=== PATIENT | female | born 1945 | race Caucasian/White ===

== ENCOUNTER 2017-01-25 01:16 | Inpatient (IN) | payer BC, MEDICARE ==
--- NOTE | 2017-01-25 01:58 | ED Physician Chart ---
Chief Complaint/HPI - Patient Information Date Seen:: 01/25/17 Time Seen:: 01:32 Chief Complaint:: HYPERGLYCEMIA History of Present Illness:: THIS IS A 71 YO FEMALE WHO WAS FOUND DOWN IN [place] STREETS AND BIB EMS. SHE STATES THAT HER SUGAR WAS UP AND THAT SHE IS HOMELESS. SHE DENIES DRUG, ALCOHOL AND SMOKING. Allergies:: Allergies Allergy/AdvReac Type Severity Reaction Status Date / Time Penicillins Allergy Verified 01/25/17 01:31 Vitals:: Vital Signs - 8 hr 01/25/17 01:25 Temp 97.6 F HR 102 RR 19 BP 123/78 O2 Sat % 99 Historian:: Patient, EMS Review:: Nurse's Note Reviewed Review of Systems - Review of Systems General/Constitutional: No fever, No chills, No weight loss, No weakness, No diaphoresis, No edema, No loss of appetite Skin: No skin lesions, No rash, No bruising Head: No headache, No light-headedness Eyes: No loss of vision, No pain, No diplopia ENT: No earache, No nasal drainage, No sore throat, No tinnitus Neck: No neck pain, No swelling, No thyromegaly, No stiffness, No mass noted Cardio Vascular: No chest pain, No palpitations, No PND, No orthopnea, No edema Pulmonary: No SOB, No cough, No sputum, No wheezing GI: No nausea, No vomiting, No diarrhea, No pain, No melena, No hematochezia, No constipation, No hematemesis G/U: No dysuria, No frequency, No hematuria Musculoskeletal: No bone or joint pain, No back pain, No muscle pain Endocrine: No polyuria, No polydipsia Psychiatric: Prior psych history, Depression, No anxiety, No suicidal ideation Hematopoietic: No bruising, No lymphadenopathy Allergic/Immuno: No urticaria, No angioedema Neurological: No syncope, No focal symptoms, No weakness, No paresthesia, No headache, No seizure, No dizziness, No confusion, No vertigo Past Medical History - Past Medical History Obtainable: Yes Past Medical History: HTN, DM, Dementia Family History: Diabetes Mel[place] (MOTHER AND FATHER ARE DIABETICS) Social History: Non Smoker, No Alcohol, No Drug Use, Homeless Surgical History: other (GASTRIC BYPASS) Family Medical History - Family Member Mother History Unknown: Yes Hx Family Diabetes: Yes Physical Exam - Physical Examination General/Constitutional: Awake, Well-developed, well-nourished, Alert, No distress, GCS 15, Non-toxic appearing, Ambulatory Head: Atraumatic Eyes: Lids, conjuctiva normal, PERRL, EOMI Skin: Nl inspection, No rash, No skin lesions, No ecchymosis, Well hydrated, No lymphadenopathy ENMT: External ears, nose nl, Nasal exam nl, Lips, teeth, gums nl Neck: Nontender, Full ROM w/o pain, No JVD, No nuchal rigidity, No bruit, No mass, No stridor Respiratory: Nl effort/Exclusion, Clear to Auscultation, No Wheeze/Rhonchi/Rales Cardio Vascular: RRR, No murmur, gallop, rubs, NL S1 S2 GI: No organomegaly, No hernia, Normal BS's, Nondistended, No mass/bruits, No McBurney tenderness Other GI comments:: THERE WAS GENERALIZE TENDERNESS OF THE LOWER ABDOMEN. : No CVA tenderness Extremities: No tenderness or effusion, Full ROM, normal strength in all extremities, No edema, Normal digits & nails Neuro/Psych: Alert/oriented, DTR's symmetric, Normal sensory exam, Normal motor strength, Judgement/insight normal, Mood normal, Normal gait, No focal deficits Misc: normal gait, Normal back, No paraspinal tenderness Labs/Radiology/EKG Results - Lab Results Results: Laboratory Tests 01/25/17 01:47 POC Glucose 317 H - EKG Interpretations EKG Time:: 01:52 Rhythm: SINUS [place]: RIGHT Rate: 87 ED Septic Shock - . Is Septic Shock (SBP<90, OR Lactate>4 mmol\L) present?: No - <6hrs of presentation: Vital Signs: Vital Signs - 8 hr 01/25/17 01:25 Temp 97.6 F HR 102 RR 19 BP 123/78 O2 Sat % 99 Reassessment (Disposition) - Reassessment Reassessment Condition:: Improved - Diagnosis Diagnosis:: HYPERGLYCEMIA URINARY TRACT INFECTION DRUG ABUSE - Patient Disposition Discharge/Transfer:: Acute Care w/in this hosp Admitting Medical Physician:: Antonio Aggarwal Condition at Disposition:: Improved ED Discharge Plan - Patient Disposition Admit/Discharge/Transfer: Acute Care w/in this hosp Condition at Disposition: Improved
[2017-01-25 02:04] LABS: % BASOPHILS 0.8 % (0.0-2.0); % EOSINOPHILS 0.8 % (0.0-5.0); % LYMPHOCYTES 13.3 % (20.0-50.0); % NEUTROPHILS 75.1 % (40.0-80.0); HEMATOCRIT 39.8 % (35.0-45.0); HEMOGLOBIN 13.8 gm/dL (11.7-16.1); MEAN CELL VOLUME 98.7 fl (81-100); MEAN CORPUSCULAR HEMOGLOBIN 34.3 pg (27.0-31.0); MEAN CORPUSCULAR HGB CONC 34.8 pg (28.0-36.0); MEAN PLATELET VOLUME 7.3 fl; NEUTROPHILE ABSOLUTE 10.5 Th/cmm (1.8-8.0); PLATELET COUNT 331 Th/cmm (150-400); RED BLOOD COUNT 4.03 Mil/cmm (3.80-5.20); RED CELL DISTRIBUTION WIDTH 11.7 % (11.5-20.0)
[2017-01-25 02:22] LABS: ACETAMINOPHEN < 10.0 ug/mL (10.0-30.0); ALB/GLOB RATIO 1.8 (1.0-1.8); ALKALINE PHOSPHATASE 66 U/L (34-104); ANION GAP 10.3 (7.0-16.0); BILIRUBIN,TOTAL 0.5 mg/dL (0.3-1.0); BUN - UREA NITROGEN 19 mg/dL (7-25); CALCIUM SERUM 9.2 mg/dL (8.6-10.3); CARBON DIOXIDE 27.1 mEq/L (21.0-31.0); CHLORIDE 98 mEq/L (98-107); CHOLESTEROL 146 mg/dL (<200); GLUCOSE 319 mg/dL (70-105); POTASSIUM SERUM 3.4 mEq/L (3.5-5.1); SGOT 41 U/L (13-39); SGPT/ALT 25 U/L (7-52); SODIUM SERUM 132 mEq/L (136-145); TRIGLYCERIDES 98 mg/dL (<150)
[2017-01-25 02:38] LABS: INR 0.95 (0.5-1.4); PROTHROMBIN TIME (TEST) 9.9 SECONDS (9.5-11.5)
[2017-01-25] MEDS ORDERED: cefTRIAXone 1 GM in Sodium Chloride 0.9% 50 ML IV ONE (03:34)
[2017-01-25 03:40] LABS: URINE BILIRUBIN NEGATIVE (NEGATIVE); URINE COLOR YELLOW; URINE GLUCOSE (UA) 500 mg/dL (NEGATIVE); URINE KETONE NEGATIVE (NEGATIVE)
[2017-01-25 03:41] LABS: URINE BLOOD NEGATIVE (NEGATIVE); URINE PH 5.5; URINE PROTEIN NEGATIVE (NEGATIVE); URINE RBC 0-2 /hpf (0-5)
[2017-01-25 03:42] LABS: URINE BACTERIA MANY /hpf (NONE SEEN); URINE EPITHELIAL CELLS OCCASIONAL /lpf (FEW)
[2017-01-25 03:43] LABS: AMPHETAMINE URINE POSITIVE (NEGATIVE); BARBITURATES URINE NEGATIVE (NEGATIVE)
--- NOTE | 2017-01-25 08:43 | Diagnostic Imaging Report ---
Portable chest x-ray HISTORY: Cough The heart size is normal. Atherosclerotic calcification seen in the aorta. No acute focal pulmonary processes. No hilar or mediastinal abnormalities. Degenerative changes seen to the spine. IMPRESSION: 1. No acute abnormalities 2. Atherosclerotic vascular changes
--- NOTE | 2017-01-25 12:50 | Admit Criteria Form ---
Admit Criteria Forms - Admit Criteria Diagnosis: DIABETES Clinical Indications for Admission to Inpatient Care (Place 'X' for any and all applicable criteria): Admission is indicated by presence of ALL (if I & II) or ANY ONE (if III or IV) of the following (1)(2)(3)(4): [X]I. Diabetes is uncontrolled as indicated by ANY ONE of the following: [ ]a) Diabetic ketoacidosis as indicated by ALL of the following (8): [ ]i) Hyperglycemia (eg, plasma glucose greater than 200 mg/ dL (11.1 mmol/L)) [ ]ii) Acidosis (eg, arterial pH less than 7.30, serum bicarbonate level less than 15 mEq/L (mmol/L)) [ ]iii) Moderate ketonuria or ketonemia [ ]b) Hyperglycemic hyperosmolar state as indicated by ALL of the following(9)(10): [ ]i) Neurologic dysfunction (eg, stupor, coma, hemiparesis , seizure)(13) [ ]ii) Plasma glucose greater than 600 mg/dL (33.3 mmol/L) [ ]iii) Serum osmolality greater than 320 mOsm/kg (mmol/kg) [X]c) Severe signs or symptoms secondary to hyperglycemia indicated by ANY ONE of the following: [ ]i) Altered mental status(10) [ ]ii) Significant hypovolemia or dehydration [ ]iii) Intractable nausea or vomiting [X]iv) Unexplained fever or severe infection [ ]v) Severe electrolyte abnormality (eg, hypokalemia, hyperkalemia, hypernatremia) [X]II. Management at other levels of care (Also use Diabetes: Observation Care as appropriate) is not feasible because of ANY ONE of the following: [X]a) Condition was not adequately corrected with treatment at other levels of care. [ ]b) Treatment at other levels of care is not appropriate because of condition severity (eg, hyperosmolar coma). [ ]III. Contraindications and/or Inappropriate clinical situations for Observational Care in patients with Diabetes, when ANY ONE of the following is required: [ ]a) Patient require specific diagnostic workup or therapeutic intervention 22 [ ]b) Patient with abnormal vital signs or altered mental status 23 [ ]IV. General contraindications and/or Inappropriate clinical situations for Observational Care in patients with Diabetes, when ANY ONE of the following is required: [ ]a) Prediction of prolongation of LOS based on ANY ONE of the following may be considered as a contraindication for observational care 2, 3, 4, 5, 6, 7, 8, 9, 10, 11 [ ]i) Age > 65 yrs. [ ]ii) Patient arriving by ambulance [ ]iii) Patient with high acuity [ ]iv) Patient requiring vital sign monitoring [ ]v) Patient on IV medication [ ]b) Systolic blood pressures 180mmHg 3,12 [ ]c) Patient with altered mental status including delirium and other alteration of consciousness, (3) [ ]d) Patient whose discharge disposition will be to a care home home or rehabilitation home should not be managed in Emergency Department Observation Unit. CMS rule requires 3 days hospital stay before such placement.3,13 [ ]e) Patient with failure to thrive due to broad array of etiologies 3,16,17 [ ]f) Inability to ambulate 3,14 Extended stay beyond goal length of stay may be needed for(3)(20): [ ]a) Treatment of precipitating causes [ ]b) Development of hypoglycemia [ ]c) Complications of treatment [ ]d) Complications of decompensated diabetes (eg, acute gastric dilatation, persistent metabolic or neurologic derangement) [ ]e) Active Comorbidities [ ]f) Older patients( 65 years or older) The original [facility] content created by [employer] has been revised. The portions of the content which have been revised are identified through the use of italic text or in bold,and [facility] has neither reviewed nor approved the modified material. All other unmodified content is copyright [facility]. Please see references footnoted in the original [facility] edition 2016 Admit Criteria Met?: Yes
[2017-01-25] MEDS ORDERED: Morphine Sulfate 2 mg/mL 1mL Syr IVP PRN ×2 (16:25→16:27)
[2017-01-25] MEDS: HYDROmorphone 2 mg/mL 1mL Vial IVP PRN (19:51)
--- NOTE | 2017-01-25 20:46 | History & Physical ---
HISTORY: This patient is a 71-year-old homeless who was found on the street and found to have high blood sugar. The patient was altered, was brought to the Emergency Room. REVIEW OF SYSTEMS: The patient's systems review is essentially negative except for some confusion. PAST MEDICAL HISTORY: Included history of hypertension, diabetes, and dementia. PHYSICAL EXAMINATION: GENERAL: The patient is awake and alert. The patient is ____ confused. VITAL SIGNS: Temperature was normal at 97.6, heart rate 102, respirations . HEENT: Normal. NECK: Supple and nontender. LUNGS: Clear. CARDIOVASCULAR SYSTEM: S1 and S2 heard. ABDOMEN: Soft. Bowel sounds are heard. CENTRAL NERVOUS SYSTEM: Grossly normal. LABORATORY DATA: The patient's EKG showed no sinus rhythm. The patient ____ high. Urine showed no evidence of infection. DIAGNOSES: Urinary tract infection, rule out sepsis, history of hyperglycemia, history of drug abuse, and history of dementia. PLAN: The patient is being admitted. I will go ahead and do the workup done, and I will follow the patient as well as give her IV antibiotics. I will have Dr. Arias see the patient and also Dr. Arredondo and I will follow the patient. JOB# [id number]
[2017-01-26] MEDS: HYDROmorphone 2 mg/mL 1mL Vial IVP PRN ×3 (01:03→14:46)
--- NOTE | 2017-01-26 03:59 | Consultation ---
REFERRING PHYSICIAN: Dr. Jasen Urrutia. REASON FOR CONSULTATION: Sepsis and UTI. HISTORY OF PRESENT ILLNESS: The patient is a 71-year-old female with a history of diabetes mellitus found on the street. She was brought by ambulance for further evaluation and management. She was found to have high sugar. She started complaining of generalized abdominal pain mainly in the epigastric area and lower abdomen. On initial evaluation, the patient was afebrile and WBC count was 14,000. This patient was diagnosed to have sepsis and UTI and ID consult was called for further evaluation and management. Meanwhile, the patient had received Rocephin at 1 gram IV in the ER without any reaction. ALLERGIES: The patient documented allergy to penicillin, but has tolerated Rocephin without any difficulty. PAST MEDICAL HISTORY: Includes diabetes mellitus, hypertension and dementia. FAMILY HISTORY: Diabetes mellitus. Mother and father both were diabetic. SOCIAL HISTORY: The patient denies any smoking, alcohol or drug use. The patient is homeless. However, the patient's opioid and amphetamine and methamphetamine were positive on drug screen. PAST SURGICAL HISTORY: Gastric bypass surgery. REVIEW OF SYSTEMS: GENERAL: The patient denies any fever or chills. HEENT: No diplopia, no photophobia and no sore throat. RESPIRATORY: No cough and no shortness of breath. CARDIOVASCULAR: No chest pain or palpitation. GASTROINTESTINAL: The patient denies any nausea, vomiting, diarrhea or constipation. The patient has generalized abdominal pain mainly in epigastric and lower abdomen. GENITOURINARY: No dysuria and no hematuria. MUSCULOSKELETAL: No muscle pain or joint pain. NEUROLOGIC: No headache, no dizziness and no focal weakness. PHYSICAL EXAMINATION: VITAL SIGNS: Current vital signs show temperature is 98.4, pulse 114, respiration 19 and blood pressure 112/54. GENERAL: The patient is comfortable lying in the bed, not in acute distress. HEENT: Head is normocephalic and atraumatic. Oral cavity moist. [place] tongue. Eyes: No pallor and no icterus. Pupils PERRLA, EOMI. NECK: Supple. No JVD and no carotid bruit. Trachea in midline. CHEST: Bilateral breath sounds. No crackles or wheezing. HEART: S1 and S2 within normal limits. Regular rhythm. No murmur and no gallop. ABDOMEN: Soft, seems benign. The patient has tenderness in the lower abdomen suprapubic area. Bowel sounds present. EXTREMITIES: No cyanosis, no clubbing and no edema. NEUROLOGICAL: Alert, awake and oriented x 3, no focal neurodeficit.. LABORATORY DATA: Lab lynne current lab shows WBC count is 14,000, hemoglobin 13.8, hematocrit 39.8, platelets are 331,000 and neutrophil is 75%. Sodium is 132, potassium 3.4, chloride 98, bicarbonate is 27, BUN is 19, creatinine 1 and glucose is 319. AST 41, ALT 24 and alkaline phosphatase is 66. Urinalysis shows positive nitrite and WBC 10-25 and leukoesterase negative and many bacteria. Drug screen is positive for opioids, amphetamine and methamphetamine. Chest x-ray shows no active disease. IMPRESSION: 1. Leukocytosis maybe reactive versus sepsis. 2. Urinary tract infection. 3. Hyperglycemia, uncontrolled diabetes mellitus. 4. Drug abuse. 5. Hypertension. RECOMMENDATIONS: We will resume Rocephin and follow the blood cultures which was done in the ER, check RPR, check HIV screen. Check CBC. Check urine culture and go from there. Follow for ultrasound of the abdomen. Thank you, Dr. Aggarwal for involving me in taking care of this patient. JOB# [id number] MTDMoris
[2017-01-26 05:25] LABS: MEAN CORPUSCULAR HEMOGLOBIN 33.3 pg (27.0-31.0); MEAN CORPUSCULAR HGB CONC 33.6 pg (28.0-36.0); MEAN PLATELET VOLUME 7.7 fl; PLATELET COUNT 389 Th/cmm (150-400); RED BLOOD COUNT 4.74 Mil/cmm (3.80-5.20); RED CELL DISTRIBUTION WIDTH 11.9 % (11.5-20.0)
[2017-01-26 05:29] LABS: HEMOGLOBIN 15.8 gm/dL (11.7-16.1); WHITE BLOOD COUNT 20.8 Th/cmm (4.8-10.8)
--- NOTE | 2017-01-26 09:10 | General Progress Note ---
Subjective - Review of Systems Events since last encounter: no distress Objective - Results Result Diagrams: 01/26/17 05:02 01/25/17 01:48 Recent Labs: Laboratory Last Values WBC 20.8 Th/cmm (4.8-10.8) H* D 01/26/17 05:02 RBC 4.74 Mil/cmm (3.80-5.20) 01/26/17 05:02 Hgb 15.8 gm/dL (11.7-16.1) D 01/26/17 05:02 Hct 47.0 % (35.0-45.0) H D 01/26/17 05:02 MCV 99.0 fl (81-100) 01/26/17 05:02 MCH 33.3 pg (27.0-31.0) H 01/26/17 05:02 MCHC Differential 33.6 pg (28.0-36.0) 01/26/17 05:02 RDW 11.9 % (11.5-20.0) 01/26/17 05:02 Plt Count 389 Th/cmm (150-400) 01/26/17 05:02 MPV 7.7 fl 01/26/17 05:02 Neutrophils % 75.1 % (40.0-80.0) 01/25/17 01:48 Lymphocytes % 13.3 % (20.0-50.0) L 01/25/17 01:48 Monocytes % 10.0 % (2.0-10.0) 01/25/17 01:48 Eosinophils % 0.8 % (0.0-5.0) 01/25/17 01:48 Basophils % 0.8 % (0.0-2.0) 01/25/17 01:48 PT 9.9 SECONDS (9.5-11.5) 01/25/17 01:48 INR 0.95 (0.5-1.4) 01/25/17 01:48 Sodium 132 mEq/L (136-145) L 01/25/17 01:48 Potassium 3.4 mEq/L (3.5-5.1) L 01/25/17 01:48 Chloride 98 mEq/L (98-107) 01/25/17 01:48 Carbon Dioxide 27.1 mEq/L (21.0-31.0) 01/25/17 01:48 Anion Gap 10.3 (7.0-16.0) 01/25/17 01:48 BUN 19 mg/dL (7-25) 01/25/17 01:48 Creatinine 1.0 mg/dL (0.6-1.2) 01/25/17 01:48 Est GFR ( Amer) > 60.0 ml/min (>90) 01/25/17 01:48 Est GFR (Non-Af Amer) 58.4 ml/min 01/25/17 01:48 BUN/Creatinine Ratio 19.0 01/25/17 01:48 Glucose 319 mg/dL (70-105) H 01/25/17 01:48 POC Glucose 175 MG/DL (70 - 105) H 01/25/17 12:09 Hemoglobin A1c % 6.0 % (4.0-6.0) 01/25/17 01:48 Whole Bld Lactic Acid 1.60 mmol/L (0.60-1.99) 01/25/17 02:12 Calcium 9.2 mg/dL (8.6-10.3) 01/25/17 01:48 Total Bilirubin 0.5 mg/dL (0.3-1.0) 01/25/17 01:48 AST 41 U/L (13-39) H 01/25/17 01:48 ALT 25 U/L (7-52) 01/25/17 01:48 Alkaline Phosphatase 66 U/L (34-104) 01/25/17 01:48 Troponin I < 0.01 ng/mL (0.01-0.05) L 01/25/17 01:48 Total Protein 6.2 gm/dL (6.0-8.3) 01/25/17 01:48 Albumin 4.0 gm/dL (3.7-5.3) 01/25/17 01:48 Globulin 2.2 gm/dL 01/25/17 01:48 Albumin/Globulin Ratio 1.8 (1.0-1.8) 01/25/17 01:48 Triglycerides 98 mg/dL (<150) 01/25/17 01:48 Cholesterol 146 mg/dL (<200) 01/25/17 01:48 LDL Cholesterol Direct 37 mg/dL (75-193) L 01/25/17 01:48 HDL Cholesterol 83 mg/dL (23-92) 01/25/17 01:48 TSH 1.45 uIU/ml (0.34-5.60) 01/25/17 01:48 Urine Source CLEAN C 01/25/17 03:00 Urine Color YELLOW 01/25/17 03:00 Urine Clarity CLEAR (CLEAR) 01/25/17 03:00 Urine pH 5.5 01/25/17 03:00 Ur Specific [place] 1.010 (1.005-1.030) 01/25/17 03:00 Urine Protein NEGATIVE mg/dL (NEGATIVE) 01/25/17 03:00 Urine Glucose (UA) 500 mg/dL (NEGATIVE) H 01/25/17 03:00 Urine Ketones NEGATIVE mg/dL (NEGATIVE) 01/25/17 03:00 Urine Blood NEGATIVE (NEGATIVE) 01/25/17 03:00 Urine Nitrate POSITIVE (NEGATIVE) H 01/25/17 03:00 Urine Bilirubin NEGATIVE (NEGATIVE) 01/25/17 03:00 Urine Urobilinogen 1.0 E.U./dL (0.2 - 1.0) 01/25/17 03:00 Ur Leukocyte Esterase NEGATIVE (NEGATIVE) 01/25/17 03:00 Urine RBC 0-2 /hpf (0-5) 01/25/17 03:00 Urine WBC 10-25 /hpf (0-5) H 01/25/17 03:00 Ur Epithelial Cells OCCASIONAL /lpf (FEW) 01/25/17 03:00 Urine Bacteria MANY /hpf (NONE SEEN) 01/25/17 03:00 Salicylates < 25.0 mg/L (30.0-100.0) L 01/25/17 01:48 Urine Opiates Screen POSITIVE (NEGATIVE) H 01/25/17 03:00 Acetaminophen < 10.0 ug/mL (10.0-30.0) L 01/25/17 01:48 Ur Barbiturates Screen NEGATIVE (NEGATIVE) 01/25/17 03:00 Ur Phencyclidine Scrn NEGATIVE (NEGATIVE) 01/25/17 03:00 Amphetamines Screen POSITIVE (NEGATIVE) H 01/25/17 03:00 U Methamphetamines Scrn POSITIVE (NEGATIVE) H 01/25/17 03:00 U Benzodiazepines Scrn NEGATIVE (NEGATIVE) 01/25/17 03:00 U Cocaine Metab Screen NEGATIVE (NEGATIVE) 01/25/17 03:00 U Cannabinoids Screen NEGATIVE (NEGATIVE) 01/25/17 03:00 Ethyl Alcohol < 10 mg/dL (0-10) 01/25/17 01:48 HIV 1&2 Antibody Screen NEGATIVE (NEG) 01/26/17 05:02 - Physical Exam Vitals and I&O: Vital Signs Temp 97.5 F 01/26/17 08:00 Pulse 119 01/26/17 08:00 Resp 18 01/26/17 08:00 BP 104/68 01/26/17 08:00 Pulse Ox 96 01/26/17 08:00 Active Medications: Current Medications Hydromorphone HCl (Dilaudid) 1 mg IVP Q3H PRN PRN Reason: MODERATE PAIN Stop: 03/26/17 17:55 Hydromorphone HCl (Dilaudid) 2 mg IVP Q3H PRN PRN Reason: SEVERE PAIN Stop: 03/26/17 17:56 Last Admin: 01/26/17 08:46 Dose: 2 mg Ceftriaxone Sodium 1 gm/ (Dextrose) 50 mls @ 100 mls/hr IV Q24H ANISH Stop: 03/27/17 20:59 Ondansetron HCl (Zofran) 4 mg IV Q6H PRN PRN Reason: Nausea / Vomiting Stop: 03/26/17 16:27 Last Admin: 01/25/17 16:42 Dose: 4 mg General: No acute distress HEENT: Atraumatic Neck: Supple Cardiovascular: Regular rate Abdomen: Bowel sounds Assessment/Plan - Problem List Patient Problems: All Active Problems H/O diabetes mellitus (Acute) Z86.39 H/O drug abuse (Acute) Z87.898 H/O: HTN (hypertension) (Acute) Z86.79 UTI (urinary tract infection) (Acute) h/o dementia (Acute) r/o sepsis (Acute) - Plan Plan: monitor vitals/diet labs cpm
[2017-01-26 09:34] LABS: BAND NEUTROPHILE 12 % (0-10); NEUTROPHILS 76 % (40-80); TOTAL CELLS COUNTED 100
[2017-01-26 09:35] LABS: PLATELET ESTIMATE ADEQUATE (NORMAL); PLATELET MORPHOLOGY NORMAL (NORMAL)
[2017-01-26 10:15] LABS: HEMATOCRIT 44.8 % (35.0-45.0); HEMOGLOBIN 15.3 gm/dL (11.7-16.1); MEAN CELL VOLUME 99.6 fl (81-100); MEAN CORPUSCULAR HGB CONC 34.1 pg (28.0-36.0); MEAN PLATELET VOLUME 7.6 fl; PLATELET COUNT 354 Th/cmm (150-400); RED BLOOD COUNT 4.49 Mil/cmm (3.80-5.20); RED CELL DISTRIBUTION WIDTH 11.7 % (11.5-20.0)
[2017-01-26 10:21] LABS: WHITE BLOOD COUNT 20.3 Th/cmm (4.8-10.8)
[2017-01-26 11:07] LABS: BAND NEUTROPHILE 9 % (0-10); NEUTROPHILS 84 % (40-80); PLATELET ESTIMATE ADEQUATE (NORMAL); PLATELET MORPHOLOGY NORMAL (NORMAL); TOTAL CELLS COUNTED 100
--- NOTE | 2017-01-26 12:08 | Diagnostic Imaging Report ---
Ultrasound abdomen HISTORY: Abdominal pain COMPARISON: None Technique: Sonography of the abdomen was performed in multiple planes. FINDINGS: Exam is markedly limited due to bowel gas. The liver demonstrates normal echogenicity. The liver margins are well-defined limiting evaluation for focal lesions. No evidence of gallstones. There may be a small amount of gallbladder sludge. No evidence of gallbladder wall thickening. The common bile duct measures 7 mm. Assessment of the pancreas is limited due to bowel gas. The right kidney measures 9.7 cm. The left kidney measures 9.5 cm. There is fullness of the bilateral renal collecting systems without evidence of valentino hydronephrosis. The renal margins are not well-defined, however, no obvious focal lesions identified. The spleen measures 9.6 cm. Evaluation of the abdominal aorta was limited on this exam. IMPRESSION: Limited exam due to bowel gas No evidence of gallstones. There is probable small amount of gallbladder sludge. No evidence of gallbladder wall thickening. Fullness of the bilateral renal collecting systems without evidence of valentino hydronephrosis.
--- NOTE | 2017-01-26 16:05 | Diagnostic Imaging Report ---
CT abdomen and pelvis without intravenous contrast Indication: Abdominal pain Comparison: None, Technique: Axial images were obtained from the lung bases to the bilateral proximal femurs without IV contrast. Oral contrast was administered. Coronal reconstructions were made. total DLP: [id number], [id number] FINDINGS: Hypoventilatory and atelectatic changes of the lung bases are noted. There is diffuse free abdominal air greatest within the upper abdomen. There is evidence of gastric bypass surgery. There is gas along the gastroesophageal junction along patient's previous surgical site. Oral contrast is seen within multiple moderately distended small bowel loops. Copious stool is noted. Appendix is not well-visualized. Small amount of free fluid is seen within the pelvis. Moderate severe atherosclerosis is noted. Advanced degenerative changes of the spine. IMPRESSION: Diffuse free abdominal air greatest along the upper abdomen. Findings may be due to underlying bowel rupture. There is gas seen along the gastroesophageal junction proximal to patient's surgical anastomotic site (please note patient has gastric bypass procedure). This area may possibly be the source of free abdominal air. Clinical correlation is recommended. Additional moderate distended loops of small bowel noted, nonspecific. A Distal small bowel obstructive process is considered less likely. Moderate stool throughout the colon. Small amount of free fluid the pelvis. No evidence of extravasation of oral contrast. Diffuse atherosclerotic vascular disease. Critical results relayed to the referring team on 01/26/2017 at 3:58 PM.
[2017-01-26] MEDS ORDERED: METHYLENE BLUE 10 MG/ML IV ONE (17:45)
[2017-01-26] MEDS ORDERED: Midazolam 1mg/ml 2 ml vial IV ONE (17:58)
[2017-01-26] MEDS ORDERED: Meperidine 50 mg/mL 1mL Syr ONE ×2 (17:58→20:54)
[2017-01-26] MEDS ORDERED: INSULIN HUMAN REGULAR 100 UNITS/ML UNIT ONE ×2 (18:30→18:32)
[2017-01-26] MEDS ORDERED: Meperidine 25 mg/mL 1mL Syr IVP PRN (19:20)
[2017-01-26] MEDS ORDERED: Lactated Ringer 1,000 ML IV SCH (19:30)
[2017-01-26] MEDS ORDERED: Clindamycin 150 mg/mL 4mL Vial IM SCH (21:00)
[2017-01-26 21:08] LABS: ABG SOURCE ARTERIAL; ALLEN TEST Positive; BE(B) -5.9 mEq/L (-3.0-3.0); FIO2 100; HCO3 19.5 mEq/L (20.0-26.0); MECH RATE 13; MECH VT 500; pH 7.33 (7.35-7.45)
--- NOTE | 2017-01-26 21:25 | Operative Report ---
PREOPERATIVE DIAGNOSES: 1. Perforated viscus. 2. Diabetes mellitus. 3. Hypertension. 4. Illegal drug use. POSTOPERATIVE DIAGNOSES: 1. Marginal ulcer perforation at the site of previous gastrojejunostomy bypass. 2. Dense adhesions. 3. Calculus cholecystitis. OPERATION DONE: 1. Exploratory laparotomy. 2. Closure of gastric perforation. 3. Placement of new gastrojejunostomy (retrocolic). 4. Open cholecystectomy. 5. Lysis of dense adhesions. ESTIMATED BLOOD LOSS: 50 mL. SURGEON: Mark Anthony Coyne M.D. LENS CLEANER: Dr. Valdivia. ANESTHESIA: General. ANESTHESIOLOGIST: Dr. Acosta. ESTIMATED BLOOD LOSS: 50 mL. INDICATIONS FOR SURGERY: The patient is homeless and no family. She claims she has a daughter in but would not return her call in last 6 years. Informed consent discussed with the patient who appears to be oriented and including possible complications, the operation depending on the findings at surgery. PROCEDURE: The patient was given general anesthesia. The abdomen was prepped with ChloraPrep and draped in appropriate manner. A midline abdominal incision was made and bleeders were coagulated. The abdominal cavity was entered. Bookwalter retractor was applied. There was whitish drainage from the perforation which turned out to be from the gastrojejunostomy site. The efferent jejunum was transected and the stomach was probed with finger to find any other source of perforation. An NG tube was placed and methylene blue was injected with no retrieval of the dye anywhere outside of the site mentioned. A SONIDO instrument was then used to affect an anastomosis between the jejunum and the stomach. The staple lines were reinforced with 3-0 silk at the site of the perforation and omentum was sutured to this. The anastomosis was placed 3 retrocolic. The adhesions to the anterior abdominal wall were lysed sharply and with cautery and the use of SupraGel. The gallbladder was markedly distended and contained multiple stones and they were removed in a retrograde fashion. Reaching the infundibulum, right ____ was applied and the infundibulum was transected and the distal portion tied with 2-0 silk. Cautery was used to affect hemostasis in the liver bed. Irrigation with saline solution confirmed good hemostasis. Cultures were taken of the secretion at the site of perforation. A Jose-Miranda drain was left in the gastrojejunostomy site and the gallbladder surgery site. The incision was closed with running suture of #1 PDS from above and below meeting at the mid portion. The subcutaneous tissues were closed with 3-0 Vicryl and the skin was closed with subcuticular suture of 4-0 Vicryl. The patient tolerated the procedure well. [facility]# [id number]
--- NOTE | 2017-01-26 21:57 | Consultation ---
EMERGENCY SURGICAL CONSULTATION REFERRING PHYSICIAN: Renan Aggarwal M.D. REASON FOR CONSULTATION: Abdominal pain. Thank you for referring this patient to me. HISTORY OF PRESENT ILLNESS: This is a 71-year-old homeless female who was admitted yesterday because of abdominal pain. The patient was found to have WBC of 14,000 and blood sugar of 319. Liver function tests are normal. The urine toxicology was positive for salicylates, opiates and amphetamines. The patient underwent ultrasound of the abdomen and this showed a small amount of sludge in the gallbladder. But because of persistent abdominal pain and vomiting, the patient underwent CT scan and this showed diffuse free abdominal air, greatest along the upper abdomen suggesting rupture of viscus. PAST MEDICAL HISTORY: The patient admits to having high blood pressure, for which she takes lisinopril; diabetes, for which she takes metformin and also peptic ulcer disease, for which she takes an antacid. She had EGD may be a year ago and apparently confirmed the evidence of gastric ulcer. Apparently on the CAT scan, there is evidence of gastric bypass surgery. SOCIAL HISTORY: The patient smokes about half a pack a day. LABORATORY DATA: Repeat WBC today, the WBC has gone up to 20,300 with 84% neutrophils and bands 12%. PHYSICAL EXAMINATION: GENERAL: Now, the patient is mostly coherent, but vague about certain events in the past. HEART AND LUNGS: Unremarkable. ABDOMEN: Severely tender with rebound and absent bowel sounds. Scars from previous surgery are noted. IMPRESSION: Perforated viscus. PLAN: The patient will need exploratory laparotomy and depending on the findings, might require partial gastrectomy and if she had previous gastric bypass before, this may be marginal ulcer. Gastric jejunostomy will be done if indicated, gallbladder sludge and may remove this in the process as well. Morbidity with and without the operation was discussed with the patient and she understands. We will take her to surgery as soon as possible. [facility]# [id number]
[2017-01-26] MEDS: Chlorhexidine Gluconate 0.12% 15mL Mouthwash MM SCH (23:24)
[2017-01-27] MEDS: HYDROmorphone 2 mg/mL 1mL Vial IVP PRN ×2 (00:52→04:26)
[2017-01-27 05:11] LABS: MEAN CELL VOLUME 99.2 fl (81-100); MEAN CORPUSCULAR HEMOGLOBIN 34.5 pg (27.0-31.0); MEAN CORPUSCULAR HGB CONC 34.8 pg (28.0-36.0); PLATELET COUNT 280 Th/cmm (150-400); RED BLOOD COUNT 3.74 Mil/cmm (3.80-5.20); RED CELL DISTRIBUTION WIDTH 11.7 % (11.5-20.0)
[2017-01-27 05:28] LABS: HEMATOCRIT 37.1 % (35.0-45.0); HEMOGLOBIN 12.9 gm/dL (11.7-16.1); WHITE BLOOD COUNT 17.1 Th/cmm (4.8-10.8)
[2017-01-27] MEDS: metroNIDAZOLE 500mg/NS 100mL 500 MG/100 ML BAG IV SCH ×3 (05:29→21:21)
[2017-01-27 05:49] LABS: ALB/GLOB RATIO 1.2 (1.0-1.8); ANION GAP 10.2 (7.0-16.0); BILIRUBIN,TOTAL 0.4 mg/dL (0.3-1.0); BUN/CREATININE RATIO 25.4; CALCIUM SERUM 7.8 mg/dL (8.6-10.3); CARBON DIOXIDE 20.9 mEq/L (21.0-31.0); CREATININE - SERUM 1.3 mg/dL (0.6-1.2); POTASSIUM SERUM 4.1 mEq/L (3.5-5.1)
[2017-01-27] MEDS: HYDROmorphone 1 mg/mL 1mL Syr IVP PRN ×5 (08:10→23:19)
[2017-01-27 08:23] LABS: BAND NEUTROPHILE 11 % (0-10); NEUTROPHILS 80 % (40-80); TOTAL CELLS COUNTED 100
[2017-01-27 08:24] LABS: PLATELET ESTIMATE ADEQUATE (NORMAL); PLATELET MORPHOLOGY NORMAL (NORMAL)
--- NOTE | 2017-01-27 09:10 | General Progress Note ---
Subjective - Review of Systems Service Date: 01/27/17 Events since last encounter: 01/27/17 labs noted check ABG might extubate minimal SANCHEZ drainage Objective - Results Result Diagrams: 01/27/17 04:44 01/27/17 04:44 Recent Labs: Laboratory Last Values WBC 17.1 Th/cmm (4.8-10.8) H 01/27/17 04:44 RBC 3.74 Mil/cmm (3.80-5.20) L 01/27/17 04:44 Hgb 12.9 gm/dL (11.7-16.1) D 01/27/17 04:44 Hct 37.1 % (35.0-45.0) D 01/27/17 04:44 MCV 99.2 fl (81-100) 01/27/17 04:44 MCH 34.5 pg (27.0-31.0) H 01/27/17 04:44 MCHC Differential 34.8 pg (28.0-36.0) 01/27/17 04:44 RDW 11.7 % (11.5-20.0) 01/27/17 04:44 Plt Count 280 Th/cmm (150-400) D 01/27/17 04:44 MPV 8.0 fl 01/27/17 04:44 Neutrophils % 75.1 % (40.0-80.0) 01/25/17 01:48 Band Neutrophils % 11 % (0-10) H 01/27/17 04:44 Lymphocytes % 13.3 % (20.0-50.0) L 01/25/17 01:48 Monocytes % 10.0 % (2.0-10.0) 01/25/17 01:48 Eosinophils % 0.8 % (0.0-5.0) 01/25/17 01:48 Basophils % 0.8 % (0.0-2.0) 01/25/17 01:48 Neutrophils (Manual) 80 % (40-80) 01/27/17 04:44 Lymphocytes 3 % (20-50) L 01/27/17 04:44 Monocytes 6 % (2-10) 01/27/17 04:44 Platelet Estimate ADEQUATE (NORMAL) 01/27/17 04:44 Platelet Morphology NORMAL (NORMAL) 01/27/17 04:44 RBC Morph Micro Appear NORMAL (NORMAL) 01/27/17 04:44 PT 9.9 SECONDS (9.5-11.5) 01/25/17 01:48 INR 0.95 (0.5-1.4) 01/25/17 01:48 Specimen Source ARTERIAL 01/26/17 21:00 Sample Site Right Radial 01/26/17 21:00 pH 7.33 (7.35-7.45) L 01/26/17 21:00 pCO2 37.0 mmHg (35.0-45.0) 01/26/17 21:00 pO2 365.0 mmHg (80.0-100.0) H 01/26/17 21:00 HCO3 19.5 mEq/L (20.0-26.0) L 01/26/17 21:00 Base Excess -5.9 mEq/L (-3.0-3.0) L 01/26/17 21:00 O2 Saturation 100.0 % (92.0-100.0) 01/26/17 21:00 Luther Test Positive 01/26/17 21:00 Vent Rate 13 01/26/17 21:00 Inspired O2 100 01/26/17 21:00 Tidal Volume 500 01/26/17 21:00 PEEP 5 01/26/17 21:00 Pressure (ins/psv/peep) N/A 01/26/17 21:00 Critical Value MMIRANDA,[employer] SALES CONSULTANT 01/26/17 21:00 Sodium 131 mEq/L (136-145) L 01/27/17 04:44 Potassium 4.1 mEq/L (3.5-5.1) 01/27/17 04:44 Chloride 104 mEq/L (98-107) 01/27/17 04:44 Carbon Dioxide 20.9 mEq/L (21.0-31.0) L 01/27/17 04:44 Anion Gap 10.2 (7.0-16.0) 01/27/17 04:44 BUN 33 mg/dL (7-25) H 01/27/17 04:44 Creatinine 1.3 mg/dL (0.6-1.2) H 01/27/17 04:44 Est GFR ( Amer) 52.2 ml/min (>90) 01/27/17 04:44 Est GFR (Non-Af Amer) 43.2 ml/min 01/27/17 04:44 BUN/Creatinine Ratio 25.4 01/27/17 04:44 Glucose 226 mg/dL (70-105) H 01/27/17 04:44 POC Glucose 217 MG/DL (70 - 105) H 01/27/17 06:53 Hemoglobin A1c % 6.0 % (4.0-6.0) 01/25/17 01:48 Whole Bld Lactic Acid 1.60 mmol/L (0.60-1.99) 01/25/17 02:12 Calcium 7.8 mg/dL (8.6-10.3) L 01/27/17 04:44 Total Bilirubin 0.4 mg/dL (0.3-1.0) 01/27/17 04:44 AST 23 U/L (13-39) 01/27/17 04:44 ALT 22 U/L (7-52) 01/27/17 04:44 Alkaline Phosphatase 54 U/L (34-104) 01/27/17 04:44 Troponin I < 0.01 ng/mL (0.01-0.05) L 01/25/17 01:48 Total Protein 5.1 gm/dL (6.0-8.3) L 01/27/17 04:44 Albumin 2.8 gm/dL (3.7-5.3) L 01/27/17 04:44 Globulin 2.3 gm/dL 01/27/17 04:44 Albumin/Globulin Ratio 1.2 (1.0-1.8) 01/27/17 04:44 Triglycerides 98 mg/dL (<150) 01/25/17 01:48 Cholesterol 146 mg/dL (<200) 01/25/17 01:48 LDL Cholesterol Direct 37 mg/dL (75-193) L 01/25/17 01:48 HDL Cholesterol 83 mg/dL (23-92) 01/25/17 01:48 TSH 1.45 uIU/ml (0.34-5.60) 01/25/17 01:48 Urine Source CLEAN C 01/25/17 03:00 Urine Color YELLOW 01/25/17 03:00 Urine Clarity CLEAR (CLEAR) 01/25/17 03:00 Urine pH 5.5 01/25/17 03:00 Ur Specific [place] 1.010 (1.005-1.030) 01/25/17 03:00 Urine Protein NEGATIVE mg/dL (NEGATIVE) 01/25/17 03:00 Urine Glucose (UA) 500 mg/dL (NEGATIVE) H 01/25/17 03:00 Urine Ketones NEGATIVE mg/dL (NEGATIVE) 01/25/17 03:00 Urine Blood NEGATIVE (NEGATIVE) 01/25/17 03:00 Urine Nitrate POSITIVE (NEGATIVE) H 01/25/17 03:00 Urine Bilirubin NEGATIVE (NEGATIVE) 01/25/17 03:00 Urine Urobilinogen 1.0 E.U./dL (0.2 - 1.0) 01/25/17 03:00 Ur Leukocyte Esterase NEGATIVE (NEGATIVE) 01/25/17 03:00 Urine RBC 0-2 /hpf (0-5) 01/25/17 03:00 Urine WBC 10-25 /hpf (0-5) H 01/25/17 03:00 Ur Epithelial Cells OCCASIONAL /lpf (FEW) 01/25/17 03:00 Urine Bacteria MANY /hpf (NONE SEEN) 01/25/17 03:00 Salicylates < 25.0 mg/L (30.0-100.0) L 01/25/17 01:48 Urine Opiates Screen POSITIVE (NEGATIVE) H 01/25/17 03:00 Acetaminophen < 10.0 ug/mL (10.0-30.0) L 01/25/17 01:48 Ur Barbiturates Screen NEGATIVE (NEGATIVE) 01/25/17 03:00 Ur Phencyclidine Scrn NEGATIVE (NEGATIVE) 01/25/17 03:00 Amphetamines Screen POSITIVE (NEGATIVE) H 01/25/17 03:00 U Methamphetamines Scrn POSITIVE (NEGATIVE) H 01/25/17 03:00 U Benzodiazepines Scrn NEGATIVE (NEGATIVE) 01/25/17 03:00 U Cocaine Metab Screen NEGATIVE (NEGATIVE) 01/25/17 03:00 U Cannabinoids Screen NEGATIVE (NEGATIVE) 01/25/17 03:00 Ethyl Alcohol < 10 mg/dL (0-10) 01/25/17 01:48 HIV 1&2 Antibody Screen NEGATIVE (NEG) 01/26/17 05:02 - Physical Exam Vitals and I&O: Vital Signs Temp 99 F 01/27/17 06:00 Pulse 117 01/27/17 08:00 Resp 19 01/27/17 08:00 BP 145/67 01/27/17 08:00 Pulse Ox 99 01/27/17 08:00 Intake & Output 01/26/17 01/27/17 01/27/17 18:59 06:59 18:59 Intake Total 300 50 Output Total 880 Balance 300 -830 Intake: Intake, IV Amount 50 cefTRIAXone 1 gm In 50 Dextrose 5% 50 ml @ 100 mls/hr IV Q24H [facility] Rx#: [id number] Oral 300 0 Output: Drainage 180 Left Lower Abdomen 180 Urine 700 Stool 0 Other: # Voids 4 Active Medications: Current Medications Chlorhexidine Gluconate (Peridex) 15 ml MM 08,1999 [facility] Stop: 03/27/17 19:59 Last Admin: 01/26/17 23:24 Dose: 15 ml Hydromorphone HCl (Dilaudid) 1 mg IVP Q3H PRN PRN Reason: MODERATE PAIN Stop: 03/26/17 17:55 Last Admin: 01/27/17 08:10 Dose: 1 mg Hydromorphone HCl (Dilaudid) 2 mg IVP Q3H PRN PRN Reason: SEVERE PAIN Stop: 03/26/17 17:56 Last Admin: 01/27/17 04:26 Dose: 2 mg Ceftriaxone Sodium 1 gm/ (Dextrose) 50 mls @ 100 mls/hr IV Q24H [facility] Stop: 03/27/17 20:59 Last Infusion: 01/27/17 00:19 Dose: Infused Lactated Ringer's (Lactated Ringer) 1,000 mls @ 0 mls/hr IV .Q0M [facility] PRN Reason: TKO Stop: 01/27/17 19:29 Last Admin: 01/27/17 03:14 Dose: 10 mls/hr Metronidazole (Flagyl) 500 mg in 100 mls @ 100 mls/hr IV Q8HR [facility] Stop: 03/28/17 04:59 Last Admin: 01/27/17 05:29 Dose: 100 mls/hr Insulin Aspart (Novolog) 0 units SUBQ Q6HR [facility] PRN Reason: Protocol Stop: 03/28/17 08:59 Meperidine HCl (Demerol) 12.5 mg IVP Q2M PRN PRN Reason: POST-OP PAIN Stop: 03/27/17 19:19 Miscellaneous (Vancomycin Iv Per Pharmacy) 1 ea PRN [facility] Stop: 03/28/17 02:29 Ondansetron HCl (Zofran) 4 mg IV Q6H PRN PRN Reason: Nausea / Vomiting Stop: 03/26/17 16:27 Last Admin: 01/25/17 16:42 Dose: 4 mg - Procedures Procedures: Procedures Procedure Code Date BYPASS STOMACH TO JEJUNUM, OPEN APPROACH [id number] 01/25/17 FUSION OF STOMACH AND BOWEL 07532 01/25/17 REMOVAL OF GALLBLADDER 43720 01/25/17 REPAIR STOMACH, OPEN APPROACH [id number] 01/25/17 RESECTION OF GALLBLADDER, OPEN APPROACH [id number] 01/25/17 RESPIRATORY VENTILATION, LESS THAN 24 CONSECUTIVE HOURS [id number] 01/25/17 STOMACH SURGERY PROCEDURE 11256 01/25/17 VENT MGMT INPAT INIT DAY 33222 01/25/17 Assessment/Plan - Problem List Patient Problems: All Active Problems H/O diabetes mellitus (Acute) Z86.39 H/O drug abuse (Acute) Z87.898 H/O: HTN (hypertension) (Acute) Z86.79 UTI (urinary tract infection) (Acute) h/o dementia (Acute) r/o sepsis (Acute) Nutritional Asmnt/Malnutr-PDOC - Dietary Evaluation Malnutrition Findings (Please click <Entered> for more info): Nutritional Asmnt/Malnutrition Start: 01/26/17 14: 32 Text: Status: Complete Freq: Document 01/26/17 14:32 GSUN (Rec: 01/26/17 14:51 [email or web address] [email or web address]) Nutritional Asmnt/Malnutrition Patient General Information Nutritional Screening Consult Diagnosis UTI, leukocytosis maybe reactive versus sepsis Pertinent Medical Hx/Surgical Hx HTN, DM, drug abuse, dementia Subjective Information 71 year old female, homeless. RD consult for BG >180. Pt was NPO at time of visit for CT abdomen/pelvis scan. Pt was agitated and in pain during visit. Pt refused to answer RD questions, repeatedly asked about bowel prep processes, then yelled at RD to leave. Pertinent Medications Dilaudid, Zofran Pertinent Labs 01/25: A1c 6, glucose 319H Nutritional Hx/Data Height 1.73 m Height (Calculated Centimeters) 172.7 Current Weight (lbs) 69.899 kg Weight (Calculated Kilograms) 69.9 Weight (Calculated Grams) 86995.6 [place] Body Weight 140lb Weight Status Approriate GI Symptoms Cultural/Ethnic/Christian Belief Unknown. Usual diet at home Unknown. Estimated Nutritional Goals BEE in Kcals: Using Current wt Calories/Kcals/Kg CBW 70kg Kcals Calculated 1750-2100kcal (25-30kcal/kg, ? possible sepsis) Protein: Using Current wt Protein Calculated 70g (1g/kg) Fluid: ml 1750-2100ml (1ml/kcal) Nutritional Problem 1. Problem Problem Altered nutrition related laboratory values related to Etiology DM aeb Signs/Symptoms: H&P, glucose 319H on adm Intervention/Recommendation Comments 1. NPO at time of visit. Diet advancement per MD, recommend [id number] to promtoe glycemic control. 2. Provide edu on DM as needed . Expected Outcomes/Goals Expected Outcomes/Goals 1. Po it[place]ake to meet 100% of estimated nutritional needs.
[2017-01-27 09:41] LABS: ABG SOURCE Arterial; ALLEN TEST PASS; BE(B) -2.2 mEq/L (-3.0-3.0); HCO3 23.2 mEq/L (20.0-26.0); pH 7.36 (7.35-7.45)
[2017-01-27 09:42] LABS: CRITICAL VALUES REPORTED BY PW; FIO2 30; MECH RATE 13; MECH VT 500
--- NOTE | 2017-01-27 09:43 | Diagnostic Imaging Report ---
Portable chest x-ray HISTORY: Shortness of breath, vascular catheter placement Compared with the prior exam of 01/25/2017, a right internal jugular line has been inserted. The tip is in the region of the junction of the superior vena cava and right subclavian veins. An endotracheal tube has been inserted. The tip is approximately 1.5 cm above the isaak. No focal pulmonary processes. IMPRESSION: 1. Line and tube placements as noted above 2. No focal pulmonary processes
--- NOTE | 2017-01-27 12:04 | General Progress Note ---
Subjective - Review of Systems Events since last encounter: no distress Objective - Results Result Diagrams: 01/27/17 04:44 01/27/17 04:44 Recent Labs: Laboratory Last Values WBC 17.1 Th/cmm (4.8-10.8) H 01/27/17 04:44 RBC 3.74 Mil/cmm (3.80-5.20) L 01/27/17 04:44 Hgb 12.9 gm/dL (11.7-16.1) D 01/27/17 04:44 Hct 37.1 % (35.0-45.0) D 01/27/17 04:44 MCV 99.2 fl (81-100) 01/27/17 04:44 MCH 34.5 pg (27.0-31.0) H 01/27/17 04:44 MCHC Differential 34.8 pg (28.0-36.0) 01/27/17 04:44 RDW 11.7 % (11.5-20.0) 01/27/17 04:44 Plt Count 280 Th/cmm (150-400) D 01/27/17 04:44 MPV 8.0 fl 01/27/17 04:44 Neutrophils % 75.1 % (40.0-80.0) 01/25/17 01:48 Band Neutrophils % 11 % (0-10) H 01/27/17 04:44 Lymphocytes % 13.3 % (20.0-50.0) L 01/25/17 01:48 Monocytes % 10.0 % (2.0-10.0) 01/25/17 01:48 Eosinophils % 0.8 % (0.0-5.0) 01/25/17 01:48 Basophils % 0.8 % (0.0-2.0) 01/25/17 01:48 Neutrophils (Manual) 80 % (40-80) 01/27/17 04:44 Lymphocytes 3 % (20-50) L 01/27/17 04:44 Monocytes 6 % (2-10) 01/27/17 04:44 Platelet Estimate ADEQUATE (NORMAL) 01/27/17 04:44 Platelet Morphology NORMAL (NORMAL) 01/27/17 04:44 RBC Morph Micro Appear NORMAL (NORMAL) 01/27/17 04:44 PT 9.9 SECONDS (9.5-11.5) 01/25/17 01:48 INR 0.95 (0.5-1.4) 01/25/17 01:48 Specimen Source Arterial 01/27/17 09:13 Sample Site Right Radial 01/27/17 09:13 pH 7.36 (7.35-7.45) 01/27/17 09:13 pCO2 41.0 mmHg (35.0-45.0) 01/27/17 09:13 pO2 100.0 mmHg (80.0-100.0) 01/27/17 09:13 HCO3 23.2 mEq/L (20.0-26.0) 01/27/17 09:13 Base Excess -2.2 mEq/L (-3.0-3.0) 01/27/17 09:13 O2 Saturation 97.0 % (92.0-100.0) 01/27/17 09:13 Luther Test PASS 01/27/17 09:13 Vent Rate 13 01/27/17 09:13 Inspired O2 30 01/27/17 09:13 Tidal Volume 500 01/27/17 09:13 PEEP 5 01/27/17 09:13 Pressure (ins/psv/peep) N/A 01/26/17 21:00 Critical Value PW 01/27/17 09:13 Sodium 131 mEq/L (136-145) L 01/27/17 04:44 Potassium 4.1 mEq/L (3.5-5.1) 01/27/17 04:44 Chloride 104 mEq/L (98-107) 01/27/17 04:44 Carbon Dioxide 20.9 mEq/L (21.0-31.0) L 01/27/17 04:44 Anion Gap 10.2 (7.0-16.0) 01/27/17 04:44 BUN 33 mg/dL (7-25) H 01/27/17 04:44 Creatinine 1.3 mg/dL (0.6-1.2) H 01/27/17 04:44 Est GFR ( Amer) 52.2 ml/min (>90) 01/27/17 04:44 Est GFR (Non-Af Amer) 43.2 ml/min 01/27/17 04:44 BUN/Creatinine Ratio 25.4 01/27/17 04:44 Glucose 226 mg/dL (70-105) H 01/27/17 04:44 POC Glucose 234 MG/DL (70 - 105) H 01/27/17 11:34 Hemoglobin A1c % 6.0 % (4.0-6.0) 01/25/17 01:48 Whole Bld Lactic Acid 1.60 mmol/L (0.60-1.99) 01/25/17 02:12 Calcium 7.8 mg/dL (8.6-10.3) L 01/27/17 04:44 Total Bilirubin 0.4 mg/dL (0.3-1.0) 01/27/17 04:44 AST 23 U/L (13-39) 01/27/17 04:44 ALT 22 U/L (7-52) 01/27/17 04:44 Alkaline Phosphatase 54 U/L (34-104) 01/27/17 04:44 Troponin I < 0.01 ng/mL (0.01-0.05) L 01/25/17 01:48 Total Protein 5.1 gm/dL (6.0-8.3) L 01/27/17 04:44 Albumin 2.8 gm/dL (3.7-5.3) L 01/27/17 04:44 Globulin 2.3 gm/dL 01/27/17 04:44 Albumin/Globulin Ratio 1.2 (1.0-1.8) 01/27/17 04:44 Triglycerides 98 mg/dL (<150) 01/25/17 01:48 Cholesterol 146 mg/dL (<200) 01/25/17 01:48 LDL Cholesterol Direct 37 mg/dL (75-193) L 01/25/17 01:48 HDL Cholesterol 83 mg/dL (23-92) 01/25/17 01:48 TSH 1.45 uIU/ml (0.34-5.60) 01/25/17 01:48 Urine Source CLEAN C 01/25/17 03:00 Urine Color YELLOW 01/25/17 03:00 Urine Clarity CLEAR (CLEAR) 01/25/17 03:00 Urine pH 5.5 01/25/17 03:00 Ur Specific [place] 1.010 (1.005-1.030) 01/25/17 03:00 Urine Protein NEGATIVE mg/dL (NEGATIVE) 01/25/17 03:00 Urine Glucose (UA) 500 mg/dL (NEGATIVE) H 01/25/17 03:00 Urine Ketones NEGATIVE mg/dL (NEGATIVE) 01/25/17 03:00 Urine Blood NEGATIVE (NEGATIVE) 01/25/17 03:00 Urine Nitrate POSITIVE (NEGATIVE) H 01/25/17 03:00 Urine Bilirubin NEGATIVE (NEGATIVE) 01/25/17 03:00 Urine Urobilinogen 1.0 E.U./dL (0.2 - 1.0) 01/25/17 03:00 Ur Leukocyte Esterase NEGATIVE (NEGATIVE) 01/25/17 03:00 Urine RBC 0-2 /hpf (0-5) 01/25/17 03:00 Urine WBC 10-25 /hpf (0-5) H 01/25/17 03:00 Ur Epithelial Cells OCCASIONAL /lpf (FEW) 01/25/17 03:00 Urine Bacteria MANY /hpf (NONE SEEN) 01/25/17 03:00 Salicylates < 25.0 mg/L (30.0-100.0) L 01/25/17 01:48 Urine Opiates Screen POSITIVE (NEGATIVE) H 01/25/17 03:00 Acetaminophen < 10.0 ug/mL (10.0-30.0) L 01/25/17 01:48 Ur Barbiturates Screen NEGATIVE (NEGATIVE) 01/25/17 03:00 Ur Phencyclidine Scrn NEGATIVE (NEGATIVE) 01/25/17 03:00 Amphetamines Screen POSITIVE (NEGATIVE) H 01/25/17 03:00 U Methamphetamines Scrn POSITIVE (NEGATIVE) H 01/25/17 03:00 U Benzodiazepines Scrn NEGATIVE (NEGATIVE) 01/25/17 03:00 U Cocaine Metab Screen NEGATIVE (NEGATIVE) 01/25/17 03:00 U Cannabinoids Screen NEGATIVE (NEGATIVE) 01/25/17 03:00 Ethyl Alcohol < 10 mg/dL (0-10) 01/25/17 01:48 HIV 1&2 Antibody Screen NEGATIVE (NEG) 01/26/17 05:02 - Physical Exam Vitals and I&O: Vital Signs Temp 99 F 01/27/17 06:00 Pulse 117 01/27/17 08:00 Resp 19 01/27/17 08:00 BP 145/67 01/27/17 08:00 Pulse Ox 99 01/27/17 08:00 Intake & Output 01/26/17 01/27/17 01/27/17 18:59 06:59 18:59 Intake Total 300 50 Output Total 880 Balance 300 -830 Intake: Intake, IV Amount 50 cefTRIAXone 1 gm In 50 Dextrose 5% 50 ml @ 100 mls/hr IV Q24H [facility] Rx#: [id number] Oral 300 0 Output: Drainage 180 Left Lower Abdomen 180 Urine 700 Stool 0 Other: # Voids 4 Active Medications: Current Medications Chlorhexidine Gluconate (Peridex) 15 ml MM 08,1999 [facility] Stop: 03/27/17 19:59 Last Admin: 01/26/17 23:24 Dose: 15 ml Hydromorphone HCl (Dilaudid) 1 mg IVP Q3H PRN PRN Reason: MODERATE PAIN Stop: 03/26/17 17:55 Last Admin: 01/27/17 11:06 Dose: 1 mg Hydromorphone HCl (Dilaudid) 2 mg IVP Q3H PRN PRN Reason: SEVERE PAIN Stop: 03/26/17 17:56 Last Admin: 01/27/17 04:26 Dose: 2 mg Ceftriaxone Sodium 1 gm/ (Dextrose) 50 mls @ 100 mls/hr IV Q24H [facility] Stop: 03/27/17 20:59 Last Infusion: 01/27/17 00:19 Dose: Infused Lactated Ringer's (Lactated Ringer) 1,000 mls @ 0 mls/hr IV .Q0M [facility] PRN Reason: TKO Stop: 01/27/17 19:29 Last Admin: 01/27/17 03:14 Dose: 10 mls/hr Metronidazole (Flagyl) 500 mg in 100 mls @ 100 mls/hr IV Q8HR [facility] Stop: 03/28/17 04:59 Last Admin: 01/27/17 05:29 Dose: 100 mls/hr Insulin Aspart (Novolog) 0 units SUBQ Q6HR [facility] PRN Reason: Protocol Stop: 03/28/17 08:59 Meperidine HCl (Demerol) 12.5 mg IVP Q2M PRN PRN Reason: POST-OP PAIN Stop: 03/27/17 19:19 Miscellaneous (Vancomycin Iv Per Pharmacy) 1 ea [facility] PRN [facility] Stop: 03/28/17 02:29 Ondansetron HCl (Zofran) 4 mg IV Q6H PRN PRN Reason: Nausea / Vomiting Stop: 03/26/17 16:27 Last Admin: 01/25/17 16:42 Dose: 4 mg General: No acute distress HEENT: Atraumatic Cardiovascular: Regular rate Abdomen: Bowel sounds - Procedures Procedures: Procedures Procedure Code Date BYPASS STOMACH TO JEJUNUM, OPEN APPROACH [id number] 01/25/17 FUSION OF STOMACH AND BOWEL 88852 01/25/17 REMOVAL OF GALLBLADDER 59129 01/25/17 REPAIR STOMACH, OPEN APPROACH [id number] 01/25/17 RESECTION OF GALLBLADDER, OPEN APPROACH [id number] 01/25/17 RESPIRATORY VENTILATION, LESS THAN 24 CONSECUTIVE HOURS [id number] 01/25/17 STOMACH SURGERY PROCEDURE 47451 01/25/17 VENT MGMT INPAT INIT DAY 21281 01/25/17 Assessment/Plan - Problem List Patient Problems: All Active Problems H/O diabetes mellitus (Acute) Z86.39 H/O drug abuse (Acute) Z87.898 H/O: HTN (hypertension) (Acute) Z86.79 UTI (urinary tract infection) (Acute) h/o dementia (Acute) r/o sepsis (Acute) - Plan Plan: monitor vitals/diet labs cpm Nutritional Asmnt/Malnutr-PDOC - Dietary Evaluation Malnutrition Findings (Please click <Entered> for more info): Nutritional Asmnt/Malnutrition Start: 01/26/17 14: 32 Text: Status: Complete Freq: Document 01/26/17 14:32 GSUN (Rec: 01/26/17 14:51 [email or web address] [email or web address]) Nutritional Asmnt/Malnutrition Patient General Information Nutritional Screening Consult Diagnosis UTI, leukocytosis maybe reactive versus sepsis Pertinent Medical Hx/Surgical Hx HTN, DM, drug abuse, dementia Subjective Information 71 year old female, homeless. RD consult for BG >180. Pt was NPO at time of visit for CT abdomen/pelvis scan. Pt was agitated and in pain during visit. Pt refused to answer RD questions, repeatedly asked about bowel prep processes, then yelled at RD to leave. Pertinent Medications Dilaudid, Zofran Pertinent Labs 01/25: A1c 6, glucose 319H Nutritional Hx/Data Height 1.73 m Height (Calculated Centimeters) 172.7 Current Weight (lbs) 69.899 kg Weight (Calculated Kilograms) 69.9 Weight (Calculated Grams) 86670.6 [place] Body Weight 140lb Weight Status Approriate GI Symptoms Cultural/Ethnic/Roman [employer] Belief Unknown. Usual diet at home Unknown. Estimated Nutritional Goals BEE in Kcals: Using Current wt Calories/Kcals/Kg CBW 70kg Kcals Calculated 1750-2100kcal (25-30kcal/kg, ? possible sepsis) Protein: Using Current wt Protein Calculated 70g (1g/kg) Fluid: ml 1750-2100ml (1ml/kcal) Nutritional Problem 1. Problem Problem Altered nutrition related laboratory values related to Etiology DM aeb Signs/Symptoms: H&P, glucose 319H on adm Intervention/Recommendation Comments 1. NPO at time of visit. Diet advancement per MD, recommend [id number] to promtoe glycemic control. 2. Provide edu on DM as needed . Expected Outcomes/Goals Expected Outcomes/Goals 1. Po it[place]ake to meet 100% of estimated nutritional needs.
[2017-01-27] MEDS: INSULIN ASPART, RECOMBINANT 100 UNITS/ML SUBQ SCH ×3 (12:15→23:55)
[2017-01-27] MEDS: Chlorhexidine Gluconate 0.12% 15mL Mouthwash MM SCH ×2 (13:14→20:27)
[2017-01-27] MEDS ORDERED: Probiotic Screen MC PRN (13:22)
--- NOTE | 2017-01-27 23:14 | Infectious Disease Prog Note ---
Infectious Disease Subjective - Review of Systems Service Date: 01/27/17 Subjective: Extubated successfully. On VM. Infectious Disease Objective - Results Result Diagrams: 01/27/17 04:44 01/27/17 04:44 Recent Labs: Laboratory Last Values WBC 17.1 Th/cmm (4.8-10.8) H 01/27/17 04:44 RBC 3.74 Mil/cmm (3.80-5.20) L 01/27/17 04:44 Hgb 12.9 gm/dL (11.7-16.1) D 01/27/17 04:44 Hct 37.1 % (35.0-45.0) D 01/27/17 04:44 MCV 99.2 fl (81-100) 01/27/17 04:44 MCH 34.5 pg (27.0-31.0) H 01/27/17 04:44 MCHC Differential 34.8 pg (28.0-36.0) 01/27/17 04:44 RDW 11.7 % (11.5-20.0) 01/27/17 04:44 Plt Count 280 Th/cmm (150-400) D 01/27/17 04:44 MPV 8.0 fl 01/27/17 04:44 Neutrophils % 75.1 % (40.0-80.0) 01/25/17 01:48 Band Neutrophils % 11 % (0-10) H 01/27/17 04:44 Lymphocytes % 13.3 % (20.0-50.0) L 01/25/17 01:48 Monocytes % 10.0 % (2.0-10.0) 01/25/17 01:48 Eosinophils % 0.8 % (0.0-5.0) 01/25/17 01:48 Basophils % 0.8 % (0.0-2.0) 01/25/17 01:48 Neutrophils (Manual) 80 % (40-80) 01/27/17 04:44 Lymphocytes 3 % (20-50) L 01/27/17 04:44 Monocytes 6 % (2-10) 01/27/17 04:44 Platelet Estimate ADEQUATE (NORMAL) 01/27/17 04:44 Platelet Morphology NORMAL (NORMAL) 01/27/17 04:44 RBC Morph Micro Appear NORMAL (NORMAL) 01/27/17 04:44 PT 9.9 SECONDS (9.5-11.5) 01/25/17 01:48 INR 0.95 (0.5-1.4) 01/25/17 01:48 Specimen Source Arterial 01/27/17 09:13 Sample Site Right Radial 01/27/17 09:13 pH 7.36 (7.35-7.45) 01/27/17 09:13 pCO2 41.0 mmHg (35.0-45.0) 01/27/17 09:13 pO2 100.0 mmHg (80.0-100.0) 01/27/17 09:13 HCO3 23.2 mEq/L (20.0-26.0) 01/27/17 09:13 Base Excess -2.2 mEq/L (-3.0-3.0) 01/27/17 09:13 O2 Saturation 97.0 % (92.0-100.0) 01/27/17 09:13 Luther Test PASS 01/27/17 09:13 Vent Rate 13 01/27/17 09:13 Inspired O2 30 01/27/17 09:13 Tidal Volume 500 01/27/17 09:13 PEEP 5 01/27/17 09:13 Pressure (ins/psv/peep) N/A 01/26/17 21:00 Critical Value PW 01/27/17 09:13 Sodium 131 mEq/L (136-145) L 01/27/17 04:44 Potassium 4.1 mEq/L (3.5-5.1) 01/27/17 04:44 Chloride 104 mEq/L (98-107) 01/27/17 04:44 Carbon Dioxide 20.9 mEq/L (21.0-31.0) L 01/27/17 04:44 Anion Gap 10.2 (7.0-16.0) 01/27/17 04:44 BUN 33 mg/dL (7-25) H 01/27/17 04:44 Creatinine 1.3 mg/dL (0.6-1.2) H 01/27/17 04:44 Est GFR ( Amer) 52.2 ml/min (>90) 01/27/17 04:44 Est GFR (Non-Af Amer) 43.2 ml/min 01/27/17 04:44 BUN/Creatinine Ratio 25.4 01/27/17 04:44 Glucose 226 mg/dL (70-105) H 01/27/17 04:44 POC Glucose 126 MG/DL (70 - 105) H 01/27/17 17:49 Hemoglobin A1c % 6.0 % (4.0-6.0) 01/25/17 01:48 Whole Bld Lactic Acid 1.60 mmol/L (0.60-1.99) 01/25/17 02:12 Calcium 7.8 mg/dL (8.6-10.3) L 01/27/17 04:44 Total Bilirubin 0.4 mg/dL (0.3-1.0) 01/27/17 04:44 AST 23 U/L (13-39) 01/27/17 04:44 ALT 22 U/L (7-52) 01/27/17 04:44 Alkaline Phosphatase 54 U/L (34-104) 01/27/17 04:44 Troponin I < 0.01 ng/mL (0.01-0.05) L 01/25/17 01:48 Total Protein 5.1 gm/dL (6.0-8.3) L 01/27/17 04:44 Albumin 2.8 gm/dL (3.7-5.3) L 01/27/17 04:44 Globulin 2.3 gm/dL 01/27/17 04:44 Albumin/Globulin Ratio 1.2 (1.0-1.8) 01/27/17 04:44 Triglycerides 98 mg/dL (<150) 01/25/17 01:48 Cholesterol 146 mg/dL (<200) 01/25/17 01:48 LDL Cholesterol Direct 37 mg/dL (75-193) L 01/25/17 01:48 HDL Cholesterol 83 mg/dL (23-92) 01/25/17 01:48 TSH 1.45 uIU/ml (0.34-5.60) 01/25/17 01:48 Urine Source CLEAN C 01/25/17 03:00 Urine Color YELLOW 01/25/17 03:00 Urine Clarity CLEAR (CLEAR) 01/25/17 03:00 Urine pH 5.5 01/25/17 03:00 Ur Specific [place] 1.010 (1.005-1.030) 01/25/17 03:00 Urine Protein NEGATIVE mg/dL (NEGATIVE) 01/25/17 03:00 Urine Glucose (UA) 500 mg/dL (NEGATIVE) H 01/25/17 03:00 Urine Ketones NEGATIVE mg/dL (NEGATIVE) 01/25/17 03:00 Urine Blood NEGATIVE (NEGATIVE) 01/25/17 03:00 Urine Nitrate POSITIVE (NEGATIVE) H 01/25/17 03:00 Urine Bilirubin NEGATIVE (NEGATIVE) 01/25/17 03:00 Urine Urobilinogen 1.0 E.U./dL (0.2 - 1.0) 01/25/17 03:00 Ur Leukocyte Esterase NEGATIVE (NEGATIVE) 01/25/17 03:00 Urine RBC 0-2 /hpf (0-5) 01/25/17 03:00 Urine WBC 10-25 /hpf (0-5) H 01/25/17 03:00 Ur Epithelial Cells OCCASIONAL /lpf (FEW) 01/25/17 03:00 Urine Bacteria MANY /hpf (NONE SEEN) 01/25/17 03:00 Salicylates < 25.0 mg/L (30.0-100.0) L 01/25/17 01:48 Urine Opiates Screen POSITIVE (NEGATIVE) H 01/25/17 03:00 Acetaminophen < 10.0 ug/mL (10.0-30.0) L 01/25/17 01:48 Ur Barbiturates Screen NEGATIVE (NEGATIVE) 01/25/17 03:00 Ur Phencyclidine Scrn NEGATIVE (NEGATIVE) 01/25/17 03:00 Amphetamines Screen POSITIVE (NEGATIVE) H 01/25/17 03:00 U Methamphetamines Scrn POSITIVE (NEGATIVE) H 01/25/17 03:00 U Benzodiazepines Scrn NEGATIVE (NEGATIVE) 01/25/17 03:00 U Cocaine Metab Screen NEGATIVE (NEGATIVE) 01/25/17 03:00 U Cannabinoids Screen NEGATIVE (NEGATIVE) 01/25/17 03:00 Ethyl Alcohol < 10 mg/dL (0-10) 01/25/17 01:48 HIV 1&2 Antibody Screen NEGATIVE (NEG) 01/26/17 05:02 - Physical Exam Vitals and I&O: Vital Signs Temp 98.7 F 01/27/17 21:00 Pulse 115 01/27/17 22:00 Resp 14 01/27/17 22:00 BP 171/72 01/27/17 22:00 Pulse Ox 100 03/23/17 22:00 Intake & Output 01/27/17 01/27/17 01/28/17 06:59 18:59 06:59 Intake Total 150 100 50 Output Total 880 860 Balance -730 -760 50 Intake: Intake, IV Amount 150 100 50 cefTRIAXone 1 gm In 50 50 Dextrose 5% 50 ml @ 100 mls/hr IV Q24H [facility] Rx#: [id number] metroNIDAZOLE 500mg/NS 100 100 100mL 500 mg In 100 ml @ 100 mls/hr IV Q8HR [facility] Rx #:[id number] Oral 0 0 Output: Drainage 180 260 Left Lower Abdomen 180 260 Urine 700 500 Stool 0 0 Other 100 Active Medications: Current Medications Chlorhexidine Gluconate (Peridex) 15 ml MM 08,1999 [facility] Stop: 03/27/17 19:59 Last Admin: 01/27/17 20:27 Dose: 15 ml Hydromorphone HCl (Dilaudid) 1 mg IVP Q3H PRN PRN Reason: MODERATE PAIN Stop: 03/26/17 17:55 Last Admin: 01/27/17 20:07 Dose: 1 mg Hydromorphone HCl (Dilaudid) 2 mg IVP Q3H PRN PRN Reason: SEVERE PAIN Stop: 03/26/17 17:56 Last Admin: 01/27/17 04:26 Dose: 2 mg Ceftriaxone Sodium 1 gm/ (Dextrose) 50 mls @ 100 mls/hr IV Q24H [facility] Stop: 03/27/17 20:59 Last Infusion: 01/27/17 20:58 Dose: Infused Metronidazole (Flagyl) 500 mg in 100 mls @ 100 mls/hr IV Q8HR [facility] Stop: 03/28/17 04:59 Last Admin: 01/27/17 21:21 Dose: 100 mls/hr Insulin Aspart (Novolog) 0 units SUBQ Q6HR [facility] PRN Reason: Protocol Stop: 03/28/17 08:59 Last Admin: 01/27/17 18:58 Dose: Not Given Lactobacillus Rhamnosus (Culturelle) 1 each PO DAILY [facility] Stop: 03/29/17 08:59 Meperidine HCl (Demerol) 12.5 mg IVP Q2M PRN PRN Reason: POST-OP PAIN Stop: 03/27/17 19:19 Miscellaneous (Vancomycin Iv Per Pharmacy) 1 [facility] PRN [facility] Stop: 03/28/17 02:29 Miscellaneous (Probiotic Screen) 1 [facility] PRN PRN PRN Reason: PROTOCOL Stop: 03/28/17 13:21 Ondansetron HCl (Zofran) 4 mg IV Q6H PRN PRN Reason: Nausea / Vomiting Stop: 03/26/17 16:27 Last Admin: 01/27/17 20:12 Dose: 4 mg General: no acute distress, well developed, well nourished HEENT: atraumatic, normocephalic, PERRLA, EOMI Neck: supple, no thyromegaly, no lymphadenopathy Cardiovascular: S1S2, regular Lungs: clear to auscultation bilaterally, clear to percussion Abdomen: soft, tender, no distended Extremities: no cyanosis, no clubbing, no edema Neurological: awake, alert, oriented, CN 2-12 intact - Procedures Procedures: Procedures Procedure Code Date BYPASS STOMACH TO JEJUNUM, OPEN APPROACH [id number] 01/25/17 FUSION OF STOMACH AND BOWEL 93139 01/25/17 REMOVAL OF GALLBLADDER 43945 01/25/17 REPAIR STOMACH, OPEN APPROACH [id number] 01/25/17 RESECTION OF GALLBLADDER, OPEN APPROACH [id number] 01/25/17 RESPIRATORY VENTILATION, LESS THAN 24 CONSECUTIVE HOURS [id number] 01/25/17 STOMACH SURGERY PROCEDURE 12096 01/25/17 VENT MGMT INPAT INIT DAY 71718 01/25/17 Infectious Disease Assmt/Plan - Problem List Patient Problems: All Active Problems H/O diabetes mellitus (Acute) Z86.39 H/O drug abuse (Acute) Z87.898 H/O: HTN (hypertension) (Acute) Z86.79 UTI (urinary tract infection) (Acute) h/o dementia (Acute) r/o sepsis (Acute) - Assessment Assessment: 1. Peritonitis. 2. Gastric bypass perforation. 3. S/p exploratory lap and repair anastomotic leak/ perforation. - Plan Plan: Continue Ceftriaxone and flagyl. Nutritional Asmnt/Malnutr-PDOC - Dietary Evaluation Malnutrition Findings (Please click <Entered> for more info): Nutritional Asmnt/Malnutrition Start: 01/26/17 14: 32 Text: Status: Complete Freq: Document 01/26/17 14:32 GSUN (Rec: 01/26/17 14:51 [email or web address] [email or web address]) Nutritional Asmnt/Malnutrition Patient General Information Nutritional Screening Consult Diagnosis UTI, leukocytosis maybe reactive versus sepsis Pertinent Medical Hx/Surgical Hx HTN, DM, drug abuse, dementia Subjective Information 71 year old female, homeless. RD consult for BG >180. Pt was NPO at time of visit for CT abdomen/pelvis scan. Pt was agitated and in pain during visit. Pt refused to answer RD questions, repeatedly asked about bowel prep processes, then yelled at RD to leave. Pertinent Medications Dilaudid, Zofran Pertinent Labs 01/25: A1c 6, glucose 319H Nutritional Hx/Data Height 1.73 m Height (Calculated Centimeters) 172.7 Current Weight (lbs) 69.899 kg Weight (Calculated Kilograms) 69.9 Weight (Calculated Grams) 46388.6 [place] Body Weight 140lb Weight Status Approriate GI Symptoms Cultural/Ethnic/Taoist Belief Unknown. Usual diet at home Unknown. Estimated Nutritional Goals BEE in Kcals: Using Current wt Calories/Kcals/Kg CBW 70kg Kcals Calculated 1750-2100kcal (25-30kcal/kg, ? possible sepsis) Protein: Using Current wt Protein Calculated 70g (1g/kg) Fluid: ml 1750-2100ml (1ml/kcal) Nutritional Problem 1. Problem Problem Altered nutrition related laboratory values related to Etiology DM aeb Signs/Symptoms: H&P, glucose 319H on adm Intervention/Recommendation Comments 1. NPO at time of visit. Diet advancement per MD, recommend [id number] to promtoe glycemic control. 2. Provide edu on DM as needed . Expected Outcomes/Goals Expected Outcomes/Goals 1. Po [place] to meet 100% of estimated nutritional needs.
[2017-01-28 04:53] LABS: HEMATOCRIT 33.9 % (35.0-45.0); HEMOGLOBIN 11.6 gm/dL (11.7-16.1); MEAN CELL VOLUME 99.4 fl (81-100); MEAN CORPUSCULAR HEMOGLOBIN 33.9 pg (27.0-31.0); MEAN CORPUSCULAR HGB CONC 34.1 pg (28.0-36.0); PLATELET COUNT 236 Th/cmm (150-400); RED BLOOD COUNT 3.41 Mil/cmm (3.80-5.20); RED CELL DISTRIBUTION WIDTH 11.9 % (11.5-20.0)
[2017-01-28] MEDS: HYDROmorphone 2 mg/mL 1mL Vial IVP PRN ×3 (05:16→18:21)
[2017-01-28] MEDS: metroNIDAZOLE 500mg/NS 100mL 500 MG/100 ML BAG IV SCH ×3 (05:18→22:07)
[2017-01-28 05:23] LABS: ALKALINE PHOSPHATASE 71 U/L (34-104); ANION GAP 8.9 (7.0-16.0); BILIRUBIN,TOTAL 0.4 mg/dL (0.3-1.0); BUN - UREA NITROGEN 28 mg/dL (7-25); CALCIUM SERUM 8.5 mg/dL (8.6-10.3); CHLORIDE 105 mEq/L (98-107); CREATININE - SERUM 0.7 mg/dL (0.6-1.2); GLUCOSE 142 mg/dL (70-105); POTASSIUM SERUM 3.9 mEq/L (3.5-5.1); SGOT 16 U/L (13-39); SGPT/ALT 17 U/L (7-52); SODIUM SERUM 138 mEq/L (136-145)
[2017-01-28 05:28] LABS: WHITE BLOOD COUNT 14.8 Th/cmm (4.8-10.8)
[2017-01-28 05:42] LABS: BAND NEUTROPHILE 3 % (0-10); NEUTROPHILS 87 % (40-80); PLATELET ESTIMATE ADEQUATE (NORMAL); PLATELET MORPHOLOGY NORMAL (NORMAL); TOTAL CELLS COUNTED 100
[2017-01-28] MEDS: INSULIN ASPART, RECOMBINANT 100 UNITS/ML SUBQ SCH ×2 (05:52→13:43)
--- NOTE | 2017-01-28 09:43 | General Progress Note ---
Subjective - Review of Systems Events since last encounter: no distress Objective - Results Result Diagrams: 01/28/17 04:41 01/28/17 04:41 Recent Labs: Laboratory Last Values WBC 14.8 Th/cmm (4.8-10.8) H 01/28/17 04:41 RBC 3.41 Mil/cmm (3.80-5.20) L 01/28/17 04:41 Hgb 11.6 gm/dL (11.7-16.1) L 01/28/17 04:41 Hct 33.9 % (35.0-45.0) L 01/28/17 04:41 MCV 99.4 fl (81-100) 01/28/17 04:41 MCH 33.9 pg (27.0-31.0) H 01/28/17 04:41 MCHC Differential 34.1 pg (28.0-36.0) 01/28/17 04:41 RDW 11.9 % (11.5-20.0) 01/28/17 04:41 Plt Count 236 Th/cmm (150-400) 01/28/17 04:41 MPV 7.0 fl 01/28/17 04:41 Neutrophils % 75.1 % (40.0-80.0) 01/25/17 01:48 Band Neutrophils % 3 % (0-10) 01/28/17 04:41 Lymphocytes % 13.3 % (20.0-50.0) L 01/25/17 01:48 Monocytes % 10.0 % (2.0-10.0) 01/25/17 01:48 Eosinophils % 0.8 % (0.0-5.0) 01/25/17 01:48 Basophils % 0.8 % (0.0-2.0) 01/25/17 01:48 Neutrophils (Manual) 87 % (40-80) H 01/28/17 04:41 Lymphocytes 3 % (20-50) L 01/28/17 04:41 Monocytes 7 % (2-10) 01/28/17 04:41 Platelet Estimate ADEQUATE (NORMAL) 01/28/17 04:41 Platelet Morphology NORMAL (NORMAL) 01/28/17 04:41 RBC Morph Micro Appear NORMAL (NORMAL) 01/28/17 04:41 PT 9.9 SECONDS (9.5-11.5) 01/25/17 01:48 INR 0.95 (0.5-1.4) 01/25/17 01:48 Specimen Source Arterial 01/27/17 09:13 Sample Site Right Radial 01/27/17 09:13 pH 7.36 (7.35-7.45) 01/27/17 09:13 pCO2 41.0 mmHg (35.0-45.0) 01/27/17 09:13 pO2 100.0 mmHg (80.0-100.0) 01/27/17 09:13 HCO3 23.2 mEq/L (20.0-26.0) 01/27/17 09:13 Base Excess -2.2 mEq/L (-3.0-3.0) 01/27/17 09:13 O2 Saturation 97.0 % (92.0-100.0) 01/27/17 09:13 Luther Test PASS 01/27/17 09:13 Vent Rate 13 01/27/17 09:13 Inspired O2 30 01/27/17 09:13 Tidal Volume 500 01/27/17 09:13 PEEP 5 01/27/17 09:13 Pressure (ins/psv/peep) N/A 01/26/17 21:00 Critical Value PW 01/27/17 09:13 Sodium 138 mEq/L (136-145) 01/28/17 04:41 Potassium 3.9 mEq/L (3.5-5.1) 01/28/17 04:41 Chloride 105 mEq/L (98-107) 01/28/17 04:41 Carbon Dioxide 28.0 mEq/L (21.0-31.0) 01/28/17 04:41 Anion Gap 8.9 (7.0-16.0) 01/28/17 04:41 BUN 28 mg/dL (7-25) H 01/28/17 04:41 Creatinine 0.7 mg/dL (0.6-1.2) 01/28/17 04:41 Est GFR ( Amer) > 60.0 ml/min (>90) 01/28/17 04:41 Est GFR (Non-Af Amer) > 60.0 ml/min 01/28/17 04:41 BUN/Creatinine Ratio 40.0 01/28/17 04:41 Glucose 142 mg/dL (70-105) H 01/28/17 04:41 POC Glucose 139 MG/DL (70-105) H 01/28/17 05:27 Hemoglobin A1c % 6.0 % (4.0-6.0) 01/25/17 01:48 Whole Bld Lactic Acid 1.60 mmol/L (0.60-1.99) 01/25/17 02:12 Calcium 8.5 mg/dL (8.6-10.3) L 01/28/17 04:41 Total Bilirubin 0.4 mg/dL (0.3-1.0) 01/28/17 04:41 AST 16 U/L (13-39) 01/28/17 04:41 ALT 17 U/L (7-52) 01/28/17 04:41 Alkaline Phosphatase 71 U/L (34-104) 01/28/17 04:41 Troponin I < 0.01 ng/mL (0.01-0.05) L 01/25/17 01:48 Total Protein 5.3 gm/dL (6.0-8.3) L 01/28/17 04:41 Albumin 2.7 gm/dL (3.7-5.3) L 01/28/17 04:41 Globulin 2.6 gm/dL 01/28/17 04:41 Albumin/Globulin Ratio 1.0 (1.0-1.8) 01/28/17 04:41 Triglycerides 98 mg/dL (<150) 01/25/17 01:48 Cholesterol 146 mg/dL (<200) 01/25/17 01:48 LDL Cholesterol Direct 37 mg/dL (75-193) L 01/25/17 01:48 HDL Cholesterol 83 mg/dL (23-92) 01/25/17 01:48 TSH 1.45 uIU/ml (0.34-5.60) 01/25/17 01:48 Urine Source CLEAN C 01/25/17 03:00 Urine Color YELLOW 01/25/17 03:00 Urine Clarity CLEAR (CLEAR) 01/25/17 03:00 Urine pH 5.5 01/25/17 03:00 Ur Specific [place] 1.010 (1.005-1.030) 01/25/17 03:00 Urine Protein NEGATIVE mg/dL (NEGATIVE) 01/25/17 03:00 Urine Glucose (UA) 500 mg/dL (NEGATIVE) H 01/25/17 03:00 Urine Ketones NEGATIVE mg/dL (NEGATIVE) 01/25/17 03:00 Urine Blood NEGATIVE (NEGATIVE) 01/25/17 03:00 Urine Nitrate POSITIVE (NEGATIVE) H 01/25/17 03:00 Urine Bilirubin NEGATIVE (NEGATIVE) 01/25/17 03:00 Urine Urobilinogen 1.0 E.U./dL (0.2 - 1.0) 01/25/17 03:00 Ur Leukocyte Esterase NEGATIVE (NEGATIVE) 01/25/17 03:00 Urine RBC 0-2 /hpf (0-5) 01/25/17 03:00 Urine WBC 10-25 /hpf (0-5) H 01/25/17 03:00 Ur Epithelial Cells OCCASIONAL /lpf (FEW) 01/25/17 03:00 Urine Bacteria MANY /hpf (NONE SEEN) 01/25/17 03:00 Salicylates < 25.0 mg/L (30.0-100.0) L 01/25/17 01:48 Urine Opiates Screen POSITIVE (NEGATIVE) H 01/25/17 03:00 Acetaminophen < 10.0 ug/mL (10.0-30.0) L 01/25/17 01:48 Ur Barbiturates Screen NEGATIVE (NEGATIVE) 01/25/17 03:00 Ur Phencyclidine Scrn NEGATIVE (NEGATIVE) 01/25/17 03:00 Amphetamines Screen POSITIVE (NEGATIVE) H 01/25/17 03:00 U Methamphetamines Scrn POSITIVE (NEGATIVE) H 01/25/17 03:00 U Benzodiazepines Scrn NEGATIVE (NEGATIVE) 01/25/17 03:00 U Cocaine Metab Screen NEGATIVE (NEGATIVE) 01/25/17 03:00 U Cannabinoids Screen NEGATIVE (NEGATIVE) 01/25/17 03:00 Ethyl Alcohol < 10 mg/dL (0-10) 01/25/17 01:48 HIV 1&2 Antibody Screen NEGATIVE (NEG) 01/26/17 05:02 - Physical Exam Vitals and I&O: Vital Signs Temp 97.7 F 01/28/17 07:00 Pulse 112 01/28/17 07:00 Resp 20 01/28/17 07:00 BP 154/65 01/28/17 07:00 Pulse Ox 98 01/28/17 07:00 Intake & Output 01/27/17 01/28/17 01/28/17 18:59 06:59 18:59 Intake Total 100 250 Output Total 860 840 Balance -760 -590 Intake: Intake, IV Amount 100 250 cefTRIAXone 1 gm In 50 Dextrose 5% 50 ml @ 100 mls/hr IV Q24H [facility] Rx#: [id number] metroNIDAZOLE 500mg/NS 100 200 100mL 500 mg In 100 ml @ 100 mls/hr IV Q8HR [facility] Rx #:[id number] Oral 0 Output: Gastric Drainage 150 Drainage 260 140 Left Lower Abdomen 260 140 Urine 500 550 Stool 0 0 Other 100 Active Medications: Current Medications Chlorhexidine Gluconate (Peridex) 15 ml MM 08,1999 [facility] Stop: 03/27/17 19:59 Last Admin: 01/27/17 20:27 Dose: 15 ml Hydromorphone HCl (Dilaudid) 1 mg IVP Q3H PRN PRN Reason: MODERATE PAIN Stop: 03/26/17 17:55 Last Admin: 01/27/17 23:19 Dose: 1 mg Hydromorphone HCl (Dilaudid) 2 mg IVP Q3H PRN PRN Reason: SEVERE PAIN Stop: 03/26/17 17:56 Last Admin: 01/28/17 05:16 Dose: 2 mg Ceftriaxone Sodium 1 gm/ (Dextrose) 50 mls @ 100 mls/hr IV Q24H [facility] Stop: 03/27/17 20:59 Last Infusion: 01/27/17 20:58 Dose: Infused Metronidazole (Flagyl) 500 mg in 100 mls @ 100 mls/hr IV Q8HR [facility] Stop: 03/28/17 04:59 Last Infusion: 01/28/17 06:18 Dose: Infused Insulin Aspart (Novolog) 0 units SUBQ Q6HR [facility] PRN Reason: Protocol Stop: 03/28/17 08:59 Last Admin: 01/28/17 05:52 Dose: Not Given Lactobacillus Rhamnosus (Culturelle) 1 each PO DAILY [facility] Stop: 03/29/17 08:59 Meperidine HCl (Demerol) 12.5 mg IVP Q2M PRN PRN Reason: POST-OP PAIN Stop: 03/27/17 19:19 Miscellaneous (Vancomycin Iv Per Pharmacy) 1 [facility] PRN [facility] Stop: 03/28/17 02:29 Miscellaneous (Probiotic Screen) 1 [facility] PRN PRN PRN Reason: PROTOCOL Stop: 03/28/17 13:21 Ondansetron HCl (Zofran) 4 mg IV Q6H PRN PRN Reason: Nausea / Vomiting Stop: 03/26/17 16:27 Last Admin: 01/27/17 20:12 Dose: 4 mg General: No acute distress HEENT: Atraumatic Neck: Supple Cardiovascular: Regular rate Abdomen: Bowel sounds - Procedures Procedures: Procedures Procedure Code Date BYPASS STOMACH TO JEJUNUM, OPEN APPROACH [id number] 01/25/17 FUSION OF STOMACH AND BOWEL 29800 01/25/17 REMOVAL OF GALLBLADDER 13792 01/25/17 REPAIR STOMACH, OPEN APPROACH [id number] 01/25/17 RESECTION OF GALLBLADDER, OPEN APPROACH [id number] 01/25/17 RESPIRATORY VENTILATION, LESS THAN 24 CONSECUTIVE HOURS [id number] 01/25/17 STOMACH SURGERY PROCEDURE 42632 01/25/17 VENT MGMT INPAT INIT DAY 56867 01/25/17 Assessment/Plan - Problem List Patient Problems: All Active Problems H/O diabetes mellitus (Acute) Z86.39 H/O drug abuse (Acute) Z87.898 H/O: HTN (hypertension) (Acute) Z86.79 UTI (urinary tract infection) (Acute) h/o dementia (Acute) r/o sepsis (Acute) - Plan Plan: monitor vitals/diet labs cpm Nutritional Asmnt/Malnutr-PDOC - Dietary Evaluation Malnutrition Findings (Please click <Entered> for more info): Nutritional Asmnt/Malnutrition Start: 01/26/17 14: 32 Text: Status: Complete Freq: Document 01/26/17 14:32 GSUN (Rec: 01/26/17 14:51 [email or web address] [email or web address]) Nutritional Asmnt/Malnutrition Patient General Information Nutritional Screening Consult Diagnosis UTI, leukocytosis maybe reactive versus sepsis Pertinent Medical Hx/Surgical Hx HTN, DM, drug abuse, dementia Subjective Information 71 year old female, homeless. RD consult for BG >180. Pt was NPO at time of visit for CT abdomen/pelvis scan. Pt was agitated and in pain during visit. Pt refused to answer RD questions, repeatedly asked about bowel prep processes, then yelled at RD to leave. Pertinent Medications Dilaudid, Zofran Pertinent Labs 01/25: A1c 6, glucose 319H Nutritional Hx/Data Height 1.73 m Height (Calculated Centimeters) 172.7 Current Weight (lbs) 69.899 kg Weight (Calculated Kilograms) 69.9 Weight (Calculated Grams) 66906.6 [place] Body Weight 140lb Weight Status Approriate GI Symptoms Cultural/Ethnic/Restorationism Belief Unknown. Usual diet at home Unknown. Estimated Nutritional Goals BEE in Kcals: Using Current wt Calories/Kcals/Kg CBW 70kg Kcals Calculated 1750-2100kcal (25-30kcal/kg, ? possible sepsis) Protein: Using Current wt Protein Calculated 70g (1g/kg) Fluid: ml 1750-2100ml (1ml/kcal) Nutritional Problem 1. Problem Problem Altered nutrition related laboratory values related to Etiology DM aeb Signs/Symptoms: H&P, glucose 319H on adm Intervention/Recommendation Comments 1. NPO at time of visit. Diet advancement per MD, recommend [id number] to promtoe glycemic control. 2. Provide edu on DM as needed . Expected Outcomes/Goals Expected Outcomes/Goals 1. Po [place] to meet 100% of estimated nutritional needs.
--- NOTE | 2017-01-28 11:16 | Infectious Disease Prog Note ---
Infectious Disease Subjective - Review of Systems Service Date: 01/28/17 Subjective: Doing well. Infectious Disease Objective - Results Result Diagrams: 01/28/17 04:41 01/28/17 04:41 Recent Labs: Laboratory Last Values WBC 14.8 Th/cmm (4.8-10.8) H 01/28/17 04:41 RBC 3.41 Mil/cmm (3.80-5.20) L 01/28/17 04:41 Hgb 11.6 gm/dL (11.7-16.1) L 01/28/17 04:41 Hct 33.9 % (35.0-45.0) L 01/28/17 04:41 MCV 99.4 fl (81-100) 01/28/17 04:41 MCH 33.9 pg (27.0-31.0) H 01/28/17 04:41 MCHC Differential 34.1 pg (28.0-36.0) 01/28/17 04:41 RDW 11.9 % (11.5-20.0) 01/28/17 04:41 Plt Count 236 Th/cmm (150-400) 01/28/17 04:41 MPV 7.0 fl 01/28/17 04:41 Neutrophils % 75.1 % (40.0-80.0) 01/25/17 01:48 Band Neutrophils % 3 % (0-10) 01/28/17 04:41 Lymphocytes % 13.3 % (20.0-50.0) L 01/25/17 01:48 Monocytes % 10.0 % (2.0-10.0) 01/25/17 01:48 Eosinophils % 0.8 % (0.0-5.0) 01/25/17 01:48 Basophils % 0.8 % (0.0-2.0) 01/25/17 01:48 Neutrophils (Manual) 87 % (40-80) H 01/28/17 04:41 Lymphocytes 3 % (20-50) L 01/28/17 04:41 Monocytes 7 % (2-10) 01/28/17 04:41 Platelet Estimate ADEQUATE (NORMAL) 01/28/17 04:41 Platelet Morphology NORMAL (NORMAL) 01/28/17 04:41 RBC Morph Micro Appear NORMAL (NORMAL) 01/28/17 04:41 PT 9.9 SECONDS (9.5-11.5) 01/25/17 01:48 INR 0.95 (0.5-1.4) 01/25/17 01:48 Specimen Source Arterial 01/27/17 09:13 Sample Site Right Radial 01/27/17 09:13 pH 7.36 (7.35-7.45) 01/27/17 09:13 pCO2 41.0 mmHg (35.0-45.0) 01/27/17 09:13 pO2 100.0 mmHg (80.0-100.0) 01/27/17 09:13 HCO3 23.2 mEq/L (20.0-26.0) 01/27/17 09:13 Base Excess -2.2 mEq/L (-3.0-3.0) 01/27/17 09:13 O2 Saturation 97.0 % (92.0-100.0) 01/27/17 09:13 Luther Test PASS 01/27/17 09:13 Vent Rate 13 01/27/17 09:13 Inspired O2 30 01/27/17 09:13 Tidal Volume 500 01/27/17 09:13 PEEP 5 01/27/17 09:13 Pressure (ins/psv/peep) N/A 01/26/17 21:00 Critical Value PW 01/27/17 09:13 Sodium 138 mEq/L (136-145) 01/28/17 04:41 Potassium 3.9 mEq/L (3.5-5.1) 01/28/17 04:41 Chloride 105 mEq/L (98-107) 01/28/17 04:41 Carbon Dioxide 28.0 mEq/L (21.0-31.0) 01/28/17 04:41 Anion Gap 8.9 (7.0-16.0) 01/28/17 04:41 BUN 28 mg/dL (7-25) H 01/28/17 04:41 Creatinine 0.7 mg/dL (0.6-1.2) 01/28/17 04:41 Est GFR ( Amer) > 60.0 ml/min (>90) 01/28/17 04:41 Est GFR (Non-Af Amer) > 60.0 ml/min 01/28/17 04:41 BUN/Creatinine Ratio 40.0 01/28/17 04:41 Glucose 142 mg/dL (70-105) H 01/28/17 04:41 POC Glucose 139 MG/DL (70-105) H 01/28/17 05:27 Hemoglobin A1c % 6.0 % (4.0-6.0) 01/25/17 01:48 Whole Bld Lactic Acid 1.60 mmol/L (0.60-1.99) 01/25/17 02:12 Calcium 8.5 mg/dL (8.6-10.3) L 01/28/17 04:41 Total Bilirubin 0.4 mg/dL (0.3-1.0) 01/28/17 04:41 AST 16 U/L (13-39) 01/28/17 04:41 ALT 17 U/L (7-52) 01/28/17 04:41 Alkaline Phosphatase 71 U/L (34-104) 01/28/17 04:41 Troponin I < 0.01 ng/mL (0.01-0.05) L 01/25/17 01:48 Total Protein 5.3 gm/dL (6.0-8.3) L 01/28/17 04:41 Albumin 2.7 gm/dL (3.7-5.3) L 01/28/17 04:41 Globulin 2.6 gm/dL 01/28/17 04:41 Albumin/Globulin Ratio 1.0 (1.0-1.8) 01/28/17 04:41 Triglycerides 98 mg/dL (<150) 01/25/17 01:48 Cholesterol 146 mg/dL (<200) 01/25/17 01:48 LDL Cholesterol Direct 37 mg/dL (75-193) L 01/25/17 01:48 HDL Cholesterol 83 mg/dL (23-92) 01/25/17 01:48 TSH 1.45 uIU/ml (0.34-5.60) 01/25/17 01:48 Urine Source CLEAN C 01/25/17 03:00 Urine Color YELLOW 01/25/17 03:00 Urine Clarity CLEAR (CLEAR) 01/25/17 03:00 Urine pH 5.5 01/25/17 03:00 Ur Specific [place] 1.010 (1.005-1.030) 01/25/17 03:00 Urine Protein NEGATIVE mg/dL (NEGATIVE) 01/25/17 03:00 Urine Glucose (UA) 500 mg/dL (NEGATIVE) H 01/25/17 03:00 Urine Ketones NEGATIVE mg/dL (NEGATIVE) 01/25/17 03:00 Urine Blood NEGATIVE (NEGATIVE) 01/25/17 03:00 Urine Nitrate POSITIVE (NEGATIVE) H 01/25/17 03:00 Urine Bilirubin NEGATIVE (NEGATIVE) 01/25/17 03:00 Urine Urobilinogen 1.0 E.U./dL (0.2 - 1.0) 01/25/17 03:00 Ur Leukocyte Esterase NEGATIVE (NEGATIVE) 01/25/17 03:00 Urine RBC 0-2 /hpf (0-5) 01/25/17 03:00 Urine WBC 10-25 /hpf (0-5) H 01/25/17 03:00 Ur Epithelial Cells OCCASIONAL /lpf (FEW) 01/25/17 03:00 Urine Bacteria MANY /hpf (NONE SEEN) 01/25/17 03:00 Salicylates < 25.0 mg/L (30.0-100.0) L 01/25/17 01:48 Urine Opiates Screen POSITIVE (NEGATIVE) H 01/25/17 03:00 Acetaminophen < 10.0 ug/mL (10.0-30.0) L 01/25/17 01:48 Ur Barbiturates Screen NEGATIVE (NEGATIVE) 01/25/17 03:00 Ur Phencyclidine Scrn NEGATIVE (NEGATIVE) 01/25/17 03:00 Amphetamines Screen POSITIVE (NEGATIVE) H 01/25/17 03:00 U Methamphetamines Scrn POSITIVE (NEGATIVE) H 01/25/17 03:00 U Benzodiazepines Scrn NEGATIVE (NEGATIVE) 01/25/17 03:00 U Cocaine Metab Screen NEGATIVE (NEGATIVE) 01/25/17 03:00 U Cannabinoids Screen NEGATIVE (NEGATIVE) 01/25/17 03:00 Ethyl Alcohol < 10 mg/dL (0-10) 01/25/17 01:48 HIV 1&2 Antibody Screen NEGATIVE (NEG) 01/26/17 05:02 - Physical Exam Vitals and I&O: Vital Signs Temp 99.8 F 01/28/17 09:00 Pulse 103 01/28/17 09:00 Resp 14 01/28/17 09:00 BP 152/68 01/28/17 09:00 Pulse Ox 98 01/28/17 09:00 Intake & Output 01/27/17 01/28/17 01/28/17 18:59 06:59 18:59 Intake Total 100 250 Output Total 860 840 Balance -760 -590 Intake: Intake, IV Amount 100 250 cefTRIAXone 1 gm In 50 Dextrose 5% 50 ml @ 100 mls/hr IV Q24H [facility] Rx#: [id number] metroNIDAZOLE 500mg/NS 100 200 100mL 500 mg In 100 ml @ 100 mls/hr IV Q8HR [facility] Rx #:[id number] Oral 0 Output: Gastric Drainage 150 Drainage 260 140 Left Lower Abdomen 260 140 Urine 500 550 Stool 0 0 Other 100 Active Medications: Current Medications Chlorhexidine Gluconate (Peridex) 15 ml MM 0800,1999 [facility] Stop: 03/27/17 19:59 Last Admin: 01/27/17 20:27 Dose: 15 ml Hydromorphone HCl (Dilaudid) 1 mg IVP Q3H PRN PRN Reason: MODERATE PAIN Stop: 03/26/17 17:55 Last Admin: 01/27/17 23:19 Dose: 1 mg Hydromorphone HCl (Dilaudid) 2 mg IVP Q3H PRN PRN Reason: SEVERE PAIN Stop: 03/26/17 17:56 Last Admin: 01/28/17 11:09 Dose: 2 mg Ceftriaxone Sodium 1 gm/ (Dextrose) 50 mls @ 100 mls/hr IV Q24H [facility] Stop: 03/27/17 20:59 Last Infusion: 01/27/17 20:58 Dose: Infused Metronidazole (Flagyl) 500 mg in 100 mls @ 100 mls/hr IV Q8HR [facility] Stop: 03/28/17 04:59 Last Infusion: 01/28/17 06:18 Dose: Infused Vancomycin HCl 0.75 gm/ Sodium (Chloride) 250 mls @ 165 mls/hr IV Q12H [facility] Stop: 03/29/17 11:59 Insulin Aspart (Novolog) 0 units SUBQ Q6HR [facility] PRN Reason: Protocol Stop: 03/28/17 08:59 Last Admin: 01/28/17 05:52 Dose: Not Given Lactobacillus Rhamnosus (Culturelle) 1 each PO DAILY [facility] Stop: 03/29/17 08:59 Meperidine HCl (Demerol) 12.5 mg IVP Q2M PRN PRN Reason: POST-OP PAIN Stop: 03/27/17 19:19 Miscellaneous (Vancomycin Iv Per Pharmacy) 1 ea PRN [facility] Stop: 03/28/17 02:29 Miscellaneous (Probiotic Screen) 1 ea PRN PRN PRN Reason: PROTOCOL Stop: 03/28/17 13:21 Ondansetron HCl (Zofran) 4 mg IV Q6H PRN PRN Reason: Nausea / Vomiting Stop: 03/26/17 16:27 Last Admin: 01/27/17 20:12 Dose: 4 mg General: no acute distress, well developed, well nourished HEENT: atraumatic, normocephalic, PERRLA Neck: supple, no thyromegaly, no lymphadenopathy Cardiovascular: S1S2, regular Lungs: clear to auscultation bilaterally, clear to percussion Abdomen: soft, tender, no distended Extremities: no cyanosis, no clubbing, no edema Neurological: awake, alert, oriented Skin: intact - Procedures Procedures: Procedures Procedure Code Date BYPASS STOMACH TO JEJUNUM, OPEN APPROACH [id number] 01/25/17 FUSION OF STOMACH AND BOWEL 15971 01/25/17 REMOVAL OF GALLBLADDER 02500 01/25/17 REPAIR STOMACH, OPEN APPROACH [id number] 01/25/17 RESECTION OF GALLBLADDER, OPEN APPROACH [id number] 01/25/17 RESPIRATORY VENTILATION, LESS THAN 24 CONSECUTIVE HOURS [id number] 01/25/17 STOMACH SURGERY PROCEDURE 81084 01/25/17 VENT MGMT INPAT INIT DAY 96801 01/25/17 Infectious Disease Assmt/Plan - Problem List Patient Problems: All Active Problems H/O diabetes mellitus (Acute) Z86.39 H/O drug abuse (Acute) Z87.898 H/O: HTN (hypertension) (Acute) Z86.79 UTI (urinary tract infection) (Acute) h/o dementia (Acute) r/o sepsis (Acute) - Assessment Assessment: 1. Peritonitis. 2. Gastric bypass perforation. 3. S/p exploratory lap and repair anastomotic leak/ perforation. - Plan Plan: Continue Ceftriaxone and flagyl. Nutritional Asmnt/Malnutr-PDOC - Dietary Evaluation Malnutrition Findings (Please click <Entered> for more info): Nutritional Asmnt/Malnutrition Start: 01/26/17 14: 32 Text: Status: Complete Freq: Document 01/26/17 14:32 GSUN (Rec: 01/26/17 14:51 [email or web address] [email or web address]) Nutritional Asmnt/Malnutrition Patient General Information Nutritional Screening Consult Diagnosis UTI, leukocytosis maybe reactive versus sepsis Pertinent Medical Hx/Surgical Hx HTN, DM, drug abuse, dementia Subjective Information 71 year old female, homeless. RD consult for BG >180. Pt was NPO at time of visit for CT abdomen/pelvis scan. Pt was agitated and in pain during visit. Pt refused to answer RD questions, repeatedly asked about bowel prep processes, then yelled at RD to leave. Pertinent Medications Dilaudid, Zofran Pertinent Labs 01/25: A1c 6, glucose 319H Nutritional Hx/Data Height 1.73 m Height (Calculated Centimeters) 172.7 Current Weight (lbs) 69.899 kg Weight (Calculated Kilograms) 69.9 Weight (Calculated Grams) 49771.6 [place] Body Weight 140lb Weight Status Approriate GI Symptoms Cultural/Ethnic/[employer] Belief Unknown. Usual diet at home Unknown. Estimated Nutritional Goals BEE in Kcals: Using Current wt Calories/Kcals/Kg CBW 70kg Kcals Calculated 1750-2100kcal (25-30kcal/kg, ? possible sepsis) Protein: Using Current wt Protein Calculated 70g (1g/kg) Fluid: ml 1750-2100ml (1ml/kcal) Nutritional Problem 1. Problem Problem Altered nutrition related laboratory values related to Etiology DM aeb Signs/Symptoms: H&P, glucose 319H on adm Intervention/Recommendation Comments 1. NPO at time of visit. Diet advancement per MD, recommend [id number] to promtoe glycemic control. 2. Provide edu on DM as needed . Expected Outcomes/Goals Expected Outcomes/Goals 1. [place] to meet 100% of estimated nutritional needs.
--- NOTE | 2017-01-28 12:36 | Pathology Report ---
[id number] Collection date: 01/26/2017 Surgeon: Dr. Iqra Coyne Specimen Description: 1: Omentum and portion of duodenum 2: Gallbladder Gross Description: Part I: Received in formalin is a short segment of small bowel measuring 3.5 cm in length x 2.0 cm in outer diameter. The outer surface of the specimen shows surgical tiara and fibrous adhesions with areas of hemorrhage coating the outer surface. Opening the small bowel segment shows areas of ulceration and hemorrhage. There are no mass lesions appreciated. Also received in the same container is a 15 x 8 x 1.0 cm apron of yellow fatty tissue consistent with omentum. Sectioning of this omental tissue shows no focal lesions. [employer] A[employer] sections are submitted in five cassettes labeled A1-A5. Cassette A1 shows omentum, cassette A2 - A5 shows small bowel segment. Gross Description: Part II: Received in formalin is a 5 x 2.5 x 1.5 cm oval gallbladder with a smooth [place]sawyer outer surface. Opening the gallbladder shows dark green bile fluid with no evidence for gallstones appreciated. The gallbladder wall ranges from 0.2 to 0.3 cm in thickness with an intact mucosal surface. Recreation Therapy Aide sections are submitted in one cassette labeled B. Microscopic Description: Part I: The histologic sections show a portion of small bowel consistent with duodenum. The outer surface of the specimen shows hemorrhagic and fibrous adhesions with acute inflammation present consisting of increased numbers of neutrophils with areas of granulation tissue reaction appreciated. There is also an area of ulcerated gastric mucosa showing hemorrhagic fragmentation compatible with a recent perforation. Diagnosis: Part I: 1. Segment of gastro - duodenal mucosa with areas of mucosal ulceration and fragmentation, consistent with recent perforation (gastro - duodenal anastomosis). 2. Areas of acute inflammation and fibrous adhesions are identified on the outer surface of the specimen. 3. A portion of benign omentum is also identified. Microscopic Description: Part II: The histologic sections show gallbladder with mild chronic inflammation present consisting of scattered collections of lymphocytes and a slightly increased thickness to the gallbladder wall. Diagnosis: Part II: Mild chronic cholecystitis, gallbladder. [facility]# [id number] [facility]
[2017-01-28] MEDS: D5-0.45NS 1,000 ML IV SCH (15:04)
[2017-01-28] MEDS: Lactobacillus Rhamnosus 10 Billion CFU Capsule PO SCH (17:16)
[2017-01-29] MEDS: INSULIN ASPART, RECOMBINANT 100 UNITS/ML SUBQ SCH ×4 (00:21→18:17)
[2017-01-29] MEDS: HYDROmorphone 1 mg/mL 1mL Syr IVP PRN ×2 (03:45→20:17)
[2017-01-29 05:27] LABS: HEMATOCRIT 31.5 % (35.0-45.0); HEMOGLOBIN 10.7 gm/dL (11.7-16.1); MEAN CELL VOLUME 99.7 fl (81-100); MEAN CORPUSCULAR HEMOGLOBIN 33.8 pg (27.0-31.0); MEAN CORPUSCULAR HGB CONC 33.9 pg (28.0-36.0); MEAN PLATELET VOLUME 7.2 fl; PLATELET COUNT 234 Th/cmm (150-400); RED BLOOD COUNT 3.16 Mil/cmm (3.80-5.20)
[2017-01-29 05:39] LABS: WHITE BLOOD COUNT 13.2 Th/cmm (4.8-10.8)
[2017-01-29] MEDS: metroNIDAZOLE 500mg/NS 100mL 500 MG/100 ML BAG IV SCH ×3 (05:59→21:30)
[2017-01-29] MEDS: Lactobacillus Rhamnosus 10 Billion CFU Capsule PO SCH (08:55)
--- NOTE | 2017-01-29 09:07 | General Progress Note ---
Subjective - Review of Systems Events since last encounter: patient wake alert Objective - Results Result Diagrams: 01/29/17 04:37 01/28/17 04:41 Recent Labs: Laboratory Last Values WBC 13.2 Th/cmm (4.8-10.8) H 01/29/17 04:37 RBC 3.16 Mil/cmm (3.80-5.20) L 01/29/17 04:37 Hgb 10.7 gm/dL (11.7-16.1) L 01/29/17 04:37 Hct 31.5 % (35.0-45.0) L 01/29/17 04:37 MCV 99.7 fl (81-100) 01/29/17 04:37 MCH 33.8 pg (27.0-31.0) H 01/29/17 04:37 MCHC Differential 33.9 pg (28.0-36.0) 01/29/17 04:37 RDW 12.0 % (11.5-20.0) 01/29/17 04:37 Plt Count 234 Th/cmm (150-400) 01/29/17 04:37 MPV 7.2 fl 01/29/17 04:37 Neutrophils % 75.1 % (40.0-80.0) 01/25/17 01:48 Band Neutrophils % 3 % (0-10) 01/28/17 04:41 Lymphocytes % 13.3 % (20.0-50.0) L 01/25/17 01:48 Monocytes % 10.0 % (2.0-10.0) 01/25/17 01:48 Eosinophils % 0.8 % (0.0-5.0) 01/25/17 01:48 Basophils % 0.8 % (0.0-2.0) 01/25/17 01:48 Neutrophils (Manual) 87 % (40-80) H 01/28/17 04:41 Lymphocytes 3 % (20-50) L 01/28/17 04:41 Monocytes 7 % (2-10) 01/28/17 04:41 Platelet Estimate ADEQUATE (NORMAL) 01/28/17 04:41 Platelet Morphology NORMAL (NORMAL) 01/28/17 04:41 RBC Morph Micro Appear NORMAL (NORMAL) 01/28/17 04:41 PT 9.9 SECONDS (9.5-11.5) 01/25/17 01:48 INR 0.95 (0.5-1.4) 01/25/17 01:48 Specimen Source Arterial 01/27/17 09:13 Sample Site Right Radial 01/27/17 09:13 pH 7.36 (7.35-7.45) 01/27/17 09:13 pCO2 41.0 mmHg (35.0-45.0) 01/27/17 09:13 pO2 100.0 mmHg (80.0-100.0) 01/27/17 09:13 HCO3 23.2 mEq/L (20.0-26.0) 01/27/17 09:13 Base Excess -2.2 mEq/L (-3.0-3.0) 01/27/17 09:13 O2 Saturation 97.0 % (92.0-100.0) 01/27/17 09:13 Luther Test PASS 01/27/17 09:13 Vent Rate 13 01/27/17 09:13 Inspired O2 30 01/27/17 09:13 Tidal Volume 500 01/27/17 09:13 PEEP 5 01/27/17 09:13 Pressure (ins/psv/peep) N/A 01/26/17 21:00 Critical Value PW 01/27/17 09:13 Sodium 138 mEq/L (136-145) 01/28/17 04:41 Potassium 3.9 mEq/L (3.5-5.1) 01/28/17 04:41 Chloride 105 mEq/L (98-107) 01/28/17 04:41 Carbon Dioxide 28.0 mEq/L (21.0-31.0) 01/28/17 04:41 Anion Gap 8.9 (7.0-16.0) 01/28/17 04:41 BUN 28 mg/dL (7-25) H 01/28/17 04:41 Creatinine 0.7 mg/dL (0.6-1.2) 01/28/17 04:41 Est GFR ( Amer) > 60.0 ml/min (>90) 01/28/17 04:41 Est GFR (Non-Af Amer) > 60.0 ml/min 01/28/17 04:41 BUN/Creatinine Ratio 40.0 01/28/17 04:41 Glucose 142 mg/dL (70-105) H 01/28/17 04:41 POC Glucose 159 MG/DL (70 - 105) H 01/29/17 06:20 Hemoglobin A1c % 6.0 % (4.0-6.0) 01/25/17 01:48 Whole Bld Lactic Acid 1.60 mmol/L (0.60-1.99) 01/25/17 02:12 Calcium 8.5 mg/dL (8.6-10.3) L 01/28/17 04:41 Total Bilirubin 0.4 mg/dL (0.3-1.0) 01/28/17 04:41 AST 16 U/L (13-39) 01/28/17 04:41 ALT 17 U/L (7-52) 01/28/17 04:41 Alkaline Phosphatase 71 U/L (34-104) 01/28/17 04:41 Troponin I < 0.01 ng/mL (0.01-0.05) L 01/25/17 01:48 Total Protein 5.3 gm/dL (6.0-8.3) L 01/28/17 04:41 Albumin 2.7 gm/dL (3.7-5.3) L 01/28/17 04:41 Globulin 2.6 gm/dL 01/28/17 04:41 Albumin/Globulin Ratio 1.0 (1.0-1.8) 01/28/17 04:41 Triglycerides 98 mg/dL (<150) 01/25/17 01:48 Cholesterol 146 mg/dL (<200) 01/25/17 01:48 LDL Cholesterol Direct 37 mg/dL (75-193) L 01/25/17 01:48 HDL Cholesterol 83 mg/dL (23-92) 01/25/17 01:48 TSH 1.45 uIU/ml (0.34-5.60) 01/25/17 01:48 Urine Source CLEAN C 01/25/17 03:00 Urine Color YELLOW 01/25/17 03:00 Urine Clarity CLEAR (CLEAR) 01/25/17 03:00 Urine pH 5.5 01/25/17 03:00 Ur Specific [place] 1.010 (1.005-1.030) 01/25/17 03:00 Urine Protein NEGATIVE mg/dL (NEGATIVE) 01/25/17 03:00 Urine Glucose (UA) 500 mg/dL (NEGATIVE) H 01/25/17 03:00 Urine Ketones NEGATIVE mg/dL (NEGATIVE) 01/25/17 03:00 Urine Blood NEGATIVE (NEGATIVE) 01/25/17 03:00 Urine Nitrate POSITIVE (NEGATIVE) H 01/25/17 03:00 Urine Bilirubin NEGATIVE (NEGATIVE) 01/25/17 03:00 Urine Urobilinogen 1.0 E.U./dL (0.2 - 1.0) 01/25/17 03:00 Ur Leukocyte Esterase NEGATIVE (NEGATIVE) 01/25/17 03:00 Urine RBC 0-2 /hpf (0-5) 01/25/17 03:00 Urine WBC 10-25 /hpf (0-5) H 01/25/17 03:00 Ur Epithelial Cells OCCASIONAL /lpf (FEW) 01/25/17 03:00 Urine Bacteria MANY /hpf (NONE SEEN) 01/25/17 03:00 Salicylates < 25.0 mg/L (30.0-100.0) L 01/25/17 01:48 Urine Opiates Screen POSITIVE (NEGATIVE) H 01/25/17 03:00 Acetaminophen < 10.0 ug/mL (10.0-30.0) L 01/25/17 01:48 Ur Barbiturates Screen NEGATIVE (NEGATIVE) 01/25/17 03:00 Ur Phencyclidine Scrn NEGATIVE (NEGATIVE) 01/25/17 03:00 Amphetamines Screen POSITIVE (NEGATIVE) H 01/25/17 03:00 U Methamphetamines Scrn POSITIVE (NEGATIVE) H 01/25/17 03:00 U Benzodiazepines Scrn NEGATIVE (NEGATIVE) 01/25/17 03:00 U Cocaine Metab Screen NEGATIVE (NEGATIVE) 01/25/17 03:00 U Cannabinoids Screen NEGATIVE (NEGATIVE) 01/25/17 03:00 Ethyl Alcohol < 10 mg/dL (0-10) 01/25/17 01:48 HIV 1&2 Antibody Screen NEGATIVE (NEG) 01/26/17 05:02 - Physical Exam Vitals and I&O: Vital Signs Temp 98.2 F 01/29/17 04:00 Pulse 87 01/29/17 06:52 Resp 12 01/29/17 06:52 BP 145/75 01/29/17 06:00 Pulse Ox 97 01/29/17 06:52 Intake & Output 01/28/17 01/29/17 01/29/17 18:59 06:59 18:59 Intake Total 560.833 500 Output Total 1010 660 Balance -449.167 -160 Intake: Intake, IV Amount 460.833 500 D5-0.45NS 1,000 ml @ 50 110.833 mls/hr IV .Q20H [facility] Rx#: [id number] Vancomycin HCl 0.75 gm In 250.0 250 Sodium Chloride 0.9% 250 ml @ 165 mls/hr IV Q12H [facility] Rx#:[id number] cefTRIAXone 1 gm In 50 Dextrose 5% 50 ml @ 100 mls/hr IV Q24H [facility] Rx#: [id number] metroNIDAZOLE 500mg/NS 100 200 100mL 500 mg In 100 ml @ 100 mls/hr IV Q8HR [facility] Rx #:[id number] Oral 0 Other 100 Output: Gastric Drainage 200 Drainage 60 Left Lower Abdomen 60 Urine 750 600 Other 60 Active Medications: Current Medications Hydromorphone HCl (Dilaudid) 1 mg IVP Q3H PRN PRN Reason: MODERATE PAIN Stop: 03/26/17 17:55 Last Admin: 01/29/17 03:45 Dose: 1 mg Hydromorphone HCl (Dilaudid) 2 mg IVP Q3H PRN PRN Reason: SEVERE PAIN Stop: 03/26/17 17:56 Last Admin: 01/28/17 18:21 Dose: 2 mg Ceftriaxone Sodium 1 gm/ (Dextrose) 50 mls @ 100 mls/hr IV Q24H [facility] Stop: 03/27/17 20:59 Last Infusion: 01/28/17 21:20 Dose: Infused Metronidazole (Flagyl) 500 mg in 100 mls @ 100 mls/hr IV Q8HR [facility] Stop: 03/28/17 04:59 Last Infusion: 01/29/17 06:59 Dose: Infused Vancomycin HCl 0.75 gm/ Sodium (Chloride) 250 mls @ 165 mls/hr IV Q12H [facility] Stop: 03/29/17 11:59 Last Infusion: 01/29/17 01:35 Dose: Infused Dextrose/Sodium Chloride (D5-0.45ns) 1,000 mls @ 50 mls/hr IV .Q20H [facility] Stop: 03/29/17 14:46 Last Infusion: 01/28/17 17:17 Dose: 50 mls/hr Insulin Aspart (Novolog) 0 units SUBQ Q6HR [facility] PRN Reason: Protocol Stop: 03/28/17 08:59 Last Admin: 01/29/17 06:24 Dose: 2 units Lactobacillus Rhamnosus (Culturelle) 1 each PO DAILY [facility] Stop: 03/29/17 08:59 Last Admin: 01/29/17 08:55 Dose: Not Given Meperidine HCl (Demerol) 12.5 mg IVP Q2M PRN PRN Reason: POST-OP PAIN Stop: 03/27/17 19:19 Miscellaneous (Vancomycin Iv Per Pharmacy) 1 ea PRN [facility] Stop: 03/28/17 02:29 Miscellaneous (Probiotic Screen) 1 ea PRN PRN PRN Reason: PROTOCOL Stop: 03/28/17 13:21 Ondansetron HCl (Zofran) 4 mg IV Q6H PRN PRN Reason: Nausea / Vomiting Stop: 03/26/17 16:27 Last Admin: 01/29/17 09:01 Dose: 4 mg General: No acute distress HEENT: Atraumatic Neck: Supple Cardiovascular: Regular rate Lungs: Clear to auscultation Abdomen: Bowel sounds - Procedures Procedures: Procedures Procedure Code Date BYPASS STOMACH TO JEJUNUM, OPEN APPROACH [id number] 01/25/17 FUSION OF STOMACH AND BOWEL 59997 01/25/17 REMOVAL OF GALLBLADDER 08138 01/25/17 REPAIR STOMACH, OPEN APPROACH [id number] 01/25/17 RESECTION OF GALLBLADDER, OPEN APPROACH [id number] 01/25/17 RESPIRATORY VENTILATION, LESS THAN 24 CONSECUTIVE HOURS [id number] 01/25/17 STOMACH SURGERY PROCEDURE 95407 01/25/17 VENT MGMT INPAT INIT DAY 11367 01/25/17 Assessment/Plan - Problem List Patient Problems: All Active Problems H/O diabetes mellitus (Acute) Z86.39 H/O drug abuse (Acute) Z87.898 H/O: HTN (hypertension) (Acute) Z86.79 UTI (urinary tract infection) (Acute) h/o dementia (Acute) r/o sepsis (Acute) - Plan Plan: monitor vitals/diet labs cpm Nutritional Asmnt/Malnutr-PDOC - Dietary Evaluation Malnutrition Findings (Please click <Entered> for more info): Nutritional Asmnt/Malnutrition Start: 01/26/17 14: 32 Text: Status: Complete Freq: Document 01/26/17 14:32 GSUN (Rec: 01/26/17 14:51 [email or web address] [id number]) Nutritional Asmnt/Malnutrition Patient General Information Nutritional Screening Consult Diagnosis UTI, leukocytosis maybe reactive versus sepsis Pertinent Medical Hx/Surgical Hx HTN, DM, drug abuse, dementia Subjective Information 71 year old female, homeless. RD consult for BG >180. Pt was NPO at time of visit for CT abdomen/pelvis scan. Pt was agitated and in pain during visit. Pt refused to answer RD questions, repeatedly asked about bowel prep processes, then yelled at RD to leave. Pertinent Medications Dilaudid, Zofran Pertinent Labs 01/25: A1c 6, glucose 319H Nutritional Hx/Data Height 1.73 m Height (Calculated Centimeters) 172.7 Current Weight (lbs) 69.899 kg Weight (Calculated Kilograms) 69.9 Weight (Calculated Grams) 87082.6 [place] Body Weight 140lb Weight Status Approriate GI Symptoms Cultural/Ethnic/[employer] Belief Unknown. Usual diet at home Unknown. Estimated Nutritional Goals BEE in Kcals: Using Current wt Calories/Kcals/Kg CBW 70kg Kcals Calculated 1750-2100kcal (25-30kcal/kg, ? possible sepsis) Protein: Using Current wt Protein Calculated 70g (1g/kg) Fluid: ml 1750-2100ml (1ml/kcal) Nutritional Problem 1. Problem Problem Altered nutrition related laboratory values related to Etiology DM aeb Signs/Symptoms: H&P, glucose 319H on adm Intervention/Recommendation Comments 1. NPO at time of visit. Diet advancement per MD, recommend [id number] to promtoe glycemic control. 2. Provide edu on DM as needed . Expected Outcomes/Goals Expected Outcomes/Goals 1. Po [place]ake to meet 100% of estimated nutritional needs.
[2017-01-29 09:19] LABS: BAND NEUTROPHILE 5 % (0-10); NEUTROPHILS 74 % (40-80); PLATELET ESTIMATE ADEQUATE (NORMAL); PLATELET MORPHOLOGY NORMAL (NORMAL); TOTAL CELLS COUNTED 100
--- NOTE | 2017-01-29 10:58 | General Progress Note ---
Subjective - Review of Systems Events since last encounter: 01/29/17 minimal SANCHEZ and NGT drainage labs OK may have ice chips Tele OK start PT and incentive sp Objective - Results Result Diagrams: 01/29/17 04:37 01/28/17 04:41 Recent Labs: Laboratory Last Values WBC 13.2 Th/cmm (4.8-10.8) H 01/29/17 04:37 RBC 3.16 Mil/cmm (3.80-5.20) L 01/29/17 04:37 Hgb 10.7 gm/dL (11.7-16.1) L 01/29/17 04:37 Hct 31.5 % (35.0-45.0) L 01/29/17 04:37 MCV 99.7 fl (81-100) 01/29/17 04:37 MCH 33.8 pg (27.0-31.0) H 01/29/17 04:37 MCHC Differential 33.9 pg (28.0-36.0) 01/29/17 04:37 RDW 12.0 % (11.5-20.0) 01/29/17 04:37 Plt Count 234 Th/cmm (150-400) 01/29/17 04:37 MPV 7.2 fl 01/29/17 04:37 Neutrophils % 75.1 % (40.0-80.0) 01/25/17 01:48 Band Neutrophils % 5 % (0-10) 01/29/17 04:37 Lymphocytes % 13.3 % (20.0-50.0) L 01/25/17 01:48 Monocytes % 10.0 % (2.0-10.0) 01/25/17 01:48 Eosinophils % 0.8 % (0.0-5.0) 01/25/17 01:48 Basophils % 0.8 % (0.0-2.0) 01/25/17 01:48 Neutrophils (Manual) 74 % (40-80) 01/29/17 04:37 Lymphocytes 8 % (20-50) L 01/29/17 04:37 Monocytes 13 % (2-10) H 01/29/17 04:37 Platelet Estimate ADEQUATE (NORMAL) 01/29/17 04:37 Platelet Morphology NORMAL (NORMAL) 01/29/17 04:37 RBC Morph Micro Appear NORMAL (NORMAL) 01/29/17 04:37 PT 9.9 SECONDS (9.5-11.5) 01/25/17 01:48 INR 0.95 (0.5-1.4) 01/25/17 01:48 Specimen Source Arterial 01/27/17 09:13 Sample Site Right Radial 01/27/17 09:13 pH 7.36 (7.35-7.45) 01/27/17 09:13 pCO2 41.0 mmHg (35.0-45.0) 01/27/17 09:13 pO2 100.0 mmHg (80.0-100.0) 01/27/17 09:13 HCO3 23.2 mEq/L (20.0-26.0) 01/27/17 09:13 Base Excess -2.2 mEq/L (-3.0-3.0) 01/27/17 09:13 O2 Saturation 97.0 % (92.0-100.0) 01/27/17 09:13 Luther Test PASS 01/27/17 09:13 Vent Rate 13 01/27/17 09:13 Inspired O2 30 01/27/17 09:13 Tidal Volume 500 01/27/17 09:13 PEEP 5 01/27/17 09:13 Pressure (ins/psv/peep) N/A 01/26/17 21:00 Critical Value PW 01/27/17 09:13 Sodium 138 mEq/L (136-145) 01/28/17 04:41 Potassium 3.9 mEq/L (3.5-5.1) 01/28/17 04:41 Chloride 105 mEq/L (98-107) 01/28/17 04:41 Carbon Dioxide 28.0 mEq/L (21.0-31.0) 01/28/17 04:41 Anion Gap 8.9 (7.0-16.0) 01/28/17 04:41 BUN 28 mg/dL (7-25) H 01/28/17 04:41 Creatinine 0.7 mg/dL (0.6-1.2) 01/28/17 04:41 Est GFR ( Amer) > 60.0 ml/min (>90) 01/28/17 04:41 Est GFR (Non-Af Amer) > 60.0 ml/min 01/28/17 04:41 BUN/Creatinine Ratio 40.0 01/28/17 04:41 Glucose 142 mg/dL (70-105) H 01/28/17 04:41 POC Glucose 159 MG/DL (70 - 105) H 01/29/17 06:20 Hemoglobin A1c % 6.0 % (4.0-6.0) 01/25/17 01:48 Whole Bld Lactic Acid 1.60 mmol/L (0.60-1.99) 01/25/17 02:12 Calcium 8.5 mg/dL (8.6-10.3) L 01/28/17 04:41 Total Bilirubin 0.4 mg/dL (0.3-1.0) 01/28/17 04:41 AST 16 U/L (13-39) 01/28/17 04:41 ALT 17 U/L (7-52) 01/28/17 04:41 Alkaline Phosphatase 71 U/L (34-104) 01/28/17 04:41 Troponin I < 0.01 ng/mL (0.01-0.05) L 01/25/17 01:48 Total Protein 5.3 gm/dL (6.0-8.3) L 01/28/17 04:41 Albumin 2.7 gm/dL (3.7-5.3) L 01/28/17 04:41 Globulin 2.6 gm/dL 01/28/17 04:41 Albumin/Globulin Ratio 1.0 (1.0-1.8) 01/28/17 04:41 Triglycerides 98 mg/dL (<150) 01/25/17 01:48 Cholesterol 146 mg/dL (<200) 01/25/17 01:48 LDL Cholesterol Direct 37 mg/dL (75-193) L 01/25/17 01:48 HDL Cholesterol 83 mg/dL (23-92) 01/25/17 01:48 TSH 1.45 uIU/ml (0.34-5.60) 01/25/17 01:48 Urine Source CLEAN C 01/25/17 03:00 Urine Color YELLOW 01/25/17 03:00 Urine Clarity CLEAR (CLEAR) 01/25/17 03:00 Urine pH 5.5 01/25/17 03:00 Ur Specific [place] 1.010 (1.005-1.030) 01/25/17 03:00 Urine Protein NEGATIVE mg/dL (NEGATIVE) 01/25/17 03:00 Urine Glucose (UA) 500 mg/dL (NEGATIVE) H 01/25/17 03:00 Urine Ketones NEGATIVE mg/dL (NEGATIVE) 01/25/17 03:00 Urine Blood NEGATIVE (NEGATIVE) 01/25/17 03:00 Urine Nitrate POSITIVE (NEGATIVE) H 01/25/17 03:00 Urine Bilirubin NEGATIVE (NEGATIVE) 01/25/17 03:00 Urine Urobilinogen 1.0 E.U./dL (0.2 - 1.0) 01/25/17 03:00 Ur Leukocyte Esterase NEGATIVE (NEGATIVE) 01/25/17 03:00 Urine RBC 0-2 /hpf (0-5) 01/25/17 03:00 Urine WBC 10-25 /hpf (0-5) H 01/25/17 03:00 Ur Epithelial Cells OCCASIONAL /lpf (FEW) 01/25/17 03:00 Urine Bacteria MANY /hpf (NONE SEEN) 01/25/17 03:00 Salicylates < 25.0 mg/L (30.0-100.0) L 01/25/17 01:48 Urine Opiates Screen POSITIVE (NEGATIVE) H 01/25/17 03:00 Acetaminophen < 10.0 ug/mL (10.0-30.0) L 01/25/17 01:48 Ur Barbiturates Screen NEGATIVE (NEGATIVE) 01/25/17 03:00 Ur Phencyclidine Scrn NEGATIVE (NEGATIVE) 01/25/17 03:00 Amphetamines Screen POSITIVE (NEGATIVE) H 01/25/17 03:00 U Methamphetamines Scrn POSITIVE (NEGATIVE) H 01/25/17 03:00 U Benzodiazepines Scrn NEGATIVE (NEGATIVE) 01/25/17 03:00 U Cocaine Metab Screen NEGATIVE (NEGATIVE) 01/25/17 03:00 U Cannabinoids Screen NEGATIVE (NEGATIVE) 01/25/17 03:00 Ethyl Alcohol < 10 mg/dL (0-10) 01/25/17 01:48 RPR NONREACTIVE (NONREACTIVE) 01/25/17 01:48 HIV 1&2 Antibody Screen NEGATIVE (NEG) 01/26/17 05:02 - Physical Exam Vitals and I&O: Vital Signs Temp 98.2 F 01/29/17 04:00 Pulse 87 01/29/17 06:52 Resp 12 01/29/17 06:52 BP 145/75 01/29/17 06:00 Pulse Ox 97 01/29/17 06:52 Intake & Output 01/28/17 01/29/17 01/29/17 18:59 06:59 18:59 Intake Total 560.833 500 Output Total 1010 660 Balance -449.167 -160 Intake: Intake, IV Amount 460.833 500 D5-0.45NS 1,000 ml @ 50 110.833 mls/hr IV .Q20H [facility] Rx#: [id number] Vancomycin HCl 0.75 gm In 250.0 250 Sodium Chloride 0.9% 250 ml @ 165 mls/hr IV Q12H [facility] Rx#:[id number] cefTRIAXone 1 gm In 50 Dextrose 5% 50 ml @ 100 mls/hr IV Q24H [facility] Rx#: [id number] metroNIDAZOLE 500mg/NS 100 200 100mL 500 mg In 100 ml @ 100 mls/hr IV Q8HR [facility] Rx #:[id number] Oral 0 Other 100 Output: Gastric Drainage 200 Drainage 60 Left Lower Abdomen 60 Urine 750 600 Other 60 Active Medications: Current Medications Hydromorphone HCl (Dilaudid) 1 mg IVP Q3H PRN PRN Reason: MODERATE PAIN Stop: 03/26/17 17:55 Last Admin: 01/29/17 03:45 Dose: 1 mg Hydromorphone HCl (Dilaudid) 2 mg IVP Q3H PRN PRN Reason: SEVERE PAIN Stop: 03/26/17 17:56 Last Admin: 01/28/17 18:21 Dose: 2 mg Ceftriaxone Sodium 1 gm/ (Dextrose) 50 mls @ 100 mls/hr IV Q24H [facility] Stop: 03/27/17 20:59 Last Infusion: 01/28/17 21:20 Dose: Infused Metronidazole (Flagyl) 500 mg in 100 mls @ 100 mls/hr IV Q8HR [facility] Stop: 03/28/17 04:59 Last Infusion: 01/29/17 06:59 Dose: Infused Vancomycin HCl 0.75 gm/ Sodium (Chloride) 250 mls @ 165 mls/hr IV Q12H [facility] Stop: 03/29/17 11:59 Last Infusion: 01/29/17 01:35 Dose: Infused Dextrose/Sodium Chloride (D5-0.45ns) 1,000 mls @ 50 mls/hr IV .Q20H [facility] Stop: 03/29/17 14:46 Last Infusion: 01/28/17 17:17 Dose: 50 mls/hr Insulin Aspart (Novolog) 0 units SUBQ Q6HR [facility] PRN Reason: Protocol Stop: 03/28/17 08:59 Last Admin: 01/29/17 06:24 Dose: 2 units Lactobacillus Rhamnosus (Culturelle) 1 each PO DAILY [facility] Stop: 03/29/17 08:59 Last Admin: 01/29/17 08:55 Dose: Not Given Meperidine HCl (Demerol) 12.5 mg IVP Q2M PRN PRN Reason: POST-OP PAIN Stop: 03/27/17 19:19 Miscellaneous (Vancomycin Iv Per Pharmacy) 1 ea PRN [facility] Stop: 03/28/17 02:29 Miscellaneous (Probiotic Screen) 1 ea PRN PRN PRN Reason: PROTOCOL Stop: 03/28/17 13:21 Ondansetron HCl (Zofran) 4 mg IV Q6H PRN PRN Reason: Nausea / Vomiting Stop: 03/26/17 16:27 Last Admin: 01/29/17 09:01 Dose: 4 mg - Procedures Procedures: Procedures Procedure Code Date BYPASS STOMACH TO JEJUNUM, OPEN APPROACH [id number] 01/25/17 FUSION OF STOMACH AND BOWEL 11751 01/25/17 REMOVAL OF GALLBLADDER 91407 01/25/17 REPAIR STOMACH, OPEN APPROACH [id number] 01/25/17 RESECTION OF GALLBLADDER, OPEN APPROACH [id number] 01/25/17 RESPIRATORY VENTILATION, LESS THAN 24 CONSECUTIVE HOURS [id number] 01/25/17 STOMACH SURGERY PROCEDURE 87546 01/25/17 VENT MGMT INPAT INIT DAY 72220 01/25/17 Assessment/Plan - Problem List Patient Problems: All Active Problems H/O diabetes mellitus (Acute) Z86.39 H/O drug abuse (Acute) Z87.898 H/O: HTN (hypertension) (Acute) Z86.79 UTI (urinary tract infection) (Acute) h/o dementia (Acute) r/o sepsis (Acute) Nutritional Asmnt/Malnutr-PDOC - Dietary Evaluation Malnutrition Findings (Please click <Entered> for more info): Nutritional Asmnt/Malnutrition Start: 01/26/17 14: 32 Text: Status: Complete Freq: Document 01/26/17 14:32 GSUN (Rec: 01/26/17 14:51 [email or web address] [email or web address]) Nutritional Asmnt/Malnutrition Patient General Information Nutritional Screening Consult Diagnosis UTI, leukocytosis maybe reactive versus sepsis Pertinent Medical Hx/Surgical Hx HTN, DM, drug abuse, dementia Subjective Information 71 year old female, homeless. RD consult for BG >180. Pt was NPO at time of visit for CT abdomen/pelvis scan. Pt was agitated and in pain during visit. Pt refused to answer RD questions, repeatedly asked about bowel prep processes, then yelled at RD to leave. Pertinent Medications Dilaudid, Zofran Pertinent Labs 01/25: A1c 6, glucose 319H Nutritional Hx/Data Height 1.73 m Height (Calculated Centimeters) 172.7 Current Weight (lbs) 69.899 kg Weight (Calculated Kilograms) 69.9 Weight (Calculated Grams) 21590.6 [place] Body Weight 140lb Weight Status Approriate GI Symptoms Cultural/Ethnic/Mandaeism Belief Unknown. Usual diet at home Unknown. Estimated Nutritional Goals BEE in Kcals: Using Current wt Calories/Kcals/Kg CBW 70kg Kcals Calculated 1750-2100kcal (25-30kcal/kg, ? possible sepsis) Protein: Using Current wt Protein Calculated 70g (1g/kg) Fluid: ml 1750-2100ml (1ml/kcal) Nutritional Problem 1. Problem Problem Altered nutrition related laboratory values related to Etiology DM aeb Signs/Symptoms: H&P, glucose 319H on adm Intervention/Recommendation Comments 1. NPO at time of visit. Diet advancement per MD, recommend [id number] to promtoe glycemic control. 2. Provide edu on DM as needed . Expected Outcomes/Goals Expected Outcomes/Goals 1. Po itnake to meet 100% of estimated nutritional needs.
[2017-01-29] MEDS: D5-0.45NS 1,000 ML IV SCH (12:14)
[2017-01-29 15:20] VITALS: BP 111/75
[2017-01-30] MEDS: INSULIN ASPART, RECOMBINANT 100 UNITS/ML SUBQ SCH ×4 (00:11→17:52)
[2017-01-30] MEDS: HYDROmorphone 2 mg/mL 1mL Vial IVP PRN (03:53)
[2017-01-30] MEDS: metroNIDAZOLE 500mg/NS 100mL 500 MG/100 ML BAG IV SCH ×3 (05:00→21:53)
[2017-01-30 05:53] LABS: HEMATOCRIT 31.4 % (35.0-45.0); HEMOGLOBIN 11.1 gm/dL (11.7-16.1); MEAN CELL VOLUME 97.5 fl (81-100); MEAN CORPUSCULAR HEMOGLOBIN 34.5 pg (27.0-31.0); MEAN CORPUSCULAR HGB CONC 35.4 pg (28.0-36.0); MEAN PLATELET VOLUME 7.4 fl; PLATELET COUNT 268 Th/cmm (150-400); RED BLOOD COUNT 3.22 Mil/cmm (3.80-5.20); RED CELL DISTRIBUTION WIDTH 12.1 % (11.5-20.0)
[2017-01-30 05:57] LABS: WHITE BLOOD COUNT 18.1 Th/cmm (4.8-10.8)
[2017-01-30 06:10] LABS: ALKALINE PHOSPHATASE 56 U/L (34-104); ANION GAP 10.9 (7.0-16.0); BILIRUBIN,TOTAL 0.4 mg/dL (0.3-1.0); BUN - UREA NITROGEN 24 mg/dL (7-25); CALCIUM SERUM 8.2 mg/dL (8.6-10.3); CARBON DIOXIDE 29.2 mEq/L (21.0-31.0); CHLORIDE 107 mEq/L (98-107); CREATININE - SERUM 0.5 mg/dL (0.6-1.2); GLUCOSE 156 mg/dL (70-105); POTASSIUM SERUM 3.1 mEq/L (3.5-5.1); SGOT 10 U/L (13-39); SGPT/ALT 10 U/L (7-52); SODIUM SERUM 144 mEq/L (136-145)
--- NOTE | 2017-01-30 08:11 | General Progress Note ---
Subjective - Review of Systems Service Date: 01/30/17 Events since last encounter: patient layin in bed no distress Objective - Results Result Diagrams: 01/30/17 04:43 01/30/17 04:43 Recent Labs: Laboratory Last Values WBC 18.1 Th/cmm (4.8-10.8) H D 01/30/17 04:43 RBC 3.22 Mil/cmm (3.80-5.20) L 01/30/17 04:43 Hgb 11.1 gm/dL (11.7-16.1) L 01/30/17 04:43 Hct 31.4 % (35.0-45.0) L 01/30/17 04:43 MCV 97.5 fl (81-100) 01/30/17 04:43 MCH 34.5 pg (27.0-31.0) H 01/30/17 04:43 MCHC Differential 35.4 pg (28.0-36.0) 01/30/17 04:43 RDW 12.1 % (11.5-20.0) 01/30/17 04:43 Plt Count 268 Th/cmm (150-400) 01/30/17 04:43 MPV 7.4 fl 01/30/17 04:43 Neutrophils % 75.1 % (40.0-80.0) 01/25/17 01:48 Band Neutrophils % 5 % (0-10) 01/29/17 04:37 Lymphocytes % 13.3 % (20.0-50.0) L 01/25/17 01:48 Monocytes % 10.0 % (2.0-10.0) 01/25/17 01:48 Eosinophils % 0.8 % (0.0-5.0) 01/25/17 01:48 Basophils % 0.8 % (0.0-2.0) 01/25/17 01:48 Neutrophils (Manual) 74 % (40-80) 01/29/17 04:37 Lymphocytes 8 % (20-50) L 01/29/17 04:37 Monocytes 13 % (2-10) H 01/29/17 04:37 Platelet Estimate ADEQUATE (NORMAL) 01/29/17 04:37 Platelet Morphology NORMAL (NORMAL) 01/29/17 04:37 RBC Morph Micro Appear NORMAL (NORMAL) 01/29/17 04:37 PT 9.9 SECONDS (9.5-11.5) 01/25/17 01:48 INR 0.95 (0.5-1.4) 01/25/17 01:48 Specimen Source Arterial 01/27/17 09:13 Sample Site Right Radial 01/27/17 09:13 pH 7.36 (7.35-7.45) 01/27/17 09:13 pCO2 41.0 mmHg (35.0-45.0) 01/27/17 09:13 pO2 100.0 mmHg (80.0-100.0) 01/27/17 09:13 HCO3 23.2 mEq/L (20.0-26.0) 01/27/17 09:13 Base Excess -2.2 mEq/L (-3.0-3.0) 01/27/17 09:13 O2 Saturation 97.0 % (92.0-100.0) 01/27/17 09:13 Luther Test PASS 01/27/17 09:13 Vent Rate 13 01/27/17 09:13 Inspired O2 30 01/27/17 09:13 Tidal Volume 500 01/27/17 09:13 PEEP 5 01/27/17 09:13 Pressure (ins/psv/peep) N/A 01/26/17 21:00 Critical Value PW 01/27/17 09:13 Sodium 144 mEq/L (136-145) 01/30/17 04:43 Potassium 3.1 mEq/L (3.5-5.1) L 01/30/17 04:43 Chloride 107 mEq/L (98-107) 01/30/17 04:43 Carbon Dioxide 29.2 mEq/L (21.0-31.0) 01/30/17 04:43 Anion Gap 10.9 (7.0-16.0) 01/30/17 04:43 BUN 24 mg/dL (7-25) 01/30/17 04:43 Creatinine 0.5 mg/dL (0.6-1.2) L 01/30/17 04:43 Est GFR ( Amer) > 60.0 ml/min (>90) 01/30/17 04:43 Est GFR (Non-Af Amer) > 60.0 ml/min 01/30/17 04:43 BUN/Creatinine Ratio 48.0 01/30/17 04:43 Glucose 156 mg/dL (70-105) H 01/30/17 04:43 POC Glucose 171 MG/DL (70 - 105) H 01/30/17 06:12 Hemoglobin A1c % 6.0 % (4.0-6.0) 01/25/17 01:48 Whole Bld Lactic Acid 1.60 mmol/L (0.60-1.99) 01/25/17 02:12 Calcium 8.2 mg/dL (8.6-10.3) L 01/30/17 04:43 Total Bilirubin 0.4 mg/dL (0.3-1.0) 01/30/17 04:43 AST 10 U/L (13-39) L 01/30/17 04:43 ALT 10 U/L (7-52) 01/30/17 04:43 Alkaline Phosphatase 56 U/L (34-104) 01/30/17 04:43 Troponin I < 0.01 ng/mL (0.01-0.05) L 01/25/17 01:48 Total Protein 4.8 gm/dL (6.0-8.3) L 01/30/17 04:43 Albumin 2.4 gm/dL (3.7-5.3) L 01/30/17 04:43 Globulin 2.4 gm/dL 01/30/17 04:43 Albumin/Globulin Ratio 1.0 (1.0-1.8) 01/30/17 04:43 Triglycerides 98 mg/dL (<150) 01/25/17 01:48 Cholesterol 146 mg/dL (<200) 01/25/17 01:48 LDL Cholesterol Direct 37 mg/dL (75-193) L 01/25/17 01:48 HDL Cholesterol 83 mg/dL (23-92) 01/25/17 01:48 TSH 1.45 uIU/ml (0.34-5.60) 01/25/17 01:48 Urine Source CLEAN C 01/25/17 03:00 Urine Color YELLOW 01/25/17 03:00 Urine Clarity CLEAR (CLEAR) 01/25/17 03:00 Urine pH 5.5 01/25/17 03:00 Ur Specific [place] 1.010 (1.005-1.030) 01/25/17 03:00 Urine Protein NEGATIVE mg/dL (NEGATIVE) 01/25/17 03:00 Urine Glucose (UA) 500 mg/dL (NEGATIVE) H 01/25/17 03:00 Urine Ketones NEGATIVE mg/dL (NEGATIVE) 01/25/17 03:00 Urine Blood NEGATIVE (NEGATIVE) 01/25/17 03:00 Urine Nitrate POSITIVE (NEGATIVE) H 01/25/17 03:00 Urine Bilirubin NEGATIVE (NEGATIVE) 01/25/17 03:00 Urine Urobilinogen 1.0 E.U./dL (0.2 - 1.0) 01/25/17 03:00 Ur Leukocyte Esterase NEGATIVE (NEGATIVE) 01/25/17 03:00 Urine RBC 0-2 /hpf (0-5) 01/25/17 03:00 Urine WBC 10-25 /hpf (0-5) H 01/25/17 03:00 Ur Epithelial Cells OCCASIONAL /lpf (FEW) 01/25/17 03:00 Urine Bacteria MANY /hpf (NONE SEEN) 01/25/17 03:00 Vancomycin Trough 6.1 ug/mL (10-20) L 01/29/17 23:03 Salicylates < 25.0 mg/L (30.0-100.0) L 01/25/17 01:48 Urine Opiates Screen POSITIVE (NEGATIVE) H 01/25/17 03:00 Acetaminophen < 10.0 ug/mL (10.0-30.0) L 01/25/17 01:48 Ur Barbiturates Screen NEGATIVE (NEGATIVE) 01/25/17 03:00 Ur Phencyclidine Scrn NEGATIVE (NEGATIVE) 01/25/17 03:00 Amphetamines Screen POSITIVE (NEGATIVE) H 01/25/17 03:00 U Methamphetamines Scrn POSITIVE (NEGATIVE) H 01/25/17 03:00 U Benzodiazepines Scrn NEGATIVE (NEGATIVE) 01/25/17 03:00 U Cocaine Metab Screen NEGATIVE (NEGATIVE) 01/25/17 03:00 U Cannabinoids Screen NEGATIVE (NEGATIVE) 01/25/17 03:00 Ethyl Alcohol < 10 mg/dL (0-10) 01/25/17 01:48 RPR NONREACTIVE (NONREACTIVE) 01/25/17 01:48 HIV 1&2 Antibody Screen NEGATIVE (NEG) 01/26/17 05:02 - Physical Exam Vitals and I&O: Vital Signs Temp 97.8 F 01/30/17 04:00 Pulse 96 01/30/17 07:17 Resp 12 01/30/17 07:17 BP 150/91 01/30/17 04:00 Pulse Ox 98 01/30/17 07:17 Intake & Output 01/29/17 01/30/17 01/30/17 18:59 06:59 18:59 Intake Total 1244.167 600 Output Total 800 780 Balance 444.167 -180 Intake: Intake, IV Amount 1239.167 500 D5-0.45NS 1,000 ml @ 50 889.167 mls/hr IV .Q20H [facility] Rx#: [id number] Vancomycin HCl 0.75 gm In 250 250 Sodium Chloride 0.9% 250 ml @ 165 mls/hr IV Q12H [facility] Rx#:[id number] cefTRIAXone 1 gm In 50 Dextrose 5% 50 ml @ 100 mls/hr IV Q24H [facility] Rx#: [id number] metroNIDAZOLE 500mg/NS 100 200 100mL 500 mg In 100 ml @ 100 mls/hr IV Q8HR [facility] Rx #:[id number] Oral 5 Other 100 Output: Gastric Drainage 300 Drainage 50 80 Left Lower Abdomen 50 80 Urine 450 700 Stool 0 Active Medications: Current Medications Hydromorphone HCl (Dilaudid) 1 mg IVP Q3H PRN PRN Reason: MODERATE PAIN Stop: 03/26/17 17:55 Last Admin: 01/29/17 20:17 Dose: 1 mg Hydromorphone HCl (Dilaudid) 2 mg IVP Q3H PRN PRN Reason: SEVERE PAIN Stop: 03/26/17 17:56 Last Admin: 01/30/17 03:53 Dose: 2 mg Ceftriaxone Sodium 1 gm/ (Dextrose) 50 mls @ 100 mls/hr IV Q24H [facility] Stop: 03/27/17 20:59 Last Infusion: 01/29/17 21:30 Dose: Infused Metronidazole (Flagyl) 500 mg in 100 mls @ 100 mls/hr IV Q8HR [facility] Stop: 03/28/17 04:59 Last Infusion: 01/30/17 06:00 Dose: Infused Vancomycin HCl 0.75 gm/ Sodium (Chloride) 250 mls @ 165 mls/hr IV Q12H [facility] Stop: 03/29/17 11:59 Last Infusion: 01/30/17 01:49 Dose: Infused Dextrose/Sodium Chloride (D5-0.45ns) 1,000 mls @ 50 mls/hr IV .Q20H [facility] Stop: 03/29/17 14:46 Last Admin: 01/29/17 12:14 Dose: 50 mls/hr Insulin Aspart (Novolog) 0 units SUBQ Q6HR [facility] PRN Reason: Protocol Stop: 03/28/17 08:59 Last Admin: 01/30/17 06:15 Dose: 2 units Lactobacillus Rhamnosus (Culturelle) 1 each PO DAILY [facility] Stop: 03/29/17 08:59 Last Admin: 01/29/17 08:55 Dose: Not Given Meperidine HCl (Demerol) 12.5 mg IVP Q2M PRN PRN Reason: POST-OP PAIN Stop: 03/27/17 19:19 Miscellaneous (Vancomycin Iv Per Pharmacy) 1 ea [facility] PRN [facility] Stop: 03/28/17 02:29 Miscellaneous (Probiotic Screen) 1 [facility] PRN PRN PRN Reason: PROTOCOL Stop: 03/28/17 13:21 Ondansetron HCl (Zofran) 4 mg IV Q6H PRN PRN Reason: Nausea / Vomiting Stop: 03/26/17 16:27 Last Admin: 01/29/17 09:01 Dose: 4 mg General: No acute distress HEENT: Atraumatic Neck: Supple Cardiovascular: Regular rate Lungs: Clear to auscultation - Procedures Procedures: Procedures Procedure Code Date BYPASS STOMACH TO JEJUNUM, OPEN APPROACH [id number] 01/25/17 FUSION OF STOMACH AND BOWEL 56192 01/25/17 REMOVAL OF GALLBLADDER 90340 01/25/17 REPAIR STOMACH, OPEN APPROACH [id number] 01/25/17 RESECTION OF GALLBLADDER, OPEN APPROACH [id number] 01/25/17 RESPIRATORY VENTILATION, LESS THAN 24 CONSECUTIVE HOURS [id number] 01/25/17 STOMACH SURGERY PROCEDURE 53776 01/25/17 VENT MGMT INPAT INIT DAY 41913 01/25/17 Assessment/Plan - Problem List Patient Problems: All Active Problems H/O diabetes mellitus (Acute) Z86.39 H/O drug abuse (Acute) Z87.898 H/O: HTN (hypertension) (Acute) Z86.79 UTI (urinary tract infection) (Acute) h/o dementia (Acute) r/o sepsis (Acute) s/p surgery (Acute) - Plan Plan: monitor vitals/diet labs cpm Nutritional Asmnt/Malnutr-PDOC - Dietary Evaluation Malnutrition Findings (Please click <Entered> for more info): Nutritional Asmnt/Malnutrition Start: 01/26/17 14: 32 Text: Status: Complete Freq: Document 01/26/17 14:32 GSUN (Rec: 01/26/17 14:51 [email or web address] [email or web address]) Nutritional Asmnt/Malnutrition Patient General Information Nutritional Screening Consult Diagnosis UTI, leukocytosis maybe reactive versus sepsis Pertinent Medical Hx/Surgical Hx HTN, DM, drug abuse, dementia Subjective Information 71 year old female, homeless. RD consult for BG >180. Pt was NPO at time of visit for CT abdomen/pelvis scan. Pt was agitated and in pain during visit. Pt refused to answer RD questions, repeatedly asked about bowel prep processes, then yelled at RD to leave. Pertinent Medications Dilaudid, Zofran Pertinent Labs 01/25: A1c 6, glucose 319H Nutritional Hx/Data Height 1.73 m Height (Calculated Centimeters) 172.7 Current Weight (lbs) 69.899 kg Weight (Calculated Kilograms) 69.9 Weight (Calculated Grams) 99999.6 [place] Body Weight 140lb Weight Status Approriate GI Symptoms Cultural/Ethnic/Scientology Belief Unknown. Usual diet at home Unknown. Estimated Nutritional Goals BEE in Kcals: Using Current wt Calories/Kcals/Kg CBW 70kg Kcals Calculated 1750-2100kcal (25-30kcal/kg, ? possible sepsis) Protein: Using Current wt Protein Calculated 70g (1g/kg) Fluid: ml 1750-2100ml (1ml/kcal) Nutritional Problem 1. Problem Problem Altered nutrition related laboratory values related to Etiology DM aeb Signs/Symptoms: H&P, glucose 319H on adm Intervention/Recommendation Comments 1. NPO at time of visit. Diet advancement per MD, recommend [id number] to promtoe glycemic control. 2. Provide edu on DM as needed . Expected Outcomes/Goals Expected Outcomes/Goals 1. Po itnake to meet 100% of estimated nutritional needs.
[2017-01-30] MEDS: Lactobacillus Rhamnosus 10 Billion CFU Capsule PO SCH (09:04)
[2017-01-30 09:26] LABS: BAND NEUTROPHILE 3 % (0-10); NEUTROPHILS 80 % (40-80); PLATELET ESTIMATE ADEQUATE (NORMAL); PLATELET MORPHOLOGY NORMAL (NORMAL); TOTAL CELLS COUNTED 100
[2017-01-30] MEDS ORDERED: Amino Acids 3% / Electrolytes 1,000 ML IV SCH (17:00)
[2017-01-30] MEDS: KCL 20mEq/100mL Premix 20 MEQ/100 ML PIGGYBACK IV SCH (21:29)
--- NOTE | 2017-01-30 23:36 | Infectious Disease Prog Note ---
Infectious Disease Subjective - Review of Systems Service Date: 01/30/17 Subjective: Doing well. Infectious Disease Objective - Results Result Diagrams: 01/30/17 04:43 01/30/17 04:43 Recent Labs: Laboratory Last Values WBC 18.1 Th/cmm (4.8-10.8) H D 01/30/17 04:43 RBC 3.22 Mil/cmm (3.80-5.20) L 01/30/17 04:43 Hgb 11.1 gm/dL (11.7-16.1) L 01/30/17 04:43 Hct 31.4 % (35.0-45.0) L 01/30/17 04:43 MCV 97.5 fl (81-100) 01/30/17 04:43 MCH 34.5 pg (27.0-31.0) H 01/30/17 04:43 MCHC Differential 35.4 pg (28.0-36.0) 01/30/17 04:43 RDW 12.1 % (11.5-20.0) 01/30/17 04:43 Plt Count 268 Th/cmm (150-400) 01/30/17 04:43 MPV 7.4 fl 01/30/17 04:43 Neutrophils % 75.1 % (40.0-80.0) 01/25/17 01:48 Band Neutrophils % 3 % (0-10) 01/30/17 04:43 Lymphocytes % 13.3 % (20.0-50.0) L 01/25/17 01:48 Monocytes % 10.0 % (2.0-10.0) 01/25/17 01:48 Eosinophils % 0.8 % (0.0-5.0) 01/25/17 01:48 Basophils % 0.8 % (0.0-2.0) 01/25/17 01:48 Neutrophils (Manual) 80 % (40-80) 01/30/17 04:43 Lymphocytes 10 % (20-50) L 01/30/17 04:43 Monocytes 7 % (2-10) 01/30/17 04:43 Platelet Estimate ADEQUATE (NORMAL) 01/30/17 04:43 Platelet Morphology NORMAL (NORMAL) 01/30/17 04:43 RBC Morph Micro Appear NORMAL (NORMAL) 01/30/17 04:43 PT 9.9 SECONDS (9.5-11.5) 01/25/17 01:48 INR 0.95 (0.5-1.4) 01/25/17 01:48 Specimen Source Arterial 01/27/17 09:13 Sample Site Right Radial 01/27/17 09:13 pH 7.36 (7.35-7.45) 01/27/17 09:13 pCO2 41.0 mmHg (35.0-45.0) 01/27/17 09:13 pO2 100.0 mmHg (80.0-100.0) 01/27/17 09:13 HCO3 23.2 mEq/L (20.0-26.0) 01/27/17 09:13 Base Excess -2.2 mEq/L (-3.0-3.0) 01/27/17 09:13 O2 Saturation 97.0 % (92.0-100.0) 01/27/17 09:13 Luther Test PASS 01/27/17 09:13 Vent Rate 13 01/27/17 09:13 Inspired O2 30 01/27/17 09:13 Tidal Volume 500 01/27/17 09:13 PEEP 5 01/27/17 09:13 Pressure (ins/psv/peep) N/A 01/26/17 21:00 Critical Value PW 01/27/17 09:13 Sodium 144 mEq/L (136-145) 01/30/17 04:43 Potassium 3.1 mEq/L (3.5-5.1) L 01/30/17 04:43 Chloride 107 mEq/L (98-107) 01/30/17 04:43 Carbon Dioxide 29.2 mEq/L (21.0-31.0) 01/30/17 04:43 Anion Gap 10.9 (7.0-16.0) 01/30/17 04:43 BUN 24 mg/dL (7-25) 01/30/17 04:43 Creatinine 0.5 mg/dL (0.6-1.2) L 01/30/17 04:43 Est GFR ( Amer) > 60.0 ml/min (>90) 01/30/17 04:43 Est GFR (Non-Af Amer) > 60.0 ml/min 01/30/17 04:43 BUN/Creatinine Ratio 48.0 01/30/17 04:43 Glucose 156 mg/dL (70-105) H 01/30/17 04:43 POC Glucose 191 MG/DL (70 - 105) H 01/30/17 17:50 Hemoglobin A1c % 6.0 % (4.0-6.0) 01/25/17 01:48 Whole Bld Lactic Acid 1.60 mmol/L (0.60-1.99) 01/25/17 02:12 Calcium 8.2 mg/dL (8.6-10.3) L 01/30/17 04:43 Total Bilirubin 0.4 mg/dL (0.3-1.0) 01/30/17 04:43 AST 10 U/L (13-39) L 01/30/17 04:43 ALT 10 U/L (7-52) 01/30/17 04:43 Alkaline Phosphatase 56 U/L (34-104) 01/30/17 04:43 Troponin I < 0.01 ng/mL (0.01-0.05) L 01/25/17 01:48 Total Protein 4.8 gm/dL (6.0-8.3) L 01/30/17 04:43 Albumin 2.4 gm/dL (3.7-5.3) L 01/30/17 04:43 Globulin 2.4 gm/dL 01/30/17 04:43 Albumin/Globulin Ratio 1.0 (1.0-1.8) 01/30/17 04:43 Triglycerides 98 mg/dL (<150) 01/25/17 01:48 Cholesterol 146 mg/dL (<200) 01/25/17 01:48 LDL Cholesterol Direct 37 mg/dL (75-193) L 01/25/17 01:48 HDL Cholesterol 83 mg/dL (23-92) 01/25/17 01:48 TSH 1.45 uIU/ml (0.34-5.60) 01/25/17 01:48 Urine Source CLEAN C 01/25/17 03:00 Urine Color YELLOW 01/25/17 03:00 Urine Clarity CLEAR (CLEAR) 01/25/17 03:00 Urine pH 5.5 01/25/17 03:00 Ur Specific [place] 1.010 (1.005-1.030) 01/25/17 03:00 Urine Protein NEGATIVE mg/dL (NEGATIVE) 01/25/17 03:00 Urine Glucose (UA) 500 mg/dL (NEGATIVE) H 01/25/17 03:00 Urine Ketones NEGATIVE mg/dL (NEGATIVE) 01/25/17 03:00 Urine Blood NEGATIVE (NEGATIVE) 01/25/17 03:00 Urine Nitrate POSITIVE (NEGATIVE) H 01/25/17 03:00 Urine Bilirubin NEGATIVE (NEGATIVE) 01/25/17 03:00 Urine Urobilinogen 1.0 E.U./dL (0.2 - 1.0) 01/25/17 03:00 Ur Leukocyte Esterase NEGATIVE (NEGATIVE) 01/25/17 03:00 Urine RBC 0-2 /hpf (0-5) 01/25/17 03:00 Urine WBC 10-25 /hpf (0-5) H 01/25/17 03:00 Ur Epithelial Cells OCCASIONAL /lpf (FEW) 01/25/17 03:00 Urine Bacteria MANY /hpf (NONE SEEN) 01/25/17 03:00 Vancomycin Trough 6.1 ug/mL (10-20) L 01/29/17 23:03 Salicylates < 25.0 mg/L (30.0-100.0) L 01/25/17 01:48 Urine Opiates Screen POSITIVE (NEGATIVE) H 01/25/17 03:00 Acetaminophen < 10.0 ug/mL (10.0-30.0) L 01/25/17 01:48 Ur Barbiturates Screen NEGATIVE (NEGATIVE) 01/25/17 03:00 Ur Phencyclidine Scrn NEGATIVE (NEGATIVE) 01/25/17 03:00 Amphetamines Screen POSITIVE (NEGATIVE) H 01/25/17 03:00 U Methamphetamines Scrn POSITIVE (NEGATIVE) H 01/25/17 03:00 U Benzodiazepines Scrn NEGATIVE (NEGATIVE) 01/25/17 03:00 U Cocaine Metab Screen NEGATIVE (NEGATIVE) 01/25/17 03:00 U Cannabinoids Screen NEGATIVE (NEGATIVE) 01/25/17 03:00 Ethyl Alcohol < 10 mg/dL (0-10) 01/25/17 01:48 RPR NONREACTIVE (NONREACTIVE) 01/25/17 01:48 HIV 1&2 Antibody Screen NEGATIVE (NEG) 01/26/17 05:02 - Physical Exam Vitals and I&O: Vital Signs Temp 98.9 F 01/30/17 20:00 Pulse 96 01/30/17 20:00 Resp 18 01/30/17 20:00 BP 151/87 01/30/17 20:00 Pulse Ox 96 01/30/17 20:00 Intake & Output 01/30/17 01/30/17 01/31/17 06:59 18:59 06:59 Intake Total 600 290 Output Total 780 1390 Balance -180 -1100 Intake: Intake, IV Amount 500 100 Vancomycin HCl 0.75 gm In 250 Sodium Chloride 0.9% 250 ml @ 165 mls/hr IV Q12H [facility] Rx#:[id number] cefTRIAXone 1 gm In 50 Dextrose 5% 50 ml @ 100 mls/hr IV Q24H [facility] Rx#: [id number] metroNIDAZOLE 500mg/NS 200 100 100mL 500 mg In 100 ml @ 100 mls/hr IV Q8HR [facility] Rx #:[id number] Oral 40 TPN/PPN 150 Other 100 Output: Gastric Drainage 700 Drainage 80 40 Left Lower Abdomen 80 40 Urine 700 650 Stool 0 Other: # Bowel Movements 1 Active Medications: Current Medications Clonidine HCl (Catapres) 0.1 mg PO Q4H PRN PRN Reason: sbp >160 and diastolic >100 Stop: 03/31/17 16:11 Hydromorphone HCl (Dilaudid) 1 mg IVP Q3H PRN PRN Reason: MODERATE PAIN Stop: 03/26/17 17:55 Last Admin: 01/29/17 20:17 Dose: 1 mg Hydromorphone HCl (Dilaudid) 2 mg IVP Q3H PRN PRN Reason: SEVERE PAIN Stop: 03/26/17 17:56 Last Admin: 01/30/17 03:53 Dose: 2 mg Ceftriaxone Sodium 1 gm/ (Dextrose) 50 mls @ 100 mls/hr IV Q24H [facility] Stop: 03/27/17 20:59 Last Admin: 01/30/17 21:04 Dose: 100 mls/hr Metronidazole (Flagyl) 500 mg in 100 mls @ 100 mls/hr IV Q8HR [facility] Stop: 03/28/17 04:59 Last Admin: 01/30/17 21:53 Dose: 100 mls/hr Dextrose/Sodium Chloride (D5-0.45ns) 1,000 mls @ 50 mls/hr IV .Q20H [facility] Stop: 03/29/17 14:46 Last Admin: 01/29/17 12:14 Dose: 50 mls/hr Vancomycin HCl 1 gm/ Sodium (Chloride) 250 mls @ 165 mls/hr IV Q12H [facility] Stop: 04/01/17 00:00 Amino Acids/Electrolytes (Procalamine) 1,000 mls @ 50 mls/hr IV .Q20H [facility] Stop: 03/31/17 16:59 Last Admin: 01/30/17 16:54 Dose: 50 mls/hr Potassium Chloride (Potassium Chloride) 20 meq in 100 mls @ 50 mls/hr IV Q2H [facility] Stop: 01/31/17 00:13 Last Admin: 01/30/17 21:29 Dose: 50 mls/hr Insulin Aspart (Novolog) 0 units SUBQ Q6HR [facility] PRN Reason: Protocol Stop: 03/28/17 08:59 Last Admin: 01/30/17 17:52 Dose: Not Given Lactobacillus Rhamnosus (Culturelle) 1 each PO DAILY [facility] Stop: 03/29/17 08:59 Last Admin: 01/30/17 09:04 Dose: Not Given Meperidine HCl (Demerol) 12.5 mg IVP Q2M PRN PRN Reason: POST-OP PAIN Stop: 03/27/17 19:19 Miscellaneous (Vancomycin Iv Per Pharmacy) 1 ea PRN [facility] Stop: 03/28/17 02:29 Miscellaneous (Probiotic Screen) 1 [facility] PRN PRN PRN Reason: PROTOCOL Stop: 03/28/17 13:21 Miscellaneous (Tpn Per Pharmacy) 1 [facility] PRN PRN PRN Reason: PROTOCOL Stop: 03/31/17 16:11 Ondansetron HCl (Zofran) 4 mg IV Q6H PRN PRN Reason: Nausea / Vomiting Stop: 03/26/17 16:27 Last Admin: 01/30/17 16:25 Dose: 4 mg General: no acute distress, well developed, well nourished HEENT: atraumatic, normocephalic, PERRLA, EOMI Neck: supple, no thyromegaly, no lymphadenopathy Cardiovascular: S1S2, regular Lungs: clear to auscultation bilaterally, clear to percussion Abdomen: soft, no tender, no distended Extremities: no cyanosis, no clubbing, no edema Neurological: awake, alert, oriented, CN 2-12 intact Skin: intact - Procedures Procedures: Procedures Procedure Code Date BYPASS STOMACH TO JEJUNUM, OPEN APPROACH [id number] 01/25/17 FUSION OF STOMACH AND BOWEL 29668 01/25/17 REMOVAL OF GALLBLADDER 33812 01/25/17 REPAIR STOMACH, OPEN APPROACH [id number] 01/25/17 RESECTION OF GALLBLADDER, OPEN APPROACH [id number] 01/25/17 RESPIRATORY VENTILATION, LESS THAN 24 CONSECUTIVE HOURS [id number] 01/25/17 STOMACH SURGERY PROCEDURE 79004 01/25/17 VENT MGMT INPAT INIT DAY 43428 01/25/17 Infectious Disease Assmt/Plan - Problem List Patient Problems: All Active Problems H/O diabetes mellitus (Acute) Z86.39 H/O drug abuse (Acute) Z87.898 H/O: HTN (hypertension) (Acute) Z86.79 UTI (urinary tract infection) (Acute) h/o dementia (Acute) r/o sepsis (Acute) s/p surgery (Acute) - Assessment Assessment: 1. Peritonitis. 2. Gastric bypass perforation. 3. S/p exploratory lap and repair anastomotic leak/ perforation. 4. UTI - Plan Plan: Continue Ceftriaxone and flagyl. follow up the culture report and decide final antibiotic therapy. Nutritional Asmnt/Malnutr-PDOC - Dietary Evaluation Malnutrition Findings (Please click <Entered> for more info): Nutritional Asmnt/Malnutrition Start: 01/26/17 14: 32 Text: Status: Complete Freq: Document 01/26/17 14:32 GSUN (Rec: 01/26/17 14:51 GSUN [id number]) Nutritional Asmnt/Malnutrition Patient General Information Nutritional Screening Consult Diagnosis UTI, leukocytosis maybe reactive versus sepsis Pertinent Medical Hx/Surgical Hx HTN, DM, drug abuse, dementia Subjective Information 71 year old female, homeless. RD consult for BG >180. Pt was NPO at time of visit for CT abdomen/pelvis scan. Pt was agitated and in pain during visit. Pt refused to answer RD questions, repeatedly asked about bowel prep processes, then yelled at RD to leave. Pertinent Medications Dilaudid, Zofran Pertinent Labs 01/25: A1c 6, glucose 319H Nutritional Hx/Data Height 1.73 m Height (Calculated Centimeters) 172.7 Current Weight (lbs) 69.899 kg Weight (Calculated Kilograms) 69.9 Weight (Calculated Grams) 75791.6 In[place] Body Weight 140lb Weight Status Approriate GI Symptoms Cultural/Ethnic/Muslim Belief Unknown. Usual diet at home Unknown. Estimated Nutritional Goals BEE in Kcals: Using Current wt Calories/Kcals/Kg CBW 70kg Kcals Calculated 1750-2100kcal (25-30kcal/kg, ? possible sepsis) Protein: Using Current wt Protein Calculated 70g (1g/kg) Fluid: ml 1750-2100ml (1ml/kcal) Nutritional Problem 1. Problem Problem Altered nutrition related laboratory values related to Etiology DM aeb Signs/Symptoms: H&P, glucose 319H on adm Intervention/Recommendation Comments 1. NPO at time of visit. Diet advancement per MD, recommend [id number] to promtoe glycemic control. 2. Provide edu on DM as needed . Expected Outcomes/Goals Expected Outcomes/Goals 1. Po [place]ake to meet 100% of estimated nutritional needs.
[2017-01-31] MEDS: KCL 20mEq/100mL Premix 20 MEQ/100 ML PIGGYBACK IV SCH ×4 (00:20→16:02)
[2017-01-31] MEDS: INSULIN ASPART, RECOMBINANT 100 UNITS/ML SUBQ SCH ×5 (00:40→17:14)
[2017-01-31] MEDS: metroNIDAZOLE 500mg/NS 100mL 500 MG/100 ML BAG IV SCH ×3 (05:43→21:39)
[2017-01-31 06:29] LABS: HEMOGLOBIN 11.3 gm/dL (11.7-16.1); MEAN PLATELET VOLUME 7.6 fl; RED BLOOD COUNT 3.35 Mil/cmm (3.80-5.20)
[2017-01-31 07:03] LABS: HEMATOCRIT 32.8 % (35.0-45.0); MEAN CELL VOLUME 97.9 fl (81-100); MEAN CORPUSCULAR HEMOGLOBIN 33.7 pg (27.0-31.0); MEAN CORPUSCULAR HGB CONC 34.5 pg (28.0-36.0); PLATELET COUNT 296 Th/cmm (150-400); RED CELL DISTRIBUTION WIDTH 12.3 % (11.5-20.0)
[2017-01-31 07:37] LABS: WHITE BLOOD COUNT 19.2 Th/cmm (4.8-10.8)
--- NOTE | 2017-01-31 08:21 | Diagnostic Imaging Report ---
KUB abdominal film HISTORY: Postoperative, nausea/vomiting The exam demonstrates residual radiopaque contrast within nondilated ascending colon. Bowel gas pattern otherwise nonspecific. No obvious free intraperitoneal air seen. Catheters project over the left lower abdomen. IMPRESSION: 1. Residual contrast within nondilated ascending colon. No other definite acute radiographic abnormalities.
[2017-01-31 08:58] LABS: BAND NEUTROPHILE 1 % (0-10); NEUTROPHILS 77 % (40-80); TOTAL CELLS COUNTED 100
[2017-01-31 08:59] LABS: MYELOCYTE 2 %; PLATELET ESTIMATE ADEQUATE (NORMAL); PLATELET MORPHOLOGY NORMAL (NORMAL)
[2017-01-31 09:36] LABS: ALB/GLOB RATIO 1.1 (1.0-1.8); ALKALINE PHOSPHATASE 54 U/L (34-104); BILIRUBIN,TOTAL 0.4 mg/dL (0.3-1.0); BUN - UREA NITROGEN 27 mg/dL (7-25); CALCIUM SERUM 8.2 mg/dL (8.6-10.3); CARBON DIOXIDE 31.8 mEq/L (21.0-31.0); CHLORIDE 107 mEq/L (98-107); CREATININE - SERUM 0.6 mg/dL (0.6-1.2); GLUCOSE 236 mg/dL (70-105); SGOT 10 U/L (13-39); SGPT/ALT 10 U/L (7-52); SODIUM SERUM 141 mEq/L (136-145)
[2017-01-31 09:40] LABS: POTASSIUM SERUM 2.8 mEq/L (3.5-5.1)
[2017-01-31] MEDS ORDERED: INTRALIPIDS IV SCH (10:15)
[2017-01-31] MEDS ORDERED: AMINO ACIDS IV SCH (10:15)
[2017-01-31] MEDS ORDERED: DEXT IV SCH (10:15)
[2017-01-31] MEDS: Lactobacillus Rhamnosus 10 Billion CFU Capsule PO SCH (10:16)
--- NOTE | 2017-01-31 14:45 | General Progress Note ---
Subjective - Review of Systems Events since last encounter: 01/31/17 leukocytosis, low K had vomiting abdomen is soft, minimal tenderness SANCHEZ drain is serous start Protonix PT Objective - Results Result Diagrams: 01/31/17 05:40 01/31/17 09:05 Recent Labs: Laboratory Last Values WBC 19.2 Th/cmm (4.8-10.8) H 01/31/17 05:40 RBC 3.35 Mil/cmm (3.80-5.20) L 01/31/17 05:40 Hgb 11.3 gm/dL (11.7-16.1) L 01/31/17 05:40 Hct 32.8 % (35.0-45.0) L 01/31/17 05:40 MCV 97.9 fl (81-100) 01/31/17 05:40 MCH 33.7 pg (27.0-31.0) H 01/31/17 05:40 MCHC Differential 34.5 pg (28.0-36.0) 01/31/17 05:40 RDW 12.3 % (11.5-20.0) 01/31/17 05:40 Plt Count 296 Th/cmm (150-400) 01/31/17 05:40 MPV 7.6 fl 01/31/17 05:40 Neutrophils % 75.1 % (40.0-80.0) 01/25/17 01:48 Band Neutrophils % 1 % (0-10) 01/31/17 05:40 Lymphocytes % 13.3 % (20.0-50.0) L 01/25/17 01:48 Monocytes % 10.0 % (2.0-10.0) 01/25/17 01:48 Eosinophils % 0.8 % (0.0-5.0) 01/25/17 01:48 Basophils % 0.8 % (0.0-2.0) 01/25/17 01:48 Neutrophils (Manual) 77 % (40-80) 01/31/17 05:40 Lymphocytes 8 % (20-50) L 01/31/17 05:40 Monocytes 12 % (2-10) H 01/31/17 05:40 Myelocytes 2 % 01/31/17 05:40 Platelet Estimate ADEQUATE (NORMAL) 01/31/17 05:40 Platelet Morphology NORMAL (NORMAL) 01/31/17 05:40 RBC Morph Micro Appear NORMAL (NORMAL) 01/31/17 05:40 PT 9.9 SECONDS (9.5-11.5) 01/25/17 01:48 INR 0.95 (0.5-1.4) 01/25/17 01:48 Specimen Source Arterial 01/27/17 09:13 Sample Site Right Radial 01/27/17 09:13 pH 7.36 (7.35-7.45) 01/27/17 09:13 pCO2 41.0 mmHg (35.0-45.0) 01/27/17 09:13 pO2 100.0 mmHg (80.0-100.0) 01/27/17 09:13 HCO3 23.2 mEq/L (20.0-26.0) 01/27/17 09:13 Base Excess -2.2 mEq/L (-3.0-3.0) 01/27/17 09:13 O2 Saturation 97.0 % (92.0-100.0) 01/27/17 09:13 Luther Test PASS 01/27/17 09:13 Vent Rate 13 01/27/17 09:13 Inspired O2 30 01/27/17 09:13 Tidal Volume 500 01/27/17 09:13 PEEP 5 01/27/17 09:13 Pressure (ins/psv/peep) N/A 01/26/17 21:00 Critical Value PW 01/27/17 09:13 Sodium 141 mEq/L (136-145) 01/31/17 09:05 Potassium 2.8 mEq/L (3.5-5.1) L* 01/31/17 09:05 Chloride 107 mEq/L (98-107) 01/31/17 09:05 Carbon Dioxide 31.8 mEq/L (21.0-31.0) H 01/31/17 09:05 Anion Gap 5.0 (7.0-16.0) L 01/31/17 09:05 BUN 27 mg/dL (7-25) H 01/31/17 09:05 Creatinine 0.6 mg/dL (0.6-1.2) 01/31/17 09:05 Est GFR ( Amer) > 60.0 ml/min (>90) 01/31/17 09:05 Est GFR (Non-Af Amer) > 60.0 ml/min 01/31/17 09:05 BUN/Creatinine Ratio 45.0 01/31/17 09:05 Glucose 236 mg/dL (70-105) H 01/31/17 09:05 POC Glucose 218 MG/DL (70 - 105) H 01/31/17 11:45 Hemoglobin A1c % 6.0 % (4.0-6.0) 01/25/17 01:48 Whole Bld Lactic Acid 1.60 mmol/L (0.60-1.99) 01/25/17 02:12 Calcium 8.2 mg/dL (8.6-10.3) L 01/31/17 09:05 Magnesium 1.8 mg/dL (1.9-2.7) L 01/31/17 09:05 Total Bilirubin 0.4 mg/dL (0.3-1.0) 01/31/17 09:05 AST 10 U/L (13-39) L 01/31/17 09:05 ALT 10 U/L (7-52) 01/31/17 09:05 Alkaline Phosphatase 54 U/L (34-104) 01/31/17 09:05 Troponin I < 0.01 ng/mL (0.01-0.05) L 01/25/17 01:48 Total Protein 4.8 gm/dL (6.0-8.3) L 01/31/17 09:05 Albumin 2.5 gm/dL (3.7-5.3) L 01/31/17 09:05 Globulin 2.3 gm/dL 01/31/17 09:05 Albumin/Globulin Ratio 1.1 (1.0-1.8) 01/31/17 09:05 Triglycerides 98 mg/dL (<150) 01/25/17 01:48 Cholesterol 146 mg/dL (<200) 01/25/17 01:48 LDL Cholesterol Direct 37 mg/dL (75-193) L 01/25/17 01:48 HDL Cholesterol 83 mg/dL (23-92) 01/25/17 01:48 TSH 1.45 uIU/ml (0.34-5.60) 01/25/17 01:48 Urine Source CLEAN C 01/25/17 03:00 Urine Color YELLOW 01/25/17 03:00 Urine Clarity CLEAR (CLEAR) 01/25/17 03:00 Urine pH 5.5 01/25/17 03:00 Ur Specific [place] 1.010 (1.005-1.030) 01/25/17 03:00 Urine Protein NEGATIVE mg/dL (NEGATIVE) 01/25/17 03:00 Urine Glucose (UA) 500 mg/dL (NEGATIVE) H 01/25/17 03:00 Urine Ketones NEGATIVE mg/dL (NEGATIVE) 01/25/17 03:00 Urine Blood NEGATIVE (NEGATIVE) 01/25/17 03:00 Urine Nitrate POSITIVE (NEGATIVE) H 01/25/17 03:00 Urine Bilirubin NEGATIVE (NEGATIVE) 01/25/17 03:00 Urine Urobilinogen 1.0 E.U./dL (0.2 - 1.0) 01/25/17 03:00 Ur Leukocyte Esterase NEGATIVE (NEGATIVE) 01/25/17 03:00 Urine RBC 0-2 /hpf (0-5) 01/25/17 03:00 Urine WBC 10-25 /hpf (0-5) H 01/25/17 03:00 Ur Epithelial Cells OCCASIONAL /lpf (FEW) 01/25/17 03:00 Urine Bacteria MANY /hpf (NONE SEEN) 01/25/17 03:00 Vancomycin Trough 6.1 ug/mL (10-20) L 01/29/17 23:03 Salicylates < 25.0 mg/L (30.0-100.0) L 01/25/17 01:48 Urine Opiates Screen POSITIVE (NEGATIVE) H 01/25/17 03:00 Acetaminophen < 10.0 ug/mL (10.0-30.0) L 01/25/17 01:48 Ur Barbiturates Screen NEGATIVE (NEGATIVE) 01/25/17 03:00 Ur Phencyclidine Scrn NEGATIVE (NEGATIVE) 01/25/17 03:00 Amphetamines Screen POSITIVE (NEGATIVE) H 01/25/17 03:00 U Methamphetamines Scrn POSITIVE (NEGATIVE) H 01/25/17 03:00 U Benzodiazepines Scrn NEGATIVE (NEGATIVE) 01/25/17 03:00 U Cocaine Metab Screen NEGATIVE (NEGATIVE) 01/25/17 03:00 U Cannabinoids Screen NEGATIVE (NEGATIVE) 01/25/17 03:00 Ethyl Alcohol < 10 mg/dL (0-10) 01/25/17 01:48 RPR NONREACTIVE (NONREACTIVE) 01/25/17 01:48 HIV 1&2 Antibody Screen NEGATIVE (NEG) 01/26/17 05:02 - Physical Exam Vitals and I&O: Vital Signs Temp 97.5 F 01/31/17 08:00 Pulse 106 01/31/17 08:00 Resp 18 01/31/17 08:00 BP 152/92 01/31/17 08:00 Pulse Ox 93 01/31/17 08:00 Intake & Output 01/30/17 01/31/17 01/31/17 18:59 06:59 18:59 Intake Total 290 1150 100 Output Total 1390 500 Balance -1100 650 100 Intake: Intake, IV Amount 100 550 100 KCL 20mEq/100mL Premix 20 100 meq In 100 ml @ 50 mls/ hr IV Q2H [facility] Rx#: [id number] KCL 20mEq/100mL Premix 20 100 meq In 100 ml @ 50 mls/ hr IV Q2H [facility] Rx#: [id number] Vancomycin HCl 1 gm In 250 Sodium Chloride 0.9% 250 ml @ 165 mls/hr IV Q12H [facility] Rx#:[id number] metroNIDAZOLE 500mg/NS 100 200 100mL 500 mg In 100 ml @ 100 mls/hr IV Q8HR [facility] Rx #:[id number] Oral 40 TPN/PPN 150 600 Output: Gastric Drainage 700 Drainage 40 50 Left Lower Abdomen 40 50 Urine 650 350 Emesis 100 Other: # Bowel Movements 1 1 Active Medications: Current Medications Clonidine HCl (Catapres) 0.1 mg PO Q4H PRN PRN Reason: sbp >160 and diastolic >100 Stop: 03/31/17 16:11 Hydromorphone HCl (Dilaudid) 1 mg IVP Q3H PRN PRN Reason: MODERATE PAIN Stop: 03/26/17 17:55 Last Admin: 01/29/17 20:17 Dose: 1 mg Hydromorphone HCl (Dilaudid) 2 mg IVP Q3H PRN PRN Reason: SEVERE PAIN Stop: 03/26/17 17:56 Last Admin: 01/30/17 03:53 Dose: 2 mg Ceftriaxone Sodium 1 gm/ (Dextrose) 50 mls @ 100 mls/hr IV Q24H [facility] Stop: 03/27/17 20:59 Last Admin: 01/30/17 21:04 Dose: 100 mls/hr Metronidazole (Flagyl) 500 mg in 100 mls @ 100 mls/hr IV Q8HR [facility] Stop: 03/28/17 04:59 Last Admin: 01/31/17 12:32 Dose: 100 mls/hr Dextrose/Sodium Chloride (D5-0.45ns) 1,000 mls @ 50 mls/hr IV .Q20H [facility] Stop: 03/29/17 14:46 Last Admin: 01/29/17 12:14 Dose: 50 mls/hr Vancomycin HCl 1 gm/ Sodium (Chloride) 250 mls @ 165 mls/hr IV Q12H [facility] Stop: 04/01/17 00:00 Last Admin: 01/31/17 12:36 Dose: 165 mls/hr Potassium Chloride (Potassium Chloride) 20 meq in 100 mls @ 50 mls/hr IV Q2H [facility] Stop: 01/31/17 15:59 Last Admin: 01/31/17 12:54 Dose: 50 mls/hr Amino Acids/ Fat Emulsion (Intravenous) 1,200 mls @ 40 mls/hr IV .Q24H [facility] Stop: 04/01/17 10:14 Last Admin: 01/31/17 13:09 Dose: 40 mls/hr Insulin Aspart (Novolog) 0 units SUBQ Q6HR [facility] PRN Reason: Protocol Stop: 03/28/17 08:59 Last Admin: 01/31/17 13:16 Dose: 4 units Lactobacillus Rhamnosus (Culturelle) 1 each PO DAILY [facility] Stop: 03/29/17 08:59 Last Admin: 01/31/17 10:16 Dose: Not Given Meperidine HCl (Demerol) 12.5 mg IVP Q2M PRN PRN Reason: POST-OP PAIN Stop: 03/27/17 19:19 Miscellaneous (Vancomycin Iv Per Pharmacy) 1 ea MC PRN [facility] Stop: 03/28/17 02:29 Miscellaneous (Probiotic Screen) 1 ea PRN PRN PRN Reason: PROTOCOL Stop: 03/28/17 13:21 Miscellaneous (Tpn Per Pharmacy) 1 ea PRN PRN PRN Reason: PROTOCOL Stop: 03/31/17 16:11 Ondansetron HCl (Zofran) 4 mg IV Q6H PRN PRN Reason: Nausea / Vomiting Stop: 03/26/17 16:27 Last Admin: 01/31/17 10:18 Dose: 4 mg Pantoprazole Sodium (Protonix) 40 mg IVP BID [facility] Stop: 04/01/17 16:59 - Procedures Procedures: Procedures Procedure Code Date BYPASS STOMACH TO JEJUNUM, OPEN APPROACH [id number] 01/25/17 FUSION OF STOMACH AND BOWEL 12712 01/25/17 REMOVAL OF GALLBLADDER 65182 01/25/17 REPAIR STOMACH, OPEN APPROACH [id number] 01/25/17 RESECTION OF GALLBLADDER, OPEN APPROACH [id number] 01/25/17 RESPIRATORY VENTILATION, LESS THAN 24 CONSECUTIVE HOURS [id number] 01/25/17 STOMACH SURGERY PROCEDURE 74968 01/25/17 VENT MGMT INPAT INIT DAY 89801 01/25/17 Assessment/Plan - Problem List Patient Problems: All Active Problems H/O diabetes mellitus (Acute) Z86.39 H/O drug abuse (Acute) Z87.898 H/O: HTN (hypertension) (Acute) Z86.79 UTI (urinary tract infection) (Acute) h/o dementia (Acute) r/o sepsis (Acute) s/p surgery (Acute) Nutritional Asmnt/Malnutr-PDOC - Dietary Evaluation Malnutrition Findings (Please click <Entered> for more info): Nutritional Asmnt/Malnutrition Start: 01/26/17 14: 32 Text: Status: Complete Freq: Document 01/26/17 14:32 GSUN (Rec: 01/26/17 14:51 GSUN [id number]) Nutritional Asmnt/Malnutrition Patient General Information Nutritional Screening Consult Diagnosis UTI, leukocytosis maybe reactive versus sepsis Pertinent Medical Hx/Surgical Hx HTN, DM, drug abuse, dementia Subjective Information 71 year old female, homeless. RD consult for BG >180. Pt was NPO at time of visit for CT abdomen/pelvis scan. Pt was agitated and in pain during visit. Pt refused to answer RD questions, repeatedly asked about bowel prep processes, then yelled at RD to leave. Pertinent Medications Dilaudid, Zofran Pertinent Labs 01/25: A1c 6, glucose 319H Nutritional Hx/Data Height 1.73 m Height (Calculated Centimeters) 172.7 Current Weight (lbs) 69.899 kg Weight (Calculated Kilograms) 69.9 Weight (Calculated Grams) 56941.6 [place] Body Weight 140lb Weight Status Approriate GI Symptoms Cultural/Ethnic/[employer] Belief Unknown. Usual diet at home Unknown. Estimated Nutritional Goals BEE in Kcals: Using Current wt Calories/Kcals/Kg CBW 70kg Kcals Calculated 1750-2100kcal (25-30kcal/kg, ? possible sepsis) Protein: Using Current wt Protein Calculated 70g (1g/kg) Fluid: ml 1750-2100ml (1ml/kcal) Nutritional Problem 1. Problem Problem Altered nutrition related laboratory values related to Etiology DM aeb Signs/Symptoms: H&P, glucose 319H on adm Intervention/Recommendation Comments 1. NPO at time of visit. Diet advancement per MD, recommend [id number] to promtoe glycemic control. 2. Provide edu on DM as needed . Expected Outcomes/Goals Expected Outcomes/Goals 1. [place] to meet 100% of estimated nutritional needs.
[2017-01-31] MEDS ORDERED: KCL 20mEq/100mL Premix 20 MEQ/100 ML PIGGYBACK IV ONE (15:30)
[2017-01-31] MEDS: HYDROmorphone 2 mg/mL 1mL Vial IVP PRN (21:45)
--- NOTE | 2017-01-31 23:56 | Infectious Disease Prog Note ---
Infectious Disease Subjective - Review of Systems Service Date: 01/31/17 Subjective: Doing well. Infectious Disease Objective - Results Result Diagrams: 01/31/17 05:40 01/31/17 09:05 Recent Labs: Laboratory Last Values WBC 19.2 Th/cmm (4.8-10.8) H 01/31/17 05:40 RBC 3.35 Mil/cmm (3.80-5.20) L 01/31/17 05:40 Hgb 11.3 gm/dL (11.7-16.1) L 01/31/17 05:40 Hct 32.8 % (35.0-45.0) L 01/31/17 05:40 MCV 97.9 fl (81-100) 01/31/17 05:40 MCH 33.7 pg (27.0-31.0) H 01/31/17 05:40 MCHC Differential 34.5 pg (28.0-36.0) 01/31/17 05:40 RDW 12.3 % (11.5-20.0) 01/31/17 05:40 Plt Count 296 Th/cmm (150-400) 01/31/17 05:40 MPV 7.6 fl 01/31/17 05:40 Neutrophils % 75.1 % (40.0-80.0) 01/25/17 01:48 Band Neutrophils % 1 % (0-10) 01/31/17 05:40 Lymphocytes % 13.3 % (20.0-50.0) L 01/25/17 01:48 Monocytes % 10.0 % (2.0-10.0) 01/25/17 01:48 Eosinophils % 0.8 % (0.0-5.0) 01/25/17 01:48 Basophils % 0.8 % (0.0-2.0) 01/25/17 01:48 Neutrophils (Manual) 77 % (40-80) 01/31/17 05:40 Lymphocytes 8 % (20-50) L 01/31/17 05:40 Monocytes 12 % (2-10) H 01/31/17 05:40 Myelocytes 2 % 01/31/17 05:40 Platelet Estimate ADEQUATE (NORMAL) 01/31/17 05:40 Platelet Morphology NORMAL (NORMAL) 01/31/17 05:40 RBC Morph Micro Appear NORMAL (NORMAL) 01/31/17 05:40 PT 9.9 SECONDS (9.5-11.5) 01/25/17 01:48 INR 0.95 (0.5-1.4) 01/25/17 01:48 Specimen Source Arterial 01/27/17 09:13 Sample Site Right Radial 01/27/17 09:13 pH 7.36 (7.35-7.45) 01/27/17 09:13 pCO2 41.0 mmHg (35.0-45.0) 01/27/17 09:13 pO2 100.0 mmHg (80.0-100.0) 01/27/17 09:13 HCO3 23.2 mEq/L (20.0-26.0) 01/27/17 09:13 Base Excess -2.2 mEq/L (-3.0-3.0) 01/27/17 09:13 O2 Saturation 97.0 % (92.0-100.0) 01/27/17 09:13 Luther Test PASS 01/27/17 09:13 Vent Rate 13 01/27/17 09:13 Inspired O2 30 01/27/17 09:13 Tidal Volume 500 01/27/17 09:13 PEEP 5 01/27/17 09:13 Pressure (ins/psv/peep) N/A 01/26/17 21:00 Critical Value PW 01/27/17 09:13 Sodium 141 mEq/L (136-145) 01/31/17 09:05 Potassium 2.8 mEq/L (3.5-5.1) L* 01/31/17 09:05 Chloride 107 mEq/L (98-107) 01/31/17 09:05 Carbon Dioxide 31.8 mEq/L (21.0-31.0) H 01/31/17 09:05 Anion Gap 5.0 (7.0-16.0) L 01/31/17 09:05 BUN 27 mg/dL (7-25) H 01/31/17 09:05 Creatinine 0.6 mg/dL (0.6-1.2) 01/31/17 09:05 Est GFR ( Amer) > 60.0 ml/min (>90) 01/31/17 09:05 Est GFR (Non-Af Amer) > 60.0 ml/min 01/31/17 09:05 BUN/Creatinine Ratio 45.0 01/31/17 09:05 Glucose 236 mg/dL (70-105) H 01/31/17 09:05 POC Glucose 256 MG/DL (70 - 105) H 01/31/17 20:59 Hemoglobin A1c % 6.0 % (4.0-6.0) 01/25/17 01:48 Whole Bld Lactic Acid 1.60 mmol/L (0.60-1.99) 01/25/17 02:12 Calcium 8.2 mg/dL (8.6-10.3) L 01/31/17 09:05 Magnesium 1.8 mg/dL (1.9-2.7) L 01/31/17 09:05 Total Bilirubin 0.4 mg/dL (0.3-1.0) 01/31/17 09:05 AST 10 U/L (13-39) L 01/31/17 09:05 ALT 10 U/L (7-52) 01/31/17 09:05 Alkaline Phosphatase 54 U/L (34-104) 01/31/17 09:05 Troponin I < 0.01 ng/mL (0.01-0.05) L 01/25/17 01:48 Total Protein 4.8 gm/dL (6.0-8.3) L 01/31/17 09:05 Albumin 2.5 gm/dL (3.7-5.3) L 01/31/17 09:05 Globulin 2.3 gm/dL 01/31/17 09:05 Albumin/Globulin Ratio 1.1 (1.0-1.8) 01/31/17 09:05 Triglycerides 98 mg/dL (<150) 01/25/17 01:48 Cholesterol 146 mg/dL (<200) 01/25/17 01:48 LDL Cholesterol Direct 37 mg/dL (75-193) L 01/25/17 01:48 HDL Cholesterol 83 mg/dL (23-92) 01/25/17 01:48 TSH 1.45 uIU/ml (0.34-5.60) 01/25/17 01:48 Urine Source CLEAN C 01/25/17 03:00 Urine Color YELLOW 01/25/17 03:00 Urine Clarity CLEAR (CLEAR) 01/25/17 03:00 Urine pH 5.5 01/25/17 03:00 Ur Specific [place] 1.010 (1.005-1.030) 01/25/17 03:00 Urine Protein NEGATIVE mg/dL (NEGATIVE) 01/25/17 03:00 Urine Glucose (UA) 500 mg/dL (NEGATIVE) H 01/25/17 03:00 Urine Ketones NEGATIVE mg/dL (NEGATIVE) 01/25/17 03:00 Urine Blood NEGATIVE (NEGATIVE) 01/25/17 03:00 Urine Nitrate POSITIVE (NEGATIVE) H 01/25/17 03:00 Urine Bilirubin NEGATIVE (NEGATIVE) 01/25/17 03:00 Urine Urobilinogen 1.0 E.U./dL (0.2 - 1.0) 01/25/17 03:00 Ur Leukocyte Esterase NEGATIVE (NEGATIVE) 01/25/17 03:00 Urine RBC 0-2 /hpf (0-5) 01/25/17 03:00 Urine WBC 10-25 /hpf (0-5) H 01/25/17 03:00 Ur Epithelial Cells OCCASIONAL /lpf (FEW) 01/25/17 03:00 Urine Bacteria MANY /hpf (NONE SEEN) 01/25/17 03:00 Vancomycin Trough 6.1 ug/mL (10-20) L 01/29/17 23:03 Salicylates < 25.0 mg/L (30.0-100.0) L 01/25/17 01:48 Urine Opiates Screen POSITIVE (NEGATIVE) H 01/25/17 03:00 Acetaminophen < 10.0 ug/mL (10.0-30.0) L 01/25/17 01:48 Ur Barbiturates Screen NEGATIVE (NEGATIVE) 01/25/17 03:00 Ur Phencyclidine Scrn NEGATIVE (NEGATIVE) 01/25/17 03:00 Amphetamines Screen POSITIVE (NEGATIVE) H 01/25/17 03:00 U Methamphetamines Scrn POSITIVE (NEGATIVE) H 01/25/17 03:00 U Benzodiazepines Scrn NEGATIVE (NEGATIVE) 01/25/17 03:00 U Cocaine Metab Screen NEGATIVE (NEGATIVE) 01/25/17 03:00 U Cannabinoids Screen NEGATIVE (NEGATIVE) 01/25/17 03:00 Ethyl Alcohol < 10 mg/dL (0-10) 01/25/17 01:48 RPR NONREACTIVE (NONREACTIVE) 01/25/17 01:48 HIV 1&2 Antibody Screen NEGATIVE (NEG) 01/26/17 05:02 - Physical Exam Vitals and I&O: Vital Signs Temp 98.9 F 01/31/17 20:00 Pulse 114 01/31/17 20:00 Resp 20 01/31/17 20:00 BP 150/93 01/31/17 20:00 Pulse Ox 98 01/31/17 20:00 Intake & Output 01/31/17 01/31/17 02/01/17 06:59 18:59 06:59 Intake Total 1200 610 Output Total 500 1220 Balance 700 -610 Intake: Intake, IV Amount 600 300 KCL 20mEq/100mL Premix 20 100 meq In 100 ml @ 50 mls/ hr IV Q2H [facility] Rx#: [id number] KCL 20mEq/100mL Premix 20 200 meq In 100 ml @ 50 mls/ hr IV Q2H [facility] Rx#: [id number] Vancomycin HCl 1 gm In 250 Sodium Chloride 0.9% 250 ml @ 165 mls/hr IV Q12H [facility] Rx#:[id number] cefTRIAXone 1 gm In 50 Dextrose 5% 50 ml @ 100 mls/hr IV Q24H [facility] Rx#: [id number] metroNIDAZOLE 500mg/NS 200 100 100mL 500 mg In 100 ml @ 100 mls/hr IV Q8HR [facility] Rx #:[id number] TPN/PPN 600 Other 310 Output: Drainage 50 120 Left Lower Abdomen 50 120 Urine 350 800 Emesis 100 300 Other: # Bowel Movements 1 2 Active Medications: Current Medications Clonidine HCl (Catapres) 0.1 mg PO Q4H PRN PRN Reason: sbp >160 and diastolic >100 Stop: 03/31/17 16:11 Last Admin: 01/31/17 17:06 Dose: 0.1 mg Hydromorphone HCl (Dilaudid) 1 mg IVP Q3H PRN PRN Reason: MODERATE PAIN Stop: 03/26/17 17:55 Last Admin: 01/29/17 20:17 Dose: 1 mg Hydromorphone HCl (Dilaudid) 2 mg IVP Q3H PRN PRN Reason: SEVERE PAIN Stop: 03/26/17 17:56 Last Admin: 01/31/17 21:45 Dose: 2 mg Ceftriaxone Sodium 1 gm/ (Dextrose) 50 mls @ 100 mls/hr IV Q24H [facility] Stop: 03/27/17 20:59 Last Admin: 01/31/17 20:35 Dose: 100 mls/hr Metronidazole (Flagyl) 500 mg in 100 mls @ 100 mls/hr IV Q8HR [facility] Stop: 03/28/17 04:59 Last Admin: 01/31/17 21:39 Dose: 100 mls/hr Dextrose/Sodium Chloride (D5-0.45ns) 1,000 mls @ 50 mls/hr IV .Q20H [facility] Stop: 03/29/17 14:46 Last Admin: 01/29/17 12:14 Dose: 50 mls/hr Vancomycin HCl 1 gm/ Sodium (Chloride) 250 mls @ 165 mls/hr IV Q12H [facility] Stop: 04/01/17 00:00 Last Admin: 01/31/17 12:36 Dose: 165 mls/hr Amino Acids/ Fat Emulsion (Intravenous) 1,200 mls @ 40 mls/hr IV .Q24H [facility] Stop: 04/01/17 10:14 Last Admin: 01/31/17 13:09 Dose: 40 mls/hr Insulin Aspart (Novolog) 0 units SUBQ Q6HR [facility] PRN Reason: Protocol Stop: 03/28/17 08:59 Last Admin: 01/31/17 17:14 Dose: 6 units Lactobacillus Rhamnosus (Culturelle) 1 each PO DAILY [facility] Stop: 03/29/17 08:59 Last Admin: 01/31/17 10:16 Dose: Not Given Meperidine HCl (Demerol) 12.5 mg IVP Q2M PRN PRN Reason: POST-OP PAIN Stop: 03/27/17 19:19 Miscellaneous (Vancomycin Iv Per Pharmacy) 1 ea MC PRN [facility] Stop: 03/28/17 02:29 Miscellaneous (Probiotic Screen) 1 ea PRN PRN PRN Reason: PROTOCOL Stop: 03/28/17 13:21 Miscellaneous (Tpn Per Pharmacy) 1 ea PRN PRN PRN Reason: PROTOCOL Stop: 03/31/17 16:11 Ondansetron HCl (Zofran) 4 mg IV Q6H PRN PRN Reason: Nausea / Vomiting Stop: 03/26/17 16:27 Last Admin: 01/31/17 17:13 Dose: 4 mg Pantoprazole Sodium (Protonix) 40 mg IVP BID [facility] Stop: 04/01/17 16:59 Last Admin: 01/31/17 17:06 Dose: 40 mg General: no acute distress, well developed, well nourished HEENT: atraumatic, normocephalic, PERRLA, EOMI Neck: supple, no thyromegaly, no lymphadenopathy Cardiovascular: S1S2, regular Lungs: clear to auscultation bilaterally, clear to percussion Abdomen: soft, other (SANCHEZ drain), no tender, no distended Extremities: no cyanosis, no clubbing, no edema Neurological: awake, alert, oriented Skin: intact - Procedures Procedures: Procedures Procedure Code Date BYPASS STOMACH TO JEJUNUM, OPEN APPROACH [id number] 01/25/17 FUSION OF STOMACH AND BOWEL 00239 01/25/17 REMOVAL OF GALLBLADDER 87338 01/25/17 REPAIR STOMACH, OPEN APPROACH [id number] 01/25/17 RESECTION OF GALLBLADDER, OPEN APPROACH [id number] 01/25/17 RESPIRATORY VENTILATION, LESS THAN 24 CONSECUTIVE HOURS [id number] 01/25/17 STOMACH SURGERY PROCEDURE 24824 01/25/17 VENT MGMT INPAT INIT DAY 53888 01/25/17 Infectious Disease Assmt/Plan - Problem List Patient Problems: All Active Problems H/O diabetes mellitus (Acute) Z86.39 H/O drug abuse (Acute) Z87.898 H/O: HTN (hypertension) (Acute) Z86.79 UTI (urinary tract infection) (Acute) h/o dementia (Acute) r/o sepsis (Acute) s/p surgery (Acute) - Assessment Assessment: 1. Peritonitis. 2. Gastric bypass perforation. 3. S/p exploratory lap and repair anastomotic leak/ perforation. 4. UTI - Plan Plan: Continue Ceftriaxone and flagyl. Nutritional Asmnt/Malnutr-PDOC - Dietary Evaluation Malnutrition Findings (Please click <Entered> for more info): Nutritional Asmnt/Malnutrition Start: 01/26/17 14: 32 Text: Status: Complete Freq: Document 01/26/17 14:32 GSUN (Rec: 01/26/17 14:51 [email or web address] [id number]) Nutritional Asmnt/Malnutrition Patient General Information Nutritional Screening Consult Diagnosis UTI, leukocytosis maybe reactive versus sepsis Pertinent Medical Hx/Surgical Hx HTN, DM, drug abuse, dementia Subjective Information 71 year old female, homeless. RD consult for BG >180. Pt was NPO at time of visit for CT abdomen/pelvis scan. Pt was agitated and in pain during visit. Pt refused to answer RD questions, repeatedly asked about bowel prep processes, then yelled at RD to leave. Pertinent Medications Dilaudid, Zofran Pertinent Labs 01/25: A1c 6, glucose 319H Nutritional Hx/Data Height 1.73 m Height (Calculated Centimeters) 172.7 Current Weight (lbs) 69.899 kg Weight (Calculated Kilograms) 69.9 Weight (Calculated Grams) 25201.6 Bruno Body Weight 140lb Weight Status Approriate GI Symptoms Cultural/Ethnic/Druze Belief Unknown. Usual diet at home Unknown. Estimated Nutritional Goals BEE in Kcals: Using Current wt Calories/Kcals/Kg CBW 70kg Kcals Calculated 1750-2100kcal (25-30kcal/kg, ? possible sepsis) Protein: Using Current wt Protein Calculated 70g (1g/kg) Fluid: ml 1750-2100ml (1ml/kcal) Nutritional Problem 1. Problem Problem Altered nutrition related laboratory values related to Etiology DM aeb Signs/Symptoms: H&P, glucose 319H on adm Intervention/Recommendation Comments 1. NPO at time of visit. Diet advancement per MD, recommend [id number] to promtoe glycemic control. 2. Provide edu on DM as needed . Expected Outcomes/Goals Expected Outcomes/Goals 1. [place] to meet 100% of estimated nutritional needs.
[2017-02-01] MEDS: INSULIN ASPART, RECOMBINANT 100 UNITS/ML SUBQ SCH ×4 (00:05→17:15)
--- NOTE | 2017-02-01 03:24 | Progress Notes ---
SUBJECTIVE: The patient was seen in her room, lying on the bed. Per the patient, had an episode of vomiting this morning and minimal abdominal pain, which is controlled with current pain medication that she is getting. OBJECTIVE: HEENT: Head: Atraumatic and normocephalic. Eyes: Bilateral conjunctivae are clear. NECK: Supple. No JVD. CARDIOVASCULAR: S1 and S2 heard without murmur. PULMONARY: Mild inspiratory wheezing noted. GASTROINTESTINAL: Soft and minimal tenderness. SANCHEZ has serous drainage. MUSCULOSKELETAL: No edema nor clubbing noted. ASSESSMENT: 1. Perforated viscous. 2. Diabetes mellitus. 3. Hypertension. 4. Urinary tract infection. 5. History of drug abuse. 6. Status post surgery. PLAN: We will keep the patient inpatient. We will continue IV antibiotics per ID doctor. We will monitor patient's postop condition with the surgical doctor. JOB# [id number]
[2017-02-01] MEDS: HYDROmorphone 2 mg/mL 1mL Vial IVP PRN ×5 (04:43→21:09)
[2017-02-01] MEDS: metroNIDAZOLE 500mg/NS 100mL 500 MG/100 ML BAG IV SCH ×3 (04:48→21:07)
[2017-02-01 07:46] LABS: ALB/GLOB RATIO 1.1 (1.0-1.8); ANION GAP 5.7 (7.0-16.0); BILIRUBIN,TOTAL 0.4 mg/dL (0.3-1.0); BUN - UREA NITROGEN 25 mg/dL (7-25); BUN/CREATININE RATIO 31.3; CARBON DIOXIDE 29.4 mEq/L (21.0-31.0); CHLORIDE 106 mEq/L (98-107); CREATININE - SERUM 0.8 mg/dL (0.6-1.2); GLUCOSE 399 mg/dL (70-105); MAGNESIUM 1.7 mg/dL (1.9-2.7); POTASSIUM SERUM 3.1 mEq/L (3.5-5.1); SGOT 7 U/L (13-39); SGPT/ALT 8 U/L (7-52); SODIUM SERUM 138 mEq/L (136-145)
[2017-02-01] MEDS: Lactobacillus Rhamnosus 10 Billion CFU Capsule PO SCH (08:08)
[2017-02-01 08:37] LABS: ALKALINE PHOSPHATASE 50 U/L (34-104)
--- NOTE | 2017-02-01 08:49 | General Progress Note ---
Subjective - Review of Systems Events since last encounter: 02/01/17 POD #6 having BMs no nausea, taking liquids redressed, incision healing well SANCHEZ drain out Objective - Results Result Diagrams: 01/31/17 05:40 02/01/17 06:55 Recent Labs: Laboratory Last Values WBC 19.2 Th/cmm (4.8-10.8) H 01/31/17 05:40 RBC 3.35 Mil/cmm (3.80-5.20) L 01/31/17 05:40 Hgb 11.3 gm/dL (11.7-16.1) L 01/31/17 05:40 Hct 32.8 % (35.0-45.0) L 01/31/17 05:40 MCV 97.9 fl (81-100) 01/31/17 05:40 MCH 33.7 pg (27.0-31.0) H 01/31/17 05:40 MCHC Differential 34.5 pg (28.0-36.0) 01/31/17 05:40 RDW 12.3 % (11.5-20.0) 01/31/17 05:40 Plt Count 296 Th/cmm (150-400) 01/31/17 05:40 MPV 7.6 fl 01/31/17 05:40 Neutrophils % 75.1 % (40.0-80.0) 01/25/17 01:48 Band Neutrophils % 1 % (0-10) 01/31/17 05:40 Lymphocytes % 13.3 % (20.0-50.0) L 01/25/17 01:48 Monocytes % 10.0 % (2.0-10.0) 01/25/17 01:48 Eosinophils % 0.8 % (0.0-5.0) 01/25/17 01:48 Basophils % 0.8 % (0.0-2.0) 01/25/17 01:48 Neutrophils (Manual) 77 % (40-80) 01/31/17 05:40 Lymphocytes 8 % (20-50) L 01/31/17 05:40 Monocytes 12 % (2-10) H 01/31/17 05:40 Myelocytes 2 % 01/31/17 05:40 Platelet Estimate ADEQUATE (NORMAL) 01/31/17 05:40 Platelet Morphology NORMAL (NORMAL) 01/31/17 05:40 RBC Morph Micro Appear NORMAL (NORMAL) 01/31/17 05:40 PT 9.9 SECONDS (9.5-11.5) 01/25/17 01:48 INR 0.95 (0.5-1.4) 01/25/17 01:48 Specimen Source Arterial 01/27/17 09:13 Sample Site Right Radial 01/27/17 09:13 pH 7.36 (7.35-7.45) 01/27/17 09:13 pCO2 41.0 mmHg (35.0-45.0) 01/27/17 09:13 pO2 100.0 mmHg (80.0-100.0) 01/27/17 09:13 HCO3 23.2 mEq/L (20.0-26.0) 01/27/17 09:13 Base Excess -2.2 mEq/L (-3.0-3.0) 01/27/17 09:13 O2 Saturation 97.0 % (92.0-100.0) 01/27/17 09:13 Luther Test PASS 01/27/17 09:13 Vent Rate 13 01/27/17 09:13 Inspired O2 30 01/27/17 09:13 Tidal Volume 500 01/27/17 09:13 PEEP 5 01/27/17 09:13 Pressure (ins/psv/peep) N/A 01/26/17 21:00 Critical Value PW 01/27/17 09:13 Sodium 138 mEq/L (136-145) 02/01/17 06:55 Potassium 3.1 mEq/L (3.5-5.1) L 02/01/17 06:55 Chloride 106 mEq/L (98-107) 02/01/17 06:55 Carbon Dioxide 29.4 mEq/L (21.0-31.0) 02/01/17 06:55 Anion Gap 5.7 (7.0-16.0) L 02/01/17 06:55 BUN 25 mg/dL (7-25) 02/01/17 06:55 Creatinine 0.8 mg/dL (0.6-1.2) 02/01/17 06:55 Est GFR ( Amer) > 60.0 ml/min (>90) 02/01/17 06:55 Est GFR (Non-Af Amer) > 60.0 ml/min 02/01/17 06:55 BUN/Creatinine Ratio 31.3 02/01/17 06:55 Glucose 399 mg/dL (70-105) H 02/01/17 06:55 POC Glucose 364 MG/DL (70 - 105) H 02/01/17 06:08 Hemoglobin A1c % 6.0 % (4.0-6.0) 01/25/17 01:48 Whole Bld Lactic Acid 1.60 mmol/L (0.60-1.99) 01/25/17 02:12 Calcium 8.0 mg/dL (8.6-10.3) L 02/01/17 06:55 Phosphorus 4.4 mg/dL (2.5-5.0) 02/01/17 06:55 Magnesium 1.7 mg/dL (1.9-2.7) L 02/01/17 06:55 Total Bilirubin 0.4 mg/dL (0.3-1.0) 02/01/17 06:55 AST 7 U/L (13-39) L 02/01/17 06:55 ALT 8 U/L (7-52) 02/01/17 06:55 Alkaline Phosphatase 50 U/L (34-104) 02/01/17 06:55 Troponin I < 0.01 ng/mL (0.01-0.05) L 01/25/17 01:48 Total Protein 4.4 gm/dL (6.0-8.3) L 02/01/17 06:55 Albumin 2.3 gm/dL (3.7-5.3) L 02/01/17 06:55 Globulin 2.1 gm/dL 02/01/17 06:55 Albumin/Globulin Ratio 1.1 (1.0-1.8) 02/01/17 06:55 Triglycerides 98 mg/dL (<150) 01/25/17 01:48 Cholesterol 146 mg/dL (<200) 01/25/17 01:48 LDL Cholesterol Direct 37 mg/dL (75-193) L 01/25/17 01:48 HDL Cholesterol 83 mg/dL (23-92) 01/25/17 01:48 TSH 1.45 uIU/ml (0.34-5.60) 01/25/17 01:48 Urine Source CLEAN C 01/25/17 03:00 Urine Color YELLOW 01/25/17 03:00 Urine Clarity CLEAR (CLEAR) 01/25/17 03:00 Urine pH 5.5 01/25/17 03:00 Ur Specific [place] 1.010 (1.005-1.030) 01/25/17 03:00 Urine Protein NEGATIVE mg/dL (NEGATIVE) 01/25/17 03:00 Urine Glucose (UA) 500 mg/dL (NEGATIVE) H 01/25/17 03:00 Urine Ketones NEGATIVE mg/dL (NEGATIVE) 01/25/17 03:00 Urine Blood NEGATIVE (NEGATIVE) 01/25/17 03:00 Urine Nitrate POSITIVE (NEGATIVE) H 01/25/17 03:00 Urine Bilirubin NEGATIVE (NEGATIVE) 01/25/17 03:00 Urine Urobilinogen 1.0 E.U./dL (0.2 - 1.0) 01/25/17 03:00 Ur Leukocyte Esterase NEGATIVE (NEGATIVE) 01/25/17 03:00 Urine RBC 0-2 /hpf (0-5) 01/25/17 03:00 Urine WBC 10-25 /hpf (0-5) H 01/25/17 03:00 Ur Epithelial Cells OCCASIONAL /lpf (FEW) 01/25/17 03:00 Urine Bacteria MANY /hpf (NONE SEEN) 01/25/17 03:00 Vancomycin Trough 6.1 ug/mL (10-20) L 01/29/17 23:03 Salicylates < 25.0 mg/L (30.0-100.0) L 01/25/17 01:48 Urine Opiates Screen POSITIVE (NEGATIVE) H 01/25/17 03:00 Acetaminophen < 10.0 ug/mL (10.0-30.0) L 01/25/17 01:48 Ur Barbiturates Screen NEGATIVE (NEGATIVE) 01/25/17 03:00 Ur Phencyclidine Scrn NEGATIVE (NEGATIVE) 01/25/17 03:00 Amphetamines Screen POSITIVE (NEGATIVE) H 01/25/17 03:00 U Methamphetamines Scrn POSITIVE (NEGATIVE) H 01/25/17 03:00 U Benzodiazepines Scrn NEGATIVE (NEGATIVE) 01/25/17 03:00 U Cocaine Metab Screen NEGATIVE (NEGATIVE) 01/25/17 03:00 U Cannabinoids Screen NEGATIVE (NEGATIVE) 01/25/17 03:00 Ethyl Alcohol < 10 mg/dL (0-10) 01/25/17 01:48 RPR NONREACTIVE (NONREACTIVE) 01/25/17 01:48 HIV 1&2 Antibody Screen NEGATIVE (NEG) 01/26/17 05:02 - Physical Exam Vitals and I&O: Vital Signs Temp 98.6 F 02/01/17 04:00 Pulse 137 02/01/17 04:00 Resp 20 02/01/17 04:00 BP 127/86 02/01/17 04:00 Pulse Ox 99 02/01/17 04:00 Intake & Output 01/31/17 02/01/17 02/01/17 18:59 06:59 18:59 Intake Total 860 100 Output Total 1220 Balance -360 100 Intake: Intake, IV Amount 550 100 KCL 20mEq/100mL Premix 20 200 meq In 100 ml @ 50 mls/ hr IV Q2H [facility] Rx#: [id number] Vancomycin HCl 1 gm In 250 Sodium Chloride 0.9% 250 ml @ 165 mls/hr IV Q12H [facility] Rx#:[id number] metroNIDAZOLE 500mg/NS 100 100 100mL 500 mg In 100 ml @ 100 mls/hr IV Q8HR [facility] Rx #:[id number] Other 310 Output: Drainage 120 Left Lower Abdomen 120 Urine 800 Emesis 300 Other: # Bowel Movements 2 Active Medications: Current Medications Clonidine HCl (Catapres) 0.1 mg PO Q4H PRN PRN Reason: sbp >160 and diastolic >100 Stop: 03/31/17 16:11 Last Admin: 01/31/17 17:06 Dose: 0.1 mg Hydromorphone HCl (Dilaudid) 1 mg IVP Q3H PRN PRN Reason: MODERATE PAIN Stop: 03/26/17 17:55 Last Admin: 01/29/17 20:17 Dose: 1 mg Hydromorphone HCl (Dilaudid) 2 mg IVP Q3H PRN PRN Reason: SEVERE PAIN Stop: 03/26/17 17:56 Last Admin: 02/01/17 04:43 Dose: 2 mg Ceftriaxone Sodium 1 gm/ (Dextrose) 50 mls @ 100 mls/hr IV Q24H [facility] Stop: 03/27/17 20:59 Last Admin: 01/31/17 20:35 Dose: 100 mls/hr Metronidazole (Flagyl) 500 mg in 100 mls @ 100 mls/hr IV Q8HR [facility] Stop: 03/28/17 04:59 Last Admin: 02/01/17 04:48 Dose: 100 mls/hr Dextrose/Sodium Chloride (D5-0.45ns) 1,000 mls @ 50 mls/hr IV .Q20H [facility] Stop: 03/29/17 14:46 Last Admin: 01/29/17 12:14 Dose: 50 mls/hr Vancomycin HCl 1 gm/ Sodium (Chloride) 250 mls @ 165 mls/hr IV Q12H [facility] Stop: 04/01/17 00:00 Last Admin: 02/01/17 00:06 Dose: 165 mls/hr Amino Acids/ Fat Emulsion (Intravenous) 1,200 mls @ 40 mls/hr IV .Q24H [facility] Stop: 04/01/17 10:14 Last Admin: 01/31/17 13:09 Dose: 40 mls/hr Insulin Aspart (Novolog) 0 units SUBQ Q6HR [facility] PRN Reason: Protocol Stop: 03/28/17 08:59 Last Admin: 02/01/17 06:43 Dose: 10 units Lactobacillus Rhamnosus (Culturelle) 1 each PO DAILY [facility] Stop: 03/29/17 08:59 Last Admin: 02/01/17 08:08 Dose: Not Given Meperidine HCl (Demerol) 12.5 mg IVP Q2M PRN PRN Reason: POST-OP PAIN Stop: 03/27/17 19:19 Miscellaneous (Vancomycin Iv Per Pharmacy) 1 ea PRN [facility] Stop: 03/28/17 02:29 Miscellaneous (Probiotic Screen) 1 ea PRN PRN PRN Reason: PROTOCOL Stop: 03/28/17 13:21 Miscellaneous (Tpn Per Pharmacy) 1 ea PRN PRN PRN Reason: PROTOCOL Stop: 03/31/17 16:11 Ondansetron HCl (Zofran) 4 mg IV Q6H PRN PRN Reason: Nausea / Vomiting Stop: 03/26/17 16:27 Last Admin: 01/31/17 17:13 Dose: 4 mg Pantoprazole Sodium (Protonix) 40 mg IVP BID [facility] Stop: 04/01/17 16:59 Last Admin: 02/01/17 08:09 Dose: 40 mg - Procedures Procedures: Procedures Procedure Code Date BYPASS STOMACH TO JEJUNUM, OPEN APPROACH [id number] 01/25/17 FUSION OF STOMACH AND BOWEL 57371 01/25/17 REMOVAL OF GALLBLADDER 90805 01/25/17 REPAIR STOMACH, OPEN APPROACH [id number] 01/25/17 RESECTION OF GALLBLADDER, OPEN APPROACH [id number] 01/25/17 RESPIRATORY VENTILATION, LESS THAN 24 CONSECUTIVE HOURS [id number] 01/25/17 STOMACH SURGERY PROCEDURE 11746 01/25/17 VENT MGMT INPAT INIT DAY 36829 01/25/17 Assessment/Plan - Problem List Patient Problems: All Active Problems H/O diabetes mellitus (Acute) Z86.39 H/O drug abuse (Acute) Z87.898 H/O: HTN (hypertension) (Acute) Z86.79 UTI (urinary tract infection) (Acute) h/o dementia (Acute) r/o sepsis (Acute) s/p surgery (Acute) Nutritional Asmnt/Malnutr-PDOC - Dietary Evaluation Malnutrition Findings (Please click <Entered> for more info): Nutritional Asmnt/Malnutrition Start: 01/26/17 14: 32 Text: Status: Complete Freq: Document 01/26/17 14:32 GSUN (Rec: 01/26/17 14:51 GSUN [id number]) Nutritional Asmnt/Malnutrition Patient General Information Nutritional Screening Consult Diagnosis UTI, leukocytosis maybe reactive versus sepsis Pertinent Medical Hx/Surgical Hx HTN, DM, drug abuse, dementia Subjective Information 71 year old female, homeless. RD consult for BG >180. Pt was NPO at time of visit for CT abdomen/pelvis scan. Pt was agitated and in pain during visit. Pt refused to answer RD questions, repeatedly asked about bowel prep processes, then yelled at RD to leave. Pertinent Medications Dilaudid, Zofran Pertinent Labs 01/25: A1c 6, glucose 319H Nutritional Hx/Data Height 1.73 m Height (Calculated Centimeters) 172.7 Current Weight (lbs) 69.899 kg Weight (Calculated Kilograms) 69.9 Weight (Calculated Grams) 83501.6 [place] Body Weight 140lb Weight Status Approriate GI Symptoms Cultural/Ethnic/Buddhist Belief Unknown. Usual diet at home Unknown. Estimated Nutritional Goals BEE in Kcals: Using Current wt Calories/Kcals/Kg CBW 70kg Kcals Calculated 1750-2100kcal (25-30kcal/kg, ? possible sepsis) Protein: Using Current wt Protein Calculated 70g (1g/kg) Fluid: ml 1750-2100ml (1ml/kcal) Nutritional Problem 1. Problem Problem Altered nutrition related laboratory values related to Etiology DM aeb Signs/Symptoms: H&P, glucose 319H on adm Intervention/Recommendation Comments 1. NPO at time of visit. Diet advancement per MD, recommend [id number] to promtoe glycemic control. 2. Provide edu on DM as needed . Expected Outcomes/Goals Expected Outcomes/Goals 1. [place] to meet 100% of estimated nutritional needs.
--- NOTE | 2017-02-01 08:55 | General Progress Note ---
Subjective - Review of Systems Service Date: 02/01/17 Events since last encounter: no distress Subjective: pt transferd to icu at 5pm st tachycardic hypotensive Objective - Results Result Diagrams: 02/01/17 15:55 02/01/17 15:55 Recent Labs: Laboratory Last Values WBC 19.2 Th/cmm (4.8-10.8) H 01/31/17 05:40 RBC 3.35 Mil/cmm (3.80-5.20) L 01/31/17 05:40 Hgb 11.3 gm/dL (11.7-16.1) L 01/31/17 05:40 Hct 32.8 % (35.0-45.0) L 01/31/17 05:40 MCV 97.9 fl (81-100) 01/31/17 05:40 MCH 33.7 pg (27.0-31.0) H 01/31/17 05:40 MCHC Differential 34.5 pg (28.0-36.0) 01/31/17 05:40 RDW 12.3 % (11.5-20.0) 01/31/17 05:40 Plt Count 296 Th/cmm (150-400) 01/31/17 05:40 MPV 7.6 fl 01/31/17 05:40 Neutrophils % 75.1 % (40.0-80.0) 01/25/17 01:48 Band Neutrophils % 1 % (0-10) 01/31/17 05:40 Lymphocytes % 13.3 % (20.0-50.0) L 01/25/17 01:48 Monocytes % 10.0 % (2.0-10.0) 01/25/17 01:48 Eosinophils % 0.8 % (0.0-5.0) 01/25/17 01:48 Basophils % 0.8 % (0.0-2.0) 01/25/17 01:48 Neutrophils (Manual) 77 % (40-80) 01/31/17 05:40 Lymphocytes 8 % (20-50) L 01/31/17 05:40 Monocytes 12 % (2-10) H 01/31/17 05:40 Myelocytes 2 % 01/31/17 05:40 Platelet Estimate ADEQUATE (NORMAL) 01/31/17 05:40 Platelet Morphology NORMAL (NORMAL) 01/31/17 05:40 RBC Morph Micro Appear NORMAL (NORMAL) 01/31/17 05:40 PT 9.9 SECONDS (9.5-11.5) 01/25/17 01:48 INR 0.95 (0.5-1.4) 01/25/17 01:48 Specimen Source Arterial 01/27/17 09:13 Sample Site Right Radial 01/27/17 09:13 pH 7.36 (7.35-7.45) 01/27/17 09:13 pCO2 41.0 mmHg (35.0-45.0) 01/27/17 09:13 pO2 100.0 mmHg (80.0-100.0) 01/27/17 09:13 HCO3 23.2 mEq/L (20.0-26.0) 01/27/17 09:13 Base Excess -2.2 mEq/L (-3.0-3.0) 01/27/17 09:13 O2 Saturation 97.0 % (92.0-100.0) 01/27/17 09:13 Luther Test PASS 01/27/17 09:13 Vent Rate 13 01/27/17 09:13 Inspired O2 30 01/27/17 09:13 Tidal Volume 500 01/27/17 09:13 PEEP 5 01/27/17 09:13 Pressure (ins/psv/peep) N/A 01/26/17 21:00 Critical Value PW 01/27/17 09:13 Sodium 138 mEq/L (136-145) 02/01/17 06:55 Potassium 3.1 mEq/L (3.5-5.1) L 02/01/17 06:55 Chloride 106 mEq/L (98-107) 02/01/17 06:55 Carbon Dioxide 29.4 mEq/L (21.0-31.0) 02/01/17 06:55 Anion Gap 5.7 (7.0-16.0) L 02/01/17 06:55 BUN 25 mg/dL (7-25) 02/01/17 06:55 Creatinine 0.8 mg/dL (0.6-1.2) 02/01/17 06:55 Est GFR ( Amer) > 60.0 ml/min (>90) 02/01/17 06:55 Est GFR (Non-Af Amer) > 60.0 ml/min 02/01/17 06:55 BUN/Creatinine Ratio 31.3 02/01/17 06:55 Glucose 399 mg/dL (70-105) H 02/01/17 06:55 POC Glucose 364 MG/DL (70 - 105) H 02/01/17 06:08 Hemoglobin A1c % 6.0 % (4.0-6.0) 01/25/17 01:48 Whole Bld Lactic Acid 1.60 mmol/L (0.60-1.99) 01/25/17 02:12 Calcium 8.0 mg/dL (8.6-10.3) L 02/01/17 06:55 Phosphorus 4.4 mg/dL (2.5-5.0) 02/01/17 06:55 Magnesium 1.7 mg/dL (1.9-2.7) L 02/01/17 06:55 Total Bilirubin 0.4 mg/dL (0.3-1.0) 02/01/17 06:55 AST 7 U/L (13-39) L 02/01/17 06:55 ALT 8 U/L (7-52) 02/01/17 06:55 Alkaline Phosphatase 50 U/L (34-104) 02/01/17 06:55 Troponin I < 0.01 ng/mL (0.01-0.05) L 01/25/17 01:48 Total Protein 4.4 gm/dL (6.0-8.3) L 02/01/17 06:55 Albumin 2.3 gm/dL (3.7-5.3) L 02/01/17 06:55 Globulin 2.1 gm/dL 02/01/17 06:55 Albumin/Globulin Ratio 1.1 (1.0-1.8) 02/01/17 06:55 Triglycerides 98 mg/dL (<150) 01/25/17 01:48 Cholesterol 146 mg/dL (<200) 01/25/17 01:48 LDL Cholesterol Direct 37 mg/dL (75-193) L 01/25/17 01:48 HDL Cholesterol 83 mg/dL (23-92) 01/25/17 01:48 TSH 1.45 uIU/ml (0.34-5.60) 01/25/17 01:48 Urine Source CLEAN C 01/25/17 03:00 Urine Color YELLOW 01/25/17 03:00 Urine Clarity CLEAR (CLEAR) 01/25/17 03:00 Urine pH 5.5 01/25/17 03:00 Ur Specific [place] 1.010 (1.005-1.030) 01/25/17 03:00 Urine Protein NEGATIVE mg/dL (NEGATIVE) 01/25/17 03:00 Urine Glucose (UA) 500 mg/dL (NEGATIVE) H 01/25/17 03:00 Urine Ketones NEGATIVE mg/dL (NEGATIVE) 01/25/17 03:00 Urine Blood NEGATIVE (NEGATIVE) 01/25/17 03:00 Urine Nitrate POSITIVE (NEGATIVE) H 01/25/17 03:00 Urine Bilirubin NEGATIVE (NEGATIVE) 01/25/17 03:00 Urine Urobilinogen 1.0 E.U./dL (0.2 - 1.0) 01/25/17 03:00 Ur Leukocyte Esterase NEGATIVE (NEGATIVE) 01/25/17 03:00 Urine RBC 0-2 /hpf (0-5) 01/25/17 03:00 Urine WBC 10-25 /hpf (0-5) H 01/25/17 03:00 Ur Epithelial Cells OCCASIONAL /lpf (FEW) 01/25/17 03:00 Urine Bacteria MANY /hpf (NONE SEEN) 01/25/17 03:00 Vancomycin Trough 6.1 ug/mL (10-20) L 01/29/17 23:03 Salicylates < 25.0 mg/L (30.0-100.0) L 01/25/17 01:48 Urine Opiates Screen POSITIVE (NEGATIVE) H 01/25/17 03:00 Acetaminophen < 10.0 ug/mL (10.0-30.0) L 01/25/17 01:48 Ur Barbiturates Screen NEGATIVE (NEGATIVE) 01/25/17 03:00 Ur Phencyclidine Scrn NEGATIVE (NEGATIVE) 01/25/17 03:00 Amphetamines Screen POSITIVE (NEGATIVE) H 01/25/17 03:00 U Methamphetamines Scrn POSITIVE (NEGATIVE) H 01/25/17 03:00 U Benzodiazepines Scrn NEGATIVE (NEGATIVE) 01/25/17 03:00 U Cocaine Metab Screen NEGATIVE (NEGATIVE) 01/25/17 03:00 U Cannabinoids Screen NEGATIVE (NEGATIVE) 01/25/17 03:00 Ethyl Alcohol < 10 mg/dL (0-10) 01/25/17 01:48 RPR NONREACTIVE (NONREACTIVE) 01/25/17 01:48 HIV 1&2 Antibody Screen NEGATIVE (NEG) 01/26/17 05:02 - Physical Exam Vitals and I&O: Vital Signs Temp 98.6 F 02/01/17 04:00 Pulse 137 02/01/17 04:00 Resp 20 02/01/17 04:00 BP 127/86 02/01/17 04:00 Pulse Ox 99 02/01/17 04:00 Intake & Output 01/31/17 02/01/17 02/01/17 18:59 06:59 18:59 Intake Total 860 100 Output Total 1220 Balance -360 100 Intake: Intake, IV Amount 550 100 KCL 20mEq/100mL Premix 20 200 meq In 100 ml @ 50 mls/ hr IV Q2H [facility] Rx#: [id number] Vancomycin HCl 1 gm In 250 Sodium Chloride 0.9% 250 ml @ 165 mls/hr IV Q12H [facility] Rx#:[id number] metroNIDAZOLE 500mg/NS 100 100 100mL 500 mg In 100 ml @ 100 mls/hr IV Q8HR [facility] Rx #:[id number] Other 310 Output: Drainage 120 Left Lower Abdomen 120 Urine 800 Emesis 300 Other: # Bowel Movements 2 Active Medications: Current Medications Clonidine HCl (Catapres) 0.1 mg PO Q4H PRN PRN Reason: sbp >160 and diastolic >100 Stop: 03/31/17 16:11 Last Admin: 01/31/17 17:06 Dose: 0.1 mg Hydromorphone HCl (Dilaudid) 1 mg IVP Q3H PRN PRN Reason: MODERATE PAIN Stop: 03/26/17 17:55 Last Admin: 01/29/17 20:17 Dose: 1 mg Hydromorphone HCl (Dilaudid) 2 mg IVP Q3H PRN PRN Reason: SEVERE PAIN Stop: 03/26/17 17:56 Last Admin: 02/01/17 04:43 Dose: 2 mg Ceftriaxone Sodium 1 gm/ (Dextrose) 50 mls @ 100 mls/hr IV Q24H [facility] Stop: 03/27/17 20:59 Last Admin: 01/31/17 20:35 Dose: 100 mls/hr Metronidazole (Flagyl) 500 mg in 100 mls @ 100 mls/hr IV Q8HR [facility] Stop: 03/28/17 04:59 Last Admin: 02/01/17 04:48 Dose: 100 mls/hr Dextrose/Sodium Chloride (D5-0.45ns) 1,000 mls @ 50 mls/hr IV .Q20H [facility] Stop: 03/29/17 14:46 Last Admin: 01/29/17 12:14 Dose: 50 mls/hr Vancomycin HCl 1 gm/ Sodium (Chloride) 250 mls @ 165 mls/hr IV Q12H [facility] Stop: 04/01/17 00:00 Last Admin: 02/01/17 00:06 Dose: 165 mls/hr Amino Acids/ Fat Emulsion (Intravenous) 1,200 mls @ 40 mls/hr IV .Q24H [facility] Stop: 04/01/17 10:14 Last Admin: 01/31/17 13:09 Dose: 40 mls/hr Insulin Aspart (Novolog) 0 units SUBQ Q6HR [facility] PRN Reason: Protocol Stop: 03/28/17 08:59 Last Admin: 02/01/17 06:43 Dose: 10 units Lactobacillus Rhamnosus (Culturelle) 1 each PO DAILY [facility] Stop: 03/29/17 08:59 Last Admin: 02/01/17 08:08 Dose: Not Given Meperidine HCl (Demerol) 12.5 mg IVP Q2M PRN PRN Reason: POST-OP PAIN Stop: 03/27/17 19:19 Miscellaneous (Vancomycin Iv Per Pharmacy) 1 ea MC PRN [facility] Stop: 03/28/17 02:29 Miscellaneous (Probiotic Screen) 1 ea PRN PRN PRN Reason: PROTOCOL Stop: 03/28/17 13:21 Miscellaneous (Tpn Per Pharmacy) 1 ea PRN PRN PRN Reason: PROTOCOL Stop: 03/31/17 16:11 Ondansetron HCl (Zofran) 4 mg IV Q6H PRN PRN Reason: Nausea / Vomiting Stop: 03/26/17 16:27 Last Admin: 01/31/17 17:13 Dose: 4 mg Pantoprazole Sodium (Protonix) 40 mg IVP BID [facility] Stop: 04/01/17 16:59 Last Admin: 02/01/17 08:09 Dose: 40 mg General: No acute distress HEENT: Atraumatic Neck: Supple Cardiovascular: Regular rate Abdomen: Bowel sounds - Procedures Procedures: Procedures Procedure Code Date BYPASS STOMACH TO JEJUNUM, OPEN APPROACH [id number] 01/25/17 FUSION OF STOMACH AND BOWEL 39554 01/25/17 REMOVAL OF GALLBLADDER 56276 01/25/17 REPAIR STOMACH, OPEN APPROACH [id number] 01/25/17 RESECTION OF GALLBLADDER, OPEN APPROACH [id number] 01/25/17 RESPIRATORY VENTILATION, LESS THAN 24 CONSECUTIVE HOURS [id number] 01/25/17 STOMACH SURGERY PROCEDURE 06803 01/25/17 VENT MGMT INPAT INIT DAY 62044 01/25/17 Assessment/Plan - Problem List Patient Problems: All Active Problems H/O diabetes mellitus (Acute) Z86.39 H/O drug abuse (Acute) Z87.898 H/O: HTN (hypertension) (Acute) Z86.79 POSTCHOLECYSTECTOMY (Acute) UTI (urinary tract infection) (Acute) closeure og gastric perf (Acute) cplacement of new gj (Acute) h/o dementia (Acute) lysisi of adhesions (Acute) r/o sepsis (Acute) s/p surgery (Acute) septic shock (Acute) tachycardia (Acute) - Plan Plan: fluids iv antibiotics id/cardio consult ltac eval monitor vitals/diet labs cpm Nutritional Asmnt/Malnutr-PDOC - Dietary Evaluation Malnutrition Findings (Please click <Entered> for more info): Nutritional Asmnt/Malnutrition Start: 01/26/17 14: 32 Text: Status: Complete Freq: Document 01/26/17 14:32 GSUN (Rec: 01/26/17 14:51 GSUN [id number]) Nutritional Asmnt/Malnutrition Patient General Information Nutritional Screening Consult Diagnosis UTI, leukocytosis maybe reactive versus sepsis Pertinent Medical Hx/Surgical Hx HTN, DM, drug abuse, dementia Subjective Information 71 year old female, homeless. RD consult for BG >180. Pt was NPO at time of visit for CT abdomen/pelvis scan. Pt was agitated and in pain during visit. Pt refused to answer RD questions, repeatedly asked about bowel prep processes, then yelled at RD to leave. Pertinent Medications Dilaudid, Zofran Pertinent Labs 01/25: A1c 6, glucose 319H Nutritional Hx/Data Height 1.73 m Height (Calculated Centimeters) 172.7 Current Weight (lbs) 69.899 kg Weight (Calculated Kilograms) 69.9 Weight (Calculated Grams) 30169.6 [place] Body Weight 140lb Weight Status Approriate GI Symptoms Cultural/Ethnic/Jewish Belief Unknown. Usual diet at home Unknown. Estimated Nutritional Goals BEE in Kcals: Using Current wt Calories/Kcals/Kg CBW 70kg Kcals Calculated 1750-2100kcal (25-30kcal/kg, ? possible sepsis) Protein: Using Current wt Protein Calculated 70g (1g/kg) Fluid: ml 1750-2100ml (1ml/kcal) Nutritional Problem 1. Problem Problem Altered nutrition related laboratory values related to Etiology DM aeb Signs/Symptoms: H&P, glucose 319H on adm Intervention/Recommendation Comments 1. NPO at time of visit. Diet advancement per MD, recommend [id number] to promtoe glycemic control. 2. Provide edu on DM as needed . Expected Outcomes/Goals Expected Outcomes/Goals 1. [place] to meet 100% of estimated nutritional needs.
[2017-02-01] MEDS ORDERED: KCL 20mEq/100mL Premix 20 MEQ/100 ML PIGGYBACK IV ONE (09:04)
[2017-02-01] MEDS: Diltiazem 5 mg/mL 5mL Vial IVP PRN (09:20)
--- NOTE | 2017-02-01 14:23 | Infectious Disease Prog Note ---
Infectious Disease Subjective - Review of Systems Service Date: 02/01/17 Subjective: Doing well. Rt IJ is coming out. Infectious Disease Objective - Results Result Diagrams: 01/31/17 05:40 02/01/17 06:55 Recent Labs: Laboratory Last Values WBC 19.2 Th/cmm (4.8-10.8) H 01/31/17 05:40 RBC 3.35 Mil/cmm (3.80-5.20) L 01/31/17 05:40 Hgb 11.3 gm/dL (11.7-16.1) L 01/31/17 05:40 Hct 32.8 % (35.0-45.0) L 01/31/17 05:40 MCV 97.9 fl (81-100) 01/31/17 05:40 MCH 33.7 pg (27.0-31.0) H 01/31/17 05:40 MCHC Differential 34.5 pg (28.0-36.0) 01/31/17 05:40 RDW 12.3 % (11.5-20.0) 01/31/17 05:40 Plt Count 296 Th/cmm (150-400) 01/31/17 05:40 MPV 7.6 fl 01/31/17 05:40 Neutrophils % 75.1 % (40.0-80.0) 01/25/17 01:48 Band Neutrophils % 1 % (0-10) 01/31/17 05:40 Lymphocytes % 13.3 % (20.0-50.0) L 01/25/17 01:48 Monocytes % 10.0 % (2.0-10.0) 01/25/17 01:48 Eosinophils % 0.8 % (0.0-5.0) 01/25/17 01:48 Basophils % 0.8 % (0.0-2.0) 01/25/17 01:48 Neutrophils (Manual) 77 % (40-80) 01/31/17 05:40 Lymphocytes 8 % (20-50) L 01/31/17 05:40 Monocytes 12 % (2-10) H 01/31/17 05:40 Myelocytes 2 % 01/31/17 05:40 Platelet Estimate ADEQUATE (NORMAL) 01/31/17 05:40 Platelet Morphology NORMAL (NORMAL) 01/31/17 05:40 RBC Morph Micro Appear NORMAL (NORMAL) 01/31/17 05:40 PT 9.9 SECONDS (9.5-11.5) 01/25/17 01:48 INR 0.95 (0.5-1.4) 01/25/17 01:48 Specimen Source Arterial 01/27/17 09:13 Sample Site Right Radial 01/27/17 09:13 pH 7.36 (7.35-7.45) 01/27/17 09:13 pCO2 41.0 mmHg (35.0-45.0) 01/27/17 09:13 pO2 100.0 mmHg (80.0-100.0) 01/27/17 09:13 HCO3 23.2 mEq/L (20.0-26.0) 01/27/17 09:13 Base Excess -2.2 mEq/L (-3.0-3.0) 01/27/17 09:13 O2 Saturation 97.0 % (92.0-100.0) 01/27/17 09:13 Luther Test PASS 01/27/17 09:13 Vent Rate 13 01/27/17 09:13 Inspired O2 30 01/27/17 09:13 Tidal Volume 500 01/27/17 09:13 PEEP 5 01/27/17 09:13 Pressure (ins/psv/peep) N/A 01/26/17 21:00 Critical Value PW 01/27/17 09:13 Sodium 138 mEq/L (136-145) 02/01/17 06:55 Potassium 3.1 mEq/L (3.5-5.1) L 02/01/17 06:55 Chloride 106 mEq/L (98-107) 02/01/17 06:55 Carbon Dioxide 29.4 mEq/L (21.0-31.0) 02/01/17 06:55 Anion Gap 5.7 (7.0-16.0) L 02/01/17 06:55 BUN 25 mg/dL (7-25) 02/01/17 06:55 Creatinine 0.8 mg/dL (0.6-1.2) 02/01/17 06:55 Est GFR ( Amer) > 60.0 ml/min (>90) 02/01/17 06:55 Est GFR (Non-Af Amer) > 60.0 ml/min 02/01/17 06:55 BUN/Creatinine Ratio 31.3 02/01/17 06:55 Glucose 399 mg/dL (70-105) H 02/01/17 06:55 POC Glucose 367 MG/DL (70 - 105) H 02/01/17 12:11 Hemoglobin A1c % 6.0 % (4.0-6.0) 01/25/17 01:48 Whole Bld Lactic Acid 3.35 mmol/L (0.60-1.99) H* 02/01/17 11:20 Calcium 8.0 mg/dL (8.6-10.3) L 02/01/17 06:55 Phosphorus 4.4 mg/dL (2.5-5.0) 02/01/17 06:55 Magnesium 1.7 mg/dL (1.9-2.7) L 02/01/17 06:55 Total Bilirubin 0.4 mg/dL (0.3-1.0) 02/01/17 06:55 AST 7 U/L (13-39) L 02/01/17 06:55 ALT 8 U/L (7-52) 02/01/17 06:55 Alkaline Phosphatase 50 U/L (34-104) 02/01/17 06:55 Troponin I < 0.01 ng/mL (0.01-0.05) L 01/25/17 01:48 Total Protein 4.4 gm/dL (6.0-8.3) L 02/01/17 06:55 Albumin 2.3 gm/dL (3.7-5.3) L 02/01/17 06:55 Globulin 2.1 gm/dL 02/01/17 06:55 Albumin/Globulin Ratio 1.1 (1.0-1.8) 02/01/17 06:55 Triglycerides 98 mg/dL (<150) 01/25/17 01:48 Cholesterol 146 mg/dL (<200) 01/25/17 01:48 LDL Cholesterol Direct 37 mg/dL (75-193) L 01/25/17 01:48 HDL Cholesterol 83 mg/dL (23-92) 01/25/17 01:48 TSH 1.45 uIU/ml (0.34-5.60) 01/25/17 01:48 Urine Source CLEAN C 01/25/17 03:00 Urine Color YELLOW 01/25/17 03:00 Urine Clarity CLEAR (CLEAR) 01/25/17 03:00 Urine pH 5.5 01/25/17 03:00 Ur Specific [place] 1.010 (1.005-1.030) 01/25/17 03:00 Urine Protein NEGATIVE mg/dL (NEGATIVE) 01/25/17 03:00 Urine Glucose (UA) 500 mg/dL (NEGATIVE) H 01/25/17 03:00 Urine Ketones NEGATIVE mg/dL (NEGATIVE) 01/25/17 03:00 Urine Blood NEGATIVE (NEGATIVE) 01/25/17 03:00 Urine Nitrate POSITIVE (NEGATIVE) H 01/25/17 03:00 Urine Bilirubin NEGATIVE (NEGATIVE) 01/25/17 03:00 Urine Urobilinogen 1.0 E.U./dL (0.2 - 1.0) 01/25/17 03:00 Ur Leukocyte Esterase NEGATIVE (NEGATIVE) 01/25/17 03:00 Urine RBC 0-2 /hpf (0-5) 01/25/17 03:00 Urine WBC 10-25 /hpf (0-5) H 01/25/17 03:00 Ur Epithelial Cells OCCASIONAL /lpf (FEW) 01/25/17 03:00 Urine Bacteria MANY /hpf (NONE SEEN) 01/25/17 03:00 Vancomycin Trough 6.1 ug/mL (10-20) L 01/29/17 23:03 Salicylates < 25.0 mg/L (30.0-100.0) L 01/25/17 01:48 Urine Opiates Screen POSITIVE (NEGATIVE) H 01/25/17 03:00 Acetaminophen < 10.0 ug/mL (10.0-30.0) L 01/25/17 01:48 Ur Barbiturates Screen NEGATIVE (NEGATIVE) 01/25/17 03:00 Ur Phencyclidine Scrn NEGATIVE (NEGATIVE) 01/25/17 03:00 Amphetamines Screen POSITIVE (NEGATIVE) H 01/25/17 03:00 U Methamphetamines Scrn POSITIVE (NEGATIVE) H 01/25/17 03:00 U Benzodiazepines Scrn NEGATIVE (NEGATIVE) 01/25/17 03:00 U Cocaine Metab Screen NEGATIVE (NEGATIVE) 01/25/17 03:00 U Cannabinoids Screen NEGATIVE (NEGATIVE) 01/25/17 03:00 Ethyl Alcohol < 10 mg/dL (0-10) 03/21/17 01:48 RPR NONREACTIVE (NONREACTIVE) 01/25/17 01:48 HIV 1&2 Antibody Screen NEGATIVE (NEG) 01/26/17 05:02 - Physical Exam Vitals and I&O: Vital Signs Temp 97.8 F 02/01/17 08:00 Pulse 130 02/01/17 10:20 Resp 16 02/01/17 09:00 BP 120/66 02/01/17 08:00 Pulse Ox 96 02/01/17 09:00 Intake & Output 01/31/17 02/01/17 02/01/17 18:59 06:59 18:59 Intake Total 860 450 Output Total 1220 Balance -360 450 Intake: Intake, IV Amount 550 450 KCL 20mEq/100mL Premix 20 200 meq In 100 ml @ 50 mls/ hr IV Q2H [facility] Rx#: [id number] Vancomycin HCl 1 gm In 250 250 Sodium Chloride 0.9% 250 ml @ 165 mls/hr IV Q12H [facility] Rx#:[id number] metroNIDAZOLE 500mg/NS 100 200 100mL 500 mg In 100 ml @ 100 mls/hr IV Q8HR [facility] Rx #:[id number] Other 310 Output: Drainage 120 Left Lower Abdomen 120 Urine 800 Emesis 300 Other: # Bowel Movements 2 Active Medications: Current Medications Clonidine HCl (Catapres) 0.1 mg PO Q4H PRN PRN Reason: sbp >160 and diastolic >100 Stop: 03/31/17 16:11 Last Admin: 01/31/17 17:06 Dose: 0.1 mg Diltiazem HCl (Cardizem) 20 mg IVP Q4HR PRN PRN Reason: HR>120 Stop: 04/02/17 08:57 Last Admin: 02/01/17 09:20 Dose: 20 mg Enalaprilat (Vasotec) 2.5 mg IVP Q4HR PRN PRN Reason: systolic BP >160 Stop: 04/02/17 11:33 Hydromorphone HCl (Dilaudid) 1 mg IVP Q3H PRN PRN Reason: MODERATE PAIN Stop: 03/26/17 17:55 Last Admin: 01/29/17 20:17 Dose: 1 mg Hydromorphone HCl (Dilaudid) 2 mg IVP Q3H PRN PRN Reason: SEVERE PAIN Stop: 03/26/17 17:56 Last Admin: 02/01/17 12:24 Dose: 2 mg Ceftriaxone Sodium 1 gm/ (Dextrose) 50 mls @ 100 mls/hr IV Q24H [facility] Stop: 03/27/17 20:59 Last Admin: 01/31/17 20:35 Dose: 100 mls/hr Metronidazole (Flagyl) 500 mg in 100 mls @ 100 mls/hr IV Q8HR [facility] Stop: 03/28/17 04:59 Last Admin: 02/01/17 13:52 Dose: 100 mls/hr Dextrose/Sodium Chloride (D5-0.45ns) 1,000 mls @ 50 mls/hr IV .Q20H [facility] Stop: 03/29/17 14:46 Last Admin: 01/29/17 12:14 Dose: 50 mls/hr Vancomycin HCl 1 gm/ Sodium (Chloride) 250 mls @ 165 mls/hr IV Q12H [facility] Stop: 04/01/17 00:00 Last Admin: 02/01/17 12:20 Dose: 165 mls/hr Amino Acids/ Fat Emulsion (Intravenous) 1,200 mls @ 40 mls/hr IV .Q24H [facility] Stop: 04/01/17 10:14 Last Admin: 01/31/17 13:09 Dose: 40 mls/hr Insulin Aspart (Novolog) 0 units SUBQ Q6HR [facility] PRN Reason: Protocol Stop: 03/28/17 08:59 Last Admin: 02/01/17 12:19 Dose: 10 units Lactobacillus Rhamnosus (Culturelle) 1 each PO DAILY [facility] Stop: 03/29/17 08:59 Last Admin: 02/01/17 08:08 Dose: Not Given Meperidine HCl (Demerol) 12.5 mg IVP Q2M PRN PRN Reason: POST-OP PAIN Stop: 03/27/17 19:19 Miscellaneous (Vancomycin Iv Per Pharmacy) 1 ea MC PRN [facility] Stop: 03/28/17 02:29 Miscellaneous (Probiotic Screen) 1 ea PRN PRN PRN Reason: PROTOCOL Stop: 03/28/17 13:21 Miscellaneous (Tpn Per Pharmacy) 1 ea PRN PRN PRN Reason: PROTOCOL Stop: 03/31/17 16:11 Ondansetron HCl (Zofran) 4 mg IV Q6H PRN PRN Reason: Nausea / Vomiting Stop: 03/26/17 16:27 Last Admin: 01/31/17 17:13 Dose: 4 mg Pantoprazole Sodium (Protonix) 40 mg IVP BID [facility] Stop: 04/01/17 16:59 Last Admin: 02/01/17 08:09 Dose: 40 mg General: no acute distress, well developed, well nourished HEENT: atraumatic, normocephalic, PERRLA Neck: supple, no thyromegaly, no lymphadenopathy Cardiovascular: S1S2 Lungs: clear to auscultation bilaterally, clear to percussion Abdomen: soft, no tender, no distended Extremities: no cyanosis, no clubbing, no edema Neurological: awake, alert, oriented Skin: intact - Procedures Procedures: Procedures Procedure Code Date BYPASS STOMACH TO JEJUNUM, OPEN APPROACH [id number] 01/25/17 FUSION OF STOMACH AND BOWEL 20007 01/25/17 REMOVAL OF GALLBLADDER 45621 01/25/17 REPAIR STOMACH, OPEN APPROACH [id number] 01/25/17 RESECTION OF GALLBLADDER, OPEN APPROACH [id number] 01/25/17 RESPIRATORY VENTILATION, LESS THAN 24 CONSECUTIVE HOURS [id number] 01/25/17 STOMACH SURGERY PROCEDURE 01938 01/25/17 VENT MGMT INPAT INIT DAY 27237 01/25/17 Infectious Disease Assmt/Plan - Problem List Patient Problems: All Active Problems H/O diabetes mellitus (Acute) Z86.39 H/O drug abuse (Acute) Z87.898 H/O: HTN (hypertension) (Acute) Z86.79 UTI (urinary tract infection) (Acute) h/o dementia (Acute) r/o sepsis (Acute) s/p surgery (Acute) - Assessment Assessment: 1. Peritonitis. 2. Gastric bypass perforation. 3. S/p exploratory lap and repair anastomotic leak/ perforation. 4. UTI. 5. Leukocytosis worse with candidemia. 6. malposition of central line. - Plan Plan: Continue Ceftriaxone and flagyl. continue vanco iv. check lactic acid and blood cultures. Nutritional Asmnt/Malnutr-PDOC - Dietary Evaluation Malnutrition Findings (Please click <Entered> for more info): Nutritional Asmnt/Malnutrition Start: 01/26/17 14: 32 Text: Status: Complete Freq: Document 01/26/17 14:32 GSUN (Rec: 01/26/17 14:51 GSUN [id number]) Nutritional Asmnt/Malnutrition Patient General Information Nutritional Screening Consult Diagnosis UTI, leukocytosis maybe reactive versus sepsis Pertinent Medical Hx/Surgical Hx HTN, DM, drug abuse, dementia Subjective Information 71 year old female, homeless. RD consult for BG >180. Pt was NPO at time of visit for CT abdomen/pelvis scan. Pt was agitated and in pain during visit. Pt refused to answer RD questions, repeatedly asked about bowel prep processes, then yelled at RD to leave. Pertinent Medications Dilaudid, Zofran Pertinent Labs 01/25: A1c 6, glucose 319H Nutritional Hx/Data Height 1.73 m Height (Calculated Centimeters) 172.7 Current Weight (lbs) 69.899 kg Weight (Calculated Kilograms) 69.9 Weight (Calculated Grams) 01690.6 [place] Body Weight 140lb Weight Status Approriate GI Symptoms Cultural/Ethnic/[employer] Belief Unknown. Usual diet at home Unknown. Estimated Nutritional Goals BEE in Kcals: Using Current wt Calories/Kcals/Kg CBW 70kg Kcals Calculated 1750-2100kcal (25-30kcal/kg, ? possible sepsis) Protein: Using Current wt Protein Calculated 70g (1g/kg) Fluid: ml 1750-2100ml (1ml/kcal) Nutritional Problem 1. Problem Problem Altered nutrition related laboratory values related to Etiology DM aeb Signs/Symptoms: H&P, glucose 319H on adm Intervention/Recommendation Comments 1. NPO at time of visit. Diet advancement per MD, recommend [id number] to promtoe glycemic control. 2. Provide edu on DM as needed . Expected Outcomes/Goals Expected Outcomes/Goals 1. [place] to meet 100% of estimated nutritional needs.
[2017-02-01 16:19] LABS: MEAN CELL VOLUME 97.9 fl (81-100); MEAN CORPUSCULAR HGB CONC 34.8 pg (28.0-36.0); MEAN PLATELET VOLUME 7.8 fl; PLATELET COUNT 295 Th/cmm (150-400); RED BLOOD COUNT 3.93 Mil/cmm (3.80-5.20); RED CELL DISTRIBUTION WIDTH 12.3 % (11.5-20.0)
[2017-02-01 16:29] LABS: ALB/GLOB RATIO 1.2 (1.0-1.8); ANION GAP 6.2 (7.0-16.0); BILIRUBIN,TOTAL 0.4 mg/dL (0.3-1.0); CALCIUM SERUM 7.8 mg/dL (8.6-10.3); CARBON DIOXIDE 25.5 mEq/L (21.0-31.0); CREATININE - SERUM 1.5 mg/dL (0.6-1.2); POTASSIUM SERUM 3.7 mEq/L (3.5-5.1)
[2017-02-01 16:39] LABS: HEMOGLOBIN 13.4 gm/dL (11.7-16.1); WHITE BLOOD COUNT 37.6 Th/cmm (4.8-10.8)
[2017-02-01] MEDS: Fluconazole 400mg/200mL 400 MG/200 ML BAG IV SCH (17:14)
[2017-02-01] MEDS: Sodium Chloride 0.9% 1,000 ML IV SCH (17:45)
[2017-02-01 18:14] LABS: TOTAL CELLS COUNTED 100
[2017-02-01 18:23] LABS: BAND NEUTROPHILE 17 % (0-10); BASOPHIL 0 % (0-3); EOSINOPHIL 0 % (0-5); NEUTROPHILS 74 % (40-80)
[2017-02-01 18:24] LABS: PLATELET ESTIMATE ADEQUATE (NORMAL); PLATELET MORPHOLOGY NORMAL (NORMAL)
[2017-02-01 18:25] LABS: HEMATOCRIT 38.5 % (35.0-45.0)
[2017-02-01] MEDS ORDERED: Sodium Chloride 0.9% 1,000 ML IV ONE (21:49)
[2017-02-02] MEDS: HYDROmorphone 2 mg/mL 1mL Vial IVP PRN ×2 (03:40→21:09)
[2017-02-02] MEDS: metroNIDAZOLE 500mg/NS 100mL 500 MG/100 ML BAG IV SCH ×2 (05:00→13:39)
[2017-02-02 05:15] LABS: HEMOGLOBIN 12.7 gm/dL (11.7-16.1); MEAN PLATELET VOLUME 8.2 fl
[2017-02-02 05:29] LABS: MEAN CELL VOLUME 98.9 fl (81-100); MEAN CORPUSCULAR HEMOGLOBIN 34.8 pg (27.0-31.0); MEAN CORPUSCULAR HGB CONC 35.2 pg (28.0-36.0); PLATELET COUNT 249 Th/cmm (150-400); RED BLOOD COUNT 3.64 Mil/cmm (3.80-5.20); RED CELL DISTRIBUTION WIDTH 12.5 % (11.5-20.0)
[2017-02-02 05:48] LABS: BILIRUBIN,TOTAL 0.6 mg/dL (0.3-1.0); BUN/CREATININE RATIO 14.6; CALCIUM SERUM 7.7 mg/dL (8.6-10.3); CARBON DIOXIDE 24.3 mEq/L (21.0-31.0); CREATININE - SERUM 2.4 mg/dL (0.6-1.2); MAGNESIUM 1.7 mg/dL (1.9-2.7); PHOSPHOROUS 5.5 mg/dL (2.5-5.0); POTASSIUM SERUM 4.3 mEq/L (3.5-5.1)
[2017-02-02] MEDS: Sodium Chloride 0.9% 1,000 ML IV SCH (05:55)
[2017-02-02] MEDS: INSULIN ASPART, RECOMBINANT 100 UNITS/ML SUBQ SCH ×5 (07:18→17:07)
[2017-02-02] MEDS: Lactobacillus Rhamnosus 10 Billion CFU Capsule PO SCH (08:56)
[2017-02-02] MEDS: HYDROmorphone 1 mg/mL 1mL Syr IVP PRN (09:14)
--- NOTE | 2017-02-02 09:20 | Diagnostic Imaging Report ---
CHEST X-RAY: AP view INDICATION: Pneumonia COMPARISON: 02/01/2017 FINDINGS: No focal consolidation or effusions. Heart size is normal. Old left rib fractures are noted. No evidence of pneumothorax. IMPRESSION: No focal airspace consolidation identified.
--- NOTE | 2017-02-02 09:21 | Diagnostic Imaging Report ---
CHEST X-RAY: AP view INDICATION: Sepsis COMPARISON: Chest x-ray 01/26/2017 FINDINGS: Right basal subsegmental atelectasis is noted. No focal consolidation identified. There has been interval removal of the ET tube, NG tube and right IJ line. Heart size is normal. Atherosclerosis is noted. IMPRESSION: Interval removal of the ET tube, NG tube and right IJ line. Right basal subsegmental atelectasis. No focal consolidation identified.
[2017-02-02 09:45] LABS: URINE BILIRUBIN SMALL (NEGATIVE); URINE BLOOD LARGE (NEGATIVE); URINE COLOR BROWN; URINE GLUCOSE (UA) NEGATIVE (NEGATIVE); URINE KETONE NEGATIVE (NEGATIVE); URINE PROTEIN >300 mg/dL (NEGATIVE)
[2017-02-02 09:46] LABS: URINE UROBILINOGEN 0.2 E.U./dL (0.2 - 1.0)
[2017-02-02 09:59] LABS: URINE RBC 50-100 /hpf (0-5)
[2017-02-02 10:00] LABS: URINE AMORPHOUS SEDIMENT MANY URATES (NONE SEEN); URINE BACTERIA MODERATE /hpf (NONE SEEN); URINE EPITHELIAL CELLS MODERATE /lpf (FEW)
[2017-02-02 10:03] LABS: BAND NEUTROPHILE 9 % (0-10); BASOPHIL 1 % (0-3); METAMYELOCYTE 2 % (0-0); NEUTROPHILS 78 % (40-80); TOTAL CELLS COUNTED 100
[2017-02-02 10:04] LABS: PLATELET ESTIMATE ADEQUATE (NORMAL); PLATELET MORPHOLOGY NORMAL (NORMAL)
--- NOTE | 2017-02-02 10:33 | Diagnostic Imaging Report ---
Renal ultrasound HISTORY: Acute renal failure COMPARISON: None Technique: Sonography of the kidneys and urinary bladder was performed in multiple planes. FINDINGS: The right kidney measures 9.7 x 5.4 cm. No evidence of focal lesions or hydronephrosis. The left kidney measures 10.2 x 5 cm. No evidence of focal lesions or hydronephrosis. The urinary bladder is collapsed containing a Newton catheter, limiting its evaluation. IMPRESSION: No evidence of hydronephrosis.
--- NOTE | 2017-02-02 12:48 | Diagnostic Imaging Report ---
CT abdomen and pelvis without intravenous contrast Indication: Abdominal pain, rule out abscess Comparison: CT abdomen and pelvis on 01/26/2017, Technique: Axial images were obtained from the lung bases to the bilateral proximal femurs without IV contrast. Coronal reconstructions were made. total DLP: 533, CTDI9.5 FINDINGS: Bibasal atelectatic changes are seen with small bilateral effusions left larger right and bibasal infiltrates and consolidative changes. Assessment of the solid organs is limited due to lack of IV contrast. Cirrhotic changes of the liver are noted. No focal lesions. Moderate amount of perihepatic fluid is noted. There is also a large loculated fluid collection which extends from the left upper quadrant to the left lower abdomen and measuring 17.5 cm greatest craniocaudal x 9.2 cm greatest transverse dimension. Pockets of gas are seen along the superior aspect of this fluid collection. Additional small amount of fluid and smaller collections are seen tracking down the paracolic gutters bilaterally into the pelvis with small amount of fluid noted in the pelvis also. Inflammatory changes of the mesenteric region are noted. A small fat-containing ventral hernia is seen containing a fluid along the upper abdomen. Postsurgical changes are seen within the stomach and multiple small bowel loops with evidence of prior gastric bypass surgery. Few 2 pockets of free air are noted along the upper abdomen adjacent to patient's gastric bypass. Overall the amount of free air has markedly decreased since prior examination. A Newton catheter seen within collapsed urinary bladder. The appendix is not visualized. Oral contrast from previous procedure is seen primarily within the right colon. Anasarca is noted. Degenerative changes of the spine and pelvis are noted. Anasarca is noted. IMPRESSION: Large loculated appearing fluid collection along the left lateral hemiabdomen extending from the left side subdiaphragmatic region inferiorly. Findings may represent a large abscess. Pockets of gas are seen along the upper nondependent portion of this collection. Clinical correlation and follow-up is recommended. Note exam is limited due to lack of IV contrast Additional perihepatic fluid collection noted. A small amount of free abdominal air is noted along the upper abdomen adjacent to patient's gastric bypass site. Overall the amount of free air has markedly decreased since previous examination. Clinical correlation and continued follow-up is recommended. Additional small amount of fluid fluid and small fluid collections tracking down the bilateral paracolic gutter regions and into the pelvis. Inflammatory changes and small amount of fluid in the mesentery Postsurgical changes including evidence of gastric bypass surgery and postsurgical changes within small bowel loops. Bilateral effusions, left larger right ,with bibasal consolidative changes. Anasarca Atherosclerotic vascular disease.
--- NOTE | 2017-02-02 13:57 | General Progress Note ---
Subjective - Review of Systems Service Date: 02/02/17 Subjective: still w/ abd. pain Objective - Results Result Diagrams: 02/02/17 04:19 02/02/17 04:19 Recent Labs: Laboratory Last Values WBC 42.0 Th/cmm (4.8-10.8) H* 02/02/17 04:19 RBC 3.64 Mil/cmm (3.80-5.20) L 02/02/17 04:19 Hgb 12.7 gm/dL (11.7-16.1) 02/02/17 04:19 Hct 36.0 % (35.0-45.0) 02/02/17 04:19 MCV 98.9 fl (81-100) 02/02/17 04:19 MCH 34.8 pg (27.0-31.0) H 02/02/17 04:19 MCHC Differential 35.2 pg (28.0-36.0) 02/02/17 04:19 RDW 12.5 % (11.5-20.0) 02/02/17 04:19 Plt Count 249 Th/cmm (150-400) 02/02/17 04:19 MPV 8.2 fl 02/02/17 04:19 Neutrophils % [employer] 02/01/17 15:55 Band Neutrophils % 9 % (0-10) 02/02/17 04:19 Lymphocytes % [employer] 02/01/17 15:55 Monocytes % [employer]PER[employer]NO[employer] 02/01/17 15:55 Eosinophils % 0.8 % (0.0-5.0) 01/25/17 01:48 Basophils % [employer] 02/01/17 15:55 Neutrophils (Manual) 78 % (40-80) 02/02/17 04:19 Lymphocytes 6 % (20-50) L 02/02/17 04:19 Monocytes 4 % (2-10) 02/02/17 04:19 Eosinophils 0 % (0-5) 02/01/17 15:55 Basophils 1 % (0-3) 02/02/17 04:19 Metamyelocytes 2 % (0-0) H 02/02/17 04:19 Myelocytes 2 % 01/31/17 05:40 Platelet Estimate ADEQUATE (NORMAL) 02/02/17 04:19 Platelet Morphology NORMAL (NORMAL) 02/02/17 04:19 RBC Morph Micro Appear NORMAL (NORMAL) 02/02/17 04:19 Eos Smear Source URINE 02/02/17 06:00 Eos Smear Total Cells NONE SEEN (NONE SEEN) 02/02/17 06:00 PT 9.9 SECONDS (9.5-11.5) 01/25/17 01:48 INR 0.95 (0.5-1.4) 01/25/17 01:48 Specimen Source Arterial 01/27/17 09:13 Sample Site Right Radial 01/27/17 09:13 pH 7.36 (7.35-7.45) 01/27/17 09:13 pCO2 41.0 mmHg (35.0-45.0) 01/27/17 09:13 pO2 100.0 mmHg (80.0-100.0) 01/27/17 09:13 HCO3 23.2 mEq/L (20.0-26.0) 01/27/17 09:13 Base Excess -2.2 mEq/L (-3.0-3.0) 01/27/17 09:13 O2 Saturation 97.0 % (92.0-100.0) 01/27/17 09:13 Luther Test PASS 01/27/17 09:13 Vent Rate 13 01/27/17 09:13 Inspired O2 30 01/27/17 09:13 Tidal Volume 500 01/27/17 09:13 PEEP 5 01/27/17 09:13 Pressure (ins/psv/peep) N/A 01/26/17 21:00 Critical Value PW 01/27/17 09:13 Sodium 144 mEq/L (136-145) 02/02/17 04:19 Potassium 4.3 mEq/L (3.5-5.1) 02/02/17 04:19 Chloride 110 mEq/L (98-107) H 02/02/17 04:19 Carbon Dioxide 24.3 mEq/L (21.0-31.0) 02/02/17 04:19 Anion Gap 14.0 (7.0-16.0) 02/02/17 04:19 BUN 35 mg/dL (7-25) H 02/02/17 04:19 Creatinine 2.4 mg/dL (0.6-1.2) H 02/02/17 04:19 Est GFR ( Amer) 25.7 ml/min (>90) 02/02/17 04:19 Est GFR (Non-Af Amer) 21.3 ml/min 02/02/17 04:19 BUN/Creatinine Ratio 14.6 02/02/17 04:19 Glucose 215 mg/dL (70-105) H 02/02/17 04:19 POC Glucose 219 MG/DL (70 - 105) H 02/02/17 12:27 Hemoglobin A1c % 6.0 % (4.0-6.0) 01/25/17 01:48 Whole Bld Lactic Acid 3.47 mmol/L (0.60-1.99) H* 02/01/17 17:55 Uric Acid 4.4 mg/dL (2.3-6.6) 02/02/17 04:19 Calcium 7.7 mg/dL (8.6-10.3) L 02/02/17 04:19 Phosphorus 5.5 mg/dL (2.5-5.0) H 02/02/17 04:19 Magnesium 1.7 mg/dL (1.9-2.7) L 02/02/17 04:19 Total Bilirubin 0.6 mg/dL (0.3-1.0) 02/02/17 04:19 AST 9 U/L (13-39) L 02/02/17 04:19 ALT 8 U/L (7-52) 02/02/17 04:19 Alkaline Phosphatase 43 U/L (34-104) 02/02/17 04:19 Troponin I < 0.01 ng/mL (0.01-0.05) L 01/25/17 01:48 Total Protein 4.0 gm/dL (6.0-8.3) L 02/02/17 04:19 Albumin 2.0 gm/dL (3.7-5.3) L 02/02/17 04:19 Globulin 2.0 gm/dL 02/02/17 04:19 Albumin/Globulin Ratio 1.0 (1.0-1.8) 02/02/17 04:19 Triglycerides 98 mg/dL (<150) 01/25/17 01:48 Cholesterol 146 mg/dL (<200) 01/25/17 01:48 LDL Cholesterol Direct 37 mg/dL (75-193) L 01/25/17 01:48 HDL Cholesterol 83 mg/dL (23-92) 01/25/17 01:48 TSH 1.45 uIU/ml (0.34-5.60) 01/25/17 01:48 Urine Source RANDOM 02/02/17 06:00 Urine Color BROWN 02/02/17 06:00 Urine Clarity SL. CLOUDY (CLEAR) 02/02/17 06:00 Urine pH 6.0 02/02/17 06:00 Ur Specific [place] 1.025 (1.005-1.030) 02/02/17 06:00 Urine Protein >300 mg/dL (NEGATIVE) H 02/02/17 06:00 Urine Glucose (UA) NEGATIVE mg/dL (NEGATIVE) 02/02/17 06:00 Urine Ketones NEGATIVE mg/dL (NEGATIVE) 02/02/17 06:00 Urine Blood LARGE (NEGATIVE) H 02/02/17 06:00 Urine Nitrate NEGATIVE (NEGATIVE) 02/02/17 06:00 Urine Bilirubin SMALL (NEGATIVE) H 02/02/17 06:00 Urine Urobilinogen 0.2 E.U./dL (0.2 - 1.0) 02/02/17 06:00 Ur Leukocyte Esterase NEGATIVE (NEGATIVE) 02/02/17 06:00 Urine RBC 50-100 /hpf (0-5) H 02/02/17 06:00 Urine WBC 6-10 /hpf (0-5) H 02/02/17 06:00 Ur Epithelial Cells MODERATE /lpf (FEW) 02/02/17 06:00 Amorphous Sediment MANY URATES (NONE SEEN) 02/02/17 06:00 Urine Bacteria MODERATE /hpf (NONE SEEN) 02/02/17 06:00 Ur Random Sodium 59 mmol/L 02/02/17 06:00 Urine Creatinine 129.0 mg/dl (28.0-217.0) 02/02/17 06:00 Vancomycin Trough 6.1 ug/mL (10-20) L 01/29/17 23:03 Salicylates < 25.0 mg/L (30.0-100.0) L 01/25/17 01:48 Urine Opiates Screen POSITIVE (NEGATIVE) H 01/25/17 03:00 Acetaminophen < 10.0 ug/mL (10.0-30.0) L 01/25/17 01:48 Ur Barbiturates Screen NEGATIVE (NEGATIVE) 01/25/17 03:00 Ur Phencyclidine Scrn NEGATIVE (NEGATIVE) 01/25/17 03:00 Amphetamines Screen POSITIVE (NEGATIVE) H 01/25/17 03:00 U Methamphetamines Scrn POSITIVE (NEGATIVE) H 01/25/17 03:00 U Benzodiazepines Scrn NEGATIVE (NEGATIVE) 01/25/17 03:00 U Cocaine Metab Screen NEGATIVE (NEGATIVE) 01/25/17 03:00 U Cannabinoids Screen NEGATIVE (NEGATIVE) 01/25/17 03:00 Ethyl Alcohol < 10 mg/dL (0-10) 01/25/17 01:48 RPR NONREACTIVE (NONREACTIVE) 01/25/17 01:48 HIV 1&2 Antibody Screen NEGATIVE (NEG) 01/26/17 05:02 - Physical Exam Vitals and I&O: Vital Signs Temp 96.8 F 02/02/17 04:00 Pulse 119 02/02/17 07:00 Resp 16 02/02/17 07:00 BP 101/51 02/02/17 07:00 Pulse Ox 98 02/02/17 07:00 Intake & Output 02/01/17 02/02/17 02/02/17 18:59 06:59 18:59 Intake Total 1240 1700 Output Total 100 150 Balance 1140 1550 Weight (lbs) 70.76 kg Intake: Intake, IV Amount 350 1700 Fluconazole 400mg/200mL 200 400 mg In 200 ml @ 100 mls/hr IV Q24HR [facility] Rx#: [id number] Piperacillin Sodium/ 300 Tazobact 4.5 gm In Sodium Chloride 0.9% 100 ml @ 100 mls/hr IV Q8HR [facility] Rx #:[id number] Sodium Chloride 0.9% 1, 1000 000 ml @ 100 mls/hr IV . Q10H [facility] Rx#:[id number] Vancomycin HCl 1 gm In 250 Sodium Chloride 0.9% 250 ml @ 165 mls/hr IV Q12H [facility] Rx#:[id number] metroNIDAZOLE 500mg/NS 100 200 100mL 500 mg In 100 ml @ 100 mls/hr IV Q8HR [facility] Rx #:[id number] Oral 300 Tube Feeding 240 Other 350 Output: Urine 100 150 Other: # Bowel Movements 0 0 Active Medications: Current Medications Clonidine HCl (Catapres) 0.1 mg PO Q4H PRN PRN Reason: sbp >160 and diastolic >100 Stop: 03/31/17 16:11 Last Admin: 01/31/17 17:06 Dose: 0.1 mg Diltiazem HCl (Cardizem) 20 mg IVP Q4HR PRN PRN Reason: HR>120 Stop: 04/02/17 08:57 Last Admin: 02/01/17 09:20 Dose: 20 mg Enalaprilat (Vasotec) 2.5 mg IVP Q4HR PRN PRN Reason: systolic BP >160 Stop: 04/02/17 11:33 Hydromorphone HCl (Dilaudid) 1 mg IVP Q3H PRN PRN Reason: MODERATE PAIN Stop: 03/26/17 17:55 Last Admin: 02/02/17 09:14 Dose: 1 mg Hydromorphone HCl (Dilaudid) 2 mg IVP Q3H PRN PRN Reason: SEVERE PAIN Stop: 03/26/17 17:56 Last Admin: 02/02/17 03:40 Dose: 2 mg Metronidazole (Flagyl) 500 mg in 100 mls @ 100 mls/hr IV Q8HR [facility] Stop: 03/28/17 04:59 Last Admin: 02/02/17 13:39 Dose: 100 mls/hr Fluconazole 400mg/200mL (Diflucan) 400 mg in 200 mls @ 100 mls/hr IV Q24HR [facility] Stop: 04/02/17 16:44 Last Infusion: 02/01/17 19:20 Dose: Infused Piperacillin Sod/Tazobactam (Sod 4.5 gm/ Sodium Chloride) 100 mls @ 100 mls/hr IV Q8HR [facility] Stop: 04/02/17 18:29 Last Admin: 02/02/17 12:45 Dose: 100 mls/hr Sodium Chloride (Nacl 0.9%) 1,000 mls @ 100 mls/hr IV .Q10H [facility] Stop: 04/02/17 17:44 Last Admin: 02/02/17 05:55 Dose: 100 mls/hr Insulin Aspart (Novolog) 0 units SUBQ Q6HR [facility]ISH PRN Reason: Protocol Stop: 03/28/17 08:59 Last Admin: 02/02/17 13:40 Dose: 4 units Lactobacillus Rhamnosus (Culturelle) 1 each PO DAILY [facility] Stop: 03/29/17 08:59 Last Admin: 02/02/17 08:56 Dose: Not Given Meperidine HCl (Demerol) 12.5 mg IVP Q2M PRN PRN Reason: POST-OP PAIN Stop: 03/27/17 19:19 Miscellaneous (Vancomycin Iv Per Pharmacy) 1 ea MC PRN [facility] Stop: 03/28/17 02:29 Miscellaneous (Probiotic Screen) 1 ea PRN PRN PRN Reason: PROTOCOL Stop: 03/28/17 13:21 Ondansetron HCl (Zofran) 4 mg IV Q6H PRN PRN Reason: Nausea / Vomiting Stop: 03/26/17 16:27 Last Admin: 01/31/17 17:13 Dose: 4 mg Pantoprazole Sodium (Protonix) 40 mg IVP BID [facility] Stop: 04/01/17 16:59 Last Admin: 02/02/17 08:56 Dose: Not Given General: Alert, Severe distress HEENT: Atraumatic, Mucous membr. moist/pink Neck: Supple, +2 carotid pulse wo bruit Cardiovascular: Regular rate, Other (tachycardic) Abdomen: Bowel sounds, Soft, Tender Extremities: no Edema Neurological: Sensation intact Skin: no Rash Psych/Mental Status: Mental status NL - Procedures Procedures: Procedures Procedure Code Date BYPASS STOMACH TO JEJUNUM, OPEN APPROACH [id number] 01/25/17 FUSION OF STOMACH AND BOWEL 90824 01/25/17 REMOVAL OF GALLBLADDER 20381 01/25/17 REPAIR STOMACH, OPEN APPROACH [id number] 01/25/17 RESECTION OF GALLBLADDER, OPEN APPROACH [id number] 01/25/17 RESPIRATORY VENTILATION, LESS THAN 24 CONSECUTIVE HOURS [id number] 01/25/17 STOMACH SURGERY PROCEDURE 53975 01/25/17 VENT MGMT INPAT INIT DAY 39314 01/25/17 Assessment/Plan - Problem List Patient Problems: All Active Problems H/O diabetes mellitus (Acute) Z86.39 H/O drug abuse (Acute) Z87.898 H/O: HTN (hypertension) (Acute) Z86.79 POSTCHOLECYSTECTOMY (Acute) UTI (urinary tract infection) (Acute) closeure og gastric perf (Acute) cplacement of new gj (Acute) h/o dementia (Acute) lysisi of adhesions (Acute) r/o sepsis (Acute) s/p surgery (Acute) septic shock (Acute) tachycardia (Acute) - Assessment Assessment: MELECIO Septic shock 2nd to acute peritonitis w/ large abcess ruptured viscus S/P exp. lap ALOC 2nd to Met Enceph type 2 DM Alzh Dementia Sinus tach Severe Malnutrition - Plan Plan: Lab - Result Diagrams 02/02/17 04:19 02/02/17 04:19 Current Medications Clonidine HCl (Catapres) 0.1 mg PO Q4H PRN PRN Reason: sbp >160 and diastolic >100 Stop: 03/31/17 16:11 Last Admin: 01/31/17 17:06 Dose: 0.1 mg Diltiazem HCl (Cardizem) 20 mg IVP Q4HR PRN PRN Reason: HR>120 Stop: 04/02/17 08:57 Last Admin: 02/01/17 09:20 Dose: 20 mg Enalaprilat (Vasotec) 2.5 mg IVP Q4HR PRN PRN Reason: systolic BP >160 Stop: 04/02/17 11:33 Hydromorphone HCl (Dilaudid) 1 mg IVP Q3H PRN PRN Reason: MODERATE PAIN Stop: 03/26/17 17:55 Last Admin: 02/02/17 09:14 Dose: 1 mg Hydromorphone HCl (Dilaudid) 2 mg IVP Q3H PRN PRN Reason: SEVERE PAIN Stop: 03/26/17 17:56 Last Admin: 02/02/17 03:40 Dose: 2 mg Metronidazole (Flagyl) 500 mg in 100 mls @ 100 mls/hr IV Q8HR [facility] Stop: 03/28/17 04:59 Last Admin: 02/02/17 13:39 Dose: 100 mls/hr Fluconazole 400mg/200mL (Diflucan) 400 mg in 200 mls @ 100 mls/hr IV Q24HR [facility] Stop: 04/02/17 16:44 Last Infusion: 02/01/17 19:20 Dose: Infused Piperacillin Sod/Tazobactam (Sod 4.5 gm/ Sodium Chloride) 100 mls @ 100 mls/hr IV Q8HR [facility] Stop: 04/02/17 18:29 Last Admin: 02/02/17 12:45 Dose: 100 mls/hr Sodium Chloride (Nacl 0.9%) 1,000 mls @ 100 mls/hr IV .Q10H [facility] Stop: 04/02/17 17:44 Last Admin: 02/02/17 05:55 Dose: 100 mls/hr Insulin Aspart (Novolog) 0 units SUBQ Q6HR [facility] PRN Reason: Protocol Stop: 03/28/17 08:59 Last Admin: 02/02/17 13:40 Dose: 4 units Lactobacillus Rhamnosus (Culturelle) 1 each PO DAILY [facility] Stop: 03/29/17 08:59 Last Admin: 02/02/17 08:56 Dose: Not Given Meperidine HCl (Demerol) 12.5 mg IVP Q2M PRN PRN Reason: POST-OP PAIN Stop: 03/27/17 19:19 Miscellaneous (Vancomycin Iv Per Pharmacy) 1 ea PRN [facility] Stop: 03/28/17 02:29 Miscellaneous (Probiotic Screen) 1 [facility] PRN PRN PRN Reason: PROTOCOL Stop: 03/28/17 13:21 Ondansetron HCl (Zofran) 4 mg IV Q6H PRN PRN Reason: Nausea / Vomiting Stop: 03/26/17 16:27 Last Admin: 01/31/17 17:13 Dose: 4 mg Pantoprazole Sodium (Protonix) 40 mg IVP BID [facility] Stop: 04/01/17 16:59 Last Admin: 02/02/17 08:56 Dose: Not Given WBC up to 42 Kidney fnc worse, remains anuric continue IVF f/u panculture continue Flagyl, Fluconazole, Zosyn f/u electrolytes, cbc Nutritional Asmnt/Malnutr-PDOC - Dietary Evaluation Malnutrition Findings (Please click <Entered> for more info): Nutritional Asmnt/Malnutrition Start: 01/26/17 14: 32 Text: Status: Complete Freq: Document 01/26/17 14:32 GSUN (Rec: 01/26/17 14:51 [id number] [id number]) Nutritional Asmnt/Malnutrition Patient General Information Nutritional Screening Consult Diagnosis UTI, leukocytosis maybe reactive versus sepsis Pertinent Medical Hx/Surgical Hx HTN, DM, drug abuse, dementia Subjective Information 71 year old female, homeless. RD consult for BG >180. Pt was NPO at time of visit for CT abdomen/pelvis scan. Pt was agitated and in pain during visit. Pt refused to answer RD questions, repeatedly asked about bowel prep processes, then yelled at RD to leave. Pertinent Medications Val Santos Pertinent Labs 01/25: A1c 6, glucose 319H Nutritional Hx/Data Height 1.73 m Height (Calculated Centimeters) 172.7 Current Weight (lbs) 69.899 kg Weight (Calculated Kilograms) 69.9 Weight (Calculated Grams) 91142.6 [place] Body Weight 140lb Weight Status Approriate GI Symptoms Cultural/Ethnic/Yarsanism Belief Unknown. Usual diet at home Unknown. Estimated Nutritional Goals BEE in Kcals: Using Current wt Calories/Kcals/Kg CBW 70kg Kcals Calculated 1750-2100kcal (25-30kcal/kg, ? possible sepsis) Protein: Using Current wt Protein Calculated 70g (1g/kg) Fluid: ml 1750-2100ml (1ml/kcal) Nutritional Problem 1. Problem Problem Altered nutrition related laboratory values related to Etiology DM aeb Signs/Symptoms: H&P, glucose 319H on adm Intervention/Recommendation Comments 1. NPO at time of visit. Diet advancement per MD, recommend [id number] to promtoe glycemic control. 2. Provide edu on DM as needed . Expected Outcomes/Goals Expected Outcomes/Goals 1. [place] to meet 100% of estimated nutritional needs.
[2017-02-02] MEDS: Fluconazole 400mg/200mL 400 MG/200 ML BAG IV SCH (15:49)
[2017-02-02] MEDS ORDERED: Midazolam 1mg/ml 2 ml vial IV ONE ×2 (17:46→19:11)
[2017-02-02] MEDS ORDERED: Meperidine 25 mg/mL 1mL Syr ONE (17:47)
--- NOTE | 2017-02-02 18:23 | Cardiology ---
ECHOCARDIOGRAM REPORT The patient is a patient of Dr. Aggarwal. M-MODE ECHOCARDIOGRAM: Mitral valve, anterior leaflet of the mitral valve shows normal excursion, EF velocity. Posterior leaflet of the mitral valve shows normal excursion. Left ventricular posterior wall shows increased thickness, normal excursion. Interventricular septum shows increased thickness, normal excursion, hypertrophy of the left ventricle, ejection fraction 50%. Left atrium normal. Aortic root shows normal dimension, normal excursion of aortic leaflets. CONCLUSION: Hypertrophy of the left ventricle, ejection fraction 50%. 2D ECHO ON THE SAME: Long axis view showed normal-sized left ventricle with hypertrophy of the left ventricle. Left atrium normal. Aortic root shows normal dimension, normal excursion of aortic leaflets. Short axis view of mitral valve normal, short axis view of aortic valve normal. Apical four chamber view showed normal-sized left ventricle, left atrium, right ventricle, right atrium, tricuspid and mitral valve. Ejection fraction 50%. CONCLUSION: Hypertrophy of the left ventricle, ejection fraction 50%. Doppler study shows prominent A wave consistent with poor compliance of left ventricle with some mild tricuspid regurgitation. [facility]# [id number]
[2017-02-02] MEDS ORDERED: Meperidine 25 mg/mL 1mL Syr IVP PRN (18:26)
[2017-02-02] MEDS ORDERED: Neostigmine 10mg/10mL Vial ONE (18:29)
[2017-02-02] MEDS ORDERED: Lactated Ringer 1,000 ML IV SCH (18:30)
[2017-02-02] MEDS ORDERED: Bupivacaine 0.25% W/Ep 10 mL Vial ONE ×2 (18:45→18:47)
[2017-02-02] MEDS ORDERED: fentaNYL Citrate 100 mcg/2mL Vial ONE (19:11)
--- NOTE | 2017-02-02 21:37 | Operative Report ---
PREOPERATIVE DIAGNOSES: 1. Postoperative abscess. 2. Status post perforation of the gastrojejunal anastomosis. INDICATIONS FOR SURGERY: The patient with persistent leukocytosis, rising to 42,000 on the date of surgery. CT scan on the day of surgery showed small amount of free fluid and small fluid collection striking down bilateral paracolic gutter into the pelvis. There is a large loculated appearing fluid collection along the left lateral abdomen extending to the left side subdiaphragmatic region raising the question of a large abscess. POSTOPERATIVE DIAGNOSIS: Intra-abdominal abscess. No anastomotic leak from previous surgery. SURGEON: Mark Anthony Coyne M.D. HEADING MAKER: Dr. Valdivia. ANESTHESIA: General. ANESTHESIOLOGIST: Grzegorz Acosta M.D. OPERATIVE FINDINGS: 1. There was fluid collection, but no abscess in the abdominal cavity, both paracolic gutters into the pelvis. The patient underwent placement of the NG-tube and this was palpated into the stomach at 100 mL of methylene blue was injected. No leak was noted. 2. Washout of abdominal cavity with ____ juice. DESCRIPTION OF PROCEDURE: The patient was given general anesthesia. The abdomen was prepped with ChloraPrep and draped in appropriate manner. The old incision was reopened. Retractor was applied. Exploration was carried out at the site of the previous anastomosis and no leak was found in this area. There was fluid all around the left and right paracolic gutters and into the subhepatic space. Also into the pelvis. Adhesions, which were soft were lysed by hand. Irrigation with ____ was carried out. NG tube was placed and 100 mL of methylene blue was injected and no leak was noted anywhere in the abdominal cavity. Following satisfactory hemostasis and aspiration, 2 Jose-Miranda drains were left; one at the site of the previous gastrojejunostomy and one in the pelvis. The abdominal incision was closed with running suture of #1 PDS and the subcutaneous tissues were closed with 3-0 Vicryl and the skin with subcuticular suture of 4-0 Vicryl. The patient will be sent back to ICU for further observation. JOB# [id number]
[2017-02-03] MEDS: INSULIN ASPART, RECOMBINANT 100 UNITS/ML SUBQ SCH ×4 (02:45→18:50)
--- NOTE | 2017-02-03 03:48 | Consultation ---
ATTENDING PHYSICIAN: Renan Aggarwal M.D. INTERACTIVE PROJECT MANAGER: Israel Alvarado M.D. REASON FOR CONSULTATION: Worsening kidney function, electrolyte imbalance and fluid management. HISTORY OF PRESENT ILLNESS: This is a 71-year-old female with past medical history of diabetes who came in because of altered level of consciousness. A few hours prior to admission, the patient was noted to have altered level of consciousness. Paramedics were notified. She at that time had markedly elevated blood sugar. She was then brought to the Emergency Room. She initially had a white count of 14, but increase to 20.8. CT scan of the abdomen/pelvis revealed diffuse free abdominal air suggestive of bowel rupture. She was evaluated by the surgeon. She underwent exploratory laparotomy with closure of gastric perforation, a new gastrojejunostomy/open cholecystectomy with lysis of dense adhesions. LABORATORY DATA: Her white count gradually decreased down to 13.2. However, her white count started to rise again, and now is up to 376. She became tachycardic and there was a sudden drop in her blood pressure. Lactic acid also gradually increase to 3.35. She was then transferred to ICU. Her BUN/creatinine upon admission were 90/1. Her BUN/creatinine today were 30/1.5 and she is now anuric. PAST MEDICAL HISTORY: 1. Type 2 diabetes mellitus. 2. Essential hypertension. 3. Alzheimer dementia. CURRENT MEDICATIONS: She is currently on diltiazem, enalapril, fluconazole, enalaprilat, fluconazole, hydromorphone, lactobacillus, meperidine, ondansetron, pantoprazole, vancomycin, ceftriaxone, clonidine and metronidazole. ALLERGIES: Penicillin, sulfamethoxazole and trimethoprim. SOCIAL AND FAMILY HISTORY: I was not able to obtain directly from the patient because of her altered mental status due to her ongoing shock. REVIEW OF SYSTEMS: GENERAL: Again, I was not able to decipher from the patient. However, based on progress notes, the patient's appetite had deteriorated due to her abdominal pain and finding of her surgery. She also had on and off fever. HEENT: No mention of headaches nor dizziness. CARDIORESPIRATORY: No shortness of breath, chest pain, palpitations, diaphoresis or cough. GASTROINTESTINAL: She now had developed abdominal pain. This has gradually worsened. No accompanying nausea and vomiting as well as diarrhea. MUSCULOSKELETAL: Multiple joint arthralgias. GENITOURINARY: Sudden deterioration of kidney failure. She does have a history of urinary tract infection upon admission. HEMATOLOGIC: She has mild anemia. NEUROPSYCHIATRIC: No syncopal episode nor seizure activity. PHYSICAL EXAMINATION: GENERAL: The patient is drowsy at the present time, also in severe pain, severe abdominal pain. VITAL SIGNS: Blood pressure is 97/60, pulse 134 and temperature 96.9 degrees. SKIN: Poor turgor, warm. No rash and no jaundice appreciated. HEENT: Head: Normocephalic and atraumatic. EYES: Extraocular muscles intact. Pupils equal, round and reactive to light and accommodates. Anicteric sclerae. Benjamin Perez conjunctivae. Nose: Midline nasal septum. Mouth: Dry mucosa with poor dentition. NECK: Supple. No adenopathy, no thyromegaly and no bruits. Trachea palpated in the midline. CHEST AND CVS: S1 and S2. No rub, murmur nor gallop appreciated. Point of maximal impulse is in the fifth intercostal space, left midclavicular line. No abdominal or femoral bruits appreciated. LUNGS: Equal expansion. No use of accessory muscles. No supraclavicular retractions, few rhonchi, but no rales nor wheezes appreciated. BREASTS: Symmetrical, without any discharge. ABDOMEN: Flat, very soft and tender on slight palpation, no rigidity nor guarding. She has a well healed hypogastric midline surgical scar. EXTREMITIES: No evidence of any edema nor cyanosis. RECTAL: Deferred. GENITOURINARY: Normal appearing female genitalia. MUSCULOSKELETAL: No effusions present in her joints, but unable to assess her range of motion. NEUROLOGIC: The patient, as mentioned, is arousable, but remains drowsy in severe abdominal pain, so I was not able to pursue further my neuro exam. LABORATORY DATA: Labs revealed sodium 139, potassium 3.7, chloride 111, bicarb 25, BUN 30, creatinine 1.5 and glucose 268. White count 37.6, hemoglobin 13.4, hematocrit 38.5, polys 90.5% and platelets 295. Calcium 7.8, albumin is 2.2. IMPRESSION: 1. Anuric acute kidney injury with GFR of 36 mL per minute. This is secondary to prerenal azotemia, which has progressed to acute tubular injury. This was supported by her poor skin turgor, dry oral mucosa and hypotension. She subsequently developed a decrease in effective circulating volume, which then lead to her acute tubular injury. She also has ongoing septicemia as well as complicated urinary tract infection upon admission, which could also lead to development of acute interstitial nephritis. 2. Shock, septic in nature, which is distributive. 3. Sepsis is due to acute peritonitis with complicated urinary tract infection. 4. Ruptured viscous, status post exploratory laparotomy with closure of perforated jejunostomy, open cholecystectomy and lysis of adhesions. 5. Altered level of consciousness, status post metabolic encephalopathy. 6. Type 2 diabetes mellitus. 7. Essential hypertension. 8. Alzheimer dementia. 9. Sinus tachycardic. 10. Severe malnutrition. PLAN: 1. Continue with IV fluids. 2. Castellano culture. 3. Continue with broad-spectrum antibiotics. 4. We will start pressors as needed. 5. Urinalysis, urine spot sodium, eosinophils and creatinine. 6. Renal ultrasound. 7. Repeat CT scan of the abdomen/pelvis once the patient is more stable. Thank you, Dr. Aggarwal for this consult. We will follow the patient closely with you. JOB# [id number]
--- NOTE | 2017-02-03 03:55 | Consultation ---
The patient of Dr. Aggarwal. HISTORY AND PHYSICAL: This is a 71-year-old female patient who was brought to the Emergency Room complaining of abdominal pain. The patient had ultrasound, which showed gallbladder sludge. The patient's persistent abdominal pain resulted in a CAT scan which showed free air under the diaphragm hence the patient had exploratory laparotomy for perforated viscus and peritonitis. Following this, the patient was admitted to ICU and the patient had supraventricular tachycardia and hence Cardiology consult was requested. PAST MEDICAL HISTORY: The patient has a history of diabetes, hypertension, dementia, and protein-calorie malnutrition. FAMILY HISTORY: Unremarkable. SOCIAL HISTORY: No history of smoking or alcohol abuse. ALLERGIES: No known allergies. PHYSICAL EXAMINATION: VITAL SIGNS: Blood pressure 120/80, pulse 120, and respirations 28. HEAD: Normocephalic. No lumps or bumps. EYES: Pupils are equal and reactive to light. Fundi show AV nicking, sclerae white, and conjunctivae pink. NECK: Carotid 2+. Normal upstroke. JVD flat. Thyroid not palpable. Lymph nodes not palpable. CHEST: Shows increased AP diameter. No kyphosis or scoliosis. LUNGS: Bilateral bronchovesicular breath sounds. Occasional wheeze. No rales. HEART: PMI fifth intercostal space with lateral to midclavicular line. S1, S2. No S3, S4. Systolic murmur, grade 2/6, lower left sternal border without radiation. ABDOMEN: No rebound tenderness. The patient has a scar from surgery. EXTREMITIES: Peripheral pulses 1+. No pedal edema. NEUROLOGIC: No focal neurological deficit. CLINICAL IMPRESSION: Supraventricular tachycardia, septic shock, hypotension, gastric perforation with peritonitis, hypertension, dementia, urinary tract infection, diabetes mellitus, and chronic kidney disease stage 2. PLAN: The patient to continue on IV antibiotics. Control the heart rate with Cardizem and monitor the patient in ICU. JOB# [id number]
[2017-02-03] MEDS ORDERED: Meropenem 0.5 GM in Sodium Chloride 0.9% 100 ML IV SCH (05:09)
[2017-02-03] MEDS: HYDROmorphone 2 mg/mL 1mL Vial IVP PRN ×3 (05:24→13:45)
[2017-02-03] MEDS: Sodium Chloride 0.9% 1,000 ML IV SCH ×2 (05:25→23:45)
[2017-02-03 05:50] LABS: HEMOGLOBIN 12.1 gm/dL (11.7-16.1); MEAN CELL VOLUME 100.4 fl (81-100); MEAN CORPUSCULAR HEMOGLOBIN 34.6 pg (27.0-31.0); MEAN CORPUSCULAR HGB CONC 34.5 pg (28.0-36.0); MEAN PLATELET VOLUME 8.6 fl; RED BLOOD COUNT 3.49 Mil/cmm (3.80-5.20); RED CELL DISTRIBUTION WIDTH 12.8 % (11.5-20.0)
[2017-02-03 05:51] LABS: ALB/GLOB RATIO 0.9 (1.0-1.8); ANION GAP 13.6 (7.0-16.0); BILIRUBIN,TOTAL 0.4 mg/dL (0.3-1.0); CALCIUM SERUM 7.5 mg/dL (8.6-10.3); CARBON DIOXIDE 21.2 mEq/L (21.0-31.0); MAGNESIUM 1.6 mg/dL (1.9-2.7); PHOSPHOROUS 5.3 mg/dL (2.5-5.0); POTASSIUM SERUM 3.8 mEq/L (3.5-5.1)
[2017-02-03 05:53] LABS: VANCOMYCIN RANDOM 25.5 ug/mL (5.0-40.0)
[2017-02-03 06:08] LABS: PLATELET COUNT 302 Th/cmm (150-400); WHITE BLOOD COUNT 56.4 Th/cmm (4.8-10.8)
--- NOTE | 2017-02-03 06:22 | Progress Notes ---
SUBJECTIVE: The patient is currently in the operating room. The patient to undergo exploratory laparotomy for CT scan this morning showed possible large abscess with pockets of gas and some fluid collection ongoing. According to the nurses, the patient also appears to have episodes of confusion, trying to pull out her IV access. OBJECTIVE: HEENT: Head is atraumatic, normocephalic. Eyes; bilateral conjunctivae are clear. NECK: Supple. No JVD. CARDIOVASCULAR: S1 and S2 heard without murmur. PULMONARY: Decreased breath sounds on both sides. GASTROINTESTINAL: Soft and nontender. Positive bowel sounds. MUSCULOSKELETAL: Bilateral lower extremities, no clubbing, no edema noted. ASSESSMENT: 1. Perforated viscus. 2. Status post exploratory laparotomy. 3. Diabetes. 4. Hypertension. 5. Urinary tract infection. 6. Possible sepsis. PLAN: We will keep the patient in ICU. We will monitor the patient's white count, and we will continue IV antibiotics per ID doctor, and we will follow up also with the surgeon to monitor the patient's progress. JOB# [id number]
[2017-02-03] MEDS: Meropenem 500 MG in Sodium Chloride 0.9% 100 ML IV SCH ×3 (08:00→23:45)
[2017-02-03 08:37] LABS: BAND NEUTROPHILE 7 % (0-10); NEUTROPHILS 89 % (40-80); TOTAL CELLS COUNTED 100
[2017-02-03 08:38] LABS: ANISOCYTOSIS 1+; PLATELET ESTIMATE ADEQUATE (NORMAL); PLATELET MORPHOLOGY GIANT PLATELETS SEEN (NORMAL)
[2017-02-03] MEDS: Lactobacillus Rhamnosus 10 Billion CFU Capsule PO SCH (08:45)
--- NOTE | 2017-02-03 09:16 | Diagnostic Imaging Report ---
CHEST X-RAY: AP view INDICATION: Pneumonia COMPARISON: Chest x-ray 02/02/[address] abdomen and pelvis on left 2917 FINDINGS: Left basal hazy density is noted suggestive of small left effusion compared recent CT exam. No focal consolidation identified. Heart size at the upper limits of normal. Atherosclerosis is noted. Old left rib fractures are noted. IMPRESSION: Left basal density suggestive of a small left pleural effusion when compared to recent CT examination on 02/02/2017. There may be atelectasis versus less likely infiltrate of the left lung base when compared to recent CT examination.
[2017-02-03] MEDS: Diltiazem 5 mg/mL 5mL Vial IVP PRN ×2 (10:30→21:57)
--- NOTE | 2017-02-03 11:28 | General Progress Note ---
Subjective - Review of Systems Events since last encounter: 02/03/17 patient pulled out NGT keep NPO rising leukocytosis minimal SANCHEZ drainage, sero-sanguinous abdomen is flat, some peristalsis Objective - Results Result Diagrams: 02/03/17 04:53 02/03/17 04:53 Recent Labs: Laboratory Last Values WBC 56.4 Th/cmm (4.8-10.8) H* D 02/03/17 04:53 RBC 3.49 Mil/cmm (3.80-5.20) L 02/03/17 04:53 Hgb 12.1 gm/dL (11.7-16.1) 02/03/17 04:53 Hct 35.0 % (35.0-45.0) 02/03/17 04:53 MCV 100.4 fl (81-100) H 02/03/17 04:53 MCH 34.6 pg (27.0-31.0) H 02/03/17 04:53 MCHC Differential 34.5 pg (28.0-36.0) 02/03/17 04:53 RDW 12.8 % (11.5-20.0) 02/03/17 04:53 Plt Count 302 Th/cmm (150-400) D 02/03/17 04:53 MPV 8.6 fl 02/03/17 04:53 Neutrophils % GREENSKEEPER 02/01/17 15:55 Band Neutrophils % 7 % (0-10) 02/03/17 04:53 Lymphocytes % GREENSKEEPER 02/01/17 15:55 Monocytes % GREENSKEEPER 02/01/17 15:55 Eosinophils % 0.8 % (0.0-5.0) 01/25/17 01:48 Basophils % GREENSKEEPER 02/01/17 15:55 Neutrophils (Manual) 89 % (40-80) H 02/03/17 04:53 Lymphocytes 2 % (20-50) L 02/03/17 04:53 Monocytes 2 % (2-10) 02/03/17 04:53 Eosinophils 0 % (0-5) 02/01/17 15:55 Basophils 1 % (0-3) 02/02/17 04:19 Metamyelocytes 2 % (0-0) H 02/02/17 04:19 Myelocytes 2 % 01/31/17 05:40 Platelet Estimate ADEQUATE (NORMAL) 02/03/17 04:53 Platelet Morphology GIANT PLATELETS SEEN (NORMAL) 02/03/17 04:53 Anisocytosis 1+ 02/03/17 04:53 RBC Morph Micro Appear ABNORMAL (NORMAL) 02/03/17 04:53 Eos Smear Source URINE 02/02/17 06:00 Eos Smear Total Cells NONE SEEN (NONE SEEN) 02/02/17 06:00 PT 9.9 SECONDS (9.5-11.5) 01/25/17 01:48 INR 0.95 (0.5-1.4) 01/25/17 01:48 Specimen Source Arterial 01/27/17 09:13 Sample Site Right Radial 01/27/17 09:13 pH 7.36 (7.35-7.45) 01/27/17 09:13 pCO2 41.0 mmHg (35.0-45.0) 01/27/17 09:13 pO2 100.0 mmHg (80.0-100.0) 01/27/17 09:13 HCO3 23.2 mEq/L (20.0-26.0) 01/27/17 09:13 Base Excess -2.2 mEq/L (-3.0-3.0) 01/27/17 09:13 O2 Saturation 97.0 % (92.0-100.0) 01/27/17 09:13 Luther Test PASS 01/27/17 09:13 Vent Rate 13 01/27/17 09:13 Inspired O2 30 01/27/17 09:13 Tidal Volume 500 01/27/17 09:13 PEEP 5 01/27/17 09:13 Pressure (ins/psv/peep) N/A 01/26/17 21:00 Critical Value PW 01/27/17 09:13 Sodium 144 mEq/L (136-145) 02/03/17 04:53 Potassium 3.8 mEq/L (3.5-5.1) 02/03/17 04:53 Chloride 113 mEq/L (98-107) H 02/03/17 04:53 Carbon Dioxide 21.2 mEq/L (21.0-31.0) 02/03/17 04:53 Anion Gap 13.6 (7.0-16.0) 02/03/17 04:53 BUN 48 mg/dL (7-25) H 02/03/17 04:53 Creatinine 3.0 mg/dL (0.6-1.2) H 02/03/17 04:53 Est GFR ( Amer) 19.9 ml/min (>90) 02/03/17 04:53 Est GFR (Non-Af Amer) 16.4 ml/min 02/03/17 04:53 BUN/Creatinine Ratio 16.0 02/03/17 04:53 Glucose 150 mg/dL (70-105) H 02/03/17 04:53 POC Glucose 142 MG/DL (70 - 105) H 02/03/17 06:03 Hemoglobin A1c % 6.0 % (4.0-6.0) 01/25/17 01:48 Whole Bld Lactic Acid 1.68 mmol/L (0.60-1.99) 02/03/17 04:53 Uric Acid 4.4 mg/dL (2.3-6.6) 02/02/17 04:19 Calcium 7.5 mg/dL (8.6-10.3) L 02/03/17 04:53 Phosphorus 5.3 mg/dL (2.5-5.0) H 02/03/17 04:53 Magnesium 1.6 mg/dL (1.9-2.7) L 02/03/17 04:53 Total Bilirubin 0.4 mg/dL (0.3-1.0) 02/03/17 04:53 AST 13 U/L (13-39) 02/03/17 04:53 ALT 5 U/L (7-52) L 02/03/17 04:53 Alkaline Phosphatase 43 U/L (34-104) 02/03/17 04:53 Troponin I < 0.01 ng/mL (0.01-0.05) L 01/25/17 01:48 Total Protein 3.8 gm/dL (6.0-8.3) L 02/03/17 04:53 Albumin 1.8 gm/dL (3.7-5.3) L 02/03/17 04:53 Globulin 2.0 gm/dL 02/03/17 04:53 Albumin/Globulin Ratio 0.9 (1.0-1.8) L 02/03/17 04:53 Triglycerides 98 mg/dL (<150) 01/25/17 01:48 Cholesterol 146 mg/dL (<200) 01/25/17 01:48 LDL Cholesterol Direct 37 mg/dL (75-193) L 01/25/17 01:48 HDL Cholesterol 83 mg/dL (23-92) 01/25/17 01:48 TSH 1.45 uIU/ml (0.34-5.60) 01/25/17 01:48 Urine Source RANDOM 02/02/17 06:00 Urine Color BROWN 02/02/17 06:00 Urine Clarity SL. CLOUDY (CLEAR) 02/02/17 06:00 Urine pH 6.0 02/02/17 06:00 Ur Specific Amo 1.025 (1.005-1.030) 02/02/17 06:00 Urine Protein >300 mg/dL (NEGATIVE) H 02/02/17 06:00 Urine Glucose (UA) NEGATIVE mg/dL (NEGATIVE) 02/02/17 06:00 Urine Ketones NEGATIVE mg/dL (NEGATIVE) 02/02/17 06:00 Urine Blood LARGE (NEGATIVE) H 02/02/17 06:00 Urine Nitrate NEGATIVE (NEGATIVE) 02/02/17 06:00 Urine Bilirubin SMALL (NEGATIVE) H 02/02/17 06:00 Urine Urobilinogen 0.2 E.U./dL (0.2 - 1.0) 02/02/17 06:00 Ur Leukocyte Esterase NEGATIVE (NEGATIVE) 02/02/17 06:00 Urine RBC 50-100 /hpf (0-5) H 02/02/17 06:00 Urine WBC 6-10 /hpf (0-5) H 02/02/17 06:00 Ur Epithelial Cells MODERATE /lpf (FEW) 02/02/17 06:00 Amorphous Sediment MANY URATES (NONE SEEN) 02/02/17 06:00 Urine Bacteria MODERATE /hpf (NONE SEEN) 02/02/17 06:00 Ur Random Sodium 59 mmol/L 02/02/17 06:00 Urine Creatinine 129.0 mg/dl (28.0-217.0) 02/02/17 06:00 Vancomycin Trough 6.1 ug/mL (10-20) L 01/29/17 23:03 Random Vancomycin 25.5 ug/mL (5.0-40.0) 02/03/17 04:53 Salicylates < 25.0 mg/L (30.0-100.0) L 01/25/17 01:48 Urine Opiates Screen POSITIVE (NEGATIVE) H 01/25/17 03:00 Acetaminophen < 10.0 ug/mL (10.0-30.0) L 01/25/17 01:48 Ur Barbiturates Screen NEGATIVE (NEGATIVE) 01/25/17 03:00 Ur Phencyclidine Scrn NEGATIVE (NEGATIVE) 01/25/17 03:00 Amphetamines Screen POSITIVE (NEGATIVE) H 01/25/17 03:00 U Methamphetamines Scrn POSITIVE (NEGATIVE) H 01/25/17 03:00 U Benzodiazepines Scrn NEGATIVE (NEGATIVE) 01/25/17 03:00 U Cocaine Metab Screen NEGATIVE (NEGATIVE) 01/25/17 03:00 U Cannabinoids Screen NEGATIVE (NEGATIVE) 01/25/17 03:00 Ethyl Alcohol < 10 mg/dL (0-10) 01/25/17 01:48 RPR NONREACTIVE (NONREACTIVE) 01/25/17 01:48 HIV 1&2 Antibody Screen NEGATIVE (NEG) 01/26/17 05:02 - Physical Exam Vitals and I&O: Vital Signs Temp 97.8 F 02/03/17 10:00 Pulse 128 02/03/17 10:30 Resp 13 02/03/17 10:00 BP 120/51 02/03/17 10:00 Pulse Ox 100 02/03/17 10:00 Intake & Output 02/02/17 02/03/17 02/03/17 18:59 06:59 18:59 Intake Total 1100 100 Output Total 100 770 Balance 1000 -670 Intake: Intake, IV Amount 1100 100 Piperacillin Sodium/ 100 100 Tazobact 4.5 gm In Sodium Chloride 0.9% 100 ml @ 100 mls/hr IV Q8HR ANISH Rx #:[id number] Sodium Chloride 0.9% 1, 1000 000 ml @ 100 mls/hr IV . Q10H ANISH Rx#:[id number] Output: Drainage 370 Left Lower Abdomen 130 Right Lower Abdomen 240 Urine 100 400 Active Medications: Current Medications Clonidine HCl (Catapres) 0.1 mg PO Q4H PRN PRN Reason: sbp >160 and diastolic >100 Stop: 03/31/17 16:11 Last Admin: 01/31/17 17:06 Dose: 0.1 mg Diltiazem HCl (Cardizem) 20 mg IVP Q4HR PRN PRN Reason: HR>120 Stop: 04/02/17 08:57 Last Admin: 02/03/17 10:30 Dose: 20 mg Enalaprilat (Vasotec) 2.5 mg IVP Q4HR PRN PRN Reason: systolic BP >160 Stop: 04/02/17 11:33 Hydromorphone HCl (Dilaudid) 1 mg IVP Q3H PRN PRN Reason: MODERATE PAIN Stop: 03/26/17 17:55 Last Admin: 02/02/17 09:14 Dose: 1 mg Hydromorphone HCl (Dilaudid) 2 mg IVP Q3H PRN PRN Reason: SEVERE PAIN Stop: 03/26/17 17:56 Last Admin: 02/03/17 10:20 Dose: 2 mg Fluconazole 400mg/200mL (Diflucan) 400 mg in 200 mls @ 100 mls/hr IV Q24HR ANISH Stop: 04/02/17 16:44 Last Admin: 02/02/17 15:49 Dose: 100 mls/hr Sodium Chloride (Nacl 0.9%) 1,000 mls @ 100 mls/hr IV .Q10H [facility] Stop: 04/02/17 17:44 Last Admin: 02/03/17 05:25 Dose: 100 mls/hr Lactated Ringer's (Lactated Ringer) 1,000 mls @ 0 mls/hr IV .Q0M ANISH PRN Reason: TKO Stop: 02/03/17 18:29 Meropenem 500 mg/ Sodium (Chloride) 100 mls @ 100 mls/hr IV Q8H [facility] Stop: 04/04/17 07:44 Last Admin: 02/03/17 08:00 Dose: 100 mls/hr Insulin Aspart (Novolog) 0 units SUBQ Q6HR ANISH PRN Reason: Protocol Stop: 03/28/17 08:59 Last Admin: 02/03/17 06:52 Dose: Not Given Lactobacillus Rhamnosus (Culturelle) 1 each PO DAILY [facility] Stop: 03/29/17 08:59 Last Admin: 02/02/17 08:56 Dose: Not Given Meperidine HCl (Demerol) 12.5 mg IVP UD PRN PRN Reason: POST-OP PAIN Stop: 02/03/17 18:25 Miscellaneous (Probiotic Screen) 1 ea MC PRN PRN PRN Reason: PROTOCOL Stop: 03/28/17 13:21 Miscellaneous (Vancomycin Iv Per Pharmacy) 1 ea MC PRN ANISH Stop: 04/04/17 05:14 Ondansetron HCl (Zofran) 4 mg IV UD PRN PRN Reason: Nausea / Vomiting Stop: 04/03/17 18:25 Pantoprazole Sodium (Protonix) 40 mg IVP BID ANISH Stop: 04/01/17 16:59 Last Admin: 02/03/17 08:49 Dose: 40 mg - Procedures Procedures: Procedures Procedure Code Date BYPASS STOMACH TO JEJUNUM, OPEN APPROACH [id number] 01/25/17 FUSION OF STOMACH AND BOWEL 07472 01/25/17 REMOVAL OF GALLBLADDER 17517 01/25/17 REPAIR STOMACH, OPEN APPROACH [id number] 01/25/17 RESECTION OF GALLBLADDER, OPEN APPROACH [id number] 01/25/17 RESPIRATORY VENTILATION, LESS THAN 24 CONSECUTIVE HOURS [id number] 01/25/17 STOMACH SURGERY PROCEDURE 06415 01/25/17 VENT MGMT INPAT INIT DAY 67652 01/25/17 Assessment/Plan - Problem List Patient Problems: All Active Problems H/O diabetes mellitus (Acute) Z86.39 H/O drug abuse (Acute) Z87.898 H/O: HTN (hypertension) (Acute) Z86.79 POSTCHOLECYSTECTOMY (Acute) UTI (urinary tract infection) (Acute) closeure og gastric perf (Acute) cplacement of new gj (Acute) h/o dementia (Acute) lysisi of adhesions (Acute) r/o sepsis (Acute) s/p surgery (Acute) septic shock (Acute) tachycardia (Acute) Nutritional Asmnt/Malnutr-PDOC - Dietary Evaluation Malnutrition Findings (Please click <Entered> for more info): Nutritional Asmnt/Malnutrition Start: 01/26/17 14: 32 Text: Status: Complete Freq: Document 01/26/17 14:32 GSUN (Rec: 01/26/17 14:51 [email or web address]) Nutritional Asmnt/Malnutrition Patient General Information Nutritional Screening Consult Diagnosis UTI, leukocytosis maybe reactive versus sepsis Pertinent Medical Hx/Surgical Hx HTN, DM, drug abuse, dementia Subjective Information 71 year old female, homeless. RD consult for BG >180. Pt was NPO at time of visit for CT abdomen/pelvis scan. Pt was agitated and in pain during visit. Pt refused to answer RD questions, repeatedly asked about bowel prep processes, then yelled at RD to leave. Pertinent Medications Val Santos Pertinent Labs 01/25: A1c 6, glucose 319H Nutritional Hx/Data Height 1.73 m Height (Calculated Centimeters) 172.7 Current Weight (lbs) 69.899 kg Weight (Calculated Kilograms) 69.9 Weight (Calculated Grams) 28882.6 [place] Body Weight 140lb Weight Status Approriate GI Symptoms Cultural/Ethnic/Advent Belief Unknown. Usual diet at home Unknown. Estimated Nutritional Goals BEE in Kcals: Using Current wt Calories/Kcals/Kg CBW 70kg Kcals Calculated 1750-2100kcal (25-30kcal/kg, ? possible sepsis) Protein: Using Current wt Protein Calculated 70g (1g/kg) Fluid: ml 1750-2100ml (1ml/kcal) Nutritional Problem 1. Problem Problem Altered nutrition related laboratory values related to Etiology DM aeb Signs/Symptoms: H&P, glucose 319H on adm Intervention/Recommendation Comments 1. NPO at time of visit. Diet advancement per MD, recommend [id number] to promtoe glycemic control. 2. Provide edu on DM as needed . Expected Outcomes/Goals Expected Outcomes/Goals 1. [place] to meet 100% of estimated nutritional needs.
--- NOTE | 2017-02-03 14:37 | Infectious Disease Prog Note ---
Infectious Disease Subjective - Review of Systems Service Date: 02/03/17 Subjective: Doing well. Rt IJ is coming out. Infectious Disease Objective - Results Result Diagrams: 02/03/17 04:53 02/03/17 04:53 Recent Labs: Laboratory Last Values WBC 56.4 Th/cmm (4.8-10.8) H* D 02/03/17 04:53 RBC 3.49 Mil/cmm (3.80-5.20) L 02/03/17 04:53 Hgb 12.1 gm/dL (11.7-16.1) 02/03/17 04:53 Hct 35.0 % (35.0-45.0) 02/03/17 04:53 MCV 100.4 fl (81-100) H 02/03/17 04:53 MCH 34.6 pg (27.0-31.0) H 02/03/17 04:53 MCHC Differential 34.5 pg (28.0-36.0) 02/03/17 04:53 RDW 12.8 % (11.5-20.0) 02/03/17 04:53 Plt Count 302 Th/cmm (150-400) D 02/03/17 04:53 MPV 8.6 fl 02/03/17 04:53 Neutrophils % [employer] 02/01/17 15:55 Band Neutrophils % 7 % (0-10) 02/03/17 04:53 Lymphocytes % [employer] 02/01/17 15:55 Monocytes % [employer] 02/01/17 15:55 Eosinophils % 0.8 % (0.0-5.0) 01/25/17 01:48 Basophils % [employer] 02/01/17 15:55 Neutrophils (Manual) 89 % (40-80) H 02/03/17 04:53 Lymphocytes 2 % (20-50) L 02/03/17 04:53 Monocytes 2 % (2-10) 02/03/17 04:53 Eosinophils 0 % (0-5) 02/01/17 15:55 Basophils 1 % (0-3) 02/02/17 04:19 Metamyelocytes 2 % (0-0) H 02/02/17 04:19 Myelocytes 2 % 01/31/17 05:40 Platelet Estimate ADEQUATE (NORMAL) 02/03/17 04:53 Platelet Morphology GIANT PLATELETS SEEN (NORMAL) 02/03/17 04:53 Anisocytosis 1+ 02/03/17 04:53 RBC Morph Micro Appear ABNORMAL (NORMAL) 02/03/17 04:53 Smear Path Review SEE BELOW 02/03/17 04:53 Eos Smear Source URINE 02/02/17 06:00 Eos Smear Total Cells NONE SEEN (NONE SEEN) 02/02/17 06:00 PT 9.9 SECONDS (9.5-11.5) 01/25/17 01:48 INR 0.95 (0.5-1.4) 01/25/17 01:48 Specimen Source Arterial 01/27/17 09:13 Sample Site Right Radial 01/27/17 09:13 pH 7.36 (7.35-7.45) 01/27/17 09:13 pCO2 41.0 mmHg (35.0-45.0) 01/27/17 09:13 pO2 100.0 mmHg (80.0-100.0) 01/27/17 09:13 HCO3 23.2 mEq/L (20.0-26.0) 01/27/17 09:13 Base Excess -2.2 mEq/L (-3.0-3.0) 01/27/17 09:13 O2 Saturation 97.0 % (92.0-100.0) 01/27/17 09:13 Luther Test PASS 01/27/17 09:13 Vent Rate 13 01/27/17 09:13 Inspired O2 30 01/27/17 09:13 Tidal Volume 500 01/27/17 09:13 PEEP 5 01/27/17 09:13 Pressure (ins/psv/peep) N/A 01/26/17 21:00 Critical Value PW 01/27/17 09:13 Sodium 144 mEq/L (136-145) 02/03/17 04:53 Potassium 3.8 mEq/L (3.5-5.1) 02/03/17 04:53 Chloride 113 mEq/L (98-107) H 02/03/17 04:53 Carbon Dioxide 21.2 mEq/L (21.0-31.0) 02/03/17 04:53 Anion Gap 13.6 (7.0-16.0) 02/03/17 04:53 BUN 48 mg/dL (7-25) H 02/03/17 04:53 Creatinine 3.0 mg/dL (0.6-1.2) H 02/03/17 04:53 Est GFR ( Amer) 19.9 ml/min (>90) 02/03/17 04:53 Est GFR (Non-Af Amer) 16.4 ml/min 02/03/17 04:53 BUN/Creatinine Ratio 16.0 02/03/17 04:53 Glucose 150 mg/dL (70-105) H 02/03/17 04:53 POC Glucose 148 MG/DL (70 - 105) H 02/03/17 11:35 Hemoglobin A1c % 6.0 % (4.0-6.0) 01/25/17 01:48 Whole Bld Lactic Acid 1.68 mmol/L (0.60-1.99) 02/03/17 04:53 Uric Acid 4.4 mg/dL (2.3-6.6) 02/02/17 04:19 Calcium 7.5 mg/dL (8.6-10.3) L 02/03/17 04:53 Phosphorus 5.3 mg/dL (2.5-5.0) H 02/03/17 04:53 Magnesium 1.6 mg/dL (1.9-2.7) L 02/03/17 04:53 Total Bilirubin 0.4 mg/dL (0.3-1.0) 02/03/17 04:53 AST 13 U/L (13-39) 02/03/17 04:53 ALT 5 U/L (7-52) L 02/03/17 04:53 Alkaline Phosphatase 43 U/L (34-104) 02/03/17 04:53 Troponin I < 0.01 ng/mL (0.01-0.05) L 01/25/17 01:48 Total Protein 3.8 gm/dL (6.0-8.3) L 02/03/17 04:53 Albumin 1.8 gm/dL (3.7-5.3) L 02/03/17 04:53 Globulin 2.0 gm/dL 02/03/17 04:53 Albumin/Globulin Ratio 0.9 (1.0-1.8) L 02/03/17 04:53 Triglycerides 98 mg/dL (<150) 01/25/17 01:48 Cholesterol 146 mg/dL (<200) 01/25/17 01:48 LDL Cholesterol Direct 37 mg/dL (75-193) L 01/25/17 01:48 HDL Cholesterol 83 mg/dL (23-92) 01/25/17 01:48 TSH 1.45 uIU/ml (0.34-5.60) 01/25/17 01:48 Urine Source RANDOM 02/02/17 06:00 Urine Color BROWN 02/02/17 06:00 Urine Clarity SL. CLOUDY (CLEAR) 02/02/17 06:00 Urine pH 6.0 02/02/17 06:00 Ur Specific [place] 1.025 (1.005-1.030) 02/02/17 06:00 Urine Protein >300 mg/dL (NEGATIVE) H 02/02/17 06:00 Urine Glucose (UA) NEGATIVE mg/dL (NEGATIVE) 02/02/17 06:00 Urine Ketones NEGATIVE mg/dL (NEGATIVE) 02/02/17 06:00 Urine Blood LARGE (NEGATIVE) H 02/02/17 06:00 Urine Nitrate NEGATIVE (NEGATIVE) 02/02/17 06:00 Urine Bilirubin SMALL (NEGATIVE) H 02/02/17 06:00 Urine Urobilinogen 0.2 E.U./dL (0.2 - 1.0) 02/02/17 06:00 Ur Leukocyte Esterase NEGATIVE (NEGATIVE) 02/02/17 06:00 Urine RBC 50-100 /hpf (0-5) H 02/02/17 06:00 Urine WBC 6-10 /hpf (0-5) H 02/02/17 06:00 Ur Epithelial Cells MODERATE /lpf (FEW) 02/02/17 06:00 Amorphous Sediment MANY URATES (NONE SEEN) 02/02/17 06:00 Urine Bacteria MODERATE /hpf (NONE SEEN) 02/02/17 06:00 Ur Random Sodium 59 mmol/L 02/02/17 06:00 Urine Creatinine 129.0 mg/dl (28.0-217.0) 02/02/17 06:00 Vancomycin Trough 6.1 ug/mL (10-20) L 01/29/17 23:03 Random Vancomycin 25.5 ug/mL (5.0-40.0) 02/03/17 04:53 Salicylates < 25.0 mg/L (30.0-100.0) L 01/25/17 01:48 Urine Opiates Screen POSITIVE (NEGATIVE) H 01/25/17 03:00 Acetaminophen < 10.0 ug/mL (10.0-30.0) L 01/25/17 01:48 Ur Barbiturates Screen NEGATIVE (NEGATIVE) 01/25/17 03:00 Ur Phencyclidine Scrn NEGATIVE (NEGATIVE) 01/25/17 03:00 Amphetamines Screen POSITIVE (NEGATIVE) H 01/25/17 03:00 U Methamphetamines Scrn POSITIVE (NEGATIVE) H 01/25/17 03:00 U Benzodiazepines Scrn NEGATIVE (NEGATIVE) 01/25/17 03:00 U Cocaine Metab Screen NEGATIVE (NEGATIVE) 01/25/17 03:00 U Cannabinoids Screen NEGATIVE (NEGATIVE) 01/25/17 03:00 Ethyl Alcohol < 10 mg/dL (0-10) 01/25/17 01:48 RPR NONREACTIVE (NONREACTIVE) 01/25/17 01:48 HIV 1&2 Antibody Screen NEGATIVE (NEG) 01/26/17 05:02 - Physical Exam Vitals and I&O: Vital Signs Temp 99.2 F 02/03/17 13:00 Pulse 124 02/03/17 13:00 Resp 12 02/03/17 13:00 BP 127/55 02/03/17 13:00 Pulse Ox 96 02/03/17 13:00 Intake & Output 02/02/17 02/03/17 02/03/17 18:59 06:59 18:59 Intake Total 1100 100 100 Output Total 100 770 Balance 1000 -670 100 Intake: Intake, IV Amount 1100 100 100 Meropenem 500 mg In 100 Sodium Chloride 0.9% 100 ml @ 100 mls/hr IV Q8H ANISH Rx#:[id number] Piperacillin Sodium/ 100 100 Tazobact 4.5 gm In Sodium Chloride 0.9% 100 ml @ 100 mls/hr IV Q8HR [facility]ISH Rx #:[id number] Sodium Chloride 0.9% 1, 1000 000 ml @ 100 mls/hr IV . Q10H ANISH Rx#:[id number] Output: Drainage 370 Left Lower Abdomen 130 Right Lower Abdomen 240 Urine 100 400 Active Medications: Current Medications Clonidine HCl (Catapres) 0.1 mg PO Q4H PRN PRN Reason: sbp >160 and diastolic >100 Stop: 03/31/17 16:11 Last Admin: 01/31/17 17:06 Dose: 0.1 mg Diltiazem HCl (Cardizem) 20 mg IVP Q4HR PRN PRN Reason: HR>120 Stop: 04/02/17 08:57 Last Admin: 02/03/17 10:30 Dose: 20 mg Enalaprilat (Vasotec) 2.5 mg IVP Q4HR PRN PRN Reason: systolic BP >160 Stop: 04/02/17 11:33 Hydromorphone HCl (Dilaudid) 1 mg IVP Q3H PRN PRN Reason: MODERATE PAIN Stop: 03/26/17 17:55 Last Admin: 02/02/17 09:14 Dose: 1 mg Hydromorphone HCl (Dilaudid) 2 mg IVP Q3H PRN PRN Reason: SEVERE PAIN Stop: 03/26/17 17:56 Last Admin: 02/03/17 13:45 Dose: 2 mg Fluconazole 400mg/200mL (Diflucan) 400 mg in 200 mls @ 100 mls/hr IV Q24HR [facility] Stop: 04/02/17 16:44 Last Admin: 02/02/17 15:49 Dose: 100 mls/hr Sodium Chloride (Nacl 0.9%) 1,000 mls @ 100 mls/hr IV .Q10H [facility] Stop: 04/02/17 17:44 Last Admin: 02/03/17 05:25 Dose: 100 mls/hr Lactated Ringer's (Lactated Ringer) 1,000 mls @ 0 mls/hr IV .Q0M ANISH PRN Reason: TKO Stop: 02/03/17 18:29 Meropenem 500 mg/ Sodium (Chloride) 100 mls @ 100 mls/hr IV Q8H [facility] Stop: 04/04/17 07:44 Last Infusion: 02/03/17 09:45 Dose: Infused Insulin Aspart (Novolog) 0 units SUBQ Q6HR [facility]ISH PRN Reason: Protocol Stop: 03/28/17 08:59 Last Admin: 02/03/17 11:37 Dose: Not Given Lactobacillus Rhamnosus (Culturelle) 1 each PO DAILY [facility] Stop: 03/29/17 08:59 Last Admin: 02/03/17 08:45 Dose: Not Given Meperidine HCl (Demerol) 12.5 mg IVP UD PRN PRN Reason: POST-OP PAIN Stop: 02/03/17 18:25 Miscellaneous (Probiotic Screen) 1 ea PRN PRN PRN Reason: PROTOCOL Stop: 03/28/17 13:21 Miscellaneous (Vancomycin Iv Per Pharmacy) 1 ea PRN [facility] Stop: 04/04/17 05:14 Ondansetron HCl (Zofran) 4 mg IV UD PRN PRN Reason: Nausea / Vomiting Stop: 04/03/17 18:25 Pantoprazole Sodium (Protonix) 40 mg IVP BID [facility] Stop: 04/01/17 16:59 Last Admin: 02/03/17 08:49 Dose: 40 mg General: no acute distress, well developed, well nourished HEENT: atraumatic, normocephalic, PERRLA, EOMI, moist mucous membrane Neck: supple, no thyromegaly, no lymphadenopathy Cardiovascular: S1S2, regular Lungs: clear to auscultation bilaterally, clear to percussion Abdomen: soft, no tender, no distended, no mass Extremities: no cyanosis, no clubbing, no edema Neurological: awake, alert, oriented, CN 2-12 intact Skin: intact - Procedures Procedures: Procedures Procedure Code Date BYPASS STOMACH TO JEJUNUM, OPEN APPROACH [id number] 01/25/17 FUSION OF STOMACH AND BOWEL 81147 01/25/17 REMOVAL OF GALLBLADDER 36324 01/25/17 REPAIR STOMACH, OPEN APPROACH [id number] 01/25/17 RESECTION OF GALLBLADDER, OPEN APPROACH [id number] 01/25/17 RESPIRATORY VENTILATION, LESS THAN 24 CONSECUTIVE HOURS [id number] 01/25/17 STOMACH SURGERY PROCEDURE 27171 01/25/17 VENT MGMT INPAT INIT DAY 68948 01/25/17 Infectious Disease Assmt/Plan - Problem List Patient Problems: All Active Problems H/O diabetes mellitus (Acute) Z86.39 H/O drug abuse (Acute) Z87.898 H/O: HTN (hypertension) (Acute) Z86.79 POSTCHOLECYSTECTOMY (Acute) UTI (urinary tract infection) (Acute) closeure og gastric perf (Acute) cplacement of new gj (Acute) h/o dementia (Acute) lysisi of adhesions (Acute) r/o sepsis (Acute) s/p surgery (Acute) septic shock (Acute) tachycardia (Acute) - Assessment Assessment: 1. Peritonitis. 2. Gastric bypass perforation. 3. S/p exploratory lap and repair anastomotic leak/ perforation. 4. UTI. 5. Leukocytosis worse with candidemia. 6. malposition of central line. - Plan Plan: Continue Ceftriaxone and flagyl. continue vanco iv. check lactic acid and blood cultures. Nutritional Asmnt/Malnutr-PDOC - Dietary Evaluation Malnutrition Findings (Please click <Entered> for more info): Nutritional Asmnt/Malnutrition Start: 01/26/17 14: 32 Text: Status: Complete Freq: Document 01/26/17 14:32 GSUN (Rec: 01/26/17 14:51 GSUN [id number]) Nutritional Asmnt/Malnutrition Patient General Information Nutritional Screening Consult Diagnosis UTI, leukocytosis maybe reactive versus sepsis Pertinent Medical Hx/Surgical Hx HTN, DM, drug abuse, dementia Subjective Information 71 year old female, homeless. RD consult for BG >180. Pt was NPO at time of visit for CT abdomen/pelvis scan. Pt was agitated and in pain during visit. Pt refused to answer RD questions, repeatedly asked about bowel prep processes, then yelled at RD to leave. Pertinent Medications Dilaudid, Zofran Pertinent Labs 01/25: A1c 6, glucose 319H Nutritional Hx/Data Height 1.73 m Height (Calculated Centimeters) 172.7 Current Weight (lbs) 69.899 kg Weight (Calculated Kilograms) 69.9 Weight (Calculated Grams) 14670.6 [place] Body Weight 140lb Weight Status Approriate GI Symptoms Cultural/Ethnic/Ep[employer] Belief Unknown. Usual diet at home Unknown. Estimated Nutritional Goals BEE in Kcals: Using Current wt Calories/Kcals/Kg CBW 70kg Kcals Calculated 1750-2100kcal (25-30kcal/kg, ? possible sepsis) Protein: Using Current wt Protein Calculated 70g (1g/kg) Fluid: ml 1750-2100ml (1ml/kcal) Nutritional Problem 1. Problem Problem Altered nutrition related laboratory values related to Etiology DM aeb Signs/Symptoms: H&P, glucose 319H on adm Intervention/Recommendation Comments 1. NPO at time of visit. Diet advancement per MD, recommend [id number] to promtoe glycemic control. 2. Provide edu on DM as needed . Expected Outcomes/Goals Expected Outcomes/Goals 1. Po [place] to meet 100% of estimated nutritional needs.
--- NOTE | 2017-02-03 15:02 | General Progress Note ---
Subjective - Review of Systems Service Date: 02/03/17 Subjective: still w/ abd. pain Objective - Results Result Diagrams: 02/03/17 04:53 02/03/17 04:53 Recent Labs: Laboratory Last Values WBC 56.4 Th/cmm (4.8-10.8) H* D 02/03/17 04:53 RBC 3.49 Mil/cmm (3.80-5.20) L 02/03/17 04:53 Hgb 12.1 gm/dL (11.7-16.1) 02/03/17 04:53 Hct 35.0 % (35.0-45.0) 02/03/17 04:53 MCV 100.4 fl (81-100) H 02/03/17 04:53 MCH 34.6 pg (27.0-31.0) H 02/03/17 04:53 MCHC Differential 34.5 pg (28.0-36.0) 02/03/17 04:53 RDW 12.8 % (11.5-20.0) 02/03/17 04:53 Plt Count 302 Th/cmm (150-400) D 02/03/17 04:53 MPV 8.6 fl 02/03/17 04:53 Neutrophils % OUTPLACEMENT CONSULTANT 02/01/17 15:55 Band Neutrophils % 7 % (0-10) 02/03/17 04:53 Lymphocytes % OUTPLACEMENT CONSULTANT 02/01/17 15:55 Monocytes % OUTPLACEMENT CONSULTANT 02/01/17 15:55 Eosinophils % 0.8 % (0.0-5.0) 01/25/17 01:48 Basophils % OUTPLACEMENT CONSULTANT 02/01/17 15:55 Neutrophils (Manual) 89 % (40-80) H 02/03/17 04:53 Lymphocytes 2 % (20-50) L 02/03/17 04:53 Monocytes 2 % (2-10) 02/03/17 04:53 Eosinophils 0 % (0-5) 02/01/17 15:55 Basophils 1 % (0-3) 02/02/17 04:19 Metamyelocytes 2 % (0-0) H 02/02/17 04:19 Myelocytes 2 % 01/31/17 05:40 Platelet Estimate ADEQUATE (NORMAL) 02/03/17 04:53 Platelet Morphology GIANT PLATELETS SEEN (NORMAL) 02/03/17 04:53 Anisocytosis 1+ 03/30/17 04:53 RBC Morph Micro Appear ABNORMAL (NORMAL) 02/03/17 04:53 Smear Path Review SEE BELOW 02/03/17 04:53 Eos Smear Source URINE 02/02/17 06:00 Eos Smear Total Cells NONE SEEN (NONE SEEN) 02/02/17 06:00 PT 9.9 SECONDS (9.5-11.5) 01/25/17 01:48 INR 0.95 (0.5-1.4) 01/25/17 01:48 Specimen Source Arterial 01/27/17 09:13 Sample Site Right Radial 01/27/17 09:13 pH 7.36 (7.35-7.45) 01/27/17 09:13 pCO2 41.0 mmHg (35.0-45.0) 01/27/17 09:13 pO2 100.0 mmHg (80.0-100.0) 01/27/17 09:13 HCO3 23.2 mEq/L (20.0-26.0) 01/27/17 09:13 Base Excess -2.2 mEq/L (-3.0-3.0) 01/27/17 09:13 O2 Saturation 97.0 % (92.0-100.0) 01/27/17 09:13 Luther Test PASS 01/27/17 09:13 Vent Rate 13 01/27/17 09:13 Inspired O2 30 01/27/17 09:13 Tidal Volume 500 01/27/17 09:13 PEEP 5 01/27/17 09:13 Pressure (ins/psv/peep) N/A 01/26/17 21:00 Critical Value PW 01/27/17 09:13 Sodium 144 mEq/L (136-145) 02/03/17 04:53 Potassium 3.8 mEq/L (3.5-5.1) 02/03/17 04:53 Chloride 113 mEq/L (98-107) H 02/03/17 04:53 Carbon Dioxide 21.2 mEq/L (21.0-31.0) 02/03/17 04:53 Anion Gap 13.6 (7.0-16.0) 02/03/17 04:53 BUN 48 mg/dL (7-25) H 02/03/17 04:53 Creatinine 3.0 mg/dL (0.6-1.2) H 02/03/17 04:53 Est GFR ( Amer) 19.9 ml/min (>90) 02/03/17 04:53 Est GFR (Non-Af Amer) 16.4 ml/min 02/03/17 04:53 BUN/Creatinine Ratio 16.0 02/03/17 04:53 Glucose 150 mg/dL (70-105) H 02/03/17 04:53 POC Glucose 148 MG/DL (70 - 105) H 02/03/17 11:35 Hemoglobin A1c % 6.0 % (4.0-6.0) 01/25/17 01:48 Whole Bld Lactic Acid 1.68 mmol/L (0.60-1.99) 02/03/17 04:53 Uric Acid 4.4 mg/dL (2.3-6.6) 02/02/17 04:19 Calcium 7.5 mg/dL (8.6-10.3) L 02/03/17 04:53 Phosphorus 5.3 mg/dL (2.5-5.0) H 02/03/17 04:53 Magnesium 1.6 mg/dL (1.9-2.7) L 02/03/17 04:53 Total Bilirubin 0.4 mg/dL (0.3-1.0) 02/03/17 04:53 AST 13 U/L (13-39) 02/03/17 04:53 ALT 5 U/L (7-52) L 02/03/17 04:53 Alkaline Phosphatase 43 U/L (34-104) 02/03/17 04:53 Troponin I < 0.01 ng/mL (0.01-0.05) L 01/25/17 01:48 Total Protein 3.8 gm/dL (6.0-8.3) L 02/03/17 04:53 Albumin 1.8 gm/dL (3.7-5.3) L 02/03/17 04:53 Globulin 2.0 gm/dL 02/03/17 04:53 Albumin/Globulin Ratio 0.9 (1.0-1.8) L 02/03/17 04:53 Triglycerides 98 mg/dL (<150) 01/25/17 01:48 Cholesterol 146 mg/dL (<200) 01/25/17 01:48 LDL Cholesterol Direct 37 mg/dL (75-193) L 01/25/17 01:48 HDL Cholesterol 83 mg/dL (23-92) 01/25/17 01:48 TSH 1.45 uIU/ml (0.34-5.60) 01/25/17 01:48 Urine Source RANDOM 02/02/17 06:00 Urine Color BROWN 02/02/17 06:00 Urine Clarity SL. CLOUDY (CLEAR) 02/02/17 06:00 Urine pH 6.0 02/02/17 06:00 Ur Specific Arroyo 1.025 (1.005-1.030) 02/02/17 06:00 Urine Protein >300 mg/dL (NEGATIVE) H 02/02/17 06:00 Urine Glucose (UA) NEGATIVE mg/dL (NEGATIVE) 02/02/17 06:00 Urine Ketones NEGATIVE mg/dL (NEGATIVE) 02/02/17 06:00 Urine Blood LARGE (NEGATIVE) H 02/02/17 06:00 Urine Nitrate NEGATIVE (NEGATIVE) 02/02/17 06:00 Urine Bilirubin SMALL (NEGATIVE) H 02/02/17 06:00 Urine Urobilinogen 0.2 E.U./dL (0.2 - 1.0) 02/02/17 06:00 Ur Leukocyte Esterase NEGATIVE (NEGATIVE) 02/02/17 06:00 Urine RBC 50-100 /hpf (0-5) H 02/02/17 06:00 Urine WBC 6-10 /hpf (0-5) H 02/02/17 06:00 Ur Epithelial Cells MODERATE /lpf (FEW) 02/02/17 06:00 Amorphous Sediment MANY URATES (NONE SEEN) 02/02/17 06:00 Urine Bacteria MODERATE /hpf (NONE SEEN) 02/02/17 06:00 Ur Random Sodium 59 mmol/L 02/02/17 06:00 Urine Creatinine 129.0 mg/dl (28.0-217.0) 02/02/17 06:00 Vancomycin Trough 6.1 ug/mL (10-20) L 01/29/17 23:03 Random Vancomycin 25.5 ug/mL (5.0-40.0) 02/03/17 04:53 Salicylates < 25.0 mg/L (30.0-100.0) L 01/25/17 01:48 Urine Opiates Screen POSITIVE (NEGATIVE) H 01/25/17 03:00 Acetaminophen < 10.0 ug/mL (10.0-30.0) L 01/25/17 01:48 Ur Barbiturates Screen NEGATIVE (NEGATIVE) 01/25/17 03:00 Ur Phencyclidine Scrn NEGATIVE (NEGATIVE) 01/25/17 03:00 Amphetamines Screen POSITIVE (NEGATIVE) H 01/25/17 03:00 U Methamphetamines Scrn POSITIVE (NEGATIVE) H 01/25/17 03:00 U Benzodiazepines Scrn NEGATIVE (NEGATIVE) 01/25/17 03:00 U Cocaine Metab Screen NEGATIVE (NEGATIVE) 01/25/17 03:00 U Cannabinoids Screen NEGATIVE (NEGATIVE) 01/25/17 03:00 Ethyl Alcohol < 10 mg/dL (0-10) 01/25/17 01:48 RPR NONREACTIVE (NONREACTIVE) 01/25/17 01:48 HIV 1&2 Antibody Screen NEGATIVE (NEG) 01/26/17 05:02 - Physical Exam Vitals and I&O: Vital Signs Temp 99 F 02/03/17 14:00 Pulse 118 02/03/17 14:00 Resp 12 02/03/17 14:00 BP 119/59 02/03/17 14:00 Pulse Ox 95 02/03/17 14:00 Intake & Output 02/02/17 02/03/17 02/03/17 18:59 06:59 18:59 Intake Total 1100 100 100 Output Total 100 770 Balance 1000 -670 100 Intake: Intake, IV Amount 1100 100 100 Meropenem 500 mg In 100 Sodium Chloride 0.9% 100 ml @ 100 mls/hr IV Q8H [facility] Rx#:[id number] Piperacillin Sodium/ 100 100 Tazobact 4.5 gm In Sodium Chloride 0.9% 100 ml @ 100 mls/hr IV Q8HR [facility] Rx #:[id number] Sodium Chloride 0.9% 1, 1000 000 ml @ 100 mls/hr IV . Q10H [facility] Rx#:[id number] Output: Drainage 370 Left Lower Abdomen 130 Right Lower Abdomen 240 Urine 100 400 Active Medications: Current Medications Clonidine HCl (Catapres) 0.1 mg PO Q4H PRN PRN Reason: sbp >160 and diastolic >100 Stop: 03/31/17 16:11 Last Admin: 01/31/17 17:06 Dose: 0.1 mg Diltiazem HCl (Cardizem) 20 mg IVP Q4HR PRN PRN Reason: HR>120 Stop: 04/02/17 08:57 Last Admin: 02/03/17 10:30 Dose: 20 mg Enalaprilat (Vasotec) 2.5 mg IVP Q4HR PRN PRN Reason: systolic BP >160 Stop: 04/02/17 11:33 Hydromorphone HCl (Dilaudid) 1 mg IVP Q3H PRN PRN Reason: MODERATE PAIN Stop: 03/26/17 17:55 Last Admin: 02/02/17 09:14 Dose: 1 mg Hydromorphone HCl (Dilaudid) 2 mg IVP Q3H PRN PRN Reason: SEVERE PAIN Stop: 03/26/17 17:56 Last Admin: 02/03/17 13:45 Dose: 2 mg Fluconazole 400mg/200mL (Diflucan) 400 mg in 200 mls @ 100 mls/hr IV Q24HR [facility] Stop: 04/02/17 16:44 Last Admin: 02/02/17 15:49 Dose: 100 mls/hr Sodium Chloride (Nacl 0.9%) 1,000 mls @ 100 mls/hr IV .Q10H [facility] Stop: 04/02/17 17:44 Last Admin: 02/03/17 05:25 Dose: 100 mls/hr Lactated Ringer's (Lactated Ringer) 1,000 mls @ 0 mls/hr IV .Q0M [facility] PRN Reason: TKO Stop: 02/03/17 18:29 Meropenem 500 mg/ Sodium (Chloride) 100 mls @ 100 mls/hr IV Q8H [facility] Stop: 04/04/17 07:44 Last Infusion: 02/03/17 09:45 Dose: Infused Insulin Aspart (Novolog) 0 units SUBQ Q6HR [facility] PRN Reason: Protocol Stop: 03/28/17 08:59 Last Admin: 02/03/17 11:37 Dose: Not Given Lactobacillus Rhamnosus (Culturelle) 1 each PO DAILY [facility] Stop: 03/29/17 08:59 Last Admin: 02/03/17 08:45 Dose: Not Given Meperidine HCl (Demerol) 12.5 mg IVP UD PRN PRN Reason: POST-OP PAIN Stop: 02/03/17 18:25 Miscellaneous (Probiotic Screen) 1 ea PRN PRN PRN Reason: PROTOCOL Stop: 03/28/17 13:21 Miscellaneous (Vancomycin Iv Per Pharmacy) 1 ea PRN [facility] Stop: 04/04/17 05:14 Ondansetron HCl (Zofran) 4 mg IV UD PRN PRN Reason: Nausea / Vomiting Stop: 04/03/17 18:25 Pantoprazole Sodium (Protonix) 40 mg IVP BID [facility] Stop: 04/01/17 16:59 Last Admin: 02/03/17 08:49 Dose: 40 mg General: Other (drowsy) HEENT: Atraumatic, Mucous membr. moist/pink Neck: Supple, +2 carotid pulse wo bruit Cardiovascular: Regular rate, Normal S1, Normal S2 Lungs: Clear to auscultation Abdomen: Bowel sounds, Soft, Tender Extremities: no Edema Neurological: Sensation intact Skin: no Rash Psych/Mental Status: Mental status NL (drowsy) - Procedures Procedures: Procedures Procedure Code Date BYPASS STOMACH TO JEJUNUM, OPEN APPROACH [id number] 01/25/17 FUSION OF STOMACH AND BOWEL 60798 01/25/17 REMOVAL OF GALLBLADDER 99420 01/25/17 REPAIR STOMACH, OPEN APPROACH [id number] 01/25/17 RESECTION OF GALLBLADDER, OPEN APPROACH [id number] 01/25/17 RESPIRATORY VENTILATION, LESS THAN 24 CONSECUTIVE HOURS [id number] 01/25/17 STOMACH SURGERY PROCEDURE 61322 01/25/17 VENT MGMT INPAT INIT DAY 89992 01/25/17 Assessment/Plan - Problem List Patient Problems: All Active Problems H/O diabetes mellitus (Acute) Z86.39 H/O drug abuse (Acute) Z87.898 H/O: HTN (hypertension) (Acute) Z86.79 POSTCHOLECYSTECTOMY (Acute) UTI (urinary tract infection) (Acute) closeure og gastric perf (Acute) cplacement of new gj (Acute) h/o dementia (Acute) lysisi of adhesions (Acute) r/o sepsis (Acute) s/p surgery (Acute) septic shock (Acute) tachycardia (Acute) - Assessment Assessment: MELECIO Septic shock 2nd to acute peritonitis w/ large abcess ruptured viscus S/P exp. lap ALOC 2nd to Met Enceph type 2 DM Alzh Dementia Sinus tach Severe Malnutrition - Plan Plan: Lab - Result Diagrams 02/02/17 04:19 02/02/17 04:19 Current Medications Clonidine HCl (Catapres) 0.1 mg PO Q4H PRN PRN Reason: sbp >160 and diastolic >100 Stop: 03/31/17 16:11 Last Admin: 01/31/17 17:06 Dose: 0.1 mg Diltiazem HCl (Cardizem) 20 mg IVP Q4HR PRN PRN Reason: HR>120 Stop: 04/02/17 08:57 Last Admin: 02/01/17 09:20 Dose: 20 mg Enalaprilat (Vasotec) 2.5 mg IVP Q4HR PRN PRN Reason: systolic BP >160 Stop: 04/02/17 11:33 Hydromorphone HCl (Dilaudid) 1 mg IVP Q3H PRN PRN Reason: MODERATE PAIN Stop: 03/26/17 17:55 Last Admin: 02/02/17 09:14 Dose: 1 mg Hydromorphone HCl (Dilaudid) 2 mg IVP Q3H PRN PRN Reason: SEVERE PAIN Stop: 03/26/17 17:56 Last Admin: 02/02/17 03:40 Dose: 2 mg Metronidazole (Flagyl) 500 mg in 100 mls @ 100 mls/hr IV Q8HR [facility] Stop: 03/28/17 04:59 Last Admin: 02/02/17 13:39 Dose: 100 mls/hr Fluconazole 400mg/200mL (Diflucan) 400 mg in 200 mls @ 100 mls/hr IV Q24HR [facility] Stop: 04/02/17 16:44 Last Infusion: 02/01/17 19:20 Dose: Infused Piperacillin Sod/Tazobactam (Sod 4.5 gm/ Sodium Chloride) 100 mls @ 100 mls/hr IV Q8HR [facility] Stop: 04/02/17 18:29 Last Admin: 02/02/17 12:45 Dose: 100 mls/hr Sodium Chloride (Nacl 0.9%) 1,000 mls @ 100 mls/hr IV .Q10H [facility] Stop: 04/02/17 17:44 Last Admin: 02/02/17 05:55 Dose: 100 mls/hr Insulin Aspart (Novolog) 0 units SUBQ Q6HR [facility] PRN Reason: Protocol Stop: 03/28/17 08:59 Last Admin: 02/02/17 13:40 Dose: 4 units Lactobacillus Rhamnosus (Culturelle) 1 each PO DAILY [facility] Stop: 03/29/17 08:59 Last Admin: 02/02/17 08:56 Dose: Not Given Meperidine HCl (Demerol) 12.5 mg IVP Q2M PRN PRN Reason: POST-OP PAIN Stop: 03/27/17 19:19 Miscellaneous (Vancomycin Iv Per Pharmacy) 1 ea MC PRN [facility] Stop: 03/28/17 02:29 Miscellaneous (Probiotic Screen) 1 ea PRN PRN PRN Reason: PROTOCOL Stop: 03/28/17 13:21 Ondansetron HCl (Zofran) 4 mg IV Q6H PRN PRN Reason: Nausea / Vomiting Stop: 03/26/17 16:27 Last Admin: 01/31/17 17:13 Dose: 4 mg Pantoprazole Sodium (Protonix) 40 mg IVP BID [facility] Stop: 04/01/17 16:59 Last Admin: 02/02/17 08:56 Dose: Not Given WBC up to 56.4 Kidney fnc worse, BUN/CR 48/3 still oliguric, if no improvement consider dialysis continue IVF f/u panculture continue Flagyl, Fluconazole, Zosyn f/u electrolytes, cbc Nutritional Asmnt/Malnutr-PDOC - Dietary Evaluation Malnutrition Findings (Please click <Entered> for more info): Nutritional Asmnt/Malnutrition Start: 01/26/17 14: 32 Text: Status: Complete Freq: Document 01/26/17 14:32 GSUN (Rec: 01/26/17 14:51 GSUN [id number]) Nutritional Asmnt/Malnutrition Patient General Information Nutritional Screening Consult Diagnosis UTI, leukocytosis maybe reactive versus sepsis Pertinent Medical Hx/Surgical Hx HTN, DM, drug abuse, dementia Subjective Information 71 year old female, homeless. RD consult for BG >180. Pt was NPO at time of visit for CT abdomen/pelvis scan. Pt was agitated and in pain during visit. Pt refused to answer RD questions, repeatedly asked about bowel prep processes, then yelled at RD to leave. Pertinent Medications Dilaudid, Zofran Pertinent Labs 01/25: A1c 6, glucose 319H Nutritional Hx/Data Height 1.73 m Height (Calculated Centimeters) 172.7 Current Weight (lbs) 69.899 kg Weight (Calculated Kilograms) 69.9 Weight (Calculated Grams) 29690.6 [place] Body Weight 140lb Weight Status Approriate GI Symptoms Cultural/Ethnic/Orthodox Belief Unknown. Usual diet at home Unknown. Estimated Nutritional Goals BEE in Kcals: Using Current wt Calories/Kcals/Kg CBW 70kg Kcals Calculated 1750-2100kcal (25-30kcal/kg, ? possible sepsis) Protein: Using Current wt Protein Calculated 70g (1g/kg) Fluid: ml 1750-2100ml (1ml/kcal) Nutritional Problem 1. Problem Problem Altered nutrition related laboratory values related to Etiology DM aeb Signs/Symptoms: H&P, glucose 319H on adm Intervention/Recommendation Comments 1. NPO at time of visit. Diet advancement per MD, recommend [id number] to promtoe glycemic control. 2. Provide edu on DM as needed . Expected Outcomes/Goals Expected Outcomes/Goals 1. [place] to meet 100% of estimated nutritional needs.
[2017-02-03] MEDS: Fluconazole 400mg/200mL 400 MG/200 ML BAG IV SCH (15:46)
[2017-02-03] MEDS: HYDROmorphone 1 mg/mL 1mL Syr IVP PRN (16:10)
[2017-02-04] MEDS: HYDROmorphone 2 mg/mL 1mL Vial IVP PRN ×4 (00:05→23:23)
[2017-02-04 05:21] LABS: MEAN PLATELET VOLUME 7.9 fl
[2017-02-04 05:34] LABS: HEMOGLOBIN 10.2 gm/dL (11.7-16.1); MEAN CELL VOLUME 98.3 fl (81-100); MEAN CORPUSCULAR HEMOGLOBIN 34.7 pg (27.0-31.0); MEAN CORPUSCULAR HGB CONC 35.3 pg (28.0-36.0); PLATELET COUNT 327 Th/cmm (150-400); RED BLOOD COUNT 2.95 Mil/cmm (3.80-5.20); RED CELL DISTRIBUTION WIDTH 13.3 % (11.5-20.0)
[2017-02-04 05:43] LABS: ALB/GLOB RATIO 0.8 (1.0-1.8); ANION GAP 10.1 (7.0-16.0); BILIRUBIN,TOTAL 0.3 mg/dL (0.3-1.0); CALCIUM SERUM 7.6 mg/dL (8.6-10.3); CARBON DIOXIDE 21.6 mEq/L (21.0-31.0); CREATININE - SERUM 3.1 mg/dL (0.6-1.2); PHOSPHOROUS 5.8 mg/dL (2.5-5.0); POTASSIUM SERUM 3.7 mEq/L (3.5-5.1)
[2017-02-04 05:47] LABS: WHITE BLOOD COUNT 43.4 Th/cmm (4.8-10.8)
[2017-02-04] MEDS: INSULIN ASPART, RECOMBINANT 100 UNITS/ML SUBQ SCH ×4 (06:00→17:51)
[2017-02-04] MEDS: Meropenem 500 MG in Sodium Chloride 0.9% 100 ML IV SCH ×3 (07:45→23:23)
[2017-02-04 08:12] LABS: BAND NEUTROPHILE 7 % (0-10); NEUTROPHILS 89 % (40-80); PLATELET ESTIMATE ADEQUATE (NORMAL); PLATELET MORPHOLOGY NORMAL (NORMAL); TOTAL CELLS COUNTED 100
[2017-02-04] MEDS: Lactobacillus Rhamnosus 10 Billion CFU Capsule PO SCH (08:29)
--- NOTE | 2017-02-04 09:40 | Internal Medicine Prog Note ---
Internal Medicine Subjective - Subjective Service Date: 02/04/17 Patient seen and examined:: with staff Patient is:: awake, verbal, in bed, denies any new complaints Patient Complaints of:: other (thirsty) Per staff patient is:: no adverse event, no episodes of fall (stict npo) Internal Medicine Objective - Results Result Diagrams: 02/04/17 04:39 02/04/17 04:39 Recent Labs: Laboratory Last Values WBC 43.4 Th/cmm (4.8-10.8) H* D 02/04/17 04:39 RBC 2.95 Mil/cmm (3.80-5.20) L 02/04/17 04:39 Hgb 10.2 gm/dL (11.7-16.1) L 02/04/17 04:39 Hct 29.0 % (35.0-45.0) L D 02/04/17 04:39 MCV 98.3 fl (81-100) 02/04/17 04:39 MCH 34.7 pg (27.0-31.0) H 02/04/17 04:39 MCHC Differential 35.3 pg (28.0-36.0) 02/04/17 04:39 RDW 13.3 % (11.5-20.0) 02/04/17 04:39 Plt Count 327 Th/cmm (150-400) 02/04/17 04:39 MPV 7.9 fl 02/04/17 04:39 Neutrophils % CHALK CUTTER 02/04/17 04:39 Band Neutrophils % 7 % (0-10) 02/04/17 04:39 Lymphocytes % CH[facility] CUTTER 02/04/17 04:39 Monocytes % CHALK CUTTER 02/01/17 15:55 Eosinophils % CHALK CUTTER 02/04/17 04:39 Basophils % CHALK CUTTER 02/01/17 15:55 Neutrophils (Manual) 89 % (40-80) H 02/04/17 04:39 Lymphocytes 2 % (20-50) L 02/04/17 04:39 Monocytes 2 % (2-10) 02/04/17 04:39 Eosinophils 0 % (0-5) 02/01/17 15:55 Basophils 1 % (0-3) 02/02/17 04:19 Metamyelocytes 2 % (0-0) H 02/02/17 04:19 Myelocytes 2 % 01/31/17 05:40 Platelet Estimate ADEQUATE (NORMAL) 02/04/17 04:39 Platelet Morphology NORMAL (NORMAL) 02/04/17 04:39 Anisocytosis 1+ 02/03/17 04:53 RBC Morph Micro Appear NORMAL (NORMAL) 02/04/17 04:39 Smear Path Review SEE BELOW 02/03/17 04:53 Eos Smear Source URINE 02/02/17 06:00 Eos Smear Total Cells NONE SEEN (NONE SEEN) 02/02/17 06:00 PT 9.9 SECONDS (9.5-11.5) 01/25/17 01:48 INR 0.95 (0.5-1.4) 01/25/17 01:48 Specimen Source Arterial 01/27/17 09:13 Sample Site Right Radial 01/27/17 09:13 pH 7.36 (7.35-7.45) 01/27/17 09:13 pCO2 41.0 mmHg (35.0-45.0) 01/27/17 09:13 pO2 100.0 mmHg (80.0-100.0) 01/27/17 09:13 HCO3 23.2 mEq/L (20.0-26.0) 01/27/17 09:13 Base Excess -2.2 mEq/L (-3.0-3.0) 01/27/17 09:13 O2 Saturation 97.0 % (92.0-100.0) 01/27/17 09:13 Luther Test PASS 01/27/17 09:13 Vent Rate 13 01/27/17 09:13 Inspired O2 30 01/27/17 09:13 Tidal Volume 500 01/27/17 09:13 PEEP 5 01/27/17 09:13 Pressure (ins/psv/peep) N/A 01/26/17 21:00 Critical Value PW 01/27/17 09:13 Sodium 146 mEq/L (136-145) H 02/04/17 04:39 Potassium 3.7 mEq/L (3.5-5.1) 02/04/17 04:39 Chloride 118 mEq/L (98-107) H 02/04/17 04:39 Carbon Dioxide 21.6 mEq/L (21.0-31.0) 02/04/17 04:39 Anion Gap 10.1 (7.0-16.0) 02/04/17 04:39 BUN 59 mg/dL (7-25) H 02/04/17 04:39 Creatinine 3.1 mg/dL (0.6-1.2) H 02/04/17 04:39 Est GFR ( Amer) 19.2 ml/min (>90) 02/04/17 04:39 Est GFR (Non-Af Amer) 15.8 ml/min 02/04/17 04:39 BUN/Creatinine Ratio 19.0 02/04/17 04:39 Glucose 135 mg/dL (70-105) H 02/04/17 04:39 POC Glucose 128 MG/DL (70 - 105) H 02/04/17 06:59 Hemoglobin A1c % 6.0 % (4.0-6.0) 01/25/17 01:48 Whole Bld Lactic Acid 1.68 mmol/L (0.60-1.99) 02/03/17 04:53 Uric Acid 4.4 mg/dL (2.3-6.6) 02/02/17 04:19 Calcium 7.6 mg/dL (8.6-10.3) L 02/04/17 04:39 Phosphorus 5.8 mg/dL (2.5-5.0) H 02/04/17 04:39 Magnesium 1.9 mg/dL (1.9-2.7) 02/04/17 04:39 Total Bilirubin 0.3 mg/dL (0.3-1.0) 02/04/17 04:39 AST 17 U/L (13-39) 02/04/17 04:39 ALT 9 U/L (7-52) 02/04/17 04:39 Alkaline Phosphatase 65 U/L (34-104) 02/04/17 04:39 Troponin I < 0.01 ng/mL (0.01-0.05) L 01/25/17 01:48 Total Protein 4.2 gm/dL (6.0-8.3) L 02/04/17 04:39 Albumin 1.9 gm/dL (3.7-5.3) L 02/04/17 04:39 Globulin 2.3 gm/dL 02/04/17 04:39 Albumin/Globulin Ratio 0.8 (1.0-1.8) L 02/04/17 04:39 Triglycerides 98 mg/dL (<150) 01/25/17 01:48 Cholesterol 146 mg/dL (<200) 01/25/17 01:48 LDL Cholesterol Direct 37 mg/dL (75-193) L 01/25/17 01:48 HDL Cholesterol 83 mg/dL (23-92) 01/25/17 01:48 TSH 1.45 uIU/ml (0.34-5.60) 01/25/17 01:48 Urine Source RANDOM 02/02/17 06:00 Urine Color BROWN 02/02/17 06:00 Urine Clarity SL. CLOUDY (CLEAR) 02/02/17 06:00 Urine pH 6.0 02/02/17 06:00 Ur Specific [place] 1.025 (1.005-1.030) 02/02/17 06:00 Urine Protein >300 mg/dL (NEGATIVE) H 02/02/17 06:00 Urine Glucose (UA) NEGATIVE mg/dL (NEGATIVE) 02/02/17 06:00 Urine Ketones NEGATIVE mg/dL (NEGATIVE) 02/02/17 06:00 Urine Blood LARGE (NEGATIVE) H 02/02/17 06:00 Urine Nitrate NEGATIVE (NEGATIVE) 02/02/17 06:00 Urine Bilirubin SMALL (NEGATIVE) H 02/02/17 06:00 Urine Urobilinogen 0.2 E.U./dL (0.2 - 1.0) 02/02/17 06:00 Ur Leukocyte Esterase NEGATIVE (NEGATIVE) 02/02/17 06:00 Urine RBC 50-100 /hpf (0-5) H 02/02/17 06:00 Urine WBC 6-10 /hpf (0-5) H 02/02/17 06:00 Ur Epithelial Cells MODERATE /lpf (FEW) 02/02/17 06:00 Amorphous Sediment MANY URATES (NONE SEEN) 02/02/17 06:00 Urine Bacteria MODERATE /hpf (NONE SEEN) 02/02/17 06:00 Ur Random Sodium 59 mmol/L 02/02/17 06:00 Urine Creatinine 129.0 mg/dl (28.0-217.0) 02/02/17 06:00 Vancomycin Trough 6.1 ug/mL (10-20) L 01/29/17 23:03 Random Vancomycin 19.0 ug/mL (5.0-40.0) 02/04/17 04:39 Salicylates < 25.0 mg/L (30.0-100.0) L 01/25/17 01:48 Urine Opiates Screen POSITIVE (NEGATIVE) H 01/25/17 03:00 Acetaminophen < 10.0 ug/mL (10.0-30.0) L 01/25/17 01:48 Ur Barbiturates Screen NEGATIVE (NEGATIVE) 01/25/17 03:00 Ur Phencyclidine Scrn NEGATIVE (NEGATIVE) 01/25/17 03:00 Amphetamines Screen POSITIVE (NEGATIVE) H 01/25/17 03:00 U Methamphetamines Scrn POSITIVE (NEGATIVE) H 01/25/17 03:00 U Benzodiazepines Scrn NEGATIVE (NEGATIVE) 01/25/17 03:00 U Cocaine Metab Screen NEGATIVE (NEGATIVE) 01/25/17 03:00 U Cannabinoids Screen NEGATIVE (NEGATIVE) 01/25/17 03:00 Ethyl Alcohol < 10 mg/dL (0-10) 01/25/17 01:48 RPR NONREACTIVE (NONREACTIVE) 01/25/17 01:48 HIV 1&2 Antibody Screen NEGATIVE (NEG) 01/26/17 05:02 - Physical Exam Vitals and I&O: Vital Signs Temp 97.1 F 02/04/17 07:00 Pulse 122 02/04/17 07:00 Resp 22 02/04/17 07:00 BP 131/59 02/04/17 07:00 Pulse Ox 98 02/04/17 07:00 Intake & Output 02/03/17 02/04/17 02/04/17 18:59 06:59 18:59 Intake Total 1400 100 Output Total 255 585 Balance 1145 -485 Intake: Intake, IV Amount 1400 100 Fluconazole 400mg/200mL 200 400 mg In 200 ml @ 100 mls/hr IV Q24HR [facility] Rx#: [id number] Meropenem 500 mg In 200 100 Sodium Chloride 0.9% 100 ml @ 100 mls/hr IV Q8H [facility] Rx#:[id number] Sodium Chloride 0.9% 1, 1000 000 ml @ 100 mls/hr IV . Q10H [facility] Rx#:[id number] Oral 0 Output: Drainage 45 85 Left Lower Abdomen 30 30 Right Lower Abdomen 15 55 Urine 210 500 Other: # Bowel Movements 0 0 Stool Characteristics Formed Foamy Active Medications: Current Medications Clonidine HCl (Catapres) 0.1 mg PO Q4H PRN PRN Reason: sbp >160 and diastolic >100 Stop: 03/31/17 16:11 Last Admin: 01/31/17 17:06 Dose: 0.1 mg Diltiazem HCl (Cardizem) 20 mg IVP Q4HR PRN PRN Reason: HR>120 Stop: 04/02/17 08:57 Last Admin: 02/03/17 21:57 Dose: 20 mg Enalaprilat (Vasotec) 2.5 mg IVP Q4HR PRN PRN Reason: systolic BP >160 Stop: 04/02/17 11:33 Hydromorphone HCl (Dilaudid) 1 mg IVP Q3H PRN PRN Reason: MODERATE PAIN Stop: 03/26/17 17:55 Last Admin: 02/03/17 16:10 Dose: 1 mg Hydromorphone HCl (Dilaudid) 2 mg IVP Q3H PRN PRN Reason: SEVERE PAIN Stop: 03/26/17 17:56 Last Admin: 02/04/17 08:05 Dose: 2 mg Fluconazole 400mg/200mL (Diflucan) 400 mg in 200 mls @ 100 mls/hr IV Q24HR [facility] Stop: 04/02/17 16:44 Last Infusion: 02/03/17 17:50 Dose: Infused Sodium Chloride (Nacl 0.9%) 1,000 mls @ 100 mls/hr IV .Q10H [facility] Stop: 04/02/17 17:44 Last Admin: 02/03/17 23:45 Dose: 100 mls/hr Meropenem 500 mg/ Sodium (Chloride) 100 mls @ 100 mls/hr IV Q8H [facility] Stop: 04/04/17 07:44 Last Admin: 02/04/17 07:45 Dose: 100 mls/hr Insulin Aspart (Novolog) 0 units SUBQ Q6HR [facility] PRN Reason: Protocol Stop: 03/28/17 08:59 Last Admin: 02/04/17 06:00 Dose: Not Given Lactobacillus Rhamnosus (Culturelle) 1 each PO DAILY [facility] Stop: 03/29/17 08:59 Last Admin: 02/04/17 08:29 Dose: Not Given Miscellaneous (Probiotic Screen) 1 ea MC PRN PRN PRN Reason: PROTOCOL Stop: 03/28/17 13:21 Miscellaneous (Vancomycin Iv Per Pharmacy) 1 ea MC PRN [facility] Stop: 04/04/17 05:14 Ondansetron HCl (Zofran) 4 mg IV UD PRN PRN Reason: Nausea / Vomiting Stop: 04/03/17 18:25 Pantoprazole Sodium (Protonix) 40 mg IVP BID [facility] Stop: 04/01/17 16:59 Last Admin: 02/04/17 08:27 Dose: 40 mg General: weak, alert HEENT: NC/AT, PERRLA Neck: Supple Lungs: CTAB Cardiovascular: RRR, Normal S1, Normal S2 Abdomen: distended, other (tender) Extremities: clear (no edema, ) - Procedures Procedures: Procedures Procedure Code Date BYPASS STOMACH TO JEJUNUM, OPEN APPROACH [id number] 01/25/17 FUSION OF STOMACH AND BOWEL 80991 01/25/17 INSPECTION OF GASTROINTESTINAL TRACT, OPEN APPROACH [id number] 01/25/17 REMOVAL OF GALLBLADDER 62030 01/25/17 REOPENING OF ABDOMEN 25640 01/25/17 REPAIR STOMACH, OPEN APPROACH [id number] 01/25/17 RESECTION OF GALLBLADDER, OPEN APPROACH [id number] 01/25/17 RESPIRATORY VENTILATION, LESS THAN 24 CONSECUTIVE HOURS [id number] 01/25/17 STOMACH SURGERY PROCEDURE 56929 01/25/17 VENT MGMT INPAT INIT DAY 77004 01/25/17 Internal Medicine Assmt/Plan - Assessment Assessment: ABDOMINAL ABCESS S/P SECOND SURGERY RENAL FAILURE HTN HX GASTRIC BYPASS - Plan Plan: CPM DONOT DISCHARGE WITHOPUT MY CONSENT NO TRANSFER TO LTAC Nutritional Asmnt/Malnutr-PDOC - Dietary Evaluation Malnutrition Findings (Please click <Entered> for more info): Nutritional Asmnt/Malnutrition Start: 01/26/17 14: 32 Text: Status: Complete Freq: Document 01/26/17 14:32 GSUN (Rec: 01/26/17 14:51 GSUN [email or web address]) Nutritional Asmnt/Malnutrition Patient General Information Nutritional Screening Consult Diagnosis UTI, leukocytosis maybe reactive versus sepsis Pertinent Medical Hx/Surgical Hx HTN, DM, drug abuse, dementia Subjective Information 71 year old female, homeless. RD consult for BG >180. Pt was NPO at time of visit for CT abdomen/pelvis scan. Pt was agitated and in pain during visit. Pt refused to answer RD questions, repeatedly asked about bowel prep processes, then yelled at RD to leave. Pertinent Medications Val Santos Pertinent Labs 01/25: A1c 6, glucose 319H Nutritional Hx/Data Height 1.73 m Height (Calculated Centimeters) 172.7 Current Weight (lbs) 69.899 kg Weight (Calculated Kilograms) 69.9 Weight (Calculated Grams) 23121.6 [place] Body Weight 140lb Weight Status Approriate GI Symptoms Cultural/Ethnic/Christianity Belief Unknown. Usual diet at home Unknown. Estimated Nutritional Goals BEE in Kcals: Using Current wt Calories/Kcals/Kg CBW 70kg Kcals Calculated 1750-2100kcal (25-30kcal/kg, ? possible sepsis) Protein: Using Current wt Protein Calculated 70g (1g/kg) Fluid: ml 1750-2100ml (1ml/kcal) Nutritional Problem 1. Problem Problem Altered nutrition related laboratory values related to Etiology DM aeb Signs/Symptoms: H&P, glucose 319H on adm Intervention/Recommendation Comments 1. NPO at time of visit. Diet advancement per MD, recommend [id number] to promtoe glycemic control. 2. Provide edu on DM as needed . Expected Outcomes/Goals Expected Outcomes/Goals 1. [place] to meet 100% of estimated nutritional needs.
--- NOTE | 2017-02-04 13:57 | Pathology Report ---
[id number] Collection Date: 02/02/2017 Surgeon: Dr. Iqra Coyne Specimen Description: Intra-abdominal tissue Gross Description: Received in formalin are multiple irregular fragments of الع[place]-sawyer membranous soft tissue ranging from 2.0 to 5.5 cm in greatest dimension. This membranous tissue measures 0.1 to 0.2 cm in thickness and has the appearance of fibrous adhesions that are semi-transparent with a smooth glistening surface. Sectioning shows no focal lesions. [facility] sections are submitted in two cassettes labeled A1 and A2. Microscopic Description: The histologic sections show fibromembranous connective tissue with extensive acute inflammation present consisting of large collections of neutrophils. Diagnosis: Fibromembranous connective tissue with extensive acute inflammation, consistent with inflammatory adhesions or abscess wall. [facility]# [id number]
--- NOTE | 2017-02-04 14:12 | General Progress Note ---
Subjective - Review of Systems Service Date: 02/04/17 Subjective: sleeping, arousable, still w/ abd. pain Objective - Results Result Diagrams: 02/04/17 04:39 02/04/17 04:39 Recent Labs: Laboratory Last Values WBC 43.4 Th/cmm (4.8-10.8) H* D 02/04/17 04:39 RBC 2.95 Mil/cmm (3.80-5.20) L 02/04/17 04:39 Hgb 10.2 gm/dL (11.7-16.1) L 02/04/17 04:39 Hct 29.0 % (35.0-45.0) L D 02/04/17 04:39 MCV 98.3 fl (81-100) 02/04/17 04:39 MCH 34.7 pg (27.0-31.0) H 02/04/17 04:39 MCHC Differential 35.3 pg (28.0-36.0) 02/04/17 04:39 RDW 13.3 % (11.5-20.0) 02/04/17 04:39 Plt Count 327 Th/cmm (150-400) 02/04/17 04:39 MPV 7.9 fl 02/04/17 04:39 Neutrophils % [employer]IST 02/04/17 04:39 Band Neutrophils % 7 % (0-10) 02/04/17 04:39 Lymphocytes % [employer] FI[employer] SPECIALIST 02/04/17 04:39 Monocytes % [employer] FIELD SPECIALIST 02/01/17 15:55 Eosinophils % [employer] FI[employer] SPECIALIST 02/04/17 04:39 Basophils % [employer] FI[employer] SPECIALIST 02/01/17 15:55 Neutrophils (Manual) 89 % (40-80) H 02/04/17 04:39 Lymphocytes 2 % (20-50) L 02/04/17 04:39 Monocytes 2 % (2-10) 02/04/17 04:39 Eosinophils 0 % (0-5) 02/01/17 15:55 Basophils 1 % (0-3) 02/02/17 04:19 Metamyelocytes 2 % (0-0) H 02/02/17 04:19 Myelocytes 2 % 01/31/17 05:40 Platelet Estimate ADEQUATE (NORMAL) 02/04/17 04:39 Platelet Morphology NORMAL (NORMAL) 02/04/17 04:39 Anisocytosis 1+ 02/03/17 04:53 RBC Morph Micro Appear NORMAL (NORMAL) 02/04/17 04:39 Smear Path Review SEE BELOW 02/03/17 04:53 Eos Smear Source URINE 02/02/17 06:00 Eos Smear Total Cells NONE SEEN (NONE SEEN) 02/02/17 06:00 PT 9.9 SECONDS (9.5-11.5) 01/25/17 01:48 INR 0.95 (0.5-1.4) 01/25/17 01:48 Specimen Source Arterial 01/27/17 09:13 Sample Site Right Radial 01/27/17 09:13 pH 7.36 (7.35-7.45) 01/27/17 09:13 pCO2 41.0 mmHg (35.0-45.0) 01/27/17 09:13 pO2 100.0 mmHg (80.0-100.0) 01/27/17 09:13 HCO3 23.2 mEq/L (20.0-26.0) 01/27/17 09:13 Base Excess -2.2 mEq/L (-3.0-3.0) 01/27/17 09:13 O2 Saturation 97.0 % (92.0-100.0) 01/27/17 09:13 Luther Test PASS 01/27/17 09:13 Vent Rate 13 01/27/17 09:13 Inspired O2 30 01/27/17 09:13 Tidal Volume 500 01/27/17 09:13 PEEP 5 01/27/17 09:13 Pressure (ins/psv/peep) N/A 01/26/17 21:00 Critical Value PW 01/27/17 09:13 Sodium 146 mEq/L (136-145) H 02/04/17 04:39 Potassium 3.7 mEq/L (3.5-5.1) 02/04/17 04:39 Chloride 118 mEq/L (98-107) H 02/04/17 04:39 Carbon Dioxide 21.6 mEq/L (21.0-31.0) 02/04/17 04:39 Anion Gap 10.1 (7.0-16.0) 02/04/17 04:39 BUN 59 mg/dL (7-25) H 02/04/17 04:39 Creatinine 3.1 mg/dL (0.6-1.2) H 02/04/17 04:39 Est GFR ( Amer) 19.2 ml/min (>90) 02/04/17 04:39 Est GFR (Non-Af Amer) 15.8 ml/min 02/04/17 04:39 BUN/Creatinine Ratio 19.0 02/04/17 04:39 Glucose 135 mg/dL (70-105) H 02/04/17 04:39 POC Glucose 127 MG/DL (70 - 105) H 02/04/17 11:55 Hemoglobin A1c % 6.0 % (4.0-6.0) 01/25/17 01:48 Whole Bld Lactic Acid 1.68 mmol/L (0.60-1.99) 02/03/17 04:53 Uric Acid 4.4 mg/dL (2.3-6.6) 02/02/17 04:19 Calcium 7.6 mg/dL (8.6-10.3) L 02/04/17 04:39 Phosphorus 5.8 mg/dL (2.5-5.0) H 02/04/17 04:39 Magnesium 1.9 mg/dL (1.9-2.7) 02/04/17 04:39 Total Bilirubin 0.3 mg/dL (0.3-1.0) 02/04/17 04:39 AST 17 U/L (13-39) 02/04/17 04:39 ALT 9 U/L (7-52) 02/04/17 04:39 Alkaline Phosphatase 65 U/L (34-104) 02/04/17 04:39 Troponin I < 0.01 ng/mL (0.01-0.05) L 01/25/17 01:48 Total Protein 4.2 gm/dL (6.0-8.3) L 02/04/17 04:39 Albumin 1.9 gm/dL (3.7-5.3) L 02/04/17 04:39 Globulin 2.3 gm/dL 02/04/17 04:39 Albumin/Globulin Ratio 0.8 (1.0-1.8) L 02/04/17 04:39 Triglycerides 98 mg/dL (<150) 01/25/17 01:48 Cholesterol 146 mg/dL (<200) 01/25/17 01:48 LDL Cholesterol Direct 37 mg/dL (75-193) L 01/25/17 01:48 HDL Cholesterol 83 mg/dL (23-92) 01/25/17 01:48 TSH 1.45 uIU/ml (0.34-5.60) 01/25/17 01:48 Urine Source RANDOM 02/02/17 06:00 Urine Color BROWN 02/02/17 06:00 Urine Clarity SL. CLOUDY (CLEAR) 02/02/17 06:00 Urine pH 6.0 02/02/17 06:00 Ur Specific [place] 1.025 (1.005-1.030) 02/02/17 06:00 Urine Protein >300 mg/dL (NEGATIVE) H 02/02/17 06:00 Urine Glucose (UA) NEGATIVE mg/dL (NEGATIVE) 02/02/17 06:00 Urine Ketones NEGATIVE mg/dL (NEGATIVE) 02/02/17 06:00 Urine Blood LARGE (NEGATIVE) H 02/02/17 06:00 Urine Nitrate NEGATIVE (NEGATIVE) 02/02/17 06:00 Urine Bilirubin SMALL (NEGATIVE) H 02/02/17 06:00 Urine Urobilinogen 0.2 E.U./dL (0.2 - 1.0) 02/02/17 06:00 Ur Leukocyte Esterase NEGATIVE (NEGATIVE) 02/02/17 06:00 Urine RBC 50-100 /hpf (0-5) H 02/02/17 06:00 Urine WBC 6-10 /hpf (0-5) H 02/02/17 06:00 Ur Epithelial Cells MODERATE /lpf (FEW) 02/02/17 06:00 Amorphous Sediment MANY URATES (NONE SEEN) 02/02/17 06:00 Urine Bacteria MODERATE /hpf (NONE SEEN) 02/02/17 06:00 Ur Random Sodium 59 mmol/L 02/02/17 06:00 Urine Creatinine 129.0 mg/dl (28.0-217.0) 02/02/17 06:00 Vancomycin Trough 6.1 ug/mL (10-20) L 01/29/17 23:03 Random Vancomycin 19.0 ug/mL (5.0-40.0) 02/04/17 04:39 Salicylates < 25.0 mg/L (30.0-100.0) L 01/25/17 01:48 Urine Opiates Screen POSITIVE (NEGATIVE) H 01/25/17 03:00 Acetaminophen < 10.0 ug/mL (10.0-30.0) L 01/25/17 01:48 Ur Barbiturates Screen NEGATIVE (NEGATIVE) 01/25/17 03:00 Ur Phencyclidine Scrn NEGATIVE (NEGATIVE) 01/25/17 03:00 Amphetamines Screen POSITIVE (NEGATIVE) H 01/25/17 03:00 U Methamphetamines Scrn POSITIVE (NEGATIVE) H 01/25/17 03:00 U Benzodiazepines Scrn NEGATIVE (NEGATIVE) 01/25/17 03:00 U Cocaine Metab Screen NEGATIVE (NEGATIVE) 01/25/17 03:00 U Cannabinoids Screen NEGATIVE (NEGATIVE) 01/25/17 03:00 Ethyl Alcohol < 10 mg/dL (0-10) 01/25/17 01:48 RPR NONREACTIVE (NONREACTIVE) 01/25/17 01:48 HIV 1&2 Antibody Screen NEGATIVE (NEG) 01/26/17 05:02 - Physical Exam Vitals and I&O: Vital Signs Temp 98.7 F 02/04/17 12:00 Pulse 118 02/04/17 12:00 Resp 18 02/04/17 12:00 BP 120/63 02/04/17 12:00 Pulse Ox 96 02/04/17 12:33 Intake & Output 02/03/17 02/04/17 02/04/17 18:59 06:59 18:59 Intake Total 1400 100 100 Output Total 255 585 Balance 1145 -485 100 Intake: Intake, IV Amount 1400 100 100 Fluconazole 400mg/200mL 200 400 mg In 200 ml @ 100 mls/hr IV Q24HR [facility] Rx#: [id number] Meropenem 500 mg In 200 100 100 Sodium Chloride 0.9% 100 ml @ 100 mls/hr IV Q8H [facility] Rx#:[id number] Sodium Chloride 0.9% 1, 1000 000 ml @ 100 mls/hr IV . Q10H [facility] Rx#:[id number] Oral 0 Output: Drainage 45 85 Left Lower Abdomen 30 30 Right Lower Abdomen 15 55 Urine 210 500 Other: # Bowel Movements 0 0 Stool Characteristics Formed Foamy Active Medications: Current Medications Clonidine HCl (Catapres) 0.1 mg PO Q4H PRN PRN Reason: sbp >160 and diastolic >100 Stop: 03/31/17 16:11 Last Admin: 01/31/17 17:06 Dose: 0.1 mg Diltiazem HCl (Cardizem) 20 mg IVP Q4HR PRN PRN Reason: HR>120 Stop: 04/02/17 08:57 Last Admin: 02/03/17 21:57 Dose: 20 mg Enalaprilat (Vasotec) 2.5 mg IVP Q4HR PRN PRN Reason: systolic BP >160 Stop: 04/02/17 11:33 Hydromorphone HCl (Dilaudid) 1 mg IVP Q3H PRN PRN Reason: MODERATE PAIN Stop: 03/26/17 17:55 Last Admin: 02/03/17 16:10 Dose: 1 mg Hydromorphone HCl (Dilaudid) 2 mg IVP Q3H PRN PRN Reason: SEVERE PAIN Stop: 03/26/17 17:56 Last Admin: 02/04/17 08:05 Dose: 2 mg Fluconazole 400mg/200mL (Diflucan) 400 mg in 200 mls @ 100 mls/hr IV Q24HR [facility] Stop: 04/02/17 16:44 Last Infusion: 02/03/17 17:50 Dose: Infused Sodium Chloride (Nacl 0.9%) 1,000 mls @ 100 mls/hr IV .Q10H [facility] Stop: 04/02/17 17:44 Last Admin: 02/03/17 23:45 Dose: 100 mls/hr Meropenem 500 mg/ Sodium (Chloride) 100 mls @ 100 mls/hr IV Q8H [facility] Stop: 04/04/17 07:44 Last Infusion: 02/04/17 08:45 Dose: Infused Vancomycin HCl 0.75 gm/ Sodium (Chloride) 250 mls @ 165 mls/hr IV ONCE ONE Stop: 02/05/17 10:30 Insulin Aspart (Novolog) 0 units SUBQ Q6HR [facility] PRN Reason: Protocol Stop: 03/28/17 08:59 Last Admin: 02/04/17 11:59 Dose: Not Given Lactobacillus Rhamnosus (Culturelle) 1 each PO DAILY [facility] Stop: 03/29/17 08:59 Last Admin: 02/04/17 08:29 Dose: Not Given Lorazepam (Ativan) 1 mg IVP Q4HR PRN; Protocol PRN Reason: Anxiety Stop: 04/05/17 09:56 Last Admin: 02/04/17 10:30 Dose: 1 mg Miscellaneous (Probiotic Screen) 1 ea PRN PRN PRN Reason: PROTOCOL Stop: 03/28/17 13:21 Miscellaneous (Vancomycin Iv Per Pharmacy) 1 ea PRN [facility] Stop: 04/04/17 05:14 Ondansetron HCl (Zofran) 4 mg IV UD PRN PRN Reason: Nausea / Vomiting Stop: 04/03/17 18:25 Pantoprazole Sodium (Protonix) 40 mg IVP BID [facility] Stop: 04/01/17 16:59 Last Admin: 02/04/17 08:27 Dose: 40 mg General: Other (still w/ abd pain) HEENT: Atraumatic, Mucous membr. moist/pink Neck: Supple, +2 carotid pulse wo bruit Cardiovascular: Regular rate, Normal S1, Normal S2 Lungs: Other (scattered rhonchi) Abdomen: Bowel sounds, Soft Extremities: no Edema Neurological: Sensation intact Skin: no Rash - Procedures Procedures: Procedures Procedure Code Date BYPASS STOMACH TO JEJUNUM, OPEN APPROACH [id number] 01/25/17 FUSION OF STOMACH AND BOWEL 50725 01/25/17 INSPECTION OF GASTROINTESTINAL TRACT, OPEN APPROACH [id number] 01/25/17 REMOVAL OF GALLBLADDER 99859 01/25/17 REOPENING OF ABDOMEN 66533 01/25/17 REPAIR STOMACH, OPEN APPROACH [id number] 01/25/17 RESECTION OF GALLBLADDER, OPEN APPROACH [id number] 01/25/17 RESPIRATORY VENTILATION, LESS THAN 24 CONSECUTIVE HOURS [id number] 01/25/17 STOMACH SURGERY PROCEDURE 86852 01/25/17 VENT MGMT INPAT INIT DAY 42762 01/25/17 Assessment/Plan - Problem List Patient Problems: All Active Problems H/O diabetes mellitus (Acute) Z86.39 H/O drug abuse (Acute) Z87.898 H/O: HTN (hypertension) (Acute) Z86.79 POSTCHOLECYSTECTOMY (Acute) UTI (urinary tract infection) (Acute) closeure og gastric perf (Acute) cplacement of new gj (Acute) h/o dementia (Acute) lysisi of adhesions (Acute) r/o sepsis (Acute) s/p surgery (Acute) septic shock (Acute) tachycardia (Acute) - Assessment Assessment: MELECIO Septic shock 2nd to acute peritonitis w/ large abcess ruptured viscus S/P exp. lap ALOC 2nd to Met Enceph type 2 DM Alzh Dementia Sinus tach Severe Malnutrition - Plan Plan: Lab - Result Diagrams 02/02/17 04:19 02/02/17 04:19 Current Medications Clonidine HCl (Catapres) 0.1 mg PO Q4H PRN PRN Reason: sbp >160 and diastolic >100 Stop: 03/31/17 16:11 Last Admin: 01/31/17 17:06 Dose: 0.1 mg Diltiazem HCl (Cardizem) 20 mg IVP Q4HR PRN PRN Reason: HR>120 Stop: 04/02/17 08:57 Last Admin: 02/01/17 09:20 Dose: 20 mg Enalaprilat (Vasotec) 2.5 mg IVP Q4HR PRN PRN Reason: systolic BP >160 Stop: 04/02/17 11:33 Hydromorphone HCl (Dilaudid) 1 mg IVP Q3H PRN PRN Reason: MODERATE PAIN Stop: 03/26/17 17:55 Last Admin: 02/02/17 09:14 Dose: 1 mg Hydromorphone HCl (Dilaudid) 2 mg IVP Q3H PRN PRN Reason: SEVERE PAIN Stop: 03/26/17 17:56 Last Admin: 02/02/17 03:40 Dose: 2 mg Metronidazole (Flagyl) 500 mg in 100 mls @ 100 mls/hr IV Q8HR [facility] Stop: 03/28/17 04:59 Last Admin: 02/02/17 13:39 Dose: 100 mls/hr Fluconazole 400mg/200mL (Diflucan) 400 mg in 200 mls @ 100 mls/hr IV Q24HR [facility] Stop: 04/02/17 16:44 Last Infusion: 02/01/17 19:20 Dose: Infused Piperacillin Sod/Tazobactam (Sod 4.5 gm/ Sodium Chloride) 100 mls @ 100 mls/hr IV Q8HR [facility] Stop: 04/02/17 18:29 Last Admin: 02/02/17 12:45 Dose: 100 mls/hr Sodium Chloride (Nacl 0.9%) 1,000 mls @ 100 mls/hr IV .Q10H [facility] Stop: 04/02/17 17:44 Last Admin: 02/02/17 05:55 Dose: 100 mls/hr Insulin Aspart (Novolog) 0 units SUBQ Q6HR [facility] PRN Reason: Protocol Stop: 03/28/17 08:59 Last Admin: 02/02/17 13:40 Dose: 4 units Lactobacillus Rhamnosus (Culturelle) 1 each PO DAILY [facility] Stop: 03/29/17 08:59 Last Admin: 02/02/17 08:56 Dose: Not Given Meperidine HCl (Demerol) 12.5 mg IVP Q2M PRN PRN Reason: POST-OP PAIN Stop: 03/27/17 19:19 Miscellaneous (Vancomycin Iv Per Pharmacy) 1 ea MC PRN [facility] Stop: 03/28/17 02:29 Miscellaneous (Probiotic Screen) 1 ea PRN PRN PRN Reason: PROTOCOL Stop: 03/28/17 13:21 Ondansetron HCl (Zofran) 4 mg IV Q6H PRN PRN Reason: Nausea / Vomiting Stop: 03/26/17 16:27 Last Admin: 01/31/17 17:13 Dose: 4 mg Pantoprazole Sodium (Protonix) 40 mg IVP BID [facility] Stop: 04/01/17 16:59 Last Admin: 02/02/17 08:56 Dose: Not Given WBC down to 43.4 Kidney fnc worse, BUN/CR 59/ 3.1 still oliguric, if no improvement consider dialysis continue IVF f/u panculture continue Flagyl, Fluconazole, Zosyn f/u electrolytes, cbc Nutritional Asmnt/Malnutr-PDOC - Dietary Evaluation Malnutrition Findings (Please click <Entered> for more info): Nutritional Asmnt/Malnutrition Start: 01/26/17 14: 32 Text: Status: Complete Freq: Document 01/26/17 14:32 GSUN (Rec: 01/26/17 14:51 GSUN [id number]) Nutritional Asmnt/Malnutrition Patient General Information Nutritional Screening Consult Diagnosis UTI, leukocytosis maybe reactive versus sepsis Pertinent Medical Hx/Surgical Hx HTN, DM, drug abuse, dementia Subjective Information 71 year old female, homeless. RD consult for BG >180. Pt was NPO at time of visit for CT abdomen/pelvis scan. Pt was agitated and in pain during visit. Pt refused to answer RD questions, repeatedly asked about bowel prep processes, then yelled at RD to leave. Pertinent Medications Val Santos Pertinent Labs 01/25: A1c 6, glucose 319H Nutritional Hx/Data Height 1.73 m Height (Calculated Centimeters) 172.7 Current Weight (lbs) 69.899 kg Weight (Calculated Kilograms) 69.9 Weight (Calculated Grams) 42034.6 Reva Body Weight 140lb Weight Status Approriate GI Symptoms Cultural/Ethnic/Spiritism Belief Unknown. Usual diet at home Unknown. Estimated Nutritional Goals BEE in Kcals: Using Current wt Calories/Kcals/Kg CBW 70kg Kcals Calculated 1750-2100kcal (25-30kcal/kg, ? possible sepsis) Protein: Using Current wt Protein Calculated 70g (1g/kg) Fluid: ml 1750-2100ml (1ml/kcal) Nutritional Problem 1. Problem Problem Altered nutrition related laboratory values related to Etiology DM aeb Signs/Symptoms: H&P, glucose 319H on adm Intervention/Recommendation Comments 1. NPO at time of visit. Diet advancement per MD, recommend [id number] to promtoe glycemic control. 2. Provide edu on DM as needed . Expected Outcomes/Goals Expected Outcomes/Goals 1. Po [place] to meet 100% of estimated nutritional needs.
[2017-02-04] MEDS ORDERED: Metoclopramide 5 mg/mL 2mL Vial IVP PRN (15:02)
--- NOTE | 2017-02-04 15:07 | General Progress Note ---
Subjective - Review of Systems Service Date: 02/04/17 Events since last encounter: still no flatus - start Reglan PT - mobilize leukocytosis trending down Objective - Results Result Diagrams: 02/04/17 04:39 02/04/17 04:39 Recent Labs: Laboratory Last Values WBC 43.4 Th/cmm (4.8-10.8) H* D 02/04/17 04:39 RBC 2.95 Mil/cmm (3.80-5.20) L 02/04/17 04:39 Hgb 10.2 gm/dL (11.7-16.1) L 02/04/17 04:39 Hct 29.0 % (35.0-45.0) L D 02/04/17 04:39 MCV 98.3 fl (81-100) 02/04/17 04:39 MCH 34.7 pg (27.0-31.0) H 02/04/17 04:39 MCHC Differential 35.3 pg (28.0-36.0) 02/04/17 04:39 RDW 13.3 % (11.5-20.0) 02/04/17 04:39 Plt Count 327 Th/cmm (150-400) 02/04/17 04:39 MPV 7.9 fl 02/04/17 04:39 Neutrophils % COOK ENCHILADA 02/04/17 04:39 Band Neutrophils % 7 % (0-10) 02/04/17 04:39 Lymphocytes % COOK ENCHILADA 02/04/17 04:39 Monocytes % COOK ENCHILADA 02/01/17 15:55 Eosinophils % COOK ENCHILADA 02/04/17 04:39 Basophils % COOK ENCHILADA 02/01/17 15:55 Neutrophils (Manual) 89 % (40-80) H 02/04/17 04:39 Lymphocytes 2 % (20-50) L 02/04/17 04:39 Monocytes 2 % (2-10) 02/04/17 04:39 Eosinophils 0 % (0-5) 02/01/17 15:55 Basophils 1 % (0-3) 02/02/17 04:19 Metamyelocytes 2 % (0-0) H 02/02/17 04:19 Myelocytes 2 % 01/31/17 05:40 Platelet Estimate ADEQUATE (NORMAL) 02/04/17 04:39 Platelet Morphology NORMAL (NORMAL) 02/04/17 04:39 Anisocytosis 1+ 02/03/17 04:53 RBC Morph Micro Appear NORMAL (NORMAL) 02/04/17 04:39 Smear Path Review SEE BELOW 02/03/17 04:53 Eos Smear Source URINE 02/02/17 06:00 Eos Smear Total Cells NONE SEEN (NONE SEEN) 02/02/17 06:00 PT 9.9 SECONDS (9.5-11.5) 01/25/17 01:48 INR 0.95 (0.5-1.4) 01/25/17 01:48 Specimen Source Arterial 01/27/17 09:13 Sample Site Right Radial 01/27/17 09:13 pH 7.36 (7.35-7.45) 01/27/17 09:13 pCO2 41.0 mmHg (35.0-45.0) 01/27/17 09:13 pO2 100.0 mmHg (80.0-100.0) 01/27/17 09:13 HCO3 23.2 mEq/L (20.0-26.0) 01/27/17 09:13 Base Excess -2.2 mEq/L (-3.0-3.0) 01/27/17 09:13 O2 Saturation 97.0 % (92.0-100.0) 01/27/17 09:13 Lutehr Test PASS 01/27/17 09:13 Vent Rate 13 01/27/17 09:13 Inspired O2 30 01/27/17 09:13 Tidal Volume 500 01/27/17 09:13 PEEP 5 01/27/17 09:13 Pressure (ins/psv/peep) N/A 01/26/17 21:00 Critical Value PW 01/27/17 09:13 Sodium 146 mEq/L (136-145) H 02/04/17 04:39 Potassium 3.7 mEq/L (3.5-5.1) 02/04/17 04:39 Chloride 118 mEq/L (98-107) H 02/04/17 04:39 Carbon Dioxide 21.6 mEq/L (21.0-31.0) 02/04/17 04:39 Anion Gap 10.1 (7.0-16.0) 02/04/17 04:39 BUN 59 mg/dL (7-25) H 02/04/17 04:39 Creatinine 3.1 mg/dL (0.6-1.2) H 02/04/17 04:39 Est GFR ( Amer) 19.2 ml/min (>90) 02/04/17 04:39 Est GFR (Non-Af Amer) 15.8 ml/min 02/04/17 04:39 BUN/Creatinine Ratio 19.0 02/04/17 04:39 Glucose 135 mg/dL (70-105) H 02/04/17 04:39 POC Glucose 127 MG/DL (70 - 105) H 02/04/17 11:55 Hemoglobin A1c % 6.0 % (4.0-6.0) 01/25/17 01:48 Whole Bld Lactic Acid 1.68 mmol/L (0.60-1.99) 02/03/17 04:53 Uric Acid 4.4 mg/dL (2.3-6.6) 02/02/17 04:19 Calcium 7.6 mg/dL (8.6-10.3) L 02/04/17 04:39 Phosphorus 5.8 mg/dL (2.5-5.0) H 02/04/17 04:39 Magnesium 1.9 mg/dL (1.9-2.7) 02/04/17 04:39 Total Bilirubin 0.3 mg/dL (0.3-1.0) 02/04/17 04:39 AST 17 U/L (13-39) 02/04/17 04:39 ALT 9 U/L (7-52) 02/04/17 04:39 Alkaline Phosphatase 65 U/L (34-104) 02/04/17 04:39 Troponin I < 0.01 ng/mL (0.01-0.05) L 01/25/17 01:48 Total Protein 4.2 gm/dL (6.0-8.3) L 02/04/17 04:39 Albumin 1.9 gm/dL (3.7-5.3) L 02/04/17 04:39 Globulin 2.3 gm/dL 02/04/17 04:39 Albumin/Globulin Ratio 0.8 (1.0-1.8) L 02/04/17 04:39 Triglycerides 98 mg/dL (<150) 01/25/17 01:48 Cholesterol 146 mg/dL (<200) 01/25/17 01:48 LDL Cholesterol Direct 37 mg/dL (75-193) L 01/25/17 01:48 HDL Cholesterol 83 mg/dL (23-92) 01/25/17 01:48 TSH 1.45 uIU/ml (0.34-5.60) 03 01:48 Urine Source RANDOM 02/02/17 06:00 Urine Color BROWN 02/02/17 06:00 Urine Clarity SL. CLOUDY (CLEAR) 02/02/17 06:00 Urine pH 6.0 02/02/17 06:00 Ur Specific [place] 1.025 (1.005-1.030) 02/02/17 06:00 Urine Protein >300 mg/dL (NEGATIVE) H 02/02/17 06:00 Urine Glucose (UA) NEGATIVE mg/dL (NEGATIVE) 02/02/17 06:00 Urine Ketones NEGATIVE mg/dL (NEGATIVE) 02/02/17 06:00 Urine Blood LARGE (NEGATIVE) H 02/02/17 06:00 Urine Nitrate NEGATIVE (NEGATIVE) 02/02/17 06:00 Urine Bilirubin SMALL (NEGATIVE) H 02/02/17 06:00 Urine Urobilinogen 0.2 E.U./dL (0.2 - 1.0) 02/02/17 06:00 Ur Leukocyte Esterase NEGATIVE (NEGATIVE) 02/02/17 06:00 Urine RBC 50-100 /hpf (0-5) H 02/02/17 06:00 Urine WBC 6-10 /hpf (0-5) H 02/02/17 06:00 Ur Epithelial Cells MODERATE /lpf (FEW) 02/02/17 06:00 Amorphous Sediment MANY URATES (NONE SEEN) 02/02/17 06:00 Urine Bacteria MODERATE /hpf (NONE SEEN) 02/02/17 06:00 Ur Random Sodium 59 mmol/L 02/02/17 06:00 Urine Creatinine 129.0 mg/dl (28.0-217.0) 02/02/17 06:00 Vancomycin Trough 6.1 ug/mL (10-20) L 01/29/17 23:03 Random Vancomycin 19.0 ug/mL (5.0-40.0) 02/04/17 04:39 Salicylates < 25.0 mg/L (30.0-100.0) L 01/25/17 01:48 Urine Opiates Screen POSITIVE (NEGATIVE) H 01/25/17 03:00 Acetaminophen < 10.0 ug/mL (10.0-30.0) L 01/25/17 01:48 Ur Barbiturates Screen NEGATIVE (NEGATIVE) 01/25/17 03:00 Ur Phencyclidine Scrn NEGATIVE (NEGATIVE) 01/25/17 03:00 Amphetamines Screen POSITIVE (NEGATIVE) H 01/25/17 03:00 U Methamphetamines Scrn POSITIVE (NEGATIVE) H 01/25/17 03:00 U Benzodiazepines Scrn NEGATIVE (NEGATIVE) 01/25/17 03:00 U Cocaine Metab Screen NEGATIVE (NEGATIVE) 01/25/17 03:00 U Cannabinoids Screen NEGATIVE (NEGATIVE) 01/25/17 03:00 Ethyl Alcohol < 10 mg/dL (0-10) 01/25/17 01:48 RPR NONREACTIVE (NONREACTIVE) 01/25/17 01:48 HIV 1&2 Antibody Screen NEGATIVE (NEG) 01/26/17 05:02 - Physical Exam Vitals and I&O: Vital Signs Temp 98.7 F 02/04/17 14:00 Pulse 115 02/04/17 14:00 Resp 14 02/04/17 14:00 BP 133/62 02/04/17 14:00 Pulse Ox 96 02/04/17 14:00 Intake & Output 02/03/17 02/04/17 02/04/17 18:59 06:59 18:59 Intake Total 1400 100 100 Output Total 255 585 Balance 1145 -485 100 Intake: Intake, IV Amount 1400 100 100 Fluconazole 400mg/200mL 200 400 mg In 200 ml @ 100 mls/hr IV Q24HR [facility] Rx#: [id number] Meropenem 500 mg In 200 100 100 Sodium Chloride 0.9% 100 ml @ 100 mls/hr IV Q8H [facility] Rx#:[id number] Sodium Chloride 0.9% 1, 1000 000 ml @ 100 mls/hr IV . Q10H [facility] Rx#:[id number] Oral 0 Output: Drainage 45 85 Left Lower Abdomen 30 30 Right Lower Abdomen 15 55 Urine 210 500 Other: # Bowel Movements 0 0 Stool Characteristics Formed Foamy Active Medications: Current Medications Clonidine HCl (Catapres) 0.1 mg PO Q4H PRN PRN Reason: sbp >160 and diastolic >100 Stop: 03/31/17 16:11 Last Admin: 03/27/17 17:06 Dose: 0.1 mg Diltiazem HCl (Cardizem) 20 mg IVP Q4HR PRN PRN Reason: HR>120 Stop: 04/02/17 08:57 Last Admin: 02/03/17 21:57 Dose: 20 mg Enalaprilat (Vasotec) 2.5 mg IVP Q4HR PRN PRN Reason: systolic BP >160 Stop: 04/02/17 11:33 Hydromorphone HCl (Dilaudid) 1 mg IVP Q3H PRN PRN Reason: MODERATE PAIN Stop: 03/26/17 17:55 Last Admin: 02/03/17 16:10 Dose: 1 mg Hydromorphone HCl (Dilaudid) 2 mg IVP Q3H PRN PRN Reason: SEVERE PAIN Stop: 03/26/17 17:56 Last Admin: 02/04/17 08:05 Dose: 2 mg Fluconazole 400mg/200mL (Diflucan) 400 mg in 200 mls @ 100 mls/hr IV Q24HR [facility] Stop: 04/02/17 16:44 Last Infusion: 02/03/17 17:50 Dose: Infused Sodium Chloride (Nacl 0.9%) 1,000 mls @ 100 mls/hr IV .Q10H [facility] Stop: 04/02/17 17:44 Last Admin: 02/03/17 23:45 Dose: 100 mls/hr Meropenem 500 mg/ Sodium (Chloride) 100 mls @ 100 mls/hr IV Q8H [facility] Stop: 04/04/17 07:44 Last Admin: 02/04/17 15:00 Dose: 100 mls/hr Vancomycin HCl 0.75 gm/ Sodium (Chloride) 250 mls @ 165 mls/hr IV ONCE ONE Stop: 02/05/17 10:30 Insulin Aspart (Novolog) 0 units SUBQ Q6HR [facility] PRN Reason: Protocol Stop: 03/28/17 08:59 Last Admin: 02/04/17 11:59 Dose: Not Given Lactobacillus Rhamnosus (Culturelle) 1 each PO DAILY [facility] Stop: 03/29/17 08:59 Last Admin: 02/04/17 08:29 Dose: Not Given Lorazepam (Ativan) 1 mg IVP Q4HR PRN; Protocol PRN Reason: Anxiety Stop: 04/05/17 09:56 Last Admin: 02/04/17 10:30 Dose: 1 mg Metoclopramide HCl (Reglan) 10 mg IVP Q8HR PRN PRN Reason: ileus Stop: 04/05/17 15:01 Miscellaneous (Probiotic Screen) 1 ea PRN PRN PRN Reason: PROTOCOL Stop: 03/28/17 13:21 Miscellaneous (Vancomycin Iv Per Pharmacy) 1 ea PRN [facility] Stop: 04/04/17 05:14 Ondansetron HCl (Zofran) 4 mg IV UD PRN PRN Reason: Nausea / Vomiting Stop: 04/03/17 18:25 Pantoprazole Sodium (Protonix) 40 mg IVP BID [facility] Stop: 04/01/17 16:59 Last Admin: 02/04/17 08:27 Dose: 40 mg - Procedures Procedures: Procedures Procedure Code Date BYPASS STOMACH TO JEJUNUM, OPEN APPROACH [id number] 01/25/17 FUSION OF STOMACH AND BOWEL 26312 01/25/17 INSPECTION OF GASTROINTESTINAL TRACT, OPEN APPROACH [id number] 01/25/17 REMOVAL OF GALLBLADDER 51727 01/25/17 REOPENING OF ABDOMEN 40826 01/25/17 REPAIR STOMACH, OPEN APPROACH [id number] 01/25/17 RESECTION OF GALLBLADDER, OPEN APPROACH [id number] 01/25/17 RESPIRATORY VENTILATION, LESS THAN 24 CONSECUTIVE HOURS [id number] 01/25/17 STOMACH SURGERY PROCEDURE 32842 01/25/17 VENT MGMT INPAT INIT DAY 26020 01/25/17 Assessment/Plan - Problem List Patient Problems: All Active Problems H/O diabetes mellitus (Acute) Z86.39 H/O drug abuse (Acute) Z87.898 H/O: HTN (hypertension) (Acute) Z86.79 POSTCHOLECYSTECTOMY (Acute) UTI (urinary tract infection) (Acute) closeure og gastric perf (Acute) cplacement of new gj (Acute) h/o dementia (Acute) lysisi of adhesions (Acute) r/o sepsis (Acute) s/p surgery (Acute) septic shock (Acute) tachycardia (Acute) Nutritional Asmnt/Malnutr-PDOC - Dietary Evaluation Malnutrition Findings (Please click <Entered> for more info): Nutritional Asmnt/Malnutrition Start: 01/26/17 14: 32 Text: Status: Complete Freq: Document 01/26/17 14:32 GSUN (Rec: 01/26/17 14:51 GSUN [id number]) Nutritional Asmnt/Malnutrition Patient General Information Nutritional Screening Consult Diagnosis UTI, leukocytosis maybe reactive versus sepsis Pertinent Medical Hx/Surgical Hx HTN, DM, drug abuse, dementia Subjective Information 71 year old female, homeless. RD consult for BG >180. Pt was NPO at time of visit for CT abdomen/pelvis scan. Pt was agitated and in pain during visit. Pt refused to answer RD questions, repeatedly asked about bowel prep processes, then yelled at RD to leave. Pertinent Medications Dilaudid, Zofran Pertinent Labs 01/25: A1c 6, glucose 319H Nutritional Hx/Data Height 1.73 m Height (Calculated Centimeters) 172.7 Current Weight (lbs) 69.899 kg Weight (Calculated Kilograms) 69.9 Weight (Calculated Grams) 42344.6 [place] Body Weight 140lb Weight Status Approriate GI Symptoms Cultural/Ethnic/Ep[employer] Belief Unknown. Usual diet at home Unknown. Estimated Nutritional Goals BEE in Kcals: Using Current wt Calories/Kcals/Kg CBW 70kg Kcals Calculated 1750-2100kcal (25-30kcal/kg, ? possible sepsis) Protein: Using Current wt Protein Calculated 70g (1g/kg) Fluid: ml 1750-2100ml (1ml/kcal) Nutritional Problem 1. Problem Problem Altered nutrition related laboratory values related to Etiology DM aeb Signs/Symptoms: H&P, glucose 319H on adm Intervention/Recommendation Comments 1. NPO at time of visit. Diet advancement per MD, recommend [id number] to promtoe glycemic control. 2. Provide edu on DM as needed . Expected Outcomes/Goals Expected Outcomes/Goals 1. [place] to meet 100% of estimated nutritional needs.
[2017-02-04] MEDS: Fluconazole 400mg/200mL 400 MG/200 ML BAG IV SCH (16:28)
[2017-02-05] MEDS: Sodium Chloride 0.9% 1,000 ML IV SCH (02:13)
[2017-02-05] MEDS ORDERED: Fluconazole 200mg/100mL 200 MG/100 ML BAG IV ONE (02:30)
[2017-02-05 05:11] LABS: HEMATOCRIT 28.3 % (35.0-45.0); HEMOGLOBIN 9.6 gm/dL (11.7-16.1); MEAN CELL VOLUME 99.2 fl (81-100); MEAN CORPUSCULAR HEMOGLOBIN 33.5 pg (27.0-31.0); MEAN CORPUSCULAR HGB CONC 33.8 pg (28.0-36.0); PLATELET COUNT 370 Th/cmm (150-400); RED BLOOD COUNT 2.85 Mil/cmm (3.80-5.20); RED CELL DISTRIBUTION WIDTH 13.4 % (11.5-20.0)
[2017-02-05 05:19] LABS: WHITE BLOOD COUNT 22.6 Th/cmm (4.8-10.8)
[2017-02-05 05:29] LABS: ALB/GLOB RATIO 0.7 (1.0-1.8); ANION GAP 10.4 (7.0-16.0); BILIRUBIN,TOTAL 0.3 mg/dL (0.3-1.0); BUN/CREATININE RATIO 22.3; CALCIUM SERUM 7.9 mg/dL (8.6-10.3); CREATININE - SERUM 2.6 mg/dL (0.6-1.2); PHOSPHOROUS 4.2 mg/dL (2.5-5.0); POTASSIUM SERUM 3.4 mEq/L (3.5-5.1)
[2017-02-05 05:47] LABS: BAND NEUTROPHILE 2 % (0-10); EOSINOPHIL 1 % (0-5); HYPOCHROMIA 1+; NEUTROPHILS 86 % (40-80); PLATELET ESTIMATE ADEQUATE (NORMAL); POLYCHROMASIA 1+; TOTAL CELLS COUNTED 100
[2017-02-05] MEDS: INSULIN ASPART, RECOMBINANT 100 UNITS/ML SUBQ SCH ×4 (06:00→17:10)
[2017-02-05] MEDS: Lactobacillus Rhamnosus 10 Billion CFU Capsule PO SCH (09:35)
[2017-02-05] MEDS: HYDROmorphone 2 mg/mL 1mL Vial IVP PRN (09:36)
[2017-02-05] MEDS: Meropenem 500 MG in Sodium Chloride 0.9% 100 ML IV SCH ×2 (09:37→17:10)
--- NOTE | 2017-02-05 10:47 | General Progress Note ---
Subjective - Review of Systems Service Date: 02/05/17 Events since last encounter: WBC down very confused, may use restraints mo BM yet abdomen is soft with minimal peristalsis, on Reglan Objective - Results Result Diagrams: 02/05/17 04:40 02/05/17 04:40 Recent Labs: Laboratory Last Values WBC 22.6 Th/cmm (4.8-10.8) H* D 02/05/17 04:40 RBC 2.85 Mil/cmm (3.80-5.20) L 02/05/17 04:40 Hgb 9.6 gm/dL (11.7-16.1) L 02/05/17 04:40 Hct 28.3 % (35.0-45.0) L 02/05/17 04:40 MCV 99.2 fl (81-100) 02/05/17 04:40 MCH 33.5 pg (27.0-31.0) H 02/05/17 04:40 MCHC Differential 33.8 pg (28.0-36.0) 02/05/17 04:40 RDW 13.4 % (11.5-20.0) 02/05/17 04:40 Plt Count 370 Th/cmm (150-400) 02/05/17 04:40 MPV 8.0 fl 02/05/17 04:40 Neutrophils % [employer] 02/04/17 04:39 Band Neutrophils % 2 % (0-10) 02/05/17 04:40 Lymphocytes % [employer]ENT [employer]CH[employer]IC 02/04/17 04:39 Monocytes % [employer]ENT [employer]CH[employer]IC 02/01/17 15:55 Eosinophils % [employer]ENT MECH[employer]IC 02/04/17 04:39 Basophils % [employer]ENT MECH[employer]IC 02/01/17 15:55 Neutrophils (Manual) 86 % (40-80) H 02/05/17 04:40 Lymphocytes 6 % (20-50) L 02/05/17 04:40 Monocytes 5 % (2-10) 02/05/17 04:40 Eosinophils 1 % (0-5) 02/05/17 04:40 Basophils 1 % (0-3) 02/02/17 04:19 Metamyelocytes 2 % (0-0) H 02/02/17 04:19 Myelocytes 2 % 01/31/17 05:40 Hypochromia 1+ 02/05/17 04:40 Platelet Estimate ADEQUATE (NORMAL) 02/05/17 04:40 Platelet Morphology NORMAL (NORMAL) 02/04/17 04:39 Polychromasia 1+ 02/05/17 04:40 Anisocytosis 1+ 02/03/17 04:53 RBC Morph Micro Appear NORMAL (NORMAL) 02/04/17 04:39 Smear Path Review SEE BELOW 02/03/17 04:53 Eos Smear Source URINE 02/02/17 06:00 Eos Smear Total Cells NONE SEEN (NONE SEEN) 02/02/17 06:00 PT 9.9 SECONDS (9.5-11.5) 01/25/17 01:48 INR 0.95 (0.5-1.4) 01/25/17 01:48 Specimen Source Arterial 01/27/17 09:13 Sample Site Right Radial 01/27/17 09:13 pH 7.36 (7.35-7.45) 01/27/17 09:13 pCO2 41.0 mmHg (35.0-45.0) 01/27/17 09:13 pO2 100.0 mmHg (80.0-100.0) 01/27/17 09:13 HCO3 23.2 mEq/L (20.0-26.0) 01/27/17 09:13 Base Excess -2.2 mEq/L (-3.0-3.0) 01/27/17 09:13 O2 Saturation 97.0 % (92.0-100.0) 01/27/17 09:13 Luther Test PASS 01/27/17 09:13 Vent Rate 13 01/27/17 09:13 Inspired O2 30 01/27/17 09:13 Tidal Volume 500 01/27/17 09:13 PEEP 5 01/27/17 09:13 Pressure (ins/psv/peep) N/A 01/26/17 21:00 Critical Value PW 01/27/17 09:13 Sodium 148 mEq/L (136-145) H 02/05/17 04:40 Potassium 3.4 mEq/L (3.5-5.1) L 02/05/17 04:40 Chloride 121 mEq/L (98-107) H 02/05/17 04:40 Carbon Dioxide 20.0 mEq/L (21.0-31.0) L 02/05/17 04:40 Anion Gap 10.4 (7.0-16.0) 02/05/17 04:40 BUN 58 mg/dL (7-25) H 02/05/17 04:40 Creatinine 2.6 mg/dL (0.6-1.2) H 02/05/17 04:40 Est GFR ( Amer) 23.5 ml/min (>90) 02/05/17 04:40 Est GFR (Non-Af Amer) 19.4 ml/min 02/05/17 04:40 BUN/Creatinine Ratio 22.3 02/05/17 04:40 Glucose 122 mg/dL (70-105) H 02/05/17 04:40 POC Glucose 118 MG/DL (70 - 105) H 02/05/17 01:05 Hemoglobin A1c % 6.0 % (4.0-6.0) 01/25/17 01:48 Whole Bld Lactic Acid 1.68 mmol/L (0.60-1.99) 02/03/17 04:53 Uric Acid 4.4 mg/dL (2.3-6.6) 02/02/17 04:19 Calcium 7.9 mg/dL (8.6-10.3) L 02/05/17 04:40 Phosphorus 4.2 mg/dL (2.5-5.0) 02/05/17 04:40 Magnesium 2.0 mg/dL (1.9-2.7) 02/05/17 04:40 Total Bilirubin 0.3 mg/dL (0.3-1.0) 02/05/17 04:40 AST 25 U/L (13-39) 02/05/17 04:40 ALT 13 U/L (7-52) 02/05/17 04:40 Alkaline Phosphatase 88 U/L (34-104) 02/05/17 04:40 Troponin I < 0.01 ng/mL (0.01-0.05) L 01/25/17 01:48 Total Protein 4.6 gm/dL (6.0-8.3) L 02/05/17 04:40 Albumin 1.9 gm/dL (3.7-5.3) L 02/05/17 04:40 Globulin 2.7 gm/dL 02/05/17 04:40 Albumin/Globulin Ratio 0.7 (1.0-1.8) L 02/05/17 04:40 Triglycerides 98 mg/dL (<150) 01/25/17 01:48 Cholesterol 146 mg/dL (<200) 01/25/17 01:48 LDL Cholesterol Direct 37 mg/dL (75-193) L 01/25/17 01:48 HDL Cholesterol 83 mg/dL (23-92) 01/25/17 01:48 TSH 1.45 uIU/ml (0.34-5.60) 01/25/17 01:48 Urine Source RANDOM 02/02/17 06:00 Urine Color BROWN 02/02/17 06:00 Urine Clarity SL. CLOUDY (CLEAR) 02/02/17 06:00 Urine pH 6.0 02/02/17 06:00 Ur Specific [place] 1.025 (1.005-1.030) 02/02/17 06:00 Urine Protein >300 mg/dL (NEGATIVE) H 02/02/17 06:00 Urine Glucose (UA) NEGATIVE mg/dL (NEGATIVE) 02/02/17 06:00 Urine Ketones NEGATIVE mg/dL (NEGATIVE) 02/02/17 06:00 Urine Blood LARGE (NEGATIVE) H 02/02/17 06:00 Urine Nitrate NEGATIVE (NEGATIVE) 02/02/17 06:00 Urine Bilirubin SMALL (NEGATIVE) H 02/02/17 06:00 Urine Urobilinogen 0.2 E.U./dL (0.2 - 1.0) 02/02/17 06:00 Ur Leukocyte Esterase NEGATIVE (NEGATIVE) 02/02/17 06:00 Urine RBC 50-100 /hpf (0-5) H 02/02/17 06:00 Urine WBC 6-10 /hpf (0-5) H 02/02/17 06:00 Ur Epithelial Cells MODERATE /lpf (FEW) 02/02/17 06:00 Amorphous Sediment MANY URATES (NONE SEEN) 02/02/17 06:00 Urine Bacteria MODERATE /hpf (NONE SEEN) 02/02/17 06:00 Ur Random Sodium 59 mmol/L 02/02/17 06:00 Urine Creatinine 129.0 mg/dl (28.0-217.0) 02/02/17 06:00 Vancomycin Trough 6.1 ug/mL (10-20) L 01/29/17 23:03 Random Vancomycin 19.0 ug/mL (5.0-40.0) 02/04/17 04:39 Salicylates < 25.0 mg/L (30.0-100.0) L 01/25/17 01:48 Urine Opiates Screen POSITIVE (NEGATIVE) H 01/25/17 03:00 Acetaminophen < 10.0 ug/mL (10.0-30.0) L 01/25/17 01:48 Ur Barbiturates Screen NEGATIVE (NEGATIVE) 01/25/17 03:00 Ur Phencyclidine Scrn NEGATIVE (NEGATIVE) 01/25/17 03:00 Amphetamines Screen POSITIVE (NEGATIVE) H 01/25/17 03:00 U Methamphetamines Scrn POSITIVE (NEGATIVE) H 01/25/17 03:00 U Benzodiazepines Scrn NEGATIVE (NEGATIVE) 01/25/17 03:00 U Cocaine Metab Screen NEGATIVE (NEGATIVE) 01/25/17 03:00 U Cannabinoids Screen NEGATIVE (NEGATIVE) 01/25/17 03:00 Ethyl Alcohol < 10 mg/dL (0-10) 01/25/17 01:48 RPR NONREACTIVE (NONREACTIVE) 01/25/17 01:48 HIV 1&2 Antibody Screen NEGATIVE (NEG) 01/26/17 05:02 - Physical Exam Vitals and I&O: Vital Signs Temp 99.3 F 02/05/17 08:00 Pulse 121 02/05/17 08:00 Resp 21 02/05/17 08:00 BP 158/75 02/05/17 08:00 Pulse Ox 99 02/05/17 08:00 Intake & Output 02/04/17 02/05/17 02/05/17 18:59 06:59 18:59 Intake Total 400 1100 Output Total 1095 1760 Balance -699 -492 Intake: Intake, IV Amount 400 1100 Fluconazole 400mg/200mL 200 400 mg In 200 ml @ 100 mls/hr IV Q24HR [facility] Rx#: [id number] Meropenem 500 mg In 200 100 Sodium Chloride 0.9% 100 ml @ 100 mls/hr IV Q8H [facility] Rx#:[id number] Sodium Chloride 0.9% 1, 1000 000 ml @ 100 mls/hr IV . Q10H [facility] Rx#:[id number] Output: Drainage 115 60 Left Lower Abdomen 105 10 Right Lower Abdomen 10 50 Urine 980 1700 Other: # Bowel Movements 0 Active Medications: Current Medications Clonidine HCl (Catapres) 0.1 mg PO Q4H PRN PRN Reason: sbp >160 and diastolic >100 Stop: 03/31/17 16:11 Last Admin: 01/31/17 17:06 Dose: 0.1 mg Diltiazem HCl (Cardizem) 20 mg IVP Q4HR PRN PRN Reason: HR>120 Stop: 04/02/17 08:57 Last Admin: 02/03/17 21:57 Dose: 20 mg Enalaprilat (Vasotec) 2.5 mg IVP Q4HR PRN PRN Reason: systolic BP >160 Stop: 04/02/17 11:33 Hydromorphone HCl (Dilaudid) 1 mg IVP Q3H PRN PRN Reason: MODERATE PAIN Stop: 03/26/17 17:55 Last Admin: 02/03/17 16:10 Dose: 1 mg Hydromorphone HCl (Dilaudid) 2 mg IVP Q3H PRN PRN Reason: SEVERE PAIN Stop: 03/26/17 17:56 Last Admin: 02/05/17 09:36 Dose: 2 mg Sodium Chloride (Nacl 0.9%) 1,000 mls @ 100 mls/hr IV .Q10H [facility] Stop: 04/02/17 17:44 Last Admin: 02/05/17 02:13 Dose: 100 mls/hr Meropenem 500 mg/ Sodium (Chloride) 100 mls @ 100 mls/hr IV Q8H [facility] Stop: 04/04/17 07:44 Last Admin: 02/05/17 09:37 Dose: 100 mls/hr Fluconazole (Diflucan) 200 mg in 100 mls @ 100 mls/hr IV Q24HR [facility] Stop: 04/07/17 04:59 Insulin Aspart (Novolog) 0 units SUBQ Q6HR [facility] PRN Reason: Protocol Stop: 03/28/17 08:59 Last Admin: 02/05/17 06:00 Dose: Not Given Lactobacillus Rhamnosus (Culturelle) 1 each PO DAILY [facility] Stop: 03/29/17 08:59 Last Admin: 02/05/17 09:35 Dose: 1 each Lorazepam (Ativan) 1 mg IVP Q4HR PRN; Protocol PRN Reason: Anxiety Stop: 04/05/17 09:56 Last Admin: 02/04/17 10:30 Dose: 1 mg Metoclopramide HCl (Reglan) 10 mg IVP Q8HR PRN PRN Reason: ileus Stop: 04/05/17 15:01 Last Admin: 02/04/17 16:32 Dose: 10 mg Miscellaneous (Probiotic Screen) 1 ea MC PRN PRN PRN Reason: PROTOCOL Stop: 03/28/17 13:21 Miscellaneous (Vancomycin Iv Per Pharmacy) 1 ea MC PRN [facility] Stop: 04/04/17 05:14 Ondansetron HCl (Zofran) 4 mg IV UD PRN PRN Reason: Nausea / Vomiting Stop: 04/03/17 18:25 Pantoprazole Sodium (Protonix) 40 mg IVP BID ANISH Stop: 04/01/17 16:59 Last Admin: 02/05/17 09:35 Dose: 40 mg - Procedures Procedures: Procedures Procedure Code Date BYPASS STOMACH TO JEJUNUM, OPEN APPROACH [id number] 01/25/17 FUSION OF STOMACH AND BOWEL 84222 01/25/17 INSPECTION OF GASTROINTESTINAL TRACT, OPEN APPROACH [id number] 01/25/17 REMOVAL OF GALLBLADDER 96948 01/25/17 REOPENING OF ABDOMEN 74328 01/25/17 REPAIR STOMACH, OPEN APPROACH [id number] 01/25/17 RESECTION OF GALLBLADDER, OPEN APPROACH [id number] 01/25/17 RESPIRATORY VENTILATION, LESS THAN 24 CONSECUTIVE HOURS [id number] 01/25/17 STOMACH SURGERY PROCEDURE 05504 01/25/17 VENT MGMT INPAT INIT DAY 83849 01/25/17 Assessment/Plan - Problem List Patient Problems: All Active Problems H/O diabetes mellitus (Acute) Z86.39 H/O drug abuse (Acute) Z87.898 H/O: HTN (hypertension) (Acute) Z86.79 POSTCHOLECYSTECTOMY (Acute) UTI (urinary tract infection) (Acute) closeure og gastric perf (Acute) cplacement of new gj (Acute) h/o dementia (Acute) lysisi of adhesions (Acute) r/o sepsis (Acute) s/p surgery (Acute) septic shock (Acute) tachycardia (Acute) Nutritional Asmnt/Malnutr-PDOC - Dietary Evaluation Malnutrition Findings (Please click <Entered> for more info): Nutritional Asmnt/Malnutrition Start: 01/26/17 14: 32 Text: Status: Complete Freq: Document 01/26/17 14:32 GSISMAEL (Rec: 01/26/17 14:51 GSISMAEL [id number]) Nutritional Asmnt/Malnutrition Patient General Information Nutritional Screening Consult Diagnosis UTI, leukocytosis maybe reactive versus sepsis Pertinent Medical Hx/Surgical Hx HTN, DM, drug abuse, dementia Subjective Information 71 year old female, homeless. RD consult for BG >180. Pt was NPO at time of visit for CT abdomen/pelvis scan. Pt was agitated and in pain during visit. Pt refused to answer RD questions, repeatedly asked about bowel prep processes, then yelled at RD to leave. Pertinent Medications Dilaudid, Zofran Pertinent Labs 01/25: A1c 6, glucose 319H Nutritional Hx/Data Height 1.73 m Height (Calculated Centimeters) 172.7 Current Weight (lbs) 69.899 kg Weight (Calculated Kilograms) 69.9 Weight (Calculated Grams) 83540.6 [place] Body Weight 140lb Weight Status Approriate GI Symptoms Cultural/Ethnic/Religion Belief Unknown. Usual diet at home Unknown. Estimated Nutritional Goals BEE in Kcals: Using Current wt Calories/Kcals/Kg CBW 70kg Kcals Calculated 1750-2100kcal (25-30kcal/kg, ? possible sepsis) Protein: Using Current wt Protein Calculated 70g (1g/kg) Fluid: ml 1750-2100ml (1ml/kcal) Nutritional Problem 1. Problem Problem Altered nutrition related laboratory values related to Etiology DM aeb Signs/Symptoms: H&P, glucose 319H on adm Intervention/Recommendation Comments 1. NPO at time of visit. Diet advancement per MD, recommend [id number] to promtoe glycemic control. 2. Provide edu on DM as needed . Expected Outcomes/Goals Expected Outcomes/Goals 1. Po [place] to meet 100% of estimated nutritional needs.
--- NOTE | 2017-02-05 17:55 | General Progress Note ---
Subjective - Review of Systems Service Date: 02/05/17 (lethargic ) Objective - Results Result Diagrams: 02/05/17 04:40 02/05/17 04:40 Recent Labs: Laboratory Last Values WBC 22.6 Th/cmm (4.8-10.8) H* D 02/05/17 04:40 RBC 2.85 Mil/cmm (3.80-5.20) L 02/05/17 04:40 Hgb 9.6 gm/dL (11.7-16.1) L 02/05/17 04:40 Hct 28.3 % (35.0-45.0) L 02/05/17 04:40 MCV 99.2 fl (81-100) 02/05/17 04:40 MCH 33.5 pg (27.0-31.0) H 02/05/17 04:40 MCHC Differential 33.8 pg (28.0-36.0) 02/05/17 04:40 RDW 13.4 % (11.5-20.0) 02/05/17 04:40 Plt Count 370 Th/cmm (150-400) 02/05/17 04:40 MPV 8.0 fl 02/05/17 04:40 Neutrophils % SPLUNK DEVELOPER 02/04/17 04:39 Band Neutrophils % 2 % (0-10) 02/05/17 04:40 Lymphocytes % SPLUNK DEVELOPER 02/04/17 04:39 Monocytes % SPLUNK DEVELOPER 02/01/17 15:55 Eosinophils % SPLUNK DEVELOPER 02/04/17 04:39 Basophils % SPLUNK DEVELOPER 02/01/17 15:55 Neutrophils (Manual) 86 % (40-80) H 02/05/17 04:40 Lymphocytes 6 % (20-50) L 02/05/17 04:40 Monocytes 5 % (2-10) 02/05/17 04:40 Eosinophils 1 % (0-5) 02/05/17 04:40 Basophils 1 % (0-3) 02/02/17 04:19 Metamyelocytes 2 % (0-0) H 02/02/17 04:19 Myelocytes 2 % 01/31/17 05:40 Hypochromia 1+ 02/05/17 04:40 Platelet Estimate ADEQUATE (NORMAL) 02/05/17 04:40 Platelet Morphology NORMAL (NORMAL) 02/04/17 04:39 Polychromasia 1+ 02/05/17 04:40 Anisocytosis 1+ 02/03/17 04:53 RBC Morph Micro Appear NORMAL (NORMAL) 02/04/17 04:39 Smear Path Review SEE BELOW 02/03/17 04:53 Eos Smear Source URINE 02/02/17 06:00 Eos Smear Total Cells NONE SEEN (NONE SEEN) 02/02/17 06:00 PT 9.9 SECONDS (9.5-11.5) 01/25/17 01:48 INR 0.95 (0.5-1.4) 01/25/17 01:48 Specimen Source Arterial 01/27/17 09:13 Sample Site Right Radial 01/27/17 09:13 pH 7.36 (7.35-7.45) 01/27/17 09:13 pCO2 41.0 mmHg (35.0-45.0) 01/27/17 09:13 pO2 100.0 mmHg (80.0-100.0) 01/27/17 09:13 HCO3 23.2 mEq/L (20.0-26.0) 01/27/17 09:13 Base Excess -2.2 mEq/L (-3.0-3.0) 01/27/17 09:13 O2 Saturation 97.0 % (92.0-100.0) 01/27/17 09:13 Luther Test PASS 01/27/17 09:13 Vent Rate 13 01/27/17 09:13 Inspired O2 30 01/27/17 09:13 Tidal Volume 500 01/27/17 09:13 PEEP 5 01/27/17 09:13 Pressure (ins/psv/peep) N/A 01/26/17 21:00 Critical Value PW 01/27/17 09:13 Sodium 148 mEq/L (136-145) H 02/05/17 04:40 Potassium 3.4 mEq/L (3.5-5.1) L 02/05/17 04:40 Chloride 121 mEq/L (98-107) H 02/05/17 04:40 Carbon Dioxide 20.0 mEq/L (21.0-31.0) L 02/05/17 04:40 Anion Gap 10.4 (7.0-16.0) 02/05/17 04:40 BUN 58 mg/dL (7-25) H 02/05/17 04:40 Creatinine 2.6 mg/dL (0.6-1.2) H 02/05/17 04:40 Est GFR ( Amer) 23.5 ml/min (>90) 02/05/17 04:40 Est GFR (Non-Af Amer) 19.4 ml/min 02/05/17 04:40 BUN/Creatinine Ratio 22.3 02/05/17 04:40 Glucose 122 mg/dL (70-105) H 02/05/17 04:40 POC Glucose 95 MG/DL (70 - 105) 02/05/17 16:10 Hemoglobin A1c % 6.0 % (4.0-6.0) 01/25/17 01:48 Whole Bld Lactic Acid 1.68 mmol/L (0.60-1.99) 02/03/17 04:53 Uric Acid 4.4 mg/dL (2.3-6.6) 02/02/17 04:19 Calcium 7.9 mg/dL (8.6-10.3) L 02/05/17 04:40 Phosphorus 4.2 mg/dL (2.5-5.0) 02/05/17 04:40 Magnesium 2.0 mg/dL (1.9-2.7) 02/05/17 04:40 Total Bilirubin 0.3 mg/dL (0.3-1.0) 02/05/17 04:40 AST 25 U/L (13-39) 02/05/17 04:40 ALT 13 U/L (7-52) 02/05/17 04:40 Alkaline Phosphatase 88 U/L (34-104) 02/05/17 04:40 Troponin I < 0.01 ng/mL (0.01-0.05) L 01/25/17 01:48 Total Protein 4.6 gm/dL (6.0-8.3) L 02/05/17 04:40 Albumin 1.9 gm/dL (3.7-5.3) L 02/05/17 04:40 Globulin 2.7 gm/dL 02/05/17 04:40 Albumin/Globulin Ratio 0.7 (1.0-1.8) L 02/05/17 04:40 Triglycerides 98 mg/dL (<150) 01/25/17 01:48 Cholesterol 146 mg/dL (<200) 01/25/17 01:48 LDL Cholesterol Direct 37 mg/dL (75-193) L 01/25/17 01:48 HDL Cholesterol 83 mg/dL (23-92) 01/25/17 01:48 TSH 1.45 uIU/ml (0.34-5.60) 01/25/17 01:48 Urine Source RANDOM 02/02/17 06:00 Urine Color BROWN 02/02/17 06:00 Urine Clarity SL. CLOUDY (CLEAR) 02/02/17 06:00 Urine pH 6.0 02/02/17 06:00 Ur Specific [place] 1.025 (1.005-1.030) 02/02/17 06:00 Urine Protein >300 mg/dL (NEGATIVE) H 02/02/17 06:00 Urine Glucose (UA) NEGATIVE mg/dL (NEGATIVE) 02/02/17 06:00 Urine Ketones NEGATIVE mg/dL (NEGATIVE) 02/02/17 06:00 Urine Blood LARGE (NEGATIVE) H 02/02/17 06:00 Urine Nitrate NEGATIVE (NEGATIVE) 02/02/17 06:00 Urine Bilirubin SMALL (NEGATIVE) H 02/02/17 06:00 Urine Urobilinogen 0.2 E.U./dL (0.2 - 1.0) 02/02/17 06:00 Ur Leukocyte Esterase NEGATIVE (NEGATIVE) 02/02/17 06:00 Urine RBC 50-100 /hpf (0-5) H 02/02/17 06:00 Urine WBC 6-10 /hpf (0-5) H 02/02/17 06:00 Ur Epithelial Cells MODERATE /lpf (FEW) 02/02/17 06:00 Amorphous Sediment MANY URATES (NONE SEEN) 02/02/17 06:00 Urine Bacteria MODERATE /hpf (NONE SEEN) 02/02/17 06:00 Ur Random Sodium 59 mmol/L 02/02/17 06:00 Urine Creatinine 129.0 mg/dl (28.0-217.0) 02/02/17 06:00 Vancomycin Trough 6.1 ug/mL (10-20) L 01/29/17 23:03 Random Vancomycin 19.0 ug/mL (5.0-40.0) 02/04/17 04:39 Salicylates < 25.0 mg/L (30.0-100.0) L 01/25/17 01:48 Urine Opiates Screen POSITIVE (NEGATIVE) H 01/25/17 03:00 Acetaminophen < 10.0 ug/mL (10.0-30.0) L 01/25/17 01:48 Ur Barbiturates Screen NEGATIVE (NEGATIVE) 01/25/17 03:00 Ur Phencyclidine Scrn NEGATIVE (NEGATIVE) 01/25/17 03:00 Amphetamines Screen POSITIVE (NEGATIVE) H 01/25/17 03:00 U Methamphetamines Scrn POSITIVE (NEGATIVE) H 01/25/17 03:00 U Benzodiazepines Scrn NEGATIVE (NEGATIVE) 01/25/17 03:00 U Cocaine Metab Screen NEGATIVE (NEGATIVE) 01/25/17 03:00 U Cannabinoids Screen NEGATIVE (NEGATIVE) 01/25/17 03:00 Ethyl Alcohol < 10 mg/dL (0-10) 01/25/17 01:48 RPR NONREACTIVE (NONREACTIVE) 01/25/17 01:48 HIV 1&2 Antibody Screen NEGATIVE (NEG) 01/26/17 05:02 - Physical Exam Vitals and I&O: Vital Signs Temp 99.1 F 02/05/17 16:00 Pulse 123 02/05/17 16:00 Resp 22 02/05/17 16:00 BP 148/83 02/05/17 16:00 Pulse Ox 96 02/05/17 16:00 Intake & Output 02/04/17 02/05/17 02/05/17 18:59 06:59 18:59 Intake Total 400 1100 455 Output Total 1095 1760 Balance -297 -572 455 Intake: Intake, IV Amount 400 1100 455 Fluconazole 400mg/200mL 200 400 mg In 200 ml @ 100 mls/hr IV Q24HR [facility] Rx#: [id number] Meropenem 500 mg In 200 100 100 Sodium Chloride 0.9% 100 ml @ 100 mls/hr IV Q8H [facility] Rx#:[id number] Potassium Chloride 10 meq 105 In Sodium Chloride 0.9% 100 ml @ 105 mls/hr IV X1 ONE Rx#:[id number] Sodium Chloride 0.9% 1, 1000 000 ml @ 100 mls/hr IV . Q10H [facility] Rx#:[id number] Vancomycin HCl 0.75 gm In 250 Sodium Chloride 0.9% 250 ml @ 165 mls/hr IV ONCE ONE Rx#:[id number] Output: Drainage 115 60 Left Lower Abdomen 105 10 Right Lower Abdomen 10 50 Urine 980 1700 Other: # Bowel Movements 0 Active Medications: Current Medications Clonidine HCl (Catapres) 0.1 mg PO Q4H PRN PRN Reason: sbp >160 and diastolic >100 Stop: 03/31/17 16:11 Last Admin: 01/31/17 17:06 Dose: 0.1 mg Diltiazem HCl (Cardizem) 20 mg IVP Q4HR PRN PRN Reason: HR>120 Stop: 04/02/17 08:57 Last Admin: 02/03/17 21:57 Dose: 20 mg Enalaprilat (Vasotec) 2.5 mg IVP Q4HR PRN PRN Reason: systolic BP >160 Stop: 04/02/17 11:33 Hydromorphone HCl (Dilaudid) 1 mg IVP Q3H PRN PRN Reason: MODERATE PAIN Stop: 03/26/17 17:55 Last Admin: 02/03/17 16:10 Dose: 1 mg Hydromorphone HCl (Dilaudid) 2 mg IVP Q3H PRN PRN Reason: SEVERE PAIN Stop: 03/26/17 17:56 Last Admin: 02/05/17 09:36 Dose: 2 mg Sodium Chloride (Nacl 0.9%) 1,000 mls @ 100 mls/hr IV .Q10H [facility] Stop: 04/02/17 17:44 Last Admin: 02/05/17 02:13 Dose: 100 mls/hr Meropenem 500 mg/ Sodium (Chloride) 100 mls @ 100 mls/hr IV Q8H [facility] Stop: 04/04/17 07:44 Last Admin: 02/05/17 17:10 Dose: 100 mls/hr Fluconazole (Diflucan) 200 mg in 100 mls @ 100 mls/hr IV Q24HR [facility] Stop: 04/07/17 04:59 Insulin Aspart (Novolog) 0 units SUBQ Q6HR [facility] PRN Reason: Protocol Stop: 03/28/17 08:59 Last Admin: 02/05/17 17:10 Dose: Not Given Lactobacillus Rhamnosus (Culturelle) 1 each PO DAILY [facility] Stop: 03/29/17 08:59 Last Admin: 02/05/17 09:35 Dose: 1 each Lorazepam (Ativan) 1 mg IVP Q4HR PRN; Protocol PRN Reason: Anxiety Stop: 04/05/17 09:56 Last Admin: 02/05/17 14:00 Dose: 1 mg Metoclopramide HCl (Reglan) 10 mg IVP Q8HR PRN PRN Reason: ileus Stop: 04/05/17 15:01 Last Admin: 02/04/17 16:32 Dose: 10 mg Miscellaneous (Probiotic Screen) 1 ea PRN PRN PRN Reason: PROTOCOL Stop: 03/28/17 13:21 Miscellaneous (Vancomycin Iv Per Pharmacy) 1 ea [facility] PRN [facility] Stop: 04/04/17 05:14 Ondansetron HCl (Zofran) 4 mg IV UD PRN PRN Reason: Nausea / Vomiting Stop: 04/03/17 18:25 Pantoprazole Sodium (Protonix) 40 mg IVP BID [facility] Stop: 04/01/17 16:59 Last Admin: 02/05/17 17:11 Dose: 40 mg General: Alert Neck: Supple Cardiovascular: Regular rate, Other Abdomen: Distended, Rebound, Guarding - Procedures Procedures: Procedures Procedure Code Date BYPASS STOMACH TO JEJUNUM, OPEN APPROACH [id number] 01/25/17 FUSION OF STOMACH AND BOWEL 14450 01/25/17 INSPECTION OF GASTROINTESTINAL TRACT, OPEN APPROACH [id number] 01/25/17 REMOVAL OF GALLBLADDER 90105 01/25/17 REOPENING OF ABDOMEN 59636 01/25/17 REPAIR STOMACH, OPEN APPROACH [id number] 01/25/17 RESECTION OF GALLBLADDER, OPEN APPROACH [id number] 01/25/17 RESPIRATORY VENTILATION, LESS THAN 24 CONSECUTIVE HOURS [id number] 01/25/17 STOMACH SURGERY PROCEDURE 64791 01/25/17 VENT MGMT INPAT INIT DAY 80546 01/25/17 Assessment/Plan - Problem List Patient Problems: All Active Problems H/O diabetes mellitus (Acute) Z86.39 H/O drug abuse (Acute) Z87.898 H/O: HTN (hypertension) (Acute) Z86.79 POSTCHOLECYSTECTOMY (Acute) UTI (urinary tract infection) (Acute) closeure og gastric perf (Acute) cplacement of new gj (Acute) h/o dementia (Acute) lysisi of adhesions (Acute) r/o sepsis (Acute) s/p surgery (Acute) septic shock (Acute) tachycardia (Acute) Nutritional Asmnt/Malnutr-PDOC - Dietary Evaluation Malnutrition Findings (Please click <Entered> for more info): Nutritional Asmnt/Malnutrition Start: 01/26/17 14: 32 Text: Status: Complete Freq: Document 01/26/17 14:32 GSUN (Rec: 01/26/17 14:51 GSUN [id number]) Nutritional Asmnt/Malnutrition Patient General Information Nutritional Screening Consult Diagnosis UTI, leukocytosis maybe reactive versus sepsis Pertinent Medical Hx/Surgical Hx HTN, DM, drug abuse, dementia Subjective Information 71 year old female, homeless. RD consult for BG >180. Pt was NPO at time of visit for CT abdomen/pelvis scan. Pt was agitated and in pain during visit. Pt refused to answer RD questions, repeatedly asked about bowel prep processes, then yelled at RD to leave. Pertinent Medications Dilaudid, Zofran Pertinent Labs 01/25: A1c 6, glucose 319H Nutritional Hx/Data Height 1.73 m Height (Calculated Centimeters) 172.7 Current Weight (lbs) 69.899 kg Weight (Calculated Kilograms) 69.9 Weight (Calculated Grams) 08436.6 [place] Body Weight 140lb Weight Status Approriate GI Symptoms Cultural/Ethnic/Synagogue Belief Unknown. Usual diet at home Unknown. Estimated Nutritional Goals BEE in Kcals: Using Current wt Calories/Kcals/Kg CBW 70kg Kcals Calculated 1750-2100kcal (25-30kcal/kg, ? possible sepsis) Protein: Using Current wt Protein Calculated 70g (1g/kg) Fluid: ml 1750-2100ml (1ml/kcal) Nutritional Problem 1. Problem Problem Altered nutrition related laboratory values related to Etiology DM aeb Signs/Symptoms: H&P, glucose 319H on adm Intervention/Recommendation Comments 1. NPO at time of visit. Diet advancement per MD, recommend [id number] to promtoe glycemic control. 2. Provide edu on DM as needed . Expected Outcomes/Goals Expected Outcomes/Goals 1. [place] to meet 100% of estimated nutritional needs.
[2017-02-05] MEDS: D5-0.45NS 1,000 ML IV SCH (18:33)
--- NOTE | 2017-02-05 23:51 | Infectious Disease Prog Note ---
Infectious Disease Subjective - Review of Systems Service Date: 02/05/17 Subjective: Doing well. Infectious Disease Objective - Results Result Diagrams: 02/05/17 04:40 02/05/17 04:40 Recent Labs: Laboratory Last Values WBC 22.6 Th/cmm (4.8-10.8) H* D 02/05/17 04:40 RBC 2.85 Mil/cmm (3.80-5.20) L 02/05/17 04:40 Hgb 9.6 gm/dL (11.7-16.1) L 02/05/17 04:40 Hct 28.3 % (35.0-45.0) L 02/05/17 04:40 MCV 99.2 fl (81-100) 02/05/17 04:40 MCH 33.5 pg (27.0-31.0) H 02/05/17 04:40 MCHC Differential 33.8 pg (28.0-36.0) 02/05/17 04:40 RDW 13.4 % (11.5-20.0) 02/05/17 04:40 Plt Count 370 Th/cmm (150-400) 02/05/17 04:40 MPV 8.0 fl 02/05/17 04:40 Neutrophils % ELECTRIC SCOOP OPERATOR 02/04/17 04:39 Band Neutrophils % 2 % (0-10) 02/05/17 04:40 Lymphocytes % ELECTRIC SCOOP OPERATOR 02/04/17 04:39 Monocytes % ELECTRIC SCOOP OPERATOR 02/01/17 15:55 Eosinophils % ELECTRIC SCOOP OPERATOR 02/04/17 04:39 Basophils % ELECTRIC SCOOP OPERATOR 02/01/17 15:55 Neutrophils (Manual) 86 % (40-80) H 02/05/17 04:40 Lymphocytes 6 % (20-50) L 02/05/17 04:40 Monocytes 5 % (2-10) 02/05/17 04:40 Eosinophils 1 % (0-5) 02/05/17 04:40 Basophils 1 % (0-3) 02/02/17 04:19 Metamyelocytes 2 % (0-0) H 02/02/17 04:19 Myelocytes 2 % 01/31/17 05:40 Hypochromia 1+ 02/05/17 04:40 Platelet Estimate ADEQUATE (NORMAL) 02/05/17 04:40 Platelet Morphology NORMAL (NORMAL) 02/04/17 04:39 Polychromasia 1+ 02/05/17 04:40 Anisocytosis 1+ 02/03/17 04:53 RBC Morph Micro Appear NORMAL (NORMAL) 02/04/17 04:39 Smear Path Review SEE BELOW 02/03/17 04:53 Eos Smear Source URINE 02/02/17 06:00 Eos Smear Total Cells NONE SEEN (NONE SEEN) 02/02/17 06:00 PT 9.9 SECONDS (9.5-11.5) 01/25/17 01:48 INR 0.95 (0.5-1.4) 01/25/17 01:48 Specimen Source Arterial 01/27/17 09:13 Sample Site Right Radial 01/27/17 09:13 pH 7.36 (7.35-7.45) 01/27/17 09:13 pCO2 41.0 mmHg (35.0-45.0) 01/27/17 09:13 pO2 100.0 mmHg (80.0-100.0) 01/27/17 09:13 HCO3 23.2 mEq/L (20.0-26.0) 01/27/17 09:13 Base Excess -2.2 mEq/L (-3.0-3.0) 01/27/17 09:13 O2 Saturation 97.0 % (92.0-100.0) 01/27/17 09:13 Luther Test PASS 01/27/17 09:13 Vent Rate 13 01/27/17 09:13 Inspired O2 30 01/27/17 09:13 Tidal Volume 500 01/27/17 09:13 PEEP 5 01/27/17 09:13 Pressure (ins/psv/peep) N/A 01/26/17 21:00 Critical Value PW 01/27/17 09:13 Sodium 148 mEq/L (136-145) H 02/05/17 04:40 Potassium 3.4 mEq/L (3.5-5.1) L 02/05/17 04:40 Chloride 121 mEq/L (98-107) H 02/05/17 04:40 Carbon Dioxide 20.0 mEq/L (21.0-31.0) L 02/05/17 04:40 Anion Gap 10.4 (7.0-16.0) 02/05/17 04:40 BUN 58 mg/dL (7-25) H 02/05/17 04:40 Creatinine 2.6 mg/dL (0.6-1.2) H 02/05/17 04:40 Est GFR ( Amer) 23.5 ml/min (>90) 02/05/17 04:40 Est GFR (Non-Af Amer) 19.4 ml/min 02/05/17 04:40 BUN/Creatinine Ratio 22.3 02/05/17 04:40 Glucose 122 mg/dL (70-105) H 02/05/17 04:40 POC Glucose 95 MG/DL (70 - 105) 02/05/17 16:10 Hemoglobin A1c % 6.0 % (4.0-6.0) 01/25/17 01:48 Whole Bld Lactic Acid 1.68 mmol/L (0.60-1.99) 02/03/17 04:53 Uric Acid 4.4 mg/dL (2.3-6.6) 02/02/17 04:19 Calcium 7.9 mg/dL (8.6-10.3) L 02/05/17 04:40 Phosphorus 4.2 mg/dL (2.5-5.0) 02/05/17 04:40 Magnesium 2.0 mg/dL (1.9-2.7) 02/05/17 04:40 Total Bilirubin 0.3 mg/dL (0.3-1.0) 02/05/17 04:40 AST 25 U/L (13-39) 02/05/17 04:40 ALT 13 U/L (7-52) 02/05/17 04:40 Alkaline Phosphatase 88 U/L (34-104) 02/05/17 04:40 Troponin I < 0.01 ng/mL (0.01-0.05) L 01/25/17 01:48 Total Protein 4.6 gm/dL (6.0-8.3) L 02/05/17 04:40 Albumin 1.9 gm/dL (3.7-5.3) L 02/05/17 04:40 Globulin 2.7 gm/dL 02/05/17 04:40 Albumin/Globulin Ratio 0.7 (1.0-1.8) L 02/05/17 04:40 Triglycerides 98 mg/dL (<150) 01/25/17 01:48 Cholesterol 146 mg/dL (<200) 01/25/17 01:48 LDL Cholesterol Direct 37 mg/dL (75-193) L 01/25/17 01:48 HDL Cholesterol 83 mg/dL (23-92) 01/25/17 01:48 TSH 1.45 uIU/ml (0.34-5.60) 01/25/17 01:48 Urine Source RANDOM 02/02/17 06:00 Urine Color BROWN 02/02/17 06:00 Urine Clarity SL. CLOUDY (CLEAR) 02/02/17 06:00 Urine pH 6.0 02/02/17 06:00 Ur Specific [place] 1.025 (1.005-1.030) 02/02/17 06:00 Urine Protein >300 mg/dL (NEGATIVE) H 02/02/17 06:00 Urine Glucose (UA) NEGATIVE mg/dL (NEGATIVE) 02/02/17 06:00 Urine Ketones NEGATIVE mg/dL (NEGATIVE) 02/02/17 06:00 Urine Blood LARGE (NEGATIVE) H 02/02/17 06:00 Urine Nitrate NEGATIVE (NEGATIVE) 02/02/17 06:00 Urine Bilirubin SMALL (NEGATIVE) H 02/02/17 06:00 Urine Urobilinogen 0.2 E.U./dL (0.2 - 1.0) 02/02/17 06:00 Ur Leukocyte Esterase NEGATIVE (NEGATIVE) 02/02/17 06:00 Urine RBC 50-100 /hpf (0-5) H 02/02/17 06:00 Urine WBC 6-10 /hpf (0-5) H 02/02/17 06:00 Ur Epithelial Cells MODERATE /lpf (FEW) 02/02/17 06:00 Amorphous Sediment MANY URATES (NONE SEEN) 02/02/17 06:00 Urine Bacteria MODERATE /hpf (NONE SEEN) 02/02/17 06:00 Ur Random Sodium 59 mmol/L 02/02/17 06:00 Urine Creatinine 129.0 mg/dl (28.0-217.0) 02/02/17 06:00 Vancomycin Trough 6.1 ug/mL (10-20) L 01/29/17 23:03 Random Vancomycin 19.0 ug/mL (5.0-40.0) 02/04/17 04:39 Salicylates < 25.0 mg/L (30.0-100.0) L 01/25/17 01:48 Urine Opiates Screen POSITIVE (NEGATIVE) H 01/25/17 03:00 Acetaminophen < 10.0 ug/mL (10.0-30.0) L 01/25/17 01:48 Ur Barbiturates Screen NEGATIVE (NEGATIVE) 01/25/17 03:00 Ur Phencyclidine Scrn NEGATIVE (NEGATIVE) 01/25/17 03:00 Amphetamines Screen POSITIVE (NEGATIVE) H 01/25/17 03:00 U Methamphetamines Scrn POSITIVE (NEGATIVE) H 01/25/17 03:00 U Benzodiazepines Scrn NEGATIVE (NEGATIVE) 01/25/17 03:00 U Cocaine Metab Screen NEGATIVE (NEGATIVE) 01/25/17 03:00 U Cannabinoids Screen NEGATIVE (NEGATIVE) 01/25/17 03:00 Ethyl Alcohol < 10 mg/dL (0-10) 01/25/17 01:48 RPR NONREACTIVE (NONREACTIVE) 01/25/17 01:48 HIV 1&2 Antibody Screen NEGATIVE (NEG) 01/26/17 05:02 - Physical Exam Vitals and I&O: Vital Signs Temp 99.1 F 02/05/17 16:00 Pulse 121 02/05/17 19:20 Resp 21 02/05/17 19:20 BP 156/84 02/05/17 18:00 Pulse Ox 96 02/05/17 20:00 Intake & Output 02/05/17 02/05/17 02/06/17 06:59 18:59 06:59 Intake Total 1100 555 Output Total 1760 Balance -660 555 Intake: Intake, IV Amount 1100 555 Meropenem 500 mg In 100 200 Sodium Chloride 0.9% 100 ml @ 100 mls/hr IV Q8H [facility] Rx#:[id number] Potassium Chloride 10 meq 105 In Sodium Chloride 0.9% 100 ml @ 105 mls/hr IV X1 ONE Rx#:[id number] Sodium Chloride 0.9% 1, 1000 000 ml @ 100 mls/hr IV . Q10H [facility] Rx#:[id number] Vancomycin HCl 0.75 gm In 250 Sodium Chloride 0.9% 250 ml @ 165 mls/hr IV ONCE [facility] Rx#:[id number] Output: Drainage 60 Left Lower Abdomen 10 Right Lower Abdomen 50 Urine 1700 Active Medications: Current Medications Clonidine HCl (Catapres) 0.1 mg PO Q4H PRN PRN Reason: sbp >160 and diastolic >100 Stop: 03/31/17 16:11 Last Admin: 01/31/17 17:06 Dose: 0.1 mg Diltiazem HCl (Cardizem) 20 mg IVP Q4HR PRN PRN Reason: HR>120 Stop: 04/02/17 08:57 Last Admin: 02/03/17 21:57 Dose: 20 mg Enalaprilat (Vasotec) 2.5 mg IVP Q4HR PRN PRN Reason: systolic BP >160 Stop: 04/02/17 11:33 Hydromorphone HCl (Dilaudid) 1 mg IVP Q3H PRN PRN Reason: MODERATE PAIN Stop: 03/26/17 17:55 Last Admin: 02/03/17 16:10 Dose: 1 mg Hydromorphone HCl (Dilaudid) 2 mg IVP Q3H PRN PRN Reason: SEVERE PAIN Stop: 03/26/17 17:56 Last Admin: 02/05/17 09:36 Dose: 2 mg Meropenem 500 mg/ Sodium (Chloride) 100 mls @ 100 mls/hr IV Q8H [facility] Stop: 04/04/17 07:44 Last Infusion: 02/05/17 18:19 Dose: Infused Fluconazole (Diflucan) 200 mg in 100 mls @ 100 mls/hr IV Q24HR [facility] Stop: 04/07/17 04:59 Dextrose/Sodium Chloride (D5-0.45ns) 1,000 mls @ 100 mls/hr IV .Q10H [facility] Stop: 04/06/17 18:00 Last Admin: 02/05/17 18:33 Dose: 100 mls/hr Insulin Aspart (Novolog) 0 units SUBQ Q6HR [facility] PRN Reason: Protocol Stop: 03/28/17 08:59 Last Admin: 02/05/17 17:10 Dose: Not Given Lactobacillus Rhamnosus (Culturelle) 1 each PO DAILY [facility] Stop: 03/29/17 08:59 Last Admin: 02/05/17 09:35 Dose: 1 each Lorazepam (Ativan) 1 mg IVP Q4HR PRN; Protocol PRN Reason: Anxiety Stop: 04/05/17 09:56 Last Admin: 02/05/17 18:30 Dose: 1 mg Metoclopramide HCl (Reglan) 10 mg IVP Q8HR PRN PRN Reason: ileus Stop: 04/05/17 15:01 Last Admin: 02/04/17 16:32 Dose: 10 mg Miscellaneous (Probiotic Screen) 1 [facility] PRN PRN PRN Reason: PROTOCOL Stop: 03/28/17 13:21 Miscellaneous (Vancomycin Iv Per Pharmacy) 1 [facility] PRN ANISH Stop: 04/04/17 05:14 Ondansetron HCl (Zofran) 4 mg IV UD PRN PRN Reason: Nausea / Vomiting Stop: 04/03/17 18:25 Pantoprazole Sodium (Protonix) 40 mg IVP BID ANISH Stop: 04/01/17 16:59 Last Admin: 02/05/17 17:11 Dose: 40 mg General: no acute distress, well developed, well nourished HEENT: atraumatic, normocephalic, PERRLA, EOMI, moist mucous membrane Neck: supple Cardiovascular: S1S2, regular Lungs: clear to auscultation bilaterally, clear to percussion Abdomen: soft, other (SANCHEZ drain x2.), no tender, no distended Extremities: no cyanosis, no clubbing, no edema Neurological: awake, alert, oriented - Procedures Procedures: Procedures Procedure Code Date BYPASS STOMACH TO JEJUNUM, OPEN APPROACH [id number] 01/25/17 FUSION OF STOMACH AND BOWEL [id number] 01/25/17 INSPECTION OF GASTROINTESTINAL TRACT, OPEN APPROACH [id number] 01/25/17 REMOVAL OF GALLBLADDER 05127 01/25/17 REOPENING OF ABDOMEN 54571 01/25/17 REPAIR STOMACH, OPEN APPROACH [id number] 01/25/17 RESECTION OF GALLBLADDER, OPEN APPROACH [id number] 01/25/17 RESPIRATORY VENTILATION, LESS THAN 24 CONSECUTIVE HOURS [id number] 01/25/17 STOMACH SURGERY PROCEDURE 05525 01/25/17 VENT MGMT INPAT INIT DAY 62715 01/25/17 Infectious Disease Assmt/Plan - Problem List Patient Problems: All Active Problems H/O diabetes mellitus (Acute) Z86.39 H/O drug abuse (Acute) Z87.898 H/O: HTN (hypertension) (Acute) Z86.79 POSTCHOLECYSTECTOMY (Acute) UTI (urinary tract infection) (Acute) closeure og gastric perf (Acute) cplacement of new gj (Acute) h/o dementia (Acute) lysisi of adhesions (Acute) r/o sepsis (Acute) s/p surgery (Acute) septic shock (Acute) tachycardia (Acute) - Assessment Assessment: 1. Peritonitis. 2. Gastric bypass perforation. 3. S/p exploratory lap X2 and repair anastomotic leak/ perforation and for intra abdominal abscess. 4. UTI. 5. Leukocytosis worse with candidemia. 6. malposition of central line. 7. Intra abdominal abscess. 8. MELECIO improving. - Plan Plan: Continue vanco iv, meropenem and diflucan. Nutritional Asmnt/Malnutr-PDOC - Dietary Evaluation Malnutrition Findings (Please click <Entered> for more info): Nutritional Asmnt/Malnutrition Start: 01/26/17 14: 32 Text: Status: Complete Freq: Document 01/26/17 14:32 GSUN (Rec: 01/26/17 14:51 GSUN [id number]) Nutritional Asmnt/Malnutrition Patient General Information Nutritional Screening Consult Diagnosis UTI, leukocytosis maybe reactive versus sepsis Pertinent Medical Hx/Surgical Hx HTN, DM, drug abuse, dementia Subjective Information 71 year old female, homeless. RD consult for BG >180. Pt was NPO at time of visit for CT abdomen/pelvis scan. Pt was agitated and in pain during visit. Pt refused to answer RD questions, repeatedly asked about bowel prep processes, then yelled at RD to leave. Pertinent Medications Dilaudid, Zofran Pertinent Labs 01/25: A1c 6, glucose 319H Nutritional Hx/Data Height 1.73 m Height (Calculated Centimeters) 172.7 Current Weight (lbs) 69.899 kg Weight (Calculated Kilograms) 69.9 Weight (Calculated Grams) 74728.6 [place] Body Weight 140lb Weight Status Approriate GI Symptoms Cultural/Ethnic/Mu-Ism Belief Unknown. Usual diet at home Unknown. Estimated Nutritional Goals BEE in Kcals: Using Current wt Calories/Kcals/Kg CBW 70kg Kcals Calculated 1750-2100kcal (25-30kcal/kg, ? possible sepsis) Protein: Using Current wt Protein Calculated 70g (1g/kg) Fluid: ml 1750-2100ml (1ml/kcal) Nutritional Problem 1. Problem Problem Altered nutrition related laboratory values related to Etiology DM aeb Signs/Symptoms: H&P, glucose 319H on adm Intervention/Recommendation Comments 1. NPO at time of visit. Diet advancement per MD, recommend [id number] to promtoe glycemic control. 2. Provide edu on DM as needed . Expected Outcomes/Goals Expected Outcomes/Goals 1. [place] to meet 100% of estimated nutritional needs.
[2017-02-06] MEDS: Meropenem 500 MG in Sodium Chloride 0.9% 100 ML IV SCH ×3 (00:13→17:29)
--- NOTE | 2017-02-06 01:26 | Progress Notes ---
SUBJECTIVE: The patient was seen in his bed in ICU , but it was explained to the patient that she is currently on strict [id number]-vmoat diet. Denies any abdominal pain. Latest lab work for today; WBC is trending down. Potassium level is 3.4. OBJECTIVE: HEENT: Head is atraumatic and normocephalic. Eyes: Bilateral conjunctivae are clear from injections. NECK: Supple. No JVD. CARDIOVASCULAR: S1 and S2 heard, sinus tachycardia on the monitor. GASTROINTESTINAL: Soft and nontender. Bilateral SANCHEZ drain intact. Hypoactive bowel sounds. MUSCULOSKELETAL: No edema. No clubbing noted. ASSESSMENT: 1. Sepsis. 2. Perforated viscus. 3. Status post exploratory laparotomy. 4. Hypertension. 5. Diabetes. PLAN: We will keep the patient in ICU. We will monitor her white count. We will follow up with the ID doctor for antibiotic management. We will replace potassium for today with 10 mEq of K-rider. JOB# [id number]
[2017-02-06] MEDS: Fluconazole 200 mg/100 mL Premix Bag IV SCH (05:08)
[2017-02-06 05:09] LABS: MEAN CELL VOLUME 97.4 fl (81-100); MEAN CORPUSCULAR HEMOGLOBIN 33.6 pg (27.0-31.0); MEAN CORPUSCULAR HGB CONC 34.5 pg (28.0-36.0); MEAN PLATELET VOLUME 8.1 fl; PLATELET COUNT 340 Th/cmm (150-400); RED BLOOD COUNT 2.98 Mil/cmm (3.80-5.20); RED CELL DISTRIBUTION WIDTH 13.4 % (11.5-20.0)
[2017-02-06 05:12] LABS: WHITE BLOOD COUNT 24.3 Th/cmm (4.8-10.8)
[2017-02-06 05:21] LABS: ALB/GLOB RATIO 0.8 (1.0-1.8); ANION GAP 9.5 (7.0-16.0); BILIRUBIN,TOTAL 0.3 mg/dL (0.3-1.0); CALCIUM SERUM 7.9 mg/dL (8.6-10.3); MAGNESIUM 1.9 mg/dL (1.9-2.7); PHOSPHOROUS 3.2 mg/dL (2.5-5.0); POTASSIUM SERUM 3.5 mEq/L (3.5-5.1)
[2017-02-06 05:41] LABS: TOTAL CELLS COUNTED 100
[2017-02-06 05:42] LABS: BAND NEUTROPHILE 4 % (0-10); EOSINOPHIL 2 % (0-5); NEUTROPHILS 81 % (40-80); PLATELET ESTIMATE ADEQUATE (NORMAL)
[2017-02-06] MEDS: INSULIN ASPART, RECOMBINANT 100 UNITS/ML SUBQ SCH ×4 (06:32→17:43)
[2017-02-06] MEDS: Lactobacillus Rhamnosus 10 Billion CFU Capsule PO SCH (09:04)
[2017-02-06] MEDS ORDERED: Fleet Enema 135 mL RC PRN (09:55)
--- NOTE | 2017-02-06 09:57 | General Progress Note ---
Subjective - Review of Systems Service Date: 02/06/17 Events since last encounter: remains very confused still leukocytosis SANCHEZ drainage serous no BM - enema ordered Objective - Results Result Diagrams: 02/06/17 04:31 02/06/17 04:31 Recent Labs: Laboratory Last Values WBC 24.3 Th/cmm (4.8-10.8) H* 02/06/17 04:31 RBC 2.98 Mil/cmm (3.80-5.20) L 02/06/17 04:31 Hgb 10.0 gm/dL (11.7-16.1) L 02/06/17 04:31 Hct 29.0 % (35.0-45.0) L 02/06/17 04:31 MCV 97.4 fl (81-100) 02/06/17 04:31 MCH 33.6 pg (27.0-31.0) H 02/06/17 04:31 MCHC Differential 34.5 pg (28.0-36.0) 02/06/17 04:31 RDW 13.4 % (11.5-20.0) 02/06/17 04:31 Plt Count 340 Th/cmm (150-400) 02/06/17 04:31 MPV 8.1 fl 02/06/17 04:31 Neutrophils % FORMULA CLERK 02/04/17 04:39 Band Neutrophils % 4 % (0-10) 02/06/17 04:31 Lymphocytes % FORMULA CLERK 02/04/17 04:39 Monocytes % FORMULA CLERK 02/01/17 15:55 Eosinophils % FORMULA CLERK 02/04/17 04:39 Basophils % FORMULA CLERK 02/01/17 15:55 Neutrophils (Manual) 81 % (40-80) H 02/06/17 04:31 Lymphocytes 5 % (20-50) L 02/06/17 04:31 Monocytes 8 % (2-10) 02/06/17 04:31 Eosinophils 2 % (0-5) 02/06/17 04:31 Basophils 1 % (0-3) 02/02/17 04:19 Metamyelocytes 2 % (0-0) H 02/02/17 04:19 Myelocytes 2 % 01/31/17 05:40 Hypochromia 1+ 02/05/17 04:40 Platelet Estimate ADEQUATE (NORMAL) 02/06/17 04:31 Platelet Morphology NORMAL (NORMAL) 02/04/17 04:39 Polychromasia 1+ 02/05/17 04:40 Anisocytosis 1+ 02/03/17 04:53 RBC Morph Micro Appear NORMAL (NORMAL) 02/04/17 04:39 Smear Path Review SEE BELOW 02/03/17 04:53 Eos Smear Source URINE 02/02/17 06:00 Eos Smear Total Cells NONE SEEN (NONE SEEN) 02/02/17 06:00 PT 9.9 SECONDS (9.5-11.5) 01/25/17 01:48 INR 0.95 (0.5-1.4) 01/25/17 01:48 Specimen Source Arterial 01/27/17 09:13 Sample Site Right Radial 01/27/17 09:13 pH 7.36 (7.35-7.45) 01/27/17 09:13 pCO2 41.0 mmHg (35.0-45.0) 01/27/17 09:13 pO2 100.0 mmHg (80.0-100.0) 01/27/17 09:13 HCO3 23.2 mEq/L (20.0-26.0) 01/27/17 09:13 Base Excess -2.2 mEq/L (-3.0-3.0) 01/27/17 09:13 O2 Saturation 97.0 % (92.0-100.0) 01/27/17 09:13 Luther Test PASS 01/27/17 09:13 Vent Rate 13 01/27/17 09:13 Inspired O2 30 01/27/17 09:13 Tidal Volume 500 01/27/17 09:13 PEEP 5 01/27/17 09:13 Pressure (ins/psv/peep) N/A 01/26/17 21:00 Critical Value PW 01/27/17 09:13 Sodium 154 mEq/L (136-145) H 02/06/17 04:31 Potassium 3.5 mEq/L (3.5-5.1) 02/06/17 04:31 Chloride 126 mEq/L (98-107) H 02/06/17 04:31 Carbon Dioxide 22.0 mEq/L (21.0-31.0) 02/06/17 04:31 Anion Gap 9.5 (7.0-16.0) 02/06/17 04:31 BUN 48 mg/dL (7-25) H 02/06/17 04:31 Creatinine 2.0 mg/dL (0.6-1.2) H 02/06/17 04:31 Est GFR ( Amer) 31.8 ml/min (>90) 02/06/17 04:31 Est GFR (Non-Af Amer) 26.3 ml/min 02/06/17 04:31 BUN/Creatinine Ratio 24.0 02/06/17 04:31 Glucose 189 mg/dL (70-105) H 02/06/17 04:31 POC Glucose 172 MG/DL (70 - 105) H 02/06/17 06:28 Hemoglobin A1c % 6.0 % (4.0-6.0) 01/25/17 01:48 Whole Bld Lactic Acid 1.68 mmol/L (0.60-1.99) 02/03/17 04:53 Uric Acid 4.4 mg/dL (2.3-6.6) 02/02/17 04:19 Calcium 7.9 mg/dL (8.6-10.3) L 02/06/17 04:31 Phosphorus 3.2 mg/dL (2.5-5.0) 02/06/17 04:31 Magnesium 1.9 mg/dL (1.9-2.7) 02/06/17 04:31 Total Bilirubin 0.3 mg/dL (0.3-1.0) 02/06/17 04:31 AST 26 U/L (13-39) 02/06/17 04:31 ALT 17 U/L (7-52) 02/06/17 04:31 Alkaline Phosphatase 70 U/L (34-104) 02/06/17 04:31 Troponin I < 0.01 ng/mL (0.01-0.05) L 01/25/17 01:48 Total Protein 4.6 gm/dL (6.0-8.3) L 02/06/17 04:31 Albumin 2.0 gm/dL (3.7-5.3) L 02/06/17 04:31 Globulin 2.6 gm/dL 02/06/17 04:31 Albumin/Globulin Ratio 0.8 (1.0-1.8) L 02/06/17 04:31 Triglycerides 98 mg/dL (<150) 01/25/17 01:48 Cholesterol 146 mg/dL (<200) 01/25/17 01:48 LDL Cholesterol Direct 37 mg/dL (75-193) L 01/25/17 01:48 HDL Cholesterol 83 mg/dL (23-92) 01/25/17 01:48 TSH 1.45 uIU/ml (0.34-5.60) 01/25/17 01:48 Urine Source RANDOM 02/02/17 06:00 Urine Color BROWN 02/02/17 06:00 Urine Clarity SL. CLOUDY (CLEAR) 02/02/17 06:00 Urine pH 6.0 02/02/17 06:00 Ur Specific [place] 1.025 (1.005-1.030) 02/02/17 06:00 Urine Protein >300 mg/dL (NEGATIVE) H 02/02/17 06:00 Urine Glucose (UA) NEGATIVE mg/dL (NEGATIVE) 02/02/17 06:00 Urine Ketones NEGATIVE mg/dL (NEGATIVE) 02/02/17 06:00 Urine Blood LARGE (NEGATIVE) H 02/02/17 06:00 Urine Nitrate NEGATIVE (NEGATIVE) 02/02/17 06:00 Urine Bilirubin SMALL (NEGATIVE) H 02/02/17 06:00 Urine Urobilinogen 0.2 E.U./dL (0.2 - 1.0) 02/02/17 06:00 Ur Leukocyte Esterase NEGATIVE (NEGATIVE) 02/02/17 06:00 Urine RBC 50-100 /hpf (0-5) H 02/02/17 06:00 Urine WBC 6-10 /hpf (0-5) H 02/02/17 06:00 Ur Epithelial Cells MODERATE /lpf (FEW) 02/02/17 06:00 Amorphous Sediment MANY URATES (NONE SEEN) 02/02/17 06:00 Urine Bacteria MODERATE /hpf (NONE SEEN) 02/02/17 06:00 Ur Random Sodium 59 mmol/L 02/02/17 06:00 Urine Creatinine 129.0 mg/dl (28.0-217.0) 02/02/17 06:00 Vancomycin Trough 6.1 ug/mL (10-20) L 01/29/17 23:03 Random Vancomycin 19.0 ug/mL (5.0-40.0) 02/04/17 04:39 Salicylates < 25.0 mg/L (30.0-100.0) L 01/25/17 01:48 Urine Opiates Screen POSITIVE (NEGATIVE) H 01/25/17 03:00 Acetaminophen < 10.0 ug/mL (10.0-30.0) L 01/25/17 01:48 Ur Barbiturates Screen NEGATIVE (NEGATIVE) 01/25/17 03:00 Ur Phencyclidine Scrn NEGATIVE (NEGATIVE) 01/25/17 03:00 Amphetamines Screen POSITIVE (NEGATIVE) H 01/25/17 03:00 U Methamphetamines Scrn POSITIVE (NEGATIVE) H 01/25/17 03:00 U Benzodiazepines Scrn NEGATIVE (NEGATIVE) 01/25/17 03:00 U Cocaine Metab Screen NEGATIVE (NEGATIVE) 01/25/17 03:00 U Cannabinoids Screen NEGATIVE (NEGATIVE) 01/25/17 03:00 Ethyl Alcohol < 10 mg/dL (0-10) 01/25/17 01:48 RPR NONREACTIVE (NONREACTIVE) 01/25/17 01:48 HIV 1&2 Antibody Screen NEGATIVE (NEG) 01/26/17 05:02 - Physical Exam Vitals and I&O: Vital Signs Temp 99 F 02/06/17 04:00 Pulse 117 02/06/17 09:24 Resp 24 02/06/17 09:24 BP 169/90 02/06/17 06:00 Pulse Ox 99 02/06/17 09:24 Intake & Output 02/05/17 02/06/17 02/06/17 18:59 06:59 18:59 Intake Total 555 100 Output Total 1945 Balance 555 -1849 Intake: Intake, IV Amount 555 100 Meropenem 500 mg In 200 100 Sodium Chloride 0.9% 100 ml @ 100 mls/hr IV Q8H [facility] Rx#:[id number] Potassium Chloride 10 meq 105 In Sodium Chloride 0.9% 100 ml @ 105 mls/hr IV X1 ONE Rx#:[id number] Vancomycin HCl 0.75 gm In 250 Sodium Chloride 0.9% 250 ml @ 165 mls/hr IV ONCE ONE Rx#:[id number] Output: Drainage 195 Left Lower Abdomen 15 Right Lower Abdomen 180 Urine 1750 Active Medications: Current Medications Clonidine HCl (Catapres) 0.1 mg PO Q4H PRN PRN Reason: sbp >160 and diastolic >100 Stop: 03/31/17 16:11 Last Admin: 01/31/17 17:06 Dose: 0.1 mg Diltiazem HCl (Cardizem) 20 mg IVP Q4HR PRN PRN Reason: HR>120 Stop: 04/02/17 08:57 Last Admin: 02/03/17 21:57 Dose: 20 mg Enalaprilat (Vasotec) 2.5 mg IVP Q4HR PRN PRN Reason: systolic BP >160 Stop: 04/02/17 11:33 Hydromorphone HCl (Dilaudid) 1 mg IVP Q3H PRN PRN Reason: MODERATE PAIN Stop: 03/26/17 17:55 Last Admin: 02/03/17 16:10 Dose: 1 mg Hydromorphone HCl (Dilaudid) 2 mg IVP Q3H PRN PRN Reason: SEVERE PAIN Stop: 03/26/17 17:56 Last Admin: 02/05/17 09:36 Dose: 2 mg Meropenem 500 mg/ Sodium (Chloride) 100 mls @ 100 mls/hr IV Q8H [facility] Stop: 04/04/17 07:44 Last Admin: 02/06/17 09:03 Dose: 100 mls/hr Fluconazole (Diflucan) 200 mg in 100 mls @ 100 mls/hr IV Q24HR [facility] Stop: 04/07/17 04:59 Last Admin: 02/06/17 05:08 Dose: 100 mls/hr Dextrose/Sodium Chloride (D5-0.45ns) 1,000 mls @ 100 mls/hr IV .Q10H [facility] Stop: 04/06/17 18:00 Last Admin: 02/05/17 18:33 Dose: 100 mls/hr Insulin Aspart (Novolog) 0 units SUBQ Q6HR ANISH PRN Reason: Protocol Stop: 03/28/17 08:59 Last Admin: 02/06/17 06:32 Dose: 2 units Lactobacillus Rhamnosus (Culturelle) 1 each PO DAILY ANISH Stop: 03/29/17 08:59 Last Admin: 02/06/17 09:04 Dose: 1 each Lorazepam (Ativan) 1 mg IVP Q4HR PRN; Protocol PRN Reason: Anxiety Stop: 04/05/17 09:56 Last Admin: 02/06/17 02:30 Dose: 1 mg Metoclopramide HCl (Reglan) 10 mg IVP Q8HR PRN PRN Reason: ileus Stop: 04/05/17 15:01 Last Admin: 02/04/17 16:32 Dose: 10 mg Miscellaneous (Probiotic Screen) 1 ea PRN PRN PRN Reason: PROTOCOL Stop: 03/28/17 13:21 Miscellaneous (Vancomycin Iv Per Pharmacy) 1 ea PRN ANISH Stop: 04/04/17 05:14 Ondansetron HCl (Zofran) 4 mg IV UD PRN PRN Reason: Nausea / Vomiting Stop: 04/03/17 18:25 Pantoprazole Sodium (Protonix) 40 mg IVP BID ANISH Stop: 04/01/17 16:59 Last Admin: 02/06/17 09:04 Dose: 40 mg Sodium Phosphate (Fleet Enema) 135 ml RC PRN PRN PRN Reason: Constipation Stop: 04/07/17 09:54 - Procedures Procedures: Procedures Procedure Code Date BYPASS STOMACH TO JEJUNUM, OPEN APPROACH [id number] 01/25/17 FUSION OF STOMACH AND BOWEL 82034 01/25/17 INSPECTION OF GASTROINTESTINAL TRACT, OPEN APPROACH [id number] 01/25/17 REMOVAL OF GALLBLADDER 61452 01/25/17 REOPENING OF ABDOMEN 93473 01/25/17 REPAIR STOMACH, OPEN APPROACH [id number] 01/25/17 RESECTION OF GALLBLADDER, OPEN APPROACH [id number] 01/25/17 RESPIRATORY VENTILATION, LESS THAN 24 CONSECUTIVE HOURS [id number] 01/25/17 STOMACH SURGERY PROCEDURE 28402 01/25/17 VENT MGMT INPAT INIT DAY 24204 01/25/17 Assessment/Plan - Problem List Patient Problems: All Active Problems H/O diabetes mellitus (Acute) Z86.39 H/O drug abuse (Acute) Z87.898 H/O: HTN (hypertension) (Acute) Z86.79 POSTCHOLECYSTECTOMY (Acute) UTI (urinary tract infection) (Acute) closeure og gastric perf (Acute) cplacement of new gj (Acute) h/o dementia (Acute) lysisi of adhesions (Acute) r/o sepsis (Acute) s/p surgery (Acute) septic shock (Acute) tachycardia (Acute) Nutritional Asmnt/Malnutr-PDOC - Dietary Evaluation Malnutrition Findings (Please click <Entered> for more info): Nutritional Asmnt/Malnutrition Start: 01/26/17 14: 32 Text: Status: Complete Freq: Document 01/26/17 14:32 GSUN (Rec: 01/26/17 14:51 GSUN [id number]) Nutritional Asmnt/Malnutrition Patient General Information Nutritional Screening Consult Diagnosis UTI, leukocytosis maybe reactive versus sepsis Pertinent Medical Hx/Surgical Hx HTN, DM, drug abuse, dementia Subjective Information 71 year old female, homeless. RD consult for BG >180. Pt was NPO at time of visit for CT abdomen/pelvis scan. Pt was agitated and in pain during visit. Pt refused to answer RD questions, repeatedly asked about bowel prep processes, then yelled at RD to leave. Pertinent Medications Dilaudid, Zofran Pertinent Labs 01/25: A1c 6, glucose 319H Nutritional Hx/Data Height 1.73 m Height (Calculated Centimeters) 172.7 Current Weight (lbs) 69.899 kg Weight (Calculated Kilograms) 69.9 Weight (Calculated Grams) 92825.6 Fifty Six Body Weight 140lb Weight Status Approriate GI Symptoms Cultural/Ethnic/Zoroastrian Belief Unknown. Usual diet at home Unknown. Estimated Nutritional Goals BEE in Kcals: Using Current wt Calories/Kcals/Kg CBW 70kg Kcals Calculated 1750-2100kcal (25-30kcal/kg, ? possible sepsis) Protein: Using Current wt Protein Calculated 70g (1g/kg) Fluid: ml 1750-2100ml (1ml/kcal) Nutritional Problem 1. Problem Problem Altered nutrition related laboratory values related to Etiology DM aeb Signs/Symptoms: H&P, glucose 319H on adm Intervention/Recommendation Comments 1. NPO at time of visit. Diet advancement per MD, recommend [id number] to promtoe glycemic control. 2. Provide edu on DM as needed . Expected Outcomes/Goals Expected Outcomes/Goals 1. Po [place] to meet 100% of estimated nutritional needs.
[2017-02-06] MEDS: D5-0.45NS 1,000 ML IV SCH (13:37)
[2017-02-07] MEDS: D5-0.45NS 1,000 ML IV SCH (00:38)
[2017-02-07] MEDS: Meropenem 500 MG in Sodium Chloride 0.9% 100 ML IV SCH ×4 (00:39→23:40)
[2017-02-07] MEDS: INSULIN ASPART, RECOMBINANT 100 UNITS/ML SUBQ SCH ×5 (00:39→23:41)
[2017-02-07 05:05] LABS: HEMOGLOBIN 9.5 gm/dL (11.7-16.1); MEAN CORPUSCULAR HEMOGLOBIN 32.9 pg (27.0-31.0); MEAN CORPUSCULAR HGB CONC 33.9 pg (28.0-36.0); MEAN PLATELET VOLUME 8.5 fl; PLATELET COUNT 273 Th/cmm (150-400); RED BLOOD COUNT 2.88 Mil/cmm (3.80-5.20); RED CELL DISTRIBUTION WIDTH 13.3 % (11.5-20.0)
[2017-02-07 05:10] LABS: WHITE BLOOD COUNT 19.6 Th/cmm (4.8-10.8)
[2017-02-07 05:34] LABS: ANION GAP 8.1 (7.0-16.0); BUN/CREATININE RATIO 24.7; CALCIUM SERUM 7.8 mg/dL (8.6-10.3); CREATININE - SERUM 1.5 mg/dL (0.6-1.2); POTASSIUM SERUM 3.1 mEq/L (3.5-5.1)
[2017-02-07 05:36] LABS: VANCOMYCIN RANDOM 10.8 ug/mL (5.0-40.0)
[2017-02-07] MEDS: Fluconazole 200 mg/100 mL Premix Bag IV SCH (05:53)
[2017-02-07] MEDS: Lactobacillus Rhamnosus 10 Billion CFU Capsule PO SCH (09:00)
[2017-02-07 09:13] LABS: BAND NEUTROPHILE 7 % (0-10); EOSINOPHIL 1 % (0-5); NEUTROPHILS 79 % (40-80); PLATELET ESTIMATE ADEQUATE (NORMAL); PLATELET MORPHOLOGY PLATELET CLUMPS SEEN (NORMAL); TOTAL CELLS COUNTED 100
--- NOTE | 2017-02-07 13:30 | General Progress Note ---
Subjective - Review of Systems Service Date: 02/07/17 Subjective: sleeping, arousable, more comfortable Objective - Results Result Diagrams: 02/07/17 04:46 02/07/17 04:46 Recent Labs: Laboratory Last Values WBC 19.6 Th/cmm (4.8-10.8) H 02/07/17 04:46 RBC 2.88 Mil/cmm (3.80-5.20) L 02/07/17 04:46 Hgb 9.5 gm/dL (11.7-16.1) L 02/07/17 04:46 Hct 28.0 % (35.0-45.0) L 02/07/17 04:46 MCV 97.0 fl (81-100) 02/07/17 04:46 MCH 32.9 pg (27.0-31.0) H 02/07/17 04:46 MCHC Differential 33.9 pg (28.0-36.0) 02/07/17 04:46 RDW 13.3 % (11.5-20.0) 02/07/17 04:46 Plt Count 273 Th/cmm (150-400) 02/07/17 04:46 MPV 8.5 fl 02/07/17 04:46 Neutrophils % [employer] 02/04/17 04:39 Band Neutrophils % 7 % (0-10) 02/07/17 04:46 Lymphocytes % [employer] 02/04/17 04:39 Monocytes % [employer] 02/01/17 15:55 Eosinophils % [employer] 02/04/17 04:39 Basophils % [employer] 02/01/17 15:55 Neutrophils (Manual) 79 % (40-80) 02/07/17 04:46 Lymphocytes 6 % (20-50) L 02/07/17 04:46 Monocytes 6 % (2-10) 02/07/17 04:46 Eosinophils 1 % (0-5) 02/07/17 04:46 Basophils 1 % (0-3) 02/02/17 04:19 Metamyelocytes 2 % (0-0) H 02/02/17 04:19 Myelocytes 2 % 01/31/17 05:40 Atypical Lymphocytes 1 % 02/07/17 04:46 Hypochromia 1+ 02/05/17 04:40 Platelet Estimate ADEQUATE (NORMAL) 02/07/17 04:46 Platelet Morphology PLATELET CLUMPS SEEN (NORMAL) 02/07/17 04:46 Polychromasia 1+ 02/05/17 04:40 Anisocytosis 1+ 02/03/17 04:53 RBC Morph Micro Appear NORMAL (NORMAL) 02/07/17 04:46 Smear Path Review SEE BELOW 02/03/17 04:53 Eos Smear Source URINE 02/02/17 06:00 Eos Smear Total Cells NONE SEEN (NONE SEEN) 02/02/17 06:00 PT 9.9 SECONDS (9.5-11.5) 01/25/17 01:48 INR 0.95 (0.5-1.4) 01/25/17 01:48 Specimen Source Arterial 01/27/17 09:13 Sample Site Right Radial 01/27/17 09:13 pH 7.36 (7.35-7.45) 01/27/17 09:13 pCO2 41.0 mmHg (35.0-45.0) 01/27/17 09:13 pO2 100.0 mmHg (80.0-100.0) 01/27/17 09:13 HCO3 23.2 mEq/L (20.0-26.0) 01/27/17 09:13 Base Excess -2.2 mEq/L (-3.0-3.0) 01/27/17 09:13 O2 Saturation 97.0 % (92.0-100.0) 01/27/17 09:13 Luther Test PASS 01/27/17 09:13 Vent Rate 13 01/27/17 09:13 Inspired O2 30 01/27/17 09:13 Tidal Volume 500 01/27/17 09:13 PEEP 5 01/27/17 09:13 Pressure (ins/psv/peep) N/A 01/26/17 21:00 Critical Value PW 01/27/17 09:13 Sodium 155 mEq/L (136-145) H 02/07/17 04:46 Potassium 3.1 mEq/L (3.5-5.1) L 02/07/17 04:46 Chloride 125 mEq/L (98-107) H 02/07/17 04:46 Carbon Dioxide 25.0 mEq/L (21.0-31.0) 02/07/17 04:46 Anion Gap 8.1 (7.0-16.0) 02/07/17 04:46 BUN 37 mg/dL (7-25) H 02/07/17 04:46 Creatinine 1.5 mg/dL (0.6-1.2) H 02/07/17 04:46 Est GFR ( Amer) 44.3 ml/min (>90) 02/07/17 04:46 Est GFR (Non-Af Amer) 36.6 ml/min 02/07/17 04:46 BUN/Creatinine Ratio 24.7 02/07/17 04:46 Glucose 180 mg/dL (70-105) H 02/07/17 04:46 POC Glucose 124 MG/DL (70 - 105) H 02/07/17 12:19 Hemoglobin A1c % 6.0 % (4.0-6.0) 01/25/17 01:48 Whole Bld Lactic Acid 1.68 mmol/L (0.60-1.99) 02/03/17 04:53 Uric Acid 4.4 mg/dL (2.3-6.6) 02/02/17 04:19 Calcium 7.8 mg/dL (8.6-10.3) L 02/07/17 04:46 Phosphorus 3.2 mg/dL (2.5-5.0) 02/06/17 04:31 Magnesium 1.9 mg/dL (1.9-2.7) 02/06/17 04:31 Total Bilirubin 0.3 mg/dL (0.3-1.0) 02/06/17 04:31 AST 26 U/L (13-39) 02/06/17 04:31 ALT 17 U/L (7-52) 02/06/17 04:31 Alkaline Phosphatase 70 U/L (34-104) 02/06/17 04:31 Troponin I < 0.01 ng/mL (0.01-0.05) L 01/25/17 01:48 Total Protein 4.6 gm/dL (6.0-8.3) L 02/06/17 04:31 Albumin 2.0 gm/dL (3.7-5.3) L 02/06/17 04:31 Globulin 2.6 gm/dL 02/06/17 04:31 Albumin/Globulin Ratio 0.8 (1.0-1.8) L 02/06/17 04:31 Triglycerides 98 mg/dL (<150) 01/25/17 01:48 Cholesterol 146 mg/dL (<200) 01/25/17 01:48 LDL Cholesterol Direct 37 mg/dL (75-193) L 01/25/17 01:48 HDL Cholesterol 83 mg/dL (23-92) 01/25/17 01:48 TSH 1.45 uIU/ml (0.34-5.60) 01/25/17 01:48 Urine Source RANDOM 02/02/17 06:00 Urine Color BROWN 02/02/17 06:00 Urine Clarity SL. CLOUDY (CLEAR) 02/02/17 06:00 Urine pH 6.0 02/02/17 06:00 Ur Specific [place] 1.025 (1.005-1.030) 02/02/17 06:00 Urine Protein >300 mg/dL (NEGATIVE) H 02/02/17 06:00 Urine Glucose (UA) NEGATIVE mg/dL (NEGATIVE) 02/02/17 06:00 Urine Ketones NEGATIVE mg/dL (NEGATIVE) 02/02/17 06:00 Urine Blood LARGE (NEGATIVE) H 02/02/17 06:00 Urine Nitrate NEGATIVE (NEGATIVE) 02/02/17 06:00 Urine Bilirubin SMALL (NEGATIVE) H 02/02/17 06:00 Urine Urobilinogen 0.2 E.U./dL (0.2 - 1.0) 02/02/17 06:00 Ur Leukocyte Esterase NEGATIVE (NEGATIVE) 02/02/17 06:00 Urine RBC 50-100 /hpf (0-5) H 02/02/17 06:00 Urine WBC 6-10 /hpf (0-5) H 02/02/17 06:00 Ur Epithelial Cells MODERATE /lpf (FEW) 02/02/17 06:00 Amorphous Sediment MANY URATES (NONE SEEN) 02/02/17 06:00 Urine Bacteria MODERATE /hpf (NONE SEEN) 02/02/17 06:00 Ur Random Sodium 59 mmol/L 02/02/17 06:00 Urine Creatinine 129.0 mg/dl (28.0-217.0) 02/02/17 06:00 Vancomycin Trough 6.1 ug/mL (10-20) L 01/29/17 23:03 Random Vancomycin 10.8 ug/mL (5.0-40.0) 02/07/17 04:46 Salicylates < 25.0 mg/L (30.0-100.0) L 01/25/17 01:48 Urine Opiates Screen POSITIVE (NEGATIVE) H 01/25/17 03:00 Acetaminophen < 10.0 ug/mL (10.0-30.0) L 01/25/17 01:48 Ur Barbiturates Screen NEGATIVE (NEGATIVE) 01/25/17 03:00 Ur Phencyclidine Scrn NEGATIVE (NEGATIVE) 01/25/17 03:00 Amphetamines Screen POSITIVE (NEGATIVE) H 01/25/17 03:00 U Methamphetamines Scrn POSITIVE (NEGATIVE) H 01/25/17 03:00 U Benzodiazepines Scrn NEGATIVE (NEGATIVE) 01/25/17 03:00 U Cocaine Metab Screen NEGATIVE (NEGATIVE) 01/25/17 03:00 U Cannabinoids Screen NEGATIVE (NEGATIVE) 01/25/17 03:00 Ethyl Alcohol < 10 mg/dL (0-10) 01/25/17 01:48 RPR NONREACTIVE (NONREACTIVE) 01/25/17 01:48 HIV 1&2 Antibody Screen NEGATIVE (NEG) 01/26/17 05:02 - Physical Exam Vitals and I&O: Vital Signs Temp 98.7 F 02/07/17 08:00 Pulse 121 02/07/17 10:00 Resp 25 02/07/17 10:00 BP 166/76 02/07/17 10:00 Pulse Ox 99 02/07/17 10:00 Intake & Output 02/06/17 02/07/17 02/07/17 18:59 06:59 18:59 Intake Total 200 1200 350 Output Total 1250 1230 Balance -1050 -30 350 Intake: Intake, IV Amount 200 1200 350 D5-0.45NS 1,000 ml @ 100 1000 mls/hr IV .Q10H [facility] Rx#: [id number] Fluconazole 200mg/100mL 100 200 mg In 100 ml @ 100 mls/hr IV Q24HR [facility] Rx#: [id number] Meropenem 500 mg In 200 100 100 Sodium Chloride 0.9% 100 ml @ 100 mls/hr IV Q8H [facility] Rx#:[id number] Vancomycin HCl 1.25 gm In 250 Sodium Chloride 0.9% 250 ml @ 165 mls/hr IV ONCE ONE Rx#:[id number] Oral 0 Output: Drainage 250 230 Left Lower Abdomen 50 10 Right Lower Abdomen 200 220 Urine 1000 1000 Active Medications: Current Medications Clonidine HCl (Catapres) 0.1 mg PO Q4H PRN PRN Reason: sbp >160 and diastolic >100 Stop: 03/31/17 16:11 Last Admin: 01/31/17 17:06 Dose: 0.1 mg Diltiazem HCl (Cardizem) 20 mg IVP Q4HR PRN PRN Reason: HR>120 Stop: 04/02/17 08:57 Last Admin: 02/03/17 21:57 Dose: 20 mg Enalaprilat (Vasotec) 2.5 mg IVP Q4HR PRN PRN Reason: systolic BP >160 Stop: 04/02/17 11:33 Hydromorphone HCl (Dilaudid) 1 mg IVP Q3H PRN PRN Reason: MODERATE PAIN Stop: 03/26/17 17:55 Last Admin: 02/03/17 16:10 Dose: 1 mg Hydromorphone HCl (Dilaudid) 2 mg IVP Q3H PRN PRN Reason: SEVERE PAIN Stop: 03/26/17 17:56 Last Admin: 02/05/17 09:36 Dose: 2 mg Meropenem 500 mg/ Sodium (Chloride) 100 mls @ 100 mls/hr IV Q8H [facility] Stop: 04/04/17 07:44 Last Infusion: 02/07/17 09:00 Dose: Infused Fluconazole (Diflucan) 200 mg in 100 mls @ 100 mls/hr IV Q24HR [facility] Stop: 04/07/17 04:59 Last Infusion: 02/07/17 06:53 Dose: Infused Dextrose/Sodium Chloride (D5-0.45ns) 1,000 mls @ 100 mls/hr IV .Q10H [facility] Stop: 04/06/17 18:00 Last Admin: 02/07/17 00:38 Dose: 100 mls/hr Vancomycin HCl 1.25 gm/ Sodium (Chloride) 250 mls @ 165 mls/hr IV Q24H [facility] Stop: 04/09/17 10:59 Potassium Chloride 40 meq/Lidocaine HCl 25 mg/ Sodium Chloride 272.5 mls @ 68 mls/hr IV X1 ONE Stop: 02/07/17 18:00 Insulin Aspart (Novolog) 0 units SUBQ Q6HR [facility] PRN Reason: Protocol Stop: 03/28/17 08:59 Last Admin: 02/07/17 12:19 Dose: Not Given Lactobacillus Rhamnosus (Culturelle) 1 each PO DAILY [facility] Stop: 03/29/17 08:59 Last Admin: 02/07/17 09:00 Dose: Not Given Lorazepam (Ativan) 1 mg IVP Q4HR PRN; Protocol PRN Reason: Anxiety Stop: 04/05/17 09:56 Last Admin: 02/06/17 18:18 Dose: 1 mg Metoclopramide HCl (Reglan) 10 mg IVP Q8HR PRN PRN Reason: ileus Stop: 04/05/17 15:01 Last Admin: 02/04/17 16:32 Dose: 10 mg Miscellaneous (Probiotic Screen) 1 ea PRN PRN PRN Reason: PROTOCOL Stop: 03/28/17 13:21 Miscellaneous (Vancomycin Iv Per Pharmacy) 1 ea PRN [facility] Stop: 04/04/17 05:14 Ondansetron HCl (Zofran) 4 mg IV UD PRN PRN Reason: Nausea / Vomiting Stop: 04/03/17 18:25 Pantoprazole Sodium (Protonix) 40 mg IVP BID [facility] Stop: 04/01/17 16:59 Last Admin: 02/07/17 09:30 Dose: 40 mg Sodium Phosphate (Fleet Enema) 135 ml RC PRN PRN PRN Reason: Constipation Stop: 04/07/17 09:54 General: No acute distress HEENT: Atraumatic, Mucous membr. moist/pink Neck: Supple, +2 carotid pulse wo bruit Cardiovascular: Regular rate, Normal S1, Normal S2 Lungs: Clear to auscultation Abdomen: Bowel sounds, Soft Extremities: no Edema Neurological: Sensation intact Skin: no Rash Psych/Mental Status: Mood NL - Procedures Procedures: Procedures Procedure Code Date BYPASS STOMACH TO JEJUNUM, OPEN APPROACH [id number] 01/25/17 FUSION OF STOMACH AND BOWEL 45418 01/25/17 INSPECTION OF GASTROINTESTINAL TRACT, OPEN APPROACH [id number] 01/25/17 REMOVAL OF GALLBLADDER 44793 01/25/17 REOPENING OF ABDOMEN 34463 01/25/17 REPAIR STOMACH, OPEN APPROACH [id number] 01/25/17 RESECTION OF GALLBLADDER, OPEN APPROACH [id number] 01/25/17 RESPIRATORY VENTILATION, LESS THAN 24 CONSECUTIVE HOURS [id number] 01/25/17 STOMACH SURGERY PROCEDURE 14989 01/25/17 VENT MGMT INPAT INIT DAY 99880 01/25/17 Assessment/Plan - Problem List Patient Problems: All Active Problems H/O diabetes mellitus (Acute) Z86.39 H/O drug abuse (Acute) Z87.898 H/O: HTN (hypertension) (Acute) Z86.79 POSTCHOLECYSTECTOMY (Acute) UTI (urinary tract infection) (Acute) closeure og gastric perf (Acute) cplacement of new gj (Acute) h/o dementia (Acute) lysisi of adhesions (Acute) r/o sepsis (Acute) s/p surgery (Acute) septic shock (Acute) tachycardia (Acute) - Assessment Assessment: MELECIO Septic shock 2nd to acute peritonitis w/ large abcess ruptured viscus S/P exp. lap ALOC 2nd to Met Enceph type 2 DM Alzh Dementia Sinus tach Severe Malnutrition - Plan Plan: Lab - Result Diagrams 02/02/17 04:19 02/02/17 04:19 Current Medications Clonidine HCl (Catapres) 0.1 mg PO Q4H PRN PRN Reason: sbp >160 and diastolic >100 Stop: 03/31/17 16:11 Last Admin: 01/31/17 17:06 Dose: 0.1 mg Diltiazem HCl (Cardizem) 20 mg IVP Q4HR PRN PRN Reason: HR>120 Stop: 04/02/17 08:57 Last Admin: 02/01/17 09:20 Dose: 20 mg Enalaprilat (Vasotec) 2.5 mg IVP Q4HR PRN PRN Reason: systolic BP >160 Stop: 04/02/17 11:33 Hydromorphone HCl (Dilaudid) 1 mg IVP Q3H PRN PRN Reason: MODERATE PAIN Stop: 03/26/17 17:55 Last Admin: 02/02/17 09:14 Dose: 1 mg Hydromorphone HCl (Dilaudid) 2 mg IVP Q3H PRN PRN Reason: SEVERE PAIN Stop: 03/26/17 17:56 Last Admin: 02/02/17 03:40 Dose: 2 mg Metronidazole (Flagyl) 500 mg in 100 mls @ 100 mls/hr IV Q8HR [facility] Stop: 03/28/17 04:59 Last Admin: 02/02/17 13:39 Dose: 100 mls/hr Fluconazole 400mg/200mL (Diflucan) 400 mg in 200 mls @ 100 mls/hr IV Q24HR [facility] Stop: 04/02/17 16:44 Last Infusion: 02/01/17 19:20 Dose: Infused Piperacillin Sod/Tazobactam (Sod 4.5 gm/ Sodium Chloride) 100 mls @ 100 mls/hr IV Q8HR [facility] Stop: 04/02/17 18:29 Last Admin: 02/02/17 12:45 Dose: 100 mls/hr Sodium Chloride (Nacl 0.9%) 1,000 mls @ 100 mls/hr IV .Q10H [facility] Stop: 04/02/17 17:44 Last Admin: 02/02/17 05:55 Dose: 100 mls/hr Insulin Aspart (Novolog) 0 units SUBQ Q6HR [facility] PRN Reason: Protocol Stop: 03/28/17 08:59 Last Admin: 02/02/17 13:40 Dose: 4 units Lactobacillus Rhamnosus (Culturelle) 1 each PO DAILY [facility] Stop: 03/29/17 08:59 Last Admin: 02/02/17 08:56 Dose: Not Given Meperidine HCl (Demerol) 12.5 mg IVP Q2M PRN PRN Reason: POST-OP PAIN Stop: 03/27/17 19:19 Miscellaneous (Vancomycin Iv Per Pharmacy) 1 ea MC PRN [facility] Stop: 03/28/17 02:29 Miscellaneous (Probiotic Screen) 1 [facility] PRN PRN PRN Reason: PROTOCOL Stop: 03/28/17 13:21 Ondansetron HCl (Zofran) 4 mg IV Q6H PRN PRN Reason: Nausea / Vomiting Stop: 03/26/17 16:27 Last Admin: 01/31/17 17:13 Dose: 4 mg Pantoprazole Sodium (Protonix) 40 mg IVP BID [facility] Stop: 04/01/17 16:59 Last Admin: 02/02/17 08:56 Dose: Not Given WBC down to 19.6 Kidney fnc better, BUN/CR 37/1.5 continue IVF, start TPN f/u panculture continue Flagyl, Fluconazole, Zosyn f/u electrolytes, cbc Nutritional Asmnt/Malnutr-PDOC - Dietary Evaluation Malnutrition Findings (Please click <Entered> for more info): Nutritional Asmnt/Malnutrition Start: 01/26/17 14: 32 Text: Status: Complete Freq: Document 01/26/17 14:32 GSUN (Rec: 01/26/17 14:51 GSUN [id number]) Nutritional Asmnt/Malnutrition Patient General Information Nutritional Screening Consult Diagnosis UTI, leukocytosis maybe reactive versus sepsis Pertinent Medical Hx/Surgical Hx HTN, DM, drug abuse, dementia Subjective Information 71 year old female, homeless. RD consult for BG >180. Pt was NPO at time of visit for CT abdomen/pelvis scan. Pt was agitated and in pain during visit. Pt refused to answer RD questions, repeatedly asked about bowel prep processes, then yelled at RD to leave. Pertinent Medications Dilaudid, Zofran Pertinent Labs 01/25: A1c 6, glucose 319H Nutritional Hx/Data Height 1.73 m Height (Calculated Centimeters) 172.7 Current Weight (lbs) 69.899 kg Weight (Calculated Kilograms) 69.9 Weight (Calculated Grams) 72230.6 [place] Body Weight 140lb Weight Status Approriate GI Symptoms Cultural/Ethnic/Tenriism Belief Unknown. Usual diet at home Unknown. Estimated Nutritional Goals BEE in Kcals: Using Current wt Calories/Kcals/Kg CBW 70kg Kcals Calculated 1750-2100kcal (25-30kcal/kg, ? possible sepsis) Protein: Using Current wt Protein Calculated 70g (1g/kg) Fluid: ml 1750-2100ml (1ml/kcal) Nutritional Problem 1. Problem Problem Altered nutrition related laboratory values related to Etiology DM aeb Signs/Symptoms: H&P, glucose 319H on adm Intervention/Recommendation Comments 1. NPO at time of visit. Diet advancement per MD, recommend [id number] to promtoe glycemic control. 2. Provide edu on DM as needed . Expected Outcomes/Goals Expected Outcomes/Goals 1. [place] to meet 100% of estimated nutritional needs.
[2017-02-07] MEDS: Dextrose 5% 1,000 ML IV SCH (14:00)
[2017-02-07] MEDS ORDERED: Potassium Chloride 40 MEQ, Lidocaine 1% 20mL Vial 25 MG in Sodium Chloride 0.9% 250 ML IV ONE (14:00)
--- NOTE | 2017-02-07 15:38 | Internal Medicine Prog Note ---
Internal Medicine Subjective - Subjective Service Date: 02/07/17 Patient seen and examined:: with staff Patient is:: asleep, arousable, in bed, other (CONFUSED, not eating) Internal Medicine Objective - Results Result Diagrams: 02/07/17 04:46 02/07/17 04:46 Recent Labs: Laboratory Last Values WBC 19.6 Th/cmm (4.8-10.8) H 02/07/17 04:46 RBC 2.88 Mil/cmm (3.80-5.20) L 02/07/17 04:46 Hgb 9.5 gm/dL (11.7-16.1) L 02/07/17 04:46 Hct 28.0 % (35.0-45.0) L 02/07/17 04:46 MCV 97.0 fl (81-100) 02/07/17 04:46 MCH 32.9 pg (27.0-31.0) H 02/07/17 04:46 MCHC Differential 33.9 pg (28.0-36.0) 02/07/17 04:46 RDW 13.3 % (11.5-20.0) 02/07/17 04:46 Plt Count 273 Th/cmm (150-400) 02/07/17 04:46 MPV 8.5 fl 02/07/17 04:46 Neutrophils % ASSISTANT BASEB[employer] COACH 02/04/17 04:39 Band Neutrophils % 7 % (0-10) 02/07/17 04:46 Lymphocytes % ASSISTANT [employer] COACH 02/04/17 04:39 Monocytes % ASSISTANT [employer] COACH 02/01/17 15:55 Eosinophils % ASSISTANT [employer] COACH 02/04/17 04:39 Basophils % ASS[employer]ANT [employer] COACH 02/01/17 15:55 Neutrophils (Manual) 79 % (40-80) 02/07/17 04:46 Lymphocytes 6 % (20-50) L 02/07/17 04:46 Monocytes 6 % (2-10) 02/07/17 04:46 Eosinophils 1 % (0-5) 02/07/17 04:46 Basophils 1 % (0-3) 02/02/17 04:19 Metamyelocytes 2 % (0-0) H 02/02/17 04:19 Myelocytes 2 % 01/31/17 05:40 Atypical Lymphocytes 1 % 02/07/17 04:46 Hypochromia 1+ 02/05/17 04:40 Platelet Estimate ADEQUATE (NORMAL) 02/07/17 04:46 Platelet Morphology PLATELET CLUMPS SEEN (NORMAL) 02/07/17 04:46 Polychromasia 1+ 02/05/17 04:40 Anisocytosis 1+ 02/03/17 04:53 RBC Morph Micro Appear NORMAL (NORMAL) 02/07/17 04:46 Smear Path Review SEE BELOW 02/03/17 04:53 Eos Smear Source URINE 02/02/17 06:00 Eos Smear Total Cells NONE SEEN (NONE SEEN) 02/02/17 06:00 PT 9.9 SECONDS (9.5-11.5) 01/25/17 01:48 INR 0.95 (0.5-1.4) 01/25/17 01:48 Specimen Source Arterial 01/27/17 09:13 Sample Site Right Radial 01/27/17 09:13 pH 7.36 (7.35-7.45) 01/27/17 09:13 pCO2 41.0 mmHg (35.0-45.0) 01/27/17 09:13 pO2 100.0 mmHg (80.0-100.0) 01/27/17 09:13 HCO3 23.2 mEq/L (20.0-26.0) 01/27/17 09:13 Base Excess -2.2 mEq/L (-3.0-3.0) 01/27/17 09:13 O2 Saturation 97.0 % (92.0-100.0) 01/27/17 09:13 Luther Test PASS 01/27/17 09:13 Vent Rate 13 01/27/17 09:13 Inspired O2 30 01/27/17 09:13 Tidal Volume 500 01/27/17 09:13 PEEP 5 01/27/17 09:13 Pressure (ins/psv/peep) N/A 01/26/17 21:00 Critical Value PW 01/27/17 09:13 Sodium 155 mEq/L (136-145) H 02/07/17 04:46 Potassium 3.1 mEq/L (3.5-5.1) L 02/07/17 04:46 Chloride 125 mEq/L (98-107) H 02/07/17 04:46 Carbon Dioxide 25.0 mEq/L (21.0-31.0) 02/07/17 04:46 Anion Gap 8.1 (7.0-16.0) 02/07/17 04:46 BUN 37 mg/dL (7-25) H 02/07/17 04:46 Creatinine 1.5 mg/dL (0.6-1.2) H 02/07/17 04:46 Est GFR ( Amer) 44.3 ml/min (>90) 02/07/17 04:46 Est GFR (Non-Af Amer) 36.6 ml/min 02/07/17 04:46 BUN/Creatinine Ratio 24.7 02/07/17 04:46 Glucose 180 mg/dL (70-105) H 02/07/17 04:46 POC Glucose 124 MG/DL (70 - 105) H 02/07/17 12:19 Hemoglobin A1c % 6.0 % (4.0-6.0) 01/25/17 01:48 Whole Bld Lactic Acid 1.68 mmol/L (0.60-1.99) 02/03/17 04:53 Uric Acid 4.4 mg/dL (2.3-6.6) 02/02/17 04:19 Calcium 7.8 mg/dL (8.6-10.3) L 02/07/17 04:46 Phosphorus 3.2 mg/dL (2.5-5.0) 02/06/17 04:31 Magnesium 1.9 mg/dL (1.9-2.7) 02/06/17 04:31 Total Bilirubin 0.3 mg/dL (0.3-1.0) 02/06/17 04:31 AST 26 U/L (13-39) 02/06/17 04:31 ALT 17 U/L (7-52) 02/06/17 04:31 Alkaline Phosphatase 70 U/L (34-104) 02/06/17 04:31 Troponin I < 0.01 ng/mL (0.01-0.05) L 01/25/17 01:48 Total Protein 4.6 gm/dL (6.0-8.3) L 02/06/17 04:31 Albumin 2.0 gm/dL (3.7-5.3) L 02/06/17 04:31 Globulin 2.6 gm/dL 02/06/17 04:31 Albumin/Globulin Ratio 0.8 (1.0-1.8) L 02/06/17 04:31 Triglycerides 98 mg/dL (<150) 01/25/17 01:48 Cholesterol 146 mg/dL (<200) 01/25/17 01:48 LDL Cholesterol Direct 37 mg/dL (75-193) L 01/25/17 01:48 HDL Cholesterol 83 mg/dL (23-92) 01/25/17 01:48 TSH 1.45 uIU/ml (0.34-5.60) 01/25/17 01:48 Urine Source RANDOM 02/02/17 06:00 Urine Color BROWN 02/02/17 06:00 Urine Clarity SL. CLOUDY (CLEAR) 02/02/17 06:00 Urine pH 6.0 02/02/17 06:00 Ur Specific [place] 1.025 (1.005-1.030) 02/02/17 06:00 Urine Protein >300 mg/dL (NEGATIVE) H 02/02/17 06:00 Urine Glucose (UA) NEGATIVE mg/dL (NEGATIVE) 02/02/17 06:00 Urine Ketones NEGATIVE mg/dL (NEGATIVE) 02/02/17 06:00 Urine Blood LARGE (NEGATIVE) H 02/02/17 06:00 Urine Nitrate NEGATIVE (NEGATIVE) 02/02/17 06:00 Urine Bilirubin SMALL (NEGATIVE) H 02/02/17 06:00 Urine Urobilinogen 0.2 E.U./dL (0.2 - 1.0) 02/02/17 06:00 Ur Leukocyte Esterase NEGATIVE (NEGATIVE) 02/02/17 06:00 Urine RBC 50-100 /hpf (0-5) H 02/02/17 06:00 Urine WBC 6-10 /hpf (0-5) H 02/02/17 06:00 Ur Epithelial Cells MODERATE /lpf (FEW) 02/02/17 06:00 Amorphous Sediment MANY URATES (NONE SEEN) 02/02/17 06:00 Urine Bacteria MODERATE /hpf (NONE SEEN) 02/02/17 06:00 Ur Random Sodium 59 mmol/L 02/02/17 06:00 Urine Creatinine 129.0 mg/dl (28.0-217.0) 02/02/17 06:00 Vancomycin Trough 6.1 ug/mL (10-20) L 01/29/17 23:03 Random Vancomycin 10.8 ug/mL (5.0-40.0) 02/07/17 04:46 Salicylates < 25.0 mg/L (30.0-100.0) L 01/25/17 01:48 Urine Opiates Screen POSITIVE (NEGATIVE) H 01/25/17 03:00 Acetaminophen < 10.0 ug/mL (10.0-30.0) L 01/25/17 01:48 Ur Barbiturates Screen NEGATIVE (NEGATIVE) 01/25/17 03:00 Ur Phencyclidine Scrn NEGATIVE (NEGATIVE) 01/25/17 03:00 Amphetamines Screen POSITIVE (NEGATIVE) H 01/25/17 03:00 U Methamphetamines Scrn POSITIVE (NEGATIVE) H 01/25/17 03:00 U Benzodiazepines Scrn NEGATIVE (NEGATIVE) 01/25/17 03:00 U Cocaine Metab Screen NEGATIVE (NEGATIVE) 01/25/17 03:00 U Cannabinoids Screen NEGATIVE (NEGATIVE) 01/25/17 03:00 Ethyl Alcohol < 10 mg/dL (0-10) 01/25/17 01:48 RPR NONREACTIVE (NONREACTIVE) 01/25/17 01:48 HIV 1&2 Antibody Screen NEGATIVE (NEG) 01/26/17 05:02 - Physical Exam Vitals and I&O: Vital Signs Temp 98.1 F 02/07/17 12:00 Pulse 115 02/07/17 14:00 Resp 26 02/07/17 14:00 BP 157/94 02/07/17 14:00 Pulse Ox 98 02/07/17 14:00 Intake & Output 02/06/17 02/07/17 02/07/17 18:59 06:59 18:59 Intake Total 200 1200 1350 Output Total 1250 1230 Balance -1050 -30 1350 Intake: Intake, IV Amount 200 1200 1350 D5-0.45NS 1,000 ml @ 100 1000 1000 mls/hr IV .Q10H [facility] Rx#: [id number] Fluconazole 200mg/100mL 100 200 mg In 100 ml @ 100 mls/hr IV Q24HR [facility] Rx#: [id number] Meropenem 500 mg In 200 100 100 Sodium Chloride 0.9% 100 ml @ 100 mls/hr IV Q8H [facility] Rx#:[id number] Vancomycin HCl 1.25 gm In 250 Sodium Chloride 0.9% 250 ml @ 165 mls/hr IV ONCE ONE Rx#:[id number] Oral 0 Output: Drainage 250 230 Left Lower Abdomen 50 10 Right Lower Abdomen 200 220 Urine 1000 1000 Active Medications: Current Medications Clonidine HCl (Catapres) 0.1 mg PO Q4H PRN PRN Reason: sbp >160 and diastolic >100 Stop: 03/31/17 16:11 Last Admin: 01/31/17 17:06 Dose: 0.1 mg Diltiazem HCl (Cardizem) 20 mg IVP Q4HR PRN PRN Reason: HR>120 Stop: 04/02/17 08:57 Last Admin: 02/03/17 21:57 Dose: 20 mg Enalaprilat (Vasotec) 2.5 mg IVP Q4HR PRN PRN Reason: systolic BP >160 Stop: 04/02/17 11:33 Hydromorphone HCl (Dilaudid) 1 mg IVP Q3H PRN PRN Reason: MODERATE PAIN Stop: 03/26/17 17:55 Last Admin: 02/03/17 16:10 Dose: 1 mg Hydromorphone HCl (Dilaudid) 2 mg IVP Q3H PRN PRN Reason: SEVERE PAIN Stop: 03/26/17 17:56 Last Admin: 02/05/17 09:36 Dose: 2 mg Meropenem 500 mg/ Sodium (Chloride) 100 mls @ 100 mls/hr IV Q8H [facility] Stop: 04/04/17 07:44 Last Infusion: 02/07/17 09:00 Dose: Infused Fluconazole (Diflucan) 200 mg in 100 mls @ 100 mls/hr IV Q24HR [facility] Stop: 04/07/17 04:59 Last Infusion: 02/07/17 06:53 Dose: Infused Vancomycin HCl 1.25 gm/ Sodium (Chloride) 250 mls @ 165 mls/hr IV Q24H [facility] Stop: 04/09/17 10:59 Potassium Chloride 40 meq/Lidocaine HCl 25 mg/ Sodium Chloride 272.5 mls @ 68 mls/hr IV X1 ONE Stop: 02/07/17 18:00 Last Admin: 02/07/17 14:00 Dose: 68 mls/hr Dextrose (D5w) 1,000 mls @ 100 mls/hr IV .Q10H [facility] Stop: 04/08/17 13:44 Last Admin: 02/07/17 14:00 Dose: 100 mls/hr Insulin Aspart (Novolog) 0 units SUBQ Q6HR [facility] PRN Reason: Protocol Stop: 03/28/17 08:59 Last Admin: 02/07/17 12:19 Dose: Not Given Lactobacillus Rhamnosus (Culturelle) 1 each PO DAILY [facility] Stop: 03/29/17 08:59 Last Admin: 02/07/17 09:00 Dose: Not Given Lorazepam (Ativan) 1 mg IVP Q4HR PRN; Protocol PRN Reason: Anxiety Stop: 04/05/17 09:56 Last Admin: 02/06/17 18:18 Dose: 1 mg Metoclopramide HCl (Reglan) 10 mg IVP Q8HR PRN PRN Reason: ileus Stop: 04/05/17 15:01 Last Admin: 02/04/17 16:32 Dose: 10 mg Miscellaneous (Probiotic Screen) 1 ea PRN PRN PRN Reason: PROTOCOL Stop: 03/28/17 13:21 Miscellaneous (Vancomycin Iv Per Pharmacy) 1 ea PRN [facility] Stop: 04/04/17 05:14 Ondansetron HCl (Zofran) 4 mg IV UD PRN PRN Reason: Nausea / Vomiting Stop: 04/03/17 18:25 Pantoprazole Sodium (Protonix) 40 mg IVP BID [facility] Stop: 04/01/17 16:59 Last Admin: 02/07/17 09:30 Dose: 40 mg Sodium Phosphate (Fleet Enema) 135 ml RC PRN PRN PRN Reason: Constipation Stop: 04/07/17 09:54 General: weak HEENT: NC/AT, PERRLA, EOMI Neck: Supple Lungs: CTAB Cardiovascular: RRR, Normal S1 Abdomen: other (abdomen tender, j-p drains draining 200 ml bloody discharge, dressing in the middle) Extremities: no edema, no clubbing, no cyanosis Neurological: no change, lethargic, unsteady, other (confused) - Procedures Procedures: Procedures Procedure Code Date BYPASS STOMACH TO JEJUNUM, OPEN APPROACH [id number] 01/25/17 FUSION OF STOMACH AND BOWEL 03986 01/25/17 INSPECTION OF GASTROINTESTINAL TRACT, OPEN APPROACH [id number] 01/25/17 REMOVAL OF GALLBLADDER 00542 01/25/17 REOPENING OF ABDOMEN 46190 01/25/17 REPAIR STOMACH, OPEN APPROACH [id number] 01/25/17 RESECTION OF GALLBLADDER, OPEN APPROACH [id number] 01/25/17 RESPIRATORY VENTILATION, LESS THAN 24 CONSECUTIVE HOURS [id number] 01/25/17 STOMACH SURGERY PROCEDURE 81985 01/25/17 VENT MGMT INPAT INIT DAY 54362 01/25/17 Internal Medicine Assmt/Plan - Assessment Assessment: ABDOMINAL ABCESS S/P SECOND SURGERY RENAL FAILURE HTN HX GASTRIC BYPASS - Plan Plan: CPM DONOT DISCHARGE WITHOPUT MY CONSENT NO TRANSFER TO [facility] d/w Dr Coyne. Patient is confused, weak, not eating no discharge until po intake resumes and PT eval occurs Nutritional Asmnt/Malnutr-PDOC - Dietary Evaluation Malnutrition Findings (Please click <Entered> for more info): Nutritional Asmnt/Malnutrition Start: 01/26/17 14: 32 Text: Status: Complete Freq: Document 01/26/17 14:32 GSUN (Rec: 01/26/17 14:51 GSUN [id number]) Nutritional Asmnt/Malnutrition Patient General Information Nutritional Screening Consult Diagnosis UTI, leukocytosis maybe reactive versus sepsis Pertinent Medical Hx/Surgical Hx HTN, DM, drug abuse, dementia Subjective Information 71 year old female, homeless. RD consult for BG >180. Pt was NPO at time of visit for CT abdomen/pelvis scan. Pt was agitated and in pain during visit. Pt refused to answer RD questions, repeatedly asked about bowel prep processes, then yelled at RD to leave. Pertinent Medications Dilaudid, Zofran Pertinent Labs 01/25: A1c 6, glucose 319H Nutritional Hx/Data Height 1.73 m Height (Calculated Centimeters) 172.7 Current Weight (lbs) 69.899 kg Weight (Calculated Kilograms) 69.9 Weight (Calculated Grams) 55256.6 [place] Body Weight 140lb Weight Status Approriate GI Symptoms Cultural/Ethnic/Buddhist Belief Unknown. Usual diet at home Unknown. Estimated Nutritional Goals BEE in Kcals: Using Current wt Calories/Kcals/Kg CBW 70kg Kcals Calculated 1750-2100kcal (25-30kcal/kg, ? possible sepsis) Protein: Using Current wt Protein Calculated 70g (1g/kg) Fluid: ml 1750-2100ml (1ml/kcal) Nutritional Problem 1. Problem Problem Altered nutrition related laboratory values related to Etiology DM aeb Signs/Symptoms: H&P, glucose 319H on adm Intervention/Recommendation Comments 1. NPO at time of visit. Diet advancement per MD, recommend [id number] to promtoe glycemic control. 2. Provide edu on DM as needed . Expected Outcomes/Goals Expected Outcomes/Goals 1. Po itnake to meet 100% of estimated nutritional needs.
--- NOTE | 2017-02-07 15:59 | General Progress Note ---
Subjective - Review of Systems Service Date: 02/07/17 Events since last encounter: patient has had no flatus or BM post op dressings changed, incision is healing, sluggish peristalsis labs still leukocytosis will start clear liquids to see if patient can tolerate it Objective - Results Result Diagrams: 02/07/17 04:46 02/07/17 04:46 Recent Labs: Laboratory Last Values WBC 19.6 Th/cmm (4.8-10.8) H 02/07/17 04:46 RBC 2.88 Mil/cmm (3.80-5.20) L 02/07/17 04:46 Hgb 9.5 gm/dL (11.7-16.1) L 02/07/17 04:46 Hct 28.0 % (35.0-45.0) L 02/07/17 04:46 MCV 97.0 fl (81-100) 02/07/17 04:46 MCH 32.9 pg (27.0-31.0) H 02/07/17 04:46 MCHC Differential 33.9 pg (28.0-36.0) 02/07/17 04:46 RDW 13.3 % (11.5-20.0) 02/07/17 04:46 Plt Count 273 Th/cmm (150-400) 02/07/17 04:46 MPV 8.5 fl 02/07/17 04:46 Neutrophils % BENCH MOLDER 02/04/17 04:39 Band Neutrophils % 7 % (0-10) 02/07/17 04:46 Lymphocytes % BENCH MOLDER 02/04/17 04:39 Monocytes % BENCH MOLDER 02/01/17 15:55 Eosinophils % BENCH MOLDER 02/04/17 04:39 Basophils % BENCH MOLDER 02/01/17 15:55 Neutrophils (Manual) 79 % (40-80) 02/07/17 04:46 Lymphocytes 6 % (20-50) L 02/07/17 04:46 Monocytes 6 % (2-10) 02/07/17 04:46 Eosinophils 1 % (0-5) 02/07/17 04:46 Basophils 1 % (0-3) 02/02/17 04:19 Metamyelocytes 2 % (0-0) H 02/02/17 04:19 Myelocytes 2 % 01/31/17 05:40 Atypical Lymphocytes 1 % 02/07/17 04:46 Hypochromia 1+ 02/05/17 04:40 Platelet Estimate ADEQUATE (NORMAL) 02/07/17 04:46 Platelet Morphology PLATELET CLUMPS SEEN (NORMAL) 02/07/17 04:46 Polychromasia 1+ 02/05/17 04:40 Anisocytosis 1+ 02/03/17 04:53 RBC Morph Micro Appear NORMAL (NORMAL) 02/07/17 04:46 Smear Path Review SEE BELOW 02/03/17 04:53 Eos Smear Source URINE 02/02/17 06:00 Eos Smear Total Cells NONE SEEN (NONE SEEN) 02/02/17 06:00 PT 9.9 SECONDS (9.5-11.5) 01/25/17 01:48 INR 0.95 (0.5-1.4) 01/25/17 01:48 Specimen Source Arterial 01/27/17 09:13 Sample Site Right Radial 01/27/17 09:13 pH 7.36 (7.35-7.45) 01/27/17 09:13 pCO2 41.0 mmHg (35.0-45.0) 01/27/17 09:13 pO2 100.0 mmHg (80.0-100.0) 01/27/17 09:13 HCO3 23.2 mEq/L (20.0-26.0) 01/27/17 09:13 Base Excess -2.2 mEq/L (-3.0-3.0) 01/27/17 09:13 O2 Saturation 97.0 % (92.0-100.0) 01/27/17 09:13 Luther Test PASS 01/27/17 09:13 Vent Rate 13 01/27/17 09:13 Inspired O2 30 01/27/17 09:13 Tidal Volume 500 01/27/17 09:13 PEEP 5 01/27/17 09:13 Pressure (ins/psv/peep) N/A 01/26/17 21:00 Critical Value PW 01/27/17 09:13 Sodium 155 mEq/L (136-145) H 02/07/17 04:46 Potassium 3.1 mEq/L (3.5-5.1) L 02/07/17 04:46 Chloride 125 mEq/L (98-107) H 02/07/17 04:46 Carbon Dioxide 25.0 mEq/L (21.0-31.0) 02/07/17 04:46 Anion Gap 8.1 (7.0-16.0) 02/07/17 04:46 BUN 37 mg/dL (7-25) H 02/07/17 04:46 Creatinine 1.5 mg/dL (0.6-1.2) H 02/07/17 04:46 Est GFR ( Amer) 44.3 ml/min (>90) 02/07/17 04:46 Est GFR (Non-Af Amer) 36.6 ml/min 02/07/17 04:46 BUN/Creatinine Ratio 24.7 02/07/17 04:46 Glucose 180 mg/dL (70-105) H 02/07/17 04:46 POC Glucose 124 MG/DL (70 - 105) H 02/07/17 12:19 Hemoglobin A1c % 6.0 % (4.0-6.0) 01/25/17 01:48 Whole Bld Lactic Acid 1.68 mmol/L (0.60-1.99) 02/03/17 04:53 Uric Acid 4.4 mg/dL (2.3-6.6) 02/02/17 04:19 Calcium 7.8 mg/dL (8.6-10.3) L 02/07/17 04:46 Phosphorus 3.2 mg/dL (2.5-5.0) 02/06/17 04:31 Magnesium 1.9 mg/dL (1.9-2.7) 02/06/17 04:31 Total Bilirubin 0.3 mg/dL (0.3-1.0) 02/06/17 04:31 AST 26 U/L (13-39) 02/06/17 04:31 ALT 17 U/L (7-52) 02/06/17 04:31 Alkaline Phosphatase 70 U/L (34-104) 02/06/17 04:31 Troponin I < 0.01 ng/mL (0.01-0.05) L 01/25/17 01:48 Total Protein 4.6 gm/dL (6.0-8.3) L 02/06/17 04:31 Albumin 2.0 gm/dL (3.7-5.3) L 02/06/17 04:31 Globulin 2.6 gm/dL 02/06/17 04:31 Albumin/Globulin Ratio 0.8 (1.0-1.8) L 02/06/17 04:31 Triglycerides 98 mg/dL (<150) 01/25/17 01:48 Cholesterol 146 mg/dL (<200) 01/25/17 01:48 LDL Cholesterol Direct 37 mg/dL (75-193) L 01/25/17 01:48 HDL Cholesterol 83 mg/dL (23-92) 01/25/17 01:48 TSH 1.45 uIU/ml (0.34-5.60) 01/25/17 01:48 Urine Source RANDOM 02/02/17 06:00 Urine Color BROWN 02/02/17 06:00 Urine Clarity SL. CLOUDY (CLEAR) 02/02/17 06:00 Urine pH 6.0 02/02/17 06:00 Ur Specific [place] 1.025 (1.005-1.030) 02/02/17 06:00 Urine Protein >300 mg/dL (NEGATIVE) H 02/02/17 06:00 Urine Glucose (UA) NEGATIVE mg/dL (NEGATIVE) 02/02/17 06:00 Urine Ketones NEGATIVE mg/dL (NEGATIVE) 02/02/17 06:00 Urine Blood LARGE (NEGATIVE) H 02/02/17 06:00 Urine Nitrate NEGATIVE (NEGATIVE) 02/02/17 06:00 Urine Bilirubin SMALL (NEGATIVE) H 02/02/17 06:00 Urine Urobilinogen 0.2 E.U./dL (0.2 - 1.0) 02/02/17 06:00 Ur Leukocyte Esterase NEGATIVE (NEGATIVE) 02/02/17 06:00 Urine RBC 50-100 /hpf (0-5) H 02/02/17 06:00 Urine WBC 6-10 /hpf (0-5) H 02/02/17 06:00 Ur Epithelial Cells MODERATE /lpf (FEW) 02/02/17 06:00 Amorphous Sediment MANY URATES (NONE SEEN) 02/02/17 06:00 Urine Bacteria MODERATE /hpf (NONE SEEN) 02/02/17 06:00 Ur Random Sodium 59 mmol/L 02/02/17 06:00 Urine Creatinine 129.0 mg/dl (28.0-217.0) 02/02/17 06:00 Vancomycin Trough 6.1 ug/mL (10-20) L 01/29/17 23:03 Random Vancomycin 10.8 ug/mL (5.0-40.0) 02/07/17 04:46 Salicylates < 25.0 mg/L (30.0-100.0) L 01/25/17 01:48 Urine Opiates Screen POSITIVE (NEGATIVE) H 01/25/17 03:00 Acetaminophen < 10.0 ug/mL (10.0-30.0) L 01/25/17 01:48 Ur Barbiturates Screen NEGATIVE (NEGATIVE) 01/25/17 03:00 Ur Phencyclidine Scrn NEGATIVE (NEGATIVE) 01/25/17 03:00 Amphetamines Screen POSITIVE (NEGATIVE) H 01/25/17 03:00 U Methamphetamines Scrn POSITIVE (NEGATIVE) H 01/25/17 03:00 U Benzodiazepines Scrn NEGATIVE (NEGATIVE) 01/25/17 03:00 U Cocaine Metab Screen NEGATIVE (NEGATIVE) 01/25/17 03:00 U Cannabinoids Screen NEGATIVE (NEGATIVE) 01/25/17 03:00 Ethyl Alcohol < 10 mg/dL (0-10) 01/25/17 01:48 RPR NONREACTIVE (NONREACTIVE) 01/25/17 01:48 HIV 1&2 Antibody Screen NEGATIVE (NEG) 01/26/17 05:02 - Physical Exam Vitals and I&O: Vital Signs Temp 98.1 F 02/07/17 12:00 Pulse 115 02/07/17 14:00 Resp 26 02/07/17 14:00 BP 157/94 02/07/17 14:00 Pulse Ox 98 02/07/17 14:00 Intake & Output 02/06/17 02/07/17 02/07/17 18:59 06:59 18:59 Intake Total 200 1200 1350 Output Total 1250 1230 Balance -1050 -30 1350 Intake: Intake, IV Amount 200 1200 1350 D5-0.45NS 1,000 ml @ 100 1000 1000 mls/hr IV .Q10H [facility] Rx#: [id number] Fluconazole 200mg/100mL 100 200 mg In 100 ml @ 100 mls/hr IV Q24HR [facility] Rx#: [id number] Meropenem 500 mg In 200 100 100 Sodium Chloride 0.9% 100 ml @ 100 mls/hr IV Q8H [facility] Rx#:[id number] Vancomycin HCl 1.25 gm In 250 Sodium Chloride 0.9% 250 ml @ 165 mls/hr IV ONCE ONE Rx#:[id number] Oral 0 Output: Drainage 250 230 Left Lower Abdomen 50 10 Right Lower Abdomen 200 220 Urine 1000 1000 Active Medications: Current Medications Clonidine HCl (Catapres) 0.1 mg PO Q4H PRN PRN Reason: sbp >160 and diastolic >100 Stop: 03/31/17 16:11 Last Admin: 01/31/17 17:06 Dose: 0.1 mg Diltiazem HCl (Cardizem) 20 mg IVP Q4HR PRN PRN Reason: HR>120 Stop: 04/02/17 08:57 Last Admin: 02/03/17 21:57 Dose: 20 mg Enalaprilat (Vasotec) 2.5 mg IVP Q4HR PRN PRN Reason: systolic BP >160 Stop: 04/02/17 11:33 Hydromorphone HCl (Dilaudid) 1 mg IVP Q3H PRN PRN Reason: MODERATE PAIN Stop: 03/26/17 17:55 Last Admin: 02/03/17 16:10 Dose: 1 mg Hydromorphone HCl (Dilaudid) 2 mg IVP Q3H PRN PRN Reason: SEVERE PAIN Stop: 03/26/17 17:56 Last Admin: 02/05/17 09:36 Dose: 2 mg Meropenem 500 mg/ Sodium (Chloride) 100 mls @ 100 mls/hr IV Q8H [facility] Stop: 04/04/17 07:44 Last Admin: 02/07/17 15:45 Dose: 100 mls/hr Fluconazole (Diflucan) 200 mg in 100 mls @ 100 mls/hr IV Q24HR [facility] Stop: 04/07/17 04:59 Last Infusion: 02/07/17 06:53 Dose: Infused Vancomycin HCl 1.25 gm/ Sodium (Chloride) 250 mls @ 165 mls/hr IV Q24H [facility] Stop: 04/09/17 10:59 Potassium Chloride 40 meq/Lidocaine HCl 25 mg/ Sodium Chloride 272.5 mls @ 68 mls/hr IV X1 ONE Stop: 02/07/17 18:00 Last Admin: 02/07/17 14:00 Dose: 68 mls/hr Dextrose (D5w) 1,000 mls @ 100 mls/hr IV .Q10H [facility] Stop: 04/08/17 13:44 Last Admin: 02/07/17 14:00 Dose: 100 mls/hr Insulin Aspart (Novolog) 0 units SUBQ Q6HR ANISH PRN Reason: Protocol Stop: 03/28/17 08:59 Last Admin: 02/07/17 12:19 Dose: Not Given Lactobacillus Rhamnosus (Culturelle) 1 each PO DAILY [facility] Stop: 03/29/17 08:59 Last Admin: 02/07/17 09:00 Dose: Not Given Lorazepam (Ativan) 1 mg IVP Q4HR PRN; Protocol PRN Reason: Anxiety Stop: 04/05/17 09:56 Last Admin: 02/06/17 18:18 Dose: 1 mg Metoclopramide HCl (Reglan) 10 mg IVP Q8HR PRN PRN Reason: ileus Stop: 04/05/17 15:01 Last Admin: 02/04/17 16:32 Dose: 10 mg Miscellaneous (Probiotic Screen) 1 ea PRN PRN PRN Reason: PROTOCOL Stop: 03/28/17 13:21 Miscellaneous (Vancomycin Iv Per Pharmacy) 1 ea MC PRN ANISH Stop: 04/04/17 05:14 Ondansetron HCl (Zofran) 4 mg IV UD PRN PRN Reason: Nausea / Vomiting Stop: 04/03/17 18:25 Pantoprazole Sodium (Protonix) 40 mg IVP BID [facility] Stop: 04/01/17 16:59 Last Admin: 02/07/17 09:30 Dose: 40 mg Sodium Phosphate (Fleet Enema) 135 ml RC PRN PRN PRN Reason: Constipation Stop: 04/07/17 09:54 - Procedures Procedures: Procedures Procedure Code Date BYPASS STOMACH TO JEJUNUM, OPEN APPROACH [id number] 01/25/17 FUSION OF STOMACH AND BOWEL 43784 01/25/17 INSPECTION OF GASTROINTESTINAL TRACT, OPEN APPROACH [id number] 01/25/17 REMOVAL OF GALLBLADDER 29006 01/25/17 REOPENING OF ABDOMEN 95360 01/25/17 REPAIR STOMACH, OPEN APPROACH [id number] 01/25/17 RESECTION OF GALLBLADDER, OPEN APPROACH [id number] 01/25/17 RESPIRATORY VENTILATION, LESS THAN 24 CONSECUTIVE HOURS [id number] 01/25/17 STOMACH SURGERY PROCEDURE 07861 01/25/17 VENT MGMT INPAT INIT DAY 99379 01/25/17 Assessment/Plan - Problem List Patient Problems: All Active Problems H/O diabetes mellitus (Acute) Z86.39 H/O drug abuse (Acute) Z87.898 H/O: HTN (hypertension) (Acute) Z86.79 POSTCHOLECYSTECTOMY (Acute) UTI (urinary tract infection) (Acute) closeure og gastric perf (Acute) cplacement of new gj (Acute) h/o dementia (Acute) lysisi of adhesions (Acute) r/o sepsis (Acute) s/p surgery (Acute) septic shock (Acute) tachycardia (Acute) Nutritional Asmnt/Malnutr-PDOC - Dietary Evaluation Malnutrition Findings (Please click <Entered> for more info): Nutritional Asmnt/Malnutrition Start: 01/26/17 14: 32 Text: Status: Complete Freq: Document 01/26/17 14:32 GSUN (Rec: 01/26/17 14:51 GSUN [id number]) Nutritional Asmnt/Malnutrition Patient General Information Nutritional Screening Consult Diagnosis UTI, leukocytosis maybe reactive versus sepsis Pertinent Medical Hx/Surgical Hx HTN, DM, drug abuse, dementia Subjective Information 71 year old female, homeless. RD consult for BG >180. Pt was NPO at time of visit for CT abdomen/pelvis scan. Pt was agitated and in pain during visit. Pt refused to answer RD questions, repeatedly asked about bowel prep processes, then yelled at RD to leave. Pertinent Medications Dilaudid, Zofran Pertinent Labs 01/25: A1c 6, glucose 319H Nutritional Hx/Data Height 1.73 m Height (Calculated Centimeters) 172.7 Current Weight (lbs) 69.899 kg Weight (Calculated Kilograms) 69.9 Weight (Calculated Grams) 25972.6 [place] Body Weight 140lb Weight Status Approriate GI Symptoms Cultural/Ethnic/Judaism Belief Unknown. Usual diet at home Unknown. Estimated Nutritional Goals BEE in Kcals: Using Current wt Calories/Kcals/Kg CBW 70kg Kcals Calculated 1750-2100kcal (25-30kcal/kg, ? possible sepsis) Protein: Using Current wt Protein Calculated 70g (1g/kg) Fluid: ml 1750-2100ml (1ml/kcal) Nutritional Problem 1. Problem Problem Altered nutrition related laboratory values related to Etiology DM aeb Signs/Symptoms: H&P, glucose 319H on adm Intervention/Recommendation Comments 1. NPO at time of visit. Diet advancement per MD, recommend [id number] to promtoe glycemic control. 2. Provide edu on DM as needed . Expected Outcomes/Goals Expected Outcomes/Goals 1. Po [place] to meet 100% of estimated nutritional needs.
[2017-02-07] MEDS: HYDROmorphone 2 mg/mL 1mL Vial IVP PRN (22:33)
[2017-02-08] MEDS: Dextrose 5% 1,000 ML IV SCH ×2 (02:26→16:09)
[2017-02-08 05:01] LABS: HEMATOCRIT 29.6 % (35.0-45.0); HEMOGLOBIN 10.2 gm/dL (11.7-16.1); MEAN CELL VOLUME 95.8 fl (81-100); MEAN CORPUSCULAR HEMOGLOBIN 33.1 pg (27.0-31.0); MEAN CORPUSCULAR HGB CONC 34.6 pg (28.0-36.0); MEAN PLATELET VOLUME 8.6 fl; PLATELET COUNT 290 Th/cmm (150-400); RED BLOOD COUNT 3.09 Mil/cmm (3.80-5.20); RED CELL DISTRIBUTION WIDTH 13.4 % (11.5-20.0)
[2017-02-08 05:17] LABS: BUN/CREATININE RATIO 22.1; CALCIUM SERUM 7.9 mg/dL (8.6-10.3); CREATININE - SERUM 1.4 mg/dL (0.6-1.2); WHITE BLOOD COUNT 15.4 Th/cmm (4.8-10.8)
[2017-02-08] MEDS: Fluconazole 200 mg/100 mL Premix Bag IV SCH (05:41)
[2017-02-08 05:46] LABS: ANION GAP 2.4 (7.0-16.0); CARBON DIOXIDE 27.9 mEq/L (21.0-31.0); POTASSIUM SERUM 3.3 mEq/L (3.5-5.1)
[2017-02-08] MEDS: INSULIN ASPART, RECOMBINANT 100 UNITS/ML SUBQ SCH ×4 (05:54→23:54)
[2017-02-08 07:36] LABS: BAND NEUTROPHILE 4 % (0-10); EOSINOPHIL 3 % (0-5); NEUTROPHILS 84 % (40-80); TOTAL CELLS COUNTED 100
[2017-02-08 07:37] LABS: PLATELET ESTIMATE ADEQUATE (NORMAL); PLATELET MORPHOLOGY NORMAL (NORMAL)
[2017-02-08] MEDS: Lactobacillus Rhamnosus 10 Billion CFU Capsule PO SCH (09:26)
[2017-02-08] MEDS: Meropenem 500 MG in Sodium Chloride 0.9% 100 ML IV SCH ×3 (09:26→23:21)
--- NOTE | 2017-02-08 09:51 | General Progress Note ---
Subjective - Review of Systems Service Date: 02/08/17 Events since last encounter: very confused Reglan on scheduled dose abdomen is soft, no BM, or flatus Objective - Results Result Diagrams: 02/08/17 04:35 02/08/17 04:35 Recent Labs: Laboratory Last Values WBC 15.4 Th/cmm (4.8-10.8) H D 02/08/17 04:35 RBC 3.09 Mil/cmm (3.80-5.20) L 02/08/17 04:35 Hgb 10.2 gm/dL (11.7-16.1) L 02/08/17 04:35 Hct 29.6 % (35.0-45.0) L 02/08/17 04:35 MCV 95.8 fl (81-100) 02/08/17 04:35 MCH 33.1 pg (27.0-31.0) H 02/08/17 04:35 MCHC Differential 34.6 pg (28.0-36.0) 02/08/17 04:35 RDW 13.4 % (11.5-20.0) 02/08/17 04:35 Plt Count 290 Th/cmm (150-400) 02/08/17 04:35 MPV 8.6 fl 02/08/17 04:35 Neutrophils % [employer] 02/04/17 04:39 Band Neutrophils % 4 % (0-10) 02/08/17 04:35 Lymphocytes % [employer] 02/04/17 04:39 Monocytes % [employer] TE[employer]ER 02/01/17 15:55 Eosinophils % [employer]INGS TE[employer]ER 02/04/17 04:39 Basophils % [employer]INGS TE[employer]ER 02/01/17 15:55 Neutrophils (Manual) 84 % (40-80) H 02/08/17 04:35 Lymphocytes 5 % (20-50) L 02/08/17 04:35 Monocytes 3 % (2-10) 02/08/17 04:35 Eosinophils 3 % (0-5) 02/08/17 04:35 Basophils 1 % (0-3) 02/02/17 04:19 Metamyelocytes 2 % (0-0) H 02/02/17 04:19 Myelocytes 2 % 01/31/17 05:40 Atypical Lymphocytes 1 % 02/08/17 04:35 Hypochromia 1+ 02/05/17 04:40 Platelet Estimate ADEQUATE (NORMAL) 02/08/17 04:35 Platelet Morphology NORMAL (NORMAL) 02/08/17 04:35 Polychromasia 1+ 02/05/17 04:40 Anisocytosis 1+ 02/03/17 04:53 RBC Morph Micro Appear NORMAL (NORMAL) 02/08/17 04:35 Smear Path Review SEE BELOW 02/03/17 04:53 Eos Smear Source URINE 02/02/17 06:00 Eos Smear Total Cells NONE SEEN (NONE SEEN) 02/02/17 06:00 PT 9.9 SECONDS (9.5-11.5) 01/25/17 01:48 INR 0.95 (0.5-1.4) 01/25/17 01:48 Specimen Source Arterial 01/27/17 09:13 Sample Site Right Radial 01/27/17 09:13 pH 7.36 (7.35-7.45) 01/27/17 09:13 pCO2 41.0 mmHg (35.0-45.0) 01/27/17 09:13 pO2 100.0 mmHg (80.0-100.0) 01/27/17 09:13 HCO3 23.2 mEq/L (20.0-26.0) 01/27/17 09:13 Base Excess -2.2 mEq/L (-3.0-3.0) 01/27/17 09:13 O2 Saturation 97.0 % (92.0-100.0) 01/27/17 09:13 Luther Test PASS 01/27/17 09:13 Vent Rate 13 01/27/17 09:13 Inspired O2 30 01/27/17 09:13 Tidal Volume 500 01/27/17 09:13 PEEP 5 01/27/17 09:13 Pressure (ins/psv/peep) N/A 01/26/17 21:00 Critical Value PW 01/27/17 09:13 Sodium 152 mEq/L (136-145) H 02/08/17 04:35 Potassium 3.3 mEq/L (3.5-5.1) L 02/08/17 04:35 Chloride 125 mEq/L (98-107) H 02/08/17 04:35 Carbon Dioxide 27.9 mEq/L (21.0-31.0) 02/08/17 04:35 Anion Gap 2.4 (7.0-16.0) L 02/08/17 04:35 BUN 31 mg/dL (7-25) H 02/08/17 04:35 Creatinine 1.4 mg/dL (0.6-1.2) H 02/08/17 04:35 Est GFR ( Amer) 47.9 ml/min (>90) 02/08/17 04:35 Est GFR (Non-Af Amer) 39.6 ml/min 02/08/17 04:35 BUN/Creatinine Ratio 22.1 02/08/17 04:35 Glucose 150 mg/dL (70-105) H 02/08/17 04:35 POC Glucose 144 MG/DL (70 - 105) H 02/08/17 05:29 Hemoglobin A1c % 6.0 % (4.0-6.0) 01/25/17 01:48 Whole Bld Lactic Acid 1.68 mmol/L (0.60-1.99) 02/03/17 04:53 Uric Acid 4.4 mg/dL (2.3-6.6) 02/02/17 04:19 Calcium 7.9 mg/dL (8.6-10.3) L 02/08/17 04:35 Phosphorus 3.2 mg/dL (2.5-5.0) 02/06/17 04:31 Magnesium 1.9 mg/dL (1.9-2.7) 02/06/17 04:31 Total Bilirubin 0.3 mg/dL (0.3-1.0) 02/06/17 04:31 AST 26 U/L (13-39) 02/06/17 04:31 ALT 17 U/L (7-52) 02/06/17 04:31 Alkaline Phosphatase 70 U/L (34-104) 02/06/17 04:31 Troponin I < 0.01 ng/mL (0.01-0.05) L 01/25/17 01:48 Total Protein 4.6 gm/dL (6.0-8.3) L 02/06/17 04:31 Albumin 2.0 gm/dL (3.7-5.3) L 02/06/17 04:31 Globulin 2.6 gm/dL 02/06/17 04:31 Albumin/Globulin Ratio 0.8 (1.0-1.8) L 02/06/17 04:31 Triglycerides 98 mg/dL (<150) 01/25/17 01:48 Cholesterol 146 mg/dL (<200) 01/25/17 01:48 LDL Cholesterol Direct 37 mg/dL (75-193) L 01/25/17 01:48 HDL Cholesterol 83 mg/dL (23-92) 01/25/17 01:48 TSH 1.45 uIU/ml (0.34-5.60) 01/25/17 01:48 Urine Source RANDOM 02/02/17 06:00 Urine Color BROWN 02/02/17 06:00 Urine Clarity SL. CLOUDY (CLEAR) 02/02/17 06:00 Urine pH 6.0 02/02/17 06:00 Ur Specific [place] 1.025 (1.005-1.030) 02/02/17 06:00 Urine Protein >300 mg/dL (NEGATIVE) H 02/02/17 06:00 Urine Glucose (UA) NEGATIVE mg/dL (NEGATIVE) 02/02/17 06:00 Urine Ketones NEGATIVE mg/dL (NEGATIVE) 02/02/17 06:00 Urine Blood LARGE (NEGATIVE) H 02/02/17 06:00 Urine Nitrate NEGATIVE (NEGATIVE) 02/02/17 06:00 Urine Bilirubin SMALL (NEGATIVE) H 02/02/17 06:00 Urine Urobilinogen 0.2 E.U./dL (0.2 - 1.0) 02/02/17 06:00 Ur Leukocyte Esterase NEGATIVE (NEGATIVE) 02/02/17 06:00 Urine RBC 50-100 /hpf (0-5) H 02/02/17 06:00 Urine WBC 6-10 /hpf (0-5) H 02/02/17 06:00 Ur Epithelial Cells MODERATE /lpf (FEW) 02/02/17 06:00 Amorphous Sediment MANY URATES (NONE SEEN) 02/02/17 06:00 Urine Bacteria MODERATE /hpf (NONE SEEN) 02/02/17 06:00 Ur Random Sodium 59 mmol/L 02/02/17 06:00 Urine Creatinine 129.0 mg/dl (28.0-217.0) 02/02/17 06:00 Vancomycin Trough 6.1 ug/mL (10-20) L 01/29/17 23:03 Random Vancomycin 10.8 ug/mL (5.0-40.0) 02/07/17 04:46 Salicylates < 25.0 mg/L (30.0-100.0) L 01/25/17 01:48 Urine Opiates Screen POSITIVE (NEGATIVE) H 01/25/17 03:00 Acetaminophen < 10.0 ug/mL (10.0-30.0) L 01/25/17 01:48 Ur Barbiturates Screen NEGATIVE (NEGATIVE) 01/25/17 03:00 Ur Phencyclidine Scrn NEGATIVE (NEGATIVE) 01/25/17 03:00 Amphetamines Screen POSITIVE (NEGATIVE) H 01/25/17 03:00 U Methamphetamines Scrn POSITIVE (NEGATIVE) H 01/25/17 03:00 U Benzodiazepines Scrn NEGATIVE (NEGATIVE) 01/25/17 03:00 U Cocaine Metab Screen NEGATIVE (NEGATIVE) 01/25/17 03:00 U Cannabinoids Screen NEGATIVE (NEGATIVE) 01/25/17 03:00 Ethyl Alcohol < 10 mg/dL (0-10) 01/25/17 01:48 RPR NONREACTIVE (NONREACTIVE) 01/25/17 01:48 HIV 1&2 Antibody Screen NEGATIVE (NEG) 01/26/17 05:02 - Physical Exam Vitals and I&O: Vital Signs Temp 98.1 F 02/08/17 04:00 Pulse 116 02/08/17 06:00 Resp 16 02/08/17 06:00 BP 162/80 02/08/17 06:00 Pulse Ox 100 02/08/17 06:00 Intake & Output 02/07/17 02/08/17 02/08/17 18:59 06:59 18:59 Intake Total 1822.5 1100 Output Total 1115 1400 Balance 707.5 -300 Intake: Intake, IV Amount 1722.5 1100 D5-0.45NS 1,000 ml @ 100 1000 mls/hr IV .Q10H ANISH Rx#: [id number] Dextrose 5% 1,000 ml @ 1000 100 mls/hr IV .Q10H ANISH Rx#:[id number] Meropenem 500 mg In 200 100 Sodium Chloride 0.9% 100 ml @ 100 mls/hr IV Q8H ANIHS Rx#:[id number] Potassium Chloride 40 meq 272.5 Lidocaine 1% 20mL Vial 25 mg In Sodium Chloride 0.9% 250 ml @ 68 mls/hr IV X1 ONE Rx#:[id number] Vancomycin HCl 1.25 gm In 250 Sodium Chloride 0.9% 250 ml @ 165 mls/hr IV ONCE ONE Rx#:[id number] Oral 100 0 Output: Drainage 165 200 Left Lower Abdomen 5 100 Right Lower Abdomen 160 100 Urine 950 1200 Other: # Bowel Movements 0 0 Active Medications: Current Medications Clonidine HCl (Catapres) 0.1 mg PO Q4H PRN PRN Reason: sbp >160 and diastolic >100 Stop: 03/31/17 16:11 Last Admin: 01/31/17 17:06 Dose: 0.1 mg Diltiazem HCl (Cardizem) 20 mg IVP Q4HR PRN PRN Reason: HR>120 Stop: 04/02/17 08:57 Last Admin: 02/03/17 21:57 Dose: 20 mg Enalaprilat (Vasotec) 2.5 mg IVP Q4HR PRN PRN Reason: systolic BP >160 Stop: 04/02/17 11:33 Last Admin: 02/07/17 19:59 Dose: 2.5 mg Hydromorphone HCl (Dilaudid) 1 mg IVP Q3H PRN PRN Reason: MODERATE PAIN Stop: 03/26/17 17:55 Last Admin: 02/03/17 16:10 Dose: 1 mg Hydromorphone HCl (Dilaudid) 2 mg IVP Q3H PRN PRN Reason: SEVERE PAIN Stop: 03/26/17 17:56 Last Admin: 02/07/17 22:33 Dose: 2 mg Meropenem 500 mg/ Sodium (Chloride) 100 mls @ 100 mls/hr IV Q8H [facility] [place] Stop: 04/04/17 07:44 Last Admin: 02/08/17 09:26 Dose: 100 mls/hr Fluconazole (Diflucan) 200 mg in 100 mls @ 100 mls/hr IV Q24HR ANISH Stop: 04/07/17 04:59 Last Admin: 02/08/17 05:41 Dose: 100 mls/hr Vancomycin HCl 1.25 gm/ Sodium (Chloride) 250 mls @ 165 mls/hr IV Q24H ANISH Stop: 04/09/17 10:59 Dextrose (D5w) 1,000 mls @ 100 mls/hr IV .Q10H ANISH Stop: 04/08/17 13:44 Last Admin: 02/08/17 02:26 Dose: 100 mls/hr Insulin Aspart (Novolog) 0 units SUBQ Q6HR ANISH PRN Reason: Protocol Stop: 03/28/17 08:59 Last Admin: 02/08/17 05:54 Dose: Not Given Lactobacillus Rhamnosus (Culturelle) 1 each PO DAILY ANISH Stop: 03/29/17 08:59 Last Admin: 02/08/17 09:26 Dose: Not Given Lorazepam (Ativan) 1 mg IVP Q4HR PRN; Protocol PRN Reason: Anxiety Stop: 04/05/17 09:56 Last Admin: 02/07/17 21:13 Dose: 1 mg Metoclopramide HCl (Reglan) 10 mg IVP Q8HR PRN PRN Reason: ileus Stop: 04/05/17 15:01 Last Admin: 02/04/17 16:32 Dose: 10 mg Metoclopramide HCl (Reglan) 10 mg IVP Q6HR ANISH Stop: 04/09/17 11:59 Miscellaneous (Probiotic Screen) 1 ea MC PRN PRN PRN Reason: PROTOCOL Stop: 03/28/17 13:21 Miscellaneous (Vancomycin Iv Per Pharmacy) 1 ea MC PRN ANISH Stop: 04/04/17 05:14 Ondansetron HCl (Zofran) 4 mg IV UD PRN PRN Reason: Nausea / Vomiting Stop: 04/03/17 18:25 Pantoprazole Sodium (Protonix) 40 mg IVP BID ANISH Stop: 04/01/17 16:59 Last Admin: 02/08/17 09:26 Dose: 40 mg Sodium Phosphate (Fleet Enema) 135 ml RC PRN PRN PRN Reason: Constipation Stop: 04/07/17 09:54 - Procedures Procedures: Procedures Procedure Code Date BYPASS STOMACH TO JEJUNUM, OPEN APPROACH [id number] 01/25/17 FUSION OF STOMACH AND BOWEL 45702 01/25/17 INSPECTION OF GASTROINTESTINAL TRACT, OPEN APPROACH [id number] 01/25/17 REMOVAL OF GALLBLADDER 61635 01/25/17 REOPENING OF ABDOMEN 91381 01/25/17 REPAIR STOMACH, OPEN APPROACH [id number] 01/25/17 RESECTION OF GALLBLADDER, OPEN APPROACH [id number] 01/25/17 RESPIRATORY VENTILATION, LESS THAN 24 CONSECUTIVE HOURS [id number] 01/25/17 STOMACH SURGERY PROCEDURE 61379 01/25/17 VENT MGMT INPAT INIT DAY 26058 01/25/17 Assessment/Plan - Problem List Patient Problems: All Active Problems H/O diabetes mellitus (Acute) Z86.39 H/O drug abuse (Acute) Z87.898 H/O: HTN (hypertension) (Acute) Z86.79 POSTCHOLECYSTECTOMY (Acute) UTI (urinary tract infection) (Acute) closeure og gastric perf (Acute) cplacement of new gj (Acute) h/o dementia (Acute) lysisi of adhesions (Acute) r/o sepsis (Acute) s/p surgery (Acute) septic shock (Acute) tachycardia (Acute) Nutritional Asmnt/Malnutr-PDOC - Dietary Evaluation Malnutrition Findings (Please click <Entered> for more info): Nutritional Asmnt/Malnutrition Start: 01/26/17 14: 32 Text: Status: Complete Freq: Document 01/26/17 14:32 GSUN (Rec: 01/26/17 14:51 GSUN [email or web address]) Nutritional Asmnt/Malnutrition Patient General Information Nutritional Screening Consult Diagnosis UTI, leukocytosis maybe reactive versus sepsis Pertinent Medical Hx/Surgical Hx HTN, DM, drug abuse, dementia Subjective Information 71 year old female, homeless. RD consult for BG >180. Pt was NPO at time of visit for CT abdomen/pelvis scan. Pt was agitated and in pain during visit. Pt refused to answer RD questions, repeatedly asked about bowel prep processes, then yelled at RD to leave. Pertinent Medications Dilaudid, Zofran Pertinent Labs 01/25: A1c 6, glucose 319H Nutritional Hx/Data Height 1.73 m Height (Calculated Centimeters) 172.7 Current Weight (lbs) 69.899 kg Weight (Calculated Kilograms) 69.9 Weight (Calculated Grams) 13977.6 [place]ona Body Weight 140lb Weight Status Approriate GI Symptoms Cultural/Ethnic/[employer] Belief Unknown. Usual diet at home Unknown. Estimated Nutritional Goals BEE in Kcals: Using Current wt Calories/Kcals/Kg CBW 70kg Kcals Calculated 1750-2100kcal (25-30kcal/kg, ? possible sepsis) Protein: Using Current wt Protein Calculated 70g (1g/kg) Fluid: ml 1750-2100ml (1ml/kcal) Nutritional Problem 1. Problem Problem Altered nutrition related laboratory values related to Etiology DM aeb Signs/Symptoms: H&P, glucose 319H on adm Intervention/Recommendation Comments 1. NPO at time of visit. Diet advancement per MD, recommend [id number] to promtoe glycemic control. 2. Provide edu on DM as needed . Expected Outcomes/Goals Expected Outcomes/Goals 1. Po [place] to meet 100% of estimated nutritional needs.
[2017-02-08] MEDS: Metoclopramide 5 mg/mL 2mL Vial IVP SCH ×3 (11:28→23:54)
--- NOTE | 2017-02-08 12:05 | Infectious Disease Prog Note ---
Infectious Disease Subjective - Review of Systems Service Date: 02/08/17 Subjective: Doing well. Infectious Disease Objective - Results Result Diagrams: 02/08/17 04:35 02/08/17 04:35 Recent Labs: Laboratory Last Values WBC 15.4 Th/cmm (4.8-10.8) H D 02/08/17 04:35 RBC 3.09 Mil/cmm (3.80-5.20) L 02/08/17 04:35 Hgb 10.2 gm/dL (11.7-16.1) L 02/08/17 04:35 Hct 29.6 % (35.0-45.0) L 02/08/17 04:35 MCV 95.8 fl (81-100) 02/08/17 04:35 MCH 33.1 pg (27.0-31.0) H 02/08/17 04:35 MCHC Differential 34.6 pg (28.0-36.0) 02/08/17 04:35 RDW 13.4 % (11.5-20.0) 02/08/17 04:35 Plt Count 290 Th/cmm (150-400) 02/08/17 04:35 MPV 8.6 fl 02/08/17 04:35 Neutrophils % [employer] 02/04/17 04:39 Band Neutrophils % 4 % (0-10) 02/08/17 04:35 Lymphocytes % [employer] 02/04/17 04:39 Monocytes % [employer] 02/01/17 15:55 Eosinophils % [employer] 02/04/17 04:39 Basophils % [employer] 02/01/17 15:55 Neutrophils (Manual) 84 % (40-80) H 02/08/17 04:35 Lymphocytes 5 % (20-50) L 02/08/17 04:35 Monocytes 3 % (2-10) 02/08/17 04:35 Eosinophils 3 % (0-5) 02/08/17 04:35 Basophils 1 % (0-3) 02/02/17 04:19 Metamyelocytes 2 % (0-0) H 02/02/17 04:19 Myelocytes 2 % 01/31/17 05:40 Atypical Lymphocytes 1 % 02/08/17 04:35 Hypochromia 1+ 02/05/17 04:40 Platelet Estimate ADEQUATE (NORMAL) 02/08/17 04:35 Platelet Morphology NORMAL (NORMAL) 02/08/17 04:35 Polychromasia 1+ 02/05/17 04:40 Anisocytosis 1+ 02/03/17 04:53 RBC Morph Micro Appear NORMAL (NORMAL) 02/08/17 04:35 Smear Path Review SEE BELOW 02/03/17 04:53 Eos Smear Source URINE 02/02/17 06:00 Eos Smear Total Cells NONE SEEN (NONE SEEN) 02/02/17 06:00 PT 9.9 SECONDS (9.5-11.5) 01/25/17 01:48 INR 0.95 (0.5-1.4) 01/25/17 01:48 Specimen Source Arterial 01/27/17 09:13 Sample Site Right Radial 01/27/17 09:13 pH 7.36 (7.35-7.45) 01/27/17 09:13 pCO2 41.0 mmHg (35.0-45.0) 01/27/17 09:13 pO2 100.0 mmHg (80.0-100.0) 01/27/17 09:13 HCO3 23.2 mEq/L (20.0-26.0) 01/27/17 09:13 Base Excess -2.2 mEq/L (-3.0-3.0) 01/27/17 09:13 O2 Saturation 97.0 % (92.0-100.0) 01/27/17 09:13 Luther Test PASS 01/27/17 09:13 Vent Rate 13 01/27/17 09:13 Inspired O2 30 01/27/17 09:13 Tidal Volume 500 01/27/17 09:13 PEEP 5 01/27/17 09:13 Pressure (ins/psv/peep) N/A 01/26/17 21:00 Critical Value PW 01/27/17 09:13 Sodium 152 mEq/L (136-145) H 02/08/17 04:35 Potassium 3.3 mEq/L (3.5-5.1) L 02/08/17 04:35 Chloride 125 mEq/L (98-107) H 02/08/17 04:35 Carbon Dioxide 27.9 mEq/L (21.0-31.0) 02/08/17 04:35 Anion Gap 2.4 (7.0-16.0) L 02/08/17 04:35 BUN 31 mg/dL (7-25) H 02/08/17 04:35 Creatinine 1.4 mg/dL (0.6-1.2) H 02/08/17 04:35 Est GFR ( Amer) 47.9 ml/min (>90) 02/08/17 04:35 Est GFR (Non-Af Amer) 39.6 ml/min 02/08/17 04:35 BUN/Creatinine Ratio 22.1 02/08/17 04:35 Glucose 150 mg/dL (70-105) H 02/08/17 04:35 POC Glucose 144 MG/DL (70 - 105) H 02/08/17 05:29 Hemoglobin A1c % 6.0 % (4.0-6.0) 01/25/17 01:48 Whole Bld Lactic Acid 1.68 mmol/L (0.60-1.99) 02/03/17 04:53 Uric Acid 4.4 mg/dL (2.3-6.6) 02/02/17 04:19 Calcium 7.9 mg/dL (8.6-10.3) L 02/08/17 04:35 Phosphorus 3.2 mg/dL (2.5-5.0) 02/06/17 04:31 Magnesium 1.9 mg/dL (1.9-2.7) 02/06/17 04:31 Total Bilirubin 0.3 mg/dL (0.3-1.0) 02/06/17 04:31 AST 26 U/L (13-39) 02/06/17 04:31 ALT 17 U/L (7-52) 02/06/17 04:31 Alkaline Phosphatase 70 U/L (34-104) 02/06/17 04:31 Troponin I < 0.01 ng/mL (0.01-0.05) L 01/25/17 01:48 Total Protein 4.6 gm/dL (6.0-8.3) L 02/06/17 04:31 Albumin 2.0 gm/dL (3.7-5.3) L 02/06/17 04:31 Globulin 2.6 gm/dL 02/06/17 04:31 Albumin/Globulin Ratio 0.8 (1.0-1.8) L 02/06/17 04:31 Triglycerides 98 mg/dL (<150) 01/25/17 01:48 Cholesterol 146 mg/dL (<200) 01/25/17 01:48 LDL Cholesterol Direct 37 mg/dL (75-193) L 01/25/17 01:48 HDL Cholesterol 83 mg/dL (23-92) 01/25/17 01:48 TSH 1.45 uIU/ml (0.34-5.60) 01/25/17 01:48 Urine Source RANDOM 02/02/17 06:00 Urine Color BROWN 02/02/17 06:00 Urine Clarity SL. CLOUDY (CLEAR) 02/02/17 06:00 Urine pH 6.0 02/02/17 06:00 Ur Specific [place] 1.025 (1.005-1.030) 02/02/17 06:00 Urine Protein >300 mg/dL (NEGATIVE) H 02/02/17 06:00 Urine Glucose (UA) NEGATIVE mg/dL (NEGATIVE) 02/02/17 06:00 Urine Ketones NEGATIVE mg/dL (NEGATIVE) 02/02/17 06:00 Urine Blood LARGE (NEGATIVE) H 02/02/17 06:00 Urine Nitrate NEGATIVE (NEGATIVE) 02/02/17 06:00 Urine Bilirubin SMALL (NEGATIVE) H 02/02/17 06:00 Urine Urobilinogen 0.2 E.U./dL (0.2 - 1.0) 02/02/17 06:00 Ur Leukocyte Esterase NEGATIVE (NEGATIVE) 02/02/17 06:00 Urine RBC 50-100 /hpf (0-5) H 02/02/17 06:00 Urine WBC 6-10 /hpf (0-5) H 02/02/17 06:00 Ur Epithelial Cells MODERATE /lpf (FEW) 02/02/17 06:00 Amorphous Sediment MANY URATES (NONE SEEN) 02/02/17 06:00 Urine Bacteria MODERATE /hpf (NONE SEEN) 02/02/17 06:00 Ur Random Sodium 59 mmol/L 02/02/17 06:00 Urine Creatinine 129.0 mg/dl (28.0-217.0) 02/02/17 06:00 Vancomycin Trough 13.9 ug/mL (10-20) 02/08/17 10:00 Random Vancomycin 10.8 ug/mL (5.0-40.0) 02/07/17 04:46 Salicylates < 25.0 mg/L (30.0-100.0) L 01/25/17 01:48 Urine Opiates Screen POSITIVE (NEGATIVE) H 01/25/17 03:00 Acetaminophen < 10.0 ug/mL (10.0-30.0) L 01/25/17 01:48 Ur Barbiturates Screen NEGATIVE (NEGATIVE) 01/25/17 03:00 Ur Phencyclidine Scrn NEGATIVE (NEGATIVE) 01/25/17 03:00 Amphetamines Screen POSITIVE (NEGATIVE) H 01/25/17 03:00 U Methamphetamines Scrn POSITIVE (NEGATIVE) H 01/25/17 03:00 U Benzodiazepines Scrn NEGATIVE (NEGATIVE) 01/25/17 03:00 U Cocaine Metab Screen NEGATIVE (NEGATIVE) 01/25/17 03:00 U Cannabinoids Screen NEGATIVE (NEGATIVE) 01/25/17 03:00 Ethyl Alcohol < 10 mg/dL (0-10) 01/25/17 01:48 RPR NONREACTIVE (NONREACTIVE) 01/25/17 01:48 HIV 1&2 Antibody Screen NEGATIVE (NEG) 01/26/17 05:02 - Physical Exam Vitals and I&O: Vital Signs Temp 98.1 F 02/08/17 04:00 Pulse 116 02/08/17 06:00 Resp 16 02/08/17 06:00 BP 162/80 02/08/17 06:00 Pulse Ox 100 02/08/17 06:00 Intake & Output 02/07/17 02/08/17 02/08/17 18:59 06:59 18:59 Intake Total 1822.5 1100 Output Total 1115 1400 Balance 707.5 -300 Intake: Intake, IV Amount 1722.5 1100 D5-0.45NS 1,000 ml @ 100 1000 mls/hr IV .Q10H ANISH Rx#: [id number] Dextrose 5% 1,000 ml @ 1000 100 mls/hr IV .Q10H ANISH Rx#:[id number] Meropenem 500 mg In 200 100 Sodium Chloride 0.9% 100 ml @ 100 mls/hr IV Q8H ANISH Rx#:[id number] Potassium Chloride 40 meq 272.5 Lidocaine 1% 20mL Vial 25 mg In Sodium Chloride 0.9% 250 ml @ 68 mls/hr IV X1 ONE Rx#:[id number] Vancomycin HCl 1.25 gm In 250 Sodium Chloride 0.9% 250 ml @ 165 mls/hr IV ONCE ONE Rx#:[id number] Oral 100 0 Output: Drainage 165 200 Left Lower Abdomen 5 100 Right Lower Abdomen 160 100 Urine 950 1200 Other: # Bowel Movements 0 0 Active Medications: Current Medications Clonidine HCl (Catapres) 0.1 mg PO Q4H PRN PRN Reason: sbp >160 and diastolic >100 Stop: 03/31/17 16:11 Last Admin: 01/31/17 17:06 Dose: 0.1 mg Diltiazem HCl (Cardizem) 20 mg IVP Q4HR PRN PRN Reason: HR>120 Stop: 04/02/17 08:57 Last Admin: 02/03/17 21:57 Dose: 20 mg Enalaprilat (Vasotec) 2.5 mg IVP Q4HR PRN PRN Reason: systolic BP >160 Stop: 04/02/17 11:33 Last Admin: 02/07/17 19:59 Dose: 2.5 mg Hydromorphone HCl (Dilaudid) 1 mg IVP Q3H PRN PRN Reason: MODERATE PAIN Stop: 03/26/17 17:55 Last Admin: 02/03/17 16:10 Dose: 1 mg Hydromorphone HCl (Dilaudid) 2 mg IVP Q3H PRN PRN Reason: SEVERE PAIN Stop: 03/26/17 17:56 Last Admin: 02/07/17 22:33 Dose: 2 mg Meropenem 500 mg/ Sodium (Chloride) 100 mls @ 100 mls/hr IV Q8H [facility] Stop: 04/04/17 07:44 Last Admin: 02/08/17 09:26 Dose: 100 mls/hr Fluconazole (Diflucan) 200 mg in 100 mls @ 100 mls/hr IV Q24HR [facility] Stop: 04/07/17 04:59 Last Admin: 02/08/17 05:41 Dose: 100 mls/hr Vancomycin HCl 1.25 gm/ Sodium (Chloride) 250 mls @ 165 mls/hr IV Q24H [facility] Stop: 04/09/17 10:59 Last Admin: 02/08/17 11:26 Dose: 165 mls/hr Dextrose (D5w) 1,000 mls @ 100 mls/hr IV .Q10H [facility] Stop: 04/08/17 13:44 Last Admin: 02/08/17 02:26 Dose: 100 mls/hr Insulin Aspart (Novolog) 0 units SUBQ Q6HR ANISH PRN Reason: Protocol Stop: 03/28/17 08:59 Last Admin: 02/08/17 05:54 Dose: Not Given Lactobacillus Rhamnosus (Culturelle) 1 each PO DAILY [facility] Stop: 03/29/17 08:59 Last Admin: 02/08/17 09:26 Dose: Not Given Lorazepam (Ativan) 1 mg IVP Q4HR PRN; Protocol PRN Reason: Anxiety Stop: 04/05/17 09:56 Last Admin: 02/07/17 21:13 Dose: 1 mg Metoclopramide HCl (Reglan) 10 mg IVP Q8HR PRN PRN Reason: ileus Stop: 04/05/17 15:01 Last Admin: 02/04/17 16:32 Dose: 10 mg Metoclopramide HCl (Reglan) 10 mg IVP Q6HR [facility] Stop: 04/09/17 11:59 Last Admin: 02/08/17 11:28 Dose: 10 mg Miscellaneous (Probiotic Screen) 1 ea MC PRN PRN PRN Reason: PROTOCOL Stop: 03/28/17 13:21 Miscellaneous (Vancomycin Iv Per Pharmacy) 1 ea MC PRN [facility] Stop: 04/04/17 05:14 Ondansetron HCl (Zofran) 4 mg IV UD PRN PRN Reason: Nausea / Vomiting Stop: 04/03/17 18:25 Pantoprazole Sodium (Protonix) 40 mg IVP BID [facility] Stop: 04/01/17 16:59 Last Admin: 02/08/17 09:26 Dose: 40 mg Sodium Phosphate (Fleet Enema) 135 ml RC PRN PRN PRN Reason: Constipation Stop: 04/07/17 09:54 General: no acute distress, well developed, well nourished HEENT: atraumatic, normocephalic, PERRLA, EOMI Neck: supple Cardiovascular: S1S2, regular Lungs: clear to auscultation bilaterally, clear to percussion Abdomen: soft, no tender, no distended Extremities: no cyanosis, no clubbing, no edema Neurological: awake, alert, oriented - Procedures Procedures: Procedures Procedure Code Date BYPASS STOMACH TO JEJUNUM, OPEN APPROACH [id number] 01/25/17 FUSION OF STOMACH AND BOWEL 28833 01/25/17 INSPECTION OF GASTROINTESTINAL TRACT, OPEN APPROACH [id number] 01/25/17 REMOVAL OF GALLBLADDER 64306 01/25/17 REOPENING OF ABDOMEN 58620 01/25/17 REPAIR STOMACH, OPEN APPROACH [id number] 01/25/17 RESECTION OF GALLBLADDER, OPEN APPROACH [id number] 01/25/17 RESPIRATORY VENTILATION, LESS THAN 24 CONSECUTIVE HOURS [id number] 01/25/17 STOMACH SURGERY PROCEDURE 58861 01/25/17 VENT MGMT INPAT INIT DAY 16089 01/25/17 Infectious Disease Assmt/Plan - Problem List Patient Problems: All Active Problems H/O diabetes mellitus (Acute) Z86.39 H/O drug abuse (Acute) Z87.898 H/O: HTN (hypertension) (Acute) Z86.79 POSTCHOLECYSTECTOMY (Acute) UTI (urinary tract infection) (Acute) closeure og gastric perf (Acute) cplacement of new gj (Acute) h/o dementia (Acute) lysisi of adhesions (Acute) r/o sepsis (Acute) s/p surgery (Acute) septic shock (Acute) tachycardia (Acute) - Assessment Assessment: 1. Peritonitis. 2. Gastric bypass perforation. 3. S/p exploratory lap X2 and repair anastomotic leak/ perforation and for intra abdominal abscess. 4. UTI. 5. Leukocytosis worse with candidemia. 6. malposition of central line. 7. Intra abdominal abscess. 8. MELECIO improving. - Plan Plan: Continue vanco iv, meropenem and diflucan. Nutritional Asmnt/Malnutr-PDOC - Dietary Evaluation Malnutrition Findings (Please click <Entered> for more info): Nutritional Asmnt/Malnutrition Start: 01/26/17 14: 32 Text: Status: Complete Freq: Document 01/26/17 14:32 GSUN (Rec: 01/26/17 14:51 GSUN [email or web address]) Nutritional Asmnt/Malnutrition Patient General Information Nutritional Screening Consult Diagnosis UTI, leukocytosis maybe reactive versus sepsis Pertinent Medical Hx/Surgical Hx HTN, DM, drug abuse, dementia Subjective Information 71 year old female, homeless. RD consult for BG >180. Pt was NPO at time of visit for CT abdomen/pelvis scan. Pt was agitated and in pain during visit. Pt refused to answer RD questions, repeatedly asked about bowel prep processes, then yelled at RD to leave. Pertinent Medications [place] Pertinent Labs 01/25: A1c 6, glucose 319H Nutritional Hx/Data Height 1.73 m Height (Calculated Centimeters) 172.7 Current Weight (lbs) 69.899 kg Weight (Calculated Kilograms) 69.9 Weight (Calculated Grams) 30565.6 [place] Body Weight 140lb Weight Status Approriate GI Symptoms Cultural/Ethnic/Yarsanism Belief Unknown. Usual diet at home Unknown. Estimated Nutritional Goals BEE in Kcals: Using Current wt Calories/Kcals/Kg CBW 70kg Kcals Calculated 1750-2100kcal (25-30kcal/kg, ? possible sepsis) Protein: Using Current wt Protein Calculated 70g (1g/kg) Fluid: ml 1750-2100ml (1ml/kcal) Nutritional Problem 1. Problem Problem Altered nutrition related laboratory values related to Etiology DM aeb Signs/Symptoms: H&P, glucose 319H on adm Intervention/Recommendation Comments 1. NPO at time of visit. Diet advancement per MD, recommend [id number] to promtoe glycemic control. 2. Provide edu on DM as needed . Expected Outcomes/Goals Expected Outcomes/Goals 1. [place] to meet 100% of estimated nutritional needs.
--- NOTE | 2017-02-08 13:31 | General Progress Note ---
Subjective - Review of Systems Service Date: 02/08/17 Subjective: sleeping, more comfortable Objective - Results Result Diagrams: 02/08/17 04:35 02/08/17 04:35 Recent Labs: Laboratory Last Values WBC 15.4 Th/cmm (4.8-10.8) H D 02/08/17 04:35 RBC 3.09 Mil/cmm (3.80-5.20) L 02/08/17 04:35 Hgb 10.2 gm/dL (11.7-16.1) L 02/08/17 04:35 Hct 29.6 % (35.0-45.0) L 02/08/17 04:35 MCV 95.8 fl (81-100) 02/08/17 04:35 MCH 33.1 pg (27.0-31.0) H 02/08/17 04:35 MCHC Differential 34.6 pg (28.0-36.0) 02/08/17 04:35 RDW 13.4 % (11.5-20.0) 02/08/17 04:35 Plt Count 290 Th/cmm (150-400) 02/08/17 04:35 MPV 8.6 fl 02/08/17 04:35 Neutrophils % ROOM INSPECTOR 02/04/17 04:39 Band Neutrophils % 4 % (0-10) 02/08/17 04:35 Lymphocytes % ROOM INSPECTOR 02/04/17 04:39 Monocytes % ROOM INSPECTOR 02/01/17 15:55 Eosinophils % ROOM INSPECTOR 02/04/17 04:39 Basophils % ROOM INSPECTOR 02/01/17 15:55 Neutrophils (Manual) 84 % (40-80) H 02/08/17 04:35 Lymphocytes 5 % (20-50) L 02/08/17 04:35 Monocytes 3 % (2-10) 02/08/17 04:35 Eosinophils 3 % (0-5) 02/08/17 04:35 Basophils 1 % (0-3) 02/02/17 04:19 Metamyelocytes 2 % (0-0) H 02/02/17 04:19 Myelocytes 2 % 01/31/17 05:40 Atypical Lymphocytes 1 % 02/08/17 04:35 Hypochromia 1+ 02/05/17 04:40 Platelet Estimate ADEQUATE (NORMAL) 02/08/17 04:35 Platelet Morphology NORMAL (NORMAL) 02/08/17 04:35 Polychromasia 1+ 02/05/17 04:40 Anisocytosis 1+ 02/03/17 04:53 RBC Morph Micro Appear NORMAL (NORMAL) 02/08/17 04:35 Smear Path Review SEE BELOW 02/03/17 04:53 Eos Smear Source URINE 02/02/17 06:00 Eos Smear Total Cells NONE SEEN (NONE SEEN) 02/02/17 06:00 PT 9.9 SECONDS (9.5-11.5) 01/25/17 01:48 INR 0.95 (0.5-1.4) 01/25/17 01:48 Specimen Source Arterial 01/27/17 09:13 Sample Site Right Radial 01/27/17 09:13 pH 7.36 (7.35-7.45) 01/27/17 09:13 pCO2 41.0 mmHg (35.0-45.0) 01/27/17 09:13 pO2 100.0 mmHg (80.0-100.0) 01/27/17 09:13 HCO3 23.2 mEq/L (20.0-26.0) 01/27/17 09:13 Base Excess -2.2 mEq/L (-3.0-3.0) 01/27/17 09:13 O2 Saturation 97.0 % (92.0-100.0) 01/27/17 09:13 Luther Test PASS 01/27/17 09:13 Vent Rate 13 01/27/17 09:13 Inspired O2 30 01/27/17 09:13 Tidal Volume 500 01/27/17 09:13 PEEP 5 01/27/17 09:13 Pressure (ins/psv/peep) N/A 01/26/17 21:00 Critical Value PW 01/27/17 09:13 Sodium 152 mEq/L (136-145) H 02/08/17 04:35 Potassium 3.3 mEq/L (3.5-5.1) L 02/08/17 04:35 Chloride 125 mEq/L (98-107) H 02/08/17 04:35 Carbon Dioxide 27.9 mEq/L (21.0-31.0) 02/08/17 04:35 Anion Gap 2.4 (7.0-16.0) L 02/08/17 04:35 BUN 31 mg/dL (7-25) H 02/08/17 04:35 Creatinine 1.4 mg/dL (0.6-1.2) H 02/08/17 04:35 Est GFR ( Amer) 47.9 ml/min (>90) 02/08/17 04:35 Est GFR (Non-Af Amer) 39.6 ml/min 02/08/17 04:35 BUN/Creatinine Ratio 22.1 02/08/17 04:35 Glucose 150 mg/dL (70-105) H 02/08/17 04:35 POC Glucose 143 MG/DL (70 - 105) H 02/08/17 12:21 Hemoglobin A1c % 6.0 % (4.0-6.0) 01/25/17 01:48 Whole Bld Lactic Acid 1.68 mmol/L (0.60-1.99) 02/03/17 04:53 Uric Acid 4.4 mg/dL (2.3-6.6) 02/02/17 04:19 Calcium 7.9 mg/dL (8.6-10.3) L 02/08/17 04:35 Phosphorus 3.2 mg/dL (2.5-5.0) 02/06/17 04:31 Magnesium 1.9 mg/dL (1.9-2.7) 02/06/17 04:31 Total Bilirubin 0.3 mg/dL (0.3-1.0) 02/06/17 04:31 AST 26 U/L (13-39) 02/06/17 04:31 ALT 17 U/L (7-52) 02/06/17 04:31 Alkaline Phosphatase 70 U/L (34-104) 02/06/17 04:31 Troponin I < 0.01 ng/mL (0.01-0.05) L 01/25/17 01:48 Total Protein 4.6 gm/dL (6.0-8.3) L 02/06/17 04:31 Albumin 2.0 gm/dL (3.7-5.3) L 02/06/17 04:31 Globulin 2.6 gm/dL 02/06/17 04:31 Albumin/Globulin Ratio 0.8 (1.0-1.8) L 02/06/17 04:31 Triglycerides 98 mg/dL (<150) 01/25/17 01:48 Cholesterol 146 mg/dL (<200) 01/25/17 01:48 LDL Cholesterol Direct 37 mg/dL (75-193) L 01/25/17 01:48 HDL Cholesterol 83 mg/dL (23-92) 01/25/17 01:48 TSH 1.45 uIU/ml (0.34-5.60) 01/25/17 01:48 Urine Source RANDOM 02/02/17 06:00 Urine Color BROWN 02/02/17 06:00 Urine Clarity SL. CLOUDY (CLEAR) 02/02/17 06:00 Urine pH 6.0 02/02/17 06:00 Ur Specific [place] 1.025 (1.005-1.030) 02/02/17 06:00 Urine Protein >300 mg/dL (NEGATIVE) H 02/02/17 06:00 Urine Glucose (UA) NEGATIVE mg/dL (NEGATIVE) 02/02/17 06:00 Urine Ketones NEGATIVE mg/dL (NEGATIVE) 02/02/17 06:00 Urine Blood LARGE (NEGATIVE) H 02/02/17 06:00 Urine Nitrate NEGATIVE (NEGATIVE) 02/02/17 06:00 Urine Bilirubin SMALL (NEGATIVE) H 02/02/17 06:00 Urine Urobilinogen 0.2 E.U./dL (0.2 - 1.0) 02/02/17 06:00 Ur Leukocyte Esterase NEGATIVE (NEGATIVE) 02/02/17 06:00 Urine RBC 50-100 /hpf (0-5) H 02/02/17 06:00 Urine WBC 6-10 /hpf (0-5) H 02/02/17 06:00 Ur Epithelial Cells MODERATE /lpf (FEW) 02/02/17 06:00 Amorphous Sediment MANY URATES (NONE SEEN) 02/02/17 06:00 Urine Bacteria MODERATE /hpf (NONE SEEN) 02/02/17 06:00 Ur Random Sodium 59 mmol/L 02/02/17 06:00 Urine Creatinine 129.0 mg/dl (28.0-217.0) 02/02/17 06:00 Vancomycin Trough 13.9 ug/mL (10-20) 02/08/17 10:00 Random Vancomycin 10.8 ug/mL (5.0-40.0) 02/07/17 04:46 Salicylates < 25.0 mg/L (30.0-100.0) L 01/25/17 01:48 Urine Opiates Screen POSITIVE (NEGATIVE) H 01/25/17 03:00 Acetaminophen < 10.0 ug/mL (10.0-30.0) L 01/25/17 01:48 Ur Barbiturates Screen NEGATIVE (NEGATIVE) 01/25/17 03:00 Ur Phencyclidine Scrn NEGATIVE (NEGATIVE) 01/25/17 03:00 Amphetamines Screen POSITIVE (NEGATIVE) H 01/25/17 03:00 U Methamphetamines Scrn POSITIVE (NEGATIVE) H 01/25/17 03:00 U Benzodiazepines Scrn NEGATIVE (NEGATIVE) 01/25/17 03:00 U Cocaine Metab Screen NEGATIVE (NEGATIVE) 01/25/17 03:00 U Cannabinoids Screen NEGATIVE (NEGATIVE) 01/25/17 03:00 Ethyl Alcohol < 10 mg/dL (0-10) 01/25/17 01:48 RPR NONREACTIVE (NONREACTIVE) 01/25/17 01:48 HIV 1&2 Antibody Screen NEGATIVE (NEG) 01/26/17 05:02 - Physical Exam Vitals and I&O: Vital Signs Temp 98.1 F 02/08/17 04:00 Pulse 116 02/08/17 06:00 Resp 16 02/08/17 06:00 BP 162/80 02/08/17 06:00 Pulse Ox 96 02/08/17 08:00 Intake & Output 02/07/17 02/08/17 02/08/17 18:59 06:59 18:59 Intake Total 1822.5 1200 100 Output Total 1115 1400 Balance 707.5 -200 100 Intake: Intake, IV Amount 1722.5 1200 100 D5-0.45NS 1,000 ml @ 100 1000 mls/hr IV .Q10H [facility] Rx#: [id number] Dextrose 5% 1,000 ml @ 1000 100 mls/hr IV .Q10H [facility] Rx#:[id number] Fluconazole 200mg/100mL 100 200 mg In 100 ml @ 100 mls/hr IV Q24HR [facility] Rx#: [id number] Meropenem 500 mg In 200 100 100 Sodium Chloride 0.9% 100 ml @ 100 mls/hr IV Q8H [facility] Rx#:[id number] Potassium Chloride 40 meq 272.5 Lidocaine 1% 20mL Vial 25 mg In Sodium Chloride 0.9% 250 ml @ 68 mls/hr IV X1 ONE Rx#:[id number] Vancomycin HCl 1.25 gm In 250 Sodium Chloride 0.9% 250 ml @ 165 mls/hr IV ONCE ONE Rx#:[id number] Oral 100 0 Output: Drainage 165 200 Left Lower Abdomen 5 100 Right Lower Abdomen 160 100 Urine 950 1200 Other: # Bowel Movements 0 0 Active Medications: Current Medications Clonidine HCl (Catapres) 0.1 mg PO Q4H PRN PRN Reason: sbp >160 and diastolic >100 Stop: 03/31/17 16:11 Last Admin: 01/31/17 17:06 Dose: 0.1 mg Diltiazem HCl (Cardizem) 20 mg IVP Q4HR PRN PRN Reason: HR>120 Stop: 04/02/17 08:57 Last Admin: 02/03/17 21:57 Dose: 20 mg Enalaprilat (Vasotec) 2.5 mg IVP Q4HR PRN PRN Reason: systolic BP >160 Stop: 04/02/17 11:33 Last Admin: 02/07/17 19:59 Dose: 2.5 mg Hydromorphone HCl (Dilaudid) 1 mg IVP Q3H PRN PRN Reason: MODERATE PAIN Stop: 03/26/17 17:55 Last Admin: 02/03/17 16:10 Dose: 1 mg Hydromorphone HCl (Dilaudid) 2 mg IVP Q3H PRN PRN Reason: SEVERE PAIN Stop: 03/26/17 17:56 Last Admin: 02/07/17 22:33 Dose: 2 mg Meropenem 500 mg/ Sodium (Chloride) 100 mls @ 100 mls/hr IV Q8H [facility] Stop: 04/04/17 07:44 Last Infusion: 02/08/17 10:30 Dose: Infused Fluconazole (Diflucan) 200 mg in 100 mls @ 100 mls/hr IV Q24HR [facility] Stop: 04/07/17 04:59 Last Infusion: 02/08/17 06:45 Dose: Infused Vancomycin HCl 1.25 gm/ Sodium (Chloride) 250 mls @ 165 mls/hr IV Q24H [facility] Stop: 04/09/17 10:59 Last Admin: 02/08/17 11:26 Dose: 165 mls/hr Dextrose (D5w) 1,000 mls @ 100 mls/hr IV .Q10H [facility] Stop: 04/08/17 13:44 Last Admin: 02/08/17 02:26 Dose: 100 mls/hr Insulin Aspart (Novolog) 0 units SUBQ Q6HR [facility] PRN Reason: Protocol Stop: 03/28/17 08:59 Last Admin: 02/08/17 12:22 Dose: Not Given Lactobacillus Rhamnosus (Culturelle) 1 each PO DAILY [facility] Stop: 03/29/17 08:59 Last Admin: 02/08/17 09:26 Dose: Not Given Lorazepam (Ativan) 1 mg IVP Q4HR PRN; Protocol PRN Reason: Anxiety Stop: 04/05/17 09:56 Last Admin: 02/07/17 21:13 Dose: 1 mg Metoclopramide HCl (Reglan) 10 mg IVP Q8HR PRN PRN Reason: ileus Stop: 04/05/17 15:01 Last Admin: 02/04/17 16:32 Dose: 10 mg Metoclopramide HCl (Reglan) 10 mg IVP Q6HR [facility] Stop: 04/09/17 11:59 Last Admin: 02/08/17 11:28 Dose: 10 mg Miscellaneous (Probiotic Screen) 1 ea PRN PRN PRN Reason: PROTOCOL Stop: 03/28/17 13:21 Miscellaneous (Vancomycin Iv Per Pharmacy) 1 ea PRN [facility] Stop: 04/04/17 05:14 Ondansetron HCl (Zofran) 4 mg IV UD PRN PRN Reason: Nausea / Vomiting Stop: 04/03/17 18:25 Pantoprazole Sodium (Protonix) 40 mg IVP BID [facility] Stop: 04/01/17 16:59 Last Admin: 02/08/17 09:26 Dose: 40 mg Sodium Phosphate (Fleet Enema) 135 ml RC PRN PRN PRN Reason: Constipation Stop: 04/07/17 09:54 General: Mild distress HEENT: Atraumatic, Mucous membr. moist/pink Neck: Supple, +2 carotid pulse wo bruit Cardiovascular: Regular rate, Normal S1, Normal S2 Lungs: Clear to auscultation Abdomen: Bowel sounds, Soft Extremities: no Edema Neurological: Sensation intact Skin: no Rash Psych/Mental Status: Mood NL - Procedures Procedures: Procedures Procedure Code Date BYPASS STOMACH TO JEJUNUM, OPEN APPROACH [id number] 01/25/17 FUSION OF STOMACH AND BOWEL 35901 01/25/17 INSPECTION OF GASTROINTESTINAL TRACT, OPEN APPROACH [id number] 01/25/17 REMOVAL OF GALLBLADDER 31509 01/25/17 REOPENING OF ABDOMEN 11417 01/25/17 REPAIR STOMACH, OPEN APPROACH [id number] 01/25/17 RESECTION OF GALLBLADDER, OPEN APPROACH [id number] 01/25/17 RESPIRATORY VENTILATION, LESS THAN 24 CONSECUTIVE HOURS [id number] 01/25/17 STOMACH SURGERY PROCEDURE 02574 01/25/17 VENT MGMT INPAT INIT DAY 76620 01/25/17 Assessment/Plan - Problem List Patient Problems: All Active Problems H/O diabetes mellitus (Acute) Z86.39 H/O drug abuse (Acute) Z87.898 H/O: HTN (hypertension) (Acute) Z86.79 POSTCHOLECYSTECTOMY (Acute) UTI (urinary tract infection) (Acute) closeure og gastric perf (Acute) cplacement of new gj (Acute) h/o dementia (Acute) lysisi of adhesions (Acute) r/o sepsis (Acute) s/p surgery (Acute) septic shock (Acute) tachycardia (Acute) - Assessment Assessment: MELECIO Septic shock 2nd to acute peritonitis w/ large abcess ruptured viscus S/P exp. lap ALOC 2nd to Met Enceph type 2 DM Alzh Dementia Sinus tach Severe Malnutrition - Plan Plan: Lab - Result Diagrams 02/02/17 04:19 02/02/17 04:19 Current Medications Clonidine HCl (Catapres) 0.1 mg PO Q4H PRN PRN Reason: sbp >160 and diastolic >100 Stop: 03/31/17 16:11 Last Admin: 01/31/17 17:06 Dose: 0.1 mg Diltiazem HCl (Cardizem) 20 mg IVP Q4HR PRN PRN Reason: HR>120 Stop: 04/02/17 08:57 Last Admin: 02/01/17 09:20 Dose: 20 mg Enalaprilat (Vasotec) 2.5 mg IVP Q4HR PRN PRN Reason: systolic BP >160 Stop: 04/02/17 11:33 Hydromorphone HCl (Dilaudid) 1 mg IVP Q3H PRN PRN Reason: MODERATE PAIN Stop: 03/26/17 17:55 Last Admin: 02/02/17 09:14 Dose: 1 mg Hydromorphone HCl (Dilaudid) 2 mg IVP Q3H PRN PRN Reason: SEVERE PAIN Stop: 03/26/17 17:56 Last Admin: 02/02/17 03:40 Dose: 2 mg Metronidazole (Flagyl) 500 mg in 100 mls @ 100 mls/hr IV Q8HR [facility] Stop: 03/28/17 04:59 Last Admin: 02/02/17 13:39 Dose: 100 mls/hr Fluconazole 400mg/200mL (Diflucan) 400 mg in 200 mls @ 100 mls/hr IV Q24HR [facility] Stop: 04/02/17 16:44 Last Infusion: 02/01/17 19:20 Dose: Infused Piperacillin Sod/Tazobactam (Sod 4.5 gm/ Sodium Chloride) 100 mls @ 100 mls/hr IV Q8HR [facility] Stop: 04/02/17 18:29 Last Admin: 02/02/17 12:45 Dose: 100 mls/hr Sodium Chloride (Nacl 0.9%) 1,000 mls @ 100 mls/hr IV .Q10H [facility] Stop: 04/02/17 17:44 Last Admin: 02/02/17 05:55 Dose: 100 mls/hr Insulin Aspart (Novolog) 0 units SUBQ Q6HR [facility] PRN Reason: Protocol Stop: 03/28/17 08:59 Last Admin: 02/02/17 13:40 Dose: 4 units Lactobacillus Rhamnosus (Culturelle) 1 each PO DAILY [facility] Stop: 03/29/17 08:59 Last Admin: 02/02/17 08:56 Dose: Not Given Meperidine HCl (Demerol) 12.5 mg IVP Q2M PRN PRN Reason: POST-OP PAIN Stop: 03/27/17 19:19 Miscellaneous (Vancomycin Iv Per Pharmacy) 1 ea MC PRN [facility] Stop: 03/28/17 02:29 Miscellaneous (Probiotic Screen) 1 ea PRN PRN PRN Reason: PROTOCOL Stop: 03/28/17 13:21 Ondansetron HCl (Zofran) 4 mg IV Q6H PRN PRN Reason: Nausea / Vomiting Stop: 03/26/17 16:27 Last Admin: 01/31/17 17:13 Dose: 4 mg Pantoprazole Sodium (Protonix) 40 mg IVP BID [facility] Stop: 04/01/17 16:59 Last Admin: 02/02/17 08:56 Dose: Not Given WBC down to 15.4 Kidney fnc better, BUN/CR 31/1.4, Na down to 152 continue D5W, start TPN f/u panculture continue Flagyl, Fluconazole, Zosyn f/u electrolytes, cbc Nutritional Asmnt/Malnutr-PDOC - Dietary Evaluation Malnutrition Findings (Please click <Entered> for more info): Nutritional Asmnt/Malnutrition Start: 01/26/17 14: 32 Text: Status: Complete Freq: Document 01/26/17 14:32 GSUN (Rec: 01/26/17 14:51 GSUN [id number]) Nutritional Asmnt/Malnutrition Patient General Information Nutritional Screening Consult Diagnosis UTI, leukocytosis maybe reactive versus sepsis Pertinent Medical Hx/Surgical Hx HTN, DM, drug abuse, dementia Subjective Information 71 year old female, homeless. RD consult for BG >180. Pt was NPO at time of visit for CT abdomen/pelvis scan. Pt was agitated and in pain during visit. Pt refused to answer RD questions, repeatedly asked about bowel prep processes, then yelled at RD to leave. Pertinent Medications Dilaudid, Zofran Pertinent Labs 01/25: A1c 6, glucose 319H Nutritional Hx/Data Height 1.73 m Height (Calculated Centimeters) 172.7 Current Weight (lbs) 69.899 kg Weight (Calculated Kilograms) 69.9 Weight (Calculated Grams) 57455.6 [place] Body Weight 140lb Weight Status Approriate GI Symptoms Cultural/Ethnic/Holiness Belief Unknown. Usual diet at home Unknown. Estimated Nutritional Goals BEE in Kcals: Using Current wt Calories/Kcals/Kg CBW 70kg Kcals Calculated 1750-2100kcal (25-30kcal/kg, ? possible sepsis) Protein: Using Current wt Protein Calculated 70g (1g/kg) Fluid: ml 1750-2100ml (1ml/kcal) Nutritional Problem 1. Problem Problem Altered nutrition related laboratory values related to Etiology DM aeb Signs/Symptoms: H&P, glucose 319H on adm Intervention/Recommendation Comments 1. NPO at time of visit. Diet advancement per MD, recommend [id number] to promtoe glycemic control. 2. Provide edu on DM as needed . Expected Outcomes/Goals Expected Outcomes/Goals 1. [place] to meet 100% of estimated nutritional needs.
[2017-02-08] MEDS ORDERED: Amino Acids 3% / Electrolytes 1,000 ML IV SCH (15:00)
[2017-02-08] MEDS: HYDROmorphone 1 mg/mL 1mL Syr IVP PRN (19:57)
--- NOTE | 2017-02-08 20:39 | Progress Notes ---
SUBJECTIVE: The patient was seen in her room. The patient is a poor historian. Episodes of confusion according to the nurses. Currently on bilateral mittens for safety. OBJECTIVE: HEENT: Head is atraumatic, normocephalic. Eyes: Bilateral conjunctivae are clear from injections. NECK: Supple. No JVD. CARDIOVASCULAR: S1 and S2 heard without murmur. Sinus tach on the monitor. GI: Soft and nontender, but hypoactive. Bilateral JPs intact with serosanguineous drainage. PULMONARY: Clear to auscultation. MUSCULOSKELETAL: No edema, no weakness noted. ASSESSMENT: 1. Sepsis. 2. Perforated viscus. 3. Status post exploratory laparotomy. 5. Diabetes. 6. Hypertension. 7. Renal failure. PLAN: We will continue the patient to be monitored in ICU. We will follow up with the surgical consult for the patient's monitoring and also follow up with ID doctor for IV antibiotic management. JOB# [id number]
[2017-02-09] MEDS: HYDROmorphone 1 mg/mL 1mL Syr IVP PRN (03:53)
[2017-02-09] MEDS: Fluconazole 200 mg/100 mL Premix Bag IV SCH (04:52)
[2017-02-09 05:04] LABS: HEMATOCRIT 28.9 % (35.0-45.0); HEMOGLOBIN 9.9 gm/dL (11.7-16.1); MEAN CELL VOLUME 96.1 fl (81-100); MEAN CORPUSCULAR HEMOGLOBIN 32.8 pg (27.0-31.0); MEAN CORPUSCULAR HGB CONC 34.1 pg (28.0-36.0); PLATELET COUNT 293 Th/cmm (150-400); RED BLOOD COUNT 3.01 Mil/cmm (3.80-5.20); RED CELL DISTRIBUTION WIDTH 13.6 % (11.5-20.0)
[2017-02-09 05:18] LABS: WHITE BLOOD COUNT 15.3 Th/cmm (4.8-10.8)
[2017-02-09 05:22] LABS: ANION GAP 4.4 (7.0-16.0); BUN/CREATININE RATIO 18.5; CALCIUM SERUM 7.7 mg/dL (8.6-10.3); CARBON DIOXIDE 28.9 mEq/L (21.0-31.0); CREATININE - SERUM 1.3 mg/dL (0.6-1.2); MAGNESIUM 1.5 mg/dL (1.9-2.7); PHOSPHOROUS 2.6 mg/dL (2.5-5.0); POTASSIUM SERUM 3.3 mEq/L (3.5-5.1)
[2017-02-09 05:23] LABS: ALB/GLOB RATIO 0.7 (1.0-1.8); BILIRUBIN,DIRECT 0.1 mg/dL (0.0-0.2); BILIRUBIN,TOTAL 0.3 mg/dL (0.3-1.0)
[2017-02-09] MEDS: Metoclopramide 5 mg/mL 2mL Vial IVP SCH ×3 (05:30→17:12)
[2017-02-09] MEDS: INSULIN ASPART, RECOMBINANT 100 UNITS/ML SUBQ SCH ×3 (05:55→17:54)
[2017-02-09 08:50] LABS: BAND NEUTROPHILE 6 % (0-10); EOSINOPHIL 1 % (0-5); NEUTROPHILS 84 % (40-80); TOTAL CELLS COUNTED 100
[2017-02-09 08:51] LABS: ANISOCYTOSIS 1+; PLATELET ESTIMATE ADEQUATE (NORMAL); PLATELET MORPHOLOGY NORMAL (NORMAL)
[2017-02-09] MEDS: Meropenem 500 MG in Sodium Chloride 0.9% 100 ML IV SCH ×2 (08:55→17:13)
[2017-02-09] MEDS ORDERED: Mag Sulfate 2gm/50mL Premix 2 GM/50 ML BAG IV ONE (09:00)
[2017-02-09] MEDS: Lactobacillus Rhamnosus 10 Billion CFU Capsule PO SCH (09:50)
[2017-02-09] MEDS ORDERED: Fleet Enema 135 mL RC ONE ×2 (12:00→17:14)
--- NOTE | 2017-02-09 14:20 | Diagnostic Imaging Report ---
KUB abdominal film (2 views, including left lateral decubitus view) HISTORY: Pain, surgery The exam demonstrates residual contrast within nondilated ascending colon. Surgical drains project over the abdomen and upper pelvis. No obvious free intraperitoneal air. IMPRESSION: 1. Residual contrast within nondilated ascending colon and an otherwise nonspecific appearance. 2. Surgical changes
--- NOTE | 2017-02-09 14:27 | General Progress Note ---
Subjective - Review of Systems Service Date: 02/09/17 Subjective: sleeping, arousable, more comfortable Objective - Results Result Diagrams: 02/09/17 04:21 02/09/17 04:21 Recent Labs: Laboratory Last Values WBC 15.3 Th/cmm (4.8-10.8) H 02/09/17 04:21 RBC 3.01 Mil/cmm (3.80-5.20) L 02/09/17 04:21 Hgb 9.9 gm/dL (11.7-16.1) L 02/09/17 04:21 Hct 28.9 % (35.0-45.0) L 02/09/17 04:21 MCV 96.1 fl (81-100) 02/09/17 04:21 MCH 32.8 pg (27.0-31.0) H 02/09/17 04:21 MCHC Differential 34.1 pg (28.0-36.0) 02/09/17 04:21 RDW 13.6 % (11.5-20.0) 02/09/17 04:21 Plt Count 293 Th/cmm (150-400) 02/09/17 04:21 MPV 9.0 fl 02/09/17 04:21 Neutrophils % [employer] 02/04/17 04:39 Band Neutrophils % 6 % (0-10) 02/09/17 04:21 Lymphocytes % [employer] 02/04/17 04:39 Monocytes % [employer] MA[employer]GER 02/01/17 15:55 Eosinophils % [employer] MA[employer] 02/04/17 04:39 Basophils % [employer] 02/01/17 15:55 Neutrophils (Manual) 84 % (40-80) H 02/09/17 04:21 Lymphocytes 7 % (20-50) L 02/09/17 04:21 Monocytes 2 % (2-10) 02/09/17 04:21 Eosinophils 1 % (0-5) 02/09/17 04:21 Basophils 1 % (0-3) 02/02/17 04:19 Metamyelocytes 2 % (0-0) H 02/02/17 04:19 Myelocytes 2 % 01/31/17 05:40 Atypical Lymphocytes 1 % 02/08/17 04:35 Hypochromia 1+ 02/05/17 04:40 Platelet Estimate ADEQUATE (NORMAL) 02/09/17 04:21 Platelet Morphology NORMAL (NORMAL) 02/09/17 04:21 Polychromasia 1+ 02/05/17 04:40 Anisocytosis 1+ 02/09/17 04:21 RBC Morph Micro Appear ABNORMAL (NORMAL) 02/09/17 04:21 Smear Path Review SEE BELOW 02/03/17 04:53 Eos Smear Source URINE 02/02/17 06:00 Eos Smear Total Cells NONE SEEN (NONE SEEN) 02/02/17 06:00 PT 9.9 SECONDS (9.5-11.5) 01/25/17 01:48 INR 0.95 (0.5-1.4) 01/25/17 01:48 Specimen Source Arterial 01/27/17 09:13 Sample Site Right Radial 01/27/17 09:13 pH 7.36 (7.35-7.45) 01/27/17 09:13 pCO2 41.0 mmHg (35.0-45.0) 01/27/17 09:13 pO2 100.0 mmHg (80.0-100.0) 01/27/17 09:13 HCO3 23.2 mEq/L (20.0-26.0) 01/27/17 09:13 Base Excess -2.2 mEq/L (-3.0-3.0) 01/27/17 09:13 O2 Saturation 97.0 % (92.0-100.0) 01/27/17 09:13 Luther Test PASS 01/27/17 09:13 Vent Rate 13 01/27/17 09:13 Inspired O2 30 01/27/17 09:13 Tidal Volume 500 01/27/17 09:13 PEEP 5 01/27/17 09:13 Pressure (ins/psv/peep) N/A 01/26/17 21:00 Critical Value PW 01/27/17 09:13 Sodium 149 mEq/L (136-145) H 02/09/17 04:21 Potassium 3.3 mEq/L (3.5-5.1) L 02/09/17 04:21 Chloride 119 mEq/L (98-107) H 02/09/17 04:21 Carbon Dioxide 28.9 mEq/L (21.0-31.0) 02/09/17 04:21 Anion Gap 4.4 (7.0-16.0) L 02/09/17 04:21 BUN 24 mg/dL (7-25) 02/09/17 04:21 Creatinine 1.3 mg/dL (0.6-1.2) H 02/09/17 04:21 Est GFR ( Amer) 52.2 ml/min (>90) 02/09/17 04:21 Est GFR (Non-Af Amer) 43.2 ml/min 02/09/17 04:21 BUN/Creatinine Ratio 18.5 02/09/17 04:21 Glucose 154 mg/dL (70-105) H 02/09/17 04:21 POC Glucose 180 MG/DL (70 - 105) H 02/09/17 12:30 Hemoglobin A1c % 6.0 % (4.0-6.0) 01/25/17 01:48 Whole Bld Lactic Acid 1.68 mmol/L (0.60-1.99) 02/03/17 04:53 Uric Acid 4.4 mg/dL (2.3-6.6) 02/02/17 04:19 Calcium 7.7 mg/dL (8.6-10.3) L 02/09/17 04:21 Phosphorus 2.6 mg/dL (2.5-5.0) 02/09/17 04:21 Magnesium 1.5 mg/dL (1.9-2.7) L 02/09/17 04:21 Total Bilirubin 0.3 mg/dL (0.3-1.0) 02/09/17 04:21 Direct Bilirubin 0.10 mg/dL (0.0-0.2) 02/09/17 04:21 AST 26 U/L (13-39) 02/09/17 04:21 ALT 18 U/L (7-52) 02/09/17 04:21 Alkaline Phosphatase 126 U/L (34-104) H 02/09/17 04:21 Troponin I < 0.01 ng/mL (0.01-0.05) L 01/25/17 01:48 Total Protein 4.5 gm/dL (6.0-8.3) L 02/09/17 04:21 Albumin 1.8 gm/dL (3.7-5.3) L 02/09/17 04:21 Globulin 2.7 gm/dL 02/09/17 04:21 Albumin/Globulin Ratio 0.7 (1.0-1.8) L 02/09/17 04:21 Triglycerides 120 mg/dL (<150) 02/09/17 04:21 Cholesterol 60 mg/dL (<200) 02/09/17 04:21 LDL Cholesterol Direct 37 mg/dL (75-193) L 01/25/17 01:48 HDL Cholesterol 83 mg/dL (23-92) 01/25/17 01:48 TSH 1.45 uIU/ml (0.34-5.60) 01/25/17 01:48 Urine Source RANDOM 02/02/17 06:00 Urine Color BROWN 02/02/17 06:00 Urine Clarity SL. CLOUDY (CLEAR) 02/02/17 06:00 Urine pH 6.0 02/02/17 06:00 Ur Specific [place] 1.025 (1.005-1.030) 02/02/17 06:00 Urine Protein >300 mg/dL (NEGATIVE) H 02/02/17 06:00 Urine Glucose (UA) NEGATIVE mg/dL (NEGATIVE) 02/02/17 06:00 Urine Ketones NEGATIVE mg/dL (NEGATIVE) 02/02/17 06:00 Urine Blood LARGE (NEGATIVE) H 02/02/17 06:00 Urine Nitrate NEGATIVE (NEGATIVE) 02/02/17 06:00 Urine Bilirubin SMALL (NEGATIVE) H 02/02/17 06:00 Urine Urobilinogen 0.2 E.U./dL (0.2 - 1.0) 02/02/17 06:00 Ur Leukocyte Esterase NEGATIVE (NEGATIVE) 02/02/17 06:00 Urine RBC 50-100 /hpf (0-5) H 02/02/17 06:00 Urine WBC 6-10 /hpf (0-5) H 02/02/17 06:00 Ur Epithelial Cells MODERATE /lpf (FEW) 02/02/17 06:00 Amorphous Sediment MANY URATES (NONE SEEN) 02/02/17 06:00 Urine Bacteria MODERATE /hpf (NONE SEEN) 02/02/17 06:00 Ur Random Sodium 59 mmol/L 02/02/17 06:00 Urine Creatinine 129.0 mg/dl (28.0-217.0) 02/02/17 06:00 Vancomycin Trough 13.9 ug/mL (10-20) 02/08/17 10:00 Random Vancomycin 10.8 ug/mL (5.0-40.0) 02/07/17 04:46 Salicylates < 25.0 mg/L (30.0-100.0) L 01/25/17 01:48 Urine Opiates Screen POSITIVE (NEGATIVE) H 01/25/17 03:00 Acetaminophen < 10.0 ug/mL (10.0-30.0) L 01/25/17 01:48 Ur Barbiturates Screen NEGATIVE (NEGATIVE) 01/25/17 03:00 Ur Phencyclidine Scrn NEGATIVE (NEGATIVE) 01/25/17 03:00 Amphetamines Screen POSITIVE (NEGATIVE) H 01/25/17 03:00 U Methamphetamines Scrn POSITIVE (NEGATIVE) H 01/25/17 03:00 U Benzodiazepines Scrn NEGATIVE (NEGATIVE) 01/25/17 03:00 U Cocaine Metab Screen NEGATIVE (NEGATIVE) 01/25/17 03:00 U Cannabinoids Screen NEGATIVE (NEGATIVE) 01/25/17 03:00 Ethyl Alcohol < 10 mg/dL (0-10) 01/25/17 01:48 RPR NONREACTIVE (NONREACTIVE) 01/25/17 01:48 HIV 1&2 Antibody Screen NEGATIVE (NEG) 01/26/17 05:02 - Physical Exam Vitals and I&O: Vital Signs Temp 97.1 F 02/09/17 08:00 Pulse 105 02/09/17 12:00 Resp 15 02/09/17 12:00 BP 155/80 02/09/17 12:00 Pulse Ox 98 02/09/17 12:00 Intake & Output 02/08/17 02/09/17 02/09/17 18:59 06:59 18:59 Intake Total 1450 1240 Output Total 1700 Balance 1450 -460 Intake: Intake, IV Amount 1450 1200 Dextrose 5% 1,000 ml @ 1000 1000 100 mls/hr IV .Q10H ANISH Rx#:[id number] Fluconazole 200mg/100mL 100 200 mg In 100 ml @ 100 mls/hr IV Q24HR ANISH Rx#: [id number] Meropenem 500 mg In 200 100 Sodium Chloride 0.9% 100 ml @ 100 mls/hr IV Q8H ANISH Rx#:[id number] Vancomycin HCl 1.25 gm In 250 Sodium Chloride 0.9% 250 ml @ 165 mls/hr IV Q24H ANISH Rx#:[id number] Oral 40 Output: Drainage 350 Left Lower Abdomen 160 Right Lower Abdomen 190 Urine 1350 Other: # Bowel Movements 0 Active Medications: Current Medications Clonidine HCl (Catapres) 0.1 mg PO Q4H PRN PRN Reason: sbp >160 and diastolic >100 Stop: 03/31/17 16:11 Last Admin: 01/31/17 17:06 Dose: 0.1 mg Diltiazem HCl (Cardizem) 20 mg IVP Q4HR PRN PRN Reason: HR>120 Stop: 04/02/17 08:57 Last Admin: 02/03/17 21:57 Dose: 20 mg Enalaprilat (Vasotec) 2.5 mg IVP Q4HR PRN PRN Reason: systolic BP >160 Stop: 04/02/17 11:33 Last Admin: 02/07/17 19:59 Dose: 2.5 mg Meropenem 500 mg/ Sodium (Chloride) 100 mls @ 100 mls/hr IV Q8H [facility] Stop: 04/04/17 07:44 Last Admin: 02/09/17 08:55 Dose: 100 mls/hr Fluconazole (Diflucan) 200 mg in 100 mls @ 100 mls/hr IV Q24HR [facility] Stop: 04/07/17 04:59 Last Infusion: 02/09/17 05:53 Dose: Infused Vancomycin HCl 1.25 gm/ Sodium (Chloride) 250 mls @ 165 mls/hr IV Q24H [facility] Stop: 04/09/17 10:59 Last Admin: 02/09/17 12:37 Dose: 165 mls/hr Dextrose (D5w) 1,000 mls @ 100 mls/hr IV .Q10H [facility] Stop: 02/09/17 14:59 Last Infusion: 02/09/17 03:57 Dose: Infused Multivitamins/Minerals 10 ml/Amino Acids/Electrolytes/Dextrose/ Fat Emulsion Intravenous 1,200 mls @ 50 mls/hr IV .Q24H [facility] Stop: 04/10/17 14:59 Dextrose (D5w) 1,000 mls @ 50 mls/hr IV .Q20H [facility] Stop: 04/10/17 14:59 Insulin Aspart (Novolog) 0 units SUBQ Q6HR ANISH PRN Reason: Protocol Stop: 03/28/17 08:59 Last Admin: 02/09/17 12:37 Dose: 2 units Lactobacillus Rhamnosus (Culturelle) 1 each PO DAILY ANISH Stop: 03/29/17 08:59 Last Admin: 02/09/17 09:50 Dose: Not Given Lorazepam (Ativan) 1 mg IVP Q4HR PRN; Protocol PRN Reason: Anxiety Stop: 04/05/17 09:56 Last Admin: 02/07/17 21:13 Dose: 1 mg Metoclopramide HCl (Reglan) 10 mg IVP Q6HR ANISH Stop: 04/09/17 11:59 Last Admin: 02/09/17 12:37 Dose: 10 mg Miscellaneous (Probiotic Screen) 1 ea PRN PRN PRN Reason: PROTOCOL Stop: 03/28/17 13:21 Miscellaneous (Vancomycin Iv Per Pharmacy) 1 ea PRN ANISH Stop: 04/04/17 05:14 Miscellaneous (Tpn Per Pharmacy) 1 ea PRN PRN PRN Reason: PROTOCOL Stop: 04/09/17 13:33 Pantoprazole Sodium (Protonix) 40 mg IVP BID ANISH Stop: 04/01/17 16:59 Last Admin: 02/09/17 08:55 Dose: 40 mg Sodium Phosphate (Fleet Enema) 135 ml RC PRN PRN PRN Reason: Constipation Stop: 04/07/17 09:54 General: No acute distress HEENT: Atraumatic, Mucous membr. moist/pink Neck: Supple, +2 carotid pulse wo bruit Cardiovascular: Regular rate, Normal S1, Normal S2 Lungs: Other (few rhonchi) Abdomen: Bowel sounds, Soft Extremities: no Edema Neurological: Sensation intact Skin: no Rash Psych/Mental Status: Mood NL - Procedures Procedures: Procedures Procedure Code Date BYPASS STOMACH TO JEJUNUM, OPEN APPROACH [id number] 01/25/17 FUSION OF STOMACH AND BOWEL 68046 01/25/17 INSPECTION OF GASTROINTESTINAL TRACT, OPEN APPROACH [id number] 01/25/17 REMOVAL OF GALLBLADDER 65446 01/25/17 REOPENING OF ABDOMEN 59162 01/25/17 REPAIR STOMACH, OPEN APPROACH [id number] 01/25/17 RESECTION OF GALLBLADDER, OPEN APPROACH [id number] 01/25/17 RESPIRATORY VENTILATION, LESS THAN 24 CONSECUTIVE HOURS [id number] 01/25/17 STOMACH SURGERY PROCEDURE 67942 01/25/17 [facility] INPAT INIT DAY 02275 01/25/17 Assessment/Plan - Problem List Patient Problems: All Active Problems H/O diabetes mellitus (Acute) Z86.39 H/O drug abuse (Acute) Z87.898 H/O: HTN (hypertension) (Acute) Z86.79 POSTCHOLECYSTECTOMY (Acute) UTI (urinary tract infection) (Acute) closeure og gastric perf (Acute) cplacement of new gj (Acute) h/o dementia (Acute) lysisi of adhesions (Acute) r/o sepsis (Acute) s/p surgery (Acute) septic shock (Acute) tachycardia (Acute) - Assessment Assessment: MELECIO Septic shock 2nd to acute peritonitis w/ large abcess ruptured viscus S/P exp. lap ALOC 2nd to Met Enceph type 2 DM Alzh Dementia Sinus tach Severe Malnutrition Ileus - Plan Plan: Lab - Result Diagrams 02/02/17 04:19 02/02/17 04:19 Current Medications Clonidine HCl (Catapres) 0.1 mg PO Q4H PRN PRN Reason: sbp >160 and diastolic >100 Stop: 03/31/17 16:11 Last Admin: 01/31/17 17:06 Dose: 0.1 mg Diltiazem HCl (Cardizem) 20 mg IVP Q4HR PRN PRN Reason: HR>120 Stop: 04/02/17 08:57 Last Admin: 02/01/17 09:20 Dose: 20 mg Enalaprilat (Vasotec) 2.5 mg IVP Q4HR PRN PRN Reason: systolic BP >160 Stop: 04/02/17 11:33 Hydromorphone HCl (Dilaudid) 1 mg IVP Q3H PRN PRN Reason: MODERATE PAIN Stop: 03/26/17 17:55 Last Admin: 02/02/17 09:14 Dose: 1 mg Hydromorphone HCl (Dilaudid) 2 mg IVP Q3H PRN PRN Reason: SEVERE PAIN Stop: 03/26/17 17:56 Last Admin: 02/02/17 03:40 Dose: 2 mg Metronidazole (Flagyl) 500 mg in 100 mls @ 100 mls/hr IV Q8HR ANISH Stop: 03/28/17 04:59 Last Admin: 02/02/17 13:39 Dose: 100 mls/hr Fluconazole 400mg/200mL (Diflucan) 400 mg in 200 mls @ 100 mls/hr IV Q24HR [facility] Stop: 04/02/17 16:44 Last Infusion: 02/01/17 19:20 Dose: Infused Piperacillin Sod/Tazobactam (Sod 4.5 gm/ Sodium Chloride) 100 mls @ 100 mls/hr IV Q8HR ANISH Stop: 04/02/17 18:29 Last Admin: 02/02/17 12:45 Dose: 100 mls/hr Sodium Chloride (Nacl 0.9%) 1,000 mls @ 100 mls/hr IV .Q10H ANISH Stop: 04/02/17 17:44 Last Admin: 02/02/17 05:55 Dose: 100 mls/hr Insulin Aspart (Novolog) 0 units SUBQ Q6HR ANISH PRN Reason: Protocol Stop: 03/28/17 08:59 Last Admin: 02/02/17 13:40 Dose: 4 units Lactobacillus Rhamnosus (Culturelle) 1 each PO DAILY ANISH Stop: 03/29/17 08:59 Last Admin: 02/02/17 08:56 Dose: Not Given Meperidine HCl (Demerol) 12.5 mg IVP Q2M PRN PRN Reason: POST-OP PAIN Stop: 03/27/17 19:19 Miscellaneous (Vancomycin Iv Per Pharmacy) 1 ea MC PRN [facility] Stop: 03/28/17 02:29 Miscellaneous (Probiotic Screen) 1 [facility] PRN PRN PRN Reason: PROTOCOL Stop: 03/28/17 13:21 Ondansetron HCl (Zofran) 4 mg IV Q6H PRN PRN Reason: Nausea / Vomiting Stop: 03/26/17 16:27 Last Admin: 01/31/17 17:13 Dose: 4 mg Pantoprazole Sodium (Protonix) 40 mg IVP BID [facility] Stop: 04/01/17 16:59 Last Admin: 02/02/17 08:56 Dose: Not Given WBC down to 15.3 Kidney fnc better, BUN/CR 24/1.3, Na down to 149 continue D5W, replace K, Mg f/u panculture continue Flagyl, Fluconazole, Zosyn f/u electrolytes, cbc not tolerating meals, need TPN but poor access, will need PICC line emergently Nutritional Asmnt/Malnutr-PDOC - Dietary Evaluation Malnutrition Findings (Please click <Entered> for more info): Nutritional Asmnt/Malnutrition Start: 01/26/17 14: 32 Text: Status: Complete Freq: Document 01/26/17 14:32 GSUN (Rec: 01/26/17 14:51 GSUN [id number]) Nutritional Asmnt/Malnutrition Patient General Information Nutritional Screening Consult Diagnosis UTI, leukocytosis maybe reactive versus sepsis Pertinent Medical Hx/Surgical Hx HTN, DM, drug abuse, dementia Subjective Information 71 year old female, homeless. RD consult for BG >180. Pt was NPO at time of visit for CT abdomen/pelvis scan. Pt was agitated and in pain during visit. Pt refused to answer RD questions, repeatedly asked about bowel prep processes, then yelled at RD to leave. Pertinent Medications Dilaudid, Zofran Pertinent Labs 01/25: A1c 6, glucose 319H Nutritional Hx/Data Height 1.73 m Height (Calculated Centimeters) 172.7 Current Weight (lbs) 69.899 kg Weight (Calculated Kilograms) 69.9 Weight (Calculated Grams) 58212.6 [place] Body Weight 140lb Weight Status Approriate GI Symptoms Cultural/Ethnic/Hindu Belief Unknown. Usual diet at home Unknown. Estimated Nutritional Goals BEE in Kcals: Using Current wt Calories/Kcals/Kg CBW 70kg Kcals Calculated 1750-2100kcal (25-30kcal/kg, ? possible sepsis) Protein: Using Current wt Protein Calculated 70g (1g/kg) Fluid: ml 1750-2100ml (1ml/kcal) Nutritional Problem 1. Problem Problem Altered nutrition related laboratory values related to Etiology DM aeb Signs/Symptoms: H&P, glucose 319H on adm Intervention/Recommendation Comments 1. NPO at time of visit. Diet advancement per MD, recommend [id number] to promtoe glycemic control. 2. Provide edu on DM as needed . Expected Outcomes/Goals Expected Outcomes/Goals 1. [place] to meet 100% of estimated nutritional needs.
[2017-02-09] MEDS ORDERED: Dextrose 5% 1,000 ML IV SCH (15:00)
[2017-02-09] MEDS ORDERED: HYDROmorphone 2 mg/mL 1mL Vial IVP PRN (16:00)
[2017-02-09] MEDS ORDERED: HYDROmorphone 1 mg/mL 1mL Syr IVP PRN (16:00)
[2017-02-09 16:20] LABS: PROTHROMBIN TIME (TEST) 30.3 SECONDS (9.5-11.5)
--- NOTE | 2017-02-09 16:23 | Internal Medicine Prog Note ---
Internal Medicine Subjective - Subjective Service Date: 02/09/17 Patient seen and examined:: with staff Patient is:: awake, in bed, ambulating, other (trying to walk with PT) Patient Complaints of:: vomitting, other (vomits even water ) Internal Medicine Objective - Results Result Diagrams: 02/09/17 04:21 02/09/17 04:21 Recent Labs: Laboratory Last Values WBC 15.3 Th/cmm (4.8-10.8) H 02/09/17 04:21 RBC 3.01 Mil/cmm (3.80-5.20) L 02/09/17 04:21 Hgb 9.9 gm/dL (11.7-16.1) L 02/09/17 04:21 Hct 28.9 % (35.0-45.0) L 02/09/17 04:21 MCV 96.1 fl (81-100) 02/09/17 04:21 MCH 32.8 pg (27.0-31.0) H 02/09/17 04:21 MCHC Differential 34.1 pg (28.0-36.0) 02/09/17 04:21 RDW 13.6 % (11.5-20.0) 02/09/17 04:21 Plt Count 293 Th/cmm (150-400) 02/09/17 04:21 MPV 9.0 fl 02/09/17 04:21 Neutrophils % CLIP BAKER 02/04/17 04:39 Band Neutrophils % 6 % (0-10) 02/09/17 04:21 Lymphocytes % CLIP BAKER 02/04/17 04:39 Monocytes % CLIP BAKER 02/01/17 15:55 Eosinophils % CLIP BAKER 02/04/17 04:39 Basophils % CLIP BAKER 02/01/17 15:55 Neutrophils (Manual) 84 % (40-80) H 02/09/17 04:21 Lymphocytes 7 % (20-50) L 02/09/17 04:21 Monocytes 2 % (2-10) 02/09/17 04:21 Eosinophils 1 % (0-5) 02/09/17 04:21 Basophils 1 % (0-3) 02/02/17 04:19 Metamyelocytes 2 % (0-0) H 02/02/17 04:19 Myelocytes 2 % 01/31/17 05:40 Atypical Lymphocytes 1 % 02/08/17 04:35 Hypochromia 1+ 02/05/17 04:40 Platelet Estimate ADEQUATE (NORMAL) 02/09/17 04:21 Platelet Morphology NORMAL (NORMAL) 02/09/17 04:21 Polychromasia 1+ 02/05/17 04:40 Anisocytosis 1+ 02/09/17 04:21 RBC Morph Micro Appear ABNORMAL (NORMAL) 02/09/17 04:21 Smear Path Review SEE BELOW 02/03/17 04:53 Eos Smear Source URINE 02/02/17 06:00 Eos Smear Total Cells NONE SEEN (NONE SEEN) 02/02/17 06:00 PT 9.9 SECONDS (9.5-11.5) 01/25/17 01:48 INR 0.95 (0.5-1.4) 01/25/17 01:48 Specimen Source Arterial 01/27/17 09:13 Sample Site Right Radial 01/27/17 09:13 pH 7.36 (7.35-7.45) 01/27/17 09:13 pCO2 41.0 mmHg (35.0-45.0) 01/27/17 09:13 pO2 100.0 mmHg (80.0-100.0) 01/27/17 09:13 HCO3 23.2 mEq/L (20.0-26.0) 01/27/17 09:13 Base Excess -2.2 mEq/L (-3.0-3.0) 01/27/17 09:13 O2 Saturation 97.0 % (92.0-100.0) 01/27/17 09:13 Luther Test PASS 01/27/17 09:13 Vent Rate 13 01/27/17 09:13 Inspired O2 30 01/27/17 09:13 Tidal Volume 500 01/27/17 09:13 PEEP 5 01/27/17 09:13 Pressure (ins/psv/peep) N/A 01/26/17 21:00 Critical Value PW 01/27/17 09:13 Sodium 149 mEq/L (136-145) H 02/09/17 04:21 Potassium 3.3 mEq/L (3.5-5.1) L 02/09/17 04:21 Chloride 119 mEq/L (98-107) H 02/09/17 04:21 Carbon Dioxide 28.9 mEq/L (21.0-31.0) 02/09/17 04:21 Anion Gap 4.4 (7.0-16.0) L 02/09/17 04:21 BUN 24 mg/dL (7-25) 02/09/17 04:21 Creatinine 1.3 mg/dL (0.6-1.2) H 02/09/17 04:21 Est GFR ( Amer) 52.2 ml/min (>90) 02/09/17 04:21 Est GFR (Non-Af Amer) 43.2 ml/min 02/09/17 04:21 BUN/Creatinine Ratio 18.5 02/09/17 04:21 Glucose 154 mg/dL (70-105) H 02/09/17 04:21 POC Glucose 180 MG/DL (70 - 105) H 02/09/17 12:30 Hemoglobin A1c % 6.0 % (4.0-6.0) 01/25/17 01:48 Whole Bld Lactic Acid 1.68 mmol/L (0.60-1.99) 02/03/17 04:53 Uric Acid 4.4 mg/dL (2.3-6.6) 02/02/17 04:19 Calcium 7.7 mg/dL (8.6-10.3) L 02/09/17 04:21 Phosphorus 2.6 mg/dL (2.5-5.0) 02/09/17 04:21 Magnesium 1.5 mg/dL (1.9-2.7) L 02/09/17 04:21 Total Bilirubin 0.3 mg/dL (0.3-1.0) 02/09/17 04:21 Direct Bilirubin 0.10 mg/dL (0.0-0.2) 02/09/17 04:21 AST 26 U/L (13-39) 02/09/17 04:21 ALT 18 U/L (7-52) 02/09/17 04:21 Alkaline Phosphatase 126 U/L (34-104) H 02/09/17 04:21 Troponin I < 0.01 ng/mL (0.01-0.05) L 01/25/17 01:48 Total Protein 4.5 gm/dL (6.0-8.3) L 02/09/17 04:21 Albumin 1.8 gm/dL (3.7-5.3) L 02/09/17 04:21 Globulin 2.7 gm/dL 02/09/17 04:21 Albumin/Globulin Ratio 0.7 (1.0-1.8) L 02/09/17 04:21 Triglycerides 120 mg/dL (<150) 02/09/17 04:21 Cholesterol 60 mg/dL (<200) 02/09/17 04:21 LDL Cholesterol Direct 37 mg/dL (75-193) L 01/25/17 01:48 HDL Cholesterol 83 mg/dL (23-92) 01/25/17 01:48 TSH 1.45 uIU/ml (0.34-5.60) 01/25/17 01:48 Urine Source RANDOM 02/02/17 06:00 Urine Color BROWN 02/02/17 06:00 Urine Clarity SL. CLOUDY (CLEAR) 02/02/17 06:00 Urine pH 6.0 02/02/17 06:00 Ur Specific [place] 1.025 (1.005-1.030) 02/02/17 06:00 Urine Protein >300 mg/dL (NEGATIVE) H 02/02/17 06:00 Urine Glucose (UA) NEGATIVE mg/dL (NEGATIVE) 02/02/17 06:00 Urine Ketones NEGATIVE mg/dL (NEGATIVE) 02/02/17 06:00 Urine Blood LARGE (NEGATIVE) H 02/02/17 06:00 Urine Nitrate NEGATIVE (NEGATIVE) 02/02/17 06:00 Urine Bilirubin SMALL (NEGATIVE) H 02/02/17 06:00 Urine Urobilinogen 0.2 E.U./dL (0.2 - 1.0) 02/02/17 06:00 Ur Leukocyte Esterase NEGATIVE (NEGATIVE) 02/02/17 06:00 Urine RBC 50-100 /hpf (0-5) H 02/02/17 06:00 Urine WBC 6-10 /hpf (0-5) H 02/02/17 06:00 Ur Epithelial Cells MODERATE /lpf (FEW) 02/02/17 06:00 Amorphous Sediment MANY URATES (NONE SEEN) 02/02/17 06:00 Urine Bacteria MODERATE /hpf (NONE SEEN) 02/02/17 06:00 Ur Random Sodium 59 mmol/L 02/02/17 06:00 Urine Creatinine 129.0 mg/dl (28.0-217.0) 02/02/17 06:00 Vancomycin Trough 13.9 ug/mL (10-20) 02/08/17 10:00 Random Vancomycin 10.8 ug/mL (5.0-40.0) 02/07/17 04:46 Salicylates < 25.0 mg/L (30.0-100.0) L 01/25/17 01:48 Urine Opiates Screen POSITIVE (NEGATIVE) H 01/25/17 03:00 Acetaminophen < 10.0 ug/mL (10.0-30.0) L 01/25/17 01:48 Ur Barbiturates Screen NEGATIVE (NEGATIVE) 01/25/17 03:00 Ur Phencyclidine Scrn NEGATIVE (NEGATIVE) 01/25/17 03:00 Amphetamines Screen POSITIVE (NEGATIVE) H 01/25/17 03:00 U Methamphetamines Scrn POSITIVE (NEGATIVE) H 01/25/17 03:00 U Benzodiazepines Scrn NEGATIVE (NEGATIVE) 01/25/17 03:00 U Cocaine Metab Screen NEGATIVE (NEGATIVE) 01/25/17 03:00 U Cannabinoids Screen NEGATIVE (NEGATIVE) 01/25/17 03:00 Ethyl Alcohol < 10 mg/dL (0-10) 01/25/17 01:48 RPR NONREACTIVE (NONREACTIVE) 01/25/17 01:48 HIV 1&2 Antibody Screen NEGATIVE (NEG) 01/26/17 05:02 - Physical Exam Vitals and I&O: Vital Signs Temp 97.1 F 02/09/17 08:00 Pulse 99 02/09/17 14:00 Resp 15 02/09/17 14:00 BP 149/61 02/09/17 14:00 Pulse Ox 99 02/09/17 14:00 Intake & Output 02/08/17 02/09/17 02/09/17 18:59 06:59 18:59 Intake Total 1450 1240 100 Output Total 1700 Balance 1450 -460 100 Intake: Intake, IV Amount 1450 1200 100 Dextrose 5% 1,000 ml @ 1000 1000 100 mls/hr IV .Q10H [facility] Rx#:[id number] Fluconazole 200mg/100mL 100 200 mg In 100 ml @ 100 mls/hr IV Q24HR [facility] Rx#: [id number] Meropenem 500 mg In 200 100 100 Sodium Chloride 0.9% 100 ml @ 100 mls/hr IV Q8H [facility] Rx#:[id number] Vancomycin HCl 1.25 gm In 250 Sodium Chloride 0.9% 250 ml @ 165 mls/hr IV Q24H [facility] Rx#:[id number] Oral 40 Output: Drainage 350 Left Lower Abdomen 160 Right Lower Abdomen 190 Urine 1350 Other: # Bowel Movements 0 Active Medications: Current Medications Clonidine HCl (Catapres) 0.1 mg PO Q4H PRN PRN Reason: sbp >160 and diastolic >100 Stop: 03/31/17 16:11 Last Admin: 01/31/17 17:06 Dose: 0.1 mg Diltiazem HCl (Cardizem) 20 mg IVP Q4HR PRN PRN Reason: HR>120 Stop: 04/02/17 08:57 Last Admin: 02/03/17 21:57 Dose: 20 mg Enalaprilat (Vasotec) 2.5 mg IVP Q4HR PRN PRN Reason: systolic BP >160 Stop: 04/02/17 11:33 Last Admin: 02/07/17 19:59 Dose: 2.5 mg Meropenem 500 mg/ Sodium (Chloride) 100 mls @ 100 mls/hr IV Q8H [facility] Stop: 04/04/17 07:44 Last Infusion: 02/09/17 09:55 Dose: Infused Fluconazole (Diflucan) 200 mg in 100 mls @ 100 mls/hr IV Q24HR [facility] Stop: 04/07/17 04:59 Last Infusion: 02/09/17 05:53 Dose: Infused Multivitamins/Minerals 10 ml/Amino Acids/Electrolytes/Dextrose/ Fat Emulsion Intravenous 1,200 mls @ 50 mls/hr IV .Q24H [facility] Stop: 04/10/17 14:59 Dextrose (D5w) 1,000 mls @ 50 mls/hr IV .Q20H [facility] Stop: 04/10/17 14:59 Vancomycin HCl 1.25 gm/ Sodium (Chloride) 250 mls @ 165 mls/hr IV Q24H [facility] Stop: 04/11/17 08:59 Insulin Aspart (Novolog) 0 units SUBQ Q6HR [facility] PRN Reason: Protocol Stop: 03/28/17 08:59 Last Admin: 02/09/17 12:37 Dose: 2 units Lactobacillus Rhamnosus (Culturelle) 1 each PO DAILY [facility] Stop: 03/29/17 08:59 Last Admin: 02/09/17 09:50 Dose: Not Given Lorazepam (Ativan) 1 mg IVP Q4HR PRN; Protocol PRN Reason: Anxiety Stop: 04/05/17 09:56 Last Admin: 02/07/17 21:13 Dose: 1 mg Metoclopramide HCl (Reglan) 10 mg IVP Q6HR [facility] Stop: 04/09/17 11:59 Last Admin: 02/09/17 12:37 Dose: 10 mg Miscellaneous (Probiotic Screen) 1 ea PRN PRN PRN Reason: PROTOCOL Stop: 03/28/17 13:21 Miscellaneous (Vancomycin Iv Per Pharmacy) 1 [facility] PRN [facility] Stop: 04/04/17 05:14 Miscellaneous (Tpn Per Pharmacy) 1 [facility] PRN PRN PRN Reason: PROTOCOL Stop: 04/09/17 13:33 Pantoprazole Sodium (Protonix) 40 mg IVP BID [facility] Stop: 04/01/17 16:59 Last Admin: 02/09/17 08:55 Dose: 40 mg Sodium Phosphate (Fleet Enema) 135 ml RC PRN PRN PRN Reason: Constipation Stop: 04/07/17 09:54 - Procedures Procedures: Procedures Procedure Code Date BYPASS STOMACH TO JEJUNUM, OPEN APPROACH [id number] 01/25/17 FUSION OF STOMACH AND BOWEL 86348 01/25/17 INSPECTION OF GASTROINTESTINAL TRACT, OPEN APPROACH [id number] 01/25/17 REMOVAL OF GALLBLADDER 85683 01/25/17 REOPENING OF ABDOMEN 90491 01/25/17 REPAIR STOMACH, OPEN APPROACH [id number] 01/25/17 RESECTION OF GALLBLADDER, OPEN APPROACH [id number] 01/25/17 RESPIRATORY VENTILATION, LESS THAN 24 CONSECUTIVE HOURS [id number] 01/25/17 STOMACH SURGERY PROCEDURE 13029 01/25/17 VENT MGMT INPAT INIT DAY 36589 01/25/17 Internal Medicine Assmt/Plan - Assessment Assessment: ABDOMINAL ABCESS S/P SECOND SURGERY RENAL FAILURE HTN HX GASTRIC BYPASS - Plan Plan: CPM DONOT DISCHARGE WITHOPUT MY CONSENT NO TRANSFER TO [facility] d/w Dr Coyne. Patient is confused, weak, not eating no discharge until po intake resumes and PT eval occurs Nutritional Asmnt/Malnutr-PDOC - Dietary Evaluation Malnutrition Findings (Please click <Entered> for more info): Nutritional Asmnt/Malnutrition Start: 01/26/17 14: 32 Text: Status: Complete Freq: Document 01/26/17 14:32 GSUN (Rec: 01/26/17 14:51 GSUN [id number]) Nutritional Asmnt/Malnutrition Patient General Information Nutritional Screening Consult Diagnosis UTI, leukocytosis maybe reactive versus sepsis Pertinent Medical Hx/Surgical Hx HTN, DM, drug abuse, dementia Subjective Information 71 year old female, homeless. RD consult for BG >180. Pt was NPO at time of visit for CT abdomen/pelvis scan. Pt was agitated and in pain during visit. Pt refused to answer RD questions, repeatedly asked about bowel prep processes, then yelled at RD to leave. Pertinent Medications Dilaudid, Zofran Pertinent Labs 01/25: A1c 6, glucose 319H Nutritional Hx/Data Height 1.73 m Height (Calculated Centimeters) 172.7 Current Weight (lbs) 69.899 kg Weight (Calculated Kilograms) 69.9 Weight (Calculated Grams) 74690.6 [place] Body Weight 140lb Weight Status Approriate GI Symptoms Cultural/Ethnic/Zoroastrianism Belief Unknown. Usual diet at home Unknown. Estimated Nutritional Goals BEE in Kcals: Using Current wt Calories/Kcals/Kg CBW 70kg Kcals Calculated 1750-2100kcal (25-30kcal/kg, ? possible sepsis) Protein: Using Current wt Protein Calculated 70g (1g/kg) Fluid: ml 1750-2100ml (1ml/kcal) Nutritional Problem 1. Problem Problem Altered nutrition related laboratory values related to Etiology DM aeb Signs/Symptoms: H&P, glucose 319H on adm Intervention/Recommendation Comments 1. NPO at time of visit. Diet advancement per MD, recommend [id number] to promtoe glycemic control. 2. Provide edu on DM as needed . Expected Outcomes/Goals Expected Outcomes/Goals 1. Po itnake to meet 100% of estimated nutritional needs.
[2017-02-09 16:24] LABS: INR 2.76 (0.5-1.4)
--- NOTE | 2017-02-09 16:37 | General Progress Note ---
Subjective - Review of Systems Service Date: 02/09/17 Events since last encounter: still no BM Fleet enema ordered Erythromycin added for ileus, on Reglan now Objective - Results Result Diagrams: 02/09/17 04:21 02/09/17 04:21 Recent Labs: Laboratory Last Values WBC 15.3 Th/cmm (4.8-10.8) H 02/09/17 04:21 RBC 3.01 Mil/cmm (3.80-5.20) L 02/09/17 04:21 Hgb 9.9 gm/dL (11.7-16.1) L 02/09/17 04:21 Hct 28.9 % (35.0-45.0) L 02/09/17 04:21 MCV 96.1 fl (81-100) 02/09/17 04:21 MCH 32.8 pg (27.0-31.0) H 02/09/17 04:21 MCHC Differential 34.1 pg (28.0-36.0) 02/09/17 04:21 RDW 13.6 % (11.5-20.0) 02/09/17 04:21 Plt Count 293 Th/cmm (150-400) 02/09/17 04:21 MPV 9.0 fl 02/09/17 04:21 Neutrophils % HOME HEALTH ADMINISTRATOR 02/04/17 04:39 Band Neutrophils % 6 % (0-10) 02/09/17 04:21 Lymphocytes % HOME HEALTH ADMINISTRATOR 02/04/17 04:39 Monocytes % HOME HEALTH ADMINISTRATOR 02/01/17 15:55 Eosinophils % HOME HEALTH ADMINISTRATOR 02/04/17 04:39 Basophils % HOME HEALTH ADMINISTRATOR 02/01/17 15:55 Neutrophils (Manual) 84 % (40-80) H 02/09/17 04:21 Lymphocytes 7 % (20-50) L 02/09/17 04:21 Monocytes 2 % (2-10) 02/09/17 04:21 Eosinophils 1 % (0-5) 02/09/17 04:21 Basophils 1 % (0-3) 02/02/17 04:19 Metamyelocytes 2 % (0-0) H 02/02/17 04:19 Myelocytes 2 % 01/31/17 05:40 Atypical Lymphocytes 1 % 02/08/17 04:35 Hypochromia 1+ 02/05/17 04:40 Platelet Estimate ADEQUATE (NORMAL) 02/09/17 04:21 Platelet Morphology NORMAL (NORMAL) 02/09/17 04:21 Polychromasia 1+ 02/05/17 04:40 Anisocytosis 1+ 02/09/17 04:21 RBC Morph Micro Appear ABNORMAL (NORMAL) 02/09/17 04:21 Smear Path Review SEE BELOW 02/03/17 04:53 Eos Smear Source URINE 02/02/17 06:00 Eos Smear Total Cells NONE SEEN (NONE SEEN) 02/02/17 06:00 PT 30.3 SECONDS (9.5-11.5) H 02/09/17 15:47 INR 2.76 (0.5-1.4) H 02/09/17 15:47 Specimen Source Arterial 01/27/17 09:13 Sample Site Right Radial 01/27/17 09:13 pH 7.36 (7.35-7.45) 01/27/17 09:13 pCO2 41.0 mmHg (35.0-45.0) 01/27/17 09:13 pO2 100.0 mmHg (80.0-100.0) 01/27/17 09:13 HCO3 23.2 mEq/L (20.0-26.0) 01/27/17 09:13 Base Excess -2.2 mEq/L (-3.0-3.0) 01/27/17 09:13 O2 Saturation 97.0 % (92.0-100.0) 01/27/17 09:13 Luther Test PASS 01/27/17 09:13 Vent Rate 13 01/27/17 09:13 Inspired O2 30 01/27/17 09:13 Tidal Volume 500 01/27/17 09:13 PEEP 5 01/27/17 09:13 Pressure (ins/psv/peep) N/A 01/26/17 21:00 Critical Value PW 01/27/17 09:13 Sodium 149 mEq/L (136-145) H 02/09/17 04:21 Potassium 3.3 mEq/L (3.5-5.1) L 02/09/17 04:21 Chloride 119 mEq/L (98-107) H 02/09/17 04:21 Carbon Dioxide 28.9 mEq/L (21.0-31.0) 02/09/17 04:21 Anion Gap 4.4 (7.0-16.0) L 02/09/17 04:21 BUN 24 mg/dL (7-25) 02/09/17 04:21 Creatinine 1.3 mg/dL (0.6-1.2) H 02/09/17 04:21 Est GFR ( Amer) 52.2 ml/min (>90) 02/09/17 04:21 Est GFR (Non-Af Amer) 43.2 ml/min 02/09/17 04:21 BUN/Creatinine Ratio 18.5 02/09/17 04:21 Glucose 154 mg/dL (70-105) H 02/09/17 04:21 POC Glucose 180 MG/DL (70 - 105) H 02/09/17 12:30 Hemoglobin A1c % 6.0 % (4.0-6.0) 01/25/17 01:48 Whole Bld Lactic Acid 1.68 mmol/L (0.60-1.99) 02/03/17 04:53 Uric Acid 4.4 mg/dL (2.3-6.6) 02/02/17 04:19 Calcium 7.7 mg/dL (8.6-10.3) L 02/09/17 04:21 Phosphorus 2.6 mg/dL (2.5-5.0) 02/09/17 04:21 Magnesium 1.5 mg/dL (1.9-2.7) L 02/09/17 04:21 Total Bilirubin 0.3 mg/dL (0.3-1.0) 02/09/17 04:21 Direct Bilirubin 0.10 mg/dL (0.0-0.2) 02/09/17 04:21 AST 26 U/L (13-39) 02/09/17 04:21 ALT 18 U/L (7-52) 02/09/17 04:21 Alkaline Phosphatase 126 U/L (34-104) H 02/09/17 04:21 Troponin I < 0.01 ng/mL (0.01-0.05) L 01/25/17 01:48 Total Protein 4.5 gm/dL (6.0-8.3) L 02/09/17 04:21 Albumin 1.8 gm/dL (3.7-5.3) L 02/09/17 04:21 Globulin 2.7 gm/dL 02/09/17 04:21 Albumin/Globulin Ratio 0.7 (1.0-1.8) L 02/09/17 04:21 Triglycerides 120 mg/dL (<150) 02/09/17 04:21 Cholesterol 60 mg/dL (<200) 02/09/17 04:21 LDL Cholesterol Direct 37 mg/dL (75-193) L 01/25/17 01:48 HDL Cholesterol 83 mg/dL (23-92) 01/25/17 01:48 TSH 1.45 uIU/ml (0.34-5.60) 01/25/17 01:48 Urine Source RANDOM 02/02/17 06:00 Urine Color BROWN 02/02/17 06:00 Urine Clarity SL. CLOUDY (CLEAR) 02/02/17 06:00 Urine pH 6.0 02/02/17 06:00 Ur Specific [place] 1.025 (1.005-1.030) 02/02/17 06:00 Urine Protein >300 mg/dL (NEGATIVE) H 02/02/17 06:00 Urine Glucose (UA) NEGATIVE mg/dL (NEGATIVE) 02/02/17 06:00 Urine Ketones NEGATIVE mg/dL (NEGATIVE) 02/02/17 06:00 Urine Blood LARGE (NEGATIVE) H 02/02/17 06:00 Urine Nitrate NEGATIVE (NEGATIVE) 02/02/17 06:00 Urine Bilirubin SMALL (NEGATIVE) H 02/02/17 06:00 Urine Urobilinogen 0.2 E.U./dL (0.2 - 1.0) 02/02/17 06:00 Ur Leukocyte Esterase NEGATIVE (NEGATIVE) 02/02/17 06:00 Urine RBC 50-100 /hpf (0-5) H 02/02/17 06:00 Urine WBC 6-10 /hpf (0-5) H 02/02/17 06:00 Ur Epithelial Cells MODERATE /lpf (FEW) 02/02/17 06:00 Amorphous Sediment MANY URATES (NONE SEEN) 02/02/17 06:00 Urine Bacteria MODERATE /hpf (NONE SEEN) 02/02/17 06:00 Ur Random Sodium 59 mmol/L 02/02/17 06:00 Urine Creatinine 129.0 mg/dl (28.0-217.0) 02/02/17 06:00 Vancomycin Trough 13.9 ug/mL (10-20) 02/08/17 10:00 Random Vancomycin 10.8 ug/mL (5.0-40.0) 02/07/17 04:46 Salicylates < 25.0 mg/L (30.0-100.0) L 01/25/17 01:48 Urine Opiates Screen POSITIVE (NEGATIVE) H 01/25/17 03:00 Acetaminophen < 10.0 ug/mL (10.0-30.0) L 01/25/17 01:48 Ur Barbiturates Screen NEGATIVE (NEGATIVE) 01/25/17 03:00 Ur Phencyclidine Scrn NEGATIVE (NEGATIVE) 01/25/17 03:00 Amphetamines Screen POSITIVE (NEGATIVE) H 01/25/17 03:00 U Methamphetamines Scrn POSITIVE (NEGATIVE) H 01/25/17 03:00 U Benzodiazepines Scrn NEGATIVE (NEGATIVE) 01/25/17 03:00 U Cocaine Metab Screen NEGATIVE (NEGATIVE) 01/25/17 03:00 U Cannabinoids Screen NEGATIVE (NEGATIVE) 01/25/17 03:00 Ethyl Alcohol < 10 mg/dL (0-10) 01/25/17 01:48 RPR NONREACTIVE (NONREACTIVE) 01/25/17 01:48 HIV 1&2 Antibody Screen NEGATIVE (NEG) 01/26/17 05:02 - Physical Exam Vitals and I&O: Vital Signs Temp 97.1 F 02/09/17 08:00 Pulse 99 02/09/17 14:00 Resp 15 02/09/17 14:00 BP 149/61 02/09/17 14:00 Pulse Ox 99 02/09/17 14:00 Intake & Output 02/08/17 02/09/17 02/09/17 18:59 06:59 18:59 Intake Total 1450 1240 100 Output Total 1700 Balance 1450 -460 100 Intake: Intake, IV Amount 1450 1200 100 Dextrose 5% 1,000 ml @ 1000 1000 100 mls/hr IV .Q10H [facility] Rx#:[id number] Fluconazole 200mg/100mL 100 200 mg In 100 ml @ 100 mls/hr IV Q24HR [facility] Rx#: [id number] Meropenem 500 mg In 200 100 100 Sodium Chloride 0.9% 100 ml @ 100 mls/hr IV Q8H [facility] Rx#:[id number] Vancomycin HCl 1.25 gm In 250 Sodium Chloride 0.9% 250 ml @ 165 mls/hr IV Q24H [facility] Rx#:[id number] Oral 40 Output: Drainage 350 Left Lower Abdomen 160 Right Lower Abdomen 190 Urine 1350 Other: # Bowel Movements 0 Active Medications: Current Medications Clonidine HCl (Catapres) 0.1 mg PO Q4H PRN PRN Reason: sbp >160 and diastolic >100 Stop: 03/31/17 16:11 Last Admin: 01/31/17 17:06 Dose: 0.1 mg Diltiazem HCl (Cardizem) 20 mg IVP Q4HR PRN PRN Reason: HR>120 Stop: 04/02/17 08:57 Last Admin: 02/03/17 21:57 Dose: 20 mg Enalaprilat (Vasotec) 2.5 mg IVP Q4HR PRN PRN Reason: systolic BP >160 Stop: 04/02/17 11:33 Last Admin: 02/07/17 19:59 Dose: 2.5 mg Meropenem 500 mg/ Sodium (Chloride) 100 mls @ 100 mls/hr IV Q8H [facility] Stop: 04/04/17 07:44 Last Infusion: 02/09/17 09:55 Dose: Infused Fluconazole (Diflucan) 200 mg in 100 mls @ 100 mls/hr IV Q24HR [facility] Stop: 04/07/17 04:59 Last Infusion: 02/09/17 05:53 Dose: Infused Multivitamins/Minerals 10 ml/Amino Acids/Electrolytes/Dextrose/ Fat Emulsion Intravenous 1,200 mls @ 50 mls/hr IV .Q24H [facility] Stop: 04/10/17 14:59 Dextrose (D5w) 1,000 mls @ 50 mls/hr IV .Q20H [facility] Stop: 04/10/17 14:59 Vancomycin HCl 1.25 gm/ Sodium (Chloride) 250 mls @ 165 mls/hr IV Q24H [facility] Stop: 04/11/17 08:59 Insulin Aspart (Novolog) 0 units SUBQ Q6HR [facility] PRN Reason: Protocol Stop: 03/28/17 08:59 Last Admin: 02/09/17 12:37 Dose: 2 units Lactobacillus Rhamnosus (Culturelle) 1 each PO DAILY [facility] Stop: 03/29/17 08:59 Last Admin: 02/09/17 09:50 Dose: Not Given Lorazepam (Ativan) 1 mg IVP Q4HR PRN; Protocol PRN Reason: Anxiety Stop: 04/05/17 09:56 Last Admin: 02/07/17 21:13 Dose: 1 mg Metoclopramide HCl (Reglan) 10 mg IVP Q6HR ANISH Stop: 04/09/17 11:59 Last Admin: 02/09/17 12:37 Dose: 10 mg Miscellaneous (Probiotic Screen) 1 ea PRN PRN PRN Reason: PROTOCOL Stop: 03/28/17 13:21 Miscellaneous (Vancomycin Iv Per Pharmacy) 1 ea PRN ANISH Stop: 04/04/17 05:14 Miscellaneous (Tpn Per Pharmacy) 1 [facility] PRN PRN PRN Reason: PROTOCOL Stop: 04/09/17 13:33 Pantoprazole Sodium (Protonix) 40 mg IVP BID ANISH Stop: 04/01/17 16:59 Last Admin: 02/09/17 08:55 Dose: 40 mg Sodium Phosphate (Fleet Enema) 135 ml RC PRN PRN PRN Reason: Constipation Stop: 04/07/17 09:54 - Procedures Procedures: Procedures Procedure Code Date BYPASS STOMACH TO JEJUNUM, OPEN APPROACH [id number] 01/25/17 FUSION OF STOMACH AND BOWEL [id number] 01/25/17 INSPECTION OF GASTROINTESTINAL TRACT, OPEN APPROACH [id number] 01/25/17 REMOVAL OF GALLBLADDER 42557 01/25/17 REOPENING OF ABDOMEN 39533 01/25/17 REPAIR STOMACH, OPEN APPROACH [id number] 01/25/17 RESECTION OF GALLBLADDER, OPEN APPROACH [id number] 01/25/17 RESPIRATORY VENTILATION, LESS THAN 24 CONSECUTIVE HOURS [id number] 01/25/17 STOMACH SURGERY PROCEDURE [id number] 01/25/17 VENT MGMT INPAT INIT DAY 95599 01/25/17 Assessment/Plan - Problem List Patient Problems: All Active Problems H/O diabetes mellitus (Acute) Z86.39 H/O drug abuse (Acute) Z87.898 H/O: HTN (hypertension) (Acute) Z86.79 POSTCHOLECYSTECTOMY (Acute) UTI (urinary tract infection) (Acute) closeure og gastric perf (Acute) cplacement of new gj (Acute) h/o dementia (Acute) lysisi of adhesions (Acute) r/o sepsis (Acute) s/p surgery (Acute) septic shock (Acute) tachycardia (Acute) Nutritional Asmnt/Malnutr-PDOC - Dietary Evaluation Malnutrition Findings (Please click <Entered> for more info): Nutritional Asmnt/Malnutrition Start: 01/26/17 14: 32 Text: Status: Complete Freq: Document 01/26/17 14:32 GSUN (Rec: 01/26/17 14:51 GSUN [id number]) Nutritional Asmnt/Malnutrition Patient General Information Nutritional Screening Consult Diagnosis UTI, leukocytosis maybe reactive versus sepsis Pertinent Medical Hx/Surgical Hx HTN, DM, drug abuse, dementia Subjective Information 71 year old female, homeless. RD consult for BG >180. Pt was NPO at time of visit for CT abdomen/pelvis scan. Pt was agitated and in pain during visit. Pt refused to answer RD questions, repeatedly asked about bowel prep processes, then yelled at RD to leave. Pertinent Medications Dilaudid, Zofran Pertinent Labs 01/25: A1c 6, glucose 319H Nutritional Hx/Data Height 1.73 m Height (Calculated Centimeters) 172.7 Current Weight (lbs) 69.899 kg Weight (Calculated Kilograms) 69.9 Weight (Calculated Grams) 49191.6 [place] Body Weight 140lb Weight Status Approriate GI Symptoms Cultural/Ethnic/Denominational Belief Unknown. Usual diet at home Unknown. Estimated Nutritional Goals BEE in Kcals: Using Current wt Calories/Kcals/Kg CBW 70kg Kcals Calculated 1750-2100kcal (25-30kcal/kg, ? possible sepsis) Protein: Using Current wt Protein Calculated 70g (1g/kg) Fluid: ml 1750-2100ml (1ml/kcal) Nutritional Problem 1. Problem Problem Altered nutrition related laboratory values related to Etiology DM aeb Signs/Symptoms: H&P, glucose 319H on adm Intervention/Recommendation Comments 1. NPO at time of visit. Diet advancement per MD, recommend [id number] to promtoe glycemic control. 2. Provide edu on DM as needed . Expected Outcomes/Goals Expected Outcomes/Goals 1. Po [place] to meet 100% of estimated nutritional needs.
[2017-02-09] MEDS ORDERED: ERYTHROMYCIN LACT IV SCH (17:00)
[2017-02-09] MEDS ORDERED: SODIUM CHLORIDE 0.9% IV SCH (17:00)
[2017-02-09] MEDS: AMINO ACIDS IV SCH (17:54)
[2017-02-09] MEDS: [UNRECOGNIZED DRUG - OTHER] IV SCH (17:54)
[2017-02-09] MEDS: DEXTROSE IV SCH (17:54)
[2017-02-09] MEDS: MULTIVITAMIN IV SCH (17:54)
[2017-02-09] MEDS ORDERED: ERYTHROMYCIN IV ONE (18:00)
[2017-02-09] MEDS ORDERED: NS 0.9% IV ONE (18:00)
[2017-02-09] MEDS ORDERED: NS 0.9% IV SCH (20:00)
[2017-02-09] MEDS ORDERED: ERYTHROMYCIN IV SCH (20:00)
[2017-02-10] MEDS: Meropenem 500 MG in Sodium Chloride 0.9% 100 ML IV SCH ×3 (00:09→17:04)
[2017-02-10] MEDS: Metoclopramide 5 mg/mL 2mL Vial IVP SCH ×3 (00:27→12:00)
[2017-02-10 04:49] LABS: HEMOGLOBIN 8.6 gm/dL (11.7-16.1)
[2017-02-10 04:53] LABS: HEMATOCRIT 25.1 % (35.0-45.0); MEAN CELL VOLUME 95.7 fl (81-100); MEAN CORPUSCULAR HEMOGLOBIN 32.8 pg (27.0-31.0); MEAN CORPUSCULAR HGB CONC 34.3 pg (28.0-36.0); MEAN PLATELET VOLUME 9.3 fl; PLATELET COUNT 283 Th/cmm (150-400); RED BLOOD COUNT 2.63 Mil/cmm (3.80-5.20)
[2017-02-10 05:08] LABS: ANION GAP 3.2 (7.0-16.0); BUN - UREA NITROGEN 20 mg/dL (7-25); BUN/CREATININE RATIO 18.2; CALCIUM SERUM 6.9 mg/dL (8.6-10.3); CHLORIDE 117 mEq/L (98-107); CREATININE - SERUM 1.1 mg/dL (0.6-1.2); GLUCOSE 186 mg/dL (70-105); MAGNESIUM 1.6 mg/dL (1.9-2.7); PHOSPHOROUS 3.1 mg/dL (2.5-5.0); POTASSIUM SERUM 3.2 mEq/L (3.5-5.1); SODIUM SERUM 144 mEq/L (136-145)
[2017-02-10 05:09] LABS: WHITE BLOOD COUNT 16.6 Th/cmm (4.8-10.8)
[2017-02-10] MEDS: Fluconazole 200 mg/100 mL Premix Bag IV SCH (05:26)
[2017-02-10] MEDS: INSULIN ASPART, RECOMBINANT 100 UNITS/ML SUBQ SCH ×4 (06:42→18:25)
[2017-02-10 06:55] LABS: NEUTROPHILS 90 % (40-80); TOTAL CELLS COUNTED 100
[2017-02-10 06:56] LABS: ANISOCYTOSIS 1+; PLATELET ESTIMATE ADEQUATE (NORMAL)
[2017-02-10] MEDS: ERYTHROMYCIN IV SCH ×2 (08:14→19:36)
[2017-02-10] MEDS: NS 0.9% IV SCH ×2 (08:14→19:36)
[2017-02-10] MEDS ORDERED: Potassium Chloride 40 MEQ, Lidocaine 1% 20mL Vial 25 MG in Sodium Chloride 0.9% 250 ML IV ONE (09:29)
[2017-02-10] MEDS ORDERED: Mag Sulfate 2gm/50mL Premix 2 GM/50 ML BAG IV ONE (09:31)
--- NOTE | 2017-02-10 09:47 | General Progress Note ---
Subjective - Review of Systems Service Date: 02/10/17 Subjective: pt transferd to icu at 5pm st tachycardic hypotensive Objective - Results Result Diagrams: 02/10/17 04:09 02/10/17 04:09 Recent Labs: Laboratory Last Values WBC 16.6 Th/cmm (4.8-10.8) H 02/10/17 04:09 RBC 2.63 Mil/cmm (3.80-5.20) L 02/10/17 04:09 Hgb 8.6 gm/dL (11.7-16.1) L 02/10/17 04:09 Hct 25.1 % (35.0-45.0) L D 02/10/17 04:09 MCV 95.7 fl (81-100) 02/10/17 04:09 MCH 32.8 pg (27.0-31.0) H 02/10/17 04:09 MCHC Differential 34.3 pg (28.0-36.0) 02/10/17 04:09 RDW 13.0 % (11.5-20.0) 02/10/17 04:09 Plt Count 283 Th/cmm (150-400) 02/10/17 04:09 MPV 9.3 fl 02/10/17 04:09 Neutrophils % [employer] 02/04/17 04:39 Band Neutrophils % 6 % (0-10) 02/09/17 04:21 Lymphocytes % [employer] 02/04/17 04:39 Monocytes % [employer] 02/01/17 15:55 Eosinophils % [employer] 02/04/17 04:39 Basophils % [employer] 02/01/17 15:55 Neutrophils (Manual) 90 % (40-80) H 02/10/17 04:09 Lymphocytes 9 % (20-50) L 02/10/17 04:09 Monocytes 1 % (2-10) L 02/10/17 04:09 Eosinophils 1 % (0-5) 02/09/17 04:21 Basophils 1 % (0-3) 02/02/17 04:19 Metamyelocytes 2 % (0-0) H 02/02/17 04:19 Myelocytes 2 % 01/31/17 05:40 Atypical Lymphocytes 1 % 02/08/17 04:35 Hypochromia 1+ 02/05/17 04:40 Platelet Estimate ADEQUATE (NORMAL) 02/10/17 04:09 Platelet Morphology NORMAL (NORMAL) 02/09/17 04:21 Polychromasia 1+ 02/05/17 04:40 Anisocytosis 1+ 02/10/17 04:09 RBC Morph Micro Appear ABNORMAL (NORMAL) 02/10/17 04:09 Smear Path Review SEE BELOW 02/03/17 04:53 Eos Smear Source URINE 02/02/17 06:00 Eos Smear Total Cells NONE SEEN (NONE SEEN) 02/02/17 06:00 PT 30.3 SECONDS (9.5-11.5) H 02/09/17 15:47 INR 2.76 (0.5-1.4) H 02/09/17 15:47 Specimen Source Arterial 01/27/17 09:13 Sample Site Right Radial 01/27/17 09:13 pH 7.36 (7.35-7.45) 01/27/17 09:13 pCO2 41.0 mmHg (35.0-45.0) 01/27/17 09:13 pO2 100.0 mmHg (80.0-100.0) 01/27/17 09:13 HCO3 23.2 mEq/L (20.0-26.0) 01/27/17 09:13 Base Excess -2.2 mEq/L (-3.0-3.0) 01/27/17 09:13 O2 Saturation 97.0 % (92.0-100.0) 01/27/17 09:13 Luther Test PASS 01/27/17 09:13 Vent Rate 13 01/27/17 09:13 Inspired O2 30 01/27/17 09:13 Tidal Volume 500 01/27/17 09:13 PEEP 5 01/27/17 09:13 Pressure (ins/psv/peep) N/A 01/26/17 21:00 Critical Value PW 01/27/17 09:13 Sodium 144 mEq/L (136-145) 02/10/17 04:09 Potassium 3.2 mEq/L (3.5-5.1) L 02/10/17 04:09 Chloride 117 mEq/L (98-107) H 02/10/17 04:09 Carbon Dioxide 27.0 mEq/L (21.0-31.0) 02/10/17 04:09 Anion Gap 3.2 (7.0-16.0) L 02/10/17 04:09 BUN 20 mg/dL (7-25) 02/10/17 04:09 Creatinine 1.1 mg/dL (0.6-1.2) 02/10/17 04:09 Est GFR ( Amer) > 60.0 ml/min (>90) 02/10/17 04:09 Est GFR (Non-Af Amer) 52.3 ml/min 02/10/17 04:09 BUN/Creatinine Ratio 18.2 02/10/17 04:09 Glucose 186 mg/dL (70-105) H 02/10/17 04:09 POC Glucose 203 MG/DL (70 - 105) H 02/10/17 06:38 Hemoglobin A1c % 6.0 % (4.0-6.0) 01/25/17 01:48 Whole Bld Lactic Acid 1.68 mmol/L (0.60-1.99) 02/03/17 04:53 Uric Acid 4.4 mg/dL (2.3-6.6) 02/02/17 04:19 Calcium 6.9 mg/dL (8.6-10.3) L 02/10/17 04:09 Phosphorus 3.1 mg/dL (2.5-5.0) 02/10/17 04:09 Magnesium 1.6 mg/dL (1.9-2.7) L 02/10/17 04:09 Total Bilirubin 0.3 mg/dL (0.3-1.0) 02/09/17 04:21 Direct Bilirubin 0.10 mg/dL (0.0-0.2) 02/09/17 04:21 AST 26 U/L (13-39) 02/09/17 04:21 ALT 18 U/L (7-52) 02/09/17 04:21 Alkaline Phosphatase 126 U/L (34-104) H 02/09/17 04:21 Troponin I < 0.01 ng/mL (0.01-0.05) L 01/25/17 01:48 Total Protein 4.5 gm/dL (6.0-8.3) L 02/09/17 04:21 Albumin 1.8 gm/dL (3.7-5.3) L 02/09/17 04:21 Globulin 2.7 gm/dL 02/09/17 04:21 Albumin/Globulin Ratio 0.7 (1.0-1.8) L 02/09/17 04:21 Prealbumin 4 mg/dL (10-36) L 02/09/17 04:21 Triglycerides 120 mg/dL (<150) 02/09/17 04:21 Cholesterol 60 mg/dL (<200) 02/09/17 04:21 LDL Cholesterol Direct 37 mg/dL (75-193) L 01/25/17 01:48 HDL Cholesterol 83 mg/dL (23-92) 01/25/17 01:48 TSH 1.45 uIU/ml (0.34-5.60) 01/25/17 01:48 Urine Source RANDOM 02/02/17 06:00 Urine Color BROWN 02/02/17 06:00 Urine Clarity SL. CLOUDY (CLEAR) 02/02/17 06:00 Urine pH 6.0 02/02/17 06:00 Ur Specific [place] 1.025 (1.005-1.030) 02/02/17 06:00 Urine Protein >300 mg/dL (NEGATIVE) H 02/02/17 06:00 Urine Glucose (UA) NEGATIVE mg/dL (NEGATIVE) 02/02/17 06:00 Urine Ketones NEGATIVE mg/dL (NEGATIVE) 02/02/17 06:00 Urine Blood LARGE (NEGATIVE) H 02/02/17 06:00 Urine Nitrate NEGATIVE (NEGATIVE) 02/02/17 06:00 Urine Bilirubin SMALL (NEGATIVE) H 02/02/17 06:00 Urine Urobilinogen 0.2 E.U./dL (0.2 - 1.0) 02/02/17 06:00 Ur Leukocyte Esterase NEGATIVE (NEGATIVE) 02/02/17 06:00 Urine RBC 50-100 /hpf (0-5) H 02/02/17 06:00 Urine WBC 6-10 /hpf (0-5) H 02/02/17 06:00 Ur Epithelial Cells MODERATE /lpf (FEW) 02/02/17 06:00 Amorphous Sediment MANY URATES (NONE SEEN) 02/02/17 06:00 Urine Bacteria MODERATE /hpf (NONE SEEN) 02/02/17 06:00 Ur Random Sodium 59 mmol/L 02/02/17 06:00 Urine Creatinine 129.0 mg/dl (28.0-217.0) 02/02/17 06:00 Vancomycin Trough 19.6 ug/mL (10-20) 02/10/17 08:00 Random Vancomycin 10.8 ug/mL (5.0-40.0) 02/07/17 04:46 Salicylates < 25.0 mg/L (30.0-100.0) L 01/25/17 01:48 Urine Opiates Screen POSITIVE (NEGATIVE) H 01/25/17 03:00 Acetaminophen < 10.0 ug/mL (10.0-30.0) L 01/25/17 01:48 Ur Barbiturates Screen NEGATIVE (NEGATIVE) 01/25/17 03:00 Ur Phencyclidine Scrn NEGATIVE (NEGATIVE) 01/25/17 03:00 Amphetamines Screen POSITIVE (NEGATIVE) H 01/25/17 03:00 U Methamphetamines Scrn POSITIVE (NEGATIVE) H 01/25/17 03:00 U Benzodiazepines Scrn NEGATIVE (NEGATIVE) 01/25/17 03:00 U Cocaine Metab Screen NEGATIVE (NEGATIVE) 01/25/17 03:00 U Cannabinoids Screen NEGATIVE (NEGATIVE) 01/25/17 03:00 Ethyl Alcohol < 10 mg/dL (0-10) 01/25/17 01:48 RPR NONREACTIVE (NONREACTIVE) 01/25/17 01:48 HIV 1&2 Antibody Screen NEGATIVE (NEG) 01/26/17 05:02 - Physical Exam Vitals and I&O: Vital Signs Temp 97.9 F 02/10/17 04:00 Pulse 101 02/10/17 07:16 Resp 23 02/10/17 07:16 BP 158/78 02/10/17 07:00 Pulse Ox 98 02/10/17 07:16 Intake & Output 02/09/17 02/10/17 02/10/17 18:59 06:59 18:59 Intake Total 300 800 Output Total 1037 1075 Balance -971 -561 Intake: Intake, IV Amount 200 100 Meropenem 500 mg In 200 100 Sodium Chloride 0.9% 100 ml @ 100 mls/hr IV Q8H [facility] Rx#:[id number] Oral 100 100 TPN/PPN 600 Output: Drainage 180 Left Lower Abdomen 70 Right Lower Abdomen 110 Urine 850 850 Other 405 Other: # Bowel Movements 1 Stool Characteristics Liquid Liquid Mucoid Mucoid Brown Brown Active Medications: Current Medications Clonidine HCl (Catapres) 0.1 mg PO Q4H PRN PRN Reason: sbp >160 and diastolic >100 Stop: 03/31/17 16:11 Last Admin: 02/09/17 22:13 Dose: 0.1 mg Diltiazem HCl (Cardizem) 20 mg IVP Q4HR PRN PRN Reason: HR>120 Stop: 04/02/17 08:57 Last Admin: 02/03/17 21:57 Dose: 20 mg Enalaprilat (Vasotec) 2.5 mg IVP Q4HR PRN PRN Reason: systolic BP >160 Stop: 04/02/17 11:33 Last Admin: 02/09/17 21:42 Dose: 2.5 mg Hydromorphone HCl (Dilaudid) 1 mg IVP Q4HR PRN PRN Reason: Pain (Moderate) Stop: 04/10/17 15:59 Last Admin: 02/10/17 02:31 Dose: 1 mg Hydromorphone HCl (Dilaudid) 2 mg IVP Q4HR PRN PRN Reason: Pain (Severe) Stop: 04/10/17 15:59 Meropenem 500 mg/ Sodium (Chloride) 100 mls @ 100 mls/hr IV Q8H [facility] Stop: 04/04/17 07:44 Last Admin: 02/10/17 08:13 Dose: 200 mls/hr Fluconazole (Diflucan) 200 mg in 100 mls @ 100 mls/hr IV Q24HR [facility] Stop: 04/07/17 04:59 Last Admin: 02/10/17 05:26 Dose: 200 mls/hr Multivitamins/Minerals 10 ml/Amino Acids/Electrolytes/Dextrose/ Fat Emulsion Intravenous 1,200 mls @ 50 mls/hr IV .Q24H [facility] Stop: 04/10/17 14:59 Last Admin: 02/09/17 17:54 Dose: 50 mls/hr Dextrose (D5w) 1,000 mls @ 50 mls/hr IV .Q20H [facility] Stop: 04/10/17 14:59 Last Admin: 02/09/17 17:12 Dose: 50 mls/hr Vancomycin HCl 1.25 gm/ Sodium (Chloride) 250 mls @ 165 mls/hr IV Q24H [facility] Stop: 04/11/17 08:59 Erythromycin Lactobionate 500 (mg/ Sodium Chloride) 100 mls @ 100 mls/hr IV Q12HR@0800,2000 [facility] Stop: 04/11/17 07:59 Last Admin: 02/10/17 08:14 Dose: 100 mls/hr Potassium Chloride 40 meq/Lidocaine HCl 25 mg/ Sodium Chloride 272.5 mls @ 68 mls/hr IV X1 ONE Stop: 02/10/17 13:29 Magnesium Sulfate (Magnesium Sulfate Premix) 2 gm in 50 mls @ 25 mls/hr IV X1 ONE Stop: 02/10/17 11:30 Insulin Aspart (Novolog) 0 units SUBQ Q6HR ANISH PRN Reason: Protocol Stop: 03/28/17 08:59 Last Admin: 02/10/17 06:44 Dose: 4 units Lactobacillus Rhamnosus (Culturelle) 1 each PO DAILY [facility] Stop: 03/29/17 08:59 Last Admin: 02/09/17 09:50 Dose: Not Given Lorazepam (Ativan) 1 mg IVP Q4HR PRN; Protocol PRN Reason: Anxiety Stop: 04/05/17 09:56 Last Admin: 02/10/17 01:22 Dose: 1 mg Metoclopramide HCl (Reglan) 10 mg IVP Q6HR [facility] Stop: 04/09/17 11:59 Last Admin: 02/10/17 05:28 Dose: 10 mg Miscellaneous (Probiotic Screen) 1 [facility] PRN PRN PRN Reason: PROTOCOL Stop: 03/28/17 13:21 Miscellaneous (Vancomycin Iv Per Pharmacy) 1 [facility] PRN [facility] Stop: 04/04/17 05:14 Miscellaneous (Tpn Per Pharmacy) 1 [facility] PRN PRN PRN Reason: PROTOCOL Stop: 04/09/17 13:33 Ondansetron HCl (Zofran) 4 mg IV Q4H PRN PRN Reason: Nausea / Vomiting Stop: 04/10/17 16:57 Pantoprazole Sodium (Protonix) 40 mg IVP BID [facility] Stop: 04/01/17 16:59 Last Admin: 02/09/17 17:12 Dose: 40 mg Sodium Phosphate (Fleet Enema) 135 ml RC PRN PRN PRN Reason: Constipation Stop: 04/07/17 09:54 General: No acute distress HEENT: Atraumatic Neck: Supple Cardiovascular: Regular rate Abdomen: Bowel sounds - Procedures Procedures: Procedures Procedure Code Date BYPASS STOMACH TO JEJUNUM, OPEN APPROACH [id number] 01/25/17 FUSION OF STOMACH AND BOWEL 01769 01/25/17 INSPECTION OF GASTROINTESTINAL TRACT, OPEN APPROACH [id number] 01/25/17 REMOVAL OF GALLBLADDER 62248 01/25/17 REOPENING OF ABDOMEN 45115 01/25/17 REPAIR STOMACH, OPEN APPROACH [id number] 01/25/17 RESECTION OF GALLBLADDER, OPEN APPROACH [id number] 01/25/17 RESPIRATORY VENTILATION, LESS THAN 24 CONSECUTIVE HOURS [id number] 01/25/17 STOMACH SURGERY PROCEDURE 91595 01/25/17 VENT MGMT INPAT INIT DAY 14170 01/25/17 Assessment/Plan - Problem List Patient Problems: All Active Problems H/O diabetes mellitus (Acute) Z86.39 H/O drug abuse (Acute) Z87.898 H/O: HTN (hypertension) (Acute) Z86.79 POSTCHOLECYSTECTOMY (Acute) UTI (urinary tract infection) (Acute) closeure og gastric perf (Acute) cplacement of new gj (Acute) h/o dementia (Acute) lysisi of adhesions (Acute) r/o sepsis (Acute) s/p surgery (Acute) septic shock (Acute) tachycardia (Acute) - Plan Plan: fluids iv antibiotics id/cardio consult ltac eval monitor vitals/diet labs cpm Nutritional Asmnt/Malnutr-PDOC - Dietary Evaluation Malnutrition Findings (Please click <Entered> for more info): Nutritional Asmnt/Malnutrition Start: 01/26/17 14: 32 Text: Status: Complete Freq: Document 01/26/17 14:32 GSUN (Rec: 01/26/17 14:51 GSUN [id number]) Nutritional Asmnt/Malnutrition Patient General Information Nutritional Screening Consult Diagnosis UTI, leukocytosis maybe reactive versus sepsis Pertinent Medical Hx/Surgical Hx HTN, DM, drug abuse, dementia Subjective Information 71 year old female, homeless. RD consult for BG >180. Pt was NPO at time of visit for CT abdomen/pelvis scan. Pt was agitated and in pain during visit. Pt refused to answer RD questions, repeatedly asked about bowel prep processes, then yelled at RD to leave. Pertinent Medications Dilaudid, Zofran Pertinent Labs 01/25: A1c 6, glucose 319H Nutritional Hx/Data Height 1.73 m Height (Calculated Centimeters) 172.7 Current Weight (lbs) 69.899 kg Weight (Calculated Kilograms) 69.9 Weight (Calculated Grams) 70260.6 [place] Body Weight 140lb Weight Status Approriate GI Symptoms Cultural/Ethnic/[employer] Belief Unknown. Usual diet at home Unknown. Estimated Nutritional Goals BEE in Kcals: Using Current wt Calories/Kcals/Kg CBW 70kg Kcals Calculated 1750-2100kcal (25-30kcal/kg, ? possible sepsis) Protein: Using Current wt Protein Calculated 70g (1g/kg) Fluid: ml 1750-2100ml (1ml/kcal) Nutritional Problem 1. Problem Problem Altered nutrition related laboratory values related to Etiology DM aeb Signs/Symptoms: H&P, glucose 319H on adm Intervention/Recommendation Comments 1. NPO at time of visit. Diet advancement per MD, recommend [id number] to promtoe glycemic control. 2. Provide edu on DM as needed . Expected Outcomes/Goals Expected Outcomes/Goals 1. Po [place] to meet 100% of estimated nutritional needs.
--- NOTE | 2017-02-10 12:02 | Infectious Disease Prog Note ---
Infectious Disease Subjective - Review of Systems Service Date: 02/10/17 Subjective: Doing well. Infectious Disease Objective - Results Result Diagrams: 02/10/17 04:09 02/10/17 04:09 Recent Labs: Laboratory Last Values WBC 16.6 Th/cmm (4.8-10.8) H 02/10/17 04:09 RBC 2.63 Mil/cmm (3.80-5.20) L 02/10/17 04:09 Hgb 8.6 gm/dL (11.7-16.1) L 02/10/17 04:09 Hct 25.1 % (35.0-45.0) L D 02/10/17 04:09 MCV 95.7 fl (81-100) 02/10/17 04:09 MCH 32.8 pg (27.0-31.0) H 02/10/17 04:09 MCHC Differential 34.3 pg (28.0-36.0) 02/10/17 04:09 RDW 13.0 % (11.5-20.0) 02/10/17 04:09 Plt Count 283 Th/cmm (150-400) 02/10/17 04:09 MPV 9.3 fl 02/10/17 04:09 Neutrophils % HARDNESS TESTER 02/04/17 04:39 Band Neutrophils % 6 % (0-10) 02/09/17 04:21 Lymphocytes % HARDNESS TESTER 02/04/17 04:39 Monocytes % HARDNESS TESTER 02/01/17 15:55 Eosinophils % HARDNESS TESTER 02/04/17 04:39 Basophils % HARDNESS TESTER 02/01/17 15:55 Neutrophils (Manual) 90 % (40-80) H 02/10/17 04:09 Lymphocytes 9 % (20-50) L 02/10/17 04:09 Monocytes 1 % (2-10) L 02/10/17 04:09 Eosinophils 1 % (0-5) 02/09/17 04:21 Basophils 1 % (0-3) 02/02/17 04:19 Metamyelocytes 2 % (0-0) H 02/02/17 04:19 Myelocytes 2 % 01/31/17 05:40 Atypical Lymphocytes 1 % 02/08/17 04:35 Hypochromia 1+ 02/05/17 04:40 Platelet Estimate ADEQUATE (NORMAL) 02/10/17 04:09 Platelet Morphology NORMAL (NORMAL) 02/09/17 04:21 Polychromasia 1+ 02/05/17 04:40 Anisocytosis 1+ 02/10/17 04:09 RBC Morph Micro Appear ABNORMAL (NORMAL) 02/10/17 04:09 Smear Path Review SEE BELOW 02/03/17 04:53 Eos Smear Source URINE 02/02/17 06:00 Eos Smear Total Cells NONE SEEN (NONE SEEN) 02/02/17 06:00 PT 30.3 SECONDS (9.5-11.5) H 02/09/17 15:47 INR 2.76 (0.5-1.4) H 02/09/17 15:47 Specimen Source Arterial 01/27/17 09:13 Sample Site Right Radial 01/27/17 09:13 pH 7.36 (7.35-7.45) 01/27/17 09:13 pCO2 41.0 mmHg (35.0-45.0) 01/27/17 09:13 pO2 100.0 mmHg (80.0-100.0) 01/27/17 09:13 HCO3 23.2 mEq/L (20.0-26.0) 01/27/17 09:13 Base Excess -2.2 mEq/L (-3.0-3.0) 01/27/17 09:13 O2 Saturation 97.0 % (92.0-100.0) 01/27/17 09:13 Luther Test PASS 01/27/17 09:13 Vent Rate 13 01/27/17 09:13 Inspired O2 30 01/27/17 09:13 Tidal Volume 500 01/27/17 09:13 PEEP 5 01/27/17 09:13 Pressure (ins/psv/peep) N/A 01/26/17 21:00 Critical Value PW 01/27/17 09:13 Sodium 144 mEq/L (136-145) 02/10/17 04:09 Potassium 3.2 mEq/L (3.5-5.1) L 02/10/17 04:09 Chloride 117 mEq/L (98-107) H 02/10/17 04:09 Carbon Dioxide 27.0 mEq/L (21.0-31.0) 02/10/17 04:09 Anion Gap 3.2 (7.0-16.0) L 02/10/17 04:09 BUN 20 mg/dL (7-25) 02/10/17 04:09 Creatinine 1.1 mg/dL (0.6-1.2) 02/10/17 04:09 Est GFR ( Amer) > 60.0 ml/min (>90) 02/10/17 04:09 Est GFR (Non-Af Amer) 52.3 ml/min 02/10/17 04:09 BUN/Creatinine Ratio 18.2 02/10/17 04:09 Glucose 186 mg/dL (70-105) H 02/10/17 04:09 POC Glucose 203 MG/DL (70 - 105) H 02/10/17 06:38 Hemoglobin A1c % 6.0 % (4.0-6.0) 01/25/17 01:48 Whole Bld Lactic Acid 1.68 mmol/L (0.60-1.99) 02/03/17 04:53 Uric Acid 4.4 mg/dL (2.3-6.6) 02/02/17 04:19 Calcium 6.9 mg/dL (8.6-10.3) L 02/10/17 04:09 Phosphorus 3.1 mg/dL (2.5-5.0) 02/10/17 04:09 Magnesium 1.6 mg/dL (1.9-2.7) L 02/10/17 04:09 Total Bilirubin 0.3 mg/dL (0.3-1.0) 02/09/17 04:21 Direct Bilirubin 0.10 mg/dL (0.0-0.2) 02/09/17 04:21 AST 26 U/L (13-39) 02/09/17 04:21 ALT 18 U/L (7-52) 02/09/17 04:21 Alkaline Phosphatase 126 U/L (34-104) H 02/09/17 04:21 Troponin I < 0.01 ng/mL (0.01-0.05) L 01/25/17 01:48 Total Protein 4.5 gm/dL (6.0-8.3) L 02/09/17 04:21 Albumin 1.8 gm/dL (3.7-5.3) L 02/09/17 04:21 Globulin 2.7 gm/dL 02/09/17 04:21 Albumin/Globulin Ratio 0.7 (1.0-1.8) L 02/09/17 04:21 Prealbumin 4 mg/dL (10-36) L 02/09/17 04:21 Triglycerides 120 mg/dL (<150) 02/09/17 04:21 Cholesterol 60 mg/dL (<200) 02/09/17 04:21 LDL Cholesterol Direct 37 mg/dL (75-193) L 01/25/17 01:48 HDL Cholesterol 83 mg/dL (23-92) 01/25/17 01:48 TSH 1.45 uIU/ml (0.34-5.60) 01/25/17 01:48 Urine Source RANDOM 02/02/17 06:00 Urine Color BROWN 02/02/17 06:00 Urine Clarity SL. CLOUDY (CLEAR) 02/02/17 06:00 Urine pH 6.0 02/02/17 06:00 Ur Specific [place] 1.025 (1.005-1.030) 02/02/17 06:00 Urine Protein >300 mg/dL (NEGATIVE) H 02/02/17 06:00 Urine Glucose (UA) NEGATIVE mg/dL (NEGATIVE) 02/02/17 06:00 Urine Ketones NEGATIVE mg/dL (NEGATIVE) 02/02/17 06:00 Urine Blood LARGE (NEGATIVE) H 02/02/17 06:00 Urine Nitrate NEGATIVE (NEGATIVE) 02/02/17 06:00 Urine Bilirubin SMALL (NEGATIVE) H 02/02/17 06:00 Urine Urobilinogen 0.2 E.U./dL (0.2 - 1.0) 02/02/17 06:00 Ur Leukocyte Esterase NEGATIVE (NEGATIVE) 02/02/17 06:00 Urine RBC 50-100 /hpf (0-5) H 02/02/17 06:00 Urine WBC 6-10 /hpf (0-5) H 02/02/17 06:00 Ur Epithelial Cells MODERATE /lpf (FEW) 02/02/17 06:00 Amorphous Sediment MANY URATES (NONE SEEN) 02/02/17 06:00 Urine Bacteria MODERATE /hpf (NONE SEEN) 02/02/17 06:00 Ur Random Sodium 59 mmol/L 02/02/17 06:00 Urine Creatinine 129.0 mg/dl (28.0-217.0) 02/02/17 06:00 Vancomycin Trough 19.6 ug/mL (10-20) 02/10/17 08:00 Random Vancomycin 10.8 ug/mL (5.0-40.0) 02/07/17 04:46 Salicylates < 25.0 mg/L (30.0-100.0) L 01/25/17 01:48 Urine Opiates Screen POSITIVE (NEGATIVE) H 01/25/17 03:00 Acetaminophen < 10.0 ug/mL (10.0-30.0) L 01/25/17 01:48 Ur Barbiturates Screen NEGATIVE (NEGATIVE) 01/25/17 03:00 Ur Phencyclidine Scrn NEGATIVE (NEGATIVE) 01/25/17 03:00 Amphetamines Screen POSITIVE (NEGATIVE) H 01/25/17 03:00 U Methamphetamines Scrn POSITIVE (NEGATIVE) H 01/25/17 03:00 U Benzodiazepines Scrn NEGATIVE (NEGATIVE) 01/25/17 03:00 U Cocaine Metab Screen NEGATIVE (NEGATIVE) 01/25/17 03:00 U Cannabinoids Screen NEGATIVE (NEGATIVE) 01/25/17 03:00 Ethyl Alcohol < 10 mg/dL (0-10) 01/25/17 01:48 RPR NONREACTIVE (NONREACTIVE) 01/25/17 01:48 HIV 1&2 Antibody Screen NEGATIVE (NEG) 01/26/17 05:02 - Physical Exam Vitals and I&O: Vital Signs Temp 97 F 02/10/17 08:00 Pulse 94 02/10/17 08:00 Resp 19 02/10/17 08:00 BP 149/75 02/10/17 08:00 Pulse Ox 98 02/10/17 08:00 Intake & Output 02/09/17 02/10/17 02/10/17 18:59 06:59 18:59 Intake Total 300 800 Output Total 1030 1255 Balance -730 -709 Intake: Intake, IV Amount 200 100 Meropenem 500 mg In 200 100 Sodium Chloride 0.9% 100 ml @ 100 mls/hr IV Q8H ANISH Rx#:[id number] Oral 100 100 TPN/PPN 600 Output: Drainage 180 Left Lower Abdomen 70 Right Lower Abdomen 110 Urine 850 850 Other 405 Other: # Bowel Movements 1 Stool Characteristics Liquid Liquid Mucoid Mucoid Brown Brown Active Medications: Current Medications Clonidine HCl (Catapres) 0.1 mg PO Q4H PRN PRN Reason: sbp >160 and diastolic >100 Stop: 03/31/17 16:11 Last Admin: 02/09/17 22:13 Dose: 0.1 mg Diltiazem HCl (Cardizem) 20 mg IVP Q4HR PRN PRN Reason: HR>120 Stop: 04/02/17 08:57 Last Admin: 02/03/17 21:57 Dose: 20 mg Enalaprilat (Vasotec) 2.5 mg IVP Q4HR PRN PRN Reason: systolic BP >160 Stop: 04/02/17 11:33 Last Admin: 02/09/17 21:42 Dose: 2.5 mg Hydromorphone HCl (Dilaudid) 1 mg IVP Q4HR PRN PRN Reason: Pain (Moderate) Stop: 04/10/17 15:59 Last Admin: 02/10/17 02:31 Dose: 1 mg Hydromorphone HCl (Dilaudid) 2 mg IVP Q4HR PRN PRN Reason: Pain (Severe) Stop: 04/10/17 15:59 Meropenem 500 mg/ Sodium (Chloride) 100 mls @ 100 mls/hr IV Q8H [facility] Stop: 04/04/17 07:44 Last Admin: 02/10/17 08:13 Dose: 200 mls/hr Fluconazole (Diflucan) 200 mg in 100 mls @ 100 mls/hr IV Q24HR [facility] Stop: 04/07/17 04:59 Last Admin: 02/10/17 05:26 Dose: 200 mls/hr Multivitamins/Minerals 10 ml/Amino Acids/Electrolytes/Dextrose/ Fat Emulsion Intravenous 1,200 mls @ 50 mls/hr IV .Q24H [facility] Stop: 04/10/17 14:59 Last Admin: 02/09/17 17:54 Dose: 50 mls/hr Dextrose (D5w) 1,000 mls @ 50 mls/hr IV .Q20H [facility] Stop: 04/10/17 14:59 Last Admin: 02/09/17 17:12 Dose: 50 mls/hr Vancomycin HCl 1.25 gm/ Sodium (Chloride) 250 mls @ 165 mls/hr IV Q24H [facility] Stop: 04/11/17 08:59 Last Admin: 02/10/17 10:26 Dose: 165 mls/hr Erythromycin Lactobionate 500 (mg/ Sodium Chloride) 100 mls @ 100 mls/hr IV Q12HR@0800,2000 [facility] Stop: 04/11/17 07:59 Last Admin: 02/10/17 08:14 Dose: 100 mls/hr Potassium Chloride 40 meq/Lidocaine HCl 25 mg/ Sodium Chloride 272.5 mls @ 68 mls/hr IV X1 ONE Stop: 02/10/17 13:29 Insulin Aspart (Novolog) 0 units SUBQ Q6HR ANISH PRN Reason: Protocol Stop: 03/28/17 08:59 Last Admin: 02/10/17 06:44 Dose: 4 units Lactobacillus Rhamnosus (Culturelle) 1 each PO DAILY [facility] Stop: 03/29/17 08:59 Last Admin: 02/09/17 09:50 Dose: Not Given Lorazepam (Ativan) 1 mg IVP Q4HR PRN; Protocol PRN Reason: Anxiety Stop: 04/05/17 09:56 Last Admin: 02/10/17 01:22 Dose: 1 mg Metoclopramide HCl (Reglan) 10 mg IVP Q6HR [facility] Stop: 04/09/17 11:59 Last Admin: 02/10/17 05:28 Dose: 10 mg Miscellaneous (Probiotic Screen) 1 ea PRN PRN PRN Reason: PROTOCOL Stop: 03/28/17 13:21 Miscellaneous (Vancomycin Iv Per Pharmacy) 1 ea PRN [facility] Stop: 04/04/17 05:14 Miscellaneous (Tpn Per Pharmacy) 1 [facility] PRN PRN PRN Reason: PROTOCOL Stop: 04/09/17 13:33 Ondansetron HCl (Zofran) 4 mg IV Q4H PRN PRN Reason: Nausea / Vomiting Stop: 04/10/17 16:57 Pantoprazole Sodium (Protonix) 40 mg IVP BID [facility] Stop: 04/01/17 16:59 Last Admin: 02/09/17 17:12 Dose: 40 mg Sodium Phosphate (Fleet Enema) 135 ml RC PRN PRN PRN Reason: Constipation Stop: 04/07/17 09:54 General: no acute distress, well developed, well nourished HEENT: atraumatic, normocephalic, PERRLA, EOMI Neck: supple, no thyromegaly, no lymphadenopathy Cardiovascular: S1S2, regular Lungs: clear to auscultation bilaterally, clear to percussion Abdomen: soft, bowel sounds, other (2 SANCHEZ drains.), no tender, no distended Extremities: no cyanosis, no clubbing, no edema Neurological: awake, alert, oriented Skin: intact - Procedures Procedures: Procedures Procedure Code Date BYPASS STOMACH TO JEJUNUM, OPEN APPROACH [id number] 01/25/17 FUSION OF STOMACH AND BOWEL 39670 01/25/17 INSPECTION OF GASTROINTESTINAL TRACT, OPEN APPROACH [id number] 01/25/17 REMOVAL OF GALLBLADDER 70710 01/25/17 REOPENING OF ABDOMEN 22301 01/25/17 REPAIR STOMACH, OPEN APPROACH [id number] 01/25/17 RESECTION OF GALLBLADDER, OPEN APPROACH [id number] 01/25/17 RESPIRATORY VENTILATION, LESS THAN 24 CONSECUTIVE HOURS [id number] 01/25/17 STOMACH SURGERY PROCEDURE 07974 01/25/17 VENT MGMT INPAT INIT DAY 96450 01/25/17 Infectious Disease Assmt/Plan - Problem List Patient Problems: All Active Problems H/O diabetes mellitus (Acute) Z86.39 H/O drug abuse (Acute) Z87.898 H/O: HTN (hypertension) (Acute) Z86.79 POSTCHOLECYSTECTOMY (Acute) UTI (urinary tract infection) (Acute) closeure og gastric perf (Acute) cplacement of new gj (Acute) h/o dementia (Acute) lysisi of adhesions (Acute) r/o sepsis (Acute) s/p surgery (Acute) septic shock (Acute) tachycardia (Acute) - Assessment Assessment: 1. Peritonitis. 2. Gastric bypass perforation. 3. S/p exploratory lap X2 and repair anastomotic leak/ perforation and for intra abdominal abscess. 4. UTI. 5. Leukocytosis worse with candidemia. 6. malposition of central line. 7. Intra abdominal abscess. 8. MELECIO improving. - Plan Plan: Continue vanco iv, meropenem and diflucan. Nutritional Asmnt/Malnutr-PDOC - Dietary Evaluation Malnutrition Findings (Please click <Entered> for more info): Nutritional Asmnt/Malnutrition Start: 01/26/17 14: 32 Text: Status: Complete Freq: Document 01/26/17 14:32 GSUN (Rec: 01/26/17 14:51 GSUN [id number]) Nutritional Asmnt/Malnutrition Patient General Information Nutritional Screening Consult Diagnosis UTI, leukocytosis maybe reactive versus sepsis Pertinent Medical Hx/Surgical Hx HTN, DM, drug abuse, dementia Subjective Information 71 year old female, homeless. RD consult for BG >180. Pt was NPO at time of visit for CT abdomen/pelvis scan. Pt was agitated and in pain during visit. Pt refused to answer RD questions, repeatedly asked about bowel prep processes, then yelled at RD to leave. Pertinent Medications Dilaudid, Zofran Pertinent Labs 01/25: A1c 6, glucose 319H Nutritional Hx/Data Height 1.73 m Height (Calculated Centimeters) 172.7 Current Weight (lbs) 69.899 kg Weight (Calculated Kilograms) 69.9 Weight (Calculated Grams) 38739.6 Rew Body Weight 140lb Weight Status Approriate GI Symptoms Cultural/Ethnic/[employer] Belief Unknown. Usual diet at home Unknown. Estimated Nutritional Goals BEE in Kcals: Using Current wt Calories/Kcals/Kg CBW 70kg Kcals Calculated 1750-2100kcal (25-30kcal/kg, ? possible sepsis) Protein: Using Current wt Protein Calculated 70g (1g/kg) Fluid: ml 1750-2100ml (1ml/kcal) Nutritional Problem 1. Problem Problem Altered nutrition related laboratory values related to Etiology DM aeb Signs/Symptoms: H&P, glucose 319H on adm Intervention/Recommendation Comments 1. NPO at time of visit. Diet advancement per MD, recommend [id number] to promtoe glycemic control. 2. Provide edu on DM as needed . Expected Outcomes/Goals Expected Outcomes/Goals 1. [place] to meet 100% of estimated nutritional needs.
--- NOTE | 2017-02-10 13:03 | General Progress Note ---
Subjective - Review of Systems Service Date: 02/10/17 Events since last encounter: had BM yesterday labs ok march DC to ICU at [place] Objective - Results Result Diagrams: 02/10/17 04:09 02/10/17 04:09 Recent Labs: Laboratory Last Values WBC 16.6 Th/cmm (4.8-10.8) H 02/10/17 04:09 RBC 2.63 Mil/cmm (3.80-5.20) L 02/10/17 04:09 Hgb 8.6 gm/dL (11.7-16.1) L 02/10/17 04:09 Hct 25.1 % (35.0-45.0) L D 02/10/17 04:09 MCV 95.7 fl (81-100) 02/10/17 04:09 MCH 32.8 pg (27.0-31.0) H 02/10/17 04:09 MCHC Differential 34.3 pg (28.0-36.0) 02/10/17 04:09 RDW 13.0 % (11.5-20.0) 02/10/17 04:09 Plt Count 283 Th/cmm (150-400) 02/10/17 04:09 MPV 9.3 fl 02/10/17 04:09 Neutrophils % [employer] MANAGER 02/04/17 04:39 Band Neutrophils % 6 % (0-10) 02/09/17 04:21 Lymphocytes % G[employer] OPERATIONS MANAGER 02/04/17 04:39 Monocytes % GRAIN OPERATIONS MANAGER 02/01/17 15:55 Eosinophils % G[employer]IN OPERATIONS MANAGER 02/04/17 04:39 Basophils % G[employer]IN OPERATIONS MANAGER 02/01/17 15:55 Neutrophils (Manual) 90 % (40-80) H 02/10/17 04:09 Lymphocytes 9 % (20-50) L 02/10/17 04:09 Monocytes 1 % (2-10) L 02/10/17 04:09 Eosinophils 1 % (0-5) 02/09/17 04:21 Basophils 1 % (0-3) 02/02/17 04:19 Metamyelocytes 2 % (0-0) H 02/02/17 04:19 Myelocytes 2 % 01/31/17 05:40 Atypical Lymphocytes 1 % 02/08/17 04:35 Hypochromia 1+ 02/05/17 04:40 Platelet Estimate ADEQUATE (NORMAL) 02/10/17 04:09 Platelet Morphology NORMAL (NORMAL) 02/09/17 04:21 Polychromasia 1+ 02/05/17 04:40 Anisocytosis 1+ 02/10/17 04:09 RBC Morph Micro Appear ABNORMAL (NORMAL) 02/10/17 04:09 Smear Path Review SEE BELOW 02/03/17 04:53 Eos Smear Source URINE 02/02/17 06:00 Eos Smear Total Cells NONE SEEN (NONE SEEN) 02/02/17 06:00 PT 30.3 SECONDS (9.5-11.5) H 02/09/17 15:47 INR 2.76 (0.5-1.4) H 02/09/17 15:47 Specimen Source Arterial 01/27/17 09:13 Sample Site Right Radial 01/27/17 09:13 pH 7.36 (7.35-7.45) 01/27/17 09:13 pCO2 41.0 mmHg (35.0-45.0) 01/27/17 09:13 pO2 100.0 mmHg (80.0-100.0) 01/27/17 09:13 HCO3 23.2 mEq/L (20.0-26.0) 01/27/17 09:13 Base Excess -2.2 mEq/L (-3.0-3.0) 01/27/17 09:13 O2 Saturation 97.0 % (92.0-100.0) 01/27/17 09:13 Luther Test PASS 01/27/17 09:13 Vent Rate 13 01/27/17 09:13 Inspired O2 30 01/27/17 09:13 Tidal Volume 500 01/27/17 09:13 PEEP 5 01/27/17 09:13 Pressure (ins/psv/peep) N/A 01/26/17 21:00 Critical Value PW 01/27/17 09:13 Sodium 144 mEq/L (136-145) 02/10/17 04:09 Potassium 3.2 mEq/L (3.5-5.1) L 02/10/17 04:09 Chloride 117 mEq/L (98-107) H 02/10/17 04:09 Carbon Dioxide 27.0 mEq/L (21.0-31.0) 02/10/17 04:09 Anion Gap 3.2 (7.0-16.0) L 02/10/17 04:09 BUN 20 mg/dL (7-25) 02/10/17 04:09 Creatinine 1.1 mg/dL (0.6-1.2) 02/10/17 04:09 Est GFR ( Amer) > 60.0 ml/min (>90) 02/10/17 04:09 Est GFR (Non-Af Amer) 52.3 ml/min 02/10/17 04:09 BUN/Creatinine Ratio 18.2 02/10/17 04:09 Glucose 186 mg/dL (70-105) H 02/10/17 04:09 POC Glucose 203 MG/DL (70 - 105) H 02/10/17 06:38 Hemoglobin A1c % 6.0 % (4.0-6.0) 01/25/17 01:48 Whole Bld Lactic Acid 1.68 mmol/L (0.60-1.99) 02/03/17 04:53 Uric Acid 4.4 mg/dL (2.3-6.6) 02/02/17 04:19 Calcium 6.9 mg/dL (8.6-10.3) L 02/10/17 04:09 Phosphorus 3.1 mg/dL (2.5-5.0) 02/10/17 04:09 Magnesium 1.6 mg/dL (1.9-2.7) L 02/10/17 04:09 Total Bilirubin 0.3 mg/dL (0.3-1.0) 02/09/17 04:21 Direct Bilirubin 0.10 mg/dL (0.0-0.2) 02/09/17 04:21 AST 26 U/L (13-39) 02/09/17 04:21 ALT 18 U/L (7-52) 02/09/17 04:21 Alkaline Phosphatase 126 U/L (34-104) H 02/09/17 04:21 Troponin I < 0.01 ng/mL (0.01-0.05) L 01/25/17 01:48 Total Protein 4.5 gm/dL (6.0-8.3) L 02/09/17 04:21 Albumin 1.8 gm/dL (3.7-5.3) L 02/09/17 04:21 Globulin 2.7 gm/dL 02/09/17 04:21 Albumin/Globulin Ratio 0.7 (1.0-1.8) L 02/09/17 04:21 Prealbumin 4 mg/dL (10-36) L 02/09/17 04:21 Triglycerides 120 mg/dL (<150) 02/09/17 04:21 Cholesterol 60 mg/dL (<200) 02/09/17 04:21 LDL Cholesterol Direct 37 mg/dL (75-193) L 01/25/17 01:48 HDL Cholesterol 83 mg/dL (23-92) 01/25/17 01:48 TSH 1.45 uIU/ml (0.34-5.60) 01/25/17 01:48 Urine Source RANDOM 02/02/17 06:00 Urine Color BROWN 02/02/17 06:00 Urine Clarity SL. CLOUDY (CLEAR) 02/02/17 06:00 Urine pH 6.0 02/02/17 06:00 Ur Specific [place] 1.025 (1.005-1.030) 02/02/17 06:00 Urine Protein >300 mg/dL (NEGATIVE) H 02/02/17 06:00 Urine Glucose (UA) NEGATIVE mg/dL (NEGATIVE) 02/02/17 06:00 Urine Ketones NEGATIVE mg/dL (NEGATIVE) 02/02/17 06:00 Urine Blood LARGE (NEGATIVE) H 02/02/17 06:00 Urine Nitrate NEGATIVE (NEGATIVE) 02/02/17 06:00 Urine Bilirubin SMALL (NEGATIVE) H 02/02/17 06:00 Urine Urobilinogen 0.2 E.U./dL (0.2 - 1.0) 02/02/17 06:00 Ur Leukocyte Esterase NEGATIVE (NEGATIVE) 02/02/17 06:00 Urine RBC 50-100 /hpf (0-5) H 02/02/17 06:00 Urine WBC 6-10 /hpf (0-5) H 02/02/17 06:00 Ur Epithelial Cells MODERATE /lpf (FEW) 02/02/17 06:00 Amorphous Sediment MANY URATES (NONE SEEN) 02/02/17 06:00 Urine Bacteria MODERATE /hpf (NONE SEEN) 02/02/17 06:00 Ur Random Sodium 59 mmol/L 02/02/17 06:00 Urine Creatinine 129.0 mg/dl (28.0-217.0) 02/02/17 06:00 Vancomycin Trough 19.6 ug/mL (10-20) 02/10/17 08:00 Random Vancomycin 10.8 ug/mL (5.0-40.0) 02/07/17 04:46 Salicylates < 25.0 mg/L (30.0-100.0) L 01/25/17 01:48 Urine Opiates Screen POSITIVE (NEGATIVE) H 01/25/17 03:00 Acetaminophen < 10.0 ug/mL (10.0-30.0) L 01/25/17 01:48 Ur Barbiturates Screen NEGATIVE (NEGATIVE) 01/25/17 03:00 Ur Phencyclidine Scrn NEGATIVE (NEGATIVE) 01/25/17 03:00 Amphetamines Screen POSITIVE (NEGATIVE) H 01/25/17 03:00 U Methamphetamines Scrn POSITIVE (NEGATIVE) H 01/25/17 03:00 U Benzodiazepines Scrn NEGATIVE (NEGATIVE) 01/25/17 03:00 U Cocaine Metab Screen NEGATIVE (NEGATIVE) 01/25/17 03:00 U Cannabinoids Screen NEGATIVE (NEGATIVE) 01/25/17 03:00 Ethyl Alcohol < 10 mg/dL (0-10) 01/25/17 01:48 RPR NONREACTIVE (NONREACTIVE) 01/25/17 01:48 HIV 1&2 Antibody Screen NEGATIVE (NEG) 01/26/17 05:02 - Physical Exam Vitals and I&O: Vital Signs Temp 97 F 02/10/17 08:00 Pulse 94 02/10/17 08:00 Resp 19 02/10/17 08:00 BP 149/75 02/10/17 08:00 Pulse Ox 98 02/10/17 08:00 Intake & Output 02/09/17 02/10/17 02/10/17 18:59 06:59 18:59 Intake Total 300 800 Output Total 1030 0075 Balance -569 -703 Intake: Intake, IV Amount 200 100 Meropenem 500 mg In 200 100 Sodium Chloride 0.9% 100 ml @ 100 mls/hr IV Q8H [facility] Rx#:[id number] Oral 100 100 TPN/PPN 600 Output: Drainage 180 Left Lower Abdomen 70 Right Lower Abdomen 110 Urine 850 850 Other 405 Other: # Bowel Movements 1 Stool Characteristics Liquid Liquid Mucoid Mucoid Brown Brown Active Medications: Current Medications Clonidine HCl (Catapres) 0.1 mg PO Q4H PRN PRN Reason: sbp >160 and diastolic >100 Stop: 03/31/17 16:11 Last Admin: 02/09/17 22:13 Dose: 0.1 mg Diltiazem HCl (Cardizem) 20 mg IVP Q4HR PRN PRN Reason: HR>120 Stop: 04/02/17 08:57 Last Admin: 02/03/17 21:57 Dose: 20 mg Enalaprilat (Vasotec) 2.5 mg IVP Q4HR PRN PRN Reason: systolic BP >160 Stop: 04/02/17 11:33 Last Admin: 02/09/17 21:42 Dose: 2.5 mg Hydromorphone HCl (Dilaudid) 1 mg IVP Q4HR PRN PRN Reason: Pain (Moderate) Stop: 04/10/17 15:59 Last Admin: 02/10/17 02:31 Dose: 1 mg Hydromorphone HCl (Dilaudid) 2 mg IVP Q4HR PRN PRN Reason: Pain (Severe) Stop: 04/10/17 15:59 Meropenem 500 mg/ Sodium (Chloride) 100 mls @ 100 mls/hr IV Q8H [facility] Stop: 04/04/17 07:44 Last Admin: 02/10/17 08:13 Dose: 200 mls/hr Fluconazole (Diflucan) 200 mg in 100 mls @ 100 mls/hr IV Q24HR [facility] Stop: 04/07/17 04:59 Last Admin: 02/10/17 05:26 Dose: 200 mls/hr Multivitamins/Minerals 10 ml/Amino Acids/Electrolytes/Dextrose/ Fat Emulsion Intravenous 1,200 mls @ 50 mls/hr IV .Q24H [facility] Stop: 04/10/17 14:59 Last Admin: 02/09/17 17:54 Dose: 50 mls/hr Dextrose (D5w) 1,000 mls @ 50 mls/hr IV .Q20H [facility] Stop: 04/10/17 14:59 Last Admin: 02/09/17 17:12 Dose: 50 mls/hr Vancomycin HCl 1.25 gm/ Sodium (Chloride) 250 mls @ 165 mls/hr IV Q24H [facility] Stop: 04/11/17 08:59 Last Admin: 02/10/17 10:26 Dose: 165 mls/hr Erythromycin Lactobionate 500 (mg/ Sodium Chloride) 100 mls @ 100 mls/hr IV Q12HR@0800,2000 [facility] Stop: 04/11/17 07:59 Last Admin: 02/10/17 08:14 Dose: 100 mls/hr Potassium Chloride 40 meq/Lidocaine HCl 25 mg/ Sodium Chloride 272.5 mls @ 68 mls/hr IV X1 ONE Stop: 02/10/17 13:29 Last Admin: 02/10/17 11:57 Dose: 68 mls/hr Insulin Aspart (Novolog) 0 units SUBQ Q6HR ANISH PRN Reason: Protocol Stop: 03/28/17 08:59 Last Admin: 02/10/17 12:00 Dose: 2 units Lactobacillus Rhamnosus (Culturelle) 1 each PO DAILY [facility] Stop: 03/29/17 08:59 Last Admin: 02/09/17 09:50 Dose: Not Given Lorazepam (Ativan) 1 mg IVP Q4HR PRN; Protocol PRN Reason: Anxiety Stop: 04/05/17 09:56 Last Admin: 02/10/17 01:22 Dose: 1 mg Metoclopramide HCl (Reglan) 10 mg IVP Q6HR [facility] Stop: 04/09/17 11:59 Last Admin: 02/10/17 12:00 Dose: 10 mg Miscellaneous (Probiotic Screen) 1 ea PRN PRN PRN Reason: PROTOCOL Stop: 03/28/17 13:21 Miscellaneous (Vancomycin Iv Per Pharmacy) 1 ea PRN [facility] Stop: 04/04/17 05:14 Miscellaneous (Tpn Per Pharmacy) 1 ea PRN PRN PRN Reason: PROTOCOL Stop: 04/09/17 13:33 Ondansetron HCl (Zofran) 4 mg IV Q4H PRN PRN Reason: Nausea / Vomiting Stop: 04/10/17 16:57 Pantoprazole Sodium (Protonix) 40 mg IVP BID [facility] Stop: 04/01/17 16:59 Last Admin: 02/10/17 12:00 Dose: 40 mg Sodium Phosphate (Fleet Enema) 135 ml RC PRN PRN PRN Reason: Constipation Stop: 04/07/17 09:54 - Procedures Procedures: Procedures Procedure Code Date BYPASS STOMACH TO JEJUNUM, OPEN APPROACH [id number] 01/25/17 FUSION OF STOMACH AND BOWEL 70140 01/25/17 INSPECTION OF GASTROINTESTINAL TRACT, OPEN APPROACH [id number] 01/25/17 REMOVAL OF GALLBLADDER 22713 01/25/17 REOPENING OF ABDOMEN 29154 01/25/17 REPAIR STOMACH, OPEN APPROACH [id number] 01/25/17 RESECTION OF GALLBLADDER, OPEN APPROACH [id number] 01/25/17 RESPIRATORY VENTILATION, LESS THAN 24 CONSECUTIVE HOURS [id number] 01/25/17 STOMACH SURGERY PROCEDURE 19416 01/25/17 VENT MGMT INPAT INIT DAY 55422 01/25/17 Assessment/Plan - Problem List Patient Problems: All Active Problems H/O diabetes mellitus (Acute) Z86.39 H/O drug abuse (Acute) Z87.898 H/O: HTN (hypertension) (Acute) Z86.79 POSTCHOLECYSTECTOMY (Acute) UTI (urinary tract infection) (Acute) closeure og gastric perf (Acute) cplacement of new gj (Acute) h/o dementia (Acute) lysisi of adhesions (Acute) r/o sepsis (Acute) s/p surgery (Acute) septic shock (Acute) tachycardia (Acute) Nutritional Asmnt/Malnutr-PDOC - Dietary Evaluation Malnutrition Findings (Please click <Entered> for more info): Nutritional Asmnt/Malnutrition Start: 01/26/17 14: 32 Text: Status: Complete Freq: Document 01/26/17 14:32 GSUN (Rec: 01/26/17 14:51 GSUN [id number]) Nutritional Asmnt/Malnutrition Patient General Information Nutritional Screening Consult Diagnosis UTI, leukocytosis maybe reactive versus sepsis Pertinent Medical Hx/Surgical Hx HTN, DM, drug abuse, dementia Subjective Information 71 year old female, homeless. RD consult for BG >180. Pt was NPO at time of visit for CT abdomen/pelvis scan. Pt was agitated and in pain during visit. Pt refused to answer RD questions, repeatedly asked about bowel prep processes, then yelled at RD to leave. Pertinent Medications Dilaudid, Zofran Pertinent Labs 01/25: A1c 6, glucose 319H Nutritional Hx/Data Height 1.73 m Height (Calculated Centimeters) 172.7 Current Weight (lbs) 69.899 kg Weight (Calculated Kilograms) 69.9 Weight (Calculated Grams) 40891.6 [place] Body Weight 140lb Weight Status Approriate GI Symptoms Cultural/Ethnic/Holiness Belief Unknown. Usual diet at home Unknown. Estimated Nutritional Goals BEE in Kcals: Using Current wt Calories/Kcals/Kg CBW 70kg Kcals Calculated 1750-2100kcal (25-30kcal/kg, ? possible sepsis) Protein: Using Current wt Protein Calculated 70g (1g/kg) Fluid: ml 1750-2100ml (1ml/kcal) Nutritional Problem 1. Problem Problem Altered nutrition related laboratory values related to Etiology DM aeb Signs/Symptoms: H&P, glucose 319H on adm Intervention/Recommendation Comments 1. NPO at time of visit. Diet advancement per MD, recommend [id number] to promtoe glycemic control. 2. Provide edu on DM as needed . Expected Outcomes/Goals Expected Outcomes/Goals 1. [place] to meet 100% of estimated nutritional needs.
--- NOTE | 2017-02-10 15:27 | Diagnostic Imaging Report ---
Left upper extremity Doppler venous ultrasound exam HISTORY: Swelling Sonographic sector images were obtained through the left internal jugular, subclavian, axillary, brachial, and basilic veins. No thrombus identified. Normal compressibility and augmentation responses. IMPRESSION: Negative exam for thrombophlebitis
--- NOTE | 2017-02-10 15:28 | Diagnostic Imaging Report ---
Portable chest x-ray HISTORY: Shortness of breath, vascular catheter placement The overall heart size appears normal. Density seen in the left lower hemithorax consistent with a pleural effusion. Old left rib fractures noted. Right-sided vascular catheter is seen. The tip is in the region of the junction between the superior vena cava and right atrium. IMPRESSION: 1. Vascular catheter placement as noted above 2. Findings consistent with a left pleural effusion
[2017-02-10] MEDS: Lactobacillus Rhamnosus 10 Billion CFU Capsule PO SCH (17:03)
[2017-02-10] MEDS: [UNRECOGNIZED DRUG - OTHER] IV SCH (17:06)
[2017-02-10] MEDS: MULTIVITAMIN IV SCH (17:06)
[2017-02-10] MEDS: DEXTROSE IV SCH (17:06)
[2017-02-10] MEDS: AMINO ACIDS IV SCH (17:06)
--- NOTE | 2017-02-10 18:44 | General Progress Note ---
Subjective - Review of Systems Service Date: 02/10/17 Subjective: sleeping, arousable, more comfortable Objective - Results Result Diagrams: 02/10/17 04:09 02/10/17 04:09 Recent Labs: Laboratory Last Values WBC 16.6 Th/cmm (4.8-10.8) H 02/10/17 04:09 RBC 2.63 Mil/cmm (3.80-5.20) L 02/10/17 04:09 Hgb 8.6 gm/dL (11.7-16.1) L 02/10/17 04:09 Hct 25.1 % (35.0-45.0) L D 02/10/17 04:09 MCV 95.7 fl (81-100) 02/10/17 04:09 MCH 32.8 pg (27.0-31.0) H 02/10/17 04:09 MCHC Differential 34.3 pg (28.0-36.0) 02/10/17 04:09 RDW 13.0 % (11.5-20.0) 02/10/17 04:09 Plt Count 283 Th/cmm (150-400) 02/10/17 04:09 MPV 9.3 fl 02/10/17 04:09 Neutrophils % [facility] 02/04/17 04:39 Band Neutrophils % 6 % (0-10) 02/09/17 04:21 Lymphocytes % [employer] [employer] 02/04/17 04:39 Monocytes % [facility] 02/01/17 15:55 Eosinophils % [employer] [employer] 02/04/17 04:39 Basophils % [employer] [employer] 02/01/17 15:55 Neutrophils (Manual) 90 % (40-80) H 02/10/17 04:09 Lymphocytes 9 % (20-50) L 02/10/17 04:09 Monocytes 1 % (2-10) L 02/10/17 04:09 Eosinophils 1 % (0-5) 02/09/17 04:21 Basophils 1 % (0-3) 02/02/17 04:19 Metamyelocytes 2 % (0-0) H 02/02/17 04:19 Myelocytes 2 % 01/31/17 05:40 Atypical Lymphocytes 1 % 02/08/17 04:35 Hypochromia 1+ 02/05/17 04:40 Platelet Estimate ADEQUATE (NORMAL) 02/10/17 04:09 Platelet Morphology NORMAL (NORMAL) 02/09/17 04:21 Polychromasia 1+ 02/05/17 04:40 Anisocytosis 1+ 02/10/17 04:09 RBC Morph Micro Appear ABNORMAL (NORMAL) 02/10/17 04:09 Smear Path Review SEE BELOW 02/03/17 04:53 Eos Smear Source URINE 02/02/17 06:00 Eos Smear Total Cells NONE SEEN (NONE SEEN) 02/02/17 06:00 PT 30.3 SECONDS (9.5-11.5) H 02/09/17 15:47 INR 2.76 (0.5-1.4) H 02/09/17 15:47 Specimen Source Arterial 01/27/17 09:13 Sample Site Right Radial 01/27/17 09:13 pH 7.36 (7.35-7.45) 01/27/17 09:13 pCO2 41.0 mmHg (35.0-45.0) 01/27/17 09:13 pO2 100.0 mmHg (80.0-100.0) 01/27/17 09:13 HCO3 23.2 mEq/L (20.0-26.0) 01/27/17 09:13 Base Excess -2.2 mEq/L (-3.0-3.0) 01/27/17 09:13 O2 Saturation 97.0 % (92.0-100.0) 01/27/17 09:13 Luther Test PASS 01/27/17 09:13 Vent Rate 13 01/27/17 09:13 Inspired O2 30 01/27/17 09:13 Tidal Volume 500 01/27/17 09:13 PEEP 5 01/27/17 09:13 Pressure (ins/psv/peep) N/A 01/26/17 21:00 Critical Value PW 01/27/17 09:13 Sodium 144 mEq/L (136-145) 02/10/17 04:09 Potassium 3.2 mEq/L (3.5-5.1) L 02/10/17 04:09 Chloride 117 mEq/L (98-107) H 02/10/17 04:09 Carbon Dioxide 27.0 mEq/L (21.0-31.0) 02/10/17 04:09 Anion Gap 3.2 (7.0-16.0) L 02/10/17 04:09 BUN 20 mg/dL (7-25) 02/10/17 04:09 Creatinine 1.1 mg/dL (0.6-1.2) 02/10/17 04:09 Est GFR ( Amer) > 60.0 ml/min (>90) 02/10/17 04:09 Est GFR (Non-Af Amer) 52.3 ml/min 02/10/17 04:09 BUN/Creatinine Ratio 18.2 02/10/17 04:09 Glucose 186 mg/dL (70-105) H 02/10/17 04:09 POC Glucose 215 MG/DL (70 - 105) H 02/10/17 18:20 Hemoglobin A1c % 6.0 % (4.0-6.0) 01/25/17 01:48 Whole Bld Lactic Acid 1.68 mmol/L (0.60-1.99) 02/03/17 04:53 Uric Acid 4.4 mg/dL (2.3-6.6) 02/02/17 04:19 Calcium 6.9 mg/dL (8.6-10.3) L 02/10/17 04:09 Phosphorus 3.1 mg/dL (2.5-5.0) 02/10/17 04:09 Magnesium 1.6 mg/dL (1.9-2.7) L 02/10/17 04:09 Total Bilirubin 0.3 mg/dL (0.3-1.0) 02/09/17 04:21 Direct Bilirubin 0.10 mg/dL (0.0-0.2) 02/09/17 04:21 AST 26 U/L (13-39) 02/09/17 04:21 ALT 18 U/L (7-52) 02/09/17 04:21 Alkaline Phosphatase 126 U/L (34-104) H 02/09/17 04:21 Troponin I < 0.01 ng/mL (0.01-0.05) L 01/25/17 01:48 Total Protein 4.5 gm/dL (6.0-8.3) L 02/09/17 04:21 Albumin 1.8 gm/dL (3.7-5.3) L 02/09/17 04:21 Globulin 2.7 gm/dL 02/09/17 04:21 Albumin/Globulin Ratio 0.7 (1.0-1.8) L 02/09/17 04:21 Prealbumin 4 mg/dL (10-36) L 02/09/17 04:21 Triglycerides 120 mg/dL (<150) 02/09/17 04:21 Cholesterol 60 mg/dL (<200) 02/09/17 04:21 LDL Cholesterol Direct 37 mg/dL (75-193) L 01/25/17 01:48 HDL Cholesterol 83 mg/dL (23-92) 01/25/17 01:48 TSH 1.45 uIU/ml (0.34-5.60) 01/25/17 01:48 Urine Source RANDOM 02/02/17 06:00 Urine Color BROWN 02/02/17 06:00 Urine Clarity SL. CLOUDY (CLEAR) 02/02/17 06:00 Urine pH 6.0 02/02/17 06:00 Ur Specific [place] 1.025 (1.005-1.030) 02/02/17 06:00 Urine Protein >300 mg/dL (NEGATIVE) H 02/02/17 06:00 Urine Glucose (UA) NEGATIVE mg/dL (NEGATIVE) 02/02/17 06:00 Urine Ketones NEGATIVE mg/dL (NEGATIVE) 02/02/17 06:00 Urine Blood LARGE (NEGATIVE) H 02/02/17 06:00 Urine Nitrate NEGATIVE (NEGATIVE) 02/02/17 06:00 Urine Bilirubin SMALL (NEGATIVE) H 02/02/17 06:00 Urine Urobilinogen 0.2 E.U./dL (0.2 - 1.0) 02/02/17 06:00 Ur Leukocyte Esterase NEGATIVE (NEGATIVE) 02/02/17 06:00 Urine RBC 50-100 /hpf (0-5) H 02/02/17 06:00 Urine WBC 6-10 /hpf (0-5) H 02/02/17 06:00 Ur Epithelial Cells MODERATE /lpf (FEW) 02/02/17 06:00 Amorphous Sediment MANY URATES (NONE SEEN) 02/02/17 06:00 Urine Bacteria MODERATE /hpf (NONE SEEN) 02/02/17 06:00 Ur Random Sodium 59 mmol/L 02/02/17 06:00 Urine Creatinine 129.0 mg/dl (28.0-217.0) 02/02/17 06:00 Vancomycin Trough 19.6 ug/mL (10-20) 02/10/17 08:00 Random Vancomycin 10.8 ug/mL (5.0-40.0) 02/07/17 04:46 Salicylates < 25.0 mg/L (30.0-100.0) L 01/25/17 01:48 Urine Opiates Screen POSITIVE (NEGATIVE) H 01/25/17 03:00 Acetaminophen < 10.0 ug/mL (10.0-30.0) L 01/25/17 01:48 Ur Barbiturates Screen NEGATIVE (NEGATIVE) 01/25/17 03:00 Ur Phencyclidine Scrn NEGATIVE (NEGATIVE) 01/25/17 03:00 Amphetamines Screen POSITIVE (NEGATIVE) H 01/25/17 03:00 U Methamphetamines Scrn POSITIVE (NEGATIVE) H 01/25/17 03:00 U Benzodiazepines Scrn NEGATIVE (NEGATIVE) 01/25/17 03:00 U Cocaine Metab Screen NEGATIVE (NEGATIVE) 01/25/17 03:00 U Cannabinoids Screen NEGATIVE (NEGATIVE) 01/25/17 03:00 Ethyl Alcohol < 10 mg/dL (0-10) 01/25/17 01:48 RPR NONREACTIVE (NONREACTIVE) 01/25/17 01:48 HIV 1&2 Antibody Screen NEGATIVE (NEG) 01/26/17 05:02 - Physical Exam Vitals and I&O: Vital Signs Temp 97 F 02/10/17 08:00 Pulse 96 02/10/17 10:00 Resp 18 02/10/17 10:00 BP 144/75 02/10/17 10:00 Pulse Ox 97 02/10/17 09:00 Intake & Output 02/09/17 02/10/17 02/10/17 18:59 06:59 18:59 Intake Total 275 446 3148 Output Total 1030 1255 Balance -730 -455 1260 Intake: Intake, IV Amount 317 284 4756 Meropenem 500 mg In 200 100 100 Sodium Chloride 0.9% 100 ml @ 100 mls/hr IV Q8H [facility] Rx#:[id number] Multivitamin Inj 10 ml In 1160 Amino Acids 10% 590 ml In Dextrose 70% 500 ml In Intralipids 20% 100 ml @ 50 mls/hr IV .Q24H [facility] Rx#:[id number] Oral 100 100 TPN/PPN 600 Output: Drainage 180 Left Lower Abdomen 70 Right Lower Abdomen 110 Urine 850 850 Other 405 Other: # Bowel Movements 1 Stool Characteristics Liquid Liquid Mucoid Mucoid Brown Brown Active Medications: Current Medications Clonidine HCl (Catapres) 0.1 mg PO Q4H PRN PRN Reason: sbp >160 and diastolic >100 Stop: 03/31/17 16:11 Last Admin: 02/09/17 22:13 Dose: 0.1 mg Diltiazem HCl (Cardizem) 20 mg IVP Q4HR PRN PRN Reason: HR>120 Stop: 04/02/17 08:57 Last Admin: 02/03/17 21:57 Dose: 20 mg Enalaprilat (Vasotec) 2.5 mg IVP Q4HR PRN PRN Reason: systolic BP >160 Stop: 04/02/17 11:33 Last Admin: 02/09/17 21:42 Dose: 2.5 mg Hydromorphone HCl (Dilaudid) 1 mg IVP Q4HR PRN PRN Reason: Pain (Moderate) Stop: 04/10/17 15:59 Last Admin: 02/10/17 02:31 Dose: 1 mg Hydromorphone HCl (Dilaudid) 2 mg IVP Q4HR PRN PRN Reason: Pain (Severe) Stop: 04/10/17 15:59 Last Admin: 02/10/17 13:10 Dose: 2 mg Meropenem 500 mg/ Sodium (Chloride) 100 mls @ 100 mls/hr IV Q8H [facility] Stop: 04/04/17 07:44 Last Admin: 02/10/17 17:04 Dose: 200 mls/hr Fluconazole (Diflucan) 200 mg in 100 mls @ 100 mls/hr IV Q24HR [facility] Stop: 04/07/17 04:59 Last Admin: 02/10/17 05:26 Dose: 200 mls/hr Multivitamins/Minerals 10 ml/Amino Acids/Electrolytes/Dextrose/ Fat Emulsion Intravenous 1,200 mls @ 50 mls/hr IV .Q24H [facility] Stop: 04/10/17 14:59 Last Admin: 02/10/17 17:06 Dose: 50 mls/hr Dextrose (D5w) 1,000 mls @ 50 mls/hr IV .Q20H [facility] Stop: 04/10/17 14:59 Last Admin: 02/09/17 17:12 Dose: 50 mls/hr Vancomycin HCl 1.25 gm/ Sodium (Chloride) 250 mls @ 165 mls/hr IV Q24H [facility] Stop: 04/11/17 08:59 Last Admin: 02/10/17 10:26 Dose: 165 mls/hr Erythromycin Lactobionate 500 (mg/ Sodium Chloride) 100 mls @ 100 mls/hr IV Q12HR@0800,2000 [facility] Stop: 04/11/17 07:59 Last Admin: 02/10/17 08:14 Dose: 100 mls/hr Insulin Aspart (Novolog) 0 units SUBQ Q6HR [facility]ISH PRN Reason: Protocol Stop: 03/28/17 08:59 Last Admin: 02/10/17 18:25 Dose: 4 units Lactobacillus Rhamnosus (Culturelle) 1 each PO DAILY [facility] Stop: 03/29/17 08:59 Last Admin: 02/10/17 17:03 Dose: Not Given Lorazepam (Ativan) 1 mg IVP Q4HR PRN; Protocol PRN Reason: Anxiety Stop: 04/05/17 09:56 Last Admin: 02/10/17 01:22 Dose: 1 mg Metoclopramide HCl (Reglan) 10 mg IVP Q6HR [facility] Stop: 04/09/17 11:59 Last Admin: 02/10/17 12:00 Dose: 10 mg Miscellaneous (Probiotic Screen) 1 ea PRN PRN PRN Reason: PROTOCOL Stop: 03/28/17 13:21 Miscellaneous (Vancomycin Iv Per Pharmacy) 1 ea PRN [facility] Stop: 04/04/17 05:14 Miscellaneous (Tpn Per Pharmacy) 1 ea PRN PRN PRN Reason: PROTOCOL Stop: 04/09/17 13:33 Ondansetron HCl (Zofran) 4 mg IV Q4H PRN PRN Reason: Nausea / Vomiting Stop: 04/10/17 16:57 Pantoprazole Sodium (Protonix) 40 mg IVP BID [facility] Stop: 04/01/17 16:59 Last Admin: 02/10/17 12:00 Dose: 40 mg Sodium Phosphate (Fleet Enema) 135 ml RC PRN PRN PRN Reason: Constipation Stop: 04/07/17 09:54 General: No acute distress HEENT: Atraumatic, Mucous membr. moist/pink Neck: Supple, +2 carotid pulse wo bruit Cardiovascular: Regular rate, Normal S1, Normal S2 Lungs: Other (scattered rhonchi) Abdomen: Bowel sounds (minimal), Soft Extremities: no Edema Neurological: Sensation intact Skin: no Rash Psych/Mental Status: Mood NL - Procedures Procedures: Procedures Procedure Code Date BYPASS STOMACH TO JEJUNUM, OPEN APPROACH [id number] 01/25/17 FUSION OF STOMACH AND BOWEL 55260 01/25/17 INSPECTION OF GASTROINTESTINAL TRACT, OPEN APPROACH [id number] 01/25/17 REMOVAL OF GALLBLADDER 28343 01/25/17 REOPENING OF ABDOMEN 93789 01/25/17 REPAIR STOMACH, OPEN APPROACH [id number] 01/25/17 RESECTION OF GALLBLADDER, OPEN APPROACH [id number] 01/25/17 RESPIRATORY VENTILATION, LESS THAN 24 CONSECUTIVE HOURS [id number] 01/25/17 STOMACH SURGERY PROCEDURE 89186 01/25/17 VENT MGMT INPAT INIT DAY 54191 01/25/17 Assessment/Plan - Problem List Patient Problems: All Active Problems H/O diabetes mellitus (Acute) Z86.39 H/O drug abuse (Acute) Z87.898 H/O: HTN (hypertension) (Acute) Z86.79 POSTCHOLECYSTECTOMY (Acute) UTI (urinary tract infection) (Acute) closeure og gastric perf (Acute) cplacement of new gj (Acute) h/o dementia (Acute) lysisi of adhesions (Acute) r/o sepsis (Acute) s/p surgery (Acute) septic shock (Acute) tachycardia (Acute) - Assessment Assessment: MELECIO Septic shock 2nd to acute peritonitis w/ large abcess ruptured viscus S/P exp. lap ALOC 2nd to Met Enceph type 2 DM Alzh Dementia Sinus tach Severe Malnutrition Ileus - Plan Plan: Lab - Result Diagrams 02/02/17 04:19 02/02/17 04:19 Current Medications Clonidine HCl (Catapres) 0.1 mg PO Q4H PRN PRN Reason: sbp >160 and diastolic >100 Stop: 03/31/17 16:11 Last Admin: 01/31/17 17:06 Dose: 0.1 mg Diltiazem HCl (Cardizem) 20 mg IVP Q4HR PRN PRN Reason: HR>120 Stop: 04/02/17 08:57 Last Admin: 02/01/17 09:20 Dose: 20 mg Enalaprilat (Vasotec) 2.5 mg IVP Q4HR PRN PRN Reason: systolic BP >160 Stop: 04/02/17 11:33 Hydromorphone HCl (Dilaudid) 1 mg IVP Q3H PRN PRN Reason: MODERATE PAIN Stop: 03/26/17 17:55 Last Admin: 02/02/17 09:14 Dose: 1 mg Hydromorphone HCl (Dilaudid) 2 mg IVP Q3H PRN PRN Reason: SEVERE PAIN Stop: 03/26/17 17:56 Last Admin: 02/02/17 03:40 Dose: 2 mg Metronidazole (Flagyl) 500 mg in 100 mls @ 100 mls/hr IV Q8HR [facility] Stop: 03/28/17 04:59 Last Admin: 02/02/17 13:39 Dose: 100 mls/hr Fluconazole 400mg/200mL (Diflucan) 400 mg in 200 mls @ 100 mls/hr IV Q24HR [facility] Stop: 04/02/17 16:44 Last Infusion: 02/01/17 19:20 Dose: Infused Piperacillin Sod/Tazobactam (Sod 4.5 gm/ Sodium Chloride) 100 mls @ 100 mls/hr IV Q8HR [facility] Stop: 04/02/17 18:29 Last Admin: 02/02/17 12:45 Dose: 100 mls/hr Sodium Chloride (Nacl 0.9%) 1,000 mls @ 100 mls/hr IV .Q10H [facility] Stop: 04/02/17 17:44 Last Admin: 02/02/17 05:55 Dose: 100 mls/hr Insulin Aspart (Novolog) 0 units SUBQ Q6HR [facility] PRN Reason: Protocol Stop: 03/28/17 08:59 Last Admin: 02/02/17 13:40 Dose: 4 units Lactobacillus Rhamnosus (Culturelle) 1 each PO DAILY [facility] Stop: 03/29/17 08:59 Last Admin: 02/02/17 08:56 Dose: Not Given Meperidine HCl (Demerol) 12.5 mg IVP Q2M PRN PRN Reason: POST-OP PAIN Stop: 03/27/17 19:19 Miscellaneous (Vancomycin Iv Per Pharmacy) 1 ea PRN [facility] Stop: 03/28/17 02:29 Miscellaneous (Probiotic Screen) 1 ea PRN PRN PRN Reason: PROTOCOL Stop: 03/28/17 13:21 Ondansetron HCl (Zofran) 4 mg IV Q6H PRN PRN Reason: Nausea / Vomiting Stop: 03/26/17 16:27 Last Admin: 01/31/17 17:13 Dose: 4 mg Pantoprazole Sodium (Protonix) 40 mg IVP BID [facility] Stop: 04/01/17 16:59 Last Admin: 02/02/17 08:56 Dose: Not Given WBC up to 16.6 Kidney fnc better, BUN/CR 20/1.1, Na down to 144 continue D5W, replace K, Mg f/u panculture continue Flagyl, Fluconazole, Zosyn f/u electrolytes, cbc not tolerating meals, need TPN but poor access, will need PICC line emergently pt. can't sign, no family available, will require 2 physicians signature Nutritional Asmnt/Malnutr-PDOC - Dietary Evaluation Malnutrition Findings (Please click <Entered> for more info): Nutritional Asmnt/Malnutrition Start: 01/26/17 14: 32 Text: Status: Complete Freq: Document 01/26/17 14:32 GSUN (Rec: 01/26/17 14:51 GSUN [id number]) Nutritional Asmnt/Malnutrition Patient General Information Nutritional Screening Consult Diagnosis UTI, leukocytosis maybe reactive versus sepsis Pertinent Medical Hx/Surgical Hx HTN, DM, drug abuse, dementia Subjective Information 71 year old female, homeless. RD consult for BG >180. Pt was NPO at time of visit for CT abdomen/pelvis scan. Pt was agitated and in pain during visit. Pt refused to answer RD questions, repeatedly asked about bowel prep processes, then yelled at RD to leave. Pertinent Medications Dilaudid, Zofran Pertinent Labs 01/25: A1c 6, glucose 319H Nutritional Hx/Data Height 1.73 m Height (Calculated Centimeters) 172.7 Current Weight (lbs) 69.899 kg Weight (Calculated Kilograms) 69.9 Weight (Calculated Grams) 18158.6 [place] Body Weight 140lb Weight Status Approriate GI Symptoms Cultural/Ethnic/Taoist Belief Unknown. Usual diet at home Unknown. Estimated Nutritional Goals BEE in Kcals: Using Current wt Calories/Kcals/Kg CBW 70kg Kcals Calculated 1750-2100kcal (25-30kcal/kg, ? possible sepsis) Protein: Using Current wt Protein Calculated 70g (1g/kg) Fluid: ml 1750-2100ml (1ml/kcal) Nutritional Problem 1. Problem Problem Altered nutrition related laboratory values related to Etiology DM aeb Signs/Symptoms: H&P, glucose 319H on adm Intervention/Recommendation Comments 1. NPO at time of visit. Diet advancement per MD, recommend [id number] to promtoe glycemic control. 2. Provide edu on DM as needed . Expected Outcomes/Goals Expected Outcomes/Goals 1. [place] to meet 100% of estimated nutritional needs.
--- NOTE | 2017-02-12 01:33 | Discharge Summary ---
The patient was admitted for UTI, sepsis, ____, drug abuse and dementia. The patient found to have cholecystitis, cholelithiasis. The patient underwent surgery and she was in ICU for few days then eventually, the patient improved. The patient was in stable condition on 02/10/2017, the patient was discharged to [facility] in stable condition. FINAL DIAGNOSES: Status post surgery, status post urinary tract infection, status post sepsis, status post ____, history of dementia. JOB# [id number]
== END 2017-02-10 20:50 | DRG 853 ==
LOC: ER 01:16 → MSI 07:00 → ICU 01-26 20:00 → TELE 01-30 15:45 → ICU 02-01 18:00
PROVIDERS: ADMIT Internal Medicine; ATTEND Internal Medicine
PROC: 0DQ60ZZ Repair Stomach, Open Approach (ICD-10-PCS; principal; 2017-01-26)
PROC: 0FT40ZZ Resection of Gallbladder, Open Approach (ICD-10-PCS; 2017-01-26)
PROC: 5A1935Z Respiratory Ventilation, Less than 24 Consecutive Hours (ICD-10-PCS; 2017-01-26)
PROC: 0WJP0ZZ Inspection of Gastrointestinal Tract, Open Approach (ICD-10-PCS; 2017-01-26)
PROC: 0D160ZA Bypass Stomach to Jejunum, Open Approach (ICD-10-PCS; 2017-02-02)
PROC: 05HM33Z Insertion of Infusion Device into Right Internal Jugular Vein, Percutaneous Approach (ICD-10-PCS; 2017-02-02)
PROC: 0W9G00Z Drainage of Peritoneal Cavity with Drainage Device, Open Approach (ICD-10-PCS; 2017-02-02)
PROC: 02H633Z Insertion of Infusion Device into Right Atrium, Percutaneous Approach (ICD-10-PCS; 2017-02-05)
DX: A41.9 Sepsis, unspecified organism (principal); R65.21 Severe sepsis with septic shock; N17.0 Acute kidney failure with tubular necrosis; E43 Unspecified severe protein-calorie malnutrition; G93.41 Metabolic encephalopathy; K65.1 Peritoneal abscess; K56.7 Ileus, unspecified; K28.5 Chronic or unspecified gastrojejunal ulcer with perforation; N39.0 Urinary tract infection, site not specified; I47.1 Supraventricular tachycardia; K80.10 Calculus of gallbladder with chronic cholecystitis without obstruction; G30.9 Alzheimer's disease, unspecified; E11.22 Type 2 diabetes mellitus with diabetic chronic kidney disease; E11.65 Type 2 diabetes mellitus with hyperglycemia; F19.10 Other psychoactive substance abuse, uncomplicated; F17.210 Nicotine dependence, cigarettes, uncomplicated; F02.80 Dementia in other diseases classified elsewhere, unspecified severity, without behavioral disturbance, psychotic disturbance, mood disturbance, and anxiety; B37.9 Candidiasis, unspecified; I12.9 Hypertensive chronic kidney disease with stage 1 through stage 4 chronic kidney disease, or unspecified chronic kidney disease; N18.2 Chronic kidney disease, stage 2 (mild); E87.6 Hypokalemia; E83.42 Hypomagnesemia; Z59.0 Homelessness; Z88.0 Allergy status to penicillin; Z83.3 Family history of diabetes mellitus; Z98.84 Bariatric surgery status; Z88.2 Allergy status to sulfonamides; Z88.8 Allergy status to other drugs, medicaments and biological substances; Z79.84 Long term (current) use of oral hypoglycemic drugs; Z68.23 Body mass index [BMI] 23.0-23.9, adult
CPT/HCPCS: 36415-UA; 36600-90; 71010-TC; 74000-TC; 76700-TC; 76770-TC; 80048-TC; 80053-TC; 80061-TC; 80076-TC; 80202-TC; 80320-TC; 80329-TC; 81001-TC; 81015-TC; 82465-TC; 82570-TC; 82803-TC; 82948-90; 83036-90; 83605; 83735-TC; 84100-TC; 84134-90; 84300-TC; 84443-TC; 84478-TC; 84484-TC; 84550-TC; 85007-TC; 85025-TC; 85027-TC; 85610-TC; 86592-TC; 86703-TC; 87070; 87070-90; 87075-90; 87086-90; 87205-90; 88304-TC; 88305-90; 88312-90; 90779; 90782; 90799; 93005; 94002; 94003; 94640; 94760; 97530; 97971-TC-LT; 99201; C1751; C9113; J0696; J1170; J1364; J1450; J1815; J2001; J2060; J2185; J2250; J2270; J2370; J2405; J2543; J2704; J2710; J2765; J3370; J3475; J3480; J7030; J7040; J7070; V2790; X3401; X3904; X5958; X6024; X6026; X6206; X6258; X6598; X7704; Z7610

== ENCOUNTER 2017-05-28 15:40 | Inpatient (IN) | payer BC, MEDICAID, MEDICARE ==
--- NOTE | 2017-05-28 15:59 | ED Physician Chart ---
Chief Complaint/HPI - Patient Information Date Seen:: 05/28/17 Time Seen:: 15:59 Chief Complaint:: ABDOMINAL PAIN FOR 2 DAYS History of Present Illness:: This 71-year-old female presents with a 2 day history of epigastric pain which she rates as a 10 over 10 in severity. The patient characterizes the pain as similar to ulcer pain she had a number of years ago. It has a burning characteristic. The pain does not radiate into the chest or back. The pain is associated with nausea, 3 episodes of vomiting today and belching. Patient had a bowel movement this morning but denies any diarrhea or constipation. The patient has a ostomy hole in the lower abdomen with brownish fluid. He also had coffee ground like material earlier today. Patient denies any melena. The patient has also had a headache with its onset just prior to transportation to the emergency department. Patient underwent a cholecystectomy in January of this year. Allergies:: Allergies Allergy/AdvReac Type Severity Reaction Status Date / Time Penicillins Allergy Verified 01/25/17 01:31 sulfamethoxazole Allergy Verified 01/29/17 15:15 [From Bactrim] trimethoprim [From Bactrim] Allergy Verified 01/29/17 15:15 Vitals:: Vital Signs - 8 hr 05/28/17 15:48 Temp 99.4 F HR 117 RR 16 BP 120/72 O2 Sat % 95 Review of Systems - Review of Systems General/Constitutional: Fever, Chills (patient had subjective fever and chills earlier today.), No diaphoresis, No edema, Loss of appetite Skin: Other (patient has a irritation of the skin surrounding her ostomy in the abdominal wall.) Head: Headache, No light-headedness Eyes: No loss of vision, No diplopia ENT: No earache, No sore throat, No tinnitus Neck: No neck pain, No thyromegaly, No stiffness, No mass noted Cardio Vascular: No chest pain, No orthopnea Pulmonary: No SOB, No cough, No sputum, No wheezing GI: Nausea, Vomiting, No diarrhea, Pain, No melena, No constipation, Hematemesis G/U: No dysuria, No frequency, No hematuria 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: No vaginal discharge, No abnormal vaginal bleed Musculoskeletal: No bone or joint pain, Back pain, No muscle pain Endocrine: No polyuria, No polydipsia Psychiatric: Depression, No suicidal ideation, No auditory hallucination Hematopoietic: No bruising, No lymphadenopathy Allergic/Immuno: No urticaria, No angioedema Neurological: No syncope, No weakness, Paresthesia (patient states that when her socks are off, she feels like she is still wearing them.), Headache, No seizure, No confusion Past Medical History - Past Medical History Past Medical History: DM, Other (the patient denies having hypertension but in the past has taken lisinopril.) Family History: Other (patient was taking medications to lower her cholesterol prior to the surgery in January.) Social History: Non Smoker, Alcohol, No Drug Use (as mentioned in the HPI the patient had a cholecystectomy in January of this year.), Single, Care Facility Family Medical History - Family Member Mother History Unknown: Yes Ethnicity: Unknown Living Status: Hx Family Diabetes: Yes Physical Exam - Physical Examination General/Constitutional: Awake, Well-developed, well-nourished, Alert, Non-toxic appearing Other Gen/Cons comments:: Condition is in moderate distress secondary to her complaint of abdominal pain. Head: Atraumatic Eyes: Lids, conjuctiva normal, PERRL, EOMI Other Eyes comments:: Sclerae nonicteric. No nystagmus. Skin: No ecchymosis Other Skin comments:: The patient has erythema and rash around the stomal opening in the abdominal wall. ENMT: External ears, nose nl Other ENMT comments:: The oral mucosa appeared dry. Patient is missing 2 of her upper incisors which appear to be broken off. Poor dental hygiene. Neck: Nontender, No JVD, No nuchal rigidity, No mass, No stridor Other Neck comments:: No thyromegaly. Respiratory: Nl effort/Exclusion, Clear to Auscultation, No Wheeze/Rhonchi/Rales Other Cardio Vascular comments:: The patient has a regular tachycardia in the 1:15 to 120 range. No ectopic beats. No murmurs or gallops appreciated. GI: Normal BS's, No mass/bruits, No McBurney tenderness Other GI comments:: The abdomen is not distended and there is a stomal opening in the lower abdomen which may represent a fistula. Bowel sounds were normal. And had +3 tenderness in the epigastric region without associated rebound or guarding. No palpable abdominal masses. Over and spleen were nonpalpable. : No CVA tenderness Extremities: No tenderness or effusion, Full ROM, No edema Other Extremities comments:: Patient has a PICC line in the right antecubital fossa. Neuro/Psych: Alert/oriented, Normal motor strength Misc: Normal back, No paraspinal tenderness Other Misc comments:: The patient's motor examination was consistent with her sex, age and muscle tone. Labs/Radiology/EKG Results - Lab Results Results: Laboratory Tests 05/28/17 05/28/17 05/28/17 16:22 16:22 16:22 WBC 12.8 H D RBC 3.43 L Hgb 10.4 L Hct 30.9 L D MCV 90.0 MCH 30.4 MCHC Differential 33.8 RDW 15.0 Plt Count 454 H D MPV 6.9 Neutrophils % 71.5 Lymphocytes % 18.6 L Monocytes % 7.3 Eosinophils % 2.0 Basophils % 0.6 Sodium 133 L Potassium 4.1 Chloride 100 Carbon Dioxide 29.7 Anion Gap 7.4 BUN 41 H Creatinine 1.0 Est GFR ( Amer) > 60.0 Est GFR (Non-Af Amer) 58.4 BUN/Creatinine Ratio 41.0 Glucose 117 H Whole Bld Lactic Acid 1.25 Calcium 9.5 Total Bilirubin 0.3 AST 40 H ALT 49 Alkaline Phosphatase 119 H Troponin I Total Protein 7.0 Albumin 3.2 L Globulin 3.8 Albumin/Globulin Ratio 0.8 L Amylase 60 Lipase 33 05/28/17 16:22 WBC RBC Hgb Hct MCV MCH MCHC Differential RDW Plt Count MPV Neutrophils % Lymphocytes % Monocytes % Eosinophils % Basophils % Sodium Potassium Chloride Carbon Dioxide Anion Gap BUN Creatinine Est GFR ( Amer) Est GFR (Non-Af Amer) BUN/Creatinine Ratio Glucose Whole Bld Lactic Acid Calcium Total Bilirubin AST ALT Alkaline Phosphatase Troponin I 0.01 Total Protein Albumin Globulin Albumin/Globulin Ratio Amylase Lipase CT scan of the abdomen and pelvis was Read by the radiologist. It showed a defect in the abdominal wall consistent with recent surgery. There was a small bowel herniation into this region without evidence for strangulation. There was no free fluid within the abdomen. The uterus was enlarged due to fibroids. There was thickening of the wall in the region of the cecum and the rectum. There was calcification and evidence of ASVD. there was no mention of AAA or free air. - EKG Interpretations EKG Time:: 17:01 Rate & Rhythm: SINUS TACHYCARDIA at a rate of 102. NO ECTOPY [place]: axis normal Intervals: normal SC interval. Normal QRS duration. Normal normal QT interval. Comments:: No ST segment elevation or depression. Aside from mild tachycardia the EKG is normal. No ischemic findings. Laboratory Tests 05/28/17 05/28/17 05/28/17 16:22 16:22 16:22 WBC 12.8 H D RBC 3.43 L Hgb 10.4 L Hct 30.9 L D MCV 90.0 MCH 30.4 MCHC Differential 33.8 RDW 15.0 Plt Count 454 H D MPV 6.9 Neutrophils % 71.5 Lymphocytes % 18.6 L Monocytes % 7.3 Eosinophils % 2.0 Basophils % 0.6 Sodium 133 L Potassium 4.1 Chloride 100 Carbon Dioxide 29.7 Anion Gap 7.4 BUN 41 H Creatinine 1.0 Est GFR ( Amer) > 60.0 Est GFR (Non-Af Amer) 58.4 BUN/Creatinine Ratio 41.0 Glucose 117 H Whole Bld Lactic Acid 1.25 Calcium 9.5 Total Bilirubin 0.3 AST 40 H ALT 49 Alkaline Phosphatase 119 H Troponin I Total Protein 7.0 Albumin 3.2 L Globulin 3.8 Albumin/Globulin Ratio 0.8 L Amylase 60 Lipase 33 05/28/17 16:22 WBC RBC Hgb Hct MCV MCH MCHC Differential RDW Plt Count MPV Neutrophils % Lymphocytes % Monocytes % Eosinophils % Basophils % Sodium Potassium Chloride Carbon Dioxide Anion Gap BUN Creatinine Est GFR ( Amer) Est GFR (Non-Af Amer) BUN/Creatinine Ratio Glucose Whole Bld Lactic Acid Calcium Total Bilirubin AST ALT Alkaline Phosphatase Troponin I 0.01 Total Protein Albumin Globulin Albumin/Globulin Ratio Amylase Lipase The CBC shows a mild leukocytosis of 12.8 and a mild anemia with a hemoglobin of 30.9. Aside from a serum sodium of 133 the other electrolytes were within normal parameters. Liver function studies show a slightly elevated alkaline phosphatase of 119 and elevated AST of 40. Amylase and lipase were within the normal range. The serum troponin was 0.01. Assessment - Assessment General Assessment: CASE SUMMARY: this 71-year-old female was referred to the emergency department for evaluation of abdominal pain. The pain has started two days ago and was becoming more severe. The pain was localized to the epigastric region with radiation into the back. The patient had multiple episodes of vomiting prior to admission. On a couple of these episodes the patient said it look like coffee grounds. the initial blood pressure was 86/52. The pulse rate was in the 115 to 120 range. On physical examination the patient had tenderness that was localized to the epigastric region. There was no associated rebound or guarding. Pulses were intact in both lower extremities. Laboratory studies showed a mild leukocytosis in the 13,000 range. There was also evidence for moderate anemia with a hemoglobin of 10.4. There was mild elevation of the BUN of 41 with a normal creatinine. I took this as further evidence for G.I. bleeding. The lactic acid was within the normal range. Both the amylase and lipase were within the normal range. The patient was treated with repeated doses of Zofran and morphine. She also received 2 L of normal saline while in the emergency department. The patient's pain was under control and she had no further episodes of vomiting while in the emergency department. She received 2 L of normal saline with the blood pressure going to 120/72. I discussed the case with Dr Benito and the patient will be admitted to a Med-Surg bed for further diagnostic evaluation and treatment as indicated. Admitted in stable condition. MDM DDX FOR EPIGASTRIC PAIN AND VOMITING: NOT Pancreatitis based on a normal amylase and lipase. NOT Acute cholecystitis based on her history of recent Cholecystectomy. NOT Myocardial Infarction based on a negative troponin, an EKG with no ischemic findings, and tenderness in the epigastric region. NOT Perforated bowel based on CT result. NOT Incarcerated hernia based on the CT findings. ED Septic Shock - . Is Septic Shock (SBP<90, OR Lactate>4 mmol\L) present?: No - <6hrs of presentation: Vital Signs: Vital Signs - 8 hr 05/28/17 15:48 Temp 99.4 F HR 117 RR 16 BP 120/72 O2 Sat % 95 Reassessment (Disposition) - Reassessment Reassessment Condition:: Improved - Diagnosis Diagnosis:: EPIGASTRIC PAIN DUE TO ACUTE GASTRITIS. - Aftercare/Follow up Instructions Aftercare/Follow-Up Instructions:: Counseled pt regarding lab results/diagnosis & need follow up, Counseled pt & family regarding lab results/diagnosis & need follow up ED Discharge Plan - Patient Disposition Admit/Discharge/Transfer: Acute Care w/in this hosp
[2017-05-28] MEDS ORDERED: Sodium Chloride 0.9% 1,000 ML IV ONE (16:13)
[2017-05-28] MEDS ORDERED: Morphine Sulfate 2 mg/mL 1mL Syr ONE (16:14)
[2017-05-28 16:33] LABS: % BASOPHILS 0.6 % (0.0-2.0); % LYMPHOCYTES 18.6 % (20.0-50.0); % MONOCYTES 7.3 % (2.0-10.0); % NEUTROPHILS 71.5 % (40.0-80.0); HEMOGLOBIN 10.4 gm/dL (11.7-16.1); MEAN CORPUSCULAR HEMOGLOBIN 30.4 pg (27.0-31.0); MEAN CORPUSCULAR HGB CONC 33.8 pg (28.0-36.0); MEAN PLATELET VOLUME 6.9 fl; NEUTROPHILE ABSOLUTE 9.1 Th/cmm (1.8-8.0); RED BLOOD COUNT 3.43 Mil/cmm (3.80-5.20)
[2017-05-28 16:40] LABS: HEMATOCRIT 30.9 % (35.0-45.0); PLATELET COUNT 454 Th/cmm (150-400); WHITE BLOOD COUNT 12.8 Th/cmm (4.8-10.8)
[2017-05-28 16:53] LABS: ALB/GLOB RATIO 0.8 (1.0-1.8); ALKALINE PHOSPHATASE 119 U/L (34-104); AMYLASE SERUM 60 U/L (29-103); ANION GAP 7.4 (7.0-16.0); BILIRUBIN,TOTAL 0.3 mg/dL (0.3-1.0); BUN - UREA NITROGEN 41 mg/dL (7-25); CALCIUM SERUM 9.5 mg/dL (8.6-10.3); CARBON DIOXIDE 29.7 mEq/L (21.0-31.0); CHLORIDE 100 mEq/L (98-107); GLUCOSE 117 mg/dL (70-105); LIPASE 33 U/L (11-82); POTASSIUM SERUM 4.1 mEq/L (3.5-5.1); SGOT 40 U/L (13-39); SGPT/ALT 49 U/L (7-52); SODIUM SERUM 133 mEq/L (136-145)
[2017-05-28] MEDS ORDERED: Morphine Sulfate 4 mg/mL 1mL Syr ONE ×2 (17:08→20:25)
[2017-05-28 19:20] LABS: URINE COLOR YELLOW
[2017-05-28 19:21] LABS: URINE BILIRUBIN NEGATIVE (NEGATIVE); URINE BLOOD TRACE (NEGATIVE); URINE GLUCOSE (UA) NEGATIVE (NEGATIVE); URINE KETONE NEGATIVE (NEGATIVE); URINE PH 6.5; URINE PROTEIN TRACE mg/dL (NEGATIVE); URINE UROBILINOGEN 0.2 E.U./dL (0.2 - 1.0)
[2017-05-28 19:22] LABS: URINE BACTERIA 1+ /hpf (NONE SEEN); URINE EPITHELIAL CELLS FEW /lpf (FEW)
[2017-05-28 19:24] LABS: URINE WBC 50-100 /hpf (0-5)
[2017-05-28] MEDS ORDERED: Morphine Sulfate 4 mg/mL 1mL Syr IVP STA (20:25)
[2017-05-28] MEDS ORDERED: Sodium Chloride 0.9% 1,000 ML IV SCH (20:51)
[2017-05-28] MEDS: INSULIN ASPART SLIDING SCALE 100 UNITS/ML UNIT SUBQ SCH (22:15)
--- NOTE | 2017-05-28 22:37 | Consultation ---
Consult Note - Consult Note Service Date: 05/28/17 Referring Physician: Antonio Aggarwal Consult Note: PHYSICIAN Consultation Note: Date of Admission: 05/28/17 Purpose of Consultation: Abdominal pain. Chief Complaint: Patient ROSAMARIA PRINCE was admitted to [facility] Medical[facility] Unit I with GASTRITIS,UTERINE FIBROIDS. History of Present Illness: Patient is a 71 of remember the past medical history of diabetes mellitus type II, hypertension, dementia with nonhealing gastrocutaneous fistula presented today for left upper quadrant abdominal pain. Patient denies any fever or chills. On initial evaluation her temperature was 99.4F and her WBC count was 12,000. She had associated nausea and vomiting. Urinalysis showed hazy urine with a small neck request and 50-100 and 1+ bacteria. She was started on Rocephin. ID consult was called for further antibiotic management. Past Medical History: Diabetes mellitus type 2 , hypertension, dementia. Nonhealing gastrocutaneous fistula. Allergies: Patient is allergic to penicillin but has tolerated Rocephin in the past. She is also tolerated meropenem in the past Allergy/AdvReac Type Severity Reaction Status Date / Time Penicillins Allergy Verified 01/25/17 01:31 sulfamethoxazole Allergy Verified 01/29/17 15:15 [From Bactrim] trimethoprim [From Bactrim] Allergy Verified 01/29/17 15:15 Vital Signs Temp 99.4 F 05/28/17 15:48 Pulse 106 05/28/17 18:03 Resp 16 05/28/17 18:03 BP 108/50 05/28/17 18:03 Pulse Ox 97 05/28/17 18:03 Laboratory Results - last 24 hr 05/28/17 19:00 Urine Source CATH Urine Color YELLOW Urine Clarity HAZY Urine pH 6.5 Ur Specific [place] 1.015 Urine Protein TRACE Urine Glucose (UA) NEGATIVE Urine Ketones NEGATIVE Urine Blood TRACE Urine Nitrate NEGATIVE Urine Bilirubin NEGATIVE Urine Urobilinogen 0.2 Ur Leukocyte Esterase SMALL H Urine RBC 2-5 Urine WBC 50-100 H Ur Epithelial Cells FEW Urine Bacteria 1+ H Urine Mucus FEW Home Medication Medication Instructions Recorded Type Clonidine HCl [Catapres] 0.2 mg PO DAILY 05/28/17 History Insulin Human Regular [NovoLIN R*] See Protocol SUBQ ACHS 05/28/17 History Morphine Sulfate 2 mg PO QID PRN 05/28/17 History Ondansetron [Zofran ODT] 4 mg PO Q6HR PRN 05/28/17 History Oxycodone HCl/Acetaminophen 1 tab PO QID PRN 05/28/17 History [Endocet 5-325 Tablet] Pantoprazole [Protonix] 40 mg PO Q12H 05/28/17 History Zolpidem Tartrate [Ambien] 5 mg PO HS PRN 05/28/17 History Current Medications Generic Name Dose Route Start Last Admin Trade Name Freq PRN Reason Stop Dose Admin Sodium Chloride 1,000 mls @ 100 mls/hr 05/28/17 20:51 Nacl 0.9% IV 07/27/17 20:50 .Q10H ANISH Ceftriaxone Sodium 1 gm/ 50 mls @ 100 mls/hr 05/28/17 22:00 Sodium Chloride IV 07/27/17 21:59 Q24HR [facility] Insulin Aspart 0 units 05/28/17 22:15 Novolog Insulin Sliding Scale SUBQ 07/27/17 22:14 ACHS [facility] Protocol Miscellaneous 0.2 mg 05/29/17 09:00 Clonidine Hcl [Catapres] PO 07/28/17 08:59 DAILY [facility] Morphine Sulfate 2 mg 05/28/17 20:51 Morphine Ir PO 07/27/17 20:50 QID PRN Pain (Severe) Ondansetron HCl 4 mg 05/28/17 20:51 Zofran Odt PO 07/27/17 20:50 Q6HR PRN Nausea Oxycodone/Acetaminophen 1 tab 05/28/17 20:51 Percocet 5/325mg Oral Tab PO 07/27/17 20:50 QID PRN Pain (Moderate) Pantoprazole Sodium 40 mg 05/28/17 22:00 Protonix PO 07/27/17 21:59 Q12HR ANISH Zolpidem Tartrate 5 mg 05/28/17 20:51 Ambien PO 07/27/17 20:50 HS PRN Insomnia Review of Systems: A 12 point ROS was reviewed with the pertinent positive and negatives noted in the HPI. Physical Exam: General: Comfortable, not in distress. HEENT: Head is normocephalic, atraumatic. Oral cavity: Moist, pink tongue. Eyes: Pallor is present. No icterus. Pupils PERRLA. EOMI. Neck: Supple, no JVD. No use of X his neck muscles. No nephropathy. Not thyromegaly. Cardio: S1 and S2 within normal limits regular rhythm no murmur or gallop. . Respiratory: vesicular breath sound, No Crackles No Wheezing . Abdominal: There is a gastrocutaneous Fistula in Epigastric Area. It Is Draining Fluid. There is some surrounding erythema. Patient has some tenderness in the left upper quadrant. Genital/Urinary: Deferred Extremities: No cyanosis, no clubbing, no edema. Neurological: Alert, awake, oriented 3. Assessment: 1. Abdominal pain, unknown etiology. 2. Gastrocutaneous fistula. 3. UTI. 4. Leukocytosis. Plan: Continue Rocephin at this time. Asked Dr. Coyne to see the patient. Thank you, Dr. Aggarwal for involving me taking care of this patient. Signed, Michael Arias M.D. 05/28/[id number]
[2017-05-28] MEDS: Pantoprazole 40 mg EC Tab PO SCH (22:51)
[2017-05-29] MEDS: cefTRIAXone 1 GM in Sodium Chloride 0.9% 50 ML IV SCH ×2 (00:49→22:01)
[2017-05-29 02:50] VITALS: BP 158/58
[2017-05-29] MEDS: APAP/Oxycodone 5/325mg Oral Tab PO PRN ×2 (05:58→13:27)
[2017-05-29 06:44] LABS: % BASOPHILS 0.6 % (0.0-2.0); % EOSINOPHILS 2.3 % (0.0-5.0); % LYMPHOCYTES 22.9 % (20.0-50.0); % MONOCYTES 8.1 % (2.0-10.0); % NEUTROPHILS 66.1 % (40.0-80.0); HEMATOCRIT 28.8 % (35.0-45.0); HEMOGLOBIN 9.6 gm/dL (11.7-16.1); MEAN CELL VOLUME 92.1 fl (81-100); MEAN CORPUSCULAR HEMOGLOBIN 30.7 pg (27.0-31.0); MEAN CORPUSCULAR HGB CONC 33.4 pg (28.0-36.0); MEAN PLATELET VOLUME 7.1 fl; NEUTROPHILE ABSOLUTE 6.5 Th/cmm (1.8-8.0); RED BLOOD COUNT 3.13 Mil/cmm (3.80-5.20); RED CELL DISTRIBUTION WIDTH 14.7 % (11.5-20.0)
[2017-05-29 06:47] LABS: PLATELET COUNT 343 Th/cmm (150-400); WHITE BLOOD COUNT 9.8 Th/cmm (4.8-10.8)
[2017-05-29 07:05] LABS: ANION GAP 8.1 (7.0-16.0); BUN - UREA NITROGEN 36 mg/dL (7-25); BUN/CREATININE RATIO 32.7; CALCIUM SERUM 9.1 mg/dL (8.6-10.3); CARBON DIOXIDE 26.9 mEq/L (21.0-31.0); CHLORIDE 107 mEq/L (98-107); CHOLESTEROL 107 mg/dL (<200); CREATININE - SERUM 1.1 mg/dL (0.6-1.2); GLUCOSE 101 mg/dL (70-105); SODIUM SERUM 138 mEq/L (136-145); TRIGLYCERIDES 89 mg/dL (<150)
--- NOTE | 2017-05-29 09:19 | General Progress Note ---
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 patient was on heavy drugs then. Denies drugs now has fistulas midadbominal incision. Plan : UGI series via NGT Objective - Results Result Diagrams: 05/29/17 06:35 05/29/17 06:35 Recent Labs: Laboratory Last Values WBC 9.8 Th/cmm (4.8-10.8) D 05/29/17 06:35 RBC 3.13 Mil/cmm (3.80-5.20) L 05/29/17 06:35 Hgb 9.6 gm/dL (11.7-16.1) L 05/29/17 06:35 Hct 28.8 % (35.0-45.0) L 05/29/17 06:35 MCV 92.1 fl (81-100) 05/29/17 06:35 MCH 30.7 pg (27.0-31.0) 05/29/17 06:35 MCHC Differential 33.4 pg (28.0-36.0) 05/29/17 06:35 RDW 14.7 % (11.5-20.0) 05/29/17 06:35 Plt Count 343 Th/cmm (150-400) D 05/29/17 06:35 MPV 7.1 fl 05/29/17 06:35 Neutrophils % 66.1 % (40.0-80.0) 05/29/17 06:35 Lymphocytes % 22.9 % (20.0-50.0) 05/29/17 06:35 Monocytes % 8.1 % (2.0-10.0) 05/29/17 06:35 Eosinophils % 2.3 % (0.0-5.0) 05/29/17 06:35 Basophils % 0.6 % (0.0-2.0) 05/29/17 06:35 Sodium 138 mEq/L (136-145) 05/29/17 06:35 Potassium 4.0 mEq/L (3.5-5.1) 05/29/17 06:35 Chloride 107 mEq/L (98-107) 05/29/17 06:35 Carbon Dioxide 26.9 mEq/L (21.0-31.0) 05/29/17 06:35 Anion Gap 8.1 (7.0-16.0) 05/29/17 06:35 BUN 36 mg/dL (7-25) H 05/29/17 06:35 Creatinine 1.1 mg/dL (0.6-1.2) 05/29/17 06:35 Est GFR ( Amer) > 60.0 ml/min (>90) 05/29/17 06:35 Est GFR (Non-Af Amer) 52.3 ml/min 05/29/17 06:35 BUN/Creatinine Ratio 32.7 05/29/17 06:35 Glucose 101 mg/dL (70-105) 05/29/17 06:35 POC Glucose 135 MG/DL (70 - 105) H 05/28/17 22:19 Whole Bld Lactic Acid 1.25 mmol/L (0.60-1.99) 05/28/17 16:22 Calcium 9.1 mg/dL (8.6-10.3) 05/29/17 06:35 Total Bilirubin 0.3 mg/dL (0.3-1.0) 05/28/17 16:22 AST 40 U/L (13-39) H 05/28/17 16:22 ALT 49 U/L (7-52) 05/28/17 16:22 Alkaline Phosphatase 119 U/L (34-104) H 05/28/17 16:22 Troponin I 0.01 ng/mL (0.01-0.05) 05/28/17 16:22 Total Protein 7.0 gm/dL (6.0-8.3) 05/28/17 16:22 Albumin 3.2 gm/dL (3.7-5.3) L 05/28/17 16:22 Globulin 3.8 gm/dL 05/28/17 16:22 Albumin/Globulin Ratio 0.8 (1.0-1.8) L 05/28/17 16:22 Triglycerides 89 mg/dL (<150) 05/29/17 06:35 Cholesterol 107 mg/dL (<200) 05/29/17 06:35 LDL Cholesterol Direct 78 mg/dL (75-193) 05/29/17 06:35 HDL Cholesterol 23 mg/dL (23-92) 05/29/17 06:35 Amylase 60 U/L (29-103) 05/28/17 16:22 Lipase 33 U/L (11-82) 05/28/17 16:22 TSH 1.14 uIU/ml (0.34-5.60) 05/29/17 06:35 Urine Source CATH 05/28/17 19:00 Urine Color YELLOW 05/28/17 19:00 Urine Clarity HAZY (CLEAR) 05/28/17 19:00 Urine pH 6.5 05/28/17 19:00 Ur Specific [place] 1.015 (1.005-1.030) 05/28/17 19:00 Urine Protein TRACE mg/dL (NEGATIVE) 05/28/17 19:00 Urine Glucose (UA) NEGATIVE mg/dL (NEGATIVE) 05/28/17 19:00 Urine Ketones NEGATIVE mg/dL (NEGATIVE) 05/28/17 19:00 Urine Blood TRACE (NEGATIVE) 05/28/17 19:00 Urine Nitrate NEGATIVE (NEGATIVE) 05/28/17 19:00 Urine Bilirubin NEGATIVE (NEGATIVE) 05/28/17 19:00 Urine Urobilinogen 0.2 E.U./dL (0.2 - 1.0) 05/28/17 19:00 Ur Leukocyte Esterase SMALL (NEGATIVE) H 05/28/17 19:00 Urine RBC 2-5 /hpf (0-5) 05/28/17 19:00 Urine WBC 50-100 /hpf (0-5) H 05/28/17 19:00 Ur Epithelial Cells FEW /lpf (FEW) 05/28/17 19:00 Urine Bacteria 1+ /hpf (NONE SEEN) H 05/28/17 19:00 Urine Mucus FEW /lpf (FEW) 05/28/17 19:00 - Physical Exam Vitals and I&O: Vital Signs Temp 97.6 F 05/29/17 08:00 Pulse 87 05/29/17 08:00 Resp 20 05/29/17 08:00 BP 103/55 05/29/17 08:00 Pulse Ox 100 05/29/17 08:00 Intake & Output 05/28/17 05/29/17 05/29/17 18:59 06:59 18:59 Intake Total 120 Balance 120 Weight (lbs) 66.678 kg Intake: Oral 120 Other: # Voids 1 # Bowel Movements 0 Active Medications: Current Medications Clonidine HCl (Catapres) 0.2 mg PO DAILY REPLACED BY [facility] Stop: 07/28/17 08:59 Sodium Chloride (Nacl 0.9%) 1,000 mls @ 100 mls/hr IV .Q10H REPLACED BY [facility] Stop: 07/27/17 20:50 Last Admin: 05/29/17 00:56 Dose: 100 mls/hr Ceftriaxone Sodium 1 gm/ (Sodium Chloride) 50 mls @ 100 mls/hr IV Q24HR ANISH Stop: 07/27/17 22:59 Last Admin: 05/29/17 00:49 Dose: 100 mls/hr Insulin Aspart (Novolog Insulin Sliding Scale) 0 units SUBQ ACHS ANISH PRN Reason: Protocol Stop: 07/27/17 22:14 Last Admin: 05/28/17 22:15 Dose: Not Given Miscellaneous (Tpn Per Pharmacy) 1 ea MC DAILY REPLACED BY [facility] Stop: 07/28/17 08:59 Morphine Sulfate (Morphine Ir) 2 mg PO QID PRN PRN Reason: Pain (Severe) Stop: 07/27/17 20:50 Ondansetron HCl (Zofran Odt) 4 mg PO Q6HR PRN PRN Reason: Nausea Stop: 07/27/17 20:50 Last Admin: 05/29/17 05:56 Dose: 4 mg Oxycodone/Acetaminophen (Percocet 5/325mg Oral Tab) 1 tab PO QID PRN PRN Reason: Pain (Moderate) Stop: 07/27/17 20:50 Last Admin: 05/29/17 05:58 Dose: 1 tab Pantoprazole Sodium (Protonix) 40 mg PO Q12HR REPLACED BY [facility] Stop: 07/27/17 21:59 Last Admin: 05/28/17 22:51 Dose: 40 mg Zolpidem Tartrate (Ambien) 5 mg PO HS PRN PRN Reason: Insomnia Stop: 07/27/17 20:50 Last Admin: 05/28/17 23:38 Dose: 5 mg - Procedures Procedures: Procedures Procedure Code Date BYPASS STOMACH TO JEJUNUM, OPEN APPROACH [id number] 01/25/17 DRAINAGE OF PERITONEAL CAVITY WITH DRAIN DEV, OPEN APPROACH [id number] 01/25/17 FUSION OF STOMACH AND BOWEL 09220 01/25/17 INSERT INFUSION DEV IN R INT JUGULAR VEIN, PERC [id number] 01/25/17 INSERTION OF INFUSION DEVICE INTO R ATRIUM, PERC APPROACH [id number] 01/25/17 INSPECTION OF GASTROINTESTINAL TRACT, OPEN APPROACH [id number] 01/25/17 REMOVAL OF GALLBLADDER 27749 01/25/17 REOPENING OF ABDOMEN 45418 01/25/17 REPAIR STOMACH, OPEN APPROACH [id number] 01/25/17 RESECTION OF GALLBLADDER, OPEN APPROACH [id number] 01/25/17 RESPIRATORY VENTILATION, LESS THAN 24 CONSECUTIVE HOURS [id number] 01/25/17 STOMACH SURGERY PROCEDURE 61738 01/25/17 VENT MGMT INPAT INIT DAY 17676 01/25/17 Assessment/Plan - Problem List Patient Problems: All Active Problems H/O diabetes mellitus (Acute) Z86.39 H/O drug abuse (Acute) Z87.898 H/O: HTN (hypertension) (Acute) Z86.79 POSTCHOLECYSTECTOMY (Acute) UTI (urinary tract infection) (Acute) closeure og gastric perf (Acute) cplacement of new gj (Acute) h/o dementia (Acute) lysisi of adhesions (Acute) r/o sepsis (Acute) s/p surgery (Acute) septic shock (Acute) tachycardia (Acute)
[2017-05-29] MEDS ORDERED: DEXT IV SCH (09:45)
[2017-05-29] MEDS ORDERED: AMINO ACIDS IV SCH (09:45)
[2017-05-29] MEDS: Pantoprazole 40 mg EC Tab PO SCH ×2 (10:00→21:56)
--- NOTE | 2017-05-29 11:19 | Diagnostic Imaging Report ---
Exam: CT examination abdomen pelvis HISTORY: Abdominal pain Total DLP equals 349 CTDI equals 6.9 Findings Multiple contiguous thin section of the abdomen pelvis obtained from lower thorax to pubic symphysis without the administration of oral or intravenous contrast material therefore the study is limited The study demonstrates normal aeration of lung parenchyma the bases There is evidence of extensive vascular calcifications. Spleen and liver intact there is evidence of splenomegaly. The pancreas is normal. The adrenal glands are intact. The kidneys demonstrate no evidence of obstructive uropathy or nephrolithiasis. There is evidence for midline incision with dehiscence of anterior abdominal wall and the small herniation of small bowel loops in the rectus sheath. There is no evidence of strangulation. Small collections of air is noted anterior abdominal wall. There is evidence of for prominence of mucosal pattern of the right colon colitis cannot be excluded. The urinary bladder is intact. Enlarged fibroid uterus appreciated. The rectal wall is a prominent with the fullness of the rectosigmoid junction colonoscopy recommended recommended. IMPRESSION: 1. Dehiscence of the anterior abdominal wall midline with air collection. 2. Small protrusions small bowel into the abdominal incision opening without strangulation. 3. Extensive atherosclerotic changes throughout the abdominal vessels. 4. Enlarged fibroid uterus 5 Question of edema of the cecum with the findings suggestive of colitis. 6 Thickening of the rectal wall mass cannot be excluded clinical correlation and colonoscopy is recommended.
--- NOTE | 2017-05-29 12:52 | History and Physical ---
History of Present Illness - HPI Chief Complaint: abdominal pain HPI: 71 year old female patient presented with c/o epigastric pain 08/16 patient states pain does not radiated c/o nausea c/o vomiting patient has ostomy hole in lower abd with brownish fluid s/p cholecystectomy january Vital Signs: Last Vital Signs Temp 97.4 F 05/29/17 08:00 Pulse 87 05/29/17 10:00 Resp 19 05/29/17 08:00 BP 107/60 05/29/17 08:00 Pulse Ox 100 05/29/17 08:00 Past Medical History Cardiovascular: Report: HTN Endocrine: Report: Diabetes - Past Surgical History Past Surgical History: Cholecystectomy Family Medical History - Family Member Mother History Unknown: Yes Ethnicity: Unknown Living Status: Hx Family Diabetes: Yes Social History Smoke: No Alcohol: None Drugs: None Lives: [facility] Maintenance Health Maintenance: Other - Medications Home Medications: Home Medication Medication Instructions Recorded Type Clonidine HCl [Catapres] 0.2 mg PO DAILY 05/28/17 History Insulin Human Regular [NovoLIN R*] See Protocol SUBQ ACHS 05/28/17 History Morphine Sulfate 2 mg PO QID PRN 05/28/17 History Ondansetron [Zofran ODT] 4 mg PO Q6HR PRN 05/28/17 History Oxycodone HCl/Acetaminophen 1 tab PO QID PRN 05/28/17 History [Endocet 5-325 Tablet] Pantoprazole [Protonix] 40 mg PO Q12H 05/28/17 History Zolpidem Tartrate [Ambien] 5 mg PO HS PRN 05/28/17 History - Allergies Allergies/Adverse Reactions: Allergies Allergy/AdvReac Type Severity Reaction Status Date / Time Penicillins Allergy Verified 01/25/17 01:31 sulfamethoxazole Allergy Verified 01/29/17 15:15 [From Bactrim] trimethoprim [From Bactrim] Allergy Verified 01/29/17 15:15 Review of Systems - Review of Systems Constitutional: Report: Weakness Eyes: Report: No Significant ENT: Report: No Significant Respiratory: Report: No Significant Cardiovascular: Report: No Significant Gastrointestinal: Report: Nausea, Vomiting, Abdominal Pain Genitourinary: Report: No Significant Musculoskeletal: Report: No Significant Skin: Report: No Significant Neurological: Report: No Significant Physical Exam - Physical Exam HEENT: Report: Ears Nose Throat within normal limits Neck: Report: Within normal limits Cardiovascular Systems: Report: +s1/s2 noted Respiratory: Report: Breath Sounds are within normal limits Other Systems Exam: ostomy hole lower abd brownish fluid discharge - Lab Results All Lab Results last 24 hours: Laboratory Last Values WBC 9.8 Th/cmm (4.8-10.8) D 05/29/17 06:35 RBC 3.13 Mil/cmm (3.80-5.20) L 05/29/17 06:35 Hgb 9.6 gm/dL (11.7-16.1) L 05/29/17 06:35 Hct 28.8 % (35.0-45.0) L 05/29/17 06:35 MCV 92.1 fl (81-100) 05/29/17 06:35 MCH 30.7 pg (27.0-31.0) 05/29/17 06:35 MCHC Differential 33.4 pg (28.0-36.0) 05/29/17 06:35 RDW 14.7 % (11.5-20.0) 05/29/17 06:35 Plt Count 343 Th/cmm (150-400) D 05/29/17 06:35 MPV 7.1 fl 05/29/17 06:35 Neutrophils % 66.1 % (40.0-80.0) 05/29/17 06:35 Lymphocytes % 22.9 % (20.0-50.0) 05/29/17 06:35 Monocytes % 8.1 % (2.0-10.0) 05/29/17 06:35 Eosinophils % 2.3 % (0.0-5.0) 05/29/17 06:35 Basophils % 0.6 % (0.0-2.0) 05/29/17 06:35 Sodium 138 mEq/L (136-145) 05/29/17 06:35 Potassium 4.0 mEq/L (3.5-5.1) 05/29/17 06:35 Chloride 107 mEq/L (98-107) 05/29/17 06:35 Carbon Dioxide 26.9 mEq/L (21.0-31.0) 05/29/17 06:35 Anion Gap 8.1 (7.0-16.0) 05/29/17 06:35 BUN 36 mg/dL (7-25) H 05/29/17 06:35 Creatinine 1.1 mg/dL (0.6-1.2) 05/29/17 06:35 Est GFR ( Amer) > 60.0 ml/min (>90) 05/29/17 06:35 Est GFR (Non-Af Amer) 52.3 ml/min 05/29/17 06:35 BUN/Creatinine Ratio 32.7 05/29/17 06:35 Glucose 101 mg/dL (70-105) 05/29/17 06:35 POC Glucose 135 MG/DL (70 - 105) H 05/28/17 22:19 Whole Bld Lactic Acid 1.25 mmol/L (0.60-1.99) 05/28/17 16:22 Calcium 9.1 mg/dL (8.6-10.3) 05/29/17 06:35 Total Bilirubin 0.3 mg/dL (0.3-1.0) 05/28/17 16:22 AST 40 U/L (13-39) H 05/28/17 16:22 ALT 49 U/L (7-52) 05/28/17 16:22 Alkaline Phosphatase 119 U/L (34-104) H 05/28/17 16:22 Troponin I 0.01 ng/mL (0.01-0.05) 05/28/17 16:22 Total Protein 7.0 gm/dL (6.0-8.3) 05/28/17 16:22 Albumin 3.2 gm/dL (3.7-5.3) L 05/28/17 16:22 Globulin 3.8 gm/dL 05/28/17 16:22 Albumin/Globulin Ratio 0.8 (1.0-1.8) L 05/28/17 16:22 Triglycerides 89 mg/dL (<150) 05/29/17 06:35 Cholesterol 107 mg/dL (<200) 05/29/17 06:35 LDL Cholesterol Direct 78 mg/dL (75-193) 05/29/17 06:35 HDL Cholesterol 23 mg/dL (23-92) 05/29/17 06:35 Amylase 60 U/L (29-103) 05/28/17 16:22 Lipase 33 U/L (11-82) 05/28/17 16:22 TSH 1.14 uIU/ml (0.34-5.60) 05/29/17 06:35 Urine Source CATH 05/28/17 19:00 Urine Color YELLOW 05/28/17 19:00 Urine Clarity HAZY (CLEAR) 05/28/17 19:00 Urine pH 6.5 05/28/17 19:00 Ur Specific [place] 1.015 (1.005-1.030) 05/28/17 19:00 Urine Protein TRACE mg/dL (NEGATIVE) 05/28/17 19:00 Urine Glucose (UA) NEGATIVE mg/dL (NEGATIVE) 05/28/17 19:00 Urine Ketones NEGATIVE mg/dL (NEGATIVE) 05/28/17 19:00 Urine Blood TRACE (NEGATIVE) 05/28/17 19:00 Urine Nitrate NEGATIVE (NEGATIVE) 05/28/17 19:00 Urine Bilirubin NEGATIVE (NEGATIVE) 05/28/17 19:00 Urine Urobilinogen 0.2 E.U./dL (0.2 - 1.0) 05/28/17 19:00 Ur Leukocyte Esterase SMALL (NEGATIVE) H 05/28/17 19:00 Urine RBC 2-5 /hpf (0-5) 05/28/17 19:00 Urine WBC 50-100 /hpf (0-5) H 05/28/17 19:00 Ur Epithelial Cells FEW /lpf (FEW) 05/28/17 19:00 Urine Bacteria 1+ /hpf (NONE SEEN) H 05/28/17 19:00 Urine Mucus FEW /lpf (FEW) 05/28/17 19:00 Laboratory Results - last 24 hr 05/28/17 05/28/17 05/29/17 19:00 22:19 06:35 WBC 9.8 D RBC 3.13 L Hgb 9.6 L Hct 28.8 L MCV 92.1 MCH 30.7 MCHC Differential 33.4 RDW 14.7 Plt Count 343 D MPV 7.1 Neutrophils % 66.1 Lymphocytes % 22.9 Monocytes % 8.1 Eosinophils % 2.3 Basophils % 0.6 Sodium Potassium Chloride Carbon Dioxide Anion Gap BUN Creatinine Est GFR ( Amer) Est GFR (Non-Af Amer) BUN/Creatinine Ratio Glucose POC Glucose 135 H Calcium Triglycerides Cholesterol LDL Cholesterol Direct HDL Cholesterol TSH Urine Source CATH Urine Color YELLOW Urine Clarity HAZY Urine pH 6.5 Ur Specific [place] 1.015 Urine Protein TRACE Urine Glucose (UA) NEGATIVE Urine Ketones NEGATIVE Urine Blood TRACE Urine Nitrate NEGATIVE Urine Bilirubin NEGATIVE Urine Urobilinogen 0.2 Ur Leukocyte Esterase SMALL H Urine RBC 2-5 Urine WBC 50-100 H Ur Epithelial Cells FEW Urine Bacteria 1+ H Urine Mucus FEW 05/29/17 05/29/17 06:35 06:35 WBC RBC Hgb Hct MCV MCH MCHC Differential RDW Plt Count MPV Neutrophils % Lymphocytes % Monocytes % Eosinophils % Basophils % Sodium 138 Potassium 4.0 Chloride 107 Carbon Dioxide 26.9 Anion Gap 8.1 BUN 36 H Creatinine 1.1 Est GFR ( Amer) > 60.0 Est GFR (Non-Af Amer) 52.3 BUN/Creatinine Ratio 32.7 Glucose 101 POC Glucose Calcium 9.1 Triglycerides 89 Cholesterol 107 LDL Cholesterol Direct 78 HDL Cholesterol 23 TSH 1.14 Urine Source Urine Color Urine Clarity Urine pH Ur Specific [place] Urine Protein Urine Glucose (UA) Urine Ketones Urine Blood Urine Nitrate Urine Bilirubin Urine Urobilinogen Ur Leukocyte Esterase Urine RBC Urine WBC Ur Epithelial Cells Urine Bacteria Urine Mucus - Assessment Assessment: epigastric pain gastritis ostomy hole with discharge s/p cholecystectomy - Plan Plan: as per order sheet
[2017-05-29] MEDS: INSULIN ASPART SLIDING SCALE 100 UNITS/ML UNIT SUBQ SCH ×3 (13:02→21:49)
[2017-05-29] MEDS: Morphine Sulfate 2 mg/mL 1mL Syr IVP PRN ×2 (15:54→21:57)
--- NOTE | 2017-05-29 18:51 | Infectious Disease Prog Note ---
Infectious Disease Subjective - Review of Systems Service Date: 05/29/17 Subjective: No new change, C/o abd pain in LUQ. Infectious Disease Objective - Results Result Diagrams: 05/29/17 06:35 05/30/17 06:16 Recent Labs: Laboratory Last Values WBC 9.8 Th/cmm (4.8-10.8) D 05/29/17 06:35 RBC 3.13 Mil/cmm (3.80-5.20) L 05/29/17 06:35 Hgb 9.6 gm/dL (11.7-16.1) L 05/29/17 06:35 Hct 28.8 % (35.0-45.0) L 05/29/17 06:35 MCV 92.1 fl (81-100) 05/29/17 06:35 MCH 30.7 pg (27.0-31.0) 05/29/17 06:35 MCHC Differential 33.4 pg (28.0-36.0) 05/29/17 06:35 RDW 14.7 % (11.5-20.0) 05/29/17 06:35 Plt Count 343 Th/cmm (150-400) D 05/29/17 06:35 MPV 7.1 fl 05/29/17 06:35 Neutrophils % 66.1 % (40.0-80.0) 05/29/17 06:35 Lymphocytes % 22.9 % (20.0-50.0) 05/29/17 06:35 Monocytes % 8.1 % (2.0-10.0) 05/29/17 06:35 Eosinophils % 2.3 % (0.0-5.0) 05/29/17 06:35 Basophils % 0.6 % (0.0-2.0) 05/29/17 06:35 Sodium 138 mEq/L (136-145) 05/29/17 06:35 Potassium 4.0 mEq/L (3.5-5.1) 05/29/17 06:35 Chloride 107 mEq/L (98-107) 05/29/17 06:35 Carbon Dioxide 26.9 mEq/L (21.0-31.0) 05/29/17 06:35 Anion Gap 8.1 (7.0-16.0) 05/29/17 06:35 BUN 36 mg/dL (7-25) H 05/29/17 06:35 Creatinine 1.1 mg/dL (0.6-1.2) 05/29/17 06:35 Est GFR ( Amer) > 60.0 ml/min (>90) 05/29/17 06:35 Est GFR (Non-Af Amer) 52.3 ml/min 05/29/17 06:35 BUN/Creatinine Ratio 32.7 05/29/17 06:35 Glucose 101 mg/dL (70-105) 05/29/17 06:35 POC Glucose 103 MG/DL (70 - 105) 05/29/17 12:57 Whole Bld Lactic Acid 1.25 mmol/L (0.60-1.99) 05/28/17 16:22 Calcium 9.1 mg/dL (8.6-10.3) 05/29/17 06:35 Total Bilirubin 0.3 mg/dL (0.3-1.0) 05/28/17 16:22 AST 40 U/L (13-39) H 05/28/17 16:22 ALT 49 U/L (7-52) 05/28/17 16:22 Alkaline Phosphatase 119 U/L (34-104) H 05/28/17 16:22 Troponin I 0.01 ng/mL (0.01-0.05) 05/28/17 16:22 Total Protein 7.0 gm/dL (6.0-8.3) 05/28/17 16:22 Albumin 3.2 gm/dL (3.7-5.3) L 05/28/17 16:22 Globulin 3.8 gm/dL 05/28/17 16:22 Albumin/Globulin Ratio 0.8 (1.0-1.8) L 05/28/17 16:22 Triglycerides 89 mg/dL (<150) 05/29/17 06:35 Cholesterol 107 mg/dL (<200) 05/29/17 06:35 LDL Cholesterol Direct 78 mg/dL (75-193) 05/29/17 06:35 HDL Cholesterol 23 mg/dL (23-92) 05/29/17 06:35 Amylase 60 U/L (29-103) 05/28/17 16:22 Lipase 33 U/L (11-82) 05/28/17 16:22 TSH 1.14 uIU/ml (0.34-5.60) 05/29/17 06:35 Urine Source CATH 05/28/17 19:00 Urine Color YELLOW 05/28/17 19:00 Urine Clarity HAZY (CLEAR) 05/28/17 19:00 Urine pH 6.5 05/28/17 19:00 Ur Specific [place] 1.015 (1.005-1.030) 05/28/17 19:00 Urine Protein TRACE mg/dL (NEGATIVE) 05/28/17 19:00 Urine Glucose (UA) NEGATIVE mg/dL (NEGATIVE) 05/28/17 19:00 Urine Ketones NEGATIVE mg/dL (NEGATIVE) 05/28/17 19:00 Urine Blood TRACE (NEGATIVE) 05/28/17 19:00 Urine Nitrate NEGATIVE (NEGATIVE) 05/28/17 19:00 Urine Bilirubin NEGATIVE (NEGATIVE) 05/28/17 19:00 Urine Urobilinogen 0.2 E.U./dL (0.2 - 1.0) 05/28/17 19:00 Ur Leukocyte Esterase SMALL (NEGATIVE) H 05/28/17 19:00 Urine RBC 2-5 /hpf (0-5) 05/28/17 19:00 Urine WBC 50-100 /hpf (0-5) H 05/28/17 19:00 Ur Epithelial Cells FEW /lpf (FEW) 05/28/17 19:00 Urine Bacteria 1+ /hpf (NONE SEEN) H 05/28/17 19:00 Urine Mucus FEW /lpf (FEW) 05/28/17 19:00 - Physical Exam Vitals and I&O: Vital Signs Temp 98.2 F 05/29/17 16:00 Pulse 80 05/29/17 16:00 Resp 20 05/29/17 16:00 BP 126/59 05/29/17 16:00 Pulse Ox 98 05/29/17 16:00 Intake & Output 05/28/17 05/29/17 05/29/17 18:59 06:59 18:59 Intake Total 120 Balance 120 Weight (lbs) 66.678 kg Intake: Oral 120 Other: # Voids 1 # Bowel Movements 0 Active Medications: Current Medications Clonidine HCl (Catapres) 0.2 mg PO DAILY ANISH Stop: 07/28/17 08:59 Last Admin: 05/29/17 10:00 Dose: 0.2 mg Sodium Chloride (Nacl 0.9%) 1,000 mls @ 100 mls/hr IV .Q10H [facility] Stop: 07/27/17 20:50 Last Admin: 05/29/17 00:56 Dose: 100 mls/hr Ceftriaxone Sodium 1 gm/ (Sodium Chloride) 50 mls @ 100 mls/hr IV Q24HR [facility] Stop: 07/27/17 22:59 Last Admin: 05/29/17 00:49 Dose: 100 mls/hr Amino Acids (Clinimix 5%-25%) 1,000 mls @ 40 mls/hr IV .Q24H [facility] Stop: 07/28/17 09:44 Last Admin: 05/29/17 13:58 Dose: 40 mls/hr Insulin Aspart (Novolog Insulin Sliding Scale) 0 units SUBQ ACHS ANISH PRN Reason: Protocol Stop: 07/27/17 22:14 Last Admin: 05/29/17 17:03 Dose: Not Given Miscellaneous (Tpn Per Pharmacy) 1 ea MC DAILY [facility] Stop: 07/28/17 08:59 Morphine Sulfate (Morphine) 1 mg IVP Q6HR PRN PRN Reason: Abdominal Pain Stop: 07/28/17 15:01 Last Admin: 05/29/17 15:54 Dose: 1 mg Ondansetron HCl (Zofran Odt) 4 mg PO Q6HR PRN PRN Reason: Nausea Stop: 07/27/17 20:50 Last Admin: 05/29/17 05:56 Dose: 4 mg Oxycodone/Acetaminophen (Percocet 5/325mg Oral Tab) 1 tab PO QID PRN PRN Reason: Pain (Moderate) Stop: 07/27/17 20:50 Last Admin: 05/29/17 13:27 Dose: 1 tab Pantoprazole Sodium (Protonix) 40 mg PO Q12HR [facility] Stop: 07/27/17 21:59 Last Admin: 05/29/17 10:00 Dose: 40 mg Zolpidem Tartrate (Ambien) 5 mg PO HS PRN PRN Reason: Insomnia Stop: 07/27/17 20:50 Last Admin: 05/28/17 23:38 Dose: 5 mg General: no acute distress, well developed, well nourished HEENT: atraumatic, normocephalic, PERRLA Neck: supple, no thyromegaly Cardiovascular: S1S2, regular Lungs: clear to auscultation bilaterally, clear to percussion Abdomen: soft, tender, other (gc fistula in epigastrium), no distended Extremities: no cyanosis, no clubbing, no edema Neurological: awake, alert, oriented, CN 2-12 intact, focal findings Skin: no rash - Procedures Procedures: Procedures Procedure Code Date BYPASS STOMACH TO JEJUNUM, OPEN APPROACH [id number] 01/25/17 DRAINAGE OF PERITONEAL CAVITY WITH DRAIN DEV, OPEN APPROACH [id number] 01/25/17 FUSION OF STOMACH AND BOWEL 41910 01/25/17 INSERT INFUSION DEV IN R INT JUGULAR VEIN, PERC [id number] 01/25/17 INSERTION OF INFUSION DEVICE INTO R ATRIUM, PERC APPROACH [id number] 01/25/17 INSPECTION OF GASTROINTESTINAL TRACT, OPEN APPROACH [id number] 01/25/17 REMOVAL OF GALLBLADDER 31071 01/25/17 REOPENING OF ABDOMEN 16958 01/25/17 REPAIR STOMACH, OPEN APPROACH [id number] 01/25/17 RESECTION OF GALLBLADDER, OPEN APPROACH [id number] 01/25/17 RESPIRATORY VENTILATION, LESS THAN 24 CONSECUTIVE HOURS [id number] 01/25/17 STOMACH SURGERY PROCEDURE 02686 01/25/17 VENT MGMT INPAT INIT DAY 04210 01/25/17 Infectious Disease Assmt/Plan - Problem List Patient Problems: All Active Problems H/O diabetes mellitus (Acute) Z86.39 H/O drug abuse (Acute) Z87.898 H/O: HTN (hypertension) (Acute) Z86.79 POSTCHOLECYSTECTOMY (Acute) UTI (urinary tract infection) (Acute) closeure og gastric perf (Acute) cplacement of new gj (Acute) h/o dementia (Acute) lysisi of adhesions (Acute) r/o sepsis (Acute) s/p surgery (Acute) septic shock (Acute) tachycardia (Acute) - Assessment Assessment: 1. Abdominal pain, unknown etiology. 2. Gastrocutaneous fistula. 3. UTI. 4. Leukocytosis. Plan: Continue Rocephin at this time. Asked Dr. Coyne to see the patient.
--- NOTE | 2017-05-30 01:38 | Admit Criteria Form ---
Admit Criteria Forms - Admit Criteria Diagnosis: GASTRITIS AND DUODENITIS Clinical Indications for Admission to Inpatient Care (Place 'X' for any and all applicable criteria): Admission is indicated for ANY ONE of the following (1)(2)(3): [X ]I. Inpatient admission required rather than observation care (Also use Gastritis and Duodenitis: Observation Care as appropriate) because of ANY ONE of the following: [ ]a) Caustic ingestion related injury that requires acute inpatient care (5) [ ]b) Vomiting that is severe or persistent (6) [ ]c) Volume depletion that is severe or persistent [X ]d) Severe pain requiring acute inpatient management [ ]e) Severe electrolyte abnormalities requiring inpatient care [ ]f) High fever or infection requiring inpatient admission indicated by ANY ONE of the following(7)(8): [ ]A. Appropriate outpatient or observation care antimicrobial treatment unavailable, not effective, not feasible [ ]B. Temp. > 104.9 F (oral) [ ]C. Temp. >103.1F (oral) or < 96.8 F (rectal) that does not respond to all emergency treatment measures [ ]D. Documented bacteremia [ ]g) IV fluid to replace significant ongoing losses (greater than 3 L/m2 per day)(12)(13) [ ]h) Parenteral nutrition regimen that must be implemented on inpatient basis [ ]i) Other condition, treatment or monitoring requiring inpatient admission [ ]II. Hemodynamic instability [ ]III. Suspected gastric outlet obstruction [ ]IV. Suspected perforation of viscus [ ]V. Peritoneal signs Extended stay beyond goal length of stay may be needed for (2)(3): [ ]a) Hemorrhagic gastritis or duodenitis (Also use Gastrointestinal Bleeding, Upper care as appropriate) (20) [ ]b) Severe caustic injury [ ]c) Gastroparesis(23) [ ]d) Surgical intervention (22) [ ]e) Older patient (patient older than 65 years of age) The original [email or web address] content created by [email or web address] has been revised. The portions of the content which have been revised are identified through the use of italic text or in bold, and [facility] has neither reviewed nor approved the modified material.All other unmodified content is copyright [facility]. Please see references footnoted in the original [facility] [employer] edition 2016 Admit Criteria Met?: Yes
[2017-05-30] MEDS: Morphine Sulfate 2 mg/mL 1mL Syr IVP PRN ×3 (05:31→20:57)
[2017-05-30] MEDS: INSULIN ASPART SLIDING SCALE 100 UNITS/ML UNIT SUBQ SCH ×4 (07:04→21:19)
[2017-05-30 07:35] LABS: ALB/GLOB RATIO 0.9 (1.0-1.8); ALKALINE PHOSPHATASE 505 U/L (34-104); BILIRUBIN,TOTAL 0.4 mg/dL (0.3-1.0); BUN - UREA NITROGEN 29 mg/dL (7-25); BUN/CREATININE RATIO 26.4; CALCIUM SERUM 9.1 mg/dL (8.6-10.3); CARBON DIOXIDE 28.7 mEq/L (21.0-31.0); CHLORIDE 104 mEq/L (98-107); CREATININE - SERUM 1.1 mg/dL (0.6-1.2); GLUCOSE 197 mg/dL (70-105); MAGNESIUM 1.6 mg/dL (1.9-2.7); PHOSPHOROUS 4.7 mg/dL (2.5-5.0); POTASSIUM SERUM 3.7 mEq/L (3.5-5.1); SGOT 529 U/L (13-39); SODIUM SERUM 138 mEq/L (136-145)
[2017-05-30 07:52] LABS: SGPT/ALT 667 U/L (7-52)
[2017-05-30] MEDS: Pantoprazole 40 mg EC Tab PO SCH ×2 (08:57→20:57)
[2017-05-30] MEDS ORDERED: Mag Sulfate 2gm/50mL Premix 2 GM/50 ML BAG IV ONE (10:00)
[2017-05-30] MEDS ORDERED: Diatrizoate Meglumine/Diatri 30 mL Sol PO ONE (10:09)
--- NOTE | 2017-05-30 10:42 | Diagnostic Imaging Report ---
Portable chest x-ray HISTORY: Shortness of breath, nasogastric tube placement The heart size is normal. No focal pulmonary processes. Atherosclerotic calcification seen in the aortic arch. A vascular catheter tip is in the region of the stricture vena cava. A nasogastric tube tip is in the upper mid abdomen over the region of the gastric fundus near the GE junction. This may be advanced approximately 5.0 cm. IMPRESSION: 1. Nasogastric tube projecting over the gastric fundal area. This may be advanced approximately 5.0 cm.
--- NOTE | 2017-05-30 11:55 | General Progress Note ---
Subjective - Review of Systems Events since last encounter: patient c/o abd pain denies cp,sob Objective - Results Result Diagrams: 05/29/17 06:35 05/30/17 06:16 Recent Labs: Laboratory Last Values WBC 9.8 Th/cmm (4.8-10.8) D 05/29/17 06:35 RBC 3.13 Mil/cmm (3.80-5.20) L 05/29/17 06:35 Hgb 9.6 gm/dL (11.7-16.1) L 05/29/17 06:35 Hct 28.8 % (35.0-45.0) L 05/29/17 06:35 MCV 92.1 fl (81-100) 05/29/17 06:35 MCH 30.7 pg (27.0-31.0) 05/29/17 06:35 MCHC Differential 33.4 pg (28.0-36.0) 05/29/17 06:35 RDW 14.7 % (11.5-20.0) 05/29/17 06:35 Plt Count 343 Th/cmm (150-400) D 05/29/17 06:35 MPV 7.1 fl 05/29/17 06:35 Neutrophils % 66.1 % (40.0-80.0) 05/29/17 06:35 Lymphocytes % 22.9 % (20.0-50.0) 05/29/17 06:35 Monocytes % 8.1 % (2.0-10.0) 05/29/17 06:35 Eosinophils % 2.3 % (0.0-5.0) 05/29/17 06:35 Basophils % 0.6 % (0.0-2.0) 05/29/17 06:35 Sodium 138 mEq/L (136-145) 05/30/17 06:16 Potassium 3.7 mEq/L (3.5-5.1) 05/30/17 06:16 Chloride 104 mEq/L (98-107) 05/30/17 06:16 Carbon Dioxide 28.7 mEq/L (21.0-31.0) 05/30/17 06:16 Anion Gap 9.0 (7.0-16.0) 05/30/17 06:16 BUN 29 mg/dL (7-25) H 05/30/17 06:16 Creatinine 1.1 mg/dL (0.6-1.2) 05/30/17 06:16 Est GFR ( Amer) > 60.0 ml/min (>90) 05/30/17 06:16 Est GFR (Non-Af Amer) 52.3 ml/min 05/30/17 06:16 BUN/Creatinine Ratio 26.4 05/30/17 06:16 Glucose 197 mg/dL (70-105) H 05/30/17 06:16 POC Glucose 190 MG/DL (70 - 105) H 05/30/17 06:35 Hemoglobin A1c % 6.5 % (4.0-6.0) H 05/30/17 06:16 Whole Bld Lactic Acid 1.25 mmol/L (0.60-1.99) 05/28/17 16:22 Calcium 9.1 mg/dL (8.6-10.3) 05/30/17 06:16 Phosphorus 4.7 mg/dL (2.5-5.0) 05/30/17 06:16 Magnesium 1.6 mg/dL (1.9-2.7) L 05/30/17 06:16 Total Bilirubin 0.4 mg/dL (0.3-1.0) 05/30/17 06:16 AST 529 U/L (13-39) H 05/30/17 06:16 ALT 667 U/L (7-52) H 05/30/17 06:16 Alkaline Phosphatase 505 U/L (34-104) H 05/30/17 06:16 Troponin I 0.01 ng/mL (0.01-0.05) 05/28/17 16:22 Total Protein 6.4 gm/dL (6.0-8.3) 05/30/17 06:16 Albumin 3.0 gm/dL (3.7-5.3) L 05/30/17 06:16 Globulin 3.4 gm/dL 05/30/17 06:16 Albumin/Globulin Ratio 0.9 (1.0-1.8) L 05/30/17 06:16 Triglycerides 89 mg/dL (<150) 05/29/17 06:35 Cholesterol 107 mg/dL (<200) 05/29/17 06:35 LDL Cholesterol Direct 78 mg/dL (75-193) 05/29/17 06:35 HDL Cholesterol 23 mg/dL (23-92) 05/29/17 06:35 Amylase 60 U/L (29-103) 05/28/17 16:22 Lipase 33 U/L (11-82) 05/28/17 16:22 TSH 1.14 uIU/ml (0.34-5.60) 05/29/17 06:35 Urine Source CATH 05/28/17 19:00 Urine Color YELLOW 05/28/17 19:00 Urine Clarity HAZY (CLEAR) 05/28/17 19:00 Urine pH 6.5 05/28/17 19:00 Ur Specific [place] 1.015 (1.005-1.030) 05/28/17 19:00 Urine Protein TRACE mg/dL (NEGATIVE) 05/28/17 19:00 Urine Glucose (UA) NEGATIVE mg/dL (NEGATIVE) 05/28/17 19:00 Urine Ketones NEGATIVE mg/dL (NEGATIVE) 05/28/17 19:00 Urine Blood TRACE (NEGATIVE) 05/28/17 19:00 Urine Nitrate NEGATIVE (NEGATIVE) 05/28/17 19:00 Urine Bilirubin NEGATIVE (NEGATIVE) 05/28/17 19:00 Urine Urobilinogen 0.2 E.U./dL (0.2 - 1.0) 05/28/17 19:00 Ur Leukocyte Esterase SMALL (NEGATIVE) H 05/28/17 19:00 Urine RBC 2-5 /hpf (0-5) 05/28/17 19:00 Urine WBC 50-100 /hpf (0-5) H 05/28/17 19:00 Ur Epithelial Cells FEW /lpf (FEW) 05/28/17 19:00 Urine Bacteria 1+ /hpf (NONE SEEN) H 05/28/17 19:00 Urine Mucus FEW /lpf (FEW) 05/28/17 19:00 - Physical Exam Vitals and I&O: Vital Signs Temp 88 F 05/30/17 08:09 Pulse 88 05/30/17 08:56 Resp 20 05/30/17 08:09 BP 127/65 05/30/17 08:09 Pulse Ox 98 05/30/17 04:00 Intake & Output 05/29/17 05/30/17 05/30/17 18:59 06:59 18:59 Intake Total 400 Balance 400 Weight (lbs) 66.678 kg 66.678 kg Intake: TPN/PPN 400 Active Medications: Current Medications Clonidine HCl (Catapres) 0.2 mg PO DAILY [facility]ISH Stop: 07/28/17 08:59 Last Admin: 05/30/17 08:56 Dose: Not Given Sodium Chloride (Nacl 0.9%) 1,000 mls @ 100 mls/hr IV .Q10H [facility] Stop: 05/30/17 14:59 Last Admin: 05/29/17 00:56 Dose: 100 mls/hr Ceftriaxone Sodium 1 gm/ (Sodium Chloride) 50 mls @ 100 mls/hr IV Q24HR [facility] Stop: 07/27/17 22:59 Last Admin: 05/29/17 22:01 Dose: 100 mls/hr Amino Acids (Clinimix 5%-25%) 1,000 mls @ 40 mls/hr IV .Q24H [facility] Stop: 07/28/17 09:44 Last Admin: 05/29/17 13:58 Dose: 40 mls/hr Magnesium Sulfate (Magnesium Sulfate Premix) 2 gm in 50 mls @ 25 mls/hr IV ONCE ONE Stop: 05/30/17 11:59 Sodium Chloride (Nacl 0.9%) 1,000 mls @ 50 mls/hr IV .Q20H [facility] Stop: 07/29/17 14:59 Multivitamins/Minerals 10 ml/Dextrose/ Amino Acids/Electrolytes/ Fat Emulsion Intravenous 1,200 mls @ 50 mls/hr IV .Q24H [facility] Stop: 07/29/17 14:59 Insulin Aspart (Novolog Insulin Sliding Scale) 0 units SUBQ ACHS ANISH PRN Reason: Protocol Stop: 07/27/17 22:14 Last Admin: 05/30/17 07:04 Dose: 2 units Miscellaneous (Tpn Per Pharmacy) 1 ea MC DAILY [facility] Stop: 07/28/17 08:59 Morphine Sulfate (Morphine) 1 mg IVP Q6HR PRN PRN Reason: Abdominal Pain Stop: 07/28/17 15:01 Last Admin: 05/30/17 11:37 Dose: 1 mg Ondansetron HCl (Zofran Odt) 4 mg PO Q6HR PRN PRN Reason: Nausea Stop: 07/27/17 20:50 Last Admin: 05/29/17 05:56 Dose: 4 mg Oxycodone/Acetaminophen (Percocet 5/325mg Oral Tab) 1 tab PO QID PRN PRN Reason: Pain (Moderate) Stop: 07/27/17 20:50 Last Admin: 05/29/17 13:27 Dose: 1 tab Pantoprazole Sodium (Protonix) 40 mg PO Q12HR [facility]ISH Stop: 07/27/17 21:59 Last Admin: 05/30/17 08:57 Dose: Not Given Zolpidem Tartrate (Ambien) 5 mg PO HS PRN PRN Reason: Insomnia Stop: 07/27/17 20:50 Last Admin: 05/28/17 23:38 Dose: 5 mg General: No acute distress HEENT: Atraumatic Cardiovascular: Regular rate, Normal S1, Normal S2 Abdomen: Bowel sounds - Procedures Procedures: Procedures Procedure Code Date BYPASS STOMACH TO JEJUNUM, OPEN APPROACH [id number] 01/25/17 DRAINAGE OF PERITONEAL CAVITY WITH DRAIN DEV, OPEN APPROACH [id number] 01/25/17 FUSION OF STOMACH AND BOWEL [id number] 01/25/17 INSERT INFUSION DEV IN R INT JUGULAR VEIN, PERC [id number] 01/25/17 INSERTION OF INFUSION DEVICE INTO R ATRIUM, PERC APPROACH [id number] 01/25/17 INSPECTION OF GASTROINTESTINAL TRACT, OPEN APPROACH [id number] 01/25/17 REMOVAL OF GALLBLADDER 39617 01/25/17 REOPENING OF ABDOMEN [id number] 01/25/17 REPAIR STOMACH, OPEN APPROACH [id number] 01/25/17 RESECTION OF GALLBLADDER, OPEN APPROACH [id number] 01/25/17 RESPIRATORY VENTILATION, LESS THAN 24 CONSECUTIVE HOURS [id number] 01/25/17 STOMACH SURGERY PROCEDURE [id number] 01/25/17 VENT MGMT INPAT INIT DAY [id number] 01/25/17 Assessment/Plan - Problem List Patient Problems: All Active Problems H/O diabetes mellitus (Acute) Z86.39 H/O drug abuse (Acute) Z87.898 H/O: HTN (hypertension) (Acute) Z86.79 POSTCHOLECYSTECTOMY (Acute) UTI (urinary tract infection) (Acute) closeure og gastric perf (Acute) cplacement of new gj (Acute) h/o dementia (Acute) lysisi of adhesions (Acute) r/o sepsis (Acute) s/p surgery (Acute) septic shock (Acute) tachycardia (Acute) - Assessment Assessment: epigastric pain gastritis ostomy hole with discharge s/p cholecystectomy - Plan Plan: as per order sheet
--- NOTE | 2017-05-30 13:45 | Diagnostic Imaging Report ---
Upper GI examination History: Enterocutaneous fistula Comparison: CT abdomen and pelvis on 05/28/2017 Technique/procedure: [employer] Consultant view demonstrates NG tube within the stomach. Diffuse postsurgical changes of the abdomen are noted. Exam is limited as patient could not tolerated the entire procedure. Gastrografin was inserted the patient's G-tube. There is gastroesophageal reflux. There may be a hiatal hernia with small diverticulum seen at the GE junction. There is ill-defined linear faint area of contrast opacification along the distal remnant stomach extending to the left mid abdomen possibly representing a small leak. Additional oral contrast is seen more distally within the right lower quadrant possibly within proximal small bowel loops. Note, patient vomited could not tolerate additional contrast and vomited the remaining of the contrast. There appears to be external contrast material overlying the right lower quadrant. IMPRESSION: Findings possibly representing a leak along the left mid abdomen possibly in the region of the patient's postsurgical stomach distally. There is transit of contrast distal to this region which may be within proximal small bowel loops. Note patient vomited additional contrast with likely pooling of contrast seen along the right lower quadrant external to the patient. Gastroesophageal reflux was also noted as patient was not able to tolerate the exam. Recommend further assessment of the above findings with CT of the abdomen and pelvis. Dr. Coyne was informed of the findings on 05/30/2017 at 1:40 PM.
--- NOTE | 2017-05-30 14:17 | Infectious Disease Prog Note ---
Infectious Disease Subjective - Review of Systems Service Date: 05/30/17 Subjective: No new change, C/o abd pain in LUQ. Infectious Disease Objective - Results Result Diagrams: 05/29/17 06:35 05/30/17 06:16 Recent Labs: Laboratory Last Values WBC 9.8 Th/cmm (4.8-10.8) D 05/29/17 06:35 RBC 3.13 Mil/cmm (3.80-5.20) L 05/29/17 06:35 Hgb 9.6 gm/dL (11.7-16.1) L 05/29/17 06:35 Hct 28.8 % (35.0-45.0) L 05/29/17 06:35 MCV 92.1 fl (81-100) 05/29/17 06:35 MCH 30.7 pg (27.0-31.0) 05/29/17 06:35 MCHC Differential 33.4 pg (28.0-36.0) 05/29/17 06:35 RDW 14.7 % (11.5-20.0) 05/29/17 06:35 Plt Count 343 Th/cmm (150-400) D 05/29/17 06:35 MPV 7.1 fl 05/29/17 06:35 Neutrophils % 66.1 % (40.0-80.0) 05/29/17 06:35 Lymphocytes % 22.9 % (20.0-50.0) 05/29/17 06:35 Monocytes % 8.1 % (2.0-10.0) 05/29/17 06:35 Eosinophils % 2.3 % (0.0-5.0) 05/29/17 06:35 Basophils % 0.6 % (0.0-2.0) 05/29/17 06:35 Sodium 138 mEq/L (136-145) 05/30/17 06:16 Potassium 3.7 mEq/L (3.5-5.1) 05/30/17 06:16 Chloride 104 mEq/L (98-107) 05/30/17 06:16 Carbon Dioxide 28.7 mEq/L (21.0-31.0) 05/30/17 06:16 Anion Gap 9.0 (7.0-16.0) 05/30/17 06:16 BUN 29 mg/dL (7-25) H 05/30/17 06:16 Creatinine 1.1 mg/dL (0.6-1.2) 05/30/17 06:16 Est GFR ( Amer) > 60.0 ml/min (>90) 05/30/17 06:16 Est GFR (Non-Af Amer) 52.3 ml/min 05/30/17 06:16 BUN/Creatinine Ratio 26.4 05/30/17 06:16 Glucose 197 mg/dL (70-105) H 05/30/17 06:16 POC Glucose 278 MG/DL (70 - 105) H 05/30/17 11:55 Hemoglobin A1c % 6.5 % (4.0-6.0) H 05/30/17 06:16 Whole Bld Lactic Acid 1.25 mmol/L (0.60-1.99) 05/28/17 16:22 Calcium 9.1 mg/dL (8.6-10.3) 05/30/17 06:16 Phosphorus 4.7 mg/dL (2.5-5.0) 05/30/17 06:16 Magnesium 1.6 mg/dL (1.9-2.7) L 05/30/17 06:16 Total Bilirubin 0.4 mg/dL (0.3-1.0) 05/30/17 06:16 AST 529 U/L (13-39) H 05/30/17 06:16 ALT 667 U/L (7-52) H 05/30/17 06:16 Alkaline Phosphatase 505 U/L (34-104) H 05/30/17 06:16 Troponin I 0.01 ng/mL (0.01-0.05) 05/28/17 16:22 Total Protein 6.4 gm/dL (6.0-8.3) 05/30/17 06:16 Albumin 3.0 gm/dL (3.7-5.3) L 05/30/17 06:16 Globulin 3.4 gm/dL 05/30/17 06:16 Albumin/Globulin Ratio 0.9 (1.0-1.8) L 05/30/17 06:16 Prealbumin 19 mg/dL (10-36) 05/29/17 06:35 Triglycerides 89 mg/dL (<150) 05/29/17 06:35 Cholesterol 107 mg/dL (<200) 05/29/17 06:35 LDL Cholesterol Direct 78 mg/dL (75-193) 05/29/17 06:35 HDL Cholesterol 23 mg/dL (23-92) 05/29/17 06:35 Amylase 60 U/L (29-103) 05/28/17 16:22 Lipase 33 U/L (11-82) 05/28/17 16:22 TSH 1.14 uIU/ml (0.34-5.60) 05/29/17 06:35 Urine Source CATH 05/28/17 19:00 Urine Color YELLOW 05/28/17 19:00 Urine Clarity HAZY (CLEAR) 05/28/17 19:00 Urine pH 6.5 05/28/17 19:00 Ur Specific [place] 1.015 (1.005-1.030) 05/28/17 19:00 Urine Protein TRACE mg/dL (NEGATIVE) 05/28/17 19:00 Urine Glucose (UA) NEGATIVE mg/dL (NEGATIVE) 05/28/17 19:00 Urine Ketones NEGATIVE mg/dL (NEGATIVE) 05/28/17 19:00 Urine Blood TRACE (NEGATIVE) 05/28/17 19:00 Urine Nitrate NEGATIVE (NEGATIVE) 05/28/17 19:00 Urine Bilirubin NEGATIVE (NEGATIVE) 05/28/17 19:00 Urine Urobilinogen 0.2 E.U./dL (0.2 - 1.0) 05/28/17 19:00 Ur Leukocyte Esterase SMALL (NEGATIVE) H 05/28/17 19:00 Urine RBC 2-5 /hpf (0-5) 05/28/17 19:00 Urine WBC 50-100 /hpf (0-5) H 05/28/17 19:00 Ur Epithelial Cells FEW /lpf (FEW) 05/28/17 19:00 Urine Bacteria 1+ /hpf (NONE SEEN) H 05/28/17 19:00 Urine Mucus FEW /lpf (FEW) 05/28/17 19:00 - Physical Exam Vitals and I&O: Vital Signs Temp 88 F 05/30/17 08:09 Pulse 88 05/30/17 08:56 Resp 20 05/30/17 08:09 BP 127/65 05/30/17 08:09 Pulse Ox 98 05/30/17 04:00 Intake & Output 05/29/17 05/30/17 05/30/17 18:59 06:59 18:59 Intake Total 400 Balance 400 Weight (lbs) 66.678 kg 66.678 kg Intake: TPN/PPN 400 Active Medications: Current Medications Clonidine HCl (Catapres) 0.2 mg PO DAILY [facility] Stop: 07/28/17 08:59 Last Admin: 05/30/17 08:56 Dose: Not Given Sodium Chloride (Nacl 0.9%) 1,000 mls @ 100 mls/hr IV .Q10H [facility] Stop: 05/30/17 14:59 Last Admin: 05/29/17 00:56 Dose: 100 mls/hr Ceftriaxone Sodium 1 gm/ (Sodium Chloride) 50 mls @ 100 mls/hr IV Q24HR [facility] Stop: 07/27/17 22:59 Last Admin: 05/29/17 22:01 Dose: 100 mls/hr Amino Acids (Clinimix 5%-25%) 1,000 mls @ 40 mls/hr IV .Q24H [facility] Stop: 05/30/17 14:59 Last Admin: 05/29/17 13:58 Dose: 40 mls/hr Sodium Chloride (Nacl 0.9%) 1,000 mls @ 50 mls/hr IV .Q20H [facility] Stop: 07/29/17 14:59 Multivitamins/Minerals 10 ml/Dextrose/ Amino Acids/Electrolytes/ Fat Emulsion Intravenous 1,200 mls @ 50 mls/hr IV .Q24H [facility] Stop: 07/29/17 14:59 Insulin Aspart (Novolog Insulin Sliding Scale) 0 units SUBQ ACHS [facility] PRN Reason: Protocol Stop: 07/27/17 22:14 Last Admin: 05/30/17 12:13 Dose: 4 units Miscellaneous (Tpn Per Pharmacy) 1 ea MC DAILY [facility] Stop: 07/28/17 08:59 Morphine Sulfate (Morphine) 1 mg IVP Q6HR PRN PRN Reason: Abdominal Pain Stop: 07/28/17 15:01 Last Admin: 05/30/17 11:37 Dose: 1 mg Ondansetron HCl (Zofran Odt) 4 mg PO Q6HR PRN PRN Reason: Nausea Stop: 07/27/17 20:50 Last Admin: 05/29/17 05:56 Dose: 4 mg Oxycodone/Acetaminophen (Percocet 5/325mg Oral Tab) 1 tab PO QID PRN PRN Reason: Pain (Moderate) Stop: 07/27/17 20:50 Last Admin: 05/29/17 13:27 Dose: 1 tab Pantoprazole Sodium (Protonix) 40 mg PO Q12HR [facility] Stop: 07/27/17 21:59 Last Admin: 05/30/17 08:57 Dose: Not Given Zolpidem Tartrate (Ambien) 5 mg PO HS PRN PRN Reason: Insomnia Stop: 07/27/17 20:50 Last Admin: 05/28/17 23:38 Dose: 5 mg General: no acute distress, well developed, well nourished HEENT: atraumatic, normocephalic, PERRLA, EOMI, moist mucous membrane Neck: supple, no thyromegaly Cardiovascular: S1S2, regular Lungs: no clear to auscultation bilaterally, no clear to percussion Abdomen: soft, tender, other (gastrocutaneous fistula, with no surrounding erythema.), no distended (.), no hepatomegaly, no splenomegaly Extremities: no cyanosis, no clubbing, no edema Neurological: awake, oriented Skin: intact - Procedures Procedures: Procedures Procedure Code Date BYPASS STOMACH TO JEJUNUM, OPEN APPROACH [id number] 01/25/17 DRAINAGE OF PERITONEAL CAVITY WITH DRAIN DEV, OPEN APPROACH [id number] 01/25/17 FUSION OF STOMACH AND BOWEL 12708 01/25/17 INSERT INFUSION DEV IN R INT JUGULAR VEIN, PERC [id number] 01/25/17 INSERTION OF INFUSION DEVICE INTO R ATRIUM, PERC APPROACH [id number] 01/25/17 INSPECTION OF GASTROINTESTINAL TRACT, OPEN APPROACH [id number] 01/25/17 REMOVAL OF GALLBLADDER 44918 01/25/17 REOPENING OF ABDOMEN 86197 01/25/17 REPAIR STOMACH, OPEN APPROACH [id number] 01/25/17 RESECTION OF GALLBLADDER, OPEN APPROACH [id number] 01/25/17 RESPIRATORY VENTILATION, LESS THAN 24 CONSECUTIVE HOURS [id number] 01/25/17 STOMACH SURGERY PROCEDURE 55214 01/25/17 VENT MGMT INPAT INIT DAY 51645 01/25/17 Infectious Disease Assmt/Plan - Problem List Patient Problems: All Active Problems H/O diabetes mellitus (Acute) Z86.39 H/O drug abuse (Acute) Z87.898 H/O: HTN (hypertension) (Acute) Z86.79 POSTCHOLECYSTECTOMY (Acute) UTI (urinary tract infection) (Acute) closeure og gastric perf (Acute) cplacement of new gj (Acute) h/o dementia (Acute) lysisi of adhesions (Acute) r/o sepsis (Acute) s/p surgery (Acute) septic shock (Acute) tachycardia (Acute) - Assessment Assessment: 1. Abdominal pain, unknown etiology. 2. Gastrocutaneous fistula. 3. UTI. 4. Leukocytosis. Improved. - Plan Plan: Continue Rocephin.
--- NOTE | 2017-05-30 15:26 | General Progress Note ---
Subjective - Review of Systems Service Date: 05/30/17 Events since last encounter: UGI shows gastro-cutaneous fistula. Plan: closure of fistula if patient agrees has no family Objective - Results Result Diagrams: 05/29/17 06:35 05/30/17 06:16 Recent Labs: Laboratory Last Values WBC 9.8 Th/cmm (4.8-10.8) D 05/29/17 06:35 RBC 3.13 Mil/cmm (3.80-5.20) L 05/29/17 06:35 Hgb 9.6 gm/dL (11.7-16.1) L 05/29/17 06:35 Hct 28.8 % (35.0-45.0) L 05/29/17 06:35 MCV 92.1 fl (81-100) 05/29/17 06:35 MCH 30.7 pg (27.0-31.0) 05/29/17 06:35 MCHC Differential 33.4 pg (28.0-36.0) 05/29/17 06:35 RDW 14.7 % (11.5-20.0) 05/29/17 06:35 Plt Count 343 Th/cmm (150-400) D 05/29/17 06:35 MPV 7.1 fl 05/29/17 06:35 Neutrophils % 66.1 % (40.0-80.0) 05/29/17 06:35 Lymphocytes % 22.9 % (20.0-50.0) 05/29/17 06:35 Monocytes % 8.1 % (2.0-10.0) 05/29/17 06:35 Eosinophils % 2.3 % (0.0-5.0) 05/29/17 06:35 Basophils % 0.6 % (0.0-2.0) 05/29/17 06:35 Sodium 138 mEq/L (136-145) 05/30/17 06:16 Potassium 3.7 mEq/L (3.5-5.1) 05/30/17 06:16 Chloride 104 mEq/L (98-107) 05/30/17 06:16 Carbon Dioxide 28.7 mEq/L (21.0-31.0) 05/30/17 06:16 Anion Gap 9.0 (7.0-16.0) 05/30/17 06:16 BUN 29 mg/dL (7-25) H 05/30/17 06:16 Creatinine 1.1 mg/dL (0.6-1.2) 05/30/17 06:16 Est GFR ( Amer) > 60.0 ml/min (>90) 05/30/17 06:16 Est GFR (Non-Af Amer) 52.3 ml/min 05/30/17 06:16 BUN/Creatinine Ratio 26.4 05/30/17 06:16 Glucose 197 mg/dL (70-105) H 05/30/17 06:16 POC Glucose 278 MG/DL (70 - 105) H 05/30/17 11:55 Hemoglobin A1c % 6.5 % (4.0-6.0) H 05/30/17 06:16 Whole Bld Lactic Acid 1.25 mmol/L (0.60-1.99) 05/28/17 16:22 Calcium 9.1 mg/dL (8.6-10.3) 05/30/17 06:16 Phosphorus 4.7 mg/dL (2.5-5.0) 05/30/17 06:16 Magnesium 1.6 mg/dL (1.9-2.7) L 05/30/17 06:16 Total Bilirubin 0.4 mg/dL (0.3-1.0) 05/30/17 06:16 AST 529 U/L (13-39) H 05/30/17 06:16 ALT 667 U/L (7-52) H 05/30/17 06:16 Alkaline Phosphatase 505 U/L (34-104) H 05/30/17 06:16 Troponin I 0.01 ng/mL (0.01-0.05) 05/28/17 16:22 Total Protein 6.4 gm/dL (6.0-8.3) 05/30/17 06:16 Albumin 3.0 gm/dL (3.7-5.3) L 05/30/17 06:16 Globulin 3.4 gm/dL 05/30/17 06:16 Albumin/Globulin Ratio 0.9 (1.0-1.8) L 05/30/17 06:16 Prealbumin 19 mg/dL (10-36) 05/29/17 06:35 Triglycerides 89 mg/dL (<150) 05/29/17 06:35 Cholesterol 107 mg/dL (<200) 05/29/17 06:35 LDL Cholesterol Direct 78 mg/dL (75-193) 05/29/17 06:35 HDL Cholesterol 23 mg/dL (23-92) 05/29/17 06:35 Amylase 60 U/L (29-103) 05/28/17 16:22 Lipase 33 U/L (11-82) 05/28/17 16:22 TSH 1.14 uIU/ml (0.34-5.60) 05/29/17 06:35 Urine Source CATH 05/28/17 19:00 Urine Color YELLOW 05/28/17 19:00 Urine Clarity HAZY (CLEAR) 05/28/17 19:00 Urine pH 6.5 05/28/17 19:00 Ur Specific [place] 1.015 (1.005-1.030) 05/28/17 19:00 Urine Protein TRACE mg/dL (NEGATIVE) 05/28/17 19:00 Urine Glucose (UA) NEGATIVE mg/dL (NEGATIVE) 05/28/17 19:00 Urine Ketones NEGATIVE mg/dL (NEGATIVE) 05/28/17 19:00 Urine Blood TRACE (NEGATIVE) 05/28/17 19:00 Urine Nitrate NEGATIVE (NEGATIVE) 05/28/17 19:00 Urine Bilirubin NEGATIVE (NEGATIVE) 05/28/17 19:00 Urine Urobilinogen 0.2 E.U./dL (0.2 - 1.0) 05/28/17 19:00 Ur Leukocyte Esterase SMALL (NEGATIVE) H 05/28/17 19:00 Urine RBC 2-5 /hpf (0-5) 05/28/17 19:00 Urine WBC 50-100 /hpf (0-5) H 05/28/17 19:00 Ur Epithelial Cells FEW /lpf (FEW) 05/28/17 19:00 Urine Bacteria 1+ /hpf (NONE SEEN) H 05/28/17 19:00 Urine Mucus FEW /lpf (FEW) 05/28/17 19:00 - Physical Exam Vitals and I&O: Vital Signs Temp 88 F 05/30/17 08:09 Pulse 88 05/30/17 08:56 Resp 20 05/30/17 08:09 BP 127/65 05/30/17 08:09 Pulse Ox 98 05/30/17 04:00 Intake & Output 05/29/17 05/30/17 05/30/17 18:59 06:59 18:59 Intake Total 400 Balance 400 Weight (lbs) 66.678 kg 66.678 kg Intake: TPN/PPN 400 Active Medications: Current Medications Clonidine HCl (Catapres) 0.[address] [facility] Stop: 07/28/17 08:59 Last Admin: 05/30/17 08:56 Dose: Not Given Ceftriaxone Sodium 1 gm/ (Sodium Chloride) 50 mls @ 100 mls/hr IV Q24HR [facility] Stop: 07/27/17 22:59 Last Admin: 05/29/17 22:01 Dose: 100 mls/hr Sodium Chloride (Nacl 0.9%) 1,000 mls @ 50 mls/hr IV .Q20H [facility] Stop: 07/29/17 14:59 Multivitamins/Minerals 10 ml/Dextrose/ Amino Acids/Electrolytes/ Fat Emulsion Intravenous 1,200 mls @ 50 mls/hr IV .Q24H [facility] Stop: 07/29/17 14:59 Insulin Aspart (Novolog Insulin Sliding Scale) 0 units SUBQ ACHS [facility] PRN Reason: Protocol Stop: 07/27/17 22:14 Last Admin: 05/30/17 12:13 Dose: 4 units Miscellaneous (Tpn Per Pharmacy) [address] [facility] Stop: 07/28/17 08:59 Morphine Sulfate (Morphine) 1 mg IVP Q6HR PRN PRN Reason: Abdominal Pain Stop: 07/28/17 15:01 Last Admin: 05/30/17 11:37 Dose: 1 mg Ondansetron HCl (Zofran Odt) 4 mg PO Q6HR PRN PRN Reason: Nausea Stop: 07/27/17 20:50 Last Admin: 05/29/17 05:56 Dose: 4 mg Oxycodone/Acetaminophen (Percocet 5/325mg Oral Tab) 1 tab PO QID PRN PRN Reason: Pain (Moderate) Stop: 07/27/17 20:50 Last Admin: 05/29/17 13:27 Dose: 1 tab Pantoprazole Sodium (Protonix) [address] [facility] Stop: 07/27/17 21:59 Last Admin: 05/30/17 08:57 Dose: Not Given Zolpidem Tartrate (Ambien) 5 mg PO HS PRN PRN Reason: Insomnia Stop: 07/27/17 20:50 Last Admin: 05/28/17 23:38 Dose: 5 mg General: No acute distress HEENT: Atraumatic Cardiovascular: Regular rate, Normal S1, Normal S2 Abdomen: Bowel sounds - Procedures Procedures: Procedures Procedure Code Date BYPASS STOMACH TO JEJUNUM, OPEN APPROACH [id number] 01/25/17 DRAINAGE OF PERITONEAL CAVITY WITH DRAIN DEV, OPEN APPROACH [id number] 01/25/17 FUSION OF STOMACH AND BOWEL 51372 01/25/17 INSERT INFUSION DEV IN R INT JUGULAR VEIN, PERC [id number] 01/25/17 INSERTION OF INFUSION DEVICE INTO R ATRIUM, PERC APPROACH [id number] 01/25/17 INSPECTION OF GASTROINTESTINAL TRACT, OPEN APPROACH [id number] 01/25/17 REMOVAL OF GALLBLADDER 46585 01/25/17 REOPENING OF ABDOMEN 01651 01/25/17 REPAIR STOMACH, OPEN APPROACH [id number] 01/25/17 RESECTION OF GALLBLADDER, OPEN APPROACH [id number] 01/25/17 RESPIRATORY VENTILATION, LESS THAN 24 CONSECUTIVE HOURS [id number] 01/25/17 STOMACH SURGERY PROCEDURE 54742 01/25/17 VENT MGMT INPAT INIT DAY 12150 01/25/17 Assessment/Plan - Problem List Patient Problems: All Active Problems H/O diabetes mellitus (Acute) Z86.39 H/O drug abuse (Acute) Z87.898 H/O: HTN (hypertension) (Acute) Z86.79 POSTCHOLECYSTECTOMY (Acute) UTI (urinary tract infection) (Acute) closeure og gastric perf (Acute) cplacement of new gj (Acute) h/o dementia (Acute) lysisi of adhesions (Acute) r/o sepsis (Acute) s/p surgery (Acute) septic shock (Acute) tachycardia (Acute)
[2017-05-30] MEDS: TPN 10%-70% CUSTOM IV SCH (17:14)
[2017-05-30] MEDS: Sodium Chloride 0.9% 1,000 ML IV SCH (18:00)
[2017-05-30] MEDS: APAP/Oxycodone 5/325mg Oral Tab PO PRN (22:52)
[2017-05-31 05:59] LABS: % BASOPHILS 0.6 % (0.0-2.0); % EOSINOPHILS 2.1 % (0.0-5.0); % MONOCYTES 10.8 % (2.0-10.0); % NEUTROPHILS 60.5 % (40.0-80.0); HEMATOCRIT 27.1 % (35.0-45.0); HEMOGLOBIN 9.3 gm/dL (11.7-16.1); MEAN CORPUSCULAR HEMOGLOBIN 30.8 pg (27.0-31.0); MEAN CORPUSCULAR HGB CONC 34.2 pg (28.0-36.0); MEAN PLATELET VOLUME 7.7 fl; NEUTROPHILE ABSOLUTE 4.3 Th/cmm (1.8-8.0); PLATELET COUNT 310 Th/cmm (150-400); RED BLOOD COUNT 3.01 Mil/cmm (3.80-5.20); RED CELL DISTRIBUTION WIDTH 14.5 % (11.5-20.0)
[2017-05-31 06:07] LABS: INR 1.06 (0.5-1.4)
[2017-05-31 06:14] LABS: ALB/GLOB RATIO 0.9 (1.0-1.8); ALKALINE PHOSPHATASE 456 U/L (34-104); ANION GAP 7.3 (7.0-16.0); BILIRUBIN,TOTAL 0.3 mg/dL (0.3-1.0); BUN - UREA NITROGEN 27 mg/dL (7-25); BUN/CREATININE RATIO 24.5; CALCIUM SERUM 8.9 mg/dL (8.6-10.3); CARBON DIOXIDE 26.1 mEq/L (21.0-31.0); CHLORIDE 104 mEq/L (98-107); CREATININE - SERUM 1.1 mg/dL (0.6-1.2); GLUCOSE 281 mg/dL (70-105); MAGNESIUM 1.9 mg/dL (1.9-2.7); PHOSPHOROUS 4.3 mg/dL (2.5-5.0); POTASSIUM SERUM 3.4 mEq/L (3.5-5.1); SGOT 188 U/L (13-39); SGPT/ALT 461 U/L (7-52); SODIUM SERUM 134 mEq/L (136-145)
[2017-05-31] MEDS: Morphine Sulfate 2 mg/mL 1mL Syr IVP PRN ×3 (06:20→16:32)
[2017-05-31] MEDS: INSULIN ASPART SLIDING SCALE 100 UNITS/ML UNIT SUBQ SCH ×4 (07:11→21:14)
[2017-05-31] MEDS: Pantoprazole 40 mg EC Tab PO SCH (08:26)
[2017-05-31 09:46] LABS: CHOLESTEROL 103 mg/dL (<200); TRIGLYCERIDES 79 mg/dL (<150)
[2017-05-31] MEDS ORDERED: Midazolam 1mg/ml 2 ml vial IV ONE (12:31)
[2017-05-31] MEDS ORDERED: Meperidine 50 mg/mL 1mL Syr ONE ×2 (12:45→15:00)
[2017-05-31] MEDS ORDERED: METHYLENE BLUE 10 MG/ML ONE (12:46)
[2017-05-31] MEDS ORDERED: Bupivacaine 0.5% W/Ep 10 mL Vial ONE ×2 (12:54→13:02)
--- NOTE | 2017-05-31 13:21 | Infectious Disease Prog Note ---
Infectious Disease Subjective - Review of Systems Service Date: 05/31/17 Subjective: No new change, C/o abd pain in LUQ. Infectious Disease Objective - Results Result Diagrams: 05/31/17 05:25 05/31/17 05:25 Recent Labs: Laboratory Last Values WBC 7.0 Th/cmm (4.8-10.8) D 05/31/17 05:25 RBC 3.01 Mil/cmm (3.80-5.20) L 05/31/17 05:25 Hgb 9.3 gm/dL (11.7-16.1) L 05/31/17 05:25 Hct 27.1 % (35.0-45.0) L 05/31/17 05:25 MCV 90.0 fl (81-100) 05/31/17 05:25 MCH 30.8 pg (27.0-31.0) 05/31/17 05:25 MCHC Differential 34.2 pg (28.0-36.0) 05/31/17 05:25 RDW 14.5 % (11.5-20.0) 05/31/17 05:25 Plt Count 310 Th/cmm (150-400) 05/31/17 05:25 MPV 7.7 fl 05/31/17 05:25 Neutrophils % 60.5 % (40.0-80.0) 05/31/17 05:25 Lymphocytes % 26.0 % (20.0-50.0) 05/31/17 05:25 Monocytes % 10.8 % (2.0-10.0) H 05/31/17 05:25 Eosinophils % 2.1 % (0.0-5.0) 05/31/17 05:25 Basophils % 0.6 % (0.0-2.0) 05/31/17 05:25 PT 11.0 SECONDS (9.5-11.5) 05/31/17 05:25 INR 1.06 (0.5-1.4) 05/31/17 05:25 Sodium 134 mEq/L (136-145) L 05/31/17 05:25 Potassium 3.4 mEq/L (3.5-5.1) L 05/31/17 05:25 Chloride 104 mEq/L (98-107) 05/31/17 05:25 Carbon Dioxide 26.1 mEq/L (21.0-31.0) 05/31/17 05:25 Anion Gap 7.3 (7.0-16.0) 05/31/17 05:25 BUN 27 mg/dL (7-25) H 05/31/17 05:25 Creatinine 1.1 mg/dL (0.6-1.2) 05/31/17 05:25 Est GFR ( Amer) > 60.0 ml/min (>90) 05/31/17 05:25 Est GFR (Non-Af Amer) 52.3 ml/min 05/31/17 05:25 BUN/Creatinine Ratio 24.5 05/31/17 05:25 Glucose 281 mg/dL (70-105) H 05/31/17 05:25 POC Glucose 134 MG/DL (70 - 105) H 05/31/17 11:38 Hemoglobin A1c % 6.5 % (4.0-6.0) H 05/30/17 06:16 Whole Bld Lactic Acid 1.25 mmol/L (0.60-1.99) 05/28/17 16:22 Calcium 8.9 mg/dL (8.6-10.3) 05/31/17 05:25 Phosphorus 4.3 mg/dL (2.5-5.0) 05/31/17 05:25 Magnesium 1.9 mg/dL (1.9-2.7) 05/31/17 05:25 Total Bilirubin 0.3 mg/dL (0.3-1.0) 05/31/17 05:25 AST 188 U/L (13-39) H 05/31/17 05:25 ALT 461 U/L (7-52) H 05/31/17 05:25 Alkaline Phosphatase 456 U/L (34-104) H 05/31/17 05:25 Troponin I 0.01 ng/mL (0.01-0.05) 05/28/17 16:22 Total Protein 6.1 gm/dL (6.0-8.3) 05/31/17 05:25 Albumin 2.8 gm/dL (3.7-5.3) L 05/31/17 05:25 Globulin 3.3 gm/dL 05/31/17 05:25 Albumin/Globulin Ratio 0.9 (1.0-1.8) L 05/31/17 05:25 Prealbumin 19 mg/dL (10-36) 05/29/17 06:35 Triglycerides 79 mg/dL (<150) 05/31/17 05:25 Cholesterol 103 mg/dL (<200) 05/31/17 05:25 LDL Cholesterol Direct 78 mg/dL (75-193) 05/29/17 06:35 HDL Cholesterol 23 mg/dL (23-92) 05/29/17 06:35 Amylase 60 U/L (29-103) 05/28/17 16:22 Lipase 33 U/L (11-82) 05/28/17 16:22 TSH 1.14 uIU/ml (0.34-5.60) 05/29/17 06:35 Urine Source CATH 05/28/17 19:00 Urine Color YELLOW 05/28/17 19:00 Urine Clarity HAZY (CLEAR) 05/28/17 19:00 Urine pH 6.5 05/28/17 19:00 Ur Specific [place] 1.015 (1.005-1.030) 05/28/17 19:00 Urine Protein TRACE mg/dL (NEGATIVE) 05/28/17 19:00 Urine Glucose (UA) NEGATIVE mg/dL (NEGATIVE) 05/28/17 19:00 Urine Ketones NEGATIVE mg/dL (NEGATIVE) 05/28/17 19:00 Urine Blood TRACE (NEGATIVE) 05/28/17 19:00 Urine Nitrate NEGATIVE (NEGATIVE) 05/28/17 19:00 Urine Bilirubin NEGATIVE (NEGATIVE) 05/28/17 19:00 Urine Urobilinogen 0.2 E.U./dL (0.2 - 1.0) 05/28/17 19:00 Ur Leukocyte Esterase SMALL (NEGATIVE) H 05/28/17 19:00 Urine RBC 2-5 /hpf (0-5) 05/28/17 19:00 Urine WBC 50-100 /hpf (0-5) H 05/28/17 19:00 Ur Epithelial Cells FEW /lpf (FEW) 05/28/17 19:00 Urine Bacteria 1+ /hpf (NONE SEEN) H 05/28/17 19:00 Urine Mucus FEW /lpf (FEW) 05/28/17 19:00 Blood Type O POSITIVE 05/30/17 15:29 Antibody Screen NEGATIVE 05/30/17 15:29 - Physical Exam Vitals and I&O: Vital Signs Temp 97.6 F 05/31/17 08:00 Pulse 87 05/31/17 08:24 Resp 18 05/31/17 08:00 BP 111/61 05/31/17 08:00 Pulse Ox 97 05/31/17 04:00 Intake & Output 05/30/17 05/31/17 05/31/17 18:59 06:59 18:59 Intake Total 440 620 50 Balance 440 620 50 Weight (lbs) 66.678 kg 66.996 kg 66.678 kg Intake: Oral 120 TPN/PPN 440 500 50 Other: # Voids 3 1 2 # Bowel Movements 0 0 Active Medications: Current Medications Clonidine HCl (Catapres) 0.2 mg PO DAILY ANISH Stop: 07/28/17 08:59 Last Admin: 05/31/17 08:24 Dose: Not Given Ceftriaxone Sodium 1 gm/ (Sodium Chloride) 50 mls @ 100 mls/hr IV Q24HR ANISH Stop: 07/27/17 22:59 Last Admin: 05/29/17 22:01 Dose: 100 mls/hr Sodium Chloride (Nacl 0.9%) 1,000 mls @ 50 mls/hr IV .Q20H ANISH Stop: 07/29/17 14:59 Last Admin: 05/30/17 18:00 Dose: 50 mls/hr Multivitamins/Minerals 10 ml/Dextrose/ Amino Acids/Electrolytes/ Fat Emulsion Intravenous 1,200 mls @ 50 mls/hr IV .Q24H ANISH Stop: 07/29/17 14:59 Last Admin: 05/30/17 17:14 Dose: 50 mls/hr Insulin Aspart (Novolog Insulin Sliding Scale) 0 units SUBQ ACHS ANISH PRN Reason: Protocol Stop: 07/27/17 22:14 Last Admin: 05/31/17 12:03 Dose: Not Given Miscellaneous (Tpn Per Pharmacy) 1 ea MC DAILY ANISH Stop: 07/28/17 08:59 Morphine Sulfate (Morphine) 1 mg IVP Q6HR PRN PRN Reason: Abdominal Pain Stop: 07/28/17 15:01 Last Admin: 05/31/17 12:14 Dose: 1 mg Mupirocin (Bactroban Oint) 1 appl NS BID ANISH Stop: 06/04/17 17:01 Last Admin: 05/31/17 08:26 Dose: Not Given Ondansetron HCl (Zofran Odt) 4 mg PO Q6HR PRN PRN Reason: Nausea Stop: 07/27/17 20:50 Last Admin: 05/29/17 05:56 Dose: 4 mg Oxycodone/Acetaminophen (Percocet 5/325mg Oral Tab) 1 tab PO QID PRN PRN Reason: Pain (Moderate) Stop: 07/27/17 20:50 Last Admin: 05/30/17 22:52 Dose: 1 tab Pantoprazole Sodium (Protonix) 40 mg PO Q12HR ANISH Stop: 07/27/17 21:59 Last Admin: 05/31/17 08:26 Dose: Not Given Zolpidem Tartrate (Ambien) 5 mg PO HS PRN PRN Reason: Insomnia Stop: 07/27/17 20:50 Last Admin: 05/30/17 23:20 Dose: 5 mg General: no acute distress, well developed, well nourished HEENT: atraumatic, normocephalic, PERRLA, EOMI Neck: supple, thyromegaly Cardiovascular: S1S2, regular Lungs: no clear to auscultation bilaterally, no clear to percussion Abdomen: soft, distended, no tender Extremities: no cyanosis, no clubbing, no edema Neurological: awake, alert, oriented Skin: intact - Procedures Procedures: Procedures Procedure Code Date BYPASS STOMACH TO JEJUNUM, OPEN APPROACH [id number] 01/25/17 DRAINAGE OF PERITONEAL CAVITY WITH DRAIN DEV, OPEN APPROACH [id number] 01/25/17 FUSION OF STOMACH AND BOWEL 07228 01/25/17 INSERT INFUSION DEV IN R INT JUGULAR VEIN, PERC [id number] 01/25/17 INSERTION OF INFUSION DEVICE INTO R ATRIUM, [facility] APPROACH 02G100K 01/25/17 INSPECTION OF GASTROINTESTINAL TRACT, OPEN APPROACH [id number] 01/25/17 REMOVAL OF GALLBLADDER 95211 01/25/17 REOPENING OF ABDOMEN 51510 01/25/17 REPAIR STOMACH, OPEN APPROACH [id number] 01/25/17 RESECTION OF GALLBLADDER, OPEN APPROACH [id number] 01/25/17 RESPIRATORY VENTILATION, LESS THAN 24 CONSECUTIVE HOURS [id number] 01/25/17 STOMACH SURGERY PROCEDURE 89083 01/25/17 VENT MGMT INPAT INIT DAY 64589 01/25/17 Infectious Disease Assmt/Plan - Problem List Patient Problems: All Active Problems H/O diabetes mellitus (Acute) Z86.39 H/O drug abuse (Acute) Z87.898 H/O: HTN (hypertension) (Acute) Z86.79 POSTCHOLECYSTECTOMY (Acute) UTI (urinary tract infection) (Acute) closeure og gastric perf (Acute) cplacement of new gj (Acute) h/o dementia (Acute) lysisi of adhesions (Acute) r/o sepsis (Acute) s/p surgery (Acute) septic shock (Acute) tachycardia (Acute) - Assessment Assessment: 1. Abdominal pain, unknown etiology. 2. Gastrocutaneous fistula. 3. UTI. 4. Leukocytosis. Improved. Plan: Continue Rocephin at this time. - Plan Plan: Continue Rocephin. Nutritional Asmnt/Malnutr-PDOC - Dietary Evaluation Malnutrition Findings (Please click <Entered> for more info): Nutritional Asmnt/Malnutrition Start: 05/30/17 15: 01 Text: Status: Complete Freq: Document 05/30/17 15:01 GSUN (Rec: 05/30/17 15:47 GSUN [email or web address]) Nutritional Asmnt/Malnutrition Patient General Information Nutritional Screening High Risk Screening Diagnosis Abd pain, gastrocutaneous fistula, UTI, leukocytosis ( improved) Pertinent Medical Hx/Surgical Hx HTN, DM, cholecystectomy past January 2017 Subjective Information 71 year old female from SNF. Upper GI series today, RN stated possible surgeries pending. Pt was alert and pleasant, appeared anxious, aware of medical condition and TPN/nutrition plan of care. RD explained TPN again, pt has no further questions. Pt reported she has been on TPN since January 2017. Found SNF TPN order in transfer chart, noted under "dosing weight: 134.4lb," pt confirmed wt 130lb measured this month. Questionabled EMR weight, unable to obtain CBW due to bedscale not calibrated. Unable to compelte physical assessment due to heavy blankets. Pt report usual BM pattern once every 2-3 days, given laxative at SNF to promote BM every day. Current Diet Order/ Nutrition Support D25% AA4.25% at 40ml/hr with IL20% 200ml, providing 1359kcal, 40g protein Pertinent Medications Novolog, TPN, Morphine, Multivitamins, Zofran, Protonix, Nacl 0.9% Pertinent Labs 05/29: triglycerides 89 WNL 05/30: BUN 29H (improving), creatinine WNL, glucose 197H, total bilirubin WNL, A1c 6.5H Nutritional Hx/Data Height 1.73 m Height (Calculated Centimeters) 172.7 Current Weight (lbs) 66.678 kg Weight (Calculated Kilograms) 66.7 Weight (Calculated Grams) 41668.1 Usual body Weight (lbs) 130 [place] Body Weight 154 Weight Status Approriate GI Symptoms GI Symptoms Vomitting Cultural/Ethnic/Orthodoxy Belief [facility]: Dextrose 288gm, AA96gm, IL 18g, 2010ml, providing 1525kcal. Skin Integrity/Comment: Asad Eid. credit assessment analyst: abdomen rash/fistula, otherwise skin intact. Estimated Nutritional Goals Calories/Kcals/Kg UBW 130lb/59.1kg Kcals Calculated 1478-1773kcal (25-30kcal/kg) Protein Calculated 59-83g (1-1.4g/kg) Fluid: ml Per MD Nutritional Problem 1. 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 Recommend TPN D19% AA5.5% at 50ml/hr with IL20% 250ml, providing 1539kcal, 66g protein. Dx DM, 50% of total kcal from dextrose. Carb load 2.6mg/kg/min (using SNF weight 134.4lb/61.1kg). Pt has been on TPN since January 2017. 2. Obtain CBW, bedscale inproperly calibrated during visit. Dosing weight 134.4lb noted under SNF TPN order. Pt stated UBW 130lb. Expected Outcomes/Goals Expected Outcomes/Goals 1. Pt to meet 100% of estimated nutritional needs on TPN with tolerance.
[2017-05-31] MEDS ORDERED: Meperidine 25 mg/mL 1mL Syr IVP PRN (14:55)
[2017-05-31] MEDS ORDERED: Lactated Ringer 1,000 ML IV SCH (15:00)
--- NOTE | 2017-05-31 15:24 | Operative Report ---
DATE OF SURGERY: 05/31/2017 PREOPERATIVE DIAGNOSES: 1. Gastrocutaneous fistula. 2. Status post gastrojejunostomy for obesity. 3. Dementia. 4. Diabetes mellitus. 5. Hypertension. POSTOPERATIVE DIAGNOSES: 1. Gastrocutaneous fistula. 2. Status post gastrojejunostomy for obesity. 3. Dementia. 4. Diabetes mellitus. 5. Hypertension. OPERATION DONE: Exploratory laparotomy with: 1. Lysis of dense adhesions. 2. Gastrojejunostomy anastomosis. SURGEON: Mark Anthony Coyne M.D. GRAPHIC USER INTERFACE DESIGNER: ____. ANESTHESIA: General. ANESTHESIOLOGIST: Grzegorz Acosta M.D. ESTIMATED BLOOD LOSS: 100 mL. OPERATIVE FINDINGS: There was fistula between the previous gastrojejunostomy anastomosis. On entering the stomach at injection of methylene blue via the NG tube, there was leak of dye into the fistula. DESCRIPTION OF PROCEDURE: The patient was given general anesthesia. The abdomen was prepped with ChloraPrep and draped in appropriate manner. An incision was made around the old scar and the scar was removed. The abdominal incision was carried through the peritoneum. Blunt and sharp dissection was carried out until the adhesions to the anterior abdominal wall were lysed sharply and bluntly. The previous anastomosis was exposed and injection of methylene blue was made via the NG tube. This showed a leak in the previous gastrojejunostomy anastomosis. The anastomosis was taken down and enlarged and a new anastomosis was performed utilizing a [id number] anastomosis utilizing interrupted sutures of 3-0 silk. This was done because of the lack of space to do a SONIDO anastomosis. Following this, omentum was sutured over the anastomosis to further prevent leak. Irrigation with ____ carried out as washout abdominal cavity and a Jose-Miranda drain was left in a new anastomotic region. The abdominal incision was closed with running suture of #1 PDS. Subcutaneous tissues were closed with 3-0 Vicryl and the skin was closed with subcuticular suture of 4-0 Vicryl. The patient tolerated the procedure well. JOB# [id number]
--- NOTE | 2017-05-31 15:25 | General Progress Note ---
Subjective - Review of Systems Service Date: 05/31/17 Subjective: s/p surgery Objective - Results Result Diagrams: 05/31/17 05:25 05/31/17 05:25 Recent Labs: Laboratory Last Values WBC 7.0 Th/cmm (4.8-10.8) D 05/31/17 05:25 RBC 3.01 Mil/cmm (3.80-5.20) L 05/31/17 05:25 Hgb 9.3 gm/dL (11.7-16.1) L 05/31/17 05:25 Hct 27.1 % (35.0-45.0) L 05/31/17 05:25 MCV 90.0 fl (81-100) 05/31/17 05:25 MCH 30.8 pg (27.0-31.0) 05/31/17 05:25 MCHC Differential 34.2 pg (28.0-36.0) 05/31/17 05:25 RDW 14.5 % (11.5-20.0) 05/31/17 05:25 Plt Count 310 Th/cmm (150-400) 05/31/17 05:25 MPV 7.7 fl 05/31/17 05:25 Neutrophils % 60.5 % (40.0-80.0) 05/31/17 05:25 Lymphocytes % 26.0 % (20.0-50.0) 05/31/17 05:25 Monocytes % 10.8 % (2.0-10.0) H 05/31/17 05:25 Eosinophils % 2.1 % (0.0-5.0) 05/31/17 05:25 Basophils % 0.6 % (0.0-2.0) 05/31/17 05:25 PT 11.0 SECONDS (9.5-11.5) 05/31/17 05:25 INR 1.06 (0.5-1.4) 05/31/17 05:25 Sodium 134 mEq/L (136-145) L 05/31/17 05:25 Potassium 3.4 mEq/L (3.5-5.1) L 05/31/17 05:25 Chloride 104 mEq/L (98-107) 05/31/17 05:25 Carbon Dioxide 26.1 mEq/L (21.0-31.0) 05/31/17 05:25 Anion Gap 7.3 (7.0-16.0) 05/31/17 05:25 BUN 27 mg/dL (7-25) H 05/31/17 05:25 Creatinine 1.1 mg/dL (0.6-1.2) 05/31/17 05:25 Est GFR ( Amer) > 60.0 ml/min (>90) 05/31/17 05:25 Est GFR (Non-Af Amer) 52.3 ml/min 05/31/17 05:25 BUN/Creatinine Ratio 24.5 05/31/17 05:25 Glucose 281 mg/dL (70-105) H 05/31/17 05:25 POC Glucose 134 MG/DL (70 - 105) H 05/31/17 11:38 Hemoglobin A1c % 6.5 % (4.0-6.0) H 05/30/17 06:16 Whole Bld Lactic Acid 1.25 mmol/L (0.60-1.99) 05/28/17 16:22 Calcium 8.9 mg/dL (8.6-10.3) 05/31/17 05:25 Phosphorus 4.3 mg/dL (2.5-5.0) 05/31/17 05:25 Magnesium 1.9 mg/dL (1.9-2.7) 05/31/17 05:25 Total Bilirubin 0.3 mg/dL (0.3-1.0) 05/31/17 05:25 AST 188 U/L (13-39) H 05/31/17 05:25 ALT 461 U/L (7-52) H 05/31/17 05:25 Alkaline Phosphatase 456 U/L (34-104) H 05/31/17 05:25 Troponin I 0.01 ng/mL (0.01-0.05) 05/28/17 16:22 Total Protein 6.1 gm/dL (6.0-8.3) 05/31/17 05:25 Albumin 2.8 gm/dL (3.7-5.3) L 05/31/17 05:25 Globulin 3.3 gm/dL 05/31/17 05:25 Albumin/Globulin Ratio 0.9 (1.0-1.8) L 05/31/17 05:25 Prealbumin 19 mg/dL (10-36) 05/29/17 06:35 Triglycerides 79 mg/dL (<150) 05/31/17 05:25 Cholesterol 103 mg/dL (<200) 05/31/17 05:25 LDL Cholesterol Direct 78 mg/dL (75-193) 05/29/17 06:35 HDL Cholesterol 23 mg/dL (23-92) 05/29/17 06:35 Amylase 60 U/L (29-103) 05/28/17 16:22 Lipase 33 U/L (11-82) 05/28/17 16:22 TSH 1.14 uIU/ml (0.34-5.60) 05/29/17 06:35 Urine Source CATH 05/28/17 19:00 Urine Color YELLOW 05/28/17 19:00 Urine Clarity HAZY (CLEAR) 05/28/17 19:00 Urine pH 6.5 05/28/17 19:00 Ur Specific [place] 1.015 (1.005-1.030) 05/28/17 19:00 Urine Protein TRACE mg/dL (NEGATIVE) 05/28/17 19:00 Urine Glucose (UA) NEGATIVE mg/dL (NEGATIVE) 05/28/17 19:00 Urine Ketones NEGATIVE mg/dL (NEGATIVE) 05/28/17 19:00 Urine Blood TRACE (NEGATIVE) 05/28/17 19:00 Urine Nitrate NEGATIVE (NEGATIVE) 05/28/17 19:00 Urine Bilirubin NEGATIVE (NEGATIVE) 05/28/17 19:00 Urine Urobilinogen 0.2 E.U./dL (0.2 - 1.0) 05/28/17 19:00 Ur Leukocyte Esterase SMALL (NEGATIVE) H 05/28/17 19:00 Urine RBC 2-5 /hpf (0-5) 05/28/17 19:00 Urine WBC 50-100 /hpf (0-5) H 05/28/17 19:00 Ur Epithelial Cells FEW /lpf (FEW) 05/28/17 19:00 Urine Bacteria 1+ /hpf (NONE SEEN) H 05/28/17 19:00 Urine Mucus FEW /lpf (FEW) 05/28/17 19:00 Blood Type O POSITIVE 05/30/17 15:29 Antibody Screen NEGATIVE 05/30/17 15:29 - Physical Exam Vitals and I&O: Vital Signs Temp 98.0 F 05/31/17 12:00 Pulse 97 05/31/17 12:00 Resp 18 05/31/17 12:00 BP 103/69 05/31/17 12:00 Pulse Ox 95 05/31/17 08:00 Intake & Output 05/30/17 05/31/17 05/31/17 18:59 06:59 18:59 Intake Total 440 620 50 Balance 440 620 50 Weight (lbs) 66.678 kg 66.996 kg 66.678 kg Intake: Oral 120 TPN/PPN 440 500 50 Other: # Voids 3 1 2 # Bowel Movements 0 0 Active Medications: Current Medications Chlorhexidine Gluconate (Peridex) 15 ml MM [phone] [facility] Stop: 07/30/17 19:59 Clonidine HCl (Catapres) 0.2 mg PO DAILY [facility] Stop: 07/28/17 08:59 Last Admin: 05/31/17 08:24 Dose: Not Given Ceftriaxone Sodium 1 gm/ (Sodium Chloride) 50 mls @ 100 mls/hr IV Q24HR ANISH Stop: 07/27/17 22:59 Last Admin: 05/29/17 22:01 Dose: 100 mls/hr Sodium Chloride (Nacl 0.9%) 1,000 mls @ 50 mls/hr IV .Q20H [facility] Stop: 07/29/17 14:59 Last Admin: 05/30/17 18:00 Dose: 50 mls/hr Multivitamins/Minerals 10 ml/Dextrose/ Amino Acids/Electrolytes/ Fat Emulsion Intravenous 1,200 mls @ 50 mls/hr IV .Q24H [facility] Stop: 07/29/17 14:59 Last Admin: 05/30/17 17:14 Dose: 50 mls/hr Lactated Ringer's (Lactated Ringer) 1,000 mls @ 0 mls/hr IV .Q0M ANISH PRN Reason: TKO Stop: 06/01/17 14:59 Insulin Aspart (Novolog Insulin Sliding Scale) 0 units SUBQ ACHS ANISH PRN Reason: Protocol Stop: 07/27/17 22:14 Last Admin: 05/31/17 12:03 Dose: Not Given Meperidine HCl (Demerol) 12.5 mg IVP UD PRN PRN Reason: POST-OP PAIN Stop: 06/01/17 14:54 Miscellaneous (Tpn Per Pharmacy) 1 ea MC DAILY [facility] Stop: 07/28/17 08:59 Morphine Sulfate (Morphine) 1 mg IVP Q6HR PRN PRN Reason: Abdominal Pain Stop: 07/28/17 15:01 Last Admin: 05/31/17 12:14 Dose: 1 mg Morphine Sulfate (Morphine) 2 mg IVP Q4HR PRN PRN Reason: Abdominal Pain Stop: 07/30/17 14:36 Mupirocin (Bactroban Oint) 1 appl NS BID [facility] Stop: 06/04/17 17:01 Last Admin: 05/31/17 08:26 Dose: Not Given Ondansetron HCl (Zofran Odt) 4 mg PO Q6HR PRN PRN Reason: Nausea Stop: 07/27/17 20:50 Last Admin: 05/29/17 05:56 Dose: 4 mg Ondansetron HCl (Zofran) 4 mg IV X1 PRN PRN Reason: Nausea / Vomiting Stop: 06/01/17 14:54 Oxycodone/Acetaminophen (Percocet 5/325mg Oral Tab) 1 tab PO QID PRN PRN Reason: Pain (Moderate) Stop: 07/27/17 20:50 Last Admin: 05/30/17 22:52 Dose: 1 tab Pantoprazole Sodium (Protonix) 40 mg PO Q12HR [facility] Stop: 07/27/17 21:59 Last Admin: 05/31/17 08:26 Dose: Not Given Pantoprazole Sodium (Protonix) 40 mg IVP BID [facility] Stop: 07/30/17 16:59 Zolpidem Tartrate (Ambien) 5 mg PO HS PRN PRN Reason: Insomnia Stop: 07/27/17 20:50 Last Admin: 05/30/17 23:20 Dose: 5 mg General: No acute distress HEENT: Atraumatic Cardiovascular: Regular rate, Normal S1, Normal S2 Abdomen: Bowel sounds - Procedures Procedures: Procedures Procedure Code Date BYPASS STOMACH TO JEJUNUM, OPEN APPROACH [id number] 01/25/17 DRAINAGE OF PERITONEAL CAVITY WITH DRAIN DEV, OPEN APPROACH [id number] 01/25/17 FUSION OF STOMACH AND BOWEL 65372 01/25/17 INSERT INFUSION DEV IN R INT JUGULAR VEIN, PERC [id number] 01/25/17 INSERTION OF INFUSION DEVICE INTO R ATRIUM, PERC APPROACH [id number] 01/25/17 INSPECTION OF GASTROINTESTINAL TRACT, OPEN APPROACH [id number] 01/25/17 REMOVAL OF GALLBLADDER 81528 01/25/17 REOPENING OF ABDOMEN 59327 01/25/17 REPAIR STOMACH, OPEN APPROACH [id number] 01/25/17 RESECTION OF GALLBLADDER, OPEN APPROACH [id number] 01/25/17 RESPIRATORY VENTILATION, LESS THAN 24 CONSECUTIVE HOURS [id number] 01/25/17 STOMACH SURGERY PROCEDURE 69010 01/25/17 VENT MGMT INPAT INIT DAY 61950 01/25/17 Assessment/Plan - Problem List Patient Problems: All Active Problems H/O diabetes mellitus (Acute) Z86.39 H/O drug abuse (Acute) Z87.898 H/O: HTN (hypertension) (Acute) Z86.79 POSTCHOLECYSTECTOMY (Acute) UTI (urinary tract infection) (Acute) closeure og gastric perf (Acute) cplacement of new gj (Acute) h/o dementia (Acute) lysisi of adhesions (Acute) r/o sepsis (Acute) s/p surgery (Acute) septic shock (Acute) tachycardia (Acute) - Assessment Assessment: epigastric pain gastritis ostomy hole with discharge s/p cholecystectomy - Plan Plan: as per order sheet Nutritional Asmnt/Malnutr-PDOC - Dietary Evaluation Malnutrition Findings (Please click <Entered> for more info): Nutritional Asmnt/Malnutrition Start: 05/30/17 15: 01 Text: Status: Complete Freq: Document 05/30/17 15:01 GSUN (Rec: 05/30/17 15:47 [email or web address]) Nutritional Asmnt/Malnutrition Patient General Information Nutritional Screening High Risk Screening Diagnosis Abd pain, gastrocutaneous fistula, UTI, leukocytosis ( improved) Pertinent Medical Hx/Surgical Hx HTN, DM, cholecystectomy past January 2017 Subjective Information 71 year old female from SNF. Upper GI series today, RN stated possible surgeries pending. Pt was alert and pleasant, appeared anxious, aware of medical condition and TPN/nutrition plan of care. RD explained TPN again, pt has no further questions. Pt reported she has been on TPN since January 2017. Found SNF TPN order in transfer chart, noted under "dosing weight: 134.4lb," pt confirmed wt 130lb measured this month. Questionabled EMR weight, unable to obtain CBW due to bedscale not calibrated. Unable to compelte physical assessment due to heavy blankets. Pt report usual BM pattern once every 2-3 days, given laxative at SNF to promote BM every day. Current Diet Order/ Nutrition Support D25% AA4.25% at 40ml/hr with IL20% 200ml, providing 1359kcal, 40g protein Pertinent Medications Novolog, TPN, Morphine, Multivitamins, Zofran, Protonix, Nacl 0.9% Pertinent Labs 05/29: triglycerides 89 WNL 05/30: BUN 29H (improving), creatinine WNL, glucose 197H, total bilirubin WNL, A1c 6.5H Nutritional Hx/Data Height 1.73 m Height (Calculated Centimeters) 172.7 Current Weight (lbs) 66.678 kg Weight (Calculated Kilograms) 66.7 Weight (Calculated Grams) 71700.1 Usual body Weight (lbs) 130 [place] Body Weight 154 Weight Status Approriate GI Symptoms GI Symptoms Vomitting Cultural/Ethnic/Rastaf[employer] Belief [facility]: Dextrose 288gm, AA96gm, IL 18g, 2010ml, providing 1525kcal. Skin Integrity/Comment: Asad Eid. assessment analyst: abdomen rash/fistula, otherwise skin intact. Estimated Nutritional Goals Calories/Kcals/Kg UBW 130lb/59.1kg Kcals Calculated 1478-1773kcal (25-30kcal/kg) Protein Calculated 59-83g (1-1.4g/kg) Fluid: ml Per MD Nutritional Problem 1. 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 Recommend TPN D19% AA5.5% at 50ml/hr with IL20% 250ml, providing 1539kcal, 66g protein. Dx DM, 50% of total kcal from dextrose. Carb load 2.6mg/kg/min (using SNF weight 134.4lb/61.1kg). Pt has been on TPN since January 2017. 2. Obtain CBW, bedscale inproperly calibrated during visit. Dosing weight 134.4lb noted under SNF TPN order. Pt stated UBW 130lb. Expected Outcomes/Goals Expected Outcomes/Goals 1. Pt to meet 100% of estimated nutritional needs on TPN with tolerance.
--- NOTE | 2017-05-31 15:37 | Infectious Disease Prog Note ---
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 Intubated after surgery. Infectious Disease Objective - Results Result Diagrams: 05/31/17 05:25 05/31/17 05:25 Recent Labs: Laboratory Last Values WBC 7.0 Th/cmm (4.8-10.8) D 05/31/17 05:25 RBC 3.01 Mil/cmm (3.80-5.20) L 05/31/17 05:25 Hgb 9.3 gm/dL (11.7-16.1) L 05/31/17 05:25 Hct 27.1 % (35.0-45.0) L 05/31/17 05:25 MCV 90.0 fl (81-100) 05/31/17 05:25 MCH 30.8 pg (27.0-31.0) 05/31/17 05:25 MCHC Differential 34.2 pg (28.0-36.0) 05/31/17 05:25 RDW 14.5 % (11.5-20.0) 05/31/17 05:25 Plt Count 310 Th/cmm (150-400) 05/31/17 05:25 MPV 7.7 fl 05/31/17 05:25 Neutrophils % 60.5 % (40.0-80.0) 05/31/17 05:25 Lymphocytes % 26.0 % (20.0-50.0) 05/31/17 05:25 Monocytes % 10.8 % (2.0-10.0) H 05/31/17 05:25 Eosinophils % 2.1 % (0.0-5.0) 05/31/17 05:25 Basophils % 0.6 % (0.0-2.0) 05/31/17 05:25 PT 11.0 SECONDS (9.5-11.5) 05/31/17 05:25 INR 1.06 (0.5-1.4) 05/31/17 05:25 Sodium 134 mEq/L (136-145) L 05/31/17 05:25 Potassium 3.4 mEq/L (3.5-5.1) L 05/31/17 05:25 Chloride 104 mEq/L (98-107) 05/31/17 05:25 Carbon Dioxide 26.1 mEq/L (21.0-31.0) 05/31/17 05:25 Anion Gap 7.3 (7.0-16.0) 05/31/17 05:25 BUN 27 mg/dL (7-25) H 05/31/17 05:25 Creatinine 1.1 mg/dL (0.6-1.2) 05/31/17 05:25 Est GFR ( Amer) > 60.0 ml/min (>90) 05/31/17 05:25 Est GFR (Non-Af Amer) 52.3 ml/min 05/31/17 05:25 BUN/Creatinine Ratio 24.5 05/31/17 05:25 Glucose 281 mg/dL (70-105) H 05/31/17 05:25 POC Glucose 134 MG/DL (70 - 105) H 05/31/17 11:38 Hemoglobin A1c % 6.5 % (4.0-6.0) H 05/30/17 06:16 Whole Bld Lactic Acid 1.25 mmol/L (0.60-1.99) 05/28/17 16:22 Calcium 8.9 mg/dL (8.6-10.3) 05/31/17 05:25 Phosphorus 4.3 mg/dL (2.5-5.0) 05/31/17 05:25 Magnesium 1.9 mg/dL (1.9-2.7) 05/31/17 05:25 Total Bilirubin 0.3 mg/dL (0.3-1.0) 05/31/17 05:25 AST 188 U/L (13-39) H 05/31/17 05:25 ALT 461 U/L (7-52) H 05/31/17 05:25 Alkaline Phosphatase 456 U/L (34-104) H 05/31/17 05:25 Troponin I 0.01 ng/mL (0.01-0.05) 05/28/17 16:22 Total Protein 6.1 gm/dL (6.0-8.3) 05/31/17 05:25 Albumin 2.8 gm/dL (3.7-5.3) L 05/31/17 05:25 Globulin 3.3 gm/dL 05/31/17 05:25 Albumin/Globulin Ratio 0.9 (1.0-1.8) L 05/31/17 05:25 Prealbumin 19 mg/dL (10-36) 05/29/17 06:35 Triglycerides 79 mg/dL (<150) 05/31/17 05:25 Cholesterol 103 mg/dL (<200) 05/31/17 05:25 LDL Cholesterol Direct 78 mg/dL (75-193) 05/29/17 06:35 HDL Cholesterol 23 mg/dL (23-92) 05/29/17 06:35 Amylase 60 U/L (29-103) 05/28/17 16:22 Lipase 33 U/L (11-82) 05/28/17 16:22 TSH 1.14 uIU/ml (0.34-5.60) 05/29/17 06:35 Urine Source CATH 05/28/17 19:00 Urine Color YELLOW 05/28/17 19:00 Urine Clarity HAZY (CLEAR) 05/28/17 19:00 Urine pH 6.5 05/28/17 19:00 Ur Specific [place] 1.015 (1.005-1.030) 05/28/17 19:00 Urine Protein TRACE mg/dL (NEGATIVE) 05/28/17 19:00 Urine Glucose (UA) NEGATIVE mg/dL (NEGATIVE) 05/28/17 19:00 Urine Ketones NEGATIVE mg/dL (NEGATIVE) 05/28/17 19:00 Urine Blood TRACE (NEGATIVE) 05/28/17 19:00 Urine Nitrate NEGATIVE (NEGATIVE) 05/28/17 19:00 Urine Bilirubin NEGATIVE (NEGATIVE) 05/28/17 19:00 Urine Urobilinogen 0.2 E.U./dL (0.2 - 1.0) 05/28/17 19:00 Ur Leukocyte Esterase SMALL (NEGATIVE) H 05/28/17 19:00 Urine RBC 2-5 /hpf (0-5) 05/28/17 19:00 Urine WBC 50-100 /hpf (0-5) H 05/28/17 19:00 Ur Epithelial Cells FEW /lpf (FEW) 05/28/17 19:00 Urine Bacteria 1+ /hpf (NONE SEEN) H 05/28/17 19:00 Urine Mucus FEW /lpf (FEW) 05/28/17 19:00 Blood Type O POSITIVE 05/30/17 15:29 Antibody Screen NEGATIVE 05/30/17 15:29 - Physical Exam Vitals and I&O: Vital Signs Temp 98.0 F 05/31/17 12:00 Pulse 97 05/31/17 12:00 Resp 18 05/31/17 12:00 BP 103/69 05/31/17 12:00 Pulse Ox 95 05/31/17 08:00 Intake & Output 05/30/17 05/31/17 05/31/17 18:59 06:59 18:59 Intake Total 440 620 50 Balance 440 620 50 Weight (lbs) 66.678 kg 66.996 kg 66.678 kg Intake: Oral 120 TPN/PPN 440 500 50 Other: # Voids 3 1 2 # Bowel Movements 0 0 Active Medications: Current Medications Chlorhexidine Gluconate (Peridex) 15 ml MM [phone] [facility] Stop: 07/30/17 19:59 Clonidine HCl (Catapres) 0.2 mg PO DAILY [facility] Stop: 07/28/17 08:59 Last Admin: 05/31/17 08:24 Dose: Not Given Ceftriaxone Sodium 1 gm/ (Sodium Chloride) 50 mls @ 100 mls/hr IV Q24HR [facility] Stop: 07/27/17 22:59 Last Admin: 05/29/17 22:01 Dose: 100 mls/hr Sodium Chloride (Nacl 0.9%) 1,000 mls @ 50 mls/hr IV .Q20H [facility] Stop: 07/29/17 14:59 Last Admin: 05/30/17 18:00 Dose: 50 mls/hr Multivitamins/Minerals 10 ml/Dextrose/ Amino Acids/Electrolytes/ Fat Emulsion Intravenous 1,200 mls @ 50 mls/hr IV .Q24H [facility] Stop: 07/29/17 14:59 Last Admin: 05/30/17 17:14 Dose: 50 mls/hr Lactated Ringer's (Lactated Ringer) 1,000 mls @ 0 mls/hr IV .Q0M [facility] PRN Reason: TKO Stop: 06/01/17 14:59 Insulin Aspart (Novolog Insulin Sliding Scale) 0 units SUBQ ACHS [facility] PRN Reason: Protocol Stop: 07/27/17 22:14 Last Admin: 05/31/17 12:03 Dose: Not Given Meperidine HCl (Demerol) 12.5 mg IVP UD PRN PRN Reason: POST-OP PAIN Stop: 06/01/17 14:54 Miscellaneous (Tpn Per Pharmacy) 1 ea MC DAILY [facility] Stop: 07/28/17 08:59 Morphine Sulfate (Morphine) 1 mg IVP Q6HR PRN PRN Reason: Abdominal Pain Stop: 07/28/17 15:01 Last Admin: 05/31/17 12:14 Dose: 1 mg Morphine Sulfate (Morphine) 2 mg IVP Q4HR PRN PRN Reason: Abdominal Pain Stop: 07/30/17 14:36 Mupirocin (Bactroban Oint) 1 appl NS BID [facility] Stop: 06/04/17 17:01 Last Admin: 05/31/17 08:26 Dose: Not Given Ondansetron HCl (Zofran Odt) 4 mg PO Q6HR PRN PRN Reason: Nausea Stop: 07/27/17 20:50 Last Admin: 05/29/17 05:56 Dose: 4 mg Ondansetron HCl (Zofran) 4 mg IV X1 PRN PRN Reason: Nausea / Vomiting Stop: 06/01/17 14:54 Oxycodone/Acetaminophen (Percocet 5/325mg Oral Tab) 1 tab PO QID PRN PRN Reason: Pain (Moderate) Stop: 07/27/17 20:50 Last Admin: 05/30/17 22:52 Dose: 1 tab Pantoprazole Sodium (Protonix) 40 mg PO Q12HR [facility] Stop: 07/27/17 21:59 Last Admin: 05/31/17 08:26 Dose: Not Given Pantoprazole Sodium (Protonix) 40 mg IVP BID [facility] Stop: 07/30/17 16:59 Zolpidem Tartrate (Ambien) 5 mg PO HS PRN PRN Reason: Insomnia Stop: 07/27/17 20:50 Last Admin: 05/30/17 23:20 Dose: 5 mg General: no acute distress, well developed, well nourished HEENT: atraumatic, normocephalic, EOMI Neck: supple, no thyromegaly, no lymphadenopathy Cardiovascular: S1S2, regular Lungs: clear to auscultation bilaterally, clear to percussion Abdomen: soft, other (surgical incision, and yue drain.), no tender, no distended Extremities: no cyanosis, no clubbing, no edema Neurological: other (sedated.) - Procedures Procedures: Procedures Procedure Code Date BYPASS STOMACH TO JEJUNUM, OPEN APPROACH [id number] 01/25/17 DRAINAGE OF PERITONEAL CAVITY WITH DRAIN DEV, OPEN APPROACH [id number] 01/25/17 FUSION OF STOMACH AND BOWEL 05075 01/25/17 INSERT INFUSION DEV IN R INT JUGULAR VEIN, PERC [id number] 01/25/17 INSERTION OF INFUSION DEVICE INTO R ATRIUM, PERC APPROACH [id number] 01/25/17 INSPECTION OF GASTROINTESTINAL TRACT, OPEN APPROACH [id number] 01/25/17 REMOVAL OF GALLBLADDER 22321 01/25/17 REOPENING OF ABDOMEN 03504 01/25/17 REPAIR STOMACH, OPEN APPROACH [id number] 01/25/17 RESECTION OF GALLBLADDER, OPEN APPROACH [id number] 01/25/17 RESPIRATORY VENTILATION, LESS THAN 24 CONSECUTIVE HOURS [id number] 01/25/17 STOMACH SURGERY PROCEDURE 19728 01/25/17 VENT MGMT INPAT IN DAY 81196 01/25/17 Infectious Disease Assmt/Plan - Problem List Patient Problems: All Active Problems H/O diabetes mellitus (Acute) Z86.39 H/O drug abuse (Acute) Z87.898 H/O: HTN (hypertension) (Acute) Z86.79 POSTCHOLECYSTECTOMY (Acute) UTI (urinary tract infection) (Acute) closeure og gastric perf (Acute) cplacement of new gj (Acute) h/o dementia (Acute) lysisi of adhesions (Acute) r/o sepsis (Acute) s/p surgery (Acute) septic shock (Acute) tachycardia (Acute) - Assessment Assessment: 1. Abdominal pain, unknown etiology. 2. Gastrocutaneous fistula. 3. UTI. 4. Leukocytosis. Improved. Plan: Change antibiotic to zyvox, meropenem and colistin as patient had MDRO grew from wound at [facility], prior to her discharge. - Plan Plan: Continue Rocephin. Nutritional Asmnt/Malnutr-PDOC - Dietary Evaluation Malnutrition Findings (Please click <Entered> for more info): Nutritional Asmnt/Malnutrition Start: 05/30/17 15: 01 Text: Status: Complete Freq: Document 05/30/17 15:01 GSUN (Rec: 05/30/17 15:47 GSUN [email or web address]) Nutritional Asmnt/Malnutrition Patient General Information Nutritional Screening High Risk Screening Diagnosis Abd pain, gastrocutaneous fistula, UTI, leukocytosis ( improved) Pertinent Medical Hx/Surgical Hx HTN, DM, cholecystectomy past January 2017 Subjective Information 71 year old female from SNF. Upper GI series today, RN stated possible surgeries pending. Pt was alert and pleasant, appeared anxious, aware of medical condition and TPN/nutrition plan of care. RD explained TPN again, pt has no further questions. Pt reported she has been on TPN since January 2017. Found SNF TPN order in transfer chart, noted under "dosing weight: 134.4lb," pt confirmed wt 130lb measured this month. Questionabled EMR weight, unable to obtain CBW due to bedscale not calibrated. Unable to compelte physical assessment due to heavy blankets. Pt report usual BM pattern once every 2-3 days, given laxative at SNF to promote BM every day. Current Diet Order/ Nutrition Support D25% AA4.25% at 40ml/hr with IL20% 200ml, providing 1359kcal, 40g protein Pertinent Medications Novolog, TPN, Morphine, Multivitamins, Zofran, Protonix, Nacl 0.9% Pertinent Labs 05/29: triglycerides 89 WNL 05/30: BUN 29H (improving), creatinine WNL, glucose 197H, total bilirubin WNL, A1c 6.5H Nutritional Hx/Data Height 1.73 m Height (Calculated Centimeters) 172.7 Current Weight (lbs) 66.678 kg Weight (Calculated Kilograms) 66.7 Weight (Calculated Grams) 52196.1 Usual body Weight (lbs) 130 Mason Body Weight 154 Weight Status Approriate GI Symptoms GI Symptoms Vomitting Cultural/Ethnic/Christian Belief [facility]: Dextrose 288gm, AA96gm, IL 18g, 2010ml, providing 1525kcal. 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 Estimated Nutritional Goals Calories/Kcals/Kg UBW 130lb/59.1kg Kcals Calculated 1478-1773kcal (25-30kcal/kg) Protein Calculated 59-83g (1-1.4g/kg) Fluid: ml Per MD Nutritional Problem 1. 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 Recommend TPN D19% AA5.5% at 50ml/hr with IL20% 250ml, providing 1539kcal, 66g protein. Dx DM, 50% of total kcal from dextrose. Carb load 2.6mg/kg/min (using SNF weight 134.4lb/61.1kg). Pt has been on TPN since January 2017. 2. Obtain CBW, bedscale inproperly calibrated during visit. Dosing weight 134.4lb noted under SNF TPN order. Pt stated UBW 130lb. Expected Outcomes/Goals Expected Outcomes/Goals 1. Pt to meet 100% of estimated nutritional needs on TPN with tolerance.
--- NOTE | 2017-05-31 16:14 | Consultation ---
DATE OF CONSULTATION: 05/29/2017 REFERRING PHYSICIAN: Dr. Aggarwal. REASON FOR CONSULTATION: Midline drainage fistula. Thank you for referring this patient to me. HISTORY OF PRESENT ILLNESS: This is a 71-year-old female who underwent exploration in January of this year for perforation of the stomach at site of previous Nas-en-Y gastrojejunostomy performed for obesity in 2002. The patient at that time was homeless and on multiple drugs. At this time, she developed a draining sinus from the midline for several weeks. Upper GI series will be done with Gastrografin. CBC and chemistries are within normal limits. The patient has no family except a daughter ____, but they have not talked to each other for several years. Possible exploration to close the fistula discussed with the patient. JOB# [id number]
[2017-05-31] MEDS: Sodium Chloride 0.9% 1,000 ML IV SCH (17:36)
[2017-05-31] MEDS: Meropenem 1 GM in Sodium Chloride 0.9% 100 ML IV SCH ×2 (17:37→20:34)
[2017-05-31] MEDS: Morphine Sulfate 2 mg/mL 1mL Syr IV PRN ×3 (18:13→23:17)
[2017-05-31] MEDS: Albuterol/Ipratropium Neb 3 ML AERS HHN SCH (19:50)
[2017-05-31] MEDS: Budesonide 0.5 Mg/2 mL Ud HHN SCH (19:50)
[2017-05-31] MEDS: Linezolid 600mg/300mL 600 MG/300 ML BAG IV SCH (20:35)
[2017-05-31] MEDS: Chlorhexidine Gluconate 0.12% 15mL Mouthwash MM SCH (20:36)
[2017-05-31] MEDS: TPN 10%-70% CUSTOM IV SCH (20:39)
[2017-05-31] MEDS: Diltiazem 5 mg/mL 5mL Vial IVP PRN (22:01)
[2017-06-01] MEDS: Albuterol/Ipratropium Neb 3 ML AERS HHN SCH ×7 (00:08→22:59)
[2017-06-01] MEDS: Diltiazem 5 mg/mL 5mL Vial IVP PRN (01:08)
[2017-06-01] MEDS: Morphine Sulfate 2 mg/mL 1mL Syr IV PRN ×2 (02:16→04:53)
--- NOTE | 2017-06-01 04:44 | Consultation ---
DATE OF CONSULTATION: 05/31/2017 REASON FOR CONSULTATION: Followup postoperative respiratory failure. REFERRING PHYSICIAN: Dr. Aggarwal. CONSULT NOTE: This is a 71-year-old female who has had previous multiple bowel surgery with abscesses, also formation of fistula. The patient presented up here with epigastric pain and subsequently the patient had significant issues with ____. Subsequently the patient was taken to the surgery for possibly fistulectomy and subsequently I was asked to see postoperative. As the patient is on the vent, meaningful detailed history from the patient is not available. Discussion with Dr. Michael Arias, history of previous multiple abdominal surgeries, including history of previous abscesses and entero cutaneous fistula as well. Other medical history including history of hypertension, diabetic mellitus, history of drug abuse and also history of cholecystectomy. PHYSICAL EXAMINATION: GENERAL: This is an elderly looking female, just come from OR, appears to be trying to get the things around, no respiratory distress. VITAL SIGNS: Heart rate is 120, blood pressure 110/80. The patient is afebrile. HEENT: Head is essentially unremarkable. Pupils appear to be equal and reacting to light. Conjunctivae are slightly pallor. Oral cavity shows smaller size endotracheal tube with fair to poor dental hygiene. NECK: No nuchal rigidity. Good bilateral carotid upstroke. CHEST: Shows diminished air entry with occasional secretory noise. HEART: Regular. ABDOMEN: The surgical scar with SANCHEZ drainage, tube draining fluid. EXTREMITIES: Shows no peripheral edema. No cyanosis or clubbing. LABORATORY DATA: The patient's chest x-ray, which was done on 05/30/2017, last one shows slightly hyperinflated lung, otherwise unremarkable ____ technique. ASSESSMENT: The patient has postoperative respiratory failure secondary to pain and ____ most contributory, questionable as to patient has underlying chronic obstructive pulmonary disease or not. PLANS AND SUGGESTIONS: We will go ahead and reset the ventilator, decrease the sedation with possible watching for 12-24 hours per recommendation for anesthesia and then see how it is and go from there. JOB# [id number]
[2017-06-01] MEDS: Meropenem 1 GM in Sodium Chloride 0.9% 100 ML IV SCH ×3 (04:53→22:16)
[2017-06-01] MEDS: INSULIN ASPART SLIDING SCALE 100 UNITS/ML UNIT SUBQ SCH ×5 (06:36→21:45)
[2017-06-01 07:00] LABS: ALB/GLOB RATIO 0.8 (1.0-1.8); ANION GAP 12.6 (7.0-16.0); BILIRUBIN,TOTAL 0.4 mg/dL (0.3-1.0); CALCIUM SERUM 8.4 mg/dL (8.6-10.3); CARBON DIOXIDE 19.7 mEq/L (21.0-31.0); CREATININE - SERUM 1.2 mg/dL (0.6-1.2); MAGNESIUM 1.6 mg/dL (1.9-2.7); PHOSPHOROUS 4.1 mg/dL (2.5-5.0); POTASSIUM SERUM 4.3 mEq/L (3.5-5.1)
[2017-06-01] MEDS: Budesonide 0.5 Mg/2 mL Ud HHN SCH ×2 (07:01→19:27)
[2017-06-01 07:09] LABS: HEMATOCRIT 28.3 % (35.0-45.0); HEMOGLOBIN 9.8 gm/dL (11.7-16.1); MEAN CORPUSCULAR HEMOGLOBIN 31.8 pg (27.0-31.0); MEAN CORPUSCULAR HGB CONC 34.5 pg (28.0-36.0); MEAN PLATELET VOLUME 8.4 fl; PLATELET COUNT 288 Th/cmm (150-400); RED BLOOD COUNT 3.08 Mil/cmm (3.80-5.20); RED CELL DISTRIBUTION WIDTH 14.9 % (11.5-20.0)
[2017-06-01] MEDS ORDERED: INSULIN ASPART, RECOMBINANT 100 UNITS/ML SUBQ ONE (07:25)
[2017-06-01 07:29] LABS: WHITE BLOOD COUNT 19.8 Th/cmm (4.8-10.8)
[2017-06-01] MEDS: Morphine Sulfate 2 mg/mL 1mL Syr IVP PRN ×4 (08:15→21:13)
[2017-06-01 08:53] LABS: ABG SOURCE Arterial; ALLEN TEST PASS; BE(B) -5.6 mEq/L (-3.0-3.0); HCO3 20.6 mEq/L (20.0-26.0); MECH RATE 6; MECH VT 450; pH 7.35 (7.35-7.45)
[2017-06-01 08:54] LABS: CRITICAL VALUES REPORTED BY PW; FIO2 30; PS 15
[2017-06-01] MEDS ORDERED: Mag Sulfate 2gm/50mL Premix 2 GM/50 ML BAG IV ONE (09:00)
[2017-06-01 09:17] LABS: BAND NEUTROPHILE 3 % (0-10); NEUTROPHILS 88 % (40-80); PLATELET ESTIMATE ADEQUATE (NORMAL); PLATELET MORPHOLOGY NORMAL (NORMAL); TOTAL CELLS COUNTED 100
[2017-06-01] MEDS: Linezolid 600mg/300mL 600 MG/300 ML BAG IV SCH ×2 (09:39→22:17)
[2017-06-01] MEDS: Chlorhexidine Gluconate 0.12% 15mL Mouthwash MM SCH (09:45)
--- NOTE | 2017-06-01 09:51 | Diagnostic Imaging Report ---
Portable chest x-ray HISTORY: Shortness of breath Compared to prior exam of May 31, 2017, the heart size is normal. No focal prominent processes. An endotracheal tube tip is approximately 2.0 cm above the isaak. A right-sided vascular catheter tip is at the junction of the superior vena cava and right atrium. IMPRESSION: 1. No focal pulmonary processes
--- NOTE | 2017-06-01 10:05 | Diagnostic Imaging Report ---
Portable chest x-ray HISTORY: Shortness of breath Compared with a prior exam of May 30, 2017, an endotracheal tube has been inserted. The tip is approximately 2.0 cm above the isaak. Heart size is normal. No acute focal bony processes. Right-sided vascular catheter tip appears to be in the upper region of the right atrium near the junction with the superior vena cava. Multiple old left for fractures are seen. IMPRESSION: 1. New endotracheal tube placement as noted above 2. No focal pulmonary processes
--- NOTE | 2017-06-01 13:21 | General Progress Note ---
Subjective - Review of Systems Service Date: 06/01/17 Events since last encounter: doing well, labs ok minimal SANCHEZ drainage Objective - Results Result Diagrams: 06/01/17 06:30 06/01/17 06:30 Recent Labs: Laboratory Last Values WBC 19.8 Th/cmm (4.8-10.8) H D 06/01/17 06:30 RBC 3.08 Mil/cmm (3.80-5.20) L 06/01/17 06:30 Hgb 9.8 gm/dL (11.7-16.1) L 06/01/17 06:30 Hct 28.3 % (35.0-45.0) L 06/01/17 06:30 MCV 92.0 fl (81-100) 06/01/17 06:30 MCH 31.8 pg (27.0-31.0) H 06/01/17 06:30 MCHC Differential 34.5 pg (28.0-36.0) 06/01/17 06:30 RDW 14.9 % (11.5-20.0) 06/01/17 06:30 Plt Count 288 Th/cmm (150-400) 06/01/17 06:30 MPV 8.4 fl 06/01/17 06:30 Neutrophils % 60.5 % (40.0-80.0) 05/31/17 05:25 Band Neutrophils % 3 % (0-10) 06/01/17 06:30 Lymphocytes % 26.0 % (20.0-50.0) 05/31/17 05:25 Monocytes % 10.8 % (2.0-10.0) H 05/31/17 05:25 Eosinophils % 2.1 % (0.0-5.0) 05/31/17 05:25 Basophils % 0.6 % (0.0-2.0) 05/31/17 05:25 Neutrophils (Manual) 88 % (40-80) H 06/01/17 06:30 Lymphocytes 4 % (20-50) L 06/01/17 06:30 Monocytes 5 % (2-10) 06/01/17 06:30 Platelet Estimate ADEQUATE (NORMAL) 06/01/17 06:30 Platelet Morphology NORMAL (NORMAL) 06/01/17 06:30 RBC Morph Micro Appear NORMAL (NORMAL) 06/01/17 06:30 PT 11.0 SECONDS (9.5-11.5) 05/31/17 05:25 INR 1.06 (0.5-1.4) 05/31/17 05:25 Specimen Source Arterial 06/01/17 08:44 Sample Site Left Radial 06/01/17 08:44 pH 7.35 (7.35-7.45) 06/01/17 08:44 pCO2 35.0 mmHg (35.0-45.0) 06/01/17 08:44 pO2 144.0 mmHg (80.0-100.0) H 06/01/17 08:44 HCO3 20.6 mEq/L (20.0-26.0) 06/01/17 08:44 Base Excess -5.6 mEq/L (-3.0-3.0) L 06/01/17 08:44 O2 Saturation 99.0 % (92.0-100.0) 06/01/17 08:44 Luther Test PASS 06/01/17 08:44 Vent Rate 6 06/01/17 08:44 Inspired O2 30 06/01/17 08:44 Tidal Volume 450 06/01/17 08:44 PEEP 5 06/01/17 08:44 Pressure (ins/psv/peep) 15 06/01/17 08:44 Critical Value PW 06/01/17 08:44 Sodium 135 mEq/L (136-145) L 06/01/17 06:30 Potassium 4.3 mEq/L (3.5-5.1) 06/01/17 06:30 Chloride 107 mEq/L (98-107) 06/01/17 06:30 Carbon Dioxide 19.7 mEq/L (21.0-31.0) L 06/01/17 06:30 Anion Gap 12.6 (7.0-16.0) 06/01/17 06:30 BUN 30 mg/dL (7-25) H 06/01/17 06:30 Creatinine 1.2 mg/dL (0.6-1.2) 06/01/17 06:30 Est GFR ( Amer) 57.3 ml/min (>90) 06/01/17 06:30 Est GFR (Non-Af Amer) 47.3 ml/min 06/01/17 06:30 BUN/Creatinine Ratio 25.0 06/01/17 06:30 Glucose 546 mg/dL (70-105) H* 06/01/17 06:30 POC Glucose 474 MG/DL (70 - 105) H* 06/01/17 11:52 Hemoglobin A1c % 6.5 % (4.0-6.0) H 05/30/17 06:16 Whole Bld Lactic Acid 1.25 mmol/L (0.60-1.99) 05/28/17 16:22 Calcium 8.4 mg/dL (8.6-10.3) L 06/01/17 06:30 Phosphorus 4.1 mg/dL (2.5-5.0) 06/01/17 06:30 Magnesium 1.6 mg/dL (1.9-2.7) L 06/01/17 06:30 Total Bilirubin 0.4 mg/dL (0.3-1.0) 06/01/17 06:30 AST 43 U/L (13-39) H 06/01/17 06:30 ALT 254 U/L (7-52) H 06/01/17 06:30 Alkaline Phosphatase 379 U/L (34-104) H 06/01/17 06:30 Troponin I 0.01 ng/mL (0.01-0.05) 05/28/17 16:22 Total Protein 5.8 gm/dL (6.0-8.3) L 06/01/17 06:30 Albumin 2.6 gm/dL (3.7-5.3) L 06/01/17 06:30 Globulin 3.2 gm/dL 06/01/17 06:30 Albumin/Globulin Ratio 0.8 (1.0-1.8) L 06/01/17 06:30 Prealbumin 18 mg/dL (10-36) 05/31/17 05:25 Triglycerides 79 mg/dL (<150) 05/31/17 05:25 Cholesterol 103 mg/dL (<200) 05/31/17 05:25 LDL Cholesterol Direct 78 mg/dL (75-193) 05/29/17 06:35 HDL Cholesterol 23 mg/dL (23-92) 05/29/17 06:35 Amylase 60 U/L (29-103) 05/28/17 16:22 Lipase 33 U/L (11-82) 05/28/17 16:22 TSH 1.14 uIU/ml (0.34-5.60) 05/29/17 06:35 Urine Source CATH 05/28/17 19:00 Urine Color YELLOW 05/28/17 19:00 Urine Clarity HAZY (CLEAR) 05/28/17 19:00 Urine pH 6.5 05/28/17 19:00 Ur Specific [place] 1.015 (1.005-1.030) 05/28/17 19:00 Urine Protein TRACE mg/dL (NEGATIVE) 05/28/17 19:00 Urine Glucose (UA) NEGATIVE mg/dL (NEGATIVE) 05/28/17 19:00 Urine Ketones NEGATIVE mg/dL (NEGATIVE) 05/28/17 19:00 Urine Blood TRACE (NEGATIVE) 05/28/17 19:00 Urine Nitrate NEGATIVE (NEGATIVE) 05/28/17 19:00 Urine Bilirubin NEGATIVE (NEGATIVE) 05/28/17 19:00 Urine Urobilinogen 0.2 E.U./dL (0.2 - 1.0) 05/28/17 19:00 Ur Leukocyte Esterase SMALL (NEGATIVE) H 05/28/17 19:00 Urine RBC 2-5 /hpf (0-5) 05/28/17 19:00 Urine WBC 50-100 /hpf (0-5) H 05/28/17 19:00 Ur Epithelial Cells FEW /lpf (FEW) 05/28/17 19:00 Urine Bacteria 1+ /hpf (NONE SEEN) H 05/28/17 19:00 Urine Mucus FEW /lpf (FEW) 05/28/17 19:00 Blood Type O POSITIVE 05/30/17 15:29 Antibody Screen NEGATIVE 05/30/17 15:29 - Physical Exam Vitals and I&O: Vital Signs Temp 98.7 F 06/01/17 04:00 Pulse 122 06/01/17 11:13 Resp 23 06/01/17 07:00 BP 119/71 06/01/17 07:00 Pulse Ox 100 06/01/17 11:13 Intake & Output 05/31/17 06/01/17 06/01/17 18:59 06:59 18:59 Intake Total 2350 1050 400 Output Total 380 Balance 2350 670 400 Weight (lbs) 66.678 kg 65.771 kg Intake: Intake, IV Amount 2300 500 400 Colistimethate 150 mg In 100 100 Sodium Chloride 0.9% 100 ml @ 100 mls/hr IV Q12HR [facility] Rx#:[id number] Linezolid 600mg/300mL 600 300 300 mg In 300 ml @ 300 mls/ hr IV Q12HR [facility] Rx#: [id number] Meropenem 1 gm In Sodium 100 100 Chloride 0.9% 100 ml @ 100 mls/hr IV Q8HR [facility] Rx #:[id number] Multivitamin Inj 10 ml In 1200 Dextrose 70% 490 ml In Amino Acids 10% 500 ml In Intralipids 20% 200 ml @ 50 mls/hr IV .Q24H [facility] Rx#:[id number] Sodium Chloride 0.9% 1, 1000 000 ml @ 50 mls/hr IV . Q20H [facility] Rx#:[id number] TPN/PPN 50 550 Output: Drainage 80 Left Lower Abdomen 80 Urine 300 Stool 0 Other: # Voids 2 2 # Bowel Movements 0 Active Medications: Current Medications Albuterol/Ipratropium (Duoneb Neb) 3 ml HHN Q4HRT [facility] Stop: 07/30/17 18:59 Last Admin: 06/01/17 11:12 Dose: 3 ml Budesonide (Pulmicort) 0.5 mg HHN BIDRT [facility] Stop: 07/30/17 18:59 Last Admin: 06/01/17 07:01 Dose: 0.5 mg Chlorhexidine Gluconate (Peridex) 15 ml MM 0800,2000 [facility] Stop: 07/30/17 19:59 Last Admin: 06/01/17 09:45 Dose: 15 ml Clonidine HCl (Catapres) 0.2 mg PO DAILY [facility] Stop: 07/28/17 08:59 Last Admin: 06/01/17 09:45 Dose: Not Given Diltiazem HCl (Cardizem) 20 mg IVP Q3H PRN PRN Reason: HR => 120 bpm Stop: 07/30/17 21:14 Last Admin: 06/01/17 01:08 Dose: 20 mg Multivitamins/Minerals 10 ml/Dextrose/ Amino Acids/Electrolytes/ Fat Emulsion Intravenous 1,200 mls @ 50 mls/hr IV .Q24H [facility] Stop: 07/29/17 14:59 Last Admin: 05/31/17 20:39 Dose: 50 mls/hr Linezolid (Zyvox) 600 mg in 300 mls @ 300 mls/hr IV Q12HR [facility] Stop: 07/30/17 20:59 Last Infusion: 06/01/17 12:14 Dose: Infused Meropenem 1 gm/ Sodium (Chloride) 100 mls @ 100 mls/hr IV Q8HR [facility] Stop: 07/30/17 15:59 Last Admin: 06/01/17 04:53 Dose: 100 mls/hr Colistimethate Sodium 150 mg/ (Sodium Chloride) 100 mls @ 100 mls/hr IV Q12HR [facility] Stop: 07/30/17 20:59 Last Infusion: 06/01/17 12:14 Dose: Infused Sodium Chloride (Nacl 0.9%) 1,000 mls @ 125 mls/hr IV .Q8H [facility] Stop: 07/31/17 07:29 Insulin Aspart (Novolog Insulin Sliding Scale) 0 units SUBQ ACHS [facility] PRN Reason: Protocol Stop: 07/31/17 07:29 Last Admin: 06/01/17 11:57 Dose: 17 units Lorazepam (Ativan) 1 mg IVP Q6HR PRN; Protocol PRN Reason: Anxiety Stop: 07/31/17 07:30 Miscellaneous (Tpn Per Pharmacy) 1 ea MC DAILY [facility] Stop: 07/28/17 08:59 Morphine Sulfate (Morphine) 2 mg IVP Q4HR PRN PRN Reason: Abdominal Pain Stop: 07/30/17 14:36 Last Admin: 06/01/17 11:44 Dose: 2 mg Morphine Sulfate (Morphine) 2 mg IV Q3HR PRN PRN Reason: Severe Pain Stop: 07/30/17 17:08 Last Admin: 06/01/17 04:53 Dose: 2 mg Mupirocin (Bactroban Oint) 1 appl NS BID [facility] Stop: 06/04/17 17:01 Last Admin: 06/01/17 09:00 Dose: 1 appl Ondansetron HCl (Zofran Odt) 4 mg PO Q6HR PRN PRN Reason: Nausea Stop: 07/27/17 20:50 Last Admin: 05/29/17 05:56 Dose: 4 mg Oxycodone/Acetaminophen (Percocet 5/325mg Oral Tab) 1 tab PO QID PRN PRN Reason: Pain (Moderate) Stop: 07/27/17 20:50 Last Admin: 05/30/17 22:52 Dose: 1 tab Pantoprazole Sodium (Protonix) 40 mg IVP BID [facility] Stop: 07/30/17 16:59 Last Admin: 06/01/17 09:00 Dose: 40 mg Zolpidem Tartrate (Ambien) 5 mg PO HS PRN PRN Reason: Insomnia Stop: 07/27/17 20:50 Last Admin: 05/30/17 23:20 Dose: 5 mg General: No acute distress HEENT: Atraumatic Cardiovascular: Regular rate, Normal S1, Normal S2 Abdomen: Bowel sounds - Procedures Procedures: Procedures Procedure Code Date BYPASS STOMACH TO JEJUNUM, OPEN APPROACH [id number] 05/28/17 DRAINAGE OF PERITONEAL CAVITY WITH DRAIN DEV, OPEN APPROACH [id number] 01/25/17 FUSION OF STOMACH AND BOWEL 65438 05/28/17 INSERT INFUSION DEV IN R INT JUGULAR VEIN, PERC [id number] 01/25/17 INSERTION OF INFUSION DEVICE INTO R ATRIUM, PERC APPROACH [id number] 01/25/17 INSPECTION OF GASTROINTESTINAL TRACT, OPEN APPROACH [id number] 01/25/17 REMOVAL OF GALLBLADDER 87808 01/25/17 REOPENING OF ABDOMEN 72613 01/25/17 REPAIR STOMACH, OPEN APPROACH [id number] 01/25/17 RESECTION OF GALLBLADDER, OPEN APPROACH [id number] 01/25/17 RESPIRATORY VENTILATION, 24-96 CONSECUTIVE HOURS [id number] 05/28/17 RESPIRATORY VENTILATION, LESS THAN 24 CONSECUTIVE HOURS [id number] 01/25/17 STOMACH SURGERY PROCEDURE 05083 01/25/17 VENT MGMT INPAT INIT DAY 38510 01/25/17 Assessment/Plan - Problem List Patient Problems: All Active Problems H/O diabetes mellitus (Acute) Z86.39 H/O drug abuse (Acute) Z87.898 H/O: HTN (hypertension) (Acute) Z86.79 POSTCHOLECYSTECTOMY (Acute) UTI (urinary tract infection) (Acute) closeure og gastric perf (Acute) cplacement of new gj (Acute) h/o dementia (Acute) lysisi of adhesions (Acute) r/o sepsis (Acute) s/p surgery (Acute) septic shock (Acute) tachycardia (Acute) Nutritional Asmnt/Malnutr-PDOC - Dietary Evaluation Malnutrition Findings (Please click <Entered> for more info): Nutritional Asmnt/Malnutrition Start: 05/30/17 15: 01 Text: Status: Complete Freq: Document 05/30/17 15:01 CHLOE (Rec: 05/30/17 15:47 [email or web address]) Nutritional Asmnt/Malnutrition Patient General Information Nutritional Screening High Risk Screening Diagnosis Abd pain, gastrocutaneous fistula, UTI, leukocytosis ( improved) Pertinent Medical Hx/Surgical Hx HTN, DM, cholecystectomy past January 2017 Subjective Information 71 year old female from SNF. Upper GI series today, RN stated possible surgeries pending. Pt was alert and pleasant, appeared anxious, aware of medical condition and TPN/nutrition plan of care. RD explained TPN again, pt has no further questions. Pt reported she has been on TPN since January 2017. Found SNF TPN order in transfer chart, noted under "dosing weight: 134.4lb," pt confirmed wt 130lb measured this month. Questionabled EMR weight, unable to obtain CBW due to bedscale not calibrated. Unable to compelte physical assessment due to heavy blankets. Pt report usual BM pattern once every 2-3 days, given laxative at SNF to promote BM every day. Current Diet Order/ Nutrition Support D25% AA4.25% at 40ml/hr with IL20% 200ml, providing 1359kcal, 40g protein Pertinent Medications Novolog, TPN, Morphine, Multivitamins, Zofran, Protonix, Nacl 0.9% Pertinent Labs 05/29: triglycerides 89 WNL 05/30: BUN 29H (improving), creatinine WNL, glucose 197H, total bilirubin WNL, A1c 6.5H Nutritional Hx/Data Height 1.73 m Height (Calculated Centimeters) 172.7 Current Weight (lbs) 66.678 kg Weight (Calculated Kilograms) 66.7 Weight (Calculated Grams) 98148.1 Usual body Weight (lbs) 130 [place] Body Weight 154 Weight Status Approriate GI Symptoms GI Symptoms Vomitting Cultural/Ethnic/Spiritism Belief [facility]: Dextrose 288gm, AA96gm, IL 18g, 2010ml, providing 1525kcal. Skin Integrity/Comment: Asad Lui RN assessment: abdomen rash/fistula, otherwise skin intact. Estimated Nutritional Goals Calories/Kcals/Kg UBW 130lb/59.1kg Kcals Calculated 1478-1773kcal (25-30kcal/kg) Protein Calculated 59-83g (1-1.4g/kg) Fluid: ml Per MD Nutritional Problem 1. 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 Recommend TPN D19% AA5.5% at 50ml/hr with IL20% 250ml, providing 1539kcal, 66g protein. Dx DM, 50% of total kcal from dextrose. Carb load 2.6mg/kg/min (using SNF weight 134.4lb/61.1kg). Pt has been on TPN since January 2017. 2. Obtain CBW, bedscale inproperly calibrated during visit. Dosing weight 134.4lb noted under [facility] TPN order. Pt stated UBW 130lb. Expected Outcomes/Goals Expected Outcomes/Goals 1. Pt to meet 100% of estimated nutritional needs on TPN with tolerance.
[2017-06-01] MEDS: TPN 10%-70% CUSTOM IV SCH (15:23)
--- NOTE | 2017-06-01 15:58 | General Progress Note ---
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 Subjective: s/p surgery Objective - Results Result Diagrams: 06/01/17 06:30 06/01/17 06:30 Recent Labs: Laboratory Last Values WBC 19.8 Th/cmm (4.8-10.8) H D 06/01/17 06:30 RBC 3.08 Mil/cmm (3.80-5.20) L 06/01/17 06:30 Hgb 9.8 gm/dL (11.7-16.1) L 06/01/17 06:30 Hct 28.3 % (35.0-45.0) L 06/01/17 06:30 MCV 92.0 fl (81-100) 06/01/17 06:30 MCH 31.8 pg (27.0-31.0) H 06/01/17 06:30 MCHC Differential 34.5 pg (28.0-36.0) 06/01/17 06:30 RDW 14.9 % (11.5-20.0) 06/01/17 06:30 Plt Count 288 Th/cmm (150-400) 06/01/17 06:30 MPV 8.4 fl 06/01/17 06:30 Neutrophils % 60.5 % (40.0-80.0) 05/31/17 05:25 Band Neutrophils % 3 % (0-10) 06/01/17 06:30 Lymphocytes % 26.0 % (20.0-50.0) 05/31/17 05:25 Monocytes % 10.8 % (2.0-10.0) H 05/31/17 05:25 Eosinophils % 2.1 % (0.0-5.0) 05/31/17 05:25 Basophils % 0.6 % (0.0-2.0) 05/31/17 05:25 Neutrophils (Manual) 88 % (40-80) H 06/01/17 06:30 Lymphocytes 4 % (20-50) L 06/01/17 06:30 Monocytes 5 % (2-10) 06/01/17 06:30 Platelet Estimate ADEQUATE (NORMAL) 06/01/17 06:30 Platelet Morphology NORMAL (NORMAL) 06/01/17 06:30 RBC Morph Micro Appear NORMAL (NORMAL) 06/01/17 06:30 PT 11.0 SECONDS (9.5-11.5) 05/31/17 05:25 INR 1.06 (0.5-1.4) 05/31/17 05:25 Specimen Source Arterial 06/01/17 08:44 Sample Site Left Radial 06/01/17 08:44 pH 7.35 (7.35-7.45) 06/01/17 08:44 pCO2 35.0 mmHg (35.0-45.0) 06/01/17 08:44 pO2 144.0 mmHg (80.0-100.0) H 06/01/17 08:44 HCO3 20.6 mEq/L (20.0-26.0) 06/01/17 08:44 Base Excess -5.6 mEq/L (-3.0-3.0) L 06/01/17 08:44 O2 Saturation 99.0 % (92.0-100.0) 06/01/17 08:44 Luther Test PASS 06/01/17 08:44 Vent Rate 6 06/01/17 08:44 Inspired O2 30 06/01/17 08:44 Tidal Volume 450 06/01/17 08:44 PEEP 5 06/01/17 08:44 Pressure (ins/psv/peep) 15 06/01/17 08:44 Critical Value PW 06/01/17 08:44 Sodium 135 mEq/L (136-145) L 06/01/17 06:30 Potassium 4.3 mEq/L (3.5-5.1) 06/01/17 06:30 Chloride 107 mEq/L (98-107) 06/01/17 06:30 Carbon Dioxide 19.7 mEq/L (21.0-31.0) L 06/01/17 06:30 Anion Gap 12.6 (7.0-16.0) 06/01/17 06:30 BUN 30 mg/dL (7-25) H 06/01/17 06:30 Creatinine 1.2 mg/dL (0.6-1.2) 06/01/17 06:30 Est GFR ( Amer) 57.3 ml/min (>90) 06/01/17 06:30 Est GFR (Non-Af Amer) 47.3 ml/min 06/01/17 06:30 BUN/Creatinine Ratio 25.0 07/26/17 06:30 Glucose 571 mg/dL (70-105) H* 06/01/17 12:07 POC Glucose 474 MG/DL (70 - 105) H* 06/01/17 11:52 Hemoglobin A1c % 6.5 % (4.0-6.0) H 05/30/17 06:16 Whole Bld Lactic Acid 1.25 mmol/L (0.60-1.99) 05/28/17 16:22 Calcium 8.4 mg/dL (8.6-10.3) L 06/01/17 06:30 Phosphorus 4.1 mg/dL (2.5-5.0) 06/01/17 06:30 Magnesium 1.6 mg/dL (1.9-2.7) L 06/01/17 06:30 Total Bilirubin 0.4 mg/dL (0.3-1.0) 06/01/17 06:30 AST 43 U/L (13-39) H 06/01/17 06:30 ALT 254 U/L (7-52) H 06/01/17 06:30 Alkaline Phosphatase 379 U/L (34-104) H 06/01/17 06:30 Troponin I 0.01 ng/mL (0.01-0.05) 05/28/17 16:22 Total Protein 5.8 gm/dL (6.0-8.3) L 06/01/17 06:30 Albumin 2.6 gm/dL (3.7-5.3) L 06/01/17 06:30 Globulin 3.2 gm/dL 06/01/17 06:30 Albumin/Globulin Ratio 0.8 (1.0-1.8) L 06/01/17 06:30 Prealbumin 18 mg/dL (10-36) 05/31/17 05:25 Triglycerides 79 mg/dL (<150) 05/31/17 05:25 Cholesterol 103 mg/dL (<200) 05/31/17 05:25 LDL Cholesterol Direct 78 mg/dL (75-193) 05/29/17 06:35 HDL Cholesterol 23 mg/dL (23-92) 05/29/17 06:35 Amylase 60 U/L (29-103) 05/28/17 16:22 Lipase 33 U/L (11-82) 05/28/17 16:22 TSH 1.14 uIU/ml (0.34-5.60) 05/29/17 06:35 Urine Source CATH 05/28/17 19:00 Urine Color YELLOW 05/28/17 19:00 Urine Clarity HAZY (CLEAR) 05/28/17 19:00 Urine pH 6.5 05/28/17 19:00 Ur Specific [place] 1.015 (1.005-1.030) 05/28/17 19:00 Urine Protein TRACE mg/dL (NEGATIVE) 05/28/17 19:00 Urine Glucose (UA) NEGATIVE mg/dL (NEGATIVE) 05/28/17 19:00 Urine Ketones NEGATIVE mg/dL (NEGATIVE) 05/28/17 19:00 Urine Blood TRACE (NEGATIVE) 05/28/17 19:00 Urine Nitrate NEGATIVE (NEGATIVE) 05/28/17 19:00 Urine Bilirubin NEGATIVE (NEGATIVE) 05/28/17 19:00 Urine Urobilinogen 0.2 E.U./dL (0.2 - 1.0) 05/28/17 19:00 Ur Leukocyte Esterase SMALL (NEGATIVE) H 05/28/17 19:00 Urine RBC 2-5 /hpf (0-5) 05/28/17 19:00 Urine WBC 50-100 /hpf (0-5) H 05/28/17 19:00 Ur Epithelial Cells FEW /lpf (FEW) 05/28/17 19:00 Urine Bacteria 1+ /hpf (NONE SEEN) H 05/28/17 19:00 Urine Mucus FEW /lpf (FEW) 05/28/17 19:00 Blood Type O POSITIVE 05/30/17 15:29 Antibody Screen NEGATIVE 05/30/17 15:29 - Physical Exam Vitals and I&O: Vital Signs Temp 98.4 F 06/01/17 12:00 Pulse 118 06/01/17 15:03 Resp 16 06/01/17 15:03 BP 124/67 06/01/17 15:00 Pulse Ox 99 06/01/17 15:03 Intake & Output 05/31/17 06/01/17 06/01/17 18:59 06:59 18:59 Intake Total 2350 1150 1336.667 Output Total 380 Balance 2350 770 1336.667 Weight (lbs) 66.678 kg 65.771 kg Intake: Intake, IV Amount 2300 600 1336.667 Colistimethate 150 mg In 100 100 Sodium Chloride 0.9% 100 ml @ 100 mls/hr IV Q12HR [facility] Rx#:[id number] Linezolid 600mg/300mL 600 300 300 mg In 300 ml @ 300 mls/ hr IV Q12HR [facility] Rx#: [id number] Meropenem 1 gm In Sodium 100 200 Chloride 0.9% 100 ml @ 100 mls/hr IV Q8HR [facility] Rx #:[id number] Multivitamin Inj 10 ml In 1200 936.667 Dextrose 70% 490 ml In Amino Acids 10% 500 ml In Intralipids 20% 200 ml @ 50 mls/hr IV .Q24H [facility] Rx#:[id number] Sodium Chloride 0.9% 1, 1000 000 ml @ 50 mls/hr IV . Q20H [facility] Rx#:[id number] TPN/PPN 50 550 Output: Drainage 80 Left Lower Abdomen 80 Urine 300 Stool 0 Other: # Voids 2 2 # Bowel Movements 0 Active Medications: Current Medications Albuterol/Ipratropium (Duoneb Neb) 3 ml HHN Q4HRT [facility] Stop: 07/30/17 18:59 Last Admin: 06/01/17 15:03 Dose: 3 ml Budesonide (Pulmicort) 0.5 mg HHN BIDRT [facility] Stop: 07/30/17 18:59 Last Admin: 06/01/17 07:01 Dose: 0.5 mg Chlorhexidine Gluconate (Peridex) 15 ml MM 0800,2000 [facility] Stop: 07/30/17 19:59 Last Admin: 06/01/17 09:45 Dose: 15 ml Clonidine HCl (Catapres) 0.2 mg PO DAILY [facility] Stop: 07/28/17 08:59 Last Admin: 06/01/17 09:45 Dose: Not Given Diltiazem HCl (Cardizem) 20 mg IVP Q3H PRN PRN Reason: HR => 120 bpm Stop: 07/30/17 21:14 Last Admin: 06/01/17 01:08 Dose: 20 mg Multivitamins/Minerals 10 ml/Dextrose/ Amino Acids/Electrolytes/ Fat Emulsion Intravenous 1,200 mls @ 50 mls/hr IV .Q24H [facility] Stop: 07/29/17 14:59 Last Admin: 06/01/17 15:23 Dose: 50 mls/hr Linezolid (Zyvox) 600 mg in 300 mls @ 300 mls/hr IV Q12HR [facility] Stop: 07/30/17 20:59 Last Infusion: 06/01/17 12:14 Dose: Infused Meropenem 1 gm/ Sodium (Chloride) 100 mls @ 100 mls/hr IV Q8HR [facility] Stop: 07/30/17 15:59 Last Admin: 06/01/17 15:21 Dose: 100 mls/hr Colistimethate Sodium 150 mg/ (Sodium Chloride) 100 mls @ 100 mls/hr IV Q12HR [facility] Stop: 07/30/17 20:59 Last Infusion: 06/01/17 12:14 Dose: Infused Sodium Chloride (Nacl 0.9%) 1,000 mls @ 125 mls/hr IV .Q8H [facility] Stop: 07/31/17 07:29 Insulin Aspart (Novolog Insulin Sliding Scale) 0 units SUBQ ACHS [facility] PRN Reason: Protocol Stop: 07/31/17 07:29 Last Admin: 06/01/17 11:57 Dose: 17 units Lorazepam (Ativan) 1 mg IVP Q6HR PRN; Protocol PRN Reason: Anxiety Stop: 07/31/17 07:30 Miscellaneous (Tpn Per Pharmacy) 1 ea MC DAILY [facility] Stop: 07/28/17 08:59 Morphine Sulfate (Morphine) 2 mg IVP Q4HR PRN PRN Reason: Abdominal Pain Stop: 07/30/17 14:36 Last Admin: 06/01/17 11:44 Dose: 2 mg Morphine Sulfate (Morphine) 2 mg IV Q3HR PRN PRN Reason: Severe Pain Stop: 07/30/17 17:08 Last Admin: 06/01/17 04:53 Dose: 2 mg Mupirocin (Bactroban Oint) 1 appl NS BID [facility] Stop: 06/04/17 17:01 Last Admin: 06/01/17 09:00 Dose: 1 appl Ondansetron HCl (Zofran Odt) 4 mg PO Q6HR PRN PRN Reason: Nausea Stop: 07/27/17 20:50 Last Admin: 05/29/17 05:56 Dose: 4 mg Oxycodone/Acetaminophen (Percocet 5/325mg Oral Tab) 1 tab PO QID PRN PRN Reason: Pain (Moderate) Stop: 07/27/17 20:50 Last Admin: 05/30/17 22:52 Dose: 1 tab Pantoprazole Sodium (Protonix) 40 mg IVP BID [facility] Stop: 07/30/17 16:59 Last Admin: 06/01/17 09:00 Dose: 40 mg Zolpidem Tartrate (Ambien) 5 mg PO HS PRN PRN Reason: Insomnia Stop: 07/27/17 20:50 Last Admin: 05/30/17 23:20 Dose: 5 mg General: No acute distress HEENT: Atraumatic Cardiovascular: Regular rate, Normal S1, Normal S2 Abdomen: Bowel sounds - Procedures Procedures: Procedures Procedure Code Date BYPASS STOMACH TO JEJUNUM, OPEN APPROACH [id number] 05/28/17 DRAINAGE OF PERITONEAL CAVITY WITH DRAIN DEV, OPEN APPROACH [id number] 01/25/17 FUSION OF STOMACH AND BOWEL 12187 05/28/17 INSERT INFUSION DEV IN R INT JUGULAR VEIN, PERC [id number] 01/25/17 INSERTION OF INFUSION DEVICE INTO R ATRIUM, PERC APPROACH [id number] 01/25/17 INSPECTION OF GASTROINTESTINAL TRACT, OPEN APPROACH [id number] 01/25/17 REMOVAL OF GALLBLADDER 36375 01/25/17 REOPENING OF ABDOMEN 91302 01/25/17 REPAIR STOMACH, OPEN APPROACH [id number] 01/25/17 RESECTION OF GALLBLADDER, OPEN APPROACH [id number] 01/25/17 RESPIRATORY VENTILATION, 24-96 CONSECUTIVE HOURS [id number] 05/28/17 RESPIRATORY VENTILATION, LESS THAN 24 CONSECUTIVE HOURS [id number] 01/25/17 STOMACH SURGERY PROCEDURE 95908 01/25/17 VENT MGMT INPAT INIT DAY 90126 01/25/17 Assessment/Plan - Problem List Patient Problems: All Active Problems H/O diabetes mellitus (Acute) Z86.39 H/O drug abuse (Acute) Z87.898 H/O: HTN (hypertension) (Acute) Z86.79 POSTCHOLECYSTECTOMY (Acute) UTI (urinary tract infection) (Acute) closeure og gastric perf (Acute) cplacement of new gj (Acute) h/o dementia (Acute) lysisi of adhesions (Acute) r/o sepsis (Acute) s/p surgery (Acute) septic shock (Acute) tachycardia (Acute) - Assessment Assessment: epigastric pain gastritis ostomy hole with discharge s/p cholecystectomy - Plan Plan: as per order sheet Nutritional Asmnt/Malnutr-PDOC - Dietary Evaluation Malnutrition Findings (Please click <Entered> for more info): Nutritional Asmnt/Malnutrition Start: 05/30/17 15: 01 Text: Status: Complete Freq: Document 05/30/17 15:01 GSUN (Rec: 05/30/17 15:47 [email or web address] [id number]) Nutritional Asmnt/Malnutrition Patient General Information Nutritional Screening High Risk Screening Diagnosis Abd pain, gastrocutaneous fistula, UTI, leukocytosis ( improved) Pertinent Medical Hx/Surgical Hx HTN, DM, cholecystectomy past January 2017 Subjective Information 71 year old female from SNF. Upper GI series today, RN stated possible surgeries pending. Pt was alert and pleasant, appeared anxious, aware of medical condition and TPN/nutrition plan of care. RD explained TPN again, pt has no further questions. Pt reported she has been on TPN since January 2017. Found SNF TPN order in transfer chart, noted under "dosing weight: 134.4lb," pt confirmed wt 130lb measured this month. Questionabled EMR weight, unable to obtain CBW due to bedscale not calibrated. Unable to compelte physical assessment due to heavy blankets. Pt report usual BM pattern once every 2-3 days, given laxative at SNF to promote BM every day. Current Diet Order/ Nutrition Support D25% AA4.25% at 40ml/hr with IL20% 200ml, providing 1359kcal, 40g protein Pertinent Medications Novolog, TPN, Morphine, Multivitamins, Zofran, Protonix, Nacl 0.9% Pertinent Labs 05/29: triglycerides 89 WNL 05/30: BUN 29H (improving), creatinine WNL, glucose 197H, total bilirubin WNL, A1c 6.5H Nutritional Hx/Data Height 1.73 m Height (Calculated Centimeters) 172.7 Current Weight (lbs) 66.678 kg Weight (Calculated Kilograms) 66.7 Weight (Calculated Grams) 17907.1 Usual body Weight (lbs) 130 [place] Body Weight 154 Weight Status Approriate GI Symptoms GI Symptoms Vomitting Cultural/Ethnic/Confucianism Belief [facility]: Dextrose 288gm, AA96gm, IL 18g, 2010ml, providing 1525kcal. 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 Estimated Nutritional Goals Calories/Kcals/Kg UBW 130lb/59.1kg Kcals Calculated 1478-1773kcal (25-30kcal/kg) Protein Calculated 59-83g (1-1.4g/kg) Fluid: ml Per MD Nutritional Problem 1. 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 Recommend TPN D19% AA5.5% at 50ml/hr with IL20% 250ml, providing 1539kcal, 66g protein. Dx DM, 50% of total kcal from dextrose. Carb load 2.6mg/kg/min (using SNF weight 134.4lb/61.1kg). Pt has been on TPN since January 2017. 2. Obtain CBW, bedscale inproperly calibrated during visit. Dosing weight 134.4lb noted under SNF TPN order. Pt stated UBW 130lb. Expected Outcomes/Goals Expected Outcomes/Goals 1. Pt to meet 100% of estimated nutritional needs on TPN with tolerance.
--- NOTE | 2017-06-01 22:20 | Progress Notes ---
DATE: 06/01/2017 PROBLEM LIST: 1. Postoperative respiratory failure. 2. Previous history of fistulectomy with recent abdominal surgery. 3. Questionable chronic obstructive pulmonary disease. 4. History of previous abdominal cavity abscess. 5. History of possibly chronic obstructive pulmonary disease. 6. History of possibly drug abuse in the past. SYMPTOMS: Nil. The patient is awake, alert, no respiratory distress, etc. PHYSICAL EXAMINATION: VITAL SIGNS: The patient's recorded vitals: Temperature is 96, heart rate is 110-120, saturation 100% on 30%. NECK: Veins not visualized. Good bilateral carotid upstroke. CHEST: Shows diminished air entry with occasional rhonchi. HEART: Regular, slightly tachycardic. ABDOMEN: Shows wound VAC with surgical scar and otherwise unremarkable. LABORATORY DATA: White count is 19.8, hemoglobin 9.8, ABG, pO2 is 144 on SIMV of 6 with 30% of FIO2. ASSESSMENT: The patient clinically seemingly tolerating okay weaning. PLANS AND SUGGESTIONS: We will discuss with nursing staff and RT. If he is stable, weaning parameters are acceptable, may consider extubating and go from there. JOB# [id number]
--- NOTE | 2017-06-01 22:26 | Consultation ---
DATE OF CONSULTATION: 06/01/2017 PATIENT OF: Dr. Aggarwal. HISTORY AND PHYSICAL: This is a 71-year-old female patient recently discharged from [facility]. The patient at the present time had been complaining of abdominal pain. The patient had discharge from the gastrocutaneous fistula. The patient at this time is admitted. The patient had surgery for gastrocutaneous fistula due to peritonitis. Postoperatively, the patient is on ventilator, developed supraventricular tachycardia and hence Cardiology consult was requested. PAST MEDICAL HISTORY: Hypertension, diabetes mellitus type 2, insulin dependent diabetes mellitus, gastrocutaneous fistula, peritonitis. FAMILY HISTORY: Unremarkable. SOCIAL HISTORY: No history of smoking, alcohol abuse. ALLERGIES: No known allergies. PHYSICAL EXAMINATION: VITAL SIGNS: Blood pressure 110/70, pulse 140, respirations on ventilator. HEAD: Normocephalic. No lumps or bumps. EYES: Pupils equal, reactive to light. Fundi show AV nicking, sclerae white, conjunctivae pink. NECK: Carotid 2+. Normal upstroke. JVD flat. Thyroid not palpable. Lymph nodes not palpable. CHEST: Shows increased AP diameter. No kyphosis, scoliosis. LUNGS: Bilateral breath sounds. HEART: PMI fifth intercostal space lateral to midclavicular line. S1, S2. No S3, S4. Systolic murmur, grade 2/6, lower left sternal border without radiation. ABDOMEN: Soft. Liver and spleen not palpable. The patient has hypoactive bowel sounds. NEUROLOGIC: Unremarkable. EXTREMITIES: Peripheral pulses 2+. No pedal edema. CLINICAL IMPRESSION: Supraventricular tachycardia, acute respiratory failure on ventilator, hypertension, diabetes mellitus type 2, insulin dependent diabetes mellitus, peritonitis, gastrocutaneous fistula. PLAN: The patient to continue vent management. Cardizem to control the heart rate. JOB# [id number]
[2017-06-02] MEDS: Sodium Chloride 0.9% 1,000 ML IV SCH ×3 (01:36→19:59)
[2017-06-02] MEDS: Morphine Sulfate 2 mg/mL 1mL Syr IVP PRN ×5 (02:52→19:57)
[2017-06-02] MEDS: Albuterol/Ipratropium Neb 3 ML AERS HHN SCH ×6 (03:00→22:35)
[2017-06-02 05:55] LABS: ALB/GLOB RATIO 0.9 (1.0-1.8); ALKALINE PHOSPHATASE 266 U/L (34-104); ANION GAP 8.1 (7.0-16.0); BILIRUBIN,TOTAL 0.3 mg/dL (0.3-1.0); BUN - UREA NITROGEN 26 mg/dL (7-25); CALCIUM SERUM 8.4 mg/dL (8.6-10.3); CARBON DIOXIDE 22.4 mEq/L (21.0-31.0); CHLORIDE 113 mEq/L (98-107); GLUCOSE 195 mg/dL (70-105); MAGNESIUM 1.7 mg/dL (1.9-2.7); PHOSPHOROUS 2.5 mg/dL (2.5-5.0); POTASSIUM SERUM 3.5 mEq/L (3.5-5.1); SGOT 19 U/L (13-39); SGPT/ALT 151 U/L (7-52); SODIUM SERUM 140 mEq/L (136-145)
[2017-06-02] MEDS: Meropenem 1 GM in Sodium Chloride 0.9% 100 ML IV SCH ×3 (06:53→20:50)
[2017-06-02] MEDS: INSULIN ASPART SLIDING SCALE 100 UNITS/ML UNIT SUBQ SCH ×4 (07:02→21:50)
[2017-06-02] MEDS: Budesonide 0.5 Mg/2 mL Ud HHN SCH ×2 (07:48→19:18)
[2017-06-02 08:07] LABS: RED BLOOD COUNT 2.36 Mil/cmm (3.80-5.20); WHITE BLOOD COUNT 15.4 Th/cmm (4.8-10.8)
[2017-06-02 08:08] LABS: HEMOGLOBIN 7.4 gm/dL (11.7-16.1)
[2017-06-02 08:09] LABS: HEMATOCRIT 21.4 % (35.0-45.0); MEAN CELL VOLUME 90.5 fl (81-100); MEAN CORPUSCULAR HEMOGLOBIN 31.1 pg (27.0-31.0); MEAN CORPUSCULAR HGB CONC 34.4 pg (28.0-36.0); MEAN PLATELET VOLUME 7.9 fl; PLATELET COUNT 217 Th/cmm (150-400)
--- NOTE | 2017-06-02 09:30 | Diagnostic Imaging Report ---
Portable chest x-ray HISTORY: Shortness of breath Allowing for portable technique in a poor inspiration, the heart size is at the upper limits of normal. Atherosclerotic calcination seen in the aorta. Compared to prior exam of June 01, 2017, endotracheal tube has been removed. A nasogastric tube remains in the region of the stomach. No focal pulmonary processes. IMPRESSION: 1. No definite focal pulmonary processes
[2017-06-02 09:47] LABS: ANISOCYTOSIS 1+; BAND NEUTROPHILE 2 % (0-10); NEUTROPHILS 82 % (40-80); PLATELET ESTIMATE ADEQUATE (NORMAL); PLATELET MORPHOLOGY NORMAL (NORMAL); TOTAL CELLS COUNTED 100
[2017-06-02 09:58] LABS: BE(B) 0.8 mEq/L (-3.0-3.0); HCO3 25.6 mEq/L (20.0-26.0); pH 7.39 (7.35-7.45)
[2017-06-02 09:59] LABS: ABG SOURCE Arterial; ALLEN TEST PASS; FIO2 28
[2017-06-02 10:00] LABS: CRITICAL VALUES REPORTED BY PW
--- NOTE | 2017-06-02 10:06 | General Progress Note ---
Subjective - Review of Systems Events since last encounter: patient doing better today Subjective: s/p surgery Objective - Results Result Diagrams: 06/02/17 07:25 06/02/17 05:22 Recent Labs: Laboratory Last Values WBC 15.4 Th/cmm (4.8-10.8) H D 06/02/17 07:25 RBC 2.36 Mil/cmm (3.80-5.20) L 06/02/17 07:25 Hgb 7.4 gm/dL (11.7-16.1) L* D 06/02/17 07:25 Hct 21.4 % (35.0-45.0) L* D 06/02/17 07:25 MCV 90.5 fl (81-100) 06/02/17 07:25 MCH 31.1 pg (27.0-31.0) H 06/02/17 07:25 MCHC Differential 34.4 pg (28.0-36.0) 06/02/17 07:25 RDW 15.0 % (11.5-20.0) 06/02/17 07:25 Plt Count 217 Th/cmm (150-400) D 06/02/17 07:25 MPV 7.9 fl 06/02/17 07:25 Neutrophils % 60.5 % (40.0-80.0) 05/31/17 05:25 Band Neutrophils % 2 % (0-10) 06/02/17 07:25 Lymphocytes % 26.0 % (20.0-50.0) 05/31/17 05:25 Monocytes % 10.8 % (2.0-10.0) H 05/31/17 05:25 Eosinophils % 2.1 % (0.0-5.0) 05/31/17 05:25 Basophils % 0.6 % (0.0-2.0) 05/31/17 05:25 Neutrophils (Manual) 82 % (40-80) H 06/02/17 07:25 Lymphocytes 10 % (20-50) L 06/02/17 07:25 Monocytes 6 % (2-10) 06/02/17 07:25 Platelet Estimate ADEQUATE (NORMAL) 06/02/17 07:25 Platelet Morphology NORMAL (NORMAL) 06/02/17 07:25 Anisocytosis 1+ 06/02/17 07:25 RBC Morph Micro Appear ABNORMAL (NORMAL) 06/02/17 07:25 PT 11.0 SECONDS (9.5-11.5) 05/31/17 05:25 INR 1.06 (0.5-1.4) 05/31/17 05:25 Specimen Source Arterial 06/02/17 09:51 Sample Site Right Radial 06/02/17 09:51 pH 7.39 (7.35-7.45) 06/02/17 09:51 pCO2 43.0 mmHg (35.0-45.0) 06/02/17 09:51 pO2 144.0 mmHg (80.0-100.0) H 06/02/17 09:51 HCO3 25.6 mEq/L (20.0-26.0) 06/02/17 09:51 Base Excess 0.8 mEq/L (-3.0-3.0) 06/02/17 09:51 O2 Saturation 99.0 % (92.0-100.0) 06/02/17 09:51 Luther Test PASS 06/02/17 09:51 Vent Rate 6 06/01/17 08:44 Inspired O2 28 06/02/17 09:51 Tidal Volume 450 06/01/17 08:44 PEEP 5 06/01/17 08:44 Pressure (ins/psv/peep) 15 06/01/17 08:44 Critical Value PW 06/02/17 09:51 Sodium 140 mEq/L (136-145) 06/02/17 05:22 Potassium 3.5 mEq/L (3.5-5.1) 06/02/17 05:22 Chloride 113 mEq/L (98-107) H 06/02/17 05:22 Carbon Dioxide 22.4 mEq/L (21.0-31.0) 06/02/17 05:22 Anion Gap 8.1 (7.0-16.0) 06/02/17 05:22 BUN 26 mg/dL (7-25) H 06/02/17 05:22 Creatinine 1.0 mg/dL (0.6-1.2) 06/02/17 05:22 Est GFR ( Amer) > 60.0 ml/min (>90) 06/02/17 05:22 Est GFR (Non-Af Amer) 58.4 ml/min 06/02/17 05:22 BUN/Creatinine Ratio 26.0 06/02/17 05:22 Glucose 195 mg/dL (70-105) H 06/02/17 05:22 POC Glucose 375 MG/DL (70 - 105) H 06/01/17 17:30 Hemoglobin A1c % 6.5 % (4.0-6.0) H 05/30/17 06:16 Whole Bld Lactic Acid 1.25 mmol/L (0.60-1.99) 05/28/17 16:22 Calcium 8.4 mg/dL (8.6-10.3) L 06/02/17 05:22 Phosphorus 2.5 mg/dL (2.5-5.0) 06/02/17 05:22 Magnesium 1.7 mg/dL (1.9-2.7) L 06/02/17 05:22 Total Bilirubin 0.3 mg/dL (0.3-1.0) 06/02/17 05:22 AST 19 U/L (13-39) 06/02/17 05:22 ALT 151 U/L (7-52) H 06/02/17 05:22 Alkaline Phosphatase 266 U/L (34-104) H 06/02/17 05:22 Troponin I 0.01 ng/mL (0.01-0.05) 05/28/17 16:22 Total Protein 5.1 gm/dL (6.0-8.3) L 06/02/17 05:22 Albumin 2.4 gm/dL (3.7-5.3) L 06/02/17 05:22 Globulin 2.7 gm/dL 06/02/17 05:22 Albumin/Globulin Ratio 0.9 (1.0-1.8) L 06/02/17 05:22 Prealbumin 18 mg/dL (10-36) 05/31/17 05:25 Triglycerides 79 mg/dL (<150) 05/31/17 05:25 Cholesterol 103 mg/dL (<200) 05/31/17 05:25 LDL Cholesterol Direct 78 mg/dL (75-193) 05/29/17 06:35 HDL Cholesterol 23 mg/dL (23-92) 05/29/17 06:35 Amylase 60 U/L (29-103) 05/28/17 16:22 Lipase 33 U/L (11-82) 05/28/17 16:22 TSH 1.14 uIU/ml (0.34-5.60) 05/29/17 06:35 Urine Source CATH 05/28/17 19:00 Urine Color YELLOW 05/28/17 19:00 Urine Clarity HAZY (CLEAR) 05/28/17 19:00 Urine pH 6.5 05/28/17 19:00 Ur Specific [place] 1.015 (1.005-1.030) 05/28/17 19:00 Urine Protein TRACE mg/dL (NEGATIVE) 05/28/17 19:00 Urine Glucose (UA) NEGATIVE mg/dL (NEGATIVE) 05/28/17 19:00 Urine Ketones NEGATIVE mg/dL (NEGATIVE) 05/28/17 19:00 Urine Blood TRACE (NEGATIVE) 05/28/17 19:00 Urine Nitrate NEGATIVE (NEGATIVE) 05/28/17 19:00 Urine Bilirubin NEGATIVE (NEGATIVE) 05/28/17 19:00 Urine Urobilinogen 0.2 E.U./dL (0.2 - 1.0) 05/28/17 19:00 Ur Leukocyte Esterase SMALL (NEGATIVE) H 05/28/17 19:00 Urine RBC 2-5 /hpf (0-5) 05/28/17 19:00 Urine WBC 50-100 /hpf (0-5) H 05/28/17 19:00 Ur Epithelial Cells FEW /lpf (FEW) 05/28/17 19:00 Urine Bacteria 1+ /hpf (NONE SEEN) H 05/28/17 19:00 Urine Mucus FEW /lpf (FEW) 05/28/17 19:00 Blood Type O POSITIVE 06/02/17 05:22 Antibody Screen NEGATIVE 06/02/17 05:22 Crossmatch See Detail 06/02/17 05:22 - Physical Exam Vitals and I&O: Vital Signs Temp 98.7 F 06/02/17 04:00 Pulse 92 06/02/17 07:51 Resp 13 06/02/17 07:51 BP 127/56 06/02/17 07:00 Pulse Ox 100 06/02/17 07:51 Intake & Output 06/01/17 06/02/17 06/02/17 18:59 06:59 18:59 Intake Total 2096.667 766.667 Output Total 1360 635 Balance 736.667 131.667 Weight (lbs) 65.771 kg 66.179 kg Intake: Intake, IV Amount 1436.667 766.667 Colistimethate 150 mg In 100 Sodium Chloride 0.9% 100 ml @ 100 mls/hr IV Q12HR [facility] Rx#:[id number] Linezolid 600mg/300mL 600 300 mg In 300 ml @ 300 mls/ hr IV Q12HR [facility] Rx#: [id number] Meropenem 1 gm In Sodium 100 100 Chloride 0.9% 100 ml @ 100 mls/hr IV Q8HR [facility] Rx #:[id number] Multivitamin Inj 10 ml In 936.667 Dextrose 70% 490 ml In Amino Acids 10% 500 ml In Intralipids 20% 200 ml @ 50 mls/hr IV .Q24H [facility] Rx#:[id number] Sodium Chloride 0.9% 1, 666.667 000 ml @ 125 mls/hr IV . Q8H [facility] Rx#:[id number] Oral 60 TPN/PPN 600 Output: Drainage 10 10 Left Lower Abdomen 10 10 Urine 1350 625 Other: # Bowel Movements 0 Active Medications: Current Medications Albuterol/Ipratropium (Duoneb Neb) 3 ml HHN Q4HRT [facility] Stop: 07/30/17 18:59 Last Admin: 06/02/17 07:48 Dose: 3 ml Budesonide (Pulmicort) 0.5 mg HHN BIDRT [facility] Stop: 07/30/17 18:59 Last Admin: 06/02/17 07:48 Dose: 0.5 mg Chlorhexidine Gluconate (Peridex) 15 ml MM 08,1999 [facility] Stop: 07/30/17 19:59 Last Admin: 06/01/17 09:45 Dose: 15 ml Clonidine HCl (Catapres) 0.2 mg PO DAILY [facility] Stop: 07/28/17 08:59 Last Admin: 06/01/17 09:45 Dose: Not Given Diltiazem HCl (Cardizem) 20 mg IVP Q3H PRN PRN Reason: HR => 120 bpm Stop: 07/30/17 21:14 Last Admin: 06/01/17 01:08 Dose: 20 mg Multivitamins/Minerals 10 ml/Dextrose/ Amino Acids/Electrolytes/ Fat Emulsion Intravenous 1,200 mls @ 50 mls/hr IV .Q24H [facility] Stop: 07/29/17 14:59 Last Admin: 06/01/17 15:23 Dose: 50 mls/hr Linezolid (Zyvox) 600 mg in 300 mls @ 300 mls/hr IV Q12HR [facility] Stop: 07/30/17 20:59 Last Admin: 06/01/17 22:17 Dose: 300 mls/hr Meropenem 1 gm/ Sodium (Chloride) 100 mls @ 100 mls/hr IV Q8HR [facility] Stop: 07/30/17 15:59 Last Admin: 06/02/17 06:53 Dose: 100 mls/hr Colistimethate Sodium 150 mg/ (Sodium Chloride) 100 mls @ 100 mls/hr IV Q12HR [facility] Stop: 07/30/17 20:59 Last Admin: 06/01/17 21:08 Dose: 100 mls/hr Sodium Chloride (Nacl 0.9%) 1,000 mls @ 125 mls/hr IV .Q8H [facility] Stop: 07/31/17 07:29 Last Admin: 06/02/17 06:56 Dose: 125 mls/hr Insulin Aspart (Novolog Insulin Sliding Scale) 0 units SUBQ ACHS [facility] PRN Reason: Protocol Stop: 07/31/17 07:29 Last Admin: 06/02/17 07:02 Dose: 4 units Lorazepam (Ativan) 1 mg IVP Q6HR PRN; Protocol PRN Reason: Anxiety Stop: 07/31/17 07:30 Miscellaneous (Tpn Per Pharmacy) 1 ea MC DAILY [facility] Stop: 07/28/17 08:59 Morphine Sulfate (Morphine) 2 mg IVP Q4HR PRN PRN Reason: Abdominal Pain Stop: 07/30/17 14:36 Last Admin: 06/02/17 06:52 Dose: 2 mg Morphine Sulfate (Morphine) 2 mg IV Q3HR PRN PRN Reason: Severe Pain Stop: 07/30/17 17:08 Last Admin: 06/01/17 04:53 Dose: 2 mg Mupirocin (Bactroban Oint) 1 appl NS BID [facility] Stop: 06/04/17 17:01 Last Admin: 06/01/17 17:40 Dose: 1 appl Ondansetron HCl (Zofran Odt) 4 mg PO Q6HR PRN PRN Reason: Nausea Stop: 07/27/17 20:50 Last Admin: 05/29/17 05:56 Dose: 4 mg Oxycodone/Acetaminophen (Percocet 5/325mg Oral Tab) 1 tab PO QID PRN PRN Reason: Pain (Moderate) Stop: 07/27/17 20:50 Last Admin: 05/30/17 22:52 Dose: 1 tab Pantoprazole Sodium (Protonix) 40 mg IVP BID [facility] Stop: 07/30/17 16:59 Last Admin: 06/01/17 09:00 Dose: 40 mg Zolpidem Tartrate (Ambien) 5 mg PO HS PRN PRN Reason: Insomnia Stop: 07/27/17 20:50 Last Admin: 05/30/17 23:20 Dose: 5 mg General: No acute distress HEENT: Atraumatic Cardiovascular: Regular rate, Normal S1, Normal S2 Abdomen: Bowel sounds - Procedures Procedures: Procedures Procedure Code Date BYPASS STOMACH TO JEJUNUM, OPEN APPROACH [id number] 05/28/17 DRAINAGE OF PERITONEAL CAVITY WITH DRAIN DEV, OPEN APPROACH [id number] 01/25/17 FUSION OF STOMACH AND BOWEL 93626 05/28/17 INSERT INFUSION DEV IN R INT JUGULAR VEIN, PERC [id number] 01/25/17 INSERTION OF INFUSION DEVICE INTO R ATRIUM, PERC APPROACH [id number] 01/25/17 INSPECTION OF GASTROINTESTINAL TRACT, OPEN APPROACH [id number] 01/25/17 REMOVAL OF GALLBLADDER 69107 01/25/17 REOPENING OF ABDOMEN 53609 01/25/17 REPAIR STOMACH, OPEN APPROACH [id number] 01/25/17 RESECTION OF GALLBLADDER, OPEN APPROACH [id number] 01/25/17 RESPIRATORY VENTILATION, 24-96 CONSECUTIVE HOURS [id number] 05/28/17 RESPIRATORY VENTILATION, LESS THAN 24 CONSECUTIVE HOURS [id number] 01/25/17 STOMACH SURGERY PROCEDURE 22972 01/25/17 VENT MGMT INPAT IN DAY 79292 01/25/17 Assessment/Plan - Problem List Patient Problems: All Active Problems H/O diabetes mellitus (Acute) Z86.39 H/O drug abuse (Acute) Z87.898 H/O: HTN (hypertension) (Acute) Z86.79 POSTCHOLECYSTECTOMY (Acute) UTI (urinary tract infection) (Acute) closeure og gastric perf (Acute) cplacement of new gj (Acute) h/o dementia (Acute) lysisi of adhesions (Acute) r/o sepsis (Acute) s/p surgery (Acute) septic shock (Acute) tachycardia (Acute) - Assessment Assessment: epigastric pain gastritis ostomy hole with discharge s/p cholecystectomy - Plan Plan: as per order sheet Nutritional Asmnt/Malnutr-PDOC - Dietary Evaluation Malnutrition Findings (Please click <Entered> for more info): Nutritional Asmnt/Malnutrition Start: 05/30/17 15: 01 Text: Status: Complete Freq: Document 05/30/17 15:01 GSUN (Rec: 05/30/17 15:47 [email or web address] [id number]) Nutritional Asmnt/Malnutrition Patient General Information Nutritional Screening High Risk Screening Diagnosis Abd pain, gastrocutaneous fistula, UTI, leukocytosis ( improved) Pertinent Medical Hx/Surgical Hx HTN, DM, cholecystectomy past January 2017 Subjective Information 71 year old female from SNF. Upper GI series today, RN stated possible surgeries pending. Pt was alert and pleasant, appeared anxious, aware of medical condition and TPN/nutrition plan of care. RD explained TPN again, pt has no further questions. Pt reported she has been on TPN since January 2017. Found SNF TPN order in transfer chart, noted under "dosing weight: 134.4lb," pt confirmed wt 130lb measured this month. Questionabled EMR weight, unable to obtain CBW due to bedscale not calibrated. Unable to compelte physical assessment due to heavy blankets. Pt report usual BM pattern once every 2-3 days, given laxative at SNF to promote BM every day. Current Diet Order/ Nutrition Support D25% AA4.25% at 40ml/hr with IL20% 200ml, providing 1359kcal, 40g protein Pertinent Medications Novolog, TPN, Morphine, Multivitamins, Zofran, Protonix, Nacl 0.9% Pertinent Labs 05/29: triglycerides 89 WNL 05/30: BUN 29H (improving), creatinine WNL, glucose 197H, total bilirubin WNL, A1c 6.5H Nutritional Hx/Data Height 1.73 m Height (Calculated Centimeters) 172.7 Current Weight (lbs) 66.678 kg Weight (Calculated Kilograms) 66.7 Weight (Calculated Grams) 39224.1 Usual body Weight (lbs) 130 [place] Body Weight 154 Weight Status Approriate GI Symptoms GI Symptoms Vomitting Cultural/Ethnic/Church Belief [facility]: Dextrose 288gm, AA96gm, IL 18g, 2010ml, providing 1525kcal. Skin Integrity/Comment: Asad Eid. hydrologist: abdomen rash/fistula, otherwise skin intact. Estimated Nutritional Goals Calories/Kcals/Kg UBW 130lb/59.1kg Kcals Calculated 1478-1773kcal (25-30kcal/kg) Protein Calculated 59-83g (1-1.4g/kg) Fluid: ml Per MD Nutritional Problem 1. 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 Recommend TPN D19% AA5.5% at 50ml/hr with IL20% 250ml, providing 1539kcal, 66g protein. Dx DM, 50% of total kcal from dextrose. Carb load 2.6mg/kg/min (using SNF weight 134.4lb/61.1kg). Pt has been on TPN since January 2017. 2. Obtain CBW, bedscale inproperly calibrated during visit. Dosing weight 134.4lb noted under SNF TPN order. Pt stated UBW 130lb. Expected Outcomes/Goals Expected Outcomes/Goals 1. Pt to meet 100% of estimated nutritional needs on TPN with tolerance.
[2017-06-02] MEDS: Chlorhexidine Gluconate 0.12% 15mL Mouthwash MM SCH (10:16)
[2017-06-02] MEDS ORDERED: Probiotic Screen MC PRN (11:23)
--- NOTE | 2017-06-02 13:43 | Infectious Disease Prog Note ---
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 Infectious Disease Objective - Results Result Diagrams: 06/02/17 07:25 06/02/17 05:22 Recent Labs: Laboratory Last Values WBC 15.4 Th/cmm (4.8-10.8) H D 06/02/17 07:25 RBC 2.36 Mil/cmm (3.80-5.20) L 06/02/17 07:25 Hgb 7.4 gm/dL (11.7-16.1) L* D 06/02/17 07:25 Hct 21.4 % (35.0-45.0) L* D 06/02/17 07:25 MCV 90.5 fl (81-100) 06/02/17 07:25 MCH 31.1 pg (27.0-31.0) H 06/02/17 07:25 MCHC Differential 34.4 pg (28.0-36.0) 06/02/17 07:25 RDW 15.0 % (11.5-20.0) 06/02/17 07:25 Plt Count 217 Th/cmm (150-400) D 06/02/17 07:25 MPV 7.9 fl 06/02/17 07:25 Neutrophils % 60.5 % (40.0-80.0) 05/31/17 05:25 Band Neutrophils % 2 % (0-10) 06/02/17 07:25 Lymphocytes % 26.0 % (20.0-50.0) 05/31/17 05:25 Monocytes % 10.8 % (2.0-10.0) H 05/31/17 05:25 Eosinophils % 2.1 % (0.0-5.0) 05/31/17 05:25 Basophils % 0.6 % (0.0-2.0) 05/31/17 05:25 Neutrophils (Manual) 82 % (40-80) H 06/02/17 07:25 Lymphocytes 10 % (20-50) L 06/02/17 07:25 Monocytes 6 % (2-10) 06/02/17 07:25 Platelet Estimate ADEQUATE (NORMAL) 06/02/17 07:25 Platelet Morphology NORMAL (NORMAL) 06/02/17 07:25 Anisocytosis 1+ 06/02/17 07:25 RBC Morph Micro Appear ABNORMAL (NORMAL) 06/02/17 07:25 PT 11.0 SECONDS (9.5-11.5) 05/31/17 05:25 INR 1.06 (0.5-1.4) 05/31/17 05:25 Specimen Source Arterial 06/02/17 09:51 Sample Site Right Radial 06/02/17 09:51 pH 7.39 (7.35-7.45) 06/02/17 09:51 pCO2 43.0 mmHg (35.0-45.0) 06/02/17 09:51 pO2 144.0 mmHg (80.0-100.0) H 06/02/17 09:51 HCO3 25.6 mEq/L (20.0-26.0) 06/02/17 09:51 Base Excess 0.8 mEq/L (-3.0-3.0) 06/02/17 09:51 O2 Saturation 99.0 % (92.0-100.0) 06/02/17 09:51 Luther Test PASS 06/02/17 09:51 Vent Rate 6 06/01/17 08:44 Inspired O2 28 06/02/17 09:51 Tidal Volume 450 06/01/17 08:44 PEEP 5 06/01/17 08:44 Pressure (ins/psv/peep) 15 06/01/17 08:44 Critical Value PW 06/02/17 09:51 Sodium 140 mEq/L (136-145) 06/02/17 05:22 Potassium 3.5 mEq/L (3.5-5.1) 06/02/17 05:22 Chloride 113 mEq/L (98-107) H 06/02/17 05:22 Carbon Dioxide 22.4 mEq/L (21.0-31.0) 06/02/17 05:22 Anion Gap 8.1 (7.0-16.0) 06/02/17 05:22 BUN 26 mg/dL (7-25) H 06/02/17 05:22 Creatinine 1.0 mg/dL (0.6-1.2) 06/02/17 05:22 Est GFR ( Amer) > 60.0 ml/min (>90) 06/02/17 05:22 Est GFR (Non-Af Amer) 58.4 ml/min 06/02/17 05:22 BUN/Creatinine Ratio 26.0 06/02/17 05:22 Glucose 195 mg/dL (70-105) H 06/02/17 05:22 POC Glucose 177 MG/DL (70-105) H 06/02/17 05:35 Hemoglobin A1c % 6.5 % (4.0-6.0) H 05/30/17 06:16 Whole Bld Lactic Acid 1.25 mmol/L (0.60-1.99) 05/28/17 16:22 Calcium 8.4 mg/dL (8.6-10.3) L 06/02/17 05:22 Phosphorus 2.5 mg/dL (2.5-5.0) 06/02/17 05:22 Magnesium 1.7 mg/dL (1.9-2.7) L 06/02/17 05:22 Total Bilirubin 0.3 mg/dL (0.3-1.0) 06/02/17 05:22 AST 19 U/L (13-39) 06/02/17 05:22 ALT 151 U/L (7-52) H 06/02/17 05:22 Alkaline Phosphatase 266 U/L (34-104) H 06/02/17 05:22 Troponin I 0.01 ng/mL (0.01-0.05) 05/28/17 16:22 Total Protein 5.1 gm/dL (6.0-8.3) L 06/02/17 05:22 Albumin 2.4 gm/dL (3.7-5.3) L 06/02/17 05:22 Globulin 2.7 gm/dL 06/02/17 05:22 Albumin/Globulin Ratio 0.9 (1.0-1.8) L 06/02/17 05:22 Prealbumin 18 mg/dL (10-36) 05/31/17 05:25 Triglycerides 79 mg/dL (<150) 05/31/17 05:25 Cholesterol 103 mg/dL (<200) 05/31/17 05:25 LDL Cholesterol Direct 78 mg/dL (75-193) 05/29/17 06:35 HDL Cholesterol 23 mg/dL (23-92) 05/29/17 06:35 Amylase 60 U/L (29-103) 05/28/17 16:22 Lipase 33 U/L (11-82) 05/28/17 16:22 TSH 1.14 uIU/ml (0.34-5.60) 05/29/17 06:35 Urine Source CATH 05/28/17 19:00 Urine Color YELLOW 05/28/17 19:00 Urine Clarity HAZY (CLEAR) 05/28/17 19:00 Urine pH 6.5 05/28/17 19:00 Ur Specific [place] 1.015 (1.005-1.030) 05/28/17 19:00 Urine Protein TRACE mg/dL (NEGATIVE) 05/28/17 19:00 Urine Glucose (UA) NEGATIVE mg/dL (NEGATIVE) 05/28/17 19:00 Urine Ketones NEGATIVE mg/dL (NEGATIVE) 05/28/17 19:00 Urine Blood TRACE (NEGATIVE) 05/28/17 19:00 Urine Nitrate NEGATIVE (NEGATIVE) 05/28/17 19:00 Urine Bilirubin NEGATIVE (NEGATIVE) 05/28/17 19:00 Urine Urobilinogen 0.2 E.U./dL (0.2 - 1.0) 05/28/17 19:00 Ur Leukocyte Esterase SMALL (NEGATIVE) H 05/28/17 19:00 Urine RBC 2-5 /hpf (0-5) 05/28/17 19:00 Urine WBC 50-100 /hpf (0-5) H 05/28/17 19:00 Ur Epithelial Cells FEW /lpf (FEW) 05/28/17 19:00 Urine Bacteria 1+ /hpf (NONE SEEN) H 05/28/17 19:00 Urine Mucus FEW /lpf (FEW) 05/28/17 19:00 Blood Type O POSITIVE 06/02/17 05:22 Antibody Screen NEGATIVE 06/02/17 05:22 Crossmatch See Detail 06/02/17 05:22 - Physical Exam Vitals and I&O: Vital Signs Temp 98.7 F 06/02/17 04:00 Pulse 113 06/02/17 11:40 Resp 10 06/02/17 11:40 BP 127/56 06/02/17 07:00 Pulse Ox 100 06/02/17 11:40 Intake & Output 06/01/17 06/02/17 06/02/17 18:59 06:59 18:59 Intake Total 2096.667 766.667 Output Total 1360 635 Balance 736.667 131.667 Weight (lbs) 65.771 kg 66.179 kg Intake: Intake, IV Amount 1436.667 766.667 Colistimethate 150 mg In 100 Sodium Chloride 0.9% 100 ml @ 100 mls/hr IV Q12HR [facility] Rx#:[id number] Linezolid 600mg/300mL 600 300 mg In 300 ml @ 300 mls/ hr IV Q12HR [facility] Rx#: [id number] Meropenem 1 gm In Sodium 100 100 Chloride 0.9% 100 ml @ 100 mls/hr IV Q8HR [facility] Rx #:[id number] Multivitamin Inj 10 ml In 936.667 Dextrose 70% 490 ml In Amino Acids 10% 500 ml In Intralipids 20% 200 ml @ 50 mls/hr IV .Q24H [facility] Rx#:[id number] Sodium Chloride 0.9% 1, 666.667 000 ml @ 125 mls/hr IV . Q8H [facility] Rx#:[id number] Oral 60 TPN/PPN 600 Output: Drainage 10 10 Left Lower Abdomen 10 10 Urine 1350 625 Other: # Bowel Movements 0 Active Medications: Current Medications Albuterol/Ipratropium (Duoneb Neb) 3 ml HHN Q4HRT [facility] Stop: 07/30/17 18:59 Last Admin: 06/02/17 11:39 Dose: 3 ml Budesonide (Pulmicort) 0.5 mg HHN BIDRT [facility] Stop: 07/30/17 18:59 Last Admin: 06/02/17 07:48 Dose: 0.5 mg Chlorhexidine Gluconate (Peridex) 15 ml MM [phone] [facility] Stop: 07/30/17 19:59 Last Admin: 06/01/17 09:45 Dose: 15 ml Clonidine HCl (Catapres) 0.2 mg PO DAILY [facility] Stop: 07/28/17 08:59 Last Admin: 06/01/17 09:45 Dose: Not Given Diltiazem HCl (Cardizem) 20 mg IVP Q3H PRN PRN Reason: HR => 120 bpm Stop: 07/30/17 21:14 Last Admin: 06/01/17 01:08 Dose: 20 mg Multivitamins/Minerals 10 ml/Dextrose/ Amino Acids/Electrolytes/ Fat Emulsion Intravenous 1,200 mls @ 50 mls/hr IV .Q24H ANISH Stop: 07/29/17 14:59 Last Admin: 06/01/17 15:23 Dose: 50 mls/hr Linezolid (Zyvox) 600 mg in 300 mls @ 300 mls/hr IV Q12HR ANISH Stop: 07/30/17 20:59 Last Admin: 06/01/17 22:17 Dose: 300 mls/hr Meropenem 1 gm/ Sodium (Chloride) 100 mls @ 100 mls/hr IV Q8HR ANISH Stop: 07/30/17 15:59 Last Admin: 06/02/17 06:53 Dose: 100 mls/hr Colistimethate Sodium 150 mg/ (Sodium Chloride) 100 mls @ 100 mls/hr IV Q12HR ANISH Stop: 07/30/17 20:59 Last Admin: 06/01/17 21:08 Dose: 100 mls/hr Sodium Chloride (Nacl 0.9%) 1,000 mls @ 125 mls/hr IV .Q8H [facility] Stop: 07/31/17 07:29 Last Admin: 06/02/17 06:56 Dose: 125 mls/hr Insulin Aspart (Novolog Insulin Sliding Scale) 0 units SUBQ ACHS ANISH PRN Reason: Protocol Stop: 07/31/17 07:29 Last Admin: 06/02/17 07:02 Dose: 4 units Lactobacillus Rhamnosus (Culturelle) 1 each PO DAILY ANISH Stop: 08/02/17 08:59 Lorazepam (Ativan) 1 mg IVP Q6HR PRN; Protocol PRN Reason: Anxiety Stop: 07/31/17 07:30 Miscellaneous (Tpn Per Pharmacy) 1 ea MC DAILY ANISH Stop: 07/28/17 08:59 Miscellaneous (Probiotic Screen) 1 ea MC PRN PRN PRN Reason: PROTOCOL Stop: 08/01/17 11:22 Morphine Sulfate (Morphine) 2 mg IVP Q4HR PRN PRN Reason: Abdominal Pain Stop: 07/30/17 14:36 Last Admin: 06/02/17 10:17 Dose: 2 mg Morphine Sulfate (Morphine) 2 mg IV Q3HR PRN PRN Reason: Severe Pain Stop: 07/30/17 17:08 Last Admin: 06/01/17 04:53 Dose: 2 mg Mupirocin (Bactroban Oint) 1 appl NS BID [facility] Stop: 06/04/17 17:01 Last Admin: 06/01/17 17:40 Dose: 1 appl Ondansetron HCl (Zofran Odt) 4 mg PO Q6HR PRN PRN Reason: Nausea Stop: 07/27/17 20:50 Last Admin: 05/29/17 05:56 Dose: 4 mg Oxycodone/Acetaminophen (Percocet 5/325mg Oral Tab) 1 tab PO QID PRN PRN Reason: Pain (Moderate) Stop: 07/27/17 20:50 Last Admin: 05/30/17 22:52 Dose: 1 tab Pantoprazole Sodium (Protonix) 40 mg IVP BID [facility] Stop: 07/30/17 16:59 Last Admin: 06/01/17 09:00 Dose: 40 mg Zolpidem Tartrate (Ambien) 5 mg PO HS PRN PRN Reason: Insomnia Stop: 07/27/17 20:50 Last Admin: 05/30/17 23:20 Dose: 5 mg General: no acute distress, well developed, well nourished HEENT: atraumatic, normocephalic, PERRLA, EOMI, moist mucous membrane Neck: supple, no thyromegaly Cardiovascular: S1S2, regular Lungs: clear to auscultation bilaterally, clear to percussion Abdomen: soft, other (surgical dressing.), no tender, no distended, no mass Extremities: no cyanosis, no clubbing, no edema Neurological: awake, alert, oriented Skin: intact - Procedures Procedures: Procedures Procedure Code Date BYPASS STOMACH TO JEJUNUM, OPEN APPROACH [id number] 05/28/17 DRAINAGE OF PERITONEAL CAVITY WITH DRAIN DEV, OPEN APPROACH [id number] 01/25/17 FUSION OF STOMACH AND BOWEL [id number] 05/28/17 INSERT INFUSION DEV IN R INT JUGULAR VEIN, PERC [id number] 01/25/17 INSERTION OF INFUSION DEVICE INTO R ATRIUM, PERC APPROACH [id number] 01/25/17 INSPECTION OF GASTROINTESTINAL TRACT, OPEN APPROACH [id number] 01/25/17 REMOVAL OF GALLBLADDER 10511 01/25/17 REOPENING OF ABDOMEN 58042 01/25/17 REPAIR STOMACH, OPEN APPROACH [id number] 01/25/17 RESECTION OF GALLBLADDER, OPEN APPROACH [id number] 01/25/17 RESPIRATORY VENTILATION, 24-96 CONSECUTIVE HOURS [id number] 05/28/17 RESPIRATORY VENTILATION, LESS THAN 24 CONSECUTIVE HOURS [id number] 01/25/17 STOMACH SURGERY PROCEDURE [id number] 01/25/17 VENT MGMT INPAT INIT DAY 47499 01/25/17 Infectious Disease Assmt/Plan - Problem List Patient Problems: All Active Problems H/O diabetes mellitus (Acute) Z86.39 H/O drug abuse (Acute) Z87.898 H/O: HTN (hypertension) (Acute) Z86.79 POSTCHOLECYSTECTOMY (Acute) UTI (urinary tract infection) (Acute) closeure og gastric perf (Acute) cplacement of new gj (Acute) h/o dementia (Acute) lysisi of adhesions (Acute) r/o sepsis (Acute) s/p surgery (Acute) septic shock (Acute) tachycardia (Acute) - Assessment Assessment: 1. Abdominal pain, unknown etiology. 2. Gastrocutaneous fistula. 3. UTI. 4. Leukocytosis. Improved. Plan: Change antibiotic to zyvox, meropenem and colistin as patient had MDRO grew from wound at [facility], prior to her discharge. Nutritional Asmnt/Malnutr-PDOC - Dietary Evaluation Malnutrition Findings (Please click <Entered> for more info): Nutritional Asmnt/Malnutrition Start: 05/30/17 15: 01 Text: Status: Complete Freq: Document 05/30/17 15:01 UN (Rec: 05/30/17 15:47 UN [email or web address]) Nutritional Asmnt/Malnutrition Patient General Information Nutritional Screening High Risk Screening Diagnosis Abd pain, gastrocutaneous fistula, UTI, leukocytosis ( improved) Pertinent Medical Hx/Surgical Hx HTN, DM, cholecystectomy past January 2017 Subjective Information 71 year old female from SNF. Upper GI series today, RN stated possible surgeries pending. Pt was alert and pleasant, appeared anxious, aware of medical condition and TPN/nutrition plan of care. RD explained TPN again, pt has no further questions. Pt reported she has been on TPN since January 2017. Found SNF TPN order in transfer chart, noted under "dosing weight: 134.4lb," pt confirmed wt 130lb measured this month. Questionabled EMR weight, unable to obtain CBW due to bedscale not calibrated. Unable to compelte physical assessment due to heavy blankets. Pt report usual BM pattern once every 2-3 days, given laxative at SNF to promote BM every day. Current Diet Order/ Nutrition Support D25% AA4.25% at 40ml/hr with IL20% 200ml, providing 1359kcal, 40g protein Pertinent Medications Novolog, TPN, Morphine, Multivitamins, Zofran, Protonix, Nacl 0.9% Pertinent Labs 05/29: triglycerides 89 WNL 05/30: BUN 29H (improving), creatinine WNL, glucose 197H, total bilirubin WNL, A1c 6.5H Nutritional Hx/Data Height 1.73 m Height (Calculated Centimeters) 172.7 Current Weight (lbs) 66.678 kg Weight (Calculated Kilograms) 66.7 Weight (Calculated Grams) 32766.1 Usual body Weight (lbs) 130 [place] Body Weight 154 Weight Status Approriate GI Symptoms GI Symptoms Vomitting Cultural/Ethnic/[employer] [facility]: Dextrose 288gm, AA96gm, IL 18g, 2010ml, providing 1525kcal. Skin Integrity/Comment: Asad Eid. assessment nurse practitioner: abdomen rash/fistula, otherwise skin intact. Estimated Nutritional Goals Calories/Kcals/Kg UBW 130lb/59.1kg Kcals Calculated 1478-1773kcal (25-30kcal/kg) Protein Calculated 59-83g (1-1.4g/kg) Fluid: ml Per MD Nutritional Problem 1. 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 Recommend TPN D19% AA5.5% at 50ml/hr with IL20% 250ml, providing 1539kcal, 66g protein. Dx DM, 50% of total kcal from dextrose. Carb load 2.6mg/kg/min (using SNF weight 134.4lb/61.1kg). Pt has been on TPN since January 2017. 2. Obtain CBW, bedscale inproperly calibrated during visit. Dosing weight 134.4lb noted under SNF TPN order. Pt stated UBW 130lb. Expected Outcomes/Goals Expected Outcomes/Goals 1. Pt to meet 100% of estimated nutritional needs on TPN with tolerance.
--- NOTE | 2017-06-02 14:16 | General Progress Note ---
Subjective - Review of Systems Service Date: 06/02/17 Events since last encounter: NGT drainage minimal SANCHEZ drainage 40 cc , serous urine output good start clear liquids Objective - Results Result Diagrams: 06/02/17 07:25 06/02/17 05:22 Recent Labs: Laboratory Last Values WBC 15.4 Th/cmm (4.8-10.8) H D 06/02/17 07:25 RBC 2.36 Mil/cmm (3.80-5.20) L 06/02/17 07:25 Hgb 7.4 gm/dL (11.7-16.1) L* D 06/02/17 07:25 Hct 21.4 % (35.0-45.0) L* D 06/02/17 07:25 MCV 90.5 fl (81-100) 06/02/17 07:25 MCH 31.1 pg (27.0-31.0) H 06/02/17 07:25 MCHC Differential 34.4 pg (28.0-36.0) 06/02/17 07:25 RDW 15.0 % (11.5-20.0) 06/02/17 07:25 Plt Count 217 Th/cmm (150-400) D 06/02/17 07:25 MPV 7.9 fl 06/02/17 07:25 Neutrophils % 60.5 % (40.0-80.0) 05/31/17 05:25 Band Neutrophils % 2 % (0-10) 06/02/17 07:25 Lymphocytes % 26.0 % (20.0-50.0) 05/31/17 05:25 Monocytes % 10.8 % (2.0-10.0) H 05/31/17 05:25 Eosinophils % 2.1 % (0.0-5.0) 05/31/17 05:25 Basophils % 0.6 % (0.0-2.0) 05/31/17 05:25 Neutrophils (Manual) 82 % (40-80) H 06/02/17 07:25 Lymphocytes 10 % (20-50) L 06/02/17 07:25 Monocytes 6 % (2-10) 06/02/17 07:25 Platelet Estimate ADEQUATE (NORMAL) 06/02/17 07:25 Platelet Morphology NORMAL (NORMAL) 06/02/17 07:25 Anisocytosis 1+ 06/02/17 07:25 RBC Morph Micro Appear ABNORMAL (NORMAL) 06/02/17 07:25 PT 11.0 SECONDS (9.5-11.5) 05/31/17 05:25 INR 1.06 (0.5-1.4) 05/31/17 05:25 Specimen Source Arterial 06/02/17 09:51 Sample Site Right Radial 06/02/17 09:51 pH 7.39 (7.35-7.45) 06/02/17 09:51 pCO2 43.0 mmHg (35.0-45.0) 06/02/17 09:51 pO2 144.0 mmHg (80.0-100.0) H 06/02/17 09:51 HCO3 25.6 mEq/L (20.0-26.0) 06/02/17 09:51 Base Excess 0.8 mEq/L (-3.0-3.0) 06/02/17 09:51 O2 Saturation 99.0 % (92.0-100.0) 06/02/17 09:51 Luther Test PASS 06/02/17 09:51 Vent Rate 6 06/01/17 08:44 Inspired O2 28 06/02/17 09:51 Tidal Volume 450 06/01/17 08:44 PEEP 5 06/01/17 08:44 Pressure (ins/psv/peep) 15 06/01/17 08:44 Critical Value PW 06/02/17 09:51 Sodium 140 mEq/L (136-145) 06/02/17 05:22 Potassium 3.5 mEq/L (3.5-5.1) 06/02/17 05:22 Chloride 113 mEq/L (98-107) H 06/02/17 05:22 Carbon Dioxide 22.4 mEq/L (21.0-31.0) 06/02/17 05:22 Anion Gap 8.1 (7.0-16.0) 06/02/17 05:22 BUN 26 mg/dL (7-25) H 06/02/17 05:22 Creatinine 1.0 mg/dL (0.6-1.2) 06/02/17 05:22 Est GFR ( Amer) > 60.0 ml/min (>90) 06/02/17 05:22 Est GFR (Non-Af Amer) 58.4 ml/min 06/02/17 05:22 BUN/Creatinine Ratio 26.0 06/02/17 05:22 Glucose 195 mg/dL (70-105) H 06/02/17 05:22 POC Glucose 169 MG/DL (70 - 105) H 06/02/17 14:08 Hemoglobin A1c % 6.5 % (4.0-6.0) H 05/30/17 06:16 Whole Bld Lactic Acid 1.25 mmol/L (0.60-1.99) 05/28/17 16:22 Calcium 8.4 mg/dL (8.6-10.3) L 06/02/17 05:22 Phosphorus 2.5 mg/dL (2.5-5.0) 06/02/17 05:22 Magnesium 1.7 mg/dL (1.9-2.7) L 06/02/17 05:22 Total Bilirubin 0.3 mg/dL (0.3-1.0) 06/02/17 05:22 AST 19 U/L (13-39) 06/02/17 05:22 ALT 151 U/L (7-52) H 06/02/17 05:22 Alkaline Phosphatase 266 U/L (34-104) H 06/02/17 05:22 Troponin I 0.01 ng/mL (0.01-0.05) 05/28/17 16:22 Total Protein 5.1 gm/dL (6.0-8.3) L 06/02/17 05:22 Albumin 2.4 gm/dL (3.7-5.3) L 06/02/17 05:22 Globulin 2.7 gm/dL 06/02/17 05:22 Albumin/Globulin Ratio 0.9 (1.0-1.8) L 06/02/17 05:22 Prealbumin 18 mg/dL (10-36) 05/31/17 05:25 Triglycerides 79 mg/dL (<150) 05/31/17 05:25 Cholesterol 103 mg/dL (<200) 05/31/17 05:25 LDL Cholesterol Direct 78 mg/dL (75-193) 05/29/17 06:35 HDL Cholesterol 23 mg/dL (23-92) 05/29/17 06:35 Amylase 60 U/L (29-103) 05/28/17 16:22 Lipase 33 U/L (11-82) 05/28/17 16:22 TSH 1.14 uIU/ml (0.34-5.60) 05/29/17 06:35 Urine Source CATH 05/28/17 19:00 Urine Color YELLOW 05/28/17 19:00 Urine Clarity HAZY (CLEAR) 05/28/17 19:00 Urine pH 6.5 05/28/17 19:00 Ur Specific [place] 1.015 (1.005-1.030) 05/28/17 19:00 Urine Protein TRACE mg/dL (NEGATIVE) 05/28/17 19:00 Urine Glucose (UA) NEGATIVE mg/dL (NEGATIVE) 05/28/17 19:00 Urine Ketones NEGATIVE mg/dL (NEGATIVE) 05/28/17 19:00 Urine Blood TRACE (NEGATIVE) 05/28/17 19:00 Urine Nitrate NEGATIVE (NEGATIVE) 05/28/17 19:00 Urine Bilirubin NEGATIVE (NEGATIVE) 05/28/17 19:00 Urine Urobilinogen 0.2 E.U./dL (0.2 - 1.0) 05/28/17 19:00 Ur Leukocyte Esterase SMALL (NEGATIVE) H 05/28/17 19:00 Urine RBC 2-5 /hpf (0-5) 05/28/17 19:00 Urine WBC 50-100 /hpf (0-5) H 05/28/17 19:00 Ur Epithelial Cells FEW /lpf (FEW) 05/28/17 19:00 Urine Bacteria 1+ /hpf (NONE SEEN) H 05/28/17 19:00 Urine Mucus FEW /lpf (FEW) 05/28/17 19:00 Blood Type O POSITIVE 06/02/17 05:22 Antibody Screen NEGATIVE 06/02/17 05:22 Crossmatch See Detail 06/02/17 05:22 - Physical Exam Vitals and I&O: Vital Signs Temp 98.7 F 06/02/17 04:00 Pulse 113 06/02/17 11:40 Resp 10 06/02/17 11:40 BP 127/56 06/02/17 07:00 Pulse Ox 100 06/02/17 11:40 Intake & Output 06/01/17 06/02/17 06/02/17 18:59 06:59 18:59 Intake Total 2096.667 766.667 Output Total 1360 635 Balance 736.667 131.667 Weight (lbs) 65.771 kg 66.179 kg Intake: Intake, IV Amount 1436.667 766.667 Colistimethate 150 mg In 100 Sodium Chloride 0.9% 100 ml @ 100 mls/hr IV Q12HR [facility] Rx#:[id number] Linezolid 600mg/300mL 600 300 mg In 300 ml @ 300 mls/ hr IV Q12HR [facility] Rx#: [id number] Meropenem 1 gm In Sodium 100 100 Chloride 0.9% 100 ml @ 100 mls/hr IV Q8HR [facility] Rx #:[id number] Multivitamin Inj 10 ml In 936.667 Dextrose 70% 490 ml In Amino Acids 10% 500 ml In Intralipids 20% 200 ml @ 50 mls/hr IV .Q24H [facility] Rx#:[id number] Sodium Chloride 0.9% 1, 666.667 000 ml @ 125 mls/hr IV . Q8H [facility] Rx#:[id number] Oral 60 TPN/PPN 600 Output: Drainage 10 10 Left Lower Abdomen 10 10 Urine 1350 625 Other: # Bowel Movements 0 Active Medications: Current Medications Albuterol/Ipratropium (Duoneb Neb) 3 ml HHN Q4HRT [facility] Stop: 07/30/17 18:59 Last Admin: 06/02/17 11:39 Dose: 3 ml Budesonide (Pulmicort) 0.5 mg HHN BIDRT [facility] Stop: 07/30/17 18:59 Last Admin: 06/02/17 07:48 Dose: 0.5 mg Chlorhexidine Gluconate (Peridex) 15 ml MM 799,1999 [facility] Stop: 07/30/17 19:59 Last Admin: 06/01/17 09:45 Dose: 15 ml Clonidine HCl (Catapres) 0.2 mg PO DAILY [facility] Stop: 07/28/17 08:59 Last Admin: 06/01/17 09:45 Dose: Not Given Diltiazem HCl (Cardizem) 20 mg IVP Q3H PRN PRN Reason: HR => 120 bpm Stop: 07/30/17 21:14 Last Admin: 06/01/17 01:08 Dose: 20 mg Multivitamins/Minerals 10 ml/Dextrose/ Amino Acids/Electrolytes/ Fat Emulsion Intravenous 1,200 mls @ 50 mls/hr IV .Q24H [facility] Stop: 07/29/17 14:59 Last Admin: 06/01/17 15:23 Dose: 50 mls/hr Linezolid (Zyvox) 600 mg in 300 mls @ 300 mls/hr IV Q12HR [facility] Stop: 07/30/17 20:59 Last Admin: 06/01/17 22:17 Dose: 300 mls/hr Meropenem 1 gm/ Sodium (Chloride) 100 mls @ 100 mls/hr IV Q8HR [facility] Stop: 07/30/17 15:59 Last Admin: 06/02/17 06:53 Dose: 100 mls/hr Colistimethate Sodium 150 mg/ (Sodium Chloride) 100 mls @ 100 mls/hr IV Q12HR [facility] Stop: 07/30/17 20:59 Last Admin: 06/01/17 21:08 Dose: 100 mls/hr Sodium Chloride (Nacl 0.9%) 1,000 mls @ 125 mls/hr IV .Q8H [facility] Stop: 07/31/17 07:29 Last Admin: 06/02/17 06:56 Dose: 125 mls/hr Insulin Aspart (Novolog Insulin Sliding Scale) 0 units SUBQ ACHS [facility] PRN Reason: Protocol Stop: 07/31/17 07:29 Last Admin: 06/02/17 07:02 Dose: 4 units Lactobacillus Rhamnosus (Culturelle) 1 each PO DAILY [facility] Stop: 08/02/17 08:59 Lorazepam (Ativan) 1 mg IVP Q6HR PRN; Protocol PRN Reason: Anxiety Stop: 07/31/17 07:30 Miscellaneous (Tpn Per Pharmacy) 1 ea MC DAILY [facility] Stop: 07/28/17 08:59 Miscellaneous (Probiotic Screen) 1 ea MC PRN PRN PRN Reason: PROTOCOL Stop: 08/01/17 11:22 Morphine Sulfate (Morphine) 2 mg IVP Q4HR PRN PRN Reason: Abdominal Pain Stop: 07/30/17 14:36 Last Admin: 06/02/17 10:17 Dose: 2 mg Morphine Sulfate (Morphine) 2 mg IV Q3HR PRN PRN Reason: Severe Pain Stop: 07/30/17 17:08 Last Admin: 06/01/17 04:53 Dose: 2 mg Mupirocin (Bactroban Oint) 1 appl NS BID [facility] Stop: 06/04/17 17:01 Last Admin: 06/01/17 17:40 Dose: 1 appl Ondansetron HCl (Zofran Odt) 4 mg PO Q6HR PRN PRN Reason: Nausea Stop: 07/27/17 20:50 Last Admin: 05/29/17 05:56 Dose: 4 mg Oxycodone/Acetaminophen (Percocet 5/325mg Oral Tab) 1 tab PO QID PRN PRN Reason: Pain (Moderate) Stop: 07/27/17 20:50 Last Admin: 05/30/17 22:52 Dose: 1 tab Pantoprazole Sodium (Protonix) 40 mg IVP BID [facility] Stop: 07/30/17 16:59 Last Admin: 06/01/17 09:00 Dose: 40 mg Zolpidem Tartrate (Ambien) 5 mg PO HS PRN PRN Reason: Insomnia Stop: 07/27/17 20:50 Last Admin: 05/30/17 23:20 Dose: 5 mg General: No acute distress HEENT: Atraumatic Cardiovascular: Regular rate, Normal S1, Normal S2 Abdomen: Bowel sounds - Procedures Procedures: Procedures Procedure Code Date BYPASS STOMACH TO JEJUNUM, OPEN APPROACH [id number] 05/28/17 DRAINAGE OF PERITONEAL CAVITY WITH DRAIN DEV, OPEN APPROACH [id number] 01/25/17 FUSION OF STOMACH AND BOWEL [id number] 05/28/17 INSERT INFUSION DEV IN R INT JUGULAR VEIN, PERC [id number] 01/25/17 INSERTION OF INFUSION DEVICE INTO R ATRIUM, PERC APPROACH [id number] 01/25/17 INSPECTION OF GASTROINTESTINAL TRACT, OPEN APPROACH [id number] 01/25/17 REMOVAL OF GALLBLADDER 46780 01/25/17 REOPENING OF ABDOMEN 46933 01/25/17 REPAIR STOMACH, OPEN APPROACH [id number] 01/25/17 RESECTION OF GALLBLADDER, OPEN APPROACH [id number] 01/25/17 RESPIRATORY VENTILATION, 24-96 CONSECUTIVE HOURS [id number] 05/28/17 RESPIRATORY VENTILATION, LESS THAN 24 CONSECUTIVE HOURS [id number] 01/25/17 STOMACH SURGERY PROCEDURE 44522 01/25/17 VENT MGMT INPAT INIT DAY 51581 01/25/17 Assessment/Plan - Problem List Patient Problems: All Active Problems H/O diabetes mellitus (Acute) Z86.39 H/O drug abuse (Acute) Z87.898 H/O: HTN (hypertension) (Acute) Z86.79 POSTCHOLECYSTECTOMY (Acute) UTI (urinary tract infection) (Acute) closeure og gastric perf (Acute) cplacement of new gj (Acute) h/o dementia (Acute) lysisi of adhesions (Acute) r/o sepsis (Acute) s/p surgery (Acute) septic shock (Acute) tachycardia (Acute) Nutritional Asmnt/Malnutr-PDOC - Dietary Evaluation Malnutrition Findings (Please click <Entered> for more info): Nutritional Asmnt/Malnutrition Start: 05/30/17 15: 01 Text: Status: Complete Freq: Document 05/30/17 15:01 [email or web address] (Rec: 05/30/17 15:47 [id number]) Nutritional Asmnt/Malnutrition Patient General Information Nutritional Screening High Risk Screening Diagnosis Abd pain, gastrocutaneous fistula, UTI, leukocytosis ( improved) Pertinent Medical Hx/Surgical Hx HTN, DM, cholecystectomy past January 2017 Subjective Information 71 year old female from SNF. Upper GI series today, RN stated possible surgeries pending. Pt was alert and pleasant, appeared anxious, aware of medical condition and TPN/nutrition plan of care. RD explained TPN again, pt has no further questions. Pt reported she has been on TPN since January 2017. Found SNF TPN order in transfer chart, noted under "dosing weight: 134.4lb," pt confirmed wt 130lb measured this month. Questionabled EMR weight, unable to obtain CBW due to bedscale not calibrated. Unable to compelte physical assessment due to heavy blankets. Pt report usual BM pattern once every 2-3 days, given laxative at SNF to promote BM every day. Current Diet Order/ Nutrition Support D25% AA4.25% at 40ml/hr with IL20% 200ml, providing 1359kcal, 40g protein Pertinent Medications Novolog, TPN, Morphine, Multivitamins, Zofran, Protonix, Nacl 0.9% Pertinent Labs 05/29: triglycerides 89 WNL 05/30: BUN 29H (improving), creatinine WNL, glucose 197H, total bilirubin WNL, A1c 6.5H Nutritional Hx/Data Height 1.73 m Height (Calculated Centimeters) 172.7 Current Weight (lbs) 66.678 kg Weight (Calculated Kilograms) 66.7 Weight (Calculated Grams) 04694.1 Usual body Weight (lbs) 130 [place] Body Weight 154 Weight Status Approriate GI Symptoms GI Symptoms Vomitting Cultural/Ethnic/Hindu Belief [facility]: Dextrose 288gm, AA96gm, IL 18g, 2010ml, providing 1525kcal. Skin Integrity/Comment: Asad Eid. manager new product: abdomen rash/fistula, otherwise skin intact. Estimated Nutritional Goals Calories/Kcals/Kg UBW 130lb/59.1kg Kcals Calculated 1478-1773kcal (25-30kcal/kg) Protein Calculated 59-83g (1-1.4g/kg) Fluid: ml Per MD Nutritional Problem 1. 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 Recommend TPN D19% AA5.5% at 50ml/hr with IL20% 250ml, providing 1539kcal, 66g protein. Dx DM, 50% of total kcal from dextrose. Carb load 2.6mg/kg/min (using SNF weight 134.4lb/61.1kg). Pt has been on TPN since January 2017. 2. Obtain CBW, bedstj inproperly calibrated during visit. Dosing weight 134.4lb noted under SNF TPN order. Pt stated UBW 130lb. Expected Outcomes/Goals Expected Outcomes/Goals 1. Pt to meet 100% of estimated nutritional needs on TPN with tolerance.
--- NOTE | 2017-06-02 14:17 | General Progress Note ---
Subjective - Review of Systems Service Date: 06/02/17 Objective - Results Result Diagrams: 06/02/17 07:25 06/02/17 05:22 Recent Labs: Laboratory Last Values WBC 15.4 Th/cmm (4.8-10.8) H D 06/02/17 07:25 RBC 2.36 Mil/cmm (3.80-5.20) L 06/02/17 07:25 Hgb 7.4 gm/dL (11.7-16.1) L* D 06/02/17 07:25 Hct 21.4 % (35.0-45.0) L* D 06/02/17 07:25 MCV 90.5 fl (81-100) 06/02/17 07:25 MCH 31.1 pg (27.0-31.0) H 06/02/17 07:25 MCHC Differential 34.4 pg (28.0-36.0) 06/02/17 07:25 RDW 15.0 % (11.5-20.0) 06/02/17 07:25 Plt Count 217 Th/cmm (150-400) D 06/02/17 07:25 MPV 7.9 fl 06/02/17 07:25 Neutrophils % 60.5 % (40.0-80.0) 05/31/17 05:25 Band Neutrophils % 2 % (0-10) 06/02/17 07:25 Lymphocytes % 26.0 % (20.0-50.0) 05/31/17 05:25 Monocytes % 10.8 % (2.0-10.0) H 05/31/17 05:25 Eosinophils % 2.1 % (0.0-5.0) 05/31/17 05:25 Basophils % 0.6 % (0.0-2.0) 05/31/17 05:25 Neutrophils (Manual) 82 % (40-80) H 06/02/17 07:25 Lymphocytes 10 % (20-50) L 06/02/17 07:25 Monocytes 6 % (2-10) 06/02/17 07:25 Platelet Estimate ADEQUATE (NORMAL) 06/02/17 07:25 Platelet Morphology NORMAL (NORMAL) 06/02/17 07:25 Anisocytosis 1+ 06/02/17 07:25 RBC Morph Micro Appear ABNORMAL (NORMAL) 06/02/17 07:25 PT 11.0 SECONDS (9.5-11.5) 05/31/17 05:25 INR 1.06 (0.5-1.4) 05/31/17 05:25 Specimen Source Arterial 06/02/17 09:51 Sample Site Right Radial 06/02/17 09:51 pH 7.39 (7.35-7.45) 06/02/17 09:51 pCO2 43.0 mmHg (35.0-45.0) 06/02/17 09:51 pO2 144.0 mmHg (80.0-100.0) H 06/02/17 09:51 HCO3 25.6 mEq/L (20.0-26.0) 06/02/17 09:51 Base Excess 0.8 mEq/L (-3.0-3.0) 06/02/17 09:51 O2 Saturation 99.0 % (92.0-100.0) 06/02/17 09:51 Luther Test PASS 06/02/17 09:51 Vent Rate 6 06/01/17 08:44 Inspired O2 28 06/02/17 09:51 Tidal Volume 450 06/01/17 08:44 PEEP 5 06/01/17 08:44 Pressure (ins/psv/peep) 15 06/01/17 08:44 Critical Value PW 06/02/17 09:51 Sodium 140 mEq/L (136-145) 06/02/17 05:22 Potassium 3.5 mEq/L (3.5-5.1) 06/02/17 05:22 Chloride 113 mEq/L (98-107) H 06/02/17 05:22 Carbon Dioxide 22.4 mEq/L (21.0-31.0) 06/02/17 05:22 Anion Gap 8.1 (7.0-16.0) 06/02/17 05:22 BUN 26 mg/dL (7-25) H 06/02/17 05:22 Creatinine 1.0 mg/dL (0.6-1.2) 06/02/17 05:22 Est GFR ( Amer) > 60.0 ml/min (>90) 06/02/17 05:22 Est GFR (Non-Af Amer) 58.4 ml/min 06/02/17 05:22 BUN/Creatinine Ratio 26.0 06/02/17 05:22 Glucose 195 mg/dL (70-105) H 06/02/17 05:22 POC Glucose 169 MG/DL (70 - 105) H 06/02/17 14:08 Hemoglobin A1c % 6.5 % (4.0-6.0) H 05/30/17 06:16 Whole Bld Lactic Acid 1.25 mmol/L (0.60-1.99) 05/28/17 16:22 Calcium 8.4 mg/dL (8.6-10.3) L 06/02/17 05:22 Phosphorus 2.5 mg/dL (2.5-5.0) 06/02/17 05:22 Magnesium 1.7 mg/dL (1.9-2.7) L 06/02/17 05:22 Total Bilirubin 0.3 mg/dL (0.3-1.0) 06/02/17 05:22 AST 19 U/L (13-39) 06/02/17 05:22 ALT 151 U/L (7-52) H 06/02/17 05:22 Alkaline Phosphatase 266 U/L (34-104) H 06/02/17 05:22 Troponin I 0.01 ng/mL (0.01-0.05) 05/28/17 16:22 Total Protein 5.1 gm/dL (6.0-8.3) L 06/02/17 05:22 Albumin 2.4 gm/dL (3.7-5.3) L 06/02/17 05:22 Globulin 2.7 gm/dL 06/02/17 05:22 Albumin/Globulin Ratio 0.9 (1.0-1.8) L 06/02/17 05:22 Prealbumin 18 mg/dL (10-36) 05/31/17 05:25 Triglycerides 79 mg/dL (<150) 05/31/17 05:25 Cholesterol 103 mg/dL (<200) 05/31/17 05:25 LDL Cholesterol Direct 78 mg/dL (75-193) 05/29/17 06:35 HDL Cholesterol 23 mg/dL (23-92) 05/29/17 06:35 Amylase 60 U/L (29-103) 05/28/17 16:22 Lipase 33 U/L (11-82) 05/28/17 16:22 TSH 1.14 uIU/ml (0.34-5.60) 05/29/17 06:35 Urine Source CATH 05/28/17 19:00 Urine Color YELLOW 05/28/17 19:00 Urine Clarity HAZY (CLEAR) 05/28/17 19:00 Urine pH 6.5 05/28/17 19:00 Ur Specific [place] 1.015 (1.005-1.030) 05/28/17 19:00 Urine Protein TRACE mg/dL (NEGATIVE) 05/28/17 19:00 Urine Glucose (UA) NEGATIVE mg/dL (NEGATIVE) 05/28/17 19:00 Urine Ketones NEGATIVE mg/dL (NEGATIVE) 05/28/17 19:00 Urine Blood TRACE (NEGATIVE) 05/28/17 19:00 Urine Nitrate NEGATIVE (NEGATIVE) 05/28/17 19:00 Urine Bilirubin NEGATIVE (NEGATIVE) 05/28/17 19:00 Urine Urobilinogen 0.2 E.U./dL (0.2 - 1.0) 05/28/17 19:00 Ur Leukocyte Esterase SMALL (NEGATIVE) H 05/28/17 19:00 Urine RBC 2-5 /hpf (0-5) 05/28/17 19:00 Urine WBC 50-100 /hpf (0-5) H 05/28/17 19:00 Ur Epithelial Cells FEW /lpf (FEW) 05/28/17 19:00 Urine Bacteria 1+ /hpf (NONE SEEN) H 05/28/17 19:00 Urine Mucus FEW /lpf (FEW) 05/28/17 19:00 Blood Type O POSITIVE 06/02/17 05:22 Antibody Screen NEGATIVE 06/02/17 05:22 Crossmatch See Detail 06/02/17 05:22 - Physical Exam Vitals and I&O: Vital Signs Temp 98.7 F 06/02/17 04:00 Pulse 113 06/02/17 11:40 Resp 10 06/02/17 11:40 BP 127/56 06/02/17 07:00 Pulse Ox 100 06/02/17 11:40 Intake & Output 06/01/17 06/02/17 06/02/17 18:59 06:59 18:59 Intake Total 2096.667 766.667 Output Total 1360 635 Balance 736.667 131.667 Weight (lbs) 65.771 kg 66.179 kg Intake: Intake, IV Amount 1436.667 766.667 Colistimethate 150 mg In 100 Sodium Chloride 0.9% 100 ml @ 100 mls/hr IV Q12HR [facility] Rx#:[id number] Linezolid 600mg/300mL 600 300 mg In 300 ml @ 300 mls/ hr IV Q12HR [facility] Rx#: [id number] Meropenem 1 gm In Sodium 100 100 Chloride 0.9% 100 ml @ 100 mls/hr IV Q8HR [facility] Rx #:[id number] Multivitamin Inj 10 ml In 936.667 Dextrose 70% 490 ml In Amino Acids 10% 500 ml In Intralipids 20% 200 ml @ 50 mls/hr IV .Q24H [facility] Rx#:[id number] Sodium Chloride 0.9% 1, 666.667 000 ml @ 125 mls/hr IV . Q8H [facility] Rx#:[id number] Oral 60 TPN/PPN 600 Output: Drainage 10 10 Left Lower Abdomen 10 10 Urine 1350 625 Other: # Bowel Movements 0 Active Medications: Current Medications Albuterol/Ipratropium (Duoneb Neb) 3 ml HHN Q4HRT [facility] Stop: 07/30/17 18:59 Last Admin: 06/02/17 11:39 Dose: 3 ml Budesonide (Pulmicort) 0.5 mg HHN BIDRT [facility] Stop: 07/30/17 18:59 Last Admin: 06/02/17 07:48 Dose: 0.5 mg Chlorhexidine Gluconate (Peridex) 15 ml MM 08,1999 [facility] Stop: 07/30/17 19:59 Last Admin: 06/01/17 09:45 Dose: 15 ml Clonidine HCl (Catapres) 0.2 mg PO DAILY [facility] Stop: 07/28/17 08:59 Last Admin: 06/01/17 09:45 Dose: Not Given Diltiazem HCl (Cardizem) 20 mg IVP Q3H PRN PRN Reason: HR => 120 bpm Stop: 07/30/17 21:14 Last Admin: 06/01/17 01:08 Dose: 20 mg Multivitamins/Minerals 10 ml/Dextrose/ Amino Acids/Electrolytes/ Fat Emulsion Intravenous 1,200 mls @ 50 mls/hr IV .Q24H [facility] Stop: 07/29/17 14:59 Last Admin: 06/01/17 15:23 Dose: 50 mls/hr Linezolid (Zyvox) 600 mg in 300 mls @ 300 mls/hr IV Q12HR [facility] Stop: 07/30/17 20:59 Last Admin: 06/01/17 22:17 Dose: 300 mls/hr Meropenem 1 gm/ Sodium (Chloride) 100 mls @ 100 mls/hr IV Q8HR [facility] Stop: 07/30/17 15:59 Last Admin: 06/02/17 06:53 Dose: 100 mls/hr Colistimethate Sodium 150 mg/ (Sodium Chloride) 100 mls @ 100 mls/hr IV Q12HR [facility] Stop: 07/30/17 20:59 Last Admin: 06/01/17 21:08 Dose: 100 mls/hr Sodium Chloride (Nacl 0.9%) 1,000 mls @ 125 mls/hr IV .Q8H [facility] Stop: 07/31/17 07:29 Last Admin: 06/02/17 06:56 Dose: 125 mls/hr Insulin Aspart (Novolog Insulin Sliding Scale) 0 units SUBQ ACHS [facility] PRN Reason: Protocol Stop: 07/31/17 07:29 Last Admin: 06/02/17 07:02 Dose: 4 units Lactobacillus Rhamnosus (Culturelle) 1 each PO DAILY [facility] Stop: 08/02/17 08:59 Lorazepam (Ativan) 1 mg IVP Q6HR PRN; Protocol PRN Reason: Anxiety Stop: 07/31/17 07:30 Miscellaneous (Tpn Per Pharmacy) 1 ea MC DAILY [facility] Stop: 07/28/17 08:59 Miscellaneous (Probiotic Screen) 1 ea MC PRN PRN PRN Reason: PROTOCOL Stop: 08/01/17 11:22 Morphine Sulfate (Morphine) 2 mg IVP Q4HR PRN PRN Reason: Abdominal Pain Stop: 07/30/17 14:36 Last Admin: 06/02/17 10:17 Dose: 2 mg Morphine Sulfate (Morphine) 2 mg IV Q3HR PRN PRN Reason: Severe Pain Stop: 07/30/17 17:08 Last Admin: 06/01/17 04:53 Dose: 2 mg Mupirocin (Bactroban Oint) 1 appl NS BID [facility] Stop: 06/04/17 17:01 Last Admin: 06/01/17 17:40 Dose: 1 appl Ondansetron HCl (Zofran Odt) 4 mg PO Q6HR PRN PRN Reason: Nausea Stop: 07/27/17 20:50 Last Admin: 05/29/17 05:56 Dose: 4 mg Oxycodone/Acetaminophen (Percocet 5/325mg Oral Tab) 1 tab PO QID PRN PRN Reason: Pain (Moderate) Stop: 07/27/17 20:50 Last Admin: 05/30/17 22:52 Dose: 1 tab Pantoprazole Sodium (Protonix) 40 mg IVP BID [facility] Stop: 07/30/17 16:59 Last Admin: 06/01/17 09:00 Dose: 40 mg Zolpidem Tartrate (Ambien) 5 mg PO HS PRN PRN Reason: Insomnia Stop: 07/27/17 20:50 Last Admin: 05/30/17 23:20 Dose: 5 mg General: No acute distress HEENT: Atraumatic Cardiovascular: Regular rate, Normal S1, Normal S2 Abdomen: Bowel sounds - Procedures Procedures: Procedures Procedure Code Date BYPASS STOMACH TO JEJUNUM, OPEN APPROACH [id number] 05/28/17 DRAINAGE OF PERITONEAL CAVITY WITH DRAIN DEV, OPEN APPROACH [id number] 01/25/17 FUSION OF STOMACH AND BOWEL 72097 05/28/17 INSERT INFUSION DEV IN R INT JUGULAR VEIN, PERC [id number] 01/25/17 INSERTION OF INFUSION DEVICE INTO R ATRIUM, PERC APPROACH [id number] 01/25/17 INSPECTION OF GASTROINTESTINAL TRACT, OPEN APPROACH [id number] 01/25/17 REMOVAL OF GALLBLADDER 23444 01/25/17 REOPENING OF ABDOMEN 86034 01/25/17 REPAIR STOMACH, OPEN APPROACH [id number] 01/25/17 RESECTION OF GALLBLADDER, OPEN APPROACH [id number] 01/25/17 RESPIRATORY VENTILATION, 24-96 CONSECUTIVE HOURS [id number] 05/28/17 RESPIRATORY VENTILATION, LESS THAN 24 CONSECUTIVE HOURS [id number] 01/25/17 STOMACH SURGERY PROCEDURE 99606 01/25/17 VENT MGMT INPAT IN DAY 91793 01/25/17 Assessment/Plan - Problem List Patient Problems: All Active Problems H/O diabetes mellitus (Acute) Z86.39 H/O drug abuse (Acute) Z87.898 H/O: HTN (hypertension) (Acute) Z86.79 POSTCHOLECYSTECTOMY (Acute) UTI (urinary tract infection) (Acute) closeure og gastric perf (Acute) cplacement of new gj (Acute) h/o dementia (Acute) lysisi of adhesions (Acute) r/o sepsis (Acute) s/p surgery (Acute) septic shock (Acute) tachycardia (Acute) Nutritional Asmnt/Malnutr-PDOC - Dietary Evaluation Malnutrition Findings (Please click <Entered> for more info): Nutritional Asmnt/Malnutrition Start: 05/30/17 15: 01 Text: Status: Complete Freq: Document 05/30/17 15:01 [email or web address] (Rec: 05/30/17 15:47 [email or web address]) Nutritional Asmnt/Malnutrition Patient General Information Nutritional Screening High Risk Screening Diagnosis Abd pain, gastrocutaneous fistula, UTI, leukocytosis ( improved) Pertinent Medical Hx/Surgical Hx HTN, DM, cholecystectomy past January 2017 Subjective Information 71 year old female from SNF. Upper GI series today, RN stated possible surgeries pending. Pt was alert and pleasant, appeared anxious, aware of medical condition and TPN/nutrition plan of care. RD explained TPN again, pt has no further questions. Pt reported she has been on TPN since January 2017. Found SNF TPN order in transfer chart, noted under "dosing weight: 134.4lb," pt confirmed wt 130lb measured this month. Questionabled EMR weight, unable to obtain CBW due to bedscale not calibrated. Unable to compelte physical assessment due to heavy blankets. Pt report usual BM pattern once every 2-3 days, given laxative at SNF to promote BM every day. Current Diet Order/ Nutrition Support D25% AA4.25% at 40ml/hr with IL20% 200ml, providing 1359kcal, 40g protein Pertinent Medications Novolog, TPN, Morphine, Multivitamins, Zofran, Protonix, Nacl 0.9% Pertinent Labs 05/29: triglycerides 89 WNL 05/30: BUN 29H (improving), creatinine WNL, glucose 197H, total bilirubin WNL, A1c 6.5H Nutritional Hx/Data Height 1.73 m Height (Calculated Centimeters) 172.7 Current Weight (lbs) 66.678 kg Weight (Calculated Kilograms) 66.7 Weight (Calculated Grams) 79274.1 Usual body Weight (lbs) 130 [place] Body Weight 154 Weight Status Approriate GI Symptoms GI Symptoms Vomitting Cultural/Ethnic/[employer] Belief [facility]: Dextrose 288gm, AA96gm, IL 18g, 2010ml, providing 1525kcal. Skin Integrity/Comment: Asad Eid. message clerk: abdomen rash/fistula, otherwise skin intact. Estimated Nutritional Goals Calories/Kcals/Kg UBW 130lb/59.1kg Kcals Calculated 1478-1773kcal (25-30kcal/kg) Protein Calculated 59-83g (1-1.4g/kg) Fluid: ml Per MD Nutritional Problem 1. 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 Recommend TPN D19% AA5.5% at 50ml/hr with IL20% 250ml, providing 1539kcal, 66g protein. Dx DM, 50% of total kcal from dextrose. Carb load 2.6mg/kg/min (using SNF weight 134.4lb/61.1kg). Pt has been on TPN since January 2017. 2. Obtain CBW, bedscale inproperly calibrated during visit. Dosing weight 134.4lb noted under SNF TPN order. Pt stated UBW 130lb. Expected Outcomes/Goals Expected Outcomes/Goals 1. Pt to meet 100% of estimated nutritional needs on TPN with tolerance.
--- NOTE | 2017-06-02 14:52 | Progress Notes ---
DATE: 06/02/2017 PROBLEM LIST: 1. Postoperative respiratory failure. 2. Possibly chronic obstructive pulmonary disease. 3. Drug abuse. 4. Previous history of abdominal sepsis, question chronic obstructive sleep apnea syndrome. SYMPTOMS: Still okay. No specific new symptoms, breathing is okay and no respiratory distress, etc. PHYSICAL EXAMINATION: VITAL SIGNS: Temperature is 99 pulse is about 90, respirations 13, saturation 100% on face mask. NECK: Neck veins not visualized. CHEST: Shows occasional rhonchi with diminished air entry. HEART: Regular. ABDOMEN: Soft and nontender. LABORATORY DATA: White count is 15.4, hemoglobin 7.4. ABG, pO2 144 on 2 liters. Electrolytes are okay with BUN is 26, still slight abnormal LFTs. ASSESSMENT: The patient clinically tolerating extubation reasonably well, suspect underlying chronic obstructive pulmonary disease, possibly obstructive sleep apnea syndrome with multiple abdominal surgeries, fistulas, abscesses, etc., and history of drug abuse as well. PLANS AND SUGGESTIONS: We will continue current treatment. We will put in nasal cannula at daytime, BiPAP at nighttime and see how she does and go from there. JOB# [id number]
[2017-06-02] MEDS: TPN 10%-70% CUSTOM IV SCH (17:31)
[2017-06-02] MEDS: Linezolid 600mg/300mL 600 MG/300 ML BAG IV SCH ×2 (18:00→23:06)
[2017-06-03] MEDS: Morphine Sulfate 2 mg/mL 1mL Syr IVP PRN ×5 (00:45→21:03)
[2017-06-03] MEDS: Albuterol/Ipratropium Neb 3 ML AERS HHN SCH ×6 (02:26→23:16)
[2017-06-03] MEDS: Sodium Chloride 0.9% 1,000 ML IV SCH ×2 (04:38→14:22)
[2017-06-03] MEDS: Meropenem 1 GM in Sodium Chloride 0.9% 100 ML IV SCH ×3 (04:58→21:04)
[2017-06-03 05:00] LABS: % BASOPHILS 0.9 % (0.0-2.0); % EOSINOPHILS 1.3 % (0.0-5.0); % LYMPHOCYTES 11.5 % (20.0-50.0); % MONOCYTES 6.5 % (2.0-10.0); % NEUTROPHILS 79.8 % (40.0-80.0); HEMOGLOBIN 9.3 gm/dL (11.7-16.1); MEAN CELL VOLUME 89.6 fl (81-100); MEAN CORPUSCULAR HEMOGLOBIN 30.9 pg (27.0-31.0); MEAN CORPUSCULAR HGB CONC 34.5 pg (28.0-36.0); MEAN PLATELET VOLUME 8.1 fl; NEUTROPHILE ABSOLUTE 10.5 Th/cmm (1.8-8.0); PLATELET COUNT 228 Th/cmm (150-400); RED CELL DISTRIBUTION WIDTH 15.3 % (11.5-20.0)
[2017-06-03 05:21] LABS: ALB/GLOB RATIO 0.9 (1.0-1.8); ALKALINE PHOSPHATASE 222 U/L (34-104); ANION GAP 7.9 (7.0-16.0); BILIRUBIN,TOTAL 0.5 mg/dL (0.3-1.0); BUN - UREA NITROGEN 17 mg/dL (7-25); BUN/CREATININE RATIO 21.3; CALCIUM SERUM 8.1 mg/dL (8.6-10.3); CARBON DIOXIDE 25.9 mEq/L (21.0-31.0); CHLORIDE 106 mEq/L (98-107); CREATININE - SERUM 0.8 mg/dL (0.6-1.2); GLUCOSE 177 mg/dL (70-105); MAGNESIUM 1.3 mg/dL (1.9-2.7); SGOT 15 U/L (13-39); SGPT/ALT 101 U/L (7-52); SODIUM SERUM 137 mEq/L (136-145)
[2017-06-03 05:27] LABS: HEMATOCRIT 26.9 % (35.0-45.0)
[2017-06-03 05:30] LABS: POTASSIUM SERUM 2.8 mEq/L (3.5-5.1)
[2017-06-03 05:31] LABS: WHITE BLOOD COUNT 13.2 Th/cmm (4.8-10.8)
[2017-06-03] MEDS: KCL 20mEq/100mL Premix 20 MEQ/100 ML PIGGYBACK IV SCH ×4 (06:16→12:09)
[2017-06-03] MEDS: INSULIN ASPART SLIDING SCALE 100 UNITS/ML UNIT SUBQ SCH ×3 (06:32→17:54)
[2017-06-03] MEDS: Budesonide 0.5 Mg/2 mL Ud HHN SCH (06:38)
--- NOTE | 2017-06-03 09:39 | General Progress Note ---
Subjective - Review of Systems Service Date: 06/03/17 Events since last encounter: SANCHEZ drainage 35 cc serous on clear liquids, has NGT labs ok Objective - Results Result Diagrams: 06/03/17 04:45 06/03/17 04:45 Recent Labs: Laboratory Last Values WBC 13.2 Th/cmm (4.8-10.8) H 06/03/17 04:45 RBC 3.00 Mil/cmm (3.80-5.20) L 06/03/17 04:45 Hgb 9.3 gm/dL (11.7-16.1) L 06/03/17 04:45 Hct 26.9 % (35.0-45.0) L D 06/03/17 04:45 MCV 89.6 fl (81-100) 06/03/17 04:45 MCH 30.9 pg (27.0-31.0) 06/03/17 04:45 MCHC Differential 34.5 pg (28.0-36.0) 06/03/17 04:45 RDW 15.3 % (11.5-20.0) 06/03/17 04:45 Plt Count 228 Th/cmm (150-400) 06/03/17 04:45 MPV 8.1 fl 06/03/17 04:45 Neutrophils % 79.8 % (40.0-80.0) 06/03/17 04:45 Band Neutrophils % 2 % (0-10) 06/02/17 07:25 Lymphocytes % 11.5 % (20.0-50.0) L 06/03/17 04:45 Monocytes % 6.5 % (2.0-10.0) 06/03/17 04:45 Eosinophils % 1.3 % (0.0-5.0) 06/03/17 04:45 Basophils % 0.9 % (0.0-2.0) 06/03/17 04:45 Neutrophils (Manual) 82 % (40-80) H 06/02/17 07:25 Lymphocytes 10 % (20-50) L 06/02/17 07:25 Monocytes 6 % (2-10) 06/02/17 07:25 Platelet Estimate ADEQUATE (NORMAL) 06/02/17 07:25 Platelet Morphology NORMAL (NORMAL) 06/02/17 07:25 Anisocytosis 1+ 06/02/17 07:25 RBC Morph Micro Appear ABNORMAL (NORMAL) 06/02/17 07:25 PT 11.0 SECONDS (9.5-11.5) 05/31/17 05:25 INR 1.06 (0.5-1.4) 05/31/17 05:25 Specimen Source Arterial 06/02/17 09:51 Sample Site Right Radial 06/02/17 09:51 pH 7.39 (7.35-7.45) 06/02/17 09:51 pCO2 43.0 mmHg (35.0-45.0) 06/02/17 09:51 pO2 144.0 mmHg (80.0-100.0) H 06/02/17 09:51 HCO3 25.6 mEq/L (20.0-26.0) 06/02/17 09:51 Base Excess 0.8 mEq/L (-3.0-3.0) 06/02/17 09:51 O2 Saturation 99.0 % (92.0-100.0) 06/02/17 09:51 Luther Test PASS 06/02/17 09:51 Vent Rate 6 06/01/17 08:44 Inspired O2 28 06/02/17 09:51 Tidal Volume 450 06/01/17 08:44 PEEP 5 06/01/17 08:44 Pressure (ins/psv/peep) 15 06/01/17 08:44 Critical Value PW 06/02/17 09:51 Sodium 137 mEq/L (136-145) 06/03/17 04:45 Potassium 2.8 mEq/L (3.5-5.1) L* 06/03/17 04:45 Chloride 106 mEq/L (98-107) 06/03/17 04:45 Carbon Dioxide 25.9 mEq/L (21.0-31.0) 06/03/17 04:45 Anion Gap 7.9 (7.0-16.0) 06/03/17 04:45 BUN 17 mg/dL (7-25) 06/03/17 04:45 Creatinine 0.8 mg/dL (0.6-1.2) 06/03/17 04:45 Est GFR ( Amer) > 60.0 ml/min (>90) 06/03/17 04:45 Est GFR (Non-Af Amer) > 60.0 ml/min 06/03/17 04:45 BUN/Creatinine Ratio 21.3 06/03/17 04:45 Glucose 177 mg/dL (70-105) H 06/03/17 04:45 POC Glucose 170 MG/DL (70 - 105) H 06/03/17 06:24 Hemoglobin A1c % 6.5 % (4.0-6.0) H 05/30/17 06:16 Whole Bld Lactic Acid 1.25 mmol/L (0.60-1.99) 05/28/17 16:22 Calcium 8.1 mg/dL (8.6-10.3) L 06/03/17 04:45 Phosphorus 2.9 mg/dL (2.5-5.0) 06/03/17 04:45 Magnesium 1.3 mg/dL (1.9-2.7) L 06/03/17 04:45 Total Bilirubin 0.5 mg/dL (0.3-1.0) 06/03/17 04:45 AST 15 U/L (13-39) 06/03/17 04:45 ALT 101 U/L (7-52) H 06/03/17 04:45 Alkaline Phosphatase 222 U/L (34-104) H 06/03/17 04:45 Troponin I 0.01 ng/mL (0.01-0.05) 05/28/17 16:22 Total Protein 5.0 gm/dL (6.0-8.3) L 06/03/17 04:45 Albumin 2.3 gm/dL (3.7-5.3) L 06/03/17 04:45 Globulin 2.7 gm/dL 06/03/17 04:45 Albumin/Globulin Ratio 0.9 (1.0-1.8) L 06/03/17 04:45 Prealbumin 18 mg/dL (10-36) 05/31/17 05:25 Triglycerides 79 mg/dL (<150) 05/31/17 05:25 Cholesterol 103 mg/dL (<200) 05/31/17 05:25 LDL Cholesterol Direct 78 mg/dL (75-193) 05/29/17 06:35 HDL Cholesterol 23 mg/dL (23-92) 05/29/17 06:35 Amylase 60 U/L (29-103) 07/22/17 16:22 Lipase 33 U/L (11-82) 05/28/17 16:22 TSH 1.14 uIU/ml (0.34-5.60) 05/29/17 06:35 Urine Source CATH 05/28/17 19:00 Urine Color YELLOW 05/28/17 19:00 Urine Clarity HAZY (CLEAR) 05/28/17 19:00 Urine pH 6.5 05/28/17 19:00 Ur Specific [place] 1.015 (1.005-1.030) 05/28/17 19:00 Urine Protein TRACE mg/dL (NEGATIVE) 05/28/17 19:00 Urine Glucose (UA) NEGATIVE mg/dL (NEGATIVE) 05/28/17 19:00 Urine Ketones NEGATIVE mg/dL (NEGATIVE) 05/28/17 19:00 Urine Blood TRACE (NEGATIVE) 05/28/17 19:00 Urine Nitrate NEGATIVE (NEGATIVE) 05/28/17 19:00 Urine Bilirubin NEGATIVE (NEGATIVE) 05/28/17 19:00 Urine Urobilinogen 0.2 E.U./dL (0.2 - 1.0) 05/28/17 19:00 Ur Leukocyte Esterase SMALL (NEGATIVE) H 05/28/17 19:00 Urine RBC 2-5 /hpf (0-5) 05/28/17 19:00 Urine WBC 50-100 /hpf (0-5) H 05/28/17 19:00 Ur Epithelial Cells FEW /lpf (FEW) 05/28/17 19:00 Urine Bacteria 1+ /hpf (NONE SEEN) H 05/28/17 19:00 Urine Mucus FEW /lpf (FEW) 05/28/17 19:00 Blood Type O POSITIVE 06/02/17 05:22 Antibody Screen NEGATIVE 06/02/17 05:22 Crossmatch See Detail 06/02/17 05:22 - Physical Exam Vitals and I&O: Vital Signs Temp 98.5 F 06/03/17 04:00 Pulse 107 06/03/17 06:39 Resp 12 06/03/17 06:39 BP 138/60 06/03/17 06:00 Pulse Ox 100 06/03/17 06:39 Intake & Output 06/02/17 06/03/17 06/03/17 18:59 06:59 18:59 Intake Total 2700 3759.584 100 Output Total 1005 2035 Balance 1695 1724.584 100 Weight (lbs) 66.179 kg 66.769 kg Intake: Intake, IV Amount 1500 3759.584 100 Colistimethate 150 mg In 100 100 Sodium Chloride 0.9% 100 ml @ 100 mls/hr IV Q12HR [facility] Rx#:[id number] KCL 20mEq/100mL Premix 20 100 meq In 100 ml @ 50 mls/ hr IV Q2H [facility] Rx#: [id number] Linezolid 600mg/300mL 600 600 mg In 300 ml @ 300 mls/ hr IV Q12HR [facility] Rx#: [id number] Meropenem 1 gm In Sodium 200 200 Chloride 0.9% 100 ml @ 100 mls/hr IV Q8HR [facility] Rx #:[id number] Multivitamin Inj 10 ml In 1200 624.167 Dextrose 70% 490 ml In Amino Acids 10% 500 ml In Intralipids 20% 200 ml @ 50 mls/hr IV .Q24H [facility] Rx#:[id number] Sodium Chloride 0.9% 1, 2235.417 000 ml @ 125 mls/hr IV . Q8H [facility] Rx#:[id number] Oral 100 TPN/PPN 600 Blood Product 500 Output: Drainage 5 35 Left Lower Abdomen 5 35 Urine 1000 2000 Active Medications: Current Medications Albuterol/Ipratropium (Duoneb Neb) 3 ml HHN Q4HRT [facility] Stop: 07/30/17 18:59 Last Admin: 06/03/17 06:38 Dose: Not Given Budesonide (Pulmicort) 0.5 mg HHN BIDRT [facility] Stop: 07/30/17 18:59 Last Admin: 06/03/17 06:38 Dose: Not Given Clonidine HCl (Catapres) 0.2 mg PO DAILY [facility] Stop: 07/28/17 08:59 Last Admin: 06/02/17 09:00 Dose: Not Given Diltiazem HCl (Cardizem) 20 mg IVP Q3H PRN PRN Reason: HR => 120 bpm Stop: 07/30/17 21:14 Last Admin: 06/01/17 01:08 Dose: 20 mg Multivitamins/Minerals 10 ml/Dextrose/ Amino Acids/Electrolytes/ Fat Emulsion Intravenous 1,200 mls @ 50 mls/hr IV .Q24H [facility] Stop: 07/29/17 14:59 Last Infusion: 06/03/17 06:00 Dose: 50 mls/hr Linezolid (Zyvox) 600 mg in 300 mls @ 300 mls/hr IV Q12HR [facility] Stop: 07/30/17 20:59 Last Infusion: 06/03/17 00:06 Dose: Infused Meropenem 1 gm/ Sodium (Chloride) 100 mls @ 100 mls/hr IV Q8HR [facility] Stop: 07/30/17 15:59 Last Infusion: 06/03/17 06:02 Dose: Infused Colistimethate Sodium 150 mg/ (Sodium Chloride) 100 mls @ 100 mls/hr IV Q12HR [facility] Stop: 07/30/17 20:59 Last Infusion: 06/02/17 22:53 Dose: Infused Sodium Chloride (Nacl 0.9%) 1,000 mls @ 125 mls/hr IV .Q8H [facility] Stop: 07/31/17 07:29 Last Infusion: 06/03/17 06:31 Dose: 125 mls/hr Potassium Chloride (Potassium Chloride) 20 meq in 100 mls @ 50 mls/hr IV Q2H [facility] Stop: 06/03/17 14:06 Last Admin: 06/03/17 08:25 Dose: 50 mls/hr Magnesium Sulfate (Magnesium Sulfate Premix) 2 gm in 50 mls @ 25 mls/hr IV Q2H [facility] Stop: 06/03/17 12:29 Insulin Aspart (Novolog Insulin Sliding Scale) 0 units SUBQ ACHS [facility] PRN Reason: Protocol Stop: 07/31/17 07:29 Last Admin: 06/03/17 06:32 Dose: 2 units Lactobacillus Rhamnosus (Culturelle) 1 each PO DAILY [facility] Stop: 08/02/17 08:59 Lorazepam (Ativan) 1 mg IVP Q6HR PRN; Protocol PRN Reason: Anxiety Stop: 07/31/17 07:30 Miscellaneous (Tpn Per Pharmacy) 1 ea MC DAILY [facility] Stop: 07/28/17 08:59 Miscellaneous (Probiotic Screen) 1 ea MC PRN PRN PRN Reason: PROTOCOL Stop: 08/01/17 11:22 Morphine Sulfate (Morphine) 2 mg IVP Q4HR PRN PRN Reason: Abdominal Pain Stop: 07/30/17 14:36 Last Admin: 06/03/17 04:51 Dose: 2 mg Morphine Sulfate (Morphine) 2 mg IV Q3HR PRN PRN Reason: Severe Pain Stop: 07/30/17 17:08 Last Admin: 06/01/17 04:53 Dose: 2 mg Mupirocin (Bactroban Oint) 1 appl NS BID [facility] Stop: 06/04/17 17:01 Last Admin: 06/02/17 17:52 Dose: 1 appl Ondansetron HCl (Zofran Odt) 4 mg PO Q6HR PRN PRN Reason: Nausea Stop: 07/27/17 20:50 Last Admin: 05/29/17 05:56 Dose: 4 mg Oxycodone/Acetaminophen (Percocet 5/325mg Oral Tab) 1 tab PO QID PRN PRN Reason: Pain (Moderate) Stop: 07/27/17 20:50 Last Admin: 05/30/17 22:52 Dose: 1 tab Pantoprazole Sodium (Protonix) 40 mg IVP BID [facility] Stop: 07/30/17 16:59 Last Admin: 06/02/17 18:57 Dose: 40 mg Zolpidem Tartrate (Ambien) 5 mg PO HS PRN PRN Reason: Insomnia Stop: 07/27/17 20:50 Last Admin: 05/30/17 23:20 Dose: 5 mg General: No acute distress HEENT: Atraumatic Cardiovascular: Regular rate, Normal S1, Normal S2 Abdomen: Bowel sounds - Procedures Procedures: Procedures Procedure Code Date BYPASS STOMACH TO JEJUNUM, OPEN APPROACH [id number] 05/28/17 DRAINAGE OF PERITONEAL CAVITY WITH DRAIN DEV, OPEN APPROACH [id number] 01/25/17 FUSION OF STOMACH AND BOWEL 94725 05/28/17 INSERT INFUSION DEV IN R INT JUGULAR VEIN, PERC [id number] 01/25/17 INSERTION OF INFUSION DEVICE INTO R ATRIUM, PERC APPROACH [id number] 01/25/17 INSPECTION OF GASTROINTESTINAL TRACT, OPEN APPROACH [id number] 01/25/17 REMOVAL OF GALLBLADDER 64082 01/25/17 REOPENING OF ABDOMEN 91981 01/25/17 REPAIR STOMACH, OPEN APPROACH [id number] 01/25/17 RESECTION OF GALLBLADDER, OPEN APPROACH [id number] 01/25/17 RESPIRATORY VENTILATION, 24-96 CONSECUTIVE HOURS [id number] 05/28/17 RESPIRATORY VENTILATION, LESS THAN 24 CONSECUTIVE HOURS [id number] 01/25/17 STOMACH SURGERY PROCEDURE 72507 01/25/17 VENT MGMT INPAT INIT DAY 44408 01/25/17 Assessment/Plan - Problem List Patient Problems: All Active Problems H/O diabetes mellitus (Acute) Z86.39 H/O drug abuse (Acute) Z87.898 H/O: HTN (hypertension) (Acute) Z86.79 POSTCHOLECYSTECTOMY (Acute) UTI (urinary tract infection) (Acute) closeure og gastric perf (Acute) cplacement of new gj (Acute) h/o dementia (Acute) lysisi of adhesions (Acute) r/o sepsis (Acute) s/p surgery (Acute) septic shock (Acute) tachycardia (Acute) Nutritional Asmnt/Malnutr-PDOC - Dietary Evaluation Malnutrition Findings (Please click <Entered> for more info): Nutritional Asmnt/Malnutrition Start: 05/30/17 15: 01 Text: Status: Complete Freq: Document 05/30/17 15:01 GSUN (Rec: 05/30/17 15:47 [email or web address] [id number]) Nutritional Asmnt/Malnutrition Patient General Information Nutritional Screening High Risk Screening Diagnosis Abd pain, gastrocutaneous fistula, UTI, leukocytosis ( improved) Pertinent Medical Hx/Surgical Hx HTN, DM, cholecystectomy past January 2017 Subjective Information 71 year old female from SNF. Upper GI series today, RN stated possible surgeries pending. Pt was alert and pleasant, appeared anxious, aware of medical condition and TPN/nutrition plan of care. RD explained TPN again, pt has no further questions. Pt reported she has been on TPN since January 2017. Found SNF TPN order in transfer chart, noted under "dosing weight: 134.4lb," pt confirmed wt 130lb measured this month. Questionabled EMR weight, unable to obtain CBW due to bedscale not calibrated. Unable to compelte physical assessment due to heavy blankets. Pt report usual BM pattern once every 2-3 days, given laxative at SNF to promote BM every day. Current Diet Order/ Nutrition Support D25% AA4.25% at 40ml/hr with IL20% 200ml, providing 1359kcal, 40g protein Pertinent Medications Novolog, TPN, Morphine, Multivitamins, Zofran, Protonix, Nacl 0.9% Pertinent Labs 05/29: triglycerides 89 WNL 05/30: BUN 29H (improving), creatinine WNL, glucose 197H, total bilirubin WNL, A1c 6.5H Nutritional Hx/Data Height 1.73 m Height (Calculated Centimeters) 172.7 Current Weight (lbs) 66.678 kg Weight (Calculated Kilograms) 66.7 Weight (Calculated Grams) 36925.1 Usual body Weight (lbs) 130 [place] Body Weight 154 Weight Status Approriate GI Symptoms GI Symptoms Vomitting Cultural/Ethnic/Congregational Belief [facility]: Dextrose 288gm, AA96gm, IL 18g, 2010ml, providing 1525kcal. Skin Integrity/Comment: Asad Eid. safety investigator/cause analyst: abdomen rash/fistula, otherwise skin intact. Estimated Nutritional Goals Calories/Kcals/Kg UBW 130lb/59.1kg Kcals Calculated 1478-1773kcal (25-30kcal/kg) Protein Calculated 59-83g (1-1.4g/kg) Fluid: ml Per MD Nutritional Problem 1. 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 Recommend TPN D19% AA5.5% at 50ml/hr with IL20% 250ml, providing 1539kcal, 66g protein. Dx DM, 50% of total kcal from dextrose. Carb load 2.6mg/kg/min (using SNF weight 134.4lb/61.1kg). Pt has been on TPN since January 2017. 2. Obtain CBW, bedstj inproperly calibrated during visit. Dosing weight 134.4lb noted under SNF TPN order. Pt stated UBW 130lb. Expected Outcomes/Goals Expected Outcomes/Goals 1. Pt to meet 100% of estimated nutritional needs on TPN with tolerance.
[2017-06-03] MEDS ORDERED: Potassium Chloride 40 MEQ, Lidocaine 1% 20mL Vial 25 MG in Sodium Chloride 0.9% 250 ML IV ONE (09:40)
[2017-06-03] MEDS: Lactobacillus Rhamnosus 10 Billion CFU Capsule PO SCH (09:59)
[2017-06-03] MEDS: Mag Sulfate 2gm/50mL Premix 2 GM/50 ML BAG IV SCH ×2 (10:25→18:00)
--- NOTE | 2017-06-03 11:12 | General Progress Note ---
Subjective - Review of Systems Service Date: 06/03/17 Subjective: awake, c/o throat pain, on ngt and tpn Objective - Results Result Diagrams: 06/03/17 04:45 06/03/17 04:45 Recent Labs: Laboratory Last Values WBC 13.2 Th/cmm (4.8-10.8) H 06/03/17 04:45 RBC 3.00 Mil/cmm (3.80-5.20) L 06/03/17 04:45 Hgb 9.3 gm/dL (11.7-16.1) L 06/03/17 04:45 Hct 26.9 % (35.0-45.0) L D 06/03/17 04:45 MCV 89.6 fl (81-100) 06/03/17 04:45 MCH 30.9 pg (27.0-31.0) 06/03/17 04:45 MCHC Differential 34.5 pg (28.0-36.0) 06/03/17 04:45 RDW 15.3 % (11.5-20.0) 06/03/17 04:45 Plt Count 228 Th/cmm (150-400) 06/03/17 04:45 MPV 8.1 fl 06/03/17 04:45 Neutrophils % 79.8 % (40.0-80.0) 06/03/17 04:45 Band Neutrophils % 2 % (0-10) 06/02/17 07:25 Lymphocytes % 11.5 % (20.0-50.0) L 06/03/17 04:45 Monocytes % 6.5 % (2.0-10.0) 06/03/17 04:45 Eosinophils % 1.3 % (0.0-5.0) 06/03/17 04:45 Basophils % 0.9 % (0.0-2.0) 06/03/17 04:45 Neutrophils (Manual) 82 % (40-80) H 06/02/17 07:25 Lymphocytes 10 % (20-50) L 06/02/17 07:25 Monocytes 6 % (2-10) 06/02/17 07:25 Platelet Estimate ADEQUATE (NORMAL) 06/02/17 07:25 Platelet Morphology NORMAL (NORMAL) 06/02/17 07:25 Anisocytosis 1+ 06/02/17 07:25 RBC Morph Micro Appear ABNORMAL (NORMAL) 06/02/17 07:25 PT 11.0 SECONDS (9.5-11.5) 05/31/17 05:25 INR 1.06 (0.5-1.4) 05/31/17 05:25 Specimen Source Arterial 06/02/17 09:51 Sample Site Right Radial 06/02/17 09:51 pH 7.39 (7.35-7.45) 06/02/17 09:51 pCO2 43.0 mmHg (35.0-45.0) 06/02/17 09:51 pO2 144.0 mmHg (80.0-100.0) H 06/02/17 09:51 HCO3 25.6 mEq/L (20.0-26.0) 06/02/17 09:51 Base Excess 0.8 mEq/L (-3.0-3.0) 06/02/17 09:51 O2 Saturation 99.0 % (92.0-100.0) 06/02/17 09:51 Luther Test PASS 06/02/17 09:51 Vent Rate 6 06/01/17 08:44 Inspired O2 28 06/02/17 09:51 Tidal Volume 450 06/01/17 08:44 PEEP 5 06/01/17 08:44 Pressure (ins/psv/peep) 15 06/01/17 08:44 Critical Value PW 06/02/17 09:51 Sodium 137 mEq/L (136-145) 06/03/17 04:45 Potassium 2.8 mEq/L (3.5-5.1) L* 06/03/17 04:45 Chloride 106 mEq/L (98-107) 06/03/17 04:45 Carbon Dioxide 25.9 mEq/L (21.0-31.0) 06/03/17 04:45 Anion Gap 7.9 (7.0-16.0) 06/03/17 04:45 BUN 17 mg/dL (7-25) 06/03/17 04:45 Creatinine 0.8 mg/dL (0.6-1.2) 06/03/17 04:45 Est GFR ( Amer) > 60.0 ml/min (>90) 06/03/17 04:45 Est GFR (Non-Af Amer) > 60.0 ml/min 06/03/17 04:45 BUN/Creatinine Ratio 21.3 06/03/17 04:45 Glucose 177 mg/dL (70-105) H 06/03/17 04:45 POC Glucose 170 MG/DL (70 - 105) H 06/03/17 06:24 Hemoglobin A1c % 6.5 % (4.0-6.0) H 05/30/17 06:16 Whole Bld Lactic Acid 1.25 mmol/L (0.60-1.99) 05/28/17 16:22 Calcium 8.1 mg/dL (8.6-10.3) L 06/03/17 04:45 Phosphorus 2.9 mg/dL (2.5-5.0) 06/03/17 04:45 Magnesium 1.3 mg/dL (1.9-2.7) L 06/03/17 04:45 Total Bilirubin 0.5 mg/dL (0.3-1.0) 06/03/17 04:45 AST 15 U/L (13-39) 06/03/17 04:45 ALT 101 U/L (7-52) H 06/03/17 04:45 Alkaline Phosphatase 222 U/L (34-104) H 06/03/17 04:45 Troponin I 0.01 ng/mL (0.01-0.05) 05/28/17 16:22 Total Protein 5.0 gm/dL (6.0-8.3) L 06/03/17 04:45 Albumin 2.3 gm/dL (3.7-5.3) L 06/03/17 04:45 Globulin 2.7 gm/dL 06/03/17 04:45 Albumin/Globulin Ratio 0.9 (1.0-1.8) L 06/03/17 04:45 Prealbumin 18 mg/dL (10-36) 05/31/17 05:25 Triglycerides 79 mg/dL (<150) 05/31/17 05:25 Cholesterol 103 mg/dL (<200) 05/31/17 05:25 LDL Cholesterol Direct 78 mg/dL (75-193) 05/29/17 06:35 HDL Cholesterol 23 mg/dL (23-92) 05/29/17 06:35 Amylase 60 U/L (29-103) 05/28/17 16:22 Lipase 33 U/L (11-82) 05/28/17 16:22 TSH 1.14 uIU/ml (0.34-5.60) 05/29/17 06:35 Urine Source CATH 05/28/17 19:00 Urine Color YELLOW 05/28/17 19:00 Urine Clarity HAZY (CLEAR) 05/28/17 19:00 Urine pH 6.5 05/28/17 19:00 Ur Specific [place] 1.015 (1.005-1.030) 05/28/17 19:00 Urine Protein TRACE mg/dL (NEGATIVE) 05/28/17 19:00 Urine Glucose (UA) NEGATIVE mg/dL (NEGATIVE) 05/28/17 19:00 Urine Ketones NEGATIVE mg/dL (NEGATIVE) 05/28/17 19:00 Urine Blood TRACE (NEGATIVE) 05/28/17 19:00 Urine Nitrate NEGATIVE (NEGATIVE) 05/28/17 19:00 Urine Bilirubin NEGATIVE (NEGATIVE) 05/28/17 19:00 Urine Urobilinogen 0.2 E.U./dL (0.2 - 1.0) 05/28/17 19:00 Ur Leukocyte Esterase SMALL (NEGATIVE) H 05/28/17 19:00 Urine RBC 2-5 /hpf (0-5) 05/28/17 19:00 Urine WBC 50-100 /hpf (0-5) H 05/28/17 19:00 Ur Epithelial Cells FEW /lpf (FEW) 05/28/17 19:00 Urine Bacteria 1+ /hpf (NONE SEEN) H 05/28/17 19:00 Urine Mucus FEW /lpf (FEW) 05/28/17 19:00 Blood Type O POSITIVE 06/02/17 05:22 Antibody Screen NEGATIVE 06/02/17 05:22 Crossmatch See Detail 06/02/17 05:22 - Physical Exam Vitals and I&O: Vital Signs Temp 98.5 F 06/03/17 08:00 Pulse 97 06/03/17 09:59 Resp 15 06/03/17 08:00 BP 116/65 06/03/17 08:00 Pulse Ox 98 06/03/17 10:00 Intake & Output 06/02/17 06/03/17 06/03/17 18:59 06:59 18:59 Intake Total 2700 3759.584 185.833 Output Total 1005 2035 Balance 1695 1724.584 185.833 Weight (lbs) 66.179 kg 66.769 kg Intake: Intake, IV Amount 1500 3759.584 185.833 Colistimethate 150 mg In 100 100 Sodium Chloride 0.9% 100 ml @ 100 mls/hr IV Q12HR [facility] Rx#:[id number] KCL 20mEq/100mL Premix 20 185.833 meq In 100 ml @ 50 mls/ hr IV Q2H [facility] Rx#: [id number] Linezolid 600mg/300mL 600 600 mg In 300 ml @ 300 mls/ hr IV Q12HR [facility] Rx#: [id number] Meropenem 1 gm In Sodium 200 200 Chloride 0.9% 100 ml @ 100 mls/hr IV Q8HR [facility] Rx #:[id number] Multivitamin Inj 10 ml In 1200 624.167 Dextrose 70% 490 ml In Amino Acids 10% 500 ml In Intralipids 20% 200 ml @ 50 mls/hr IV .Q24H [facility] Rx#:[id number] Sodium Chloride 0.9% 1, 2235.417 000 ml @ 125 mls/hr IV . Q8H [facility] Rx#:[id number] Oral 100 TPN/PPN 600 Blood Product 500 Output: Drainage 5 35 Left Lower Abdomen 5 35 Urine 1000 2000 Active Medications: Current Medications Albuterol/Ipratropium (Duoneb Neb) 3 ml HHN Q4HRT [facility] Stop: 07/30/17 18:59 Last Admin: 06/03/17 06:38 Dose: Not Given Budesonide (Pulmicort) 0.5 mg HHN BIDRT [facility] Stop: 07/30/17 18:59 Last Admin: 06/03/17 06:38 Dose: Not Given Clonidine HCl (Catapres) 0.2 mg PO DAILY [facility] Stop: 07/28/17 08:59 Last Admin: 06/03/17 09:59 Dose: 0.2 mg Diltiazem HCl (Cardizem) 20 mg IVP Q3H PRN PRN Reason: HR => 120 bpm Stop: 07/30/17 21:14 Last Admin: 06/01/17 01:08 Dose: 20 mg Multivitamins/Minerals 10 ml/Dextrose/ Amino Acids/Electrolytes/ Fat Emulsion Intravenous 1,200 mls @ 50 mls/hr IV .Q24H [facility] Stop: 07/29/17 14:59 Last Infusion: 06/03/17 06:00 Dose: 50 mls/hr Linezolid (Zyvox) 600 mg in 300 mls @ 300 mls/hr IV Q12HR [facility] Stop: 07/30/17 20:59 Last Infusion: 06/03/17 00:06 Dose: Infused Meropenem 1 gm/ Sodium (Chloride) 100 mls @ 100 mls/hr IV Q8HR [facility] Stop: 07/30/17 15:59 Last Infusion: 06/03/17 06:02 Dose: Infused Colistimethate Sodium 150 mg/ (Sodium Chloride) 100 mls @ 100 mls/hr IV Q12HR [facility] Stop: 07/30/17 20:59 Last Infusion: 06/02/17 22:53 Dose: Infused Sodium Chloride (Nacl 0.9%) 1,000 mls @ 125 mls/hr IV .Q8H [facility] Stop: 07/31/17 07:29 Last Infusion: 06/03/17 06:31 Dose: 125 mls/hr Potassium Chloride (Potassium Chloride) 20 meq in 100 mls @ 50 mls/hr IV Q2H [facility] Stop: 06/03/17 14:06 Last Admin: 06/03/17 10:08 Dose: 50 mls/hr Magnesium Sulfate (Magnesium Sulfate Premix) 2 gm in 50 mls @ 25 mls/hr IV Q2H [facility] Stop: 06/03/17 12:29 Last Admin: 06/03/17 10:25 Dose: 25 mls/hr Insulin Aspart (Novolog Insulin Sliding Scale) 0 units SUBQ ACHS [facility] PRN Reason: Protocol Stop: 07/31/17 07:29 Last Admin: 06/03/17 06:32 Dose: 2 units Lactobacillus Rhamnosus (Culturelle) 1 each PO DAILY [facility] Stop: 08/02/17 08:59 Last Admin: 06/03/17 09:59 Dose: 1 each Lorazepam (Ativan) 1 mg IVP Q6HR PRN; Protocol PRN Reason: Anxiety Stop: 07/31/17 07:30 Miscellaneous (Tpn Per Pharmacy) 1 ea MC DAILY [facility] Stop: 07/28/17 08:59 Miscellaneous (Probiotic Screen) 1 ea PRN PRN PRN Reason: PROTOCOL Stop: 08/01/17 11:22 Morphine Sulfate (Morphine) 2 mg IVP Q4HR PRN PRN Reason: Abdominal Pain Stop: 07/30/17 14:36 Last Admin: 06/03/17 10:08 Dose: 2 mg Morphine Sulfate (Morphine) 2 mg IV Q3HR PRN PRN Reason: Severe Pain Stop: 07/30/17 17:08 Last Admin: 06/01/17 04:53 Dose: 2 mg Mupirocin (Bactroban Oint) 1 appl NS BID [facility] Stop: 06/04/17 17:01 Last Admin: 06/03/17 10:23 Dose: 1 appl Ondansetron HCl (Zofran Odt) 4 mg PO Q6HR PRN PRN Reason: Nausea Stop: 07/27/17 20:50 Last Admin: 05/29/17 05:56 Dose: 4 mg Oxycodone/Acetaminophen (Percocet 5/325mg Oral Tab) 1 tab PO QID PRN PRN Reason: Pain (Moderate) Stop: 07/27/17 20:50 Last Admin: 05/30/17 22:52 Dose: 1 tab Pantoprazole Sodium (Protonix) 40 mg IVP BID [facility] Stop: 07/30/17 16:59 Last Admin: 06/03/17 09:59 Dose: 40 mg Zolpidem Tartrate (Ambien) 5 mg PO HS PRN PRN Reason: Insomnia Stop: 07/27/17 20:50 Last Admin: 05/30/17 23:20 Dose: 5 mg General: No acute distress HEENT: Atraumatic Cardiovascular: Regular rate, Normal S1, Normal S2 Abdomen: Bowel sounds, Soft Neurological: Other (weak) - Procedures Procedures: Procedures Procedure Code Date BYPASS STOMACH TO JEJUNUM, OPEN APPROACH [id number] 05/28/17 DRAINAGE OF PERITONEAL CAVITY WITH DRAIN DEV, OPEN APPROACH [id number] 01/25/17 FUSION OF STOMACH AND BOWEL [id number] 05/28/17 INSERT INFUSION DEV IN R INT JUGULAR VEIN, PERC [id number] 01/25/17 INSERTION OF INFUSION DEVICE INTO R ATRIUM, PERC APPROACH [id number] 01/25/17 INSPECTION OF GASTROINTESTINAL TRACT, OPEN APPROACH [id number] 01/25/17 REMOVAL OF GALLBLADDER [id number] 01/25/17 REOPENING OF ABDOMEN 05039 01/25/17 REPAIR STOMACH, OPEN APPROACH [id number] 01/25/17 RESECTION OF GALLBLADDER, OPEN APPROACH [id number] 01/25/17 RESPIRATORY VENTILATION, 24-96 CONSECUTIVE HOURS [id number] 05/28/17 RESPIRATORY VENTILATION, LESS THAN 24 CONSECUTIVE HOURS [id number] 01/25/17 STOMACH SURGERY PROCEDURE 15999 01/25/17 VENT MGMT INPAT INIT DAY 96718 01/25/17 Assessment/Plan - Problem List Patient Problems: All Active Problems H/O diabetes mellitus (Acute) Z86.39 H/O drug abuse (Acute) Z87.898 H/O: HTN (hypertension) (Acute) Z86.79 POSTCHOLECYSTECTOMY (Acute) UTI (urinary tract infection) (Acute) closeure og gastric perf (Acute) cplacement of new gj (Acute) h/o dementia (Acute) lysisi of adhesions (Acute) r/o sepsis (Acute) s/p surgery (Acute) septic shock (Acute) tachycardia (Acute) - Assessment Assessment: epigastric pain gastritis ostomy hole with discharge s/p cholecystectomy - Plan Plan: continue tpn empiric ivabx icu monitoring am labs monitor glucose cpm Nutritional Asmnt/Malnutr-PDOC - Dietary Evaluation Malnutrition Findings (Please click <Entered> for more info): Nutritional Asmnt/Malnutrition Start: 05/30/17 15: 01 Text: Status: Complete Freq: Document 05/30/17 15:01 GSUN (Rec: 05/30/17 15:47 [email or web address] [id number]) Nutritional Asmnt/Malnutrition Patient General Information Nutritional Screening High Risk Screening Diagnosis Abd pain, gastrocutaneous fistula, UTI, leukocytosis ( improved) Pertinent Medical Hx/Surgical Hx HTN, DM, cholecystectomy past January 2017 Subjective Information 71 year old female from SNF. Upper GI series today, RN stated possible surgeries pending. Pt was alert and pleasant, appeared anxious, aware of medical condition and TPN/nutrition plan of care. RD explained TPN again, pt has no further questions. Pt reported she has been on TPN since January 2017. Found SNF TPN order in transfer chart, noted under "dosing weight: 134.4lb," pt confirmed wt 130lb measured this month. Questionabled EMR weight, unable to obtain CBW due to bedscale not calibrated. Unable to compelte physical assessment due to heavy blankets. Pt report usual BM pattern once every 2-3 days, given laxative at SNF to promote BM every day. Current Diet Order/ Nutrition Support D25% AA4.25% at 40ml/hr with IL20% 200ml, providing 1359kcal, 40g protein Pertinent Medications Novolog, TPN, Morphine, Multivitamins, Zofran, Protonix, Nacl 0.9% Pertinent Labs 05/29: triglycerides 89 WNL 05/30: BUN 29H (improving), creatinine WNL, glucose 197H, total bilirubin WNL, A1c 6.5H Nutritional Hx/Data Height 1.73 m Height (Calculated Centimeters) 172.7 Current Weight (lbs) 66.678 kg Weight (Calculated Kilograms) 66.7 Weight (Calculated Grams) 53041.1 Usual body Weight (lbs) 130 [place] Body Weight 154 Weight Status Approriate GI Symptoms GI Symptoms Vomitting Cultural/Ethnic/[employer] [facility]: Dextrose 288gm, AA96gm, IL 18g, 2010ml, providing 1525kcal. Skin Integrity/Comment: Asad Eid. 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 Estimated Nutritional Goals Calories/Kcals/Kg UBW 130lb/59.1kg Kcals Calculated 1478-1773kcal (25-30kcal/kg) Protein Calculated 59-83g (1-1.4g/kg) Fluid: ml Per MD Nutritional Problem 1. 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 Recommend TPN D19% AA5.5% at 50ml/hr with IL20% 250ml, providing 1539kcal, 66g protein. Dx DM, 50% of total kcal from dextrose. Carb load 2.6mg/kg/min (using SNF weight 134.4lb/61.1kg). Pt has been on TPN since January 2017. 2. Obtain CBW, bedscale inproperly calibrated during visit. Dosing weight 134.4lb noted under SNF TPN order. Pt stated UBW 130lb. Expected Outcomes/Goals Expected Outcomes/Goals 1. Pt to meet 100% of estimated nutritional needs on TPN with tolerance.
[2017-06-03] MEDS: TPN 10%-70% CUSTOM IV SCH (17:57)
[2017-06-03] MEDS: Linezolid 600mg/300mL 600 MG/300 ML BAG IV SCH ×2 (21:00→21:13)
--- NOTE | 2017-06-04 00:42 | Progress Notes ---
DATE: 06/03/2017 PROBLEM LIST: 1.Respiratory failure, status post surgery, improving off mechanical ventilation. 2.Question COPD, ____ oxygen dependent. 3.Suspect obstructive sleep apnea syndrome. The patient is okay. Complains of sore throat. No specific ____. Breathing is okay. PHYSICAL EXAMINATION: VITAL SIGNS: T-max 98.5 and blood pressure 116/95, saturation is 99% on 1 liter of oxygen. NECK: Veins not visualized. CHEST: Shows diminished air entry with occasional rhonchi. HEART: Regular. ABDOMEN: Slightly tender with SANCHEZ drainage. LABORATORY DATA: The patient's WBC is 13.2, hemoglobin 9.3. Potassium is 2.8 and there is slight ____ of LFT, exact etiology not clear, secondary to infections pathology and/or possibly TPN. PLANS AND SUGGESTIONS: We will go ahead and continue current treatment. Follow up lab and also liver profile and go from there. JOB# [id number]
[2017-06-04] MEDS: Morphine Sulfate 2 mg/mL 1mL Syr IVP PRN ×5 (01:18→21:17)
[2017-06-04] MEDS: INSULIN ASPART SLIDING SCALE 100 UNITS/ML UNIT SUBQ SCH ×5 (01:19→21:41)
[2017-06-04] MEDS: Albuterol/Ipratropium Neb 3 ML AERS HHN SCH ×6 (03:00→22:55)
[2017-06-04] MEDS: Sodium Chloride 0.9% 1,000 ML IV SCH (03:18)
[2017-06-04] MEDS: Meropenem 1 GM in Sodium Chloride 0.9% 100 ML IV SCH ×2 (05:04→15:05)
[2017-06-04 05:24] LABS: % BASOPHILS 0.7 % (0.0-2.0); % EOSINOPHILS 4.6 % (0.0-5.0); % LYMPHOCYTES 16.9 % (20.0-50.0); % NEUTROPHILS 69.8 % (40.0-80.0); HEMATOCRIT 28.8 % (35.0-45.0); HEMOGLOBIN 9.8 gm/dL (11.7-16.1); MEAN CELL VOLUME 91.9 fl (81-100); MEAN CORPUSCULAR HEMOGLOBIN 31.1 pg (27.0-31.0); MEAN CORPUSCULAR HGB CONC 33.8 pg (28.0-36.0); MEAN PLATELET VOLUME 8.5 fl; NEUTROPHILE ABSOLUTE 5.8 Th/cmm (1.8-8.0); PLATELET COUNT 243 Th/cmm (150-400); RED BLOOD COUNT 3.14 Mil/cmm (3.80-5.20); RED CELL DISTRIBUTION WIDTH 15.1 % (11.5-20.0)
[2017-06-04 05:44] LABS: ANION GAP 7.1 (7.0-16.0); BUN - UREA NITROGEN 15 mg/dL (7-25); BUN/CREATININE RATIO 18.8; CALCIUM SERUM 8.1 mg/dL (8.6-10.3); CARBON DIOXIDE 27.8 mEq/L (21.0-31.0); CHLORIDE 103 mEq/L (98-107); CREATININE - SERUM 0.8 mg/dL (0.6-1.2); GLUCOSE 181 mg/dL (70-105); MAGNESIUM 1.5 mg/dL (1.9-2.7); PHOSPHOROUS 2.8 mg/dL (2.5-5.0); SODIUM SERUM 135 mEq/L (136-145)
[2017-06-04 06:04] LABS: POTASSIUM SERUM 2.9 mEq/L (3.5-5.1)
[2017-06-04 06:08] LABS: WHITE BLOOD COUNT 8.4 Th/cmm (4.8-10.8)
[2017-06-04] MEDS: Budesonide 0.5 Mg/2 mL Ud HHN SCH ×2 (08:07→20:01)
--- NOTE | 2017-06-04 09:15 | Diagnostic Imaging Report ---
CHEST X-RAY: AP view INDICATION: Shortness of breath COMPARISON: 06/02/2017 FINDINGS: Support devices are stable. Mild chronic lung changes are noted with no focal consolidation or effusions. Heart size is normal. Old left rib are noted. No evidence of pneumothorax. IMPRESSION: No focal airspace consolidation identified.
[2017-06-04] MEDS: KCL 20mEq/100mL Premix 20 MEQ/100 ML PIGGYBACK IV SCH ×2 (09:29→11:18)
--- NOTE | 2017-06-04 11:10 | General Progress Note ---
Subjective - Review of Systems Service Date: 06/04/17 Events since last encounter: 30 cc SANCHEZ drainage tolerating liquids - NGT still in place Objective - Results Result Diagrams: 06/04/17 04:39 06/04/17 04:39 Recent Labs: Laboratory Last Values WBC 8.4 Th/cmm (4.8-10.8) D 06/04/17 04:39 RBC 3.14 Mil/cmm (3.80-5.20) L 06/04/17 04:39 Hgb 9.8 gm/dL (11.7-16.1) L 06/04/17 04:39 Hct 28.8 % (35.0-45.0) L 06/04/17 04:39 MCV 91.9 fl (81-100) 06/04/17 04:39 MCH 31.1 pg (27.0-31.0) H 06/04/17 04:39 MCHC Differential 33.8 pg (28.0-36.0) 06/04/17 04:39 RDW 15.1 % (11.5-20.0) 06/04/17 04:39 Plt Count 243 Th/cmm (150-400) 06/04/17 04:39 MPV 8.5 fl 06/04/17 04:39 Neutrophils % 69.8 % (40.0-80.0) 06/04/17 04:39 Band Neutrophils % 2 % (0-10) 06/02/17 07:25 Lymphocytes % 16.9 % (20.0-50.0) L 06/04/17 04:39 Monocytes % 8.0 % (2.0-10.0) 06/04/17 04:39 Eosinophils % 4.6 % (0.0-5.0) 06/04/17 04:39 Basophils % 0.7 % (0.0-2.0) 06/04/17 04:39 Neutrophils (Manual) 82 % (40-80) H 06/02/17 07:25 Lymphocytes 10 % (20-50) L 06/02/17 07:25 Monocytes 6 % (2-10) 06/02/17 07:25 Platelet Estimate ADEQUATE (NORMAL) 06/02/17 07:25 Platelet Morphology NORMAL (NORMAL) 06/02/17 07:25 Anisocytosis 1+ 06/02/17 07:25 RBC Morph Micro Appear ABNORMAL (NORMAL) 06/02/17 07:25 PT 11.0 SECONDS (9.5-11.5) 05/31/17 05:25 INR 1.06 (0.5-1.4) 05/31/17 05:25 Specimen Source Arterial 06/02/17 09:51 Sample Site Right Radial 06/02/17 09:51 pH 7.39 (7.35-7.45) 06/02/17 09:51 pCO2 43.0 mmHg (35.0-45.0) 06/02/17 09:51 pO2 144.0 mmHg (80.0-100.0) H 06/02/17 09:51 HCO3 25.6 mEq/L (20.0-26.0) 06/02/17 09:51 Base Excess 0.8 mEq/L (-3.0-3.0) 06/02/17 09:51 O2 Saturation 99.0 % (92.0-100.0) 06/02/17 09:51 Luther Test PASS 06/02/17 09:51 Vent Rate 6 06/01/17 08:44 Inspired O2 28 06/02/17 09:51 Tidal Volume 450 06/01/17 08:44 PEEP 5 06/01/17 08:44 Pressure (ins/psv/peep) 15 06/01/17 08:44 Critical Value PW 06/02/17 09:51 Sodium 135 mEq/L (136-145) L 06/04/17 04:39 Potassium 2.9 mEq/L (3.5-5.1) L* 06/04/17 04:39 Chloride 103 mEq/L (98-107) 06/04/17 04:39 Carbon Dioxide 27.8 mEq/L (21.0-31.0) 06/04/17 04:39 Anion Gap 7.1 (7.0-16.0) 06/04/17 04:39 BUN 15 mg/dL (7-25) 06/04/17 04:39 Creatinine 0.8 mg/dL (0.6-1.2) 06/04/17 04:39 Est GFR ( Amer) > 60.0 ml/min (>90) 06/04/17 04:39 Est GFR (Non-Af Amer) > 60.0 ml/min 06/04/17 04:39 BUN/Creatinine Ratio 18.8 06/04/17 04:39 Glucose 181 mg/dL (70-105) H 06/04/17 04:39 POC Glucose 221 MG/DL (70 - 105) H 06/03/17 17:50 Hemoglobin A1c % 6.5 % (4.0-6.0) H 05/30/17 06:16 Whole Bld Lactic Acid 1.25 mmol/L (0.60-1.99) 05/28/17 16:22 Calcium 8.1 mg/dL (8.6-10.3) L 06/04/17 04:39 Phosphorus 2.8 mg/dL (2.5-5.0) 06/04/17 04:39 Magnesium 1.5 mg/dL (1.9-2.7) L 06/04/17 04:39 Total Bilirubin 0.5 mg/dL (0.3-1.0) 06/03/17 04:45 AST 15 U/L (13-39) 06/03/17 04:45 ALT 101 U/L (7-52) H 06/03/17 04:45 Alkaline Phosphatase 222 U/L (34-104) H 06/03/17 04:45 Troponin I 0.01 ng/mL (0.01-0.05) 05/28/17 16:22 Total Protein 5.0 gm/dL (6.0-8.3) L 06/03/17 04:45 Albumin 2.3 gm/dL (3.7-5.3) L 06/03/17 04:45 Globulin 2.7 gm/dL 06/03/17 04:45 Albumin/Globulin Ratio 0.9 (1.0-1.8) L 06/03/17 04:45 Prealbumin 18 mg/dL (10-36) 05/31/17 05:25 Triglycerides 79 mg/dL (<150) 05/31/17 05:25 Cholesterol 103 mg/dL (<200) 05/31/17 05:25 LDL Cholesterol Direct 78 mg/dL (75-193) 05/29/17 06:35 HDL Cholesterol 23 mg/dL (23-92) 05/29/17 06:35 Amylase 60 U/L (29-103) 07/22/17 16:22 Lipase 33 U/L (11-82) 05/28/17 16:22 TSH 1.14 uIU/ml (0.34-5.60) 05/29/17 06:35 Urine Source CATH 05/28/17 19:00 Urine Color YELLOW 05/28/17 19:00 Urine Clarity HAZY (CLEAR) 05/28/17 19:00 Urine pH 6.5 05/28/17 19:00 Ur Specific [place] 1.015 (1.005-1.030) 05/28/17 19:00 Urine Protein TRACE mg/dL (NEGATIVE) 05/28/17 19:00 Urine Glucose (UA) NEGATIVE mg/dL (NEGATIVE) 05/28/17 19:00 Urine Ketones NEGATIVE mg/dL (NEGATIVE) 05/28/17 19:00 Urine Blood TRACE (NEGATIVE) 05/28/17 19:00 Urine Nitrate NEGATIVE (NEGATIVE) 05/28/17 19:00 Urine Bilirubin NEGATIVE (NEGATIVE) 05/28/17 19:00 Urine Urobilinogen 0.2 E.U./dL (0.2 - 1.0) 05/28/17 19:00 Ur Leukocyte Esterase SMALL (NEGATIVE) H 05/28/17 19:00 Urine RBC 2-5 /hpf (0-5) 05/28/17 19:00 Urine WBC 50-100 /hpf (0-5) H 05/28/17 19:00 Ur Epithelial Cells FEW /lpf (FEW) 05/28/17 19:00 Urine Bacteria 1+ /hpf (NONE SEEN) H 05/28/17 19:00 Urine Mucus FEW /lpf (FEW) 05/28/17 19:00 Blood Type O POSITIVE 06/02/17 05:22 Antibody Screen NEGATIVE 06/02/17 05:22 Crossmatch See Detail 06/02/17 05:22 - Physical Exam Vitals and I&O: Vital Signs Temp 98.4 F 06/04/17 04:00 Pulse 99 06/04/17 05:00 Resp 11 06/04/17 05:00 BP 120/64 06/04/17 05:00 Pulse Ox 98 06/04/17 06:00 Intake & Output 06/03/17 06/04/17 06/04/17 18:59 06:59 18:59 Intake Total 4176.249 1100 Output Total 6277 Balance -2100.751 1100 Weight (lbs) 667.745 kg Intake: Intake, IV Amount 0662.334 0008 Colistimethate 150 mg In 100 Sodium Chloride 0.9% 100 ml @ 100 mls/hr IV Q12HR [facility] Rx#:[id number] KCL 20mEq/100mL Premix 20 285.833 meq In 100 ml @ 50 mls/ hr IV Q2H [facility] Rx#: [id number] Mag Sulfate 2gm/50mL 50 Premix 2 gm In 50 ml @ 25 mls/hr IV Q2H [facility] Rx#: [id number] Meropenem 1 gm In Sodium 100 100 Chloride 0.9% 100 ml @ 100 mls/hr IV Q8HR [facility] Rx #:[id number] Multivitamin Inj 10 ml In 575.833 Dextrose 70% 490 ml In Amino Acids 10% 500 ml In Intralipids 20% 200 ml @ 50 mls/hr IV .Q24H [facility] Rx#:[id number] Sodium Chloride 0.9% 1, 399.710 1879 000 ml @ 125 mls/hr IV . Q8H [facility] Rx#:[id number] Oral 1100 TPN/PPN 1200 Output: Drainage 27 Left Lower Abdomen 27 Urine 6250 Stool 0 Other: # Bowel Movements 0 Active Medications: Current Medications Albuterol/Ipratropium (Duoneb Neb) 3 ml HHN Q4HRT [facility] Stop: 07/30/17 18:59 Last Admin: 06/04/17 08:07 Dose: 3 ml Budesonide (Pulmicort) 0.5 mg HHN BIDRT [facility] Stop: 07/30/17 18:59 Last Admin: 06/04/17 08:07 Dose: 0.5 mg Clonidine HCl (Catapres) 0.2 mg PO DAILY [facility] Stop: 07/28/17 08:59 Last Admin: 06/03/17 09:59 Dose: 0.2 mg Diltiazem HCl (Cardizem) 20 mg IVP Q3H PRN PRN Reason: HR => 120 bpm Stop: 07/30/17 21:14 Last Admin: 06/01/17 01:08 Dose: 20 mg Multivitamins/Minerals 10 ml/Dextrose/ Amino Acids/Electrolytes/ Fat Emulsion Intravenous 1,200 mls @ 50 mls/hr IV .Q24H [facility] Stop: 07/29/17 14:59 Last Admin: 06/03/17 17:57 Dose: 50 mls/hr Linezolid (Zyvox) 600 mg in 300 mls @ 300 mls/hr IV Q12HR [facility] Stop: 07/30/17 20:59 Last Admin: 06/03/17 21:00 Dose: 300 mls/hr Meropenem 1 gm/ Sodium (Chloride) 100 mls @ 100 mls/hr IV Q8HR [facility] Stop: 07/30/17 15:59 Last Admin: 06/04/17 05:04 Dose: 100 mls/hr Colistimethate Sodium 150 mg/ (Sodium Chloride) 100 mls @ 100 mls/hr IV Q12HR [facility] Stop: 07/30/17 20:59 Last Admin: 06/03/17 20:08 Dose: 100 mls/hr Sodium Chloride (Nacl 0.9%) 1,000 mls @ 125 mls/hr IV .Q8H [facility] Stop: 07/31/17 07:29 Last Admin: 06/04/17 03:18 Dose: 125 mls/hr Potassium Chloride (Potassium Chloride) 20 meq in 100 mls @ 50 mls/hr IV Q2H [facility] Stop: 06/04/17 12:04 Last Admin: 06/04/17 09:29 Dose: 50 mls/hr Insulin Aspart (Novolog Insulin Sliding Scale) 0 units SUBQ ACHS [facility] PRN Reason: Protocol Stop: 07/31/17 07:29 Last Admin: 06/04/17 07:19 Dose: 6 units Lactobacillus Rhamnosus (Culturelle) 1 each PO DAILY [facility] Stop: 08/02/17 08:59 Last Admin: 06/03/17 09:59 Dose: 1 each Lorazepam (Ativan) 1 mg IVP Q6HR PRN; Protocol PRN Reason: Anxiety Stop: 07/31/17 07:30 Miscellaneous (Tpn Per Pharmacy) 1 ea MC DAILY [facility] Stop: 07/28/17 08:59 Miscellaneous (Probiotic Screen) 1 ea MC PRN PRN PRN Reason: PROTOCOL Stop: 08/01/17 11:22 Morphine Sulfate (Morphine) 2 mg IVP Q4HR PRN PRN Reason: Abdominal Pain Stop: 07/30/17 14:36 Last Admin: 06/04/17 04:40 Dose: 2 mg Morphine Sulfate (Morphine) 2 mg IV Q3HR PRN PRN Reason: Severe Pain Stop: 07/30/17 17:08 Last Admin: 06/01/17 04:53 Dose: 2 mg Mupirocin (Bactroban Oint) 1 appl NS BID [facility] Stop: 06/04/17 17:01 Last Admin: 06/03/17 17:57 Dose: 1 appl Ondansetron HCl (Zofran) 4 mg IV Q4H PRN PRN Reason: Nausea / Vomiting Stop: 08/02/17 20:54 Oxycodone/Acetaminophen (Percocet 5/325mg Oral Tab) 1 tab PO QID PRN PRN Reason: Pain (Moderate) Stop: 07/27/17 20:50 Last Admin: 05/30/17 22:52 Dose: 1 tab Pantoprazole Sodium (Protonix) 40 mg IVP BID [facility] Stop: 07/30/17 16:59 Last Admin: 06/03/17 18:06 Dose: 40 mg Zolpidem Tartrate (Ambien) 5 mg PO HS PRN PRN Reason: Insomnia Stop: 07/27/17 20:50 Last Admin: 06/04/17 01:04 Dose: 5 mg General: No acute distress HEENT: Atraumatic Cardiovascular: Regular rate, Normal S1, Normal S2 Abdomen: Bowel sounds, Soft Neurological: Other (weak) - Procedures Procedures: Procedures Procedure Code Date BYPASS STOMACH TO JEJUNUM, OPEN APPROACH [id number] 05/28/17 DRAINAGE OF PERITONEAL CAVITY WITH DRAIN DEV, OPEN APPROACH [id number] 01/25/17 FUSION OF STOMACH AND BOWEL [id number] 05/28/17 INSERT INFUSION DEV IN R INT JUGULAR VEIN, PERC [id number] 01/25/17 INSERTION OF INFUSION DEVICE INTO R ATRIUM, PERC APPROACH [id number] 01/25/17 INSPECTION OF GASTROINTESTINAL TRACT, OPEN APPROACH [id number] 01/25/17 REMOVAL OF GALLBLADDER 91250 01/25/17 REOPENING OF ABDOMEN 85316 01/25/17 REPAIR STOMACH, OPEN APPROACH [id number] 01/25/17 RESECTION OF GALLBLADDER, OPEN APPROACH [id number] 01/25/17 RESPIRATORY VENTILATION, 24-96 CONSECUTIVE HOURS [id number] 05/28/17 RESPIRATORY VENTILATION, LESS THAN 24 CONSECUTIVE HOURS [id number] 01/25/17 STOMACH SURGERY PROCEDURE 74817 01/25/17 VENT MGMT INPAT INIT DAY 42893 01/25/17 Assessment/Plan - Problem List Patient Problems: All Active Problems H/O diabetes mellitus (Acute) Z86.39 H/O drug abuse (Acute) Z87.898 H/O: HTN (hypertension) (Acute) Z86.79 POSTCHOLECYSTECTOMY (Acute) UTI (urinary tract infection) (Acute) closeure og gastric perf (Acute) cplacement of new gj (Acute) h/o dementia (Acute) lysisi of adhesions (Acute) r/o sepsis (Acute) s/p surgery (Acute) septic shock (Acute) tachycardia (Acute) Nutritional Asmnt/Malnutr-PDOC - Dietary Evaluation Malnutrition Findings (Please click <Entered> for more info): Nutritional Asmnt/Malnutrition Start: 05/30/17 15: 01 Text: Status: Complete Freq: Document 05/30/17 15:01 GSUN (Rec: 05/30/17 15:47 [id number]) Nutritional Asmnt/Malnutrition Patient General Information Nutritional Screening High Risk Screening Diagnosis Abd pain, gastrocutaneous fistula, UTI, leukocytosis ( improved) Pertinent Medical Hx/Surgical Hx HTN, DM, cholecystectomy past January 2017 Subjective Information 71 year old female from SNF. Upper GI series today, RN stated possible surgeries pending. Pt was alert and pleasant, appeared anxious, aware of medical condition and TPN/nutrition plan of care. RD explained TPN again, pt has no further questions. Pt reported she has been on TPN since January 2017. Found SNF TPN order in transfer chart, noted under "dosing weight: 134.4lb," pt confirmed wt 130lb measured this month. Questionabled EMR weight, unable to obtain CBW due to bedscale not calibrated. Unable to compelte physical assessment due to heavy blankets. Pt report usual BM pattern once every 2-3 days, given laxative at SNF to promote BM every day. Current Diet Order/ Nutrition Support D25% AA4.25% at 40ml/hr with IL20% 200ml, providing 1359kcal, 40g protein Pertinent Medications Novolog, TPN, Morphine, Multivitamins, Zofran, Protonix, Nacl 0.9% Pertinent Labs 05/29: triglycerides 89 WNL 05/30: BUN 29H (improving), creatinine WNL, glucose 197H, total bilirubin WNL, A1c 6.5H Nutritional Hx/Data Height 1.73 m Height (Calculated Centimeters) 172.7 Current Weight (lbs) 66.678 kg Weight (Calculated Kilograms) 66.7 Weight (Calculated Grams) 31750.1 Usual body Weight (lbs) [address] [place] Body Weight 154 Weight Status Approriate GI Symptoms GI Symptoms Vomitting Cultural/Ethnic/Scientologist Belief [facility]: Dextrose 288gm, AA96gm, IL 18g, 2010ml, providing 1525kcal. Skin Integrity/Comment: Asad Eid. assessment nurse practitioner: abdomen rash/fistula, otherwise skin intact. Estimated Nutritional Goals Calories/Kcals/Kg UBW 130lb/59.1kg Kcals Calculated 1478-1773kcal (25-30kcal/kg) Protein Calculated 59-83g (1-1.4g/kg) Fluid: ml Per MD Nutritional Problem 1. 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 Recommend TPN D19% AA5.5% at 50ml/hr with IL20% 250ml, providing 1539kcal, 66g protein. Dx DM, 50% of total kcal from dextrose. Carb load 2.6mg/kg/min (using SNF weight 134.4lb/61.1kg). Pt has been on TPN since January 2017. 2. Obtain CBW, bedscale inproperly calibrated during visit. Dosing weight 134.4lb noted under SNF TPN order. Pt stated UBW 130lb. Expected Outcomes/Goals Expected Outcomes/Goals 1. Pt to meet 100% of estimated nutritional needs on TPN with tolerance.
--- NOTE | 2017-06-04 11:40 | Infectious Disease Prog Note ---
Infectious Disease Subjective - Review of Systems Service Date: 06/04/17 Subjective: Doing well. Infectious Disease Objective - Results Result Diagrams: 06/04/17 04:39 06/04/17 04:39 Recent Labs: Laboratory Last Values WBC 8.4 Th/cmm (4.8-10.8) D 06/04/17 04:39 RBC 3.14 Mil/cmm (3.80-5.20) L 06/04/17 04:39 Hgb 9.8 gm/dL (11.7-16.1) L 06/04/17 04:39 Hct 28.8 % (35.0-45.0) L 06/04/17 04:39 MCV 91.9 fl (81-100) 06/04/17 04:39 MCH 31.1 pg (27.0-31.0) H 06/04/17 04:39 MCHC Differential 33.8 pg (28.0-36.0) 06/04/17 04:39 RDW 15.1 % (11.5-20.0) 06/04/17 04:39 Plt Count 243 Th/cmm (150-400) 06/04/17 04:39 MPV 8.5 fl 06/04/17 04:39 Neutrophils % 69.8 % (40.0-80.0) 06/04/17 04:39 Band Neutrophils % 2 % (0-10) 06/02/17 07:25 Lymphocytes % 16.9 % (20.0-50.0) L 06/04/17 04:39 Monocytes % 8.0 % (2.0-10.0) 06/04/17 04:39 Eosinophils % 4.6 % (0.0-5.0) 06/04/17 04:39 Basophils % 0.7 % (0.0-2.0) 06/04/17 04:39 Neutrophils (Manual) 82 % (40-80) H 06/02/17 07:25 Lymphocytes 10 % (20-50) L 06/02/17 07:25 Monocytes 6 % (2-10) 06/02/17 07:25 Platelet Estimate ADEQUATE (NORMAL) 06/02/17 07:25 Platelet Morphology NORMAL (NORMAL) 06/02/17 07:25 Anisocytosis 1+ 06/02/17 07:25 RBC Morph Micro Appear ABNORMAL (NORMAL) 06/02/17 07:25 PT 11.0 SECONDS (9.5-11.5) 05/31/17 05:25 INR 1.06 (0.5-1.4) 05/31/17 05:25 Specimen Source Arterial 06/02/17 09:51 Sample Site Right Radial 06/02/17 09:51 pH 7.39 (7.35-7.45) 06/02/17 09:51 pCO2 43.0 mmHg (35.0-45.0) 06/02/17 09:51 pO2 144.0 mmHg (80.0-100.0) H 06/02/17 09:51 HCO3 25.6 mEq/L (20.0-26.0) 06/02/17 09:51 Base Excess 0.8 mEq/L (-3.0-3.0) 06/02/17 09:51 O2 Saturation 99.0 % (92.0-100.0) 06/02/17 09:51 Luther Test PASS 06/02/17 09:51 Vent Rate 6 06/01/17 08:44 Inspired O2 28 06/02/17 09:51 Tidal Volume 450 06/01/17 08:44 PEEP 5 06/01/17 08:44 Pressure (ins/psv/peep) 15 06/01/17 08:44 Critical Value PW 06/02/17 09:51 Sodium 135 mEq/L (136-145) L 06/04/17 04:39 Potassium 2.9 mEq/L (3.5-5.1) L* 06/04/17 04:39 Chloride 103 mEq/L (98-107) 06/04/17 04:39 Carbon Dioxide 27.8 mEq/L (21.0-31.0) 06/04/17 04:39 Anion Gap 7.1 (7.0-16.0) 06/04/17 04:39 BUN 15 mg/dL (7-25) 06/04/17 04:39 Creatinine 0.8 mg/dL (0.6-1.2) 06/04/17 04:39 Est GFR ( Amer) > 60.0 ml/min (>90) 06/04/17 04:39 Est GFR (Non-Af Amer) > 60.0 ml/min 06/04/17 04:39 BUN/Creatinine Ratio 18.8 06/04/17 04:39 Glucose 181 mg/dL (70-105) H 06/04/17 04:39 POC Glucose 221 MG/DL (70 - 105) H 06/03/17 17:50 Hemoglobin A1c % 6.5 % (4.0-6.0) H 05/30/17 06:16 Whole Bld Lactic Acid 1.25 mmol/L (0.60-1.99) 05/28/17 16:22 Calcium 8.1 mg/dL (8.6-10.3) L 06/04/17 04:39 Phosphorus 2.8 mg/dL (2.5-5.0) 06/04/17 04:39 Magnesium 1.5 mg/dL (1.9-2.7) L 06/04/17 04:39 Total Bilirubin 0.5 mg/dL (0.3-1.0) 06/03/17 04:45 AST 15 U/L (13-39) 06/03/17 04:45 ALT 101 U/L (7-52) H 06/03/17 04:45 Alkaline Phosphatase 222 U/L (34-104) H 06/03/17 04:45 Troponin I 0.01 ng/mL (0.01-0.05) 05/28/17 16:22 Total Protein 5.0 gm/dL (6.0-8.3) L 06/03/17 04:45 Albumin 2.3 gm/dL (3.7-5.3) L 06/03/17 04:45 Globulin 2.7 gm/dL 06/03/17 04:45 Albumin/Globulin Ratio 0.9 (1.0-1.8) L 06/03/17 04:45 Prealbumin 18 mg/dL (10-36) 05/31/17 05:25 Triglycerides 79 mg/dL (<150) 05/31/17 05:25 Cholesterol 103 mg/dL (<200) 05/31/17 05:25 LDL Cholesterol Direct 78 mg/dL (75-193) 05/29/17 06:35 HDL Cholesterol 23 mg/dL (23-92) 05/29/17 06:35 Amylase 60 U/L (29-103) 05/28/17 16:22 Lipase 33 U/L (11-82) 05/28/17 16:22 TSH 1.14 uIU/ml (0.34-5.60) 05/29/17 06:35 Urine Source CATH 05/28/17 19:00 Urine Color YELLOW 05/28/17 19:00 Urine Clarity HAZY (CLEAR) 05/28/17 19:00 Urine pH 6.5 05/28/17 19:00 Ur Specific [place] 1.015 (1.005-1.030) 05/28/17 19:00 Urine Protein TRACE mg/dL (NEGATIVE) 05/28/17 19:00 Urine Glucose (UA) NEGATIVE mg/dL (NEGATIVE) 05/28/17 19:00 Urine Ketones NEGATIVE mg/dL (NEGATIVE) 05/28/17 19:00 Urine Blood TRACE (NEGATIVE) 05/28/17 19:00 Urine Nitrate NEGATIVE (NEGATIVE) 05/28/17 19:00 Urine Bilirubin NEGATIVE (NEGATIVE) 05/28/17 19:00 Urine Urobilinogen 0.2 E.U./dL (0.2 - 1.0) 05/28/17 19:00 Ur Leukocyte Esterase SMALL (NEGATIVE) H 05/28/17 19:00 Urine RBC 2-5 /hpf (0-5) 05/28/17 19:00 Urine WBC 50-100 /hpf (0-5) H 05/28/17 19:00 Ur Epithelial Cells FEW /lpf (FEW) 05/28/17 19:00 Urine Bacteria 1+ /hpf (NONE SEEN) H 05/28/17 19:00 Urine Mucus FEW /lpf (FEW) 05/28/17 19:00 Blood Type O POSITIVE 06/02/17 05:22 Antibody Screen NEGATIVE 06/02/17 05:22 Crossmatch See Detail 06/02/17 05:22 - Physical Exam Vitals and I&O: Vital Signs Temp 98.4 F 06/04/17 04:00 Pulse 100 06/04/17 08:19 Resp 18 06/04/17 11:13 BP 120/64 06/04/17 05:00 Pulse Ox 98 06/04/17 08:19 Intake & Output 06/03/17 06/04/17 06/04/17 18:59 06:59 18:59 Intake Total 4176.249 1100 90.833 Output Total 6277 Balance -2100.751 1100 90.833 Weight (lbs) 667.745 kg Intake: Intake, IV Amount 6342.163 0266 90.833 Colistimethate 150 mg In 100 Sodium Chloride 0.9% 100 ml @ 100 mls/hr IV Q12HR [facility] Rx#:[id number] KCL 20mEq/100mL Premix 20 285.833 meq In 100 ml @ 50 mls/ hr IV Q2H [facility] Rx#: [id number] KCL 20mEq/100mL Premix 20 90.833 meq In 100 ml @ 50 mls/ hr IV Q2H [facility] Rx#: [id number] Mag Sulfate 2gm/50mL 50 Premix 2 gm In 50 ml @ 25 mls/hr IV Q2H [facility] Rx#: [id number] Meropenem 1 gm In Sodium 100 100 Chloride 0.9% 100 ml @ 100 mls/hr IV Q8HR [facility] Rx #:[id number] Multivitamin Inj 10 ml In 575.833 Dextrose 70% 490 ml In Amino Acids 10% 500 ml In Intralipids 20% 200 ml @ 50 mls/hr IV .Q24H [facility] Rx#:[id number] Sodium Chloride 0.9% 1, 723.224 7174 000 ml @ 125 mls/hr IV . Q8H [facility] Rx#:[id number] Oral 1100 TPN/PPN 1200 Output: Drainage 27 Left Lower Abdomen 27 Urine 6250 Stool 0 Other: # Bowel Movements 0 Active Medications: Current Medications Albuterol/Ipratropium (Duoneb Neb) 3 ml HHN Q4HRT [facility] Stop: 07/30/17 18:59 Last Admin: 06/04/17 08:07 Dose: 3 ml Budesonide (Pulmicort) 0.5 mg HHN BIDRT [facility] Stop: 07/30/17 18:59 Last Admin: 06/04/17 08:07 Dose: 0.5 mg Clonidine HCl (Catapres) 0.2 mg PO DAILY [facility] Stop: 07/28/17 08:59 Last Admin: 06/03/17 09:59 Dose: 0.2 mg Diltiazem HCl (Cardizem) 20 mg IVP Q3H PRN PRN Reason: HR => 120 bpm Stop: 07/30/17 21:14 Last Admin: 06/01/17 01:08 Dose: 20 mg Multivitamins/Minerals 10 ml/Dextrose/ Amino Acids/Electrolytes/ Fat Emulsion Intravenous 1,200 mls @ 50 mls/hr IV .Q24H [facility] Stop: 07/29/17 14:59 Last Admin: 06/03/17 17:57 Dose: 50 mls/hr Linezolid (Zyvox) 600 mg in 300 mls @ 300 mls/hr IV Q12HR [facility] Stop: 07/30/17 20:59 Last Admin: 06/03/17 21:00 Dose: 300 mls/hr Meropenem 1 gm/ Sodium (Chloride) 100 mls @ 100 mls/hr IV Q8HR [facility] Stop: 07/30/17 15:59 Last Admin: 06/04/17 05:04 Dose: 100 mls/hr Colistimethate Sodium 150 mg/ (Sodium Chloride) 100 mls @ 100 mls/hr IV Q12HR [facility] Stop: 07/30/17 20:59 Last Admin: 06/03/17 20:08 Dose: 100 mls/hr Sodium Chloride (Nacl 0.9%) 1,000 mls @ 125 mls/hr IV .Q8H [facility] Stop: 07/31/17 07:29 Last Admin: 06/04/17 03:18 Dose: 125 mls/hr Potassium Chloride (Potassium Chloride) 20 meq in 100 mls @ 50 mls/hr IV Q2H [facility] Stop: 06/04/17 12:04 Last Admin: 06/04/17 11:18 Dose: 50 mls/hr Insulin Aspart (Novolog Insulin Sliding Scale) 0 units SUBQ ACHS [facility] PRN Reason: Protocol Stop: 07/31/17 07:29 Last Admin: 06/04/17 07:19 Dose: 6 units Lactobacillus Rhamnosus (Culturelle) 1 each PO DAILY [facility] Stop: 08/02/17 08:59 Last Admin: 06/03/17 09:59 Dose: 1 each Lorazepam (Ativan) 1 mg IVP Q6HR PRN; Protocol PRN Reason: Anxiety Stop: 07/31/17 07:30 Miscellaneous (Tpn Per Pharmacy) 1 ea MC DAILY [facility] Stop: 07/28/17 08:59 Miscellaneous (Probiotic Screen) 1 ea MC PRN PRN PRN Reason: PROTOCOL Stop: 08/01/17 11:22 Morphine Sulfate (Morphine) 2 mg IVP Q4HR PRN PRN Reason: Abdominal Pain Stop: 07/30/17 14:36 Last Admin: 06/04/17 04:40 Dose: 2 mg Morphine Sulfate (Morphine) 2 mg IV Q3HR PRN PRN Reason: Severe Pain Stop: 07/30/17 17:08 Last Admin: 06/01/17 04:53 Dose: 2 mg Mupirocin (Bactroban Oint) 1 appl NS BID [facility] Stop: 06/04/17 17:01 Last Admin: 06/03/17 17:57 Dose: 1 appl Ondansetron HCl (Zofran) 4 mg IV Q4H PRN PRN Reason: Nausea / Vomiting Stop: 08/02/17 20:54 Oxycodone/Acetaminophen (Percocet 5/325mg Oral Tab) 1 tab PO QID PRN PRN Reason: Pain (Moderate) Stop: 07/27/17 20:50 Last Admin: 05/30/17 22:52 Dose: 1 tab Pantoprazole Sodium (Protonix) 40 mg IVP BID [facility] Stop: 07/30/17 16:59 Last Admin: 06/03/17 18:06 Dose: 40 mg Zolpidem Tartrate (Ambien) 5 mg PO HS PRN PRN Reason: Insomnia Stop: 07/27/17 20:50 Last Admin: 06/04/17 01:04 Dose: 5 mg General: no acute distress, well developed, well nourished HEENT: atraumatic, normocephalic Neck: supple, no thyromegaly Cardiovascular: S1S2, regular Lungs: clear to auscultation bilaterally, clear to percussion Abdomen: soft, no tender, no distended Extremities: no cyanosis, no clubbing, no edema Neurological: awake, alert, oriented - Procedures Procedures: Procedures Procedure Code Date BYPASS STOMACH TO JEJUNUM, OPEN APPROACH [id number] 05/28/17 DRAINAGE OF PERITONEAL CAVITY WITH DRAIN DEV, OPEN APPROACH [id number] 01/25/17 FUSION OF STOMACH AND BOWEL [id number] 05/28/17 INSERT INFUSION DEV IN R INT JUGULAR VEIN, PERC [id number] 01/25/17 INSERTION OF INFUSION DEVICE INTO R ATRIUM, PERC APPROACH [id number] 01/25/17 INSPECTION OF GASTROINTESTINAL TRACT, OPEN APPROACH [id number] 01/25/17 REMOVAL OF GALLBLADDER 64462 01/25/17 REOPENING OF ABDOMEN 10632 01/25/17 REPAIR STOMACH, OPEN APPROACH [id number] 01/25/17 RESECTION OF GALLBLADDER, OPEN APPROACH [id number] 01/25/17 RESPIRATORY VENTILATION, 24-96 CONSECUTIVE HOURS [id number] 05/28/17 RESPIRATORY VENTILATION, LESS THAN 24 CONSECUTIVE HOURS [id number] 01/25/17 STOMACH SURGERY PROCEDURE 30350 01/25/17 VENT MGMT INPAT INIT DAY 54787 01/25/17 Infectious Disease Assmt/Plan - Problem List Patient Problems: All Active Problems H/O diabetes mellitus (Acute) Z86.39 H/O drug abuse (Acute) Z87.898 H/O: HTN (hypertension) (Acute) Z86.79 POSTCHOLECYSTECTOMY (Acute) UTI (urinary tract infection) (Acute) closeure og gastric perf (Acute) cplacement of new gj (Acute) h/o dementia (Acute) lysisi of adhesions (Acute) r/o sepsis (Acute) s/p surgery (Acute) septic shock (Acute) tachycardia (Acute) - Assessment Assessment: 1. Abdominal pain, lilely peritonitis. 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 3. UTI. 4. Leukocytosis. Improved. - Plan Plan: Continue zyvox, meropenem and colistin. Nutritional Asmnt/Malnutr-PDOC - Dietary Evaluation Malnutrition Findings (Please click <Entered> for more info): Nutritional Asmnt/Malnutrition Start: 05/30/17 15: 01 Text: Status: Complete Freq: Document 05/30/17 15:01 [email or web address] (Rec: 05/30/17 15:47 UN [email or web address]) Nutritional Asmnt/Malnutrition Patient General Information Nutritional Screening High Risk Screening Diagnosis Abd pain, gastrocutaneous fistula, UTI, leukocytosis ( improved) Pertinent Medical Hx/Surgical Hx HTN, DM, cholecystectomy past January 2017 Subjective Information 71 year old female from SNF. Upper GI series today, RN stated possible surgeries pending. Pt was alert and pleasant, appeared anxious, aware of medical condition and TPN/nutrition plan of care. RD explained TPN again, pt has no further questions. Pt reported she has been on TPN since January 2017. Found SNF TPN order in transfer chart, noted under "dosing weight: 134.4lb," pt confirmed wt 130lb measured this month. Questionabled EMR weight, unable to obtain CBW due to bedscale not calibrated. Unable to compelte physical assessment due to heavy blankets. Pt report usual BM pattern once every 2-3 days, given laxative at SNF to promote BM every day. Current Diet Order/ Nutrition Support D25% AA4.25% at 40ml/hr with IL20% 200ml, providing 1359kcal, 40g protein Pertinent Medications Novolog, TPN, Morphine, Multivitamins, Zofran, Protonix, Nacl 0.9% Pertinent Labs 05/29: triglycerides 89 WNL 05/30: BUN 29H (improving), creatinine WNL, glucose 197H, total bilirubin WNL, A1c 6.5H Nutritional Hx/Data Height 1.73 m Height (Calculated Centimeters) 172.7 Current Weight (lbs) 66.678 kg Weight (Calculated Kilograms) 66.7 Weight (Calculated Grams) 93152.1 Usual body Weight (lbs) 130 [place] Body Weight 154 Weight Status Approriate GI Symptoms GI Symptoms Vomitting Cultural/Ethnic/Buddhism Belief [facility]: Dextrose 288gm, AA96gm, IL 18g, 2010ml, providing 1525kcal. Skin Integrity/Comment: Asad Eid. family assessment worker: abdomen rash/fistula, otherwise skin intact. Estimated Nutritional Goals Calories/Kcals/Kg UBW 130lb/59.1kg Kcals Calculated 1478-1773kcal (25-30kcal/kg) Protein Calculated 59-83g (1-1.4g/kg) Fluid: ml Per MD Nutritional Problem 1. 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 Recommend TPN D19% AA5.5% at 50ml/hr with IL20% 250ml, providing 1539kcal, 66g protein. Dx DM, 50% of total kcal from dextrose. Carb load 2.6mg/kg/min (using SNF weight 134.4lb/61.1kg). Pt has been on TPN since January 2017. 2. Obtain CBW, bedscale inproperly calibrated during visit. Dosing weight 134.4lb noted under SNF TPN order. Pt stated UBW 130lb. Expected Outcomes/Goals Expected Outcomes/Goals 1. Pt to meet 100% of estimated nutritional needs on TPN with tolerance.
[2017-06-04] MEDS: Linezolid 600mg/300mL 600 MG/300 ML BAG IV SCH ×2 (11:55→23:56)
[2017-06-04] MEDS: Lactobacillus Rhamnosus 10 Billion CFU Capsule PO SCH (12:28)
[2017-06-04] MEDS: TPN 10%-70% CUSTOM IV SCH (16:35)
--- NOTE | 2017-06-04 20:35 | Progress Notes ---
DATE: 06/04/2017 SUBJECTIVE: The patient was seen in her room lying on the bed. Per patient, she still has some episodes of belly pain, but tolerable. Denies any nausea or vomiting. No shortness of breath, otherwise the patient is in no acute distress. OBJECTIVE: VITAL SIGNS: Heart rate of 99, blood pressure 120/64, respiration of 18, saturation 99% on room air. HEENT: Head is atraumatic and normocephalic. Eyes: Bilateral conjunctivae are clear. Bilateral pupils are equally round and reactive. NECK: Supple. No JVD. The patient has bilateral . The patient has NGT. CARDIOVASCULAR: S1 and S2 without murmur, sinus rhythm on the monitor. GASTROINTESTINAL: . Positive bowel sounds. Positive Jose-Miranda drainage. MUSCULOSKELETAL: No edema, no clubbing, no cyanosis. ASSESSMENT: 1. Epigastric pain. 2. Gastritis. 3. Urinary tract infection. 4. Sepsis. 5. Status post cholecystectomy. 6. Dementia. 7. Gastrocutaneous fistula. PLAN: We will continue IV antibiotics per ID doctor. We will continue TPN. We will monitor the patient's surgical site. The patient is stable enough to go telemetry, otherwise treatment plans were discussed with Dr. Aggarwal. JOB# [id number]
[2017-06-05] MEDS: Morphine Sulfate 2 mg/mL 1mL Syr IVP PRN ×4 (02:12→16:51)
[2017-06-05] MEDS: Meropenem 1 GM in Sodium Chloride 0.9% 100 ML IV SCH ×3 (02:55→18:42)
[2017-06-05] MEDS: Albuterol/Ipratropium Neb 3 ML AERS HHN SCH ×6 (02:57→23:17)
[2017-06-05] MEDS: INSULIN ASPART SLIDING SCALE 100 UNITS/ML UNIT SUBQ SCH ×4 (06:30→21:30)
[2017-06-05] MEDS: Budesonide 0.5 Mg/2 mL Ud HHN SCH ×2 (06:41→19:52)
[2017-06-05 07:20] LABS: ANION GAP 5.3 (7.0-16.0); BUN - UREA NITROGEN 18 mg/dL (7-25); CALCIUM SERUM 8.1 mg/dL (8.6-10.3); CARBON DIOXIDE 32.7 mEq/L (21.0-31.0); CHLORIDE 99 mEq/L (98-107); CREATININE - SERUM 0.9 mg/dL (0.6-1.2); GLUCOSE 205 mg/dL (70-105); MAGNESIUM 1.6 mg/dL (1.9-2.7); PHOSPHOROUS 2.9 mg/dL (2.5-5.0); SODIUM SERUM 134 mEq/L (136-145)
[2017-06-05] MEDS: Linezolid 600mg/300mL 600 MG/300 ML BAG IV SCH ×2 (09:10→22:30)
[2017-06-05] MEDS: Lactobacillus Rhamnosus 10 Billion CFU Capsule PO SCH (09:11)
--- NOTE | 2017-06-05 10:34 | General Progress Note ---
Subjective - Review of Systems Events since last encounter: patient is doing better Subjective: awake, on tpn, nad Objective - Results Result Diagrams: 06/04/17 04:39 06/05/17 06:46 Recent Labs: Laboratory Last Values WBC 8.4 Th/cmm (4.8-10.8) D 06/04/17 04:39 RBC 3.14 Mil/cmm (3.80-5.20) L 06/04/17 04:39 Hgb 9.8 gm/dL (11.7-16.1) L 06/04/17 04:39 Hct 28.8 % (35.0-45.0) L 06/04/17 04:39 MCV 91.9 fl (81-100) 06/04/17 04:39 MCH 31.1 pg (27.0-31.0) H 06/04/17 04:39 MCHC Differential 33.8 pg (28.0-36.0) 06/04/17 04:39 RDW 15.1 % (11.5-20.0) 06/04/17 04:39 Plt Count 243 Th/cmm (150-400) 06/04/17 04:39 MPV 8.5 fl 06/04/17 04:39 Neutrophils % 69.8 % (40.0-80.0) 06/04/17 04:39 Band Neutrophils % 2 % (0-10) 06/02/17 07:25 Lymphocytes % 16.9 % (20.0-50.0) L 06/04/17 04:39 Monocytes % 8.0 % (2.0-10.0) 06/04/17 04:39 Eosinophils % 4.6 % (0.0-5.0) 06/04/17 04:39 Basophils % 0.7 % (0.0-2.0) 06/04/17 04:39 Neutrophils (Manual) 82 % (40-80) H 06/02/17 07:25 Lymphocytes 10 % (20-50) L 06/02/17 07:25 Monocytes 6 % (2-10) 06/02/17 07:25 Platelet Estimate ADEQUATE (NORMAL) 06/02/17 07:25 Platelet Morphology NORMAL (NORMAL) 06/02/17 07:25 Anisocytosis 1+ 06/02/17 07:25 RBC Morph Micro Appear ABNORMAL (NORMAL) 06/02/17 07:25 PT 11.0 SECONDS (9.5-11.5) 05/31/17 05:25 INR 1.06 (0.5-1.4) 05/31/17 05:25 Specimen Source Arterial 06/02/17 09:51 Sample Site Right Radial 06/02/17 09:51 pH 7.39 (7.35-7.45) 06/02/17 09:51 pCO2 43.0 mmHg (35.0-45.0) 06/02/17 09:51 pO2 144.0 mmHg (80.0-100.0) H 06/02/17 09:51 HCO3 25.6 mEq/L (20.0-26.0) 06/02/17 09:51 Base Excess 0.8 mEq/L (-3.0-3.0) 06/02/17 09:51 O2 Saturation 99.0 % (92.0-100.0) 06/02/17 09:51 Luther Test PASS 06/02/17 09:51 Vent Rate 6 06/01/17 08:44 Inspired O2 28 06/02/17 09:51 Tidal Volume 450 06/01/17 08:44 PEEP 5 06/01/17 08:44 Pressure (ins/psv/peep) 15 06/01/17 08:44 Critical Value PW 06/02/17 09:51 Sodium 134 mEq/L (136-145) L 06/05/17 06:46 Potassium 3.0 mEq/L (3.5-5.1) L 06/05/17 06:46 Chloride 99 mEq/L (98-107) 06/05/17 06:46 Carbon Dioxide 32.7 mEq/L (21.0-31.0) H 06/05/17 06:46 Anion Gap 5.3 (7.0-16.0) L 06/05/17 06:46 BUN 18 mg/dL (7-25) 06/05/17 06:46 Creatinine 0.9 mg/dL (0.6-1.2) 06/05/17 06:46 Est GFR ( Amer) > 60.0 ml/min (>90) 06/05/17 06:46 Est GFR (Non-Af Amer) > 60.0 ml/min 06/05/17 06:46 BUN/Creatinine Ratio 20.0 06/05/17 06:46 Glucose 205 mg/dL (70-105) H 06/05/17 06:46 POC Glucose 188 MG/DL (70 - 105) H 06/05/17 05:44 Hemoglobin A1c % 6.5 % (4.0-6.0) H 05/30/17 06:16 Whole Bld Lactic Acid 1.25 mmol/L (0.60-1.99) 05/28/17 16:22 Calcium 8.1 mg/dL (8.6-10.3) L 06/05/17 06:46 Phosphorus 2.9 mg/dL (2.5-5.0) 06/05/17 06:46 Magnesium 1.6 mg/dL (1.9-2.7) L 06/05/17 06:46 Total Bilirubin 0.5 mg/dL (0.3-1.0) 06/03/17 04:45 AST 15 U/L (13-39) 06/03/17 04:45 ALT 101 U/L (7-52) H 06/03/17 04:45 Alkaline Phosphatase 222 U/L (34-104) H 06/03/17 04:45 Troponin I 0.01 ng/mL (0.01-0.05) 05/28/17 16:22 Total Protein 5.0 gm/dL (6.0-8.3) L 06/03/17 04:45 Albumin 2.3 gm/dL (3.7-5.3) L 06/03/17 04:45 Globulin 2.7 gm/dL 06/03/17 04:45 Albumin/Globulin Ratio 0.9 (1.0-1.8) L 06/03/17 04:45 Prealbumin 11 mg/dL (10-36) 06/04/17 04:39 Triglycerides 79 mg/dL (<150) 05/31/17 05:25 Cholesterol 103 mg/dL (<200) 05/31/17 05:25 LDL Cholesterol Direct 78 mg/dL (75-193) 05/29/17 06:35 HDL Cholesterol 23 mg/dL (23-92) 05/29/17 06:35 Amylase 60 U/L (29-103) 05/28/17 16:22 Lipase 33 U/L (11-82) 05/28/17 16:22 TSH 1.14 uIU/ml (0.34-5.60) 05/29/17 06:35 Urine Source CATH 05/28/17 19:00 Urine Color YELLOW 05/28/17 19:00 Urine Clarity HAZY (CLEAR) 05/28/17 19:00 Urine pH 6.5 05/28/17 19:00 Ur Specific [place] 1.015 (1.005-1.030) 05/28/17 19:00 Urine Protein TRACE mg/dL (NEGATIVE) 05/28/17 19:00 Urine Glucose (UA) NEGATIVE mg/dL (NEGATIVE) 05/28/17 19:00 Urine Ketones NEGATIVE mg/dL (NEGATIVE) 05/28/17 19:00 Urine Blood TRACE (NEGATIVE) 05/28/17 19:00 Urine Nitrate NEGATIVE (NEGATIVE) 05/28/17 19:00 Urine Bilirubin NEGATIVE (NEGATIVE) 05/28/17 19:00 Urine Urobilinogen 0.2 E.U./dL (0.2 - 1.0) 05/28/17 19:00 Ur Leukocyte Esterase SMALL (NEGATIVE) H 05/28/17 19:00 Urine RBC 2-5 /hpf (0-5) 05/28/17 19:00 Urine WBC 50-100 /hpf (0-5) H 05/28/17 19:00 Ur Epithelial Cells FEW /lpf (FEW) 05/28/17 19:00 Urine Bacteria 1+ /hpf (NONE SEEN) H 05/28/17 19:00 Urine Mucus FEW /lpf (FEW) 05/28/17 19:00 Blood Type O POSITIVE 06/02/17 05:22 Antibody Screen NEGATIVE 06/02/17 05:22 Crossmatch See Detail 06/02/17 05:22 - Physical Exam Vitals and I&O: Vital Signs Temp 98.4 F 06/05/17 04:00 Pulse 111 06/05/17 09:12 Resp 18 06/05/17 08:00 BP 133/74 06/05/17 04:00 Pulse Ox 95 06/05/17 06:55 Intake & Output 06/04/17 06/05/17 06/05/17 18:59 06:59 18:59 Intake Total 3422.500 1200 Output Total 0462 2412 Balance 770.500 -1212 Weight (lbs) 72.575 kg 73.936 kg Intake: Intake, IV Amount 2722.500 400 Colistimethate 150 mg In 100 100 Sodium Chloride 0.9% 100 ml @ 100 mls/hr IV Q12HR [facility] Rx#:[id number] KCL 20mEq/100mL Premix 20 90.833 meq In 100 ml @ 50 mls/ hr IV Q2H [facility] Rx#: [id number] Linezolid 600mg/300mL 600 300 300 mg In 300 ml @ 300 mls/ hr IV Q12HR [facility] Rx#: [id number] Meropenem 1 gm In Sodium 100 Chloride 0.9% 100 ml @ 100 mls/hr IV Q8HR [facility] Rx #:[id number] Multivitamin Inj 10 ml In 1131.667 Dextrose 70% 490 ml In Amino Acids 10% 500 ml In Intralipids 20% 200 ml @ 50 mls/hr IV .Q24H [facility] Rx#:[id number] Sodium Chloride 0.9% 1, 1000 000 ml @ 125 mls/hr IV . Q8H [facility] Rx#:[id number] Oral 100 200 TPN/PPN 600 600 Output: Urine 2650 2400 Other 2 12 Other: # Bowel Movements 0 Active Medications: Current Medications Albuterol/Ipratropium (Duoneb Neb) 3 ml [facility] Q4HRT [facility] Stop: 07/30/17 18:59 Last Admin: 06/05/17 06:41 Dose: 3 ml Budesonide (Pulmicort) 0.5 mg [facility] BIDRT [facility] Stop: 07/30/17 18:59 Last Admin: 06/05/17 06:41 Dose: 0.5 mg Clonidine HCl (Catapres) 0.2 mg PO DAILY [facility] Stop: 07/28/17 08:59 Last Admin: 06/05/17 09:12 Dose: 0.2 mg Diltiazem HCl (Cardizem) 20 mg IVP Q3H PRN PRN Reason: HR => 120 bpm Stop: 07/30/17 21:14 Last Admin: 06/01/17 01:08 Dose: 20 mg Multivitamins/Minerals 10 ml/Dextrose/ Amino Acids/Electrolytes/ Fat Emulsion Intravenous 1,200 mls @ 50 mls/hr IV .Q24H [facility] Stop: 07/29/17 14:59 Last Admin: 06/04/17 16:35 Dose: 50 mls/hr Linezolid (Zyvox) 600 mg in 300 mls @ 300 mls/hr IV Q12HR [facility] Stop: 07/30/17 20:59 Last Admin: 06/05/17 09:10 Dose: 300 mls/hr Meropenem 1 gm/ Sodium (Chloride) 100 mls @ 100 mls/hr IV Q8HR [facility] Stop: 07/30/17 15:59 Last Admin: 06/05/17 02:55 Dose: 100 mls/hr Colistimethate Sodium 150 mg/ (Sodium Chloride) 100 mls @ 100 mls/hr IV Q12HR [facility] Stop: 07/30/17 20:59 Last Admin: 06/05/17 10:13 Dose: 100 mls/hr Sodium Chloride (Nacl 0.9%) 1,000 mls @ 125 mls/hr IV .Q8H [facility] Stop: 07/31/17 07:29 Last Infusion: 06/04/17 11:18 Dose: Infused Insulin Aspart (Novolog Insulin Sliding Scale) 0 units SUBQ ACHS [facility] PRN Reason: Protocol Stop: 07/31/17 07:29 Last Admin: 06/05/17 06:30 Dose: 4 units Lactobacillus Rhamnosus (Culturelle) 1 each PO DAILY [facility] Stop: 08/02/17 08:59 Last Admin: 06/05/17 09:11 Dose: 1 each Lorazepam (Ativan) 1 mg IVP Q6HR PRN; Protocol PRN Reason: Anxiety Stop: 07/31/17 07:30 Miscellaneous (Tpn Per Pharmacy) 1 ea MC DAILY [facility] Stop: 07/28/17 08:59 Miscellaneous (Probiotic Screen) 1 ea PRN PRN PRN Reason: PROTOCOL Stop: 08/01/17 11:22 Morphine Sulfate (Morphine) 2 mg IVP Q4HR PRN PRN Reason: Abdominal Pain Stop: 07/30/17 14:36 Last Admin: 06/05/17 06:27 Dose: 2 mg Morphine Sulfate (Morphine) 2 mg IV Q3HR PRN PRN Reason: Severe Pain Stop: 07/30/17 17:08 Last Admin: 06/01/17 04:53 Dose: 2 mg Ondansetron HCl (Zofran) 4 mg IV Q4H PRN PRN Reason: Nausea / Vomiting Stop: 08/02/17 20:54 Pantoprazole Sodium (Protonix) 40 mg IVP BID [facility] Stop: 07/30/17 16:59 Last Admin: 06/05/17 09:11 Dose: Not Given General: No acute distress HEENT: Atraumatic Cardiovascular: Regular rate, Normal S1, Normal S2 Abdomen: Bowel sounds, Soft Neurological: Other (weak) - Procedures Procedures: Procedures Procedure Code Date BYPASS STOMACH TO JEJUNUM, OPEN APPROACH [id number] 05/28/17 DRAINAGE OF PERITONEAL CAVITY WITH DRAIN DEV, OPEN APPROACH [id number] 01/25/17 FUSION OF STOMACH AND BOWEL 56818 05/28/17 INSERT INFUSION DEV IN R INT JUGULAR VEIN, PERC [id number] 01/25/17 INSERTION OF INFUSION DEVICE INTO R ATRIUM, PERC APPROACH [id number] 01/25/17 INSPECTION OF GASTROINTESTINAL TRACT, OPEN APPROACH [id number] 01/25/17 REMOVAL OF GALLBLADDER 97115 01/25/17 REOPENING OF ABDOMEN 53444 01/25/17 REPAIR STOMACH, OPEN APPROACH [id number] 01/25/17 RESECTION OF GALLBLADDER, OPEN APPROACH [id number] 01/25/17 RESPIRATORY VENTILATION, 24-96 CONSECUTIVE HOURS [id number] 05/28/17 RESPIRATORY VENTILATION, LESS THAN 24 CONSECUTIVE HOURS [id number] 01/25/17 STOMACH SURGERY PROCEDURE 47868 01/25/17 VENT MGMT INPAT INIT DAY 13327 01/25/17 Assessment/Plan - Problem List Patient Problems: All Active Problems H/O diabetes mellitus (Acute) Z86.39 H/O drug abuse (Acute) Z87.898 H/O: HTN (hypertension) (Acute) Z86.79 POSTCHOLECYSTECTOMY (Acute) UTI (urinary tract infection) (Acute) closeure og gastric perf (Acute) cplacement of new gj (Acute) h/o dementia (Acute) lysisi of adhesions (Acute) r/o sepsis (Acute) s/p surgery (Acute) septic shock (Acute) tachycardia (Acute) - Assessment Assessment: epigastric pain gastritis ostomy hole with discharge s/p cholecystectomy - Plan Plan: continue tpn empiric ivabx icu monitoring am labs monitor glucose cpm Nutritional Asmnt/Malnutr-PDOC - Dietary Evaluation Malnutrition Findings (Please click <Entered> for more info): Nutritional Asmnt/Malnutrition Start: 05/30/17 15: 01 Text: Status: Complete Freq: Document 05/30/17 15:01 IVANISMAEL (Rec: 05/30/17 15:47 [email or web address] [email or web address]) Nutritional Asmnt/Malnutrition Patient General Information Nutritional Screening High Risk Screening Diagnosis Abd pain, gastrocutaneous fistula, UTI, leukocytosis ( improved) Pertinent Medical Hx/Surgical Hx HTN, DM, cholecystectomy past January 2017 Subjective Information 71 year old female from SNF. Upper GI series today, RN stated possible surgeries pending. Pt was alert and pleasant, appeared anxious, aware of medical condition and TPN/nutrition plan of care. RD explained TPN again, pt has no further questions. Pt reported she has been on TPN since January 2017. Found SNF TPN order in transfer chart, noted under "dosing weight: 134.4lb," pt confirmed wt 130lb measured this month. Questionabled EMR weight, unable to obtain CBW due to bedscale not calibrated. Unable to compelte physical assessment due to heavy blankets. Pt report usual BM pattern once every 2-3 days, given laxative at SNF to promote BM every day. Current Diet Order/ Nutrition Support D25% AA4.25% at 40ml/hr with IL20% 200ml, providing 1359kcal, 40g protein Pertinent Medications Novolog, TPN, Morphine, Multivitamins, Zofran, Protonix, Nacl 0.9% Pertinent Labs 05/29: triglycerides 89 WNL 05/30: BUN 29H (improving), creatinine WNL, glucose 197H, total bilirubin WNL, A1c 6.5H Nutritional Hx/Data Height 1.73 m Height (Calculated Centimeters) 172.7 Current Weight (lbs) 66.678 kg Weight (Calculated Kilograms) 66.7 Weight (Calculated Grams) 10763.1 Usual body Weight (lbs) 130 [place] Body Weight 154 Weight Status Approriate GI Symptoms GI Symptoms Vomitting Cultural/Ethnic/[employer] Belief [facility]: Dextrose 288gm, AA96gm, IL 18g, 2010ml, providing 1525kcal. 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 Estimated Nutritional Goals Calories/Kcals/Kg UBW 130lb/59.1kg Kcals Calculated 1478-1773kcal (25-30kcal/kg) Protein Calculated 59-83g (1-1.4g/kg) Fluid: ml Per MD Nutritional Problem 1. 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 Recommend TPN D19% AA5.5% at 50ml/hr with IL20% 250ml, providing 1539kcal, 66g protein. Dx DM, 50% of total kcal from dextrose. Carb load 2.6mg/kg/min (using SNF weight 134.4lb/61.1kg). Pt has been on TPN since January 2017. 2. Obtain CBW, bedscale inproperly calibrated during visit. Dosing weight 134.4lb noted under [facility] TPN order. Pt stated UBW 130lb. Expected Outcomes/Goals Expected Outcomes/Goals 1. Pt to meet 100% of estimated nutritional needs on TPN with tolerance.
--- NOTE | 2017-06-05 10:34 | General Progress Note ---
Subjective - Review of Systems Service Date: 06/05/17 Events since last encounter: NGT out clear liquids OOB, ambulate Objective - Results Result Diagrams: 06/04/17 04:39 06/05/17 06:46 Recent Labs: Laboratory Last Values WBC 8.4 Th/cmm (4.8-10.8) D 06/04/17 04:39 RBC 3.14 Mil/cmm (3.80-5.20) L 06/04/17 04:39 Hgb 9.8 gm/dL (11.7-16.1) L 06/04/17 04:39 Hct 28.8 % (35.0-45.0) L 06/04/17 04:39 MCV 91.9 fl (81-100) 06/04/17 04:39 MCH 31.1 pg (27.0-31.0) H 06/04/17 04:39 MCHC Differential 33.8 pg (28.0-36.0) 06/04/17 04:39 RDW 15.1 % (11.5-20.0) 06/04/17 04:39 Plt Count 243 Th/cmm (150-400) 06/04/17 04:39 MPV 8.5 fl 06/04/17 04:39 Neutrophils % 69.8 % (40.0-80.0) 06/04/17 04:39 Band Neutrophils % 2 % (0-10) 06/02/17 07:25 Lymphocytes % 16.9 % (20.0-50.0) L 06/04/17 04:39 Monocytes % 8.0 % (2.0-10.0) 06/04/17 04:39 Eosinophils % 4.6 % (0.0-5.0) 06/04/17 04:39 Basophils % 0.7 % (0.0-2.0) 06/04/17 04:39 Neutrophils (Manual) 82 % (40-80) H 06/02/17 07:25 Lymphocytes 10 % (20-50) L 06/02/17 07:25 Monocytes 6 % (2-10) 06/02/17 07:25 Platelet Estimate ADEQUATE (NORMAL) 06/02/17 07:25 Platelet Morphology NORMAL (NORMAL) 06/02/17 07:25 Anisocytosis 1+ 06/02/17 07:25 RBC Morph Micro Appear ABNORMAL (NORMAL) 06/02/17 07:25 PT 11.0 SECONDS (9.5-11.5) 05/31/17 05:25 INR 1.06 (0.5-1.4) 05/31/17 05:25 Specimen Source Arterial 06/02/17 09:51 Sample Site Right Radial 06/02/17 09:51 pH 7.39 (7.35-7.45) 06/02/17 09:51 pCO2 43.0 mmHg (35.0-45.0) 06/02/17 09:51 pO2 144.0 mmHg (80.0-100.0) H 06/02/17 09:51 HCO3 25.6 mEq/L (20.0-26.0) 06/02/17 09:51 Base Excess 0.8 mEq/L (-3.0-3.0) 06/02/17 09:51 O2 Saturation 99.0 % (92.0-100.0) 06/02/17 09:51 Luther Test PASS 06/02/17 09:51 Vent Rate 6 06/01/17 08:44 Inspired O2 28 06/02/17 09:51 Tidal Volume 450 06/01/17 08:44 PEEP 5 06/01/17 08:44 Pressure (ins/psv/peep) 15 06/01/17 08:44 Critical Value PW 06/02/17 09:51 Sodium 134 mEq/L (136-145) L 06/05/17 06:46 Potassium 3.0 mEq/L (3.5-5.1) L 06/05/17 06:46 Chloride 99 mEq/L (98-107) 06/05/17 06:46 Carbon Dioxide 32.7 mEq/L (21.0-31.0) H 06/05/17 06:46 Anion Gap 5.3 (7.0-16.0) L 06/05/17 06:46 BUN 18 mg/dL (7-25) 06/05/17 06:46 Creatinine 0.9 mg/dL (0.6-1.2) 06/05/17 06:46 Est GFR ( Amer) > 60.0 ml/min (>90) 06/05/17 06:46 Est GFR (Non-Af Amer) > 60.0 ml/min 06/05/17 06:46 BUN/Creatinine Ratio 20.0 06/05/17 06:46 Glucose 205 mg/dL (70-105) H 06/05/17 06:46 POC Glucose 188 MG/DL (70 - 105) H 06/05/17 05:44 Hemoglobin A1c % 6.5 % (4.0-6.0) H 05/30/17 06:16 Whole Bld Lactic Acid 1.25 mmol/L (0.60-1.99) 05/28/17 16:22 Calcium 8.1 mg/dL (8.6-10.3) L 06/05/17 06:46 Phosphorus 2.9 mg/dL (2.5-5.0) 06/05/17 06:46 Magnesium 1.6 mg/dL (1.9-2.7) L 06/05/17 06:46 Total Bilirubin 0.5 mg/dL (0.3-1.0) 06/03/17 04:45 AST 15 U/L (13-39) 06/03/17 04:45 ALT 101 U/L (7-52) H 06/03/17 04:45 Alkaline Phosphatase 222 U/L (34-104) H 06/03/17 04:45 Troponin I 0.01 ng/mL (0.01-0.05) 05/28/17 16:22 Total Protein 5.0 gm/dL (6.0-8.3) L 06/03/17 04:45 Albumin 2.3 gm/dL (3.7-5.3) L 06/03/17 04:45 Globulin 2.7 gm/dL 06/03/17 04:45 Albumin/Globulin Ratio 0.9 (1.0-1.8) L 06/03/17 04:45 Prealbumin 11 mg/dL (10-36) 06/04/17 04:39 Triglycerides 79 mg/dL (<150) 05/31/17 05:25 Cholesterol 103 mg/dL (<200) 05/31/17 05:25 LDL Cholesterol Direct 78 mg/dL (75-193) 05/29/17 06:35 HDL Cholesterol 23 mg/dL (23-92) 05/29/17 06:35 Amylase 60 U/L (29-103) 05/28/17 16:22 Lipase 33 U/L (11-82) 05/28/17 16:22 TSH 1.14 uIU/ml (0.34-5.60) 05/29/17 06:35 Urine Source CATH 05/28/17 19:00 Urine Color YELLOW 05/28/17 19:00 Urine Clarity HAZY (CLEAR) 05/28/17 19:00 Urine pH 6.5 05/28/17 19:00 Ur Specific [place] 1.015 (1.005-1.030) 05/28/17 19:00 Urine Protein TRACE mg/dL (NEGATIVE) 05/28/17 19:00 Urine Glucose (UA) NEGATIVE mg/dL (NEGATIVE) 05/28/17 19:00 Urine Ketones NEGATIVE mg/dL (NEGATIVE) 05/28/17 19:00 Urine Blood TRACE (NEGATIVE) 05/28/17 19:00 Urine Nitrate NEGATIVE (NEGATIVE) 05/28/17 19:00 Urine Bilirubin NEGATIVE (NEGATIVE) 05/28/17 19:00 Urine Urobilinogen 0.2 E.U./dL (0.2 - 1.0) 05/28/17 19:00 Ur Leukocyte Esterase SMALL (NEGATIVE) H 05/28/17 19:00 Urine RBC 2-5 /hpf (0-5) 05/28/17 19:00 Urine WBC 50-100 /hpf (0-5) H 05/28/17 19:00 Ur Epithelial Cells FEW /lpf (FEW) 05/28/17 19:00 Urine Bacteria 1+ /hpf (NONE SEEN) H 05/28/17 19:00 Urine Mucus FEW /lpf (FEW) 05/28/17 19:00 Blood Type O POSITIVE 06/02/17 05:22 Antibody Screen NEGATIVE 06/02/17 05:22 Crossmatch See Detail 06/02/17 05:22 - Physical Exam Vitals and I&O: Vital Signs Temp 98.4 F 06/05/17 04:00 Pulse 111 06/05/17 09:12 Resp 18 06/05/17 08:00 BP 133/74 06/05/17 04:00 Pulse Ox 95 06/05/17 06:55 Intake & Output 06/04/17 06/05/17 06/05/17 18:59 06:59 18:59 Intake Total 3422.500 1200 Output Total 2652 2412 Balance 770.500 -1212 Weight (lbs) 72.575 kg 73.936 kg Intake: Intake, IV Amount 2722.500 400 Colistimethate 150 mg In 100 100 Sodium Chloride 0.9% 100 ml @ 100 mls/hr IV Q12HR [facility] Rx#:[id number] KCL 20mEq/100mL Premix 20 90.833 meq In 100 ml @ 50 mls/ hr IV Q2H [facility] Rx#: [id number] Linezolid 600mg/300mL 600 300 300 mg In 300 ml @ 300 mls/ hr IV Q12HR [facility] Rx#: [id number] Meropenem 1 gm In Sodium 100 Chloride 0.9% 100 ml @ 100 mls/hr IV Q8HR [facility] Rx #:[id number] Multivitamin Inj 10 ml In 1131.667 Dextrose 70% 490 ml In Amino Acids 10% 500 ml In Intralipids 20% 200 ml @ 50 mls/hr IV .Q24H [facility] Rx#:[id number] Sodium Chloride 0.9% 1, 1000 000 ml @ 125 mls/hr IV . Q8H [facility] Rx#:[id number] Oral 100 200 TPN/PPN 600 600 Output: Urine 2650 2400 Other 2 12 Other: # Bowel Movements 0 Active Medications: Current Medications Albuterol/Ipratropium (Duoneb Neb) 3 ml HHN Q4HRT [facility] Stop: 07/30/17 18:59 Last Admin: 06/05/17 06:41 Dose: 3 ml Budesonide (Pulmicort) 0.5 mg HHN BIDRT [facility] Stop: 07/30/17 18:59 Last Admin: 06/05/17 06:41 Dose: 0.5 mg Clonidine HCl (Catapres) 0.2 mg PO DAILY [facility] Stop: 07/28/17 08:59 Last Admin: 06/05/17 09:12 Dose: 0.2 mg Diltiazem HCl (Cardizem) 20 mg IVP Q3H PRN PRN Reason: HR => 120 bpm Stop: 07/30/17 21:14 Last Admin: 06/01/17 01:08 Dose: 20 mg Multivitamins/Minerals 10 ml/Dextrose/ Amino Acids/Electrolytes/ Fat Emulsion Intravenous 1,200 mls @ 50 mls/hr IV .Q24H [facility] Stop: 07/29/17 14:59 Last Admin: 06/04/17 16:35 Dose: 50 mls/hr Linezolid (Zyvox) 600 mg in 300 mls @ 300 mls/hr IV Q12HR [facility] Stop: 07/30/17 20:59 Last Admin: 06/05/17 09:10 Dose: 300 mls/hr Meropenem 1 gm/ Sodium (Chloride) 100 mls @ 100 mls/hr IV Q8HR [facility] Stop: 07/30/17 15:59 Last Admin: 06/05/17 02:55 Dose: 100 mls/hr Colistimethate Sodium 150 mg/ (Sodium Chloride) 100 mls @ 100 mls/hr IV Q12HR [facility] Stop: 07/30/17 20:59 Last Admin: 06/05/17 10:13 Dose: 100 mls/hr Sodium Chloride (Nacl 0.9%) 1,000 mls @ 125 mls/hr IV .Q8H [facility] Stop: 07/31/17 07:29 Last Infusion: 06/04/17 11:18 Dose: Infused Insulin Aspart (Novolog Insulin Sliding Scale) 0 units SUBQ ACHS [facility] PRN Reason: Protocol Stop: 07/31/17 07:29 Last Admin: 06/05/17 06:30 Dose: 4 units Lactobacillus Rhamnosus (Culturelle) 1 each PO DAILY [facility] Stop: 08/02/17 08:59 Last Admin: 06/05/17 09:11 Dose: 1 each Lorazepam (Ativan) 1 mg IVP Q6HR PRN; Protocol PRN Reason: Anxiety Stop: 07/31/17 07:30 Miscellaneous (Tpn Per Pharmacy) 1 ea MC DAILY [facility] Stop: 07/28/17 08:59 Miscellaneous (Probiotic Screen) 1 ea MC PRN PRN PRN Reason: PROTOCOL Stop: 08/01/17 11:22 Morphine Sulfate (Morphine) 2 mg IVP Q4HR PRN PRN Reason: Abdominal Pain Stop: 07/30/17 14:36 Last Admin: 06/05/17 06:27 Dose: 2 mg Morphine Sulfate (Morphine) 2 mg IV Q3HR PRN PRN Reason: Severe Pain Stop: 07/30/17 17:08 Last Admin: 06/01/17 04:53 Dose: 2 mg Ondansetron HCl (Zofran) 4 mg IV Q4H PRN PRN Reason: Nausea / Vomiting Stop: 08/02/17 20:54 Pantoprazole Sodium (Protonix) 40 mg IVP BID [facility] Stop: 07/30/17 16:59 Last Admin: 06/05/17 09:11 Dose: Not Given General: No acute distress HEENT: Atraumatic Cardiovascular: Regular rate, Normal S1, Normal S2 Abdomen: Bowel sounds, Soft Neurological: Other (weak) - Procedures Procedures: Procedures Procedure Code Date BYPASS STOMACH TO JEJUNUM, OPEN APPROACH [id number] 05/28/17 DRAINAGE OF PERITONEAL CAVITY WITH DRAIN DEV, OPEN APPROACH [id number] 01/25/17 FUSION OF STOMACH AND BOWEL [id number] 05/28/17 INSERT INFUSION DEV IN R INT JUGULAR VEIN, PERC [id number] 01/25/17 INSERTION OF INFUSION DEVICE INTO R [facility], PERC APPROACH [id number] 01/25/17 INSPECTION OF GASTROINTESTINAL TRACT, OPEN APPROACH [id number] 01/25/17 REMOVAL OF GALLBLADDER [id number] 01/25/17 REOPENING OF ABDOMEN [id number] 01/25/17 REPAIR STOMACH, OPEN APPROACH [id number] 01/25/17 RESECTION OF GALLBLADDER, OPEN APPROACH [id number] 01/25/17 RESPIRATORY VENTILATION, 24-96 CONSECUTIVE HOURS [id number] 05/28/17 RESPIRATORY VENTILATION, LESS THAN 24 CONSECUTIVE HOURS [id number] 01/25/17 STOMACH SURGERY PROCEDURE [id number] 01/25/17 VENT MGMT INPAT INIT DAY 75145 01/25/17 Assessment/Plan - Problem List Patient Problems: All Active Problems H/O diabetes mellitus (Acute) Z86.39 H/O drug abuse (Acute) Z87.898 H/O: HTN (hypertension) (Acute) Z86.79 POSTCHOLECYSTECTOMY (Acute) UTI (urinary tract infection) (Acute) closeure og gastric perf (Acute) cplacement of new gj (Acute) h/o dementia (Acute) lysisi of adhesions (Acute) r/o sepsis (Acute) s/p surgery (Acute) septic shock (Acute) tachycardia (Acute) Nutritional Asmnt/Malnutr-PDOC - Dietary Evaluation Malnutrition Findings (Please click <Entered> for more info): Nutritional Asmnt/Malnutrition Start: 05/30/17 15: 01 Text: Status: Complete Freq: Document 05/30/17 15:01 CHLOE (Rec: 05/30/17 15:47 [id number]) Nutritional Asmnt/Malnutrition Patient General Information Nutritional Screening High Risk Screening Diagnosis Abd pain, gastrocutaneous fistula, UTI, leukocytosis ( improved) Pertinent Medical Hx/Surgical Hx HTN, DM, cholecystectomy past January 2017 Subjective Information 71 year old female from SNF. Upper GI series today, RN stated possible surgeries pending. Pt was alert and pleasant, appeared anxious, aware of medical condition and TPN/nutrition plan of care. RD explained TPN again, pt has no further questions. Pt reported she has been on TPN since January 2017. Found SNF TPN order in transfer chart, noted under "dosing weight: 134.4lb," pt confirmed wt 130lb measured this month. Questionabled EMR weight, unable to obtain CBW due to bedscale not calibrated. Unable to compelte physical assessment due to heavy blankets. Pt report usual BM pattern once every 2-3 days, given laxative at SNF to promote BM every day. Current Diet Order/ Nutrition Support D25% AA4.25% at 40ml/hr with IL20% 200ml, providing 1359kcal, 40g protein Pertinent Medications Novolog, TPN, Morphine, Multivitamins, Zofran, Protonix, Nacl 0.9% Pertinent Labs 05/29: triglycerides 89 WNL 05/30: BUN 29H (improving), creatinine WNL, glucose 197H, total bilirubin WNL, A1c 6.5H Nutritional Hx/Data Height 1.73 m Height (Calculated Centimeters) 172.7 Current Weight (lbs) 66.678 kg Weight (Calculated Kilograms) 66.7 Weight (Calculated Grams) 65193.1 Usual body Weight (lbs) 130 [place] Body Weight 154 Weight Status Approriate GI Symptoms GI Symptoms Vomitting Cultural/Ethnic/Buddhism Belief [facility]: Dextrose 288gm, AA96gm, IL 18g, 2010ml, providing 1525kcal. Skin Integrity/Comment: Asad Eid. nnp: abdomen rash/fistula, otherwise skin intact. Estimated Nutritional Goals Calories/Kcals/Kg UBW 130lb/59.1kg Kcals Calculated 1478-1773kcal (25-30kcal/kg) Protein Calculated 59-83g (1-1.4g/kg) Fluid: ml Per MD Nutritional Problem 1. 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 Recommend TPN D19% AA5.5% at 50ml/hr with IL20% 250ml, providing 1539kcal, 66g protein. Dx DM, 50% of total kcal from dextrose. Carb load 2.6mg/kg/min (using SNF weight 134.4lb/61.1kg). Pt has been on TPN since January 2017. 2. Obtain CBW, bedscale inproperly calibrated during visit. Dosing weight 134.4lb noted under SNF TPN order. Pt stated UBW 130lb. Expected Outcomes/Goals Expected Outcomes/Goals 1. Pt to meet 100% of estimated nutritional needs on TPN with tolerance.
[2017-06-05] MEDS: Sodium Chloride 0.9% 1,000 ML IV SCH ×2 (11:27→16:14)
--- NOTE | 2017-06-05 13:27 | Internal Medicine Prog Note ---
Internal Medicine Subjective - Subjective Service Date: 06/05/17 Patient seen and examined:: with staff Patient is:: awake Per staff patient has:: no adverse event Internal Medicine Objective - Results Result Diagrams: 06/04/17 04:39 06/05/17 06:46 Recent Labs: Laboratory Last Values WBC 8.4 Th/cmm (4.8-10.8) D 06/04/17 04:39 RBC 3.14 Mil/cmm (3.80-5.20) L 06/04/17 04:39 Hgb 9.8 gm/dL (11.7-16.1) L 06/04/17 04:39 Hct 28.8 % (35.0-45.0) L 06/04/17 04:39 MCV 91.9 fl (81-100) 06/04/17 04:39 MCH 31.1 pg (27.0-31.0) H 06/04/17 04:39 MCHC Differential 33.8 pg (28.0-36.0) 06/04/17 04:39 RDW 15.1 % (11.5-20.0) 06/04/17 04:39 Plt Count 243 Th/cmm (150-400) 06/04/17 04:39 MPV 8.5 fl 06/04/17 04:39 Neutrophils % 69.8 % (40.0-80.0) 06/04/17 04:39 Band Neutrophils % 2 % (0-10) 06/02/17 07:25 Lymphocytes % 16.9 % (20.0-50.0) L 06/04/17 04:39 Monocytes % 8.0 % (2.0-10.0) 06/04/17 04:39 Eosinophils % 4.6 % (0.0-5.0) 06/04/17 04:39 Basophils % 0.7 % (0.0-2.0) 06/04/17 04:39 Neutrophils (Manual) 82 % (40-80) H 06/02/17 07:25 Lymphocytes 10 % (20-50) L 06/02/17 07:25 Monocytes 6 % (2-10) 06/02/17 07:25 Platelet Estimate ADEQUATE (NORMAL) 06/02/17 07:25 Platelet Morphology NORMAL (NORMAL) 06/02/17 07:25 Anisocytosis 1+ 06/02/17 07:25 RBC Morph Micro Appear ABNORMAL (NORMAL) 06/02/17 07:25 PT 11.0 SECONDS (9.5-11.5) 05/31/17 05:25 INR 1.06 (0.5-1.4) 05/31/17 05:25 Specimen Source Arterial 06/02/17 09:51 Sample Site Right Radial 06/02/17 09:51 pH 7.39 (7.35-7.45) 06/02/17 09:51 pCO2 43.0 mmHg (35.0-45.0) 06/02/17 09:51 pO2 144.0 mmHg (80.0-100.0) H 06/02/17 09:51 HCO3 25.6 mEq/L (20.0-26.0) 06/02/17 09:51 Base Excess 0.8 mEq/L (-3.0-3.0) 06/02/17 09:51 O2 Saturation 99.0 % (92.0-100.0) 06/02/17 09:51 Luther Test PASS 06/02/17 09:51 Vent Rate 6 06/01/17 08:44 Inspired O2 28 06/02/17 09:51 Tidal Volume 450 06/01/17 08:44 PEEP 5 06/01/17 08:44 Pressure (ins/psv/peep) 15 06/01/17 08:44 Critical Value PW 06/02/17 09:51 Sodium 134 mEq/L (136-145) L 06/05/17 06:46 Potassium 3.0 mEq/L (3.5-5.1) L 06/05/17 06:46 Chloride 99 mEq/L (98-107) 06/05/17 06:46 Carbon Dioxide 32.7 mEq/L (21.0-31.0) H 06/05/17 06:46 Anion Gap 5.3 (7.0-16.0) L 06/05/17 06:46 BUN 18 mg/dL (7-25) 06/05/17 06:46 Creatinine 0.9 mg/dL (0.6-1.2) 06/05/17 06:46 Est GFR ( Amer) > 60.0 ml/min (>90) 06/05/17 06:46 Est GFR (Non-Af Amer) > 60.0 ml/min 06/05/17 06:46 BUN/Creatinine Ratio 20.0 06/05/17 06:46 Glucose 205 mg/dL (70-105) H 06/05/17 06:46 POC Glucose 219 MG/DL (70 - 105) H 06/05/17 11:23 Hemoglobin A1c % 6.5 % (4.0-6.0) H 05/30/17 06:16 Whole Bld Lactic Acid 1.25 mmol/L (0.60-1.99) 05/28/17 16:22 Calcium 8.1 mg/dL (8.6-10.3) L 06/05/17 06:46 Phosphorus 2.9 mg/dL (2.5-5.0) 06/05/17 06:46 Magnesium 1.6 mg/dL (1.9-2.7) L 06/05/17 06:46 Total Bilirubin 0.5 mg/dL (0.3-1.0) 06/03/17 04:45 AST 15 U/L (13-39) 06/03/17 04:45 ALT 101 U/L (7-52) H 06/03/17 04:45 Alkaline Phosphatase 222 U/L (34-104) H 06/03/17 04:45 Troponin I 0.01 ng/mL (0.01-0.05) 05/28/17 16:22 Total Protein 5.0 gm/dL (6.0-8.3) L 06/03/17 04:45 Albumin 2.3 gm/dL (3.7-5.3) L 06/03/17 04:45 Globulin 2.7 gm/dL 06/03/17 04:45 Albumin/Globulin Ratio 0.9 (1.0-1.8) L 06/03/17 04:45 Prealbumin 11 mg/dL (10-36) 06/04/17 04:39 Triglycerides 79 mg/dL (<150) 05/31/17 05:25 Cholesterol 103 mg/dL (<200) 05/31/17 05:25 LDL Cholesterol Direct 78 mg/dL (75-193) 05/29/17 06:35 HDL Cholesterol 23 mg/dL (23-92) 05/29/17 06:35 Amylase 60 U/L (29-103) 05/28/17 16:22 Lipase 33 U/L (11-82) 05/28/17 16:22 TSH 1.14 uIU/ml (0.34-5.60) 05/29/17 06:35 Urine Source CATH 05/28/17 19:00 Urine Color YELLOW 05/28/17 19:00 Urine Clarity HAZY (CLEAR) 05/28/17 19:00 Urine pH 6.5 05/28/17 19:00 Ur Specific [place] 1.015 (1.005-1.030) 05/28/17 19:00 Urine Protein TRACE mg/dL (NEGATIVE) 05/28/17 19:00 Urine Glucose (UA) NEGATIVE mg/dL (NEGATIVE) 05/28/17 19:00 Urine Ketones NEGATIVE mg/dL (NEGATIVE) 05/28/17 19:00 Urine Blood TRACE (NEGATIVE) 05/28/17 19:00 Urine Nitrate NEGATIVE (NEGATIVE) 05/28/17 19:00 Urine Bilirubin NEGATIVE (NEGATIVE) 05/28/17 19:00 Urine Urobilinogen 0.2 E.U./dL (0.2 - 1.0) 05/28/17 19:00 Ur Leukocyte Esterase SMALL (NEGATIVE) H 05/28/17 19:00 Urine RBC 2-5 /hpf (0-5) 05/28/17 19:00 Urine WBC 50-100 /hpf (0-5) H 05/28/17 19:00 Ur Epithelial Cells FEW /lpf (FEW) 05/28/17 19:00 Urine Bacteria 1+ /hpf (NONE SEEN) H 05/28/17 19:00 Urine Mucus FEW /lpf (FEW) 05/28/17 19:00 Blood Type O POSITIVE 06/02/17 05:22 Antibody Screen NEGATIVE 06/02/17 05:22 Crossmatch See Detail 06/02/17 05:22 - Physical Exam Vitals and I&O: Vital Signs Temp 98.4 F 06/05/17 04:00 Pulse 101 06/05/17 10:46 Resp 16 06/05/17 10:46 BP 109/57 06/05/17 10:12 Pulse Ox 95 06/05/17 10:46 Intake & Output 06/04/17 06/05/17 06/05/17 18:59 06:59 18:59 Intake Total 3422.500 1300 300 Output Total 2652 2412 Balance 770.500 -1112 300 Weight (lbs) 72.575 kg 73.936 kg Intake: Intake, IV Amount 2722.500 500 300 Colistimethate 150 mg In 100 100 Sodium Chloride 0.9% 100 ml @ 100 mls/hr IV Q12HR [facility] Rx#:[id number] KCL 20mEq/100mL Premix 20 90.833 meq In 100 ml @ 50 mls/ hr IV Q2H [facility] Rx#: [id number] Linezolid 600mg/300mL 600 300 300 300 mg In 300 ml @ 300 mls/ hr IV Q12HR [facility] Rx#: [id number] Meropenem 1 gm In Sodium 100 100 Chloride 0.9% 100 ml @ 100 mls/hr IV Q8HR [facility] Rx #:[id number] Multivitamin Inj 10 ml In 1131.667 Dextrose 70% 490 ml In Amino Acids 10% 500 ml In Intralipids 20% 200 ml @ 50 mls/hr IV .Q24H [facility] Rx#:[id number] Sodium Chloride 0.9% 1, 1000 000 ml @ 125 mls/hr IV . Q8H [facility] Rx#:[id number] Oral 100 200 TPN/PPN 600 600 Output: Urine 2650 2400 Other 2 12 Other: # Bowel Movements 0 Active Medications: Current Medications Albuterol/Ipratropium (Duoneb Neb) 3 ml HHN Q4HRT [facility] Stop: 07/30/17 18:59 Last Admin: 06/05/17 10:35 Dose: 3 ml Budesonide (Pulmicort) 0.5 mg HHN BIDRT [facility] Stop: 07/30/17 18:59 Last Admin: 06/05/17 06:41 Dose: 0.5 mg Clonidine HCl (Catapres) 0.2 mg PO DAILY [facility] Stop: 07/28/17 08:59 Last Admin: 06/05/17 09:12 Dose: 0.2 mg Diltiazem HCl (Cardizem) 20 mg IVP Q3H PRN PRN Reason: HR => 120 bpm Stop: 07/30/17 21:14 Last Admin: 06/01/17 01:08 Dose: 20 mg Multivitamins/Minerals 10 ml/Dextrose/ Amino Acids/Electrolytes/ Fat Emulsion Intravenous 1,200 mls @ 50 mls/hr IV .Q24H ANISH Stop: 07/29/17 14:59 Last Admin: 06/04/17 16:35 Dose: 50 mls/hr Linezolid (Zyvox) 600 mg in 300 mls @ 300 mls/hr IV Q12HR [facility] Stop: 07/30/17 20:59 Last Infusion: 06/05/17 10:10 Dose: Infused Meropenem 1 gm/ Sodium (Chloride) 100 mls @ 100 mls/hr IV Q8HR [facility] Stop: 07/30/17 15:59 Last Admin: 06/05/17 11:19 Dose: 100 mls/hr Colistimethate Sodium 150 mg/ (Sodium Chloride) 100 mls @ 100 mls/hr IV Q12HR [facility] Stop: 07/30/17 20:59 Last Admin: 06/05/17 10:13 Dose: 100 mls/hr Sodium Chloride (Nacl 0.9%) 1,000 mls @ 125 mls/hr IV .Q8H ANISH Stop: 07/31/17 07:29 Last Admin: 06/05/17 11:27 Dose: 125 mls/hr Insulin Aspart (Novolog Insulin Sliding Scale) 0 units SUBQ ACHS ANISH PRN Reason: Protocol Stop: 07/31/17 07:29 Last Admin: 06/05/17 13:08 Dose: 6 units Lactobacillus Rhamnosus (Culturelle) 1 each PO DAILY ANISH Stop: 08/02/17 08:59 Last Admin: 06/05/17 09:11 Dose: 1 each Lorazepam (Ativan) 1 mg IVP Q6HR PRN; Protocol PRN Reason: Anxiety Stop: 07/31/17 07:30 Miscellaneous (Tpn Per Pharmacy) 1 ea MC DAILY ANISH Stop: 07/28/17 08:59 Miscellaneous (Probiotic Screen) 1 ea PRN PRN PRN Reason: PROTOCOL Stop: 08/01/17 11:22 Morphine Sulfate (Morphine) 2 mg IVP Q4HR PRN PRN Reason: Abdominal Pain Stop: 07/30/17 14:36 Last Admin: 06/05/17 11:19 Dose: 2 mg Morphine Sulfate (Morphine) 2 mg IV Q3HR PRN PRN Reason: Severe Pain Stop: 07/30/17 17:08 Last Admin: 06/01/17 04:53 Dose: 2 mg Ondansetron HCl (Zofran) 4 mg IV Q4H PRN PRN Reason: Nausea / Vomiting Stop: 08/02/17 20:54 Pantoprazole Sodium (Protonix) 40 mg IVP BID [facility] Stop: 07/30/17 16:59 Last Admin: 06/05/17 09:11 Dose: Not Given Pantoprazole Sodium (Protonix) 40 mg PO BID [facility] Stop: 08/04/17 16:59 General: weak, alert HEENT: NC/AT, PERRLA Neck: Supple Lungs: CTAB Cardiovascular: RRR, Normal S1, Normal S2, without murmur Abdomen: soft, non-tender, non-distended Extremities: clear Neurological: no change - Procedures Procedures: Procedures Procedure Code Date BYPASS STOMACH TO JEJUNUM, OPEN APPROACH [id number] 05/28/17 DRAINAGE OF PERITONEAL CAVITY WITH DRAIN DEV, OPEN APPROACH [id number] 01/25/17 FUSION OF STOMACH AND BOWEL 21349 05/28/17 INSERT INFUSION DEV IN R INT JUGULAR VEIN, PERC [id number] 01/25/17 INSERTION OF INFUSION DEVICE INTO R ATRIUM, PERC APPROACH [id number] 01/25/17 INSPECTION OF GASTROINTESTINAL TRACT, OPEN APPROACH [id number] 01/25/17 REMOVAL OF GALLBLADDER 79052 01/25/17 REOPENING OF ABDOMEN 16994 01/25/17 REPAIR STOMACH, OPEN APPROACH [id number] 01/25/17 RESECTION OF GALLBLADDER, OPEN APPROACH [id number] 01/25/17 RESPIRATORY VENTILATION, 24-96 CONSECUTIVE HOURS [id number] 05/28/17 RESPIRATORY VENTILATION, LESS THAN 24 CONSECUTIVE HOURS [id number] 01/25/17 STOMACH SURGERY PROCEDURE 99206 01/25/17 VENT MGMT INPAT INIT DAY 80218 01/25/17 Internal Medicine Assmt/Plan - Assessment Assessment: epigastric pain gastritis ostomy hole with discharge s/p cholecystectomy - Plan Plan: continue tpn empiric ivabx am labs monitor glucose cpm Nutritional Asmnt/Malnutr-PDOC - Dietary Evaluation Malnutrition Findings (Please click <Entered> for more info): Nutritional Asmnt/Malnutrition Start: 05/30/17 15: 01 Text: Status: Complete Freq: Document 05/30/17 15:01 GSUN (Rec: 05/30/17 15:47 [email or web address] [id number]) Nutritional Asmnt/Malnutrition Patient General Information Nutritional Screening High Risk Screening Diagnosis Abd pain, gastrocutaneous fistula, UTI, leukocytosis ( improved) Pertinent Medical Hx/Surgical Hx HTN, DM, cholecystectomy past January 2017 Subjective Information 71 year old female from SNF. Upper GI series today, RN stated possible surgeries pending. Pt was alert and pleasant, appeared anxious, aware of medical condition and TPN/nutrition plan of care. RD explained TPN again, pt has no further questions. Pt reported she has been on TPN since January 2017. Found SNF TPN order in transfer chart, noted under "dosing weight: 134.4lb," pt confirmed wt 130lb measured this month. Questionabled EMR weight, unable to obtain CBW due to bedscale not calibrated. Unable to compelte physical assessment due to heavy blankets. Pt report usual BM pattern once every 2-3 days, given laxative at SNF to promote BM every day. Current Diet Order/ Nutrition Support D25% AA4.25% at 40ml/hr with IL20% 200ml, providing 1359kcal, 40g protein Pertinent Medications Novolog, TPN, Morphine, Multivitamins, Zofran, Protonix, Nacl 0.9% Pertinent Labs 05/29: triglycerides 89 WNL 05/30: BUN 29H (improving), creatinine WNL, glucose 197H, total bilirubin WNL, A1c 6.5H Nutritional Hx/Data Height 1.73 m Height (Calculated Centimeters) 172.7 Current Weight (lbs) 66.678 kg Weight (Calculated Kilograms) 66.7 Weight (Calculated Grams) 08819.1 Usual body Weight (lbs) 130 [place] Body Weight 154 Weight Status Approriate GI Symptoms GI Symptoms Vomitting Cultural/Ethnic/[employer] Belief [facility]: Dextrose 288gm, AA96gm, IL 18g, 2010ml, providing 1525kcal. Skin Integrity/Comment: Asad Eid. [employer] tobacco: abdomen rash/fistula, otherwise skin intact. Estimated Nutritional Goals Calories/Kcals/Kg UBW 130lb/59.1kg Kcals Calculated 1478-1773kcal (25-30kcal/kg) Protein Calculated 59-83g (1-1.4g/kg) Fluid: ml Per MD Nutritional Problem 1. 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 Recommend TPN D19% AA5.5% at 50ml/hr with IL20% 250ml, providing 1539kcal, 66g protein. Dx DM, 50% of total kcal from dextrose. Carb load 2.6mg/kg/min (using SNF weight 134.4lb/61.1kg). Pt has been on TPN since January 2017. 2. Obtain CBW, bedscale inproperly calibrated during visit. Dosing weight 134.4lb noted under SNF TPN order. Pt stated UBW 130lb. Expected Outcomes/Goals Expected Outcomes/Goals 1. Pt to meet 100% of estimated nutritional needs on TPN with tolerance.
[2017-06-05] MEDS: Potassium Chloride 20 mEq ER Tab PO ONE ×2 (15:48→16:08)
[2017-06-05] MEDS: TPN 10%-70% CUSTOM IV SCH (16:45)
[2017-06-05] MEDS: Pantoprazole 40 mg EC Tab PO SCH (16:51)
[2017-06-05] MEDS: Morphine Sulfate 2 mg/mL 1mL Syr IV PRN (21:22)
[2017-06-06] MEDS: Meropenem 1 GM in Sodium Chloride 0.9% 100 ML IV SCH ×5 (01:39→20:40)
[2017-06-06] MEDS: Morphine Sulfate 2 mg/mL 1mL Syr IVP PRN ×4 (02:40→20:40)
[2017-06-06] MEDS: Albuterol/Ipratropium Neb 3 ML AERS HHN SCH ×6 (03:22→23:23)
[2017-06-06] MEDS: Sodium Chloride 0.9% 1,000 ML IV SCH ×3 (05:55→20:41)
[2017-06-06 06:14] LABS: % BASOPHILS 0.1 % (0.0-2.0); % EOSINOPHILS 6.1 % (0.0-5.0); % LYMPHOCYTES 17.1 % (20.0-50.0); % NEUTROPHILS 65.7 % (40.0-80.0); HEMATOCRIT 28.7 % (35.0-45.0); HEMOGLOBIN 9.6 gm/dL (11.7-16.1); MEAN CELL VOLUME 91.7 fl (81-100); MEAN CORPUSCULAR HEMOGLOBIN 30.9 pg (27.0-31.0); MEAN CORPUSCULAR HGB CONC 33.6 pg (28.0-36.0); MEAN PLATELET VOLUME 7.7 fl; NEUTROPHILE ABSOLUTE 4.9 Th/cmm (1.8-8.0); PLATELET COUNT 207 Th/cmm (150-400); RED BLOOD COUNT 3.13 Mil/cmm (3.80-5.20); RED CELL DISTRIBUTION WIDTH 14.2 % (11.5-20.0); WHITE BLOOD COUNT 7.5 Th/cmm (4.8-10.8)
[2017-06-06 06:24] LABS: ANION GAP 6.3 (7.0-16.0); BUN - UREA NITROGEN 19 mg/dL (7-25); CALCIUM SERUM 8.2 mg/dL (8.6-10.3); CARBON DIOXIDE 32.1 mEq/L (21.0-31.0); CHLORIDE 98 mEq/L (98-107); GLUCOSE 203 mg/dL (70-105); MAGNESIUM 1.9 mg/dL (1.9-2.7); PHOSPHOROUS 3.1 mg/dL (2.5-5.0); POTASSIUM SERUM 3.4 mEq/L (3.5-5.1); SODIUM SERUM 133 mEq/L (136-145)
[2017-06-06] MEDS: INSULIN ASPART SLIDING SCALE 100 UNITS/ML UNIT SUBQ SCH ×4 (06:42→21:46)
[2017-06-06] MEDS: Budesonide 0.5 Mg/2 mL Ud HHN SCH ×2 (06:59→19:35)
--- NOTE | 2017-06-06 07:48 | General Progress Note ---
Subjective - Review of Systems Events since last encounter: NGT out clear liquids no distress Subjective: awake, alert, tolerating diet Objective - Results Result Diagrams: 06/06/17 06:00 06/06/17 06:00 Recent Labs: Laboratory Last Values WBC 7.5 Th/cmm (4.8-10.8) 06/06/17 06:00 RBC 3.13 Mil/cmm (3.80-5.20) L 06/06/17 06:00 Hgb 9.6 gm/dL (11.7-16.1) L 06/06/17 06:00 Hct 28.7 % (35.0-45.0) L 06/06/17 06:00 MCV 91.7 fl (81-100) 06/06/17 06:00 MCH 30.9 pg (27.0-31.0) 06/06/17 06:00 MCHC Differential 33.6 pg (28.0-36.0) 06/06/17 06:00 RDW 14.2 % (11.5-20.0) 06/06/17 06:00 Plt Count 207 Th/cmm (150-400) 06/06/17 06:00 MPV 7.7 fl 06/06/17 06:00 Neutrophils % 65.7 % (40.0-80.0) 06/06/17 06:00 Band Neutrophils % 2 % (0-10) 06/02/17 07:25 Lymphocytes % 17.1 % (20.0-50.0) L 06/06/17 06:00 Monocytes % 11.0 % (2.0-10.0) H 06/06/17 06:00 Eosinophils % 6.1 % (0.0-5.0) H 06/06/17 06:00 Basophils % 0.1 % (0.0-2.0) 06/06/17 06:00 Neutrophils (Manual) 82 % (40-80) H 06/02/17 07:25 Lymphocytes 10 % (20-50) L 06/02/17 07:25 Monocytes 6 % (2-10) 06/02/17 07:25 Platelet Estimate ADEQUATE (NORMAL) 06/02/17 07:25 Platelet Morphology NORMAL (NORMAL) 06/02/17 07:25 Anisocytosis 1+ 06/02/17 07:25 RBC Morph Micro Appear ABNORMAL (NORMAL) 06/02/17 07:25 PT 11.0 SECONDS (9.5-11.5) 05/31/17 05:25 INR 1.06 (0.5-1.4) 05/31/17 05:25 Specimen Source Arterial 06/02/17 09:51 Sample Site Right Radial 06/02/17 09:51 pH 7.39 (7.35-7.45) 06/02/17 09:51 pCO2 43.0 mmHg (35.0-45.0) 06/02/17 09:51 pO2 144.0 mmHg (80.0-100.0) H 06/02/17 09:51 HCO3 25.6 mEq/L (20.0-26.0) 06/02/17 09:51 Base Excess 0.8 mEq/L (-3.0-3.0) 06/02/17 09:51 O2 Saturation 99.0 % (92.0-100.0) 06/02/17 09:51 Luther Test PASS 06/02/17 09:51 Vent Rate 6 06/01/17 08:44 Inspired O2 28 06/02/17 09:51 Tidal Volume 450 06/01/17 08:44 PEEP 5 06/01/17 08:44 Pressure (ins/psv/peep) 15 06/01/17 08:44 Critical Value PW 06/02/17 09:51 Sodium 133 mEq/L (136-145) L 06/06/17 06:00 Potassium 3.4 mEq/L (3.5-5.1) L 06/06/17 06:00 Chloride 98 mEq/L (98-107) 06/06/17 06:00 Carbon Dioxide 32.1 mEq/L (21.0-31.0) H 06/06/17 06:00 Anion Gap 6.3 (7.0-16.0) L 06/06/17 06:00 BUN 19 mg/dL (7-25) 06/06/17 06:00 Creatinine 1.0 mg/dL (0.6-1.2) 06/06/17 06:00 Est GFR ( Amer) > 60.0 ml/min (>90) 06/06/17 06:00 Est GFR (Non-Af Amer) 58.4 ml/min 06/06/17 06:00 BUN/Creatinine Ratio 19.0 06/06/17 06:00 Glucose 203 mg/dL (70-105) H 06/06/17 06:00 POC Glucose 211 MG/DL (70 - 105) H 06/06/17 06:33 Hemoglobin A1c % 6.5 % (4.0-6.0) H 05/30/17 06:16 Whole Bld Lactic Acid 1.25 mmol/L (0.60-1.99) 05/28/17 16:22 Calcium 8.2 mg/dL (8.6-10.3) L 06/06/17 06:00 Phosphorus 3.1 mg/dL (2.5-5.0) 06/06/17 06:00 Magnesium 1.9 mg/dL (1.9-2.7) 06/06/17 06:00 Total Bilirubin 0.5 mg/dL (0.3-1.0) 06/03/17 04:45 AST 15 U/L (13-39) 06/03/17 04:45 ALT 101 U/L (7-52) H 06/03/17 04:45 Alkaline Phosphatase 222 U/L (34-104) H 06/03/17 04:45 Troponin I 0.01 ng/mL (0.01-0.05) 05/28/17 16:22 Total Protein 5.0 gm/dL (6.0-8.3) L 06/03/17 04:45 Albumin 2.3 gm/dL (3.7-5.3) L 06/03/17 04:45 Globulin 2.7 gm/dL 06/03/17 04:45 Albumin/Globulin Ratio 0.9 (1.0-1.8) L 06/03/17 04:45 Prealbumin 11 mg/dL (10-36) 06/04/17 04:39 Triglycerides 79 mg/dL (<150) 05/31/17 05:25 Cholesterol 103 mg/dL (<200) 05/31/17 05:25 LDL Cholesterol Direct 78 mg/dL (75-193) 05/29/17 06:35 HDL Cholesterol 23 mg/dL (23-92) 05/29/17 06:35 Amylase 60 U/L (29-103) 05/28/17 16:22 Lipase 33 U/L (11-82) 05/28/17 16:22 TSH 1.14 uIU/ml (0.34-5.60) 05/29/17 06:35 Urine Source CATH 05/28/17 19:00 Urine Color YELLOW 05/28/17 19:00 Urine Clarity HAZY (CLEAR) 05/28/17 19:00 Urine pH 6.5 05/28/17 19:00 Ur Specific [place] 1.015 (1.005-1.030) 05/28/17 19:00 Urine Protein TRACE mg/dL (NEGATIVE) 05/28/17 19:00 Urine Glucose (UA) NEGATIVE mg/dL (NEGATIVE) 05/28/17 19:00 Urine Ketones NEGATIVE mg/dL (NEGATIVE) 05/28/17 19:00 Urine Blood TRACE (NEGATIVE) 05/28/17 19:00 Urine Nitrate NEGATIVE (NEGATIVE) 05/28/17 19:00 Urine Bilirubin NEGATIVE (NEGATIVE) 05/28/17 19:00 Urine Urobilinogen 0.2 E.U./dL (0.2 - 1.0) 05/28/17 19:00 Ur Leukocyte Esterase SMALL (NEGATIVE) H 05/28/17 19:00 Urine RBC 2-5 /hpf (0-5) 05/28/17 19:00 Urine WBC 50-100 /hpf (0-5) H 05/28/17 19:00 Ur Epithelial Cells FEW /lpf (FEW) 05/28/17 19:00 Urine Bacteria 1+ /hpf (NONE SEEN) H 05/28/17 19:00 Urine Mucus FEW /lpf (FEW) 05/28/17 19:00 Blood Type O POSITIVE 06/02/17 05:22 Antibody Screen NEGATIVE 06/02/17 05:22 Crossmatch See Detail 06/02/17 05:22 - Physical Exam Vitals and I&O: Vital Signs Temp 98.0 F 06/06/17 03:58 Pulse 63 06/06/17 07:15 Resp 14 06/06/17 07:15 BP 116/57 06/06/17 03:58 Pulse Ox 99 06/06/17 07:15 Intake & Output 06/05/17 06/06/17 06/06/17 18:59 06:59 18:59 Intake Total 2297.917 2595.833 Output Total 2110 Balance 2297.917 485.833 Weight (lbs) 73.936 kg Intake: Intake, IV Amount 2297.917 1595.833 Colistimethate 150 mg In 100 100 Sodium Chloride 0.9% 100 ml @ 100 mls/hr IV Q12HR [facility] Rx#:[id number] Linezolid 600mg/300mL 600 300 300 mg In 300 ml @ 300 mls/ hr IV Q12HR [facility] Rx#: [id number] Meropenem 1 gm In Sodium 100 100 Chloride 0.9% 100 ml @ 100 mls/hr IV Q8HR [facility] Rx #:[id number] Multivitamin Inj 10 ml In 1200 Dextrose 70% 490 ml In Amino Acids 10% 500 ml In Intralipids 20% 200 ml @ 50 mls/hr IV .Q24H [facility] Rx#:[id number] Sodium Chloride 0.9% 1, 737.182 0518.833 000 ml @ 125 mls/hr IV . Q8H [facility] Rx#:[id number] Oral 400 TPN/PPN 600 Output: Urine 2100 Other 10 Other: # Bowel Movements 0 Active Medications: Current Medications Albuterol/Ipratropium (Duoneb Neb) [address] [facility] Stop: 07/30/17 18:59 Last Admin: 06/06/17 06:59 Dose: 3 ml Budesonide (Pulmicort) 0.[address] [facility] Stop: 07/30/17 18:59 Last Admin: 06/06/17 06:59 Dose: 0.5 mg Clonidine HCl (Catapres) 0.[address] [facility] Stop: 07/28/17 08:59 Last Admin: 06/05/17 09:12 Dose: 0.2 mg Diltiazem HCl (Cardizem) 20 mg IVP Q3H PRN PRN Reason: HR => 120 bpm Stop: 07/30/17 21:14 Last Admin: 06/01/17 01:08 Dose: 20 mg Multivitamins/Minerals 10 ml/Dextrose/ Amino Acids/Electrolytes/ Fat Emulsion Intravenous 1,200 mls @ 50 mls/hr IV .Q24H [facility] Stop: 07/29/17 14:59 Last Admin: 06/05/17 16:45 Dose: 50 mls/hr Linezolid (Zyvox) 600 mg in 300 mls @ 300 mls/hr IV Q12HR [facility] Stop: 07/30/17 20:59 Last Infusion: 06/05/17 23:30 Dose: Infused Meropenem 1 gm/ Sodium (Chloride) 100 mls @ 100 mls/hr IV Q8HR [facility] Stop: 07/30/17 15:59 Last Admin: 06/06/17 02:23 Dose: 100 mls/hr Colistimethate Sodium 150 mg/ (Sodium Chloride) 100 mls @ 100 mls/hr IV Q12HR [facility] Stop: 07/30/17 20:59 Last Infusion: 06/05/17 22:30 Dose: Infused Sodium Chloride (Nacl 0.9%) 1,000 mls @ 125 mls/hr IV .Q8H [facility] Stop: 07/31/17 07:29 Last Admin: 06/06/17 06:42 Dose: 125 mls/hr Insulin Aspart (Novolog Insulin Sliding Scale) 0 units SUBQ ACHS [facility] PRN Reason: Protocol Stop: 07/31/17 07:29 Last Admin: 06/06/17 06:42 Dose: 6 units Lactobacillus Rhamnosus (Culturelle) 1 each PO DAILY [facility] Stop: 08/02/17 08:59 Last Admin: 06/05/17 09:11 Dose: 1 each Lorazepam (Ativan) 1 mg IVP Q6HR PRN; Protocol PRN Reason: Anxiety Stop: 07/31/17 07:30 Miscellaneous (Tpn Per Pharmacy) 1 ea DAILY [facility] Stop: 07/28/17 08:59 Miscellaneous (Probiotic Screen) 1 [facility] PRN PRN PRN Reason: PROTOCOL Stop: 08/01/17 11:22 Morphine Sulfate (Morphine) 2 mg IVP Q4HR PRN PRN Reason: Abdominal Pain Stop: 07/30/17 14:36 Last Admin: 06/06/17 02:40 Dose: 2 mg Morphine Sulfate (Morphine) 2 mg IV Q3HR PRN PRN Reason: Severe Pain Stop: 07/30/17 17:08 Last Admin: 06/05/17 21:22 Dose: 2 mg Ondansetron HCl (Zofran) 4 mg IV Q4H PRN PRN Reason: Nausea / Vomiting Stop: 08/02/17 20:54 Pantoprazole Sodium (Protonix) [address] [facility] Stop: 07/30/17 16:59 Last Admin: 06/05/17 16:16 Dose: Not Given Pantoprazole Sodium (Protonix) [address] [facility] Stop: 08/04/17 16:59 Last Admin: 06/05/17 16:51 Dose: 40 mg General: No acute distress HEENT: Atraumatic Cardiovascular: Regular rate, Normal S1, Normal S2 Abdomen: Bowel sounds, Soft Neurological: Other (weak) - Procedures Procedures: Procedures Procedure Code Date BYPASS STOMACH TO JEJUNUM, OPEN APPROACH [id number] 05/28/17 DRAINAGE OF PERITONEAL CAVITY WITH DRAIN DEV, OPEN APPROACH [id number] 01/25/17 FUSION OF STOMACH AND BOWEL 92542 05/28/17 INSERT INFUSION DEV IN R INT JUGULAR VEIN, PERC [id number] 01/25/17 INSERTION OF INFUSION DEVICE INTO R ATRIUM, PERC APPROACH [id number] 01/25/17 INSPECTION OF GASTROINTESTINAL TRACT, OPEN APPROACH [id number] 01/25/17 REMOVAL OF GALLBLADDER 72743 01/25/17 REOPENING OF ABDOMEN 36150 01/25/17 REPAIR STOMACH, OPEN APPROACH [id number] 01/25/17 RESECTION OF GALLBLADDER, OPEN APPROACH [id number] 01/25/17 RESPIRATORY VENTILATION, 24-96 CONSECUTIVE HOURS [id number] 05/28/17 RESPIRATORY VENTILATION, LESS THAN 24 CONSECUTIVE HOURS [id number] 01/25/17 STOMACH SURGERY PROCEDURE 87037 01/25/17 VENT MGMT INPAT INIT DAY 30129 01/25/17 Assessment/Plan - Problem List Patient Problems: All Active Problems H/O diabetes mellitus (Acute) Z86.39 H/O drug abuse (Acute) Z87.898 H/O: HTN (hypertension) (Acute) Z86.79 POSTCHOLECYSTECTOMY (Acute) UTI (urinary tract infection) (Acute) closeure og gastric perf (Acute) cplacement of new gj (Acute) h/o dementia (Acute) lysisi of adhesions (Acute) r/o sepsis (Acute) s/p surgery (Acute) septic shock (Acute) tachycardia (Acute) - Assessment Assessment: epigastric pain gastritis ostomy hole with discharge s/p cholecystectomy - Plan Plan: continue to ambulate patient empiric ivabx am labs monitor glucose cpm Nutritional Asmnt/Malnutr-PDOC - Dietary Evaluation Malnutrition Findings (Please click <Entered> for more info): Nutritional Asmnt/Malnutrition Start: 05/30/17 15: 01 Text: Status: Complete Freq: Document 05/30/17 15:01 CHLOE (Rec: 05/30/17 15:47 [email or web address]) Nutritional Asmnt/Malnutrition Patient General Information Nutritional Screening High Risk Screening Diagnosis Abd pain, gastrocutaneous fistula, UTI, leukocytosis ( improved) Pertinent Medical Hx/Surgical Hx HTN, DM, cholecystectomy past January 2017 Subjective Information 71 year old female from SNF. Upper GI series today, RN stated possible surgeries pending. Pt was alert and pleasant, appeared anxious, aware of medical condition and TPN/nutrition plan of care. RD explained TPN again, pt has no further questions. Pt reported she has been on TPN since January 2017. Found SNF TPN order in transfer chart, noted under "dosing weight: 134.4lb," pt confirmed wt 130lb measured this month. Questionabled EMR weight, unable to obtain CBW due to bedscale not calibrated. Unable to compelte physical assessment due to heavy blankets. Pt report usual BM pattern once every 2-3 days, given laxative at SNF to promote BM every day. Current Diet Order/ Nutrition Support D25% AA4.25% at 40ml/hr with IL20% 200ml, providing 1359kcal, 40g protein Pertinent Medications Novolog, TPN, Morphine, Multivitamins, Zofran, Protonix, Nacl 0.9% Pertinent Labs 05/29: triglycerides 89 WNL 05/30: BUN 29H (improving), creatinine WNL, glucose 197H, total bilirubin WNL, A1c 6.5H Nutritional Hx/Data Height 1.73 m Height (Calculated Centimeters) 172.7 Current Weight (lbs) 66.678 kg Weight (Calculated Kilograms) 66.7 Weight (Calculated Grams) 35961.1 Usual body Weight (lbs) 130 [place] Body Weight 154 Weight Status Approriate GI Symptoms GI Symptoms Vomitting Cultural/Ethnic/Sikhism Belief [facility]: Dextrose 288gm, AA96gm, IL 18g, 2010ml, providing 1525kcal. Skin Integrity/Comment: Asad Lui RN assessment: abdomen rash/fistula, otherwise skin intact. Estimated Nutritional Goals Calories/Kcals/Kg UBW 130lb/59.1kg Kcals Calculated 1478-1773kcal (25-30kcal/kg) Protein Calculated 59-83g (1-1.4g/kg) Fluid: ml Per MD Nutritional Problem 1. 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 Recommend TPN D19% AA5.5% at 50ml/hr with IL20% 250ml, providing 1539kcal, 66g protein. Dx DM, 50% of total kcal from dextrose. Carb load 2.6mg/kg/min (using SNF weight 134.4lb/61.1kg). Pt has been on TPN since January 2017. 2. Obtain CBW, bedscale inproperly calibrated during visit. Dosing weight 134.4lb noted under [facility] TPN order. Pt stated UBW 130lb. Expected Outcomes/Goals Expected Outcomes/Goals 1. Pt to meet 100% of estimated nutritional needs on TPN with tolerance.
--- NOTE | 2017-06-06 08:38 | General Progress Note ---
Subjective - Review of Systems Service Date: 06/06/17 Events since last encounter: tolerating clear liquids passing flatus labs ok ambulate Objective - Results Result Diagrams: 06/06/17 06:00 06/06/17 06:00 Recent Labs: Laboratory Last Values WBC 7.5 Th/cmm (4.8-10.8) 06/06/17 06:00 RBC 3.13 Mil/cmm (3.80-5.20) L 06/06/17 06:00 Hgb 9.6 gm/dL (11.7-16.1) L 06/06/17 06:00 Hct 28.7 % (35.0-45.0) L 06/06/17 06:00 MCV 91.7 fl (81-100) 06/06/17 06:00 MCH 30.9 pg (27.0-31.0) 06/06/17 06:00 MCHC Differential 33.6 pg (28.0-36.0) 06/06/17 06:00 RDW 14.2 % (11.5-20.0) 06/06/17 06:00 Plt Count 207 Th/cmm (150-400) 06/06/17 06:00 MPV 7.7 fl 06/06/17 06:00 Neutrophils % 65.7 % (40.0-80.0) 06/06/17 06:00 Band Neutrophils % 2 % (0-10) 06/02/17 07:25 Lymphocytes % 17.1 % (20.0-50.0) L 06/06/17 06:00 Monocytes % 11.0 % (2.0-10.0) H 06/06/17 06:00 Eosinophils % 6.1 % (0.0-5.0) H 06/06/17 06:00 Basophils % 0.1 % (0.0-2.0) 06/06/17 06:00 Neutrophils (Manual) 82 % (40-80) H 06/02/17 07:25 Lymphocytes 10 % (20-50) L 06/02/17 07:25 Monocytes 6 % (2-10) 06/02/17 07:25 Platelet Estimate ADEQUATE (NORMAL) 06/02/17 07:25 Platelet Morphology NORMAL (NORMAL) 06/02/17 07:25 Anisocytosis 1+ 06/02/17 07:25 RBC Morph Micro Appear ABNORMAL (NORMAL) 06/02/17 07:25 PT 11.0 SECONDS (9.5-11.5) 05/31/17 05:25 INR 1.06 (0.5-1.4) 05/31/17 05:25 Specimen Source Arterial 06/02/17 09:51 Sample Site Right Radial 06/02/17 09:51 pH 7.39 (7.35-7.45) 06/02/17 09:51 pCO2 43.0 mmHg (35.0-45.0) 06/02/17 09:51 pO2 144.0 mmHg (80.0-100.0) H 06/02/17 09:51 HCO3 25.6 mEq/L (20.0-26.0) 06/02/17 09:51 Base Excess 0.8 mEq/L (-3.0-3.0) 06/02/17 09:51 O2 Saturation 99.0 % (92.0-100.0) 06/02/17 09:51 Luther Test PASS 06/02/17 09:51 Vent Rate 6 06/01/17 08:44 Inspired O2 28 06/02/17 09:51 Tidal Volume 450 06/01/17 08:44 PEEP 5 06/01/17 08:44 Pressure (ins/psv/peep) 15 06/01/17 08:44 Critical Value PW 06/02/17 09:51 Sodium 133 mEq/L (136-145) L 06/06/17 06:00 Potassium 3.4 mEq/L (3.5-5.1) L 06/06/17 06:00 Chloride 98 mEq/L (98-107) 06/06/17 06:00 Carbon Dioxide 32.1 mEq/L (21.0-31.0) H 06/06/17 06:00 Anion Gap 6.3 (7.0-16.0) L 06/06/17 06:00 BUN 19 mg/dL (7-25) 06/06/17 06:00 Creatinine 1.0 mg/dL (0.6-1.2) 06/06/17 06:00 Est GFR ( Amer) > 60.0 ml/min (>90) 06/06/17 06:00 Est GFR (Non-Af Amer) 58.4 ml/min 06/06/17 06:00 BUN/Creatinine Ratio 19.0 06/06/17 06:00 Glucose 203 mg/dL (70-105) H 06/06/17 06:00 POC Glucose 211 MG/DL (70 - 105) H 06/06/17 06:33 Hemoglobin A1c % 6.5 % (4.0-6.0) H 05/30/17 06:16 Whole Bld Lactic Acid 1.25 mmol/L (0.60-1.99) 05/28/17 16:22 Calcium 8.2 mg/dL (8.6-10.3) L 06/06/17 06:00 Phosphorus 3.1 mg/dL (2.5-5.0) 06/06/17 06:00 Magnesium 1.9 mg/dL (1.9-2.7) 06/06/17 06:00 Total Bilirubin 0.5 mg/dL (0.3-1.0) 06/03/17 04:45 AST 15 U/L (13-39) 06/03/17 04:45 ALT 101 U/L (7-52) H 06/03/17 04:45 Alkaline Phosphatase 222 U/L (34-104) H 06/03/17 04:45 Troponin I 0.01 ng/mL (0.01-0.05) 05/28/17 16:22 Total Protein 5.0 gm/dL (6.0-8.3) L 06/03/17 04:45 Albumin 2.3 gm/dL (3.7-5.3) L 06/03/17 04:45 Globulin 2.7 gm/dL 06/03/17 04:45 Albumin/Globulin Ratio 0.9 (1.0-1.8) L 06/03/17 04:45 Prealbumin 11 mg/dL (10-36) 06/04/17 04:39 Triglycerides 79 mg/dL (<150) 05/31/17 05:25 Cholesterol 103 mg/dL (<200) 05/31/17 05:25 LDL Cholesterol Direct 78 mg/dL (75-193) 05/29/17 06:35 HDL Cholesterol 23 mg/dL (23-92) 05/29/17 06:35 Amylase 60 U/L (29-103) 05/28/17 16:22 Lipase 33 U/L (11-82) 05/28/17 16:22 TSH 1.14 uIU/ml (0.34-5.60) 05/29/17 06:35 Urine Source CATH 05/28/17 19:00 Urine Color YELLOW 05/28/17 19:00 Urine Clarity HAZY (CLEAR) 05/28/17 19:00 Urine pH 6.5 05/28/17 19:00 Ur Specific [place] 1.015 (1.005-1.030) 05/28/17 19:00 Urine Protein TRACE mg/dL (NEGATIVE) 05/28/17 19:00 Urine Glucose (UA) NEGATIVE mg/dL (NEGATIVE) 05/28/17 19:00 Urine Ketones NEGATIVE mg/dL (NEGATIVE) 05/28/17 19:00 Urine Blood TRACE (NEGATIVE) 05/28/17 19:00 Urine Nitrate NEGATIVE (NEGATIVE) 05/28/17 19:00 Urine Bilirubin NEGATIVE (NEGATIVE) 05/28/17 19:00 Urine Urobilinogen 0.2 E.U./dL (0.2 - 1.0) 05/28/17 19:00 Ur Leukocyte Esterase SMALL (NEGATIVE) H 05/28/17 19:00 Urine RBC 2-5 /hpf (0-5) 05/28/17 19:00 Urine WBC 50-100 /hpf (0-5) H 05/28/17 19:00 Ur Epithelial Cells FEW /lpf (FEW) 05/28/17 19:00 Urine Bacteria 1+ /hpf (NONE SEEN) H 05/28/17 19:00 Urine Mucus FEW /lpf (FEW) 05/28/17 19:00 Blood Type O POSITIVE 06/02/17 05:22 Antibody Screen NEGATIVE 06/02/17 05:22 Crossmatch See Detail 06/02/17 05:22 - Physical Exam Vitals and I&O: Vital Signs Temp 98.0 F 06/06/17 03:58 Pulse 63 06/06/17 07:15 Resp 14 06/06/17 07:15 BP 116/57 06/06/17 03:58 Pulse Ox 99 06/06/17 07:15 Intake & Output 06/05/17 06/06/17 06/06/17 18:59 06:59 18:59 Intake Total 2297.917 3395.833 Output Total 2135 Balance 2297.917 1260.833 Weight (lbs) 73.936 kg Intake: Intake, IV Amount 2297.917 1595.833 Colistimethate 150 mg In 100 100 Sodium Chloride 0.9% 100 ml @ 100 mls/hr IV Q12HR [facility] Rx#:[id number] Linezolid 600mg/300mL 600 300 300 mg In 300 ml @ 300 mls/ hr IV Q12HR [facility] Rx#: [id number] Meropenem 1 gm In Sodium 100 100 Chloride 0.9% 100 ml @ 100 mls/hr IV Q8HR [facility] Rx #:[id number] Multivitamin Inj 10 ml In 1200 Dextrose 70% 490 ml In Amino Acids 10% 500 ml In Intralipids 20% 200 ml @ 50 mls/hr IV .Q24H [facility] Rx#:[id number] Sodium Chloride 0.9% 1, 734.023 6148.833 000 ml @ 125 mls/hr IV . Q8H [facility] Rx#:[id number] Oral 600 TPN/PPN 1200 Output: Drainage 25 Left Lower Abdomen 25 Urine 2100 Other 10 Other: # Bowel Movements 0 Active Medications: Current Medications Albuterol/Ipratropium (Duoneb Neb) 3 ml HHN Q4HRT [facility] Stop: 07/30/17 18:59 Last Admin: 06/06/17 06:59 Dose: 3 ml Budesonide (Pulmicort) 0.5 mg HHN BIDRT [facility] Stop: 07/30/17 18:59 Last Admin: 06/06/17 06:59 Dose: 0.5 mg Clonidine HCl (Catapres) 0.2 mg PO DAILY [facility] Stop: 07/28/17 08:59 Last Admin: 06/05/17 09:12 Dose: 0.2 mg Diltiazem HCl (Cardizem) 20 mg IVP Q3H PRN PRN Reason: HR => 120 bpm Stop: 07/30/17 21:14 Last Admin: 06/01/17 01:08 Dose: 20 mg Multivitamins/Minerals 10 ml/Dextrose/ Amino Acids/Electrolytes/ Fat Emulsion Intravenous 1,200 mls @ 50 mls/hr IV .Q24H [facility] Stop: 07/29/17 14:59 Last Admin: 06/05/17 16:45 Dose: 50 mls/hr Linezolid (Zyvox) 600 mg in 300 mls @ 300 mls/hr IV Q12HR [facility] Stop: 07/30/17 20:59 Last Infusion: 06/05/17 23:30 Dose: Infused Meropenem 1 gm/ Sodium (Chloride) 100 mls @ 100 mls/hr IV Q8HR [facility] Stop: 07/30/17 15:59 Last Admin: 06/06/17 02:23 Dose: 100 mls/hr Colistimethate Sodium 150 mg/ (Sodium Chloride) 100 mls @ 100 mls/hr IV Q12HR [facility] Stop: 07/30/17 20:59 Last Infusion: 06/05/17 22:30 Dose: Infused Sodium Chloride (Nacl 0.9%) 1,000 mls @ 125 mls/hr IV .Q8H [facility] Stop: 07/31/17 07:29 Last Admin: 06/06/17 06:42 Dose: 125 mls/hr Insulin Aspart (Novolog Insulin Sliding Scale) 0 units SUBQ ACHS [facility] PRN Reason: Protocol Stop: 07/31/17 07:29 Last Admin: 06/06/17 06:42 Dose: 6 units Lactobacillus Rhamnosus (Culturelle) 1 each PO DAILY [facility] Stop: 08/02/17 08:59 Last Admin: 06/05/17 09:11 Dose: 1 each Lorazepam (Ativan) 1 mg IVP Q6HR PRN; Protocol PRN Reason: Anxiety Stop: 07/31/17 07:30 Miscellaneous (Tpn Per Pharmacy) 1 ea MC DAILY [facility] Stop: 07/28/17 08:59 Miscellaneous (Probiotic Screen) 1 ea PRN PRN PRN Reason: PROTOCOL Stop: 08/01/17 11:22 Morphine Sulfate (Morphine) 2 mg IVP Q4HR PRN PRN Reason: Abdominal Pain Stop: 07/30/17 14:36 Last Admin: 06/06/17 02:40 Dose: 2 mg Morphine Sulfate (Morphine) 2 mg IV Q3HR PRN PRN Reason: Severe Pain Stop: 07/30/17 17:08 Last Admin: 06/05/17 21:22 Dose: 2 mg Ondansetron HCl (Zofran) 4 mg IV Q4H PRN PRN Reason: Nausea / Vomiting Stop: 08/02/17 20:54 Pantoprazole Sodium (Protonix) 40 mg IVP BID [facility] Stop: 07/30/17 16:59 Last Admin: 06/05/17 16:16 Dose: Not Given Pantoprazole Sodium (Protonix) 40 mg PO BID [facility] Stop: 08/04/17 16:59 Last Admin: 06/05/17 16:51 Dose: 40 mg General: No acute distress HEENT: Atraumatic Cardiovascular: Regular rate, Normal S1, Normal S2 Abdomen: Bowel sounds, Soft Neurological: Other (weak) - Procedures Procedures: Procedures Procedure Code Date BYPASS STOMACH TO JEJUNUM, OPEN APPROACH [id number] 05/28/17 DRAINAGE OF PERITONEAL CAVITY WITH DRAIN DEV, OPEN APPROACH [id number] 01/25/17 FUSION OF STOMACH AND BOWEL 79089 05/28/17 INSERT INFUSION DEV IN R INT JUGULAR VEIN, PERC [id number] 01/25/17 INSERTION OF INFUSION DEVICE INTO R ATRIUM, PERC APPROACH [id number] 01/25/17 INSPECTION OF GASTROINTESTINAL TRACT, OPEN APPROACH [id number] 01/25/17 REMOVAL OF GALLBLADDER 68060 01/25/17 REOPENING OF ABDOMEN 59425 01/25/17 REPAIR STOMACH, OPEN APPROACH [id number] 01/25/17 RESECTION OF GALLBLADDER, OPEN APPROACH [id number] 01/25/17 RESPIRATORY VENTILATION, 24-96 CONSECUTIVE HOURS [id number] 05/28/17 RESPIRATORY VENTILATION, LESS THAN 24 CONSECUTIVE HOURS [id number] 01/25/17 STOMACH SURGERY PROCEDURE 61251 01/25/17 VENT MGMT INPAT INIT DAY 54819 01/25/17 Assessment/Plan - Problem List Patient Problems: All Active Problems H/O diabetes mellitus (Acute) Z86.39 H/O drug abuse (Acute) Z87.898 H/O: HTN (hypertension) (Acute) Z86.79 POSTCHOLECYSTECTOMY (Acute) UTI (urinary tract infection) (Acute) closeure og gastric perf (Acute) cplacement of new gj (Acute) h/o dementia (Acute) lysisi of adhesions (Acute) r/o sepsis (Acute) s/p surgery (Acute) septic shock (Acute) tachycardia (Acute) Nutritional Asmnt/Malnutr-PDOC - Dietary Evaluation Malnutrition Findings (Please click <Entered> for more info): Nutritional Asmnt/Malnutrition Start: 05/30/17 15: 01 Text: Status: Complete Freq: Document 05/30/17 15:01 CHLOE (Rec: 05/30/17 15:47 [id number]) Nutritional Asmnt/Malnutrition Patient General Information Nutritional Screening High Risk Screening Diagnosis Abd pain, gastrocutaneous fistula, UTI, leukocytosis ( improved) Pertinent Medical Hx/Surgical Hx HTN, DM, cholecystectomy past January 2017 Subjective Information 71 year old female from SNF. Upper GI series today, RN stated possible surgeries pending. Pt was alert and pleasant, appeared anxious, aware of medical condition and TPN/nutrition plan of care. RD explained TPN again, pt has no further questions. Pt reported she has been on TPN since January 2017. Found SNF TPN order in transfer chart, noted under "dosing weight: 134.4lb," pt confirmed wt 130lb measured this month. Questionabled EMR weight, unable to obtain CBW due to bedscale not calibrated. Unable to compelte physical assessment due to heavy blankets. Pt report usual BM pattern once every 2-3 days, given laxative at SNF to promote BM every day. Current Diet Order/ Nutrition Support D25% AA4.25% at 40ml/hr with IL20% 200ml, providing 1359kcal, 40g protein Pertinent Medications Novolog, TPN, Morphine, Multivitamins, Zofran, Protonix, Nacl 0.9% Pertinent Labs 05/29: triglycerides 89 WNL 05/30: BUN 29H (improving), creatinine WNL, glucose 197H, total bilirubin WNL, A1c 6.5H Nutritional Hx/Data Height 1.73 m Height (Calculated Centimeters) 172.7 Current Weight (lbs) 66.678 kg Weight (Calculated Kilograms) 66.7 Weight (Calculated Grams) 67276.1 Usual body Weight (lbs) 130 Barre Body Weight 154 Weight Status Approriate GI Symptoms GI Symptoms Vomitting Cultural/Ethnic/[employer] Belief [facility]: Dextrose 288gm, AA96gm, IL 18g, 2010ml, providing 1525kcal. 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 Estimated Nutritional Goals Calories/Kcals/Kg UBW 130lb/59.1kg Kcals Calculated 1478-1773kcal (25-30kcal/kg) Protein Calculated 59-83g (1-1.4g/kg) Fluid: ml Per MD Nutritional Problem 1. 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 Recommend TPN D19% AA5.5% at 50ml/hr with IL20% 250ml, providing 1539kcal, 66g protein. Dx DM, 50% of total kcal from dextrose. Carb load 2.6mg/kg/min (using SNF weight 134.4lb/61.1kg). Pt has been on TPN since January 2017. 2. Obtain CBW, bedscale inproperly calibrated during visit. Dosing weight 134.4lb noted under SNF TPN order. Pt stated UBW 130lb. Expected Outcomes/Goals Expected Outcomes/Goals 1. Pt to meet 100% of estimated nutritional needs on TPN with tolerance.
[2017-06-06] MEDS: Linezolid 600mg/300mL 600 MG/300 ML BAG IV SCH ×2 (09:40→21:47)
[2017-06-06] MEDS: Pantoprazole 40 mg EC Tab PO SCH ×2 (09:42→17:07)
[2017-06-06] MEDS: Lactobacillus Rhamnosus 10 Billion CFU Capsule PO SCH (09:42)
[2017-06-06] MEDS ORDERED: Potassium Chloride 20 mEq ER Tab PO ONE ×2 (11:48→12:00)
--- NOTE | 2017-06-06 12:06 | Infectious Disease Prog Note ---
Infectious Disease Subjective - Review of Systems Service Date: 06/06/17 Subjective: Doing well. started on liquid diet. Infectious Disease Objective - Results Result Diagrams: 06/06/17 06:00 06/06/17 06:00 Recent Labs: Laboratory Last Values WBC 7.5 Th/cmm (4.8-10.8) 06/06/17 06:00 RBC 3.13 Mil/cmm (3.80-5.20) L 06/06/17 06:00 Hgb 9.6 gm/dL (11.7-16.1) L 06/06/17 06:00 Hct 28.7 % (35.0-45.0) L 06/06/17 06:00 MCV 91.7 fl (81-100) 06/06/17 06:00 MCH 30.9 pg (27.0-31.0) 06/06/17 06:00 MCHC Differential 33.6 pg (28.0-36.0) 06/06/17 06:00 RDW 14.2 % (11.5-20.0) 06/06/17 06:00 Plt Count 207 Th/cmm (150-400) 06/06/17 06:00 MPV 7.7 fl 06/06/17 06:00 Neutrophils % 65.7 % (40.0-80.0) 06/06/17 06:00 Band Neutrophils % 2 % (0-10) 06/02/17 07:25 Lymphocytes % 17.1 % (20.0-50.0) L 06/06/17 06:00 Monocytes % 11.0 % (2.0-10.0) H 06/06/17 06:00 Eosinophils % 6.1 % (0.0-5.0) H 06/06/17 06:00 Basophils % 0.1 % (0.0-2.0) 06/06/17 06:00 Neutrophils (Manual) 82 % (40-80) H 06/02/17 07:25 Lymphocytes 10 % (20-50) L 06/02/17 07:25 Monocytes 6 % (2-10) 06/02/17 07:25 Platelet Estimate ADEQUATE (NORMAL) 06/02/17 07:25 Platelet Morphology NORMAL (NORMAL) 06/02/17 07:25 Anisocytosis 1+ 06/02/17 07:25 RBC Morph Micro Appear ABNORMAL (NORMAL) 06/02/17 07:25 PT 11.0 SECONDS (9.5-11.5) 05/31/17 05:25 INR 1.06 (0.5-1.4) 05/31/17 05:25 Specimen Source Arterial 06/02/17 09:51 Sample Site Right Radial 06/02/17 09:51 pH 7.39 (7.35-7.45) 06/02/17 09:51 pCO2 43.0 mmHg (35.0-45.0) 06/02/17 09:51 pO2 144.0 mmHg (80.0-100.0) H 06/02/17 09:51 HCO3 25.6 mEq/L (20.0-26.0) 06/02/17 09:51 Base Excess 0.8 mEq/L (-3.0-3.0) 06/02/17 09:51 O2 Saturation 99.0 % (92.0-100.0) 06/02/17 09:51 Luther Test PASS 06/02/17 09:51 Vent Rate 6 06/01/17 08:44 Inspired O2 28 06/02/17 09:51 Tidal Volume 450 06/01/17 08:44 PEEP 5 06/01/17 08:44 Pressure (ins/psv/peep) 15 06/01/17 08:44 Critical Value PW 06/02/17 09:51 Sodium 133 mEq/L (136-145) L 06/06/17 06:00 Potassium 3.4 mEq/L (3.5-5.1) L 06/06/17 06:00 Chloride 98 mEq/L (98-107) 06/06/17 06:00 Carbon Dioxide 32.1 mEq/L (21.0-31.0) H 06/06/17 06:00 Anion Gap 6.3 (7.0-16.0) L 06/06/17 06:00 BUN 19 mg/dL (7-25) 06/06/17 06:00 Creatinine 1.0 mg/dL (0.6-1.2) 06/06/17 06:00 Est GFR ( Amer) > 60.0 ml/min (>90) 06/06/17 06:00 Est GFR (Non-Af Amer) 58.4 ml/min 06/06/17 06:00 BUN/Creatinine Ratio 19.0 06/06/17 06:00 Glucose 203 mg/dL (70-105) H 06/06/17 06:00 POC Glucose 211 MG/DL (70 - 105) H 06/06/17 06:33 Hemoglobin A1c % 6.5 % (4.0-6.0) H 05/30/17 06:16 Whole Bld Lactic Acid 1.25 mmol/L (0.60-1.99) 05/28/17 16:22 Calcium 8.2 mg/dL (8.6-10.3) L 06/06/17 06:00 Phosphorus 3.1 mg/dL (2.5-5.0) 06/06/17 06:00 Magnesium 1.9 mg/dL (1.9-2.7) 06/06/17 06:00 Total Bilirubin 0.5 mg/dL (0.3-1.0) 06/03/17 04:45 AST 15 U/L (13-39) 06/03/17 04:45 ALT 101 U/L (7-52) H 06/03/17 04:45 Alkaline Phosphatase 222 U/L (34-104) H 06/03/17 04:45 Troponin I 0.01 ng/mL (0.01-0.05) 05/28/17 16:22 Total Protein 5.0 gm/dL (6.0-8.3) L 06/03/17 04:45 Albumin 2.3 gm/dL (3.7-5.3) L 06/03/17 04:45 Globulin 2.7 gm/dL 06/03/17 04:45 Albumin/Globulin Ratio 0.9 (1.0-1.8) L 06/03/17 04:45 Prealbumin 11 mg/dL (10-36) 06/04/17 04:39 Triglycerides 79 mg/dL (<150) 05/31/17 05:25 Cholesterol 103 mg/dL (<200) 05/31/17 05:25 LDL Cholesterol Direct 78 mg/dL (75-193) 05/29/17 06:35 HDL Cholesterol 23 mg/dL (23-92) 05/29/17 06:35 Amylase 60 U/L (29-103) 05/28/17 16:22 Lipase 33 U/L (11-82) 05/28/17 16:22 TSH 1.14 uIU/ml (0.34-5.60) 05/29/17 06:35 Urine Source CATH 05/28/17 19:00 Urine Color YELLOW 05/28/17 19:00 Urine Clarity HAZY (CLEAR) 05/28/17 19:00 Urine pH 6.5 05/28/17 19:00 Ur Specific [place] 1.015 (1.005-1.030) 05/28/17 19:00 Urine Protein TRACE mg/dL (NEGATIVE) 05/28/17 19:00 Urine Glucose (UA) NEGATIVE mg/dL (NEGATIVE) 05/28/17 19:00 Urine Ketones NEGATIVE mg/dL (NEGATIVE) 05/28/17 19:00 Urine Blood TRACE (NEGATIVE) 05/28/17 19:00 Urine Nitrate NEGATIVE (NEGATIVE) 05/28/17 19:00 Urine Bilirubin NEGATIVE (NEGATIVE) 05/28/17 19:00 Urine Urobilinogen 0.2 E.U./dL (0.2 - 1.0) 05/28/17 19:00 Ur Leukocyte Esterase SMALL (NEGATIVE) H 05/28/17 19:00 Urine RBC 2-5 /hpf (0-5) 05/28/17 19:00 Urine WBC 50-100 /hpf (0-5) H 05/28/17 19:00 Ur Epithelial Cells FEW /lpf (FEW) 05/28/17 19:00 Urine Bacteria 1+ /hpf (NONE SEEN) H 05/28/17 19:00 Urine Mucus FEW /lpf (FEW) 05/28/17 19:00 Blood Type O POSITIVE 06/02/17 05:22 Antibody Screen NEGATIVE 06/02/17 05:22 Crossmatch See Detail 06/02/17 05:22 - Physical Exam Vitals and I&O: Vital Signs Temp 98.0 F 06/06/17 03:58 Pulse 65 06/06/17 11:04 Resp 14 06/06/17 11:04 BP 116/57 06/06/17 03:58 Pulse Ox 96 06/06/17 11:04 Intake & Output 06/05/17 06/06/17 06/06/17 18:59 06:59 18:59 Intake Total 2297.917 3495.833 Output Total 2135 Balance 2297.917 1360.833 Weight (lbs) 73.936 kg Intake: Intake, IV Amount 2297.917 1695.833 Colistimethate 150 mg In 100 100 Sodium Chloride 0.9% 100 ml @ 100 mls/hr IV Q12HR [facility] Rx#:[id number] Linezolid 600mg/300mL 600 300 300 mg In 300 ml @ 300 mls/ hr IV Q12HR [facility] Rx#: [id number] Meropenem 1 gm In Sodium 100 200 Chloride 0.9% 100 ml @ 100 mls/hr IV Q8HR [facility] Rx #:[id number] Multivitamin Inj 10 ml In 1200 Dextrose 70% 490 ml In Amino Acids 10% 500 ml In Intralipids 20% 200 ml @ 50 mls/hr IV .Q24H [facility] Rx#:[id number] Sodium Chloride 0.9% 1, 263.803 2717.833 000 ml @ 125 mls/hr IV . Q8H [facility] Rx#:[id number] Oral 600 TPN/PPN 1200 Output: Drainage 25 Left Lower Abdomen 25 Urine 2100 Other 10 Other: # Bowel Movements 0 Active Medications: Current Medications Albuterol/Ipratropium (Duoneb Neb) 3 ml HHN Q4HRT [facility] Stop: 07/30/17 18:59 Last Admin: 06/06/17 11:02 Dose: 3 ml Budesonide (Pulmicort) 0.5 mg HHN BIDRT [facility] Stop: 07/30/17 18:59 Last Admin: 06/06/17 06:59 Dose: 0.5 mg Clonidine HCl (Catapres) 0.2 mg PO DAILY [facility] Stop: 07/28/17 08:59 Last Admin: 06/05/17 09:12 Dose: 0.2 mg Diltiazem HCl (Cardizem) 20 mg IVP Q3H PRN PRN Reason: HR => 120 bpm Stop: 07/30/17 21:14 Last Admin: 06/01/17 01:08 Dose: 20 mg Multivitamins/Minerals 10 ml/Dextrose/ Amino Acids/Electrolytes/ Fat Emulsion Intravenous 1,200 mls @ 50 mls/hr IV .Q24H [facility] Stop: 07/29/17 14:59 Last Admin: 06/05/17 16:45 Dose: 50 mls/hr Linezolid (Zyvox) 600 mg in 300 mls @ 300 mls/hr IV Q12HR ANISH Stop: 07/30/17 20:59 Last Admin: 06/06/17 09:40 Dose: 300 mls/hr Meropenem 1 gm/ Sodium (Chloride) 100 mls @ 100 mls/hr IV Q8HR ANISH Stop: 07/30/17 15:59 Last Admin: 06/06/17 11:22 Dose: 100 mls/hr Colistimethate Sodium 150 mg/ (Sodium Chloride) 100 mls @ 100 mls/hr IV Q12HR ANISH Stop: 07/30/17 20:59 Last Infusion: 06/05/17 22:30 Dose: Infused Sodium Chloride (Nacl 0.9%) 1,000 mls @ 125 mls/hr IV .Q8H ANISH Stop: 07/31/17 07:29 Last Admin: 06/06/17 06:42 Dose: 125 mls/hr Insulin Aspart (Novolog Insulin Sliding Scale) 0 units SUBQ ACHS ANISH PRN Reason: Protocol Stop: 07/31/17 07:29 Last Admin: 06/06/17 06:42 Dose: 6 units Lactobacillus Rhamnosus (Culturelle) 1 each PO DAILY ANISH Stop: 08/02/17 08:59 Last Admin: 06/06/17 09:42 Dose: 1 each Lorazepam (Ativan) 1 mg IVP Q6HR PRN; Protocol PRN Reason: Anxiety Stop: 07/31/17 07:30 Miscellaneous (Tpn Per Pharmacy) 1 ea MC DAILY ANISH Stop: 07/28/17 08:59 Miscellaneous (Probiotic Screen) 1 ea PRN PRN PRN Reason: PROTOCOL Stop: 08/01/17 11:22 Morphine Sulfate (Morphine) 2 mg IVP Q4HR PRN PRN Reason: Abdominal Pain Stop: 07/30/17 14:36 Last Admin: 06/06/17 09:51 Dose: 2 mg Morphine Sulfate (Morphine) 2 mg IV Q3HR PRN PRN Reason: Severe Pain Stop: 07/30/17 17:08 Last Admin: 06/05/17 21:22 Dose: 2 mg Ondansetron HCl (Zofran) 4 mg IV Q4H PRN PRN Reason: Nausea / Vomiting Stop: 08/02/17 20:54 Pantoprazole Sodium (Protonix) 40 mg IVP BID ANISH Stop: 07/30/17 16:59 Last Admin: 06/06/17 10:09 Dose: Not Given Pantoprazole Sodium (Protonix) 40 mg PO BID ANISH Stop: 08/04/17 16:59 Last Admin: 06/06/17 09:42 Dose: 40 mg Potassium Chloride (Klor-Con) 40 meq PO X1 ANISH Stop: 08/05/17 11:59 General: no acute distress, well developed, well nourished HEENT: atraumatic, normocephalic, PERRLA, EOMI Neck: supple, no thyromegaly Cardiovascular: S1S2, regular, no systolic murmur Lungs: clear to auscultation bilaterally, clear to percussion Abdomen: soft, no tender, no distended Extremities: no cyanosis, no clubbing, no edema Neurological: awake, alert, oriented Skin: intact - Procedures Procedures: Procedures Procedure Code Date BYPASS STOMACH TO JEJUNUM, OPEN APPROACH [id number] 05/28/17 DRAINAGE OF PERITONEAL CAVITY WITH DRAIN DEV, OPEN APPROACH [id number] 01/25/17 FUSION OF STOMACH AND BOWEL [id number] 05/28/17 INSERT INFUSION DEV IN R INT JUGULAR VEIN, PERC [id number] 01/25/17 INSERTION OF INFUSION DEVICE INTO R ATRIUM, PERC APPROACH [id number] 01/25/17 INSPECTION OF GASTROINTESTINAL TRACT, OPEN APPROACH [id number] 01/25/17 REMOVAL OF GALLBLADDER 03801 01/25/17 REOPENING OF ABDOMEN 25647 01/25/17 REPAIR STOMACH, OPEN APPROACH [id number] 01/25/17 RESECTION OF GALLBLADDER, OPEN APPROACH [id number] 01/25/17 RESPIRATORY VENTILATION, 24-96 CONSECUTIVE HOURS [id number] 05/28/17 RESPIRATORY VENTILATION, LESS THAN 24 CONSECUTIVE HOURS [id number] 01/25/17 STOMACH SURGERY PROCEDURE 34745 01/25/17 VENT MGMT INPAT INIT DAY 37160 01/25/17 Infectious Disease Assmt/Plan - Problem List Patient Problems: All Active Problems H/O diabetes mellitus (Acute) Z86.39 H/O drug abuse (Acute) Z87.898 H/O: HTN (hypertension) (Acute) Z86.79 POSTCHOLECYSTECTOMY (Acute) UTI (urinary tract infection) (Acute) closeure og gastric perf (Acute) cplacement of new gj (Acute) h/o dementia (Acute) lysisi of adhesions (Acute) r/o sepsis (Acute) s/p surgery (Acute) septic shock (Acute) tachycardia (Acute) - Assessment Assessment: 1. Abdominal pain, lively peritonitis. 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 3. UTI. 4. Leukocytosis. Improved. - Plan Plan: Continue zyvox, meropenem and colistin total 7 days after surgery. (End date - 06/07/2017). Nutritional Asmnt/Malnutr-PDOC - Dietary Evaluation Malnutrition Findings (Please click <Entered> for more info): Nutritional Asmnt/Malnutrition Start: 05/30/17 15: 01 Text: Status: Complete Freq: Document 05/30/17 15:01 GSUN (Rec: 05/30/17 15:47 GSUN [id number]) Nutritional Asmnt/Malnutrition Patient General Information Nutritional Screening High Risk Screening Diagnosis Abd pain, gastrocutaneous fistula, UTI, leukocytosis ( improved) Pertinent Medical Hx/Surgical Hx HTN, DM, cholecystectomy past January 2017 Subjective Information 71 year old female from SNF. Upper GI series today, RN stated possible surgeries pending. Pt was alert and pleasant, appeared anxious, aware of medical condition and TPN/nutrition plan of care. RD explained TPN again, pt has no further questions. Pt reported she has been on TPN since January 2017. Found SNF TPN order in transfer chart, noted under "dosing weight: 134.4lb," pt confirmed wt 130lb measured this month. Questionabled EMR weight, unable to obtain CBW due to bedscale not calibrated. Unable to compelte physical assessment due to heavy blankets. Pt report usual BM pattern once every 2-3 days, given laxative at SNF to promote BM every day. Current Diet Order/ Nutrition Support D25% AA4.25% at 40ml/hr with IL20% 200ml, providing 1359kcal, 40g protein Pertinent Medications Novolog, TPN, Morphine, Multivitamins, Zofran, Protonix, Nacl 0.9% Pertinent Labs 05/29: triglycerides 89 WNL 05/30: BUN 29H (improving), creatinine WNL, glucose 197H, total bilirubin WNL, A1c 6.5H Nutritional Hx/Data Height 1.73 m Height (Calculated Centimeters) 172.7 Current Weight (lbs) 66.678 kg Weight (Calculated Kilograms) 66.7 Weight (Calculated Grams) 58314.1 Usual body Weight (lbs) 130 [place] Body Weight 154 Weight Status Approriate GI Symptoms GI Symptoms Vomitting Cultural/Ethnic/Muslim Belief [facility]: Dextrose 288gm, AA96gm, IL 18g, 2010ml, providing 1525kcal. Skin Integrity/Comment: Asad Eid. ambulatory nurse: abdomen rash/fistula, otherwise skin intact. Estimated Nutritional Goals Calories/Kcals/Kg UBW 130lb/59.1kg Kcals Calculated 1478-1773kcal (25-30kcal/kg) Protein Calculated 59-83g (1-1.4g/kg) Fluid: ml Per MD Nutritional Problem 1. 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 Recommend TPN D19% AA5.5% at 50ml/hr with IL20% 250ml, providing 1539kcal, 66g protein. Dx DM, 50% of total kcal from dextrose. Carb load 2.6mg/kg/min (using SNF weight 134.4lb/61.1kg). Pt has been on TPN since January 2017. 2. Obtain CBW, bedscale inproperly calibrated during visit. Dosing weight 134.4lb noted under SNF TPN order. Pt stated UBW 130lb. Expected Outcomes/Goals Expected Outcomes/Goals 1. Pt to meet 100% of estimated nutritional needs on TPN with tolerance.
[2017-06-06] MEDS: TPN 10%-70% CUSTOM IV SCH (16:35)
--- NOTE | 2017-06-07 00:45 | Progress Notes ---
DATE: 06/06/2017 PROBLEM LIST: 1. Status post gastric surgery for fistula. 2. Chronic obstructive pulmonary disease. 3. Drug dependence. SYMPTOMS: Nil, feeling okay, still complains of pain, but no specific new symptoms. PHYSICAL EXAMINATION: VITAL SIGNS: Temperature is 97.8, blood pressure is 132/78, saturation 100% on 2 L. NECK: Veins not visualized. Good bilateral carotid upstroke. CHEST: Shows occasional rhonchi with diminished air entry. HEART: Regular. ABDOMEN: Surgical scar. Otherwise, unremarkable. LABORATORY DATA: The patient's white count is 7.5, hemoglobin 9.6, potassium is 3.4. ASSESSMENT: The patient clinically appears to be stable, not much changed. PLANS AND SUGGESTIONS: We will continue current treatment, supplement potassium, etc and go from there. JOB# [id number]
[2017-06-07] MEDS: Morphine Sulfate 2 mg/mL 1mL Syr IVP PRN ×5 (02:26→22:48)
[2017-06-07] MEDS: Albuterol/Ipratropium Neb 3 ML AERS HHN SCH ×6 (02:56→23:06)
[2017-06-07] MEDS ORDERED: Fleet Enema 135 mL RC ONE (02:59)
[2017-06-07 06:41] LABS: % BASOPHILS 0.4 % (0.0-2.0); % EOSINOPHILS 6.7 % (0.0-5.0); % LYMPHOCYTES 21.9 % (20.0-50.0); % MONOCYTES 11.9 % (2.0-10.0); % NEUTROPHILS 59.1 % (40.0-80.0); HEMATOCRIT 29.5 % (35.0-45.0); HEMOGLOBIN 10.1 gm/dL (11.7-16.1); MEAN CELL VOLUME 90.3 fl (81-100); MEAN CORPUSCULAR HEMOGLOBIN 30.9 pg (27.0-31.0); MEAN CORPUSCULAR HGB CONC 34.2 pg (28.0-36.0); MEAN PLATELET VOLUME 7.6 fl; PLATELET COUNT 223 Th/cmm (150-400); RED BLOOD COUNT 3.27 Mil/cmm (3.80-5.20); RED CELL DISTRIBUTION WIDTH 14.4 % (11.5-20.0); WHITE BLOOD COUNT 6.8 Th/cmm (4.8-10.8)
[2017-06-07 07:04] LABS: ALB/GLOB RATIO 0.9 (1.0-1.8); ALKALINE PHOSPHATASE 148 U/L (34-104); ANION GAP 9.3 (7.0-16.0); BILIRUBIN,TOTAL 0.3 mg/dL (0.3-1.0); BUN - UREA NITROGEN 18 mg/dL (7-25); CALCIUM SERUM 8.3 mg/dL (8.6-10.3); CARBON DIOXIDE 27.6 mEq/L (21.0-31.0); CHLORIDE 100 mEq/L (98-107); GLUCOSE 174 mg/dL (70-105); MAGNESIUM 1.7 mg/dL (1.9-2.7); PHOSPHOROUS 4.3 mg/dL (2.5-5.0); POTASSIUM SERUM 3.9 mEq/L (3.5-5.1); SGOT 18 U/L (13-39); SGPT/ALT 34 U/L (7-52); SODIUM SERUM 133 mEq/L (136-145)
[2017-06-07] MEDS: Budesonide 0.5 Mg/2 mL Ud HHN SCH ×2 (07:09→19:03)
--- NOTE | 2017-06-07 09:41 | General Progress Note ---
Subjective - Review of Systems Events since last encounter: patient is feeling better, improving Subjective: awake, alert, tolerating diet Objective - Results Result Diagrams: 06/07/17 06:20 06/07/17 06:20 Recent Labs: Laboratory Last Values WBC 6.8 Th/cmm (4.8-10.8) 06/07/17 06:20 RBC 3.27 Mil/cmm (3.80-5.20) L 06/07/17 06:20 Hgb 10.1 gm/dL (11.7-16.1) L 06/07/17 06:20 Hct 29.5 % (35.0-45.0) L 06/07/17 06:20 MCV 90.3 fl (81-100) 06/07/17 06:20 MCH 30.9 pg (27.0-31.0) 06/07/17 06:20 MCHC Differential 34.2 pg (28.0-36.0) 06/07/17 06:20 RDW 14.4 % (11.5-20.0) 06/07/17 06:20 Plt Count 223 Th/cmm (150-400) 06/07/17 06:20 MPV 7.6 fl 06/07/17 06:20 Neutrophils % 59.1 % (40.0-80.0) 06/07/17 06:20 Band Neutrophils % 2 % (0-10) 06/02/17 07:25 Lymphocytes % 21.9 % (20.0-50.0) 06/07/17 06:20 Monocytes % 11.9 % (2.0-10.0) H 06/07/17 06:20 Eosinophils % 6.7 % (0.0-5.0) H 06/07/17 06:20 Basophils % 0.4 % (0.0-2.0) 06/07/17 06:20 Neutrophils (Manual) 82 % (40-80) H 06/02/17 07:25 Lymphocytes 10 % (20-50) L 06/02/17 07:25 Monocytes 6 % (2-10) 06/02/17 07:25 Platelet Estimate ADEQUATE (NORMAL) 06/02/17 07:25 Platelet Morphology NORMAL (NORMAL) 06/02/17 07:25 Anisocytosis 1+ 06/02/17 07:25 RBC Morph Micro Appear ABNORMAL (NORMAL) 06/02/17 07:25 PT 11.0 SECONDS (9.5-11.5) 05/31/17 05:25 INR 1.06 (0.5-1.4) 05/31/17 05:25 Specimen Source Arterial 06/02/17 09:51 Sample Site Right Radial 06/02/17 09:51 pH 7.39 (7.35-7.45) 06/02/17 09:51 pCO2 43.0 mmHg (35.0-45.0) 06/02/17 09:51 pO2 144.0 mmHg (80.0-100.0) H 06/02/17 09:51 HCO3 25.6 mEq/L (20.0-26.0) 06/02/17 09:51 Base Excess 0.8 mEq/L (-3.0-3.0) 06/02/17 09:51 O2 Saturation 99.0 % (92.0-100.0) 06/02/17 09:51 Luther Test PASS 06/02/17 09:51 Vent Rate 6 06/01/17 08:44 Inspired O2 28 06/02/17 09:51 Tidal Volume 450 06/01/17 08:44 PEEP 5 06/01/17 08:44 Pressure (ins/psv/peep) 15 06/01/17 08:44 Critical Value PW 06/02/17 09:51 Sodium 133 mEq/L (136-145) L 06/07/17 06:20 Potassium 3.9 mEq/L (3.5-5.1) 06/07/17 06:20 Chloride 100 mEq/L (98-107) 06/07/17 06:20 Carbon Dioxide 27.6 mEq/L (21.0-31.0) 06/07/17 06:20 Anion Gap 9.3 (7.0-16.0) 06/07/17 06:20 BUN 18 mg/dL (7-25) 06/07/17 06:20 Creatinine 1.0 mg/dL (0.6-1.2) 06/07/17 06:20 Est GFR ( Amer) > 60.0 ml/min (>90) 06/07/17 06:20 Est GFR (Non-Af Amer) 58.4 ml/min 06/07/17 06:20 BUN/Creatinine Ratio 18.0 06/07/17 06:20 Glucose 174 mg/dL (70-105) H 06/07/17 06:20 POC Glucose 154 MG/DL (70 - 105) H 06/07/17 06:05 Hemoglobin A1c % 6.5 % (4.0-6.0) H 05/30/17 06:16 Whole Bld Lactic Acid 1.25 mmol/L (0.60-1.99) 05/28/17 16:22 Calcium 8.3 mg/dL (8.6-10.3) L 06/07/17 06:20 Phosphorus 4.3 mg/dL (2.5-5.0) 06/07/17 06:20 Magnesium 1.7 mg/dL (1.9-2.7) L 06/07/17 06:20 Total Bilirubin 0.3 mg/dL (0.3-1.0) 06/07/17 06:20 AST 18 U/L (13-39) 06/07/17 06:20 ALT 34 U/L (7-52) 06/07/17 06:20 Alkaline Phosphatase 148 U/L (34-104) H 06/07/17 06:20 Troponin I 0.01 ng/mL (0.01-0.05) 05/28/17 16:22 Total Protein 5.2 gm/dL (6.0-8.3) L 06/07/17 06:20 Albumin 2.4 gm/dL (3.7-5.3) L 06/07/17 06:20 Globulin 2.8 gm/dL 06/07/17 06:20 Albumin/Globulin Ratio 0.9 (1.0-1.8) L 06/07/17 06:20 Prealbumin 11 mg/dL (10-36) 06/04/17 04:39 Triglycerides 79 mg/dL (<150) 05/31/17 05:25 Cholesterol 103 mg/dL (<200) 05/31/17 05:25 LDL Cholesterol Direct 78 mg/dL (75-193) 05/29/17 06:35 HDL Cholesterol 23 mg/dL (23-92) 05/29/17 06:35 Amylase 60 U/L (29-103) 05/28/17 16:22 Lipase 33 U/L (11-82) 05/28/17 16:22 TSH 1.14 uIU/ml (0.34-5.60) 05/29/17 06:35 Urine Source CATH 05/28/17 19:00 Urine Color YELLOW 05/28/17 19:00 Urine Clarity HAZY (CLEAR) 05/28/17 19:00 Urine pH 6.5 05/28/17 19:00 Ur Specific [place] 1.015 (1.005-1.030) 05/28/17 19:00 Urine Protein TRACE mg/dL (NEGATIVE) 05/28/17 19:00 Urine Glucose (UA) NEGATIVE mg/dL (NEGATIVE) 05/28/17 19:00 Urine Ketones NEGATIVE mg/dL (NEGATIVE) 05/28/17 19:00 Urine Blood TRACE (NEGATIVE) 05/28/17 19:00 Urine Nitrate NEGATIVE (NEGATIVE) 05/28/17 19:00 Urine Bilirubin NEGATIVE (NEGATIVE) 05/28/17 19:00 Urine Urobilinogen 0.2 E.U./dL (0.2 - 1.0) 05/28/17 19:00 Ur Leukocyte Esterase SMALL (NEGATIVE) H 05/28/17 19:00 Urine RBC 2-5 /hpf (0-5) 05/28/17 19:00 Urine WBC 50-100 /hpf (0-5) H 05/28/17 19:00 Ur Epithelial Cells FEW /lpf (FEW) 05/28/17 19:00 Urine Bacteria 1+ /hpf (NONE SEEN) H 05/28/17 19:00 Urine Mucus FEW /lpf (FEW) 05/28/17 19:00 Blood Type O POSITIVE 06/02/17 05:22 Antibody Screen NEGATIVE 06/02/17 05:22 Crossmatch See Detail 06/02/17 05:22 - Physical Exam Vitals and I&O: Vital Signs Temp 97.4 F 06/07/17 07:44 Pulse 97 06/07/17 07:44 Resp 18 06/07/17 07:44 BP 130/67 06/07/17 07:44 Pulse Ox 100 06/07/17 07:44 Intake & Output 06/06/17 06/07/17 06/07/17 18:59 06:59 18:59 Intake Total 2991.667 Output Total 4000 Balance 2991.667 -4000 Weight (lbs) 73.936 kg 73.936 kg Intake: Intake, IV Amount 2991.667 Colistimethate 150 mg In 100 Sodium Chloride 0.9% 100 ml @ 100 mls/hr IV Q12HR [facility] Rx#:[id number] Linezolid 600mg/300mL 600 300 mg In 300 ml @ 300 mls/ hr IV Q12HR [facility] Rx#: [id number] Meropenem 1 gm In Sodium 100 Chloride 0.9% 100 ml @ 100 mls/hr IV Q8HR [facility] Rx #:[id number] Multivitamin Inj 10 ml In 1191.667 Dextrose 70% 490 ml In Amino Acids 10% 500 ml In Intralipids 20% 200 ml @ 50 mls/hr IV .Q24H [facility] Rx#:[id number] Sodium Chloride 0.9% 1, 1000 000 ml @ 125 mls/hr IV . Q8H [facility] Rx#:[id number] Output: Urine 4000 Active Medications: Current Medications Albuterol/Ipratropium (Duoneb Neb) 3 ml HHN Q4HRT [facility] Stop: 07/30/17 18:59 Last Admin: 06/07/17 07:09 Dose: 3 ml Budesonide (Pulmicort) 0.5 mg HHN BIDRT [facility] Stop: 07/30/17 18:59 Last Admin: 06/07/17 07:09 Dose: 0.5 mg Clonidine HCl (Catapres) 0.2 mg PO DAILY [facility] Stop: 07/28/17 08:59 Last Admin: 06/06/17 12:26 Dose: Not Given Diltiazem HCl (Cardizem) 20 mg IVP Q3H PRN PRN Reason: HR => 120 bpm Stop: 07/30/17 21:14 Last Admin: 06/01/17 01:08 Dose: 20 mg Multivitamins/Minerals 10 ml/Dextrose/ Amino Acids/Electrolytes/ Fat Emulsion Intravenous 1,200 mls @ 50 mls/hr IV .Q24H [facility] Stop: 07/29/17 14:59 Last Admin: 06/06/17 16:35 Dose: 50 mls/hr Meropenem 1 gm/ Sodium (Chloride) 100 mls @ 100 mls/hr IV Q8HR [facility] Stop: 07/30/17 15:59 Last Admin: 06/06/17 20:40 Dose: 100 mls/hr Sodium Chloride (Nacl 0.9%) 1,000 mls @ 125 mls/hr IV .Q8H [facility] Stop: 07/31/17 07:29 Last Admin: 06/06/17 20:41 Dose: 125 mls/hr Colistimethate Sodium 150 mg/ (Sodium Chloride) 100 mls @ 100 mls/hr IV Q12H [facility] Stop: 08/06/17 10:59 Linezolid (Zyvox) 600 mg in 300 mls @ 300 mls/hr IV Q12H [facility] Stop: 08/06/17 09:59 Insulin Aspart (Novolog Insulin Sliding Scale) 0 units SUBQ ACHS [facility] PRN Reason: Protocol Stop: 07/31/17 07:29 Last Admin: 06/06/17 21:46 Dose: 4 units Lactobacillus Rhamnosus (Culturelle) 1 each PO DAILY [facility] Stop: 08/02/17 08:59 Last Admin: 06/06/17 09:42 Dose: 1 each Lorazepam (Ativan) 1 mg IVP Q6HR PRN; Protocol PRN Reason: Anxiety Stop: 07/31/17 07:30 Miscellaneous (Tpn Per Pharmacy) 1 ea DAILY [facility] Stop: 07/28/17 08:59 Miscellaneous (Probiotic Screen) 1 [facility] PRN PRN PRN Reason: PROTOCOL Stop: 08/01/17 11:22 Morphine Sulfate (Morphine) 2 mg IVP Q4HR PRN PRN Reason: Abdominal Pain Stop: 07/30/17 14:36 Last Admin: 06/07/17 06:44 Dose: 2 mg Morphine Sulfate (Morphine) 2 mg IV Q3HR PRN PRN Reason: Severe Pain Stop: 07/30/17 17:08 Last Admin: 06/05/17 21:22 Dose: 2 mg Ondansetron HCl (Zofran) 4 mg IV Q4H PRN PRN Reason: Nausea / Vomiting Stop: 08/02/17 20:54 Last Admin: 06/07/17 03:52 Dose: 4 mg Pantoprazole Sodium (Protonix) 40 mg PO BID [facility] Stop: 08/04/17 16:59 Last Admin: 06/06/17 17:07 Dose: 40 mg General: No acute distress HEENT: Atraumatic Cardiovascular: Regular rate, Normal S1, Normal S2 Abdomen: Bowel sounds, Soft Neurological: Other (weak) - Procedures Procedures: Procedures Procedure Code Date BYPASS STOMACH TO JEJUNUM, OPEN APPROACH [id number] 05/28/17 DRAINAGE OF PERITONEAL CAVITY WITH DRAIN DEV, OPEN APPROACH [id number] 01/25/17 FUSION OF STOMACH AND BOWEL 81388 05/28/17 INSERT INFUSION DEV IN R INT JUGULAR VEIN, PERC [id number] 01/25/17 INSERTION OF INFUSION DEVICE INTO R ATRIUM, PERC APPROACH [id number] 01/25/17 INSPECTION OF GASTROINTESTINAL TRACT, OPEN APPROACH [id number] 01/25/17 REMOVAL OF GALLBLADDER 02569 01/25/17 REOPENING OF ABDOMEN [id number] 01/25/17 REPAIR STOMACH, OPEN APPROACH [id number] 01/25/17 RESECTION OF GALLBLADDER, OPEN APPROACH [id number] 01/25/17 RESPIRATORY VENTILATION, 24-96 CONSECUTIVE HOURS [id number] 05/28/17 RESPIRATORY VENTILATION, LESS THAN 24 CONSECUTIVE HOURS [id number] 01/25/17 STOMACH SURGERY PROCEDURE 60423 01/25/17 VENT MGMT INPAT INIT DAY 71412 01/25/17 Assessment/Plan - Problem List Patient Problems: All Active Problems H/O diabetes mellitus (Acute) Z86.39 H/O drug abuse (Acute) Z87.898 H/O: HTN (hypertension) (Acute) Z86.79 POSTCHOLECYSTECTOMY (Acute) UTI (urinary tract infection) (Acute) closeure og gastric perf (Acute) cplacement of new gj (Acute) h/o dementia (Acute) lysisi of adhesions (Acute) r/o sepsis (Acute) s/p surgery (Acute) septic shock (Acute) tachycardia (Acute) - Assessment Assessment: epigastric pain gastritis ostomy hole with discharge s/p cholecystectomy - Plan Plan: continue to ambulate patient empiric ivabx am labs monitor glucose cpm Nutritional Asmnt/Malnutr-PDOC - Dietary Evaluation Malnutrition Findings (Please click <Entered> for more info): Nutritional Asmnt/Malnutrition Start: 05/30/17 15: 01 Text: Status: Complete Freq: Document 05/30/17 15:01 GSUN (Rec: 05/30/17 15:47 [email or web address] [id number]) Nutritional Asmnt/Malnutrition Patient General Information Nutritional Screening High Risk Screening Diagnosis Abd pain, gastrocutaneous fistula, UTI, leukocytosis ( improved) Pertinent Medical Hx/Surgical Hx HTN, DM, cholecystectomy past January 2017 Subjective Information 71 year old female from SNF. Upper GI series today, RN stated possible surgeries pending. Pt was alert and pleasant, appeared anxious, aware of medical condition and TPN/nutrition plan of care. RD explained TPN again, pt has no further questions. Pt reported she has been on TPN since January 2017. Found SNF TPN order in transfer chart, noted under "dosing weight: 134.4lb," pt confirmed wt 130lb measured this month. Questionabled EMR weight, unable to obtain CBW due to bedscale not calibrated. Unable to compelte physical assessment due to heavy blankets. Pt report usual BM pattern once every 2-3 days, given laxative at SNF to promote BM every day. Current Diet Order/ Nutrition Support D25% AA4.25% at 40ml/hr with IL20% 200ml, providing 1359kcal, 40g protein Pertinent Medications Novolog, TPN, Morphine, Multivitamins, Zofran, Protonix, Nacl 0.9% Pertinent Labs 05/29: triglycerides 89 WNL 05/30: BUN 29H (improving), creatinine WNL, glucose 197H, total bilirubin WNL, A1c 6.5H Nutritional Hx/Data Height 1.73 m Height (Calculated Centimeters) 172.7 Current Weight (lbs) 66.678 kg Weight (Calculated Kilograms) 66.7 Weight (Calculated Grams) 15571.1 Usual body Weight (lbs) 130 [place] Body Weight 154 Weight Status Approriate GI Symptoms GI Symptoms Vomitting Cultural/Ethnic/Nondenominational Belief [facility]: Dextrose 288gm, AA96gm, IL 18g, 2010ml, providing 1525kcal. Skin Integrity/Comment: Asad Eid. assessment director: abdomen rash/fistula, otherwise skin intact. Estimated Nutritional Goals Calories/Kcals/Kg UBW 130lb/59.1kg Kcals Calculated 1478-1773kcal (25-30kcal/kg) Protein Calculated 59-83g (1-1.4g/kg) Fluid: ml Per MD Nutritional Problem 1. 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 Recommend TPN D19% AA5.5% at 50ml/hr with IL20% 250ml, providing 1539kcal, 66g protein. Dx DM, 50% of total kcal from dextrose. Carb load 2.6mg/kg/min (using SNF weight 134.4lb/61.1kg). Pt has been on TPN since January 2017. 2. Obtain CBW, bedscale inproperly calibrated during visit. Dosing weight 134.4lb noted under SNF TPN order. Pt stated UBW 130lb. Expected Outcomes/Goals Expected Outcomes/Goals 1. Pt to meet 100% of estimated nutritional needs on TPN with tolerance.
[2017-06-07] MEDS: Sodium Chloride 0.9% 1,000 ML IV SCH (10:15)
[2017-06-07] MEDS: Linezolid 600mg/300mL 600 MG/300 ML BAG IV SCH ×2 (10:19→22:01)
--- NOTE | 2017-06-07 10:43 | Diagnostic Imaging Report ---
KUB single view HISTORY: Abdominal pain., Constipation, postop COMPARISON:CT abdomen and pelvis on 05/28/2017 FINDINGS: Generalized gaseous distended loops of bowel are noted. There appears to be a drainage catheter along the right hemiabdomen. Degenerative changes of the spine are noted. IMPRESSION: Generalized gaseous distended loops of bowel possibly a postoperative ileus. No significant focal stool identified. There appears to be a drainage catheter along the right hemiabdomen, correlate with recent surgical history.
[2017-06-07] MEDS: Lactobacillus Rhamnosus 10 Billion CFU Capsule PO SCH (11:05)
[2017-06-07] MEDS: Pantoprazole 40 mg EC Tab PO SCH ×2 (11:05→16:30)
--- NOTE | 2017-06-07 11:23 | General Progress Note ---
Subjective - Review of Systems Service Date: 06/07/17 Events since last encounter: vomited last night no nausea today labs ok, KUB ileus abdomen soft, retart oral feeding Objective - Results Result Diagrams: 06/07/17 06:20 06/07/17 06:20 Recent Labs: Laboratory Last Values WBC 6.8 Th/cmm (4.8-10.8) 06/07/17 06:20 RBC 3.27 Mil/cmm (3.80-5.20) L 06/07/17 06:20 Hgb 10.1 gm/dL (11.7-16.1) L 06/07/17 06:20 Hct 29.5 % (35.0-45.0) L 06/07/17 06:20 MCV 90.3 fl (81-100) 06/07/17 06:20 MCH 30.9 pg (27.0-31.0) 06/07/17 06:20 MCHC Differential 34.2 pg (28.0-36.0) 06/07/17 06:20 RDW 14.4 % (11.5-20.0) 06/07/17 06:20 Plt Count 223 Th/cmm (150-400) 06/07/17 06:20 MPV 7.6 fl 06/07/17 06:20 Neutrophils % 59.1 % (40.0-80.0) 06/07/17 06:20 Band Neutrophils % 2 % (0-10) 06/02/17 07:25 Lymphocytes % 21.9 % (20.0-50.0) 06/07/17 06:20 Monocytes % 11.9 % (2.0-10.0) H 06/07/17 06:20 Eosinophils % 6.7 % (0.0-5.0) H 06/07/17 06:20 Basophils % 0.4 % (0.0-2.0) 06/07/17 06:20 Neutrophils (Manual) 82 % (40-80) H 06/02/17 07:25 Lymphocytes 10 % (20-50) L 06/02/17 07:25 Monocytes 6 % (2-10) 06/02/17 07:25 Platelet Estimate ADEQUATE (NORMAL) 06/02/17 07:25 Platelet Morphology NORMAL (NORMAL) 06/02/17 07:25 Anisocytosis 1+ 06/02/17 07:25 RBC Morph Micro Appear ABNORMAL (NORMAL) 06/02/17 07:25 PT 11.0 SECONDS (9.5-11.5) 05/31/17 05:25 INR 1.06 (0.5-1.4) 05/31/17 05:25 Specimen Source Arterial 06/02/17 09:51 Sample Site Right Radial 06/02/17 09:51 pH 7.39 (7.35-7.45) 06/02/17 09:51 pCO2 43.0 mmHg (35.0-45.0) 06/02/17 09:51 pO2 144.0 mmHg (80.0-100.0) H 06/02/17 09:51 HCO3 25.6 mEq/L (20.0-26.0) 06/02/17 09:51 Base Excess 0.8 mEq/L (-3.0-3.0) 06/02/17 09:51 O2 Saturation 99.0 % (92.0-100.0) 06/02/17 09:51 Luther Test PASS 06/02/17 09:51 Vent Rate 6 06/01/17 08:44 Inspired O2 28 06/02/17 09:51 Tidal Volume 450 06/01/17 08:44 PEEP 5 06/01/17 08:44 Pressure (ins/psv/peep) 15 06/01/17 08:44 Critical Value PW 06/02/17 09:51 Sodium 133 mEq/L (136-145) L 06/07/17 06:20 Potassium 3.9 mEq/L (3.5-5.1) 06/07/17 06:20 Chloride 100 mEq/L (98-107) 06/07/17 06:20 Carbon Dioxide 27.6 mEq/L (21.0-31.0) 06/07/17 06:20 Anion Gap 9.3 (7.0-16.0) 06/07/17 06:20 BUN 18 mg/dL (7-25) 06/07/17 06:20 Creatinine 1.0 mg/dL (0.6-1.2) 06/07/17 06:20 Est GFR ( Amer) > 60.0 ml/min (>90) 06/07/17 06:20 Est GFR (Non-Af Amer) 58.4 ml/min 06/07/17 06:20 BUN/Creatinine Ratio 18.0 06/07/17 06:20 Glucose 174 mg/dL (70-105) H 06/07/17 06:20 POC Glucose 154 MG/DL (70 - 105) H 06/07/17 06:05 Hemoglobin A1c % 6.5 % (4.0-6.0) H 05/30/17 06:16 Whole Bld Lactic Acid 1.25 mmol/L (0.60-1.99) 05/28/17 16:22 Calcium 8.3 mg/dL (8.6-10.3) L 06/07/17 06:20 Phosphorus 4.3 mg/dL (2.5-5.0) 06/07/17 06:20 Magnesium 1.7 mg/dL (1.9-2.7) L 06/07/17 06:20 Total Bilirubin 0.3 mg/dL (0.3-1.0) 06/07/17 06:20 AST 18 U/L (13-39) 06/07/17 06:20 ALT 34 U/L (7-52) 06/07/17 06:20 Alkaline Phosphatase 148 U/L (34-104) H 06/07/17 06:20 Troponin I 0.01 ng/mL (0.01-0.05) 05/28/17 16:22 Total Protein 5.2 gm/dL (6.0-8.3) L 06/07/17 06:20 Albumin 2.4 gm/dL (3.7-5.3) L 06/07/17 06:20 Globulin 2.8 gm/dL 06/07/17 06:20 Albumin/Globulin Ratio 0.9 (1.0-1.8) L 06/07/17 06:20 Prealbumin 11 mg/dL (10-36) 06/04/17 04:39 Triglycerides 79 mg/dL (<150) 05/31/17 05:25 Cholesterol 103 mg/dL (<200) 05/31/17 05:25 LDL Cholesterol Direct 78 mg/dL (75-193) 05/29/17 06:35 HDL Cholesterol 23 mg/dL (23-92) 05/29/17 06:35 Amylase 60 U/L (29-103) 05/28/17 16:22 Lipase 33 U/L (11-82) 05/28/17 16:22 TSH 1.14 uIU/ml (0.34-5.60) 05/29/17 06:35 Urine Source CATH 05/28/17 19:00 Urine Color YELLOW 05/28/17 19:00 Urine Clarity HAZY (CLEAR) 05/28/17 19:00 Urine pH 6.5 05/28/17 19:00 Ur Specific [place] 1.015 (1.005-1.030) 05/28/17 19:00 Urine Protein TRACE mg/dL (NEGATIVE) 05/28/17 19:00 Urine Glucose (UA) NEGATIVE mg/dL (NEGATIVE) 05/28/17 19:00 Urine Ketones NEGATIVE mg/dL (NEGATIVE) 05/28/17 19:00 Urine Blood TRACE (NEGATIVE) 05/28/17 19:00 Urine Nitrate NEGATIVE (NEGATIVE) 05/28/17 19:00 Urine Bilirubin NEGATIVE (NEGATIVE) 05/28/17 19:00 Urine Urobilinogen 0.2 E.U./dL (0.2 - 1.0) 05/28/17 19:00 Ur Leukocyte Esterase SMALL (NEGATIVE) H 05/28/17 19:00 Urine RBC 2-5 /hpf (0-5) 05/28/17 19:00 Urine WBC 50-100 /hpf (0-5) H 05/28/17 19:00 Ur Epithelial Cells FEW /lpf (FEW) 05/28/17 19:00 Urine Bacteria 1+ /hpf (NONE SEEN) H 05/28/17 19:00 Urine Mucus FEW /lpf (FEW) 05/28/17 19:00 Blood Type O POSITIVE 06/02/17 05:22 Antibody Screen NEGATIVE 06/02/17 05:22 Crossmatch See Detail 06/02/17 05:22 - Physical Exam Vitals and I&O: Vital Signs Temp 97.4 F 06/07/17 07:44 Pulse 97 06/07/17 11:06 Resp 18 06/07/17 07:44 BP 130/67 06/07/17 07:44 Pulse Ox 100 06/07/17 07:44 Intake & Output 06/06/17 06/07/17 06/07/17 18:59 06:59 18:59 Intake Total 2991.667 1000 Output Total 4000 Balance 2991.667 -3000 Weight (lbs) 73.936 kg 73.936 kg Intake: Intake, IV Amount 2991.667 1000 Colistimethate 150 mg In 100 Sodium Chloride 0.9% 100 ml @ 100 mls/hr IV Q12HR [facility] Rx#:[id number] Linezolid 600mg/300mL 600 300 mg In 300 ml @ 300 mls/ hr IV Q12HR [facility] Rx#: [id number] Meropenem 1 gm In Sodium 100 Chloride 0.9% 100 ml @ 100 mls/hr IV Q8HR [facility] Rx #:[id number] Multivitamin Inj 10 ml In 1191.667 Dextrose 70% 490 ml In Amino Acids 10% 500 ml In Intralipids 20% 200 ml @ 50 mls/hr IV .Q24H [facility] Rx#:[id number] Sodium Chloride 0.9% 1, 1000 1000 000 ml @ 125 mls/hr IV . Q8H [facility] Rx#:[id number] Output: Urine 4000 Active Medications: Current Medications Albuterol/Ipratropium (Duoneb Neb) 3 ml HHN Q4HRT [facility] Stop: 07/30/17 18:59 Last Admin: 06/07/17 07:09 Dose: 3 ml Budesonide (Pulmicort) 0.5 mg HHN BIDRT [facility] Stop: 07/30/17 18:59 Last Admin: 06/07/17 07:09 Dose: 0.5 mg Clonidine HCl (Catapres) 0.2 mg PO DAILY [facility] Stop: 07/28/17 08:59 Last Admin: 06/07/17 11:06 Dose: Not Given Diltiazem HCl (Cardizem) 20 mg IVP Q3H PRN PRN Reason: HR => 120 bpm Stop: 07/30/17 21:14 Last Admin: 06/01/17 01:08 Dose: 20 mg Gentamicin Sulfate (Gentak 0.3% Oph Soln) 1 drop EACH EYE BID [facility] Stop: 08/06/17 16:59 Multivitamins/Minerals 10 ml/Dextrose/ Amino Acids/Electrolytes/ Fat Emulsion Intravenous 1,200 mls @ 50 mls/hr IV .Q24H [facility] Stop: 07/29/17 14:59 Last Admin: 06/06/17 16:35 Dose: 50 mls/hr Meropenem 1 gm/ Sodium (Chloride) 100 mls @ 100 mls/hr IV Q8HR [facility] Stop: 07/30/17 15:59 Last Admin: 06/06/17 20:40 Dose: 100 mls/hr Sodium Chloride (Nacl 0.9%) 1,000 mls @ 125 mls/hr IV .Q8H [facility] Stop: 07/31/17 07:29 Last Admin: 06/07/17 10:15 Dose: 125 mls/hr Colistimethate Sodium 150 mg/ (Sodium Chloride) 100 mls @ 100 mls/hr IV Q12H [facility] Stop: 08/06/17 10:59 Linezolid (Zyvox) 600 mg in 300 mls @ 300 mls/hr IV Q12H [facility] Stop: 08/06/17 09:59 Last Admin: 06/07/17 10:19 Dose: 300 mls/hr Insulin Aspart (Novolog Insulin Sliding Scale) 0 units SUBQ ACHS [facility] PRN Reason: Protocol Stop: 07/31/17 07:29 Last Admin: 06/06/17 21:46 Dose: 4 units Lactobacillus Rhamnosus (Culturelle) 1 each PO DAILY [facility] Stop: 08/02/17 08:59 Last Admin: 06/07/17 11:05 Dose: Not Given Lorazepam (Ativan) 1 mg IVP Q6HR PRN; Protocol PRN Reason: Anxiety Stop: 07/31/17 07:30 Miscellaneous (Tpn Per Pharmacy) 1 ea MC DAILY [facility] Stop: 07/28/17 08:59 Miscellaneous (Probiotic Screen) 1 [facility] PRN PRN PRN Reason: PROTOCOL Stop: 08/01/17 11:22 Morphine Sulfate (Morphine) 2 mg IVP Q4HR PRN PRN Reason: Abdominal Pain Stop: 07/30/17 14:36 Last Admin: 06/07/17 06:44 Dose: 2 mg Morphine Sulfate (Morphine) 2 mg IV Q3HR PRN PRN Reason: Severe Pain Stop: 07/30/17 17:08 Last Admin: 06/05/17 21:22 Dose: 2 mg Ondansetron HCl (Zofran) 4 mg IV Q4H PRN PRN Reason: Nausea / Vomiting Stop: 08/02/17 20:54 Last Admin: 06/07/17 03:52 Dose: 4 mg Pantoprazole Sodium (Protonix) 40 mg PO BID [facility] Stop: 08/04/17 16:59 Last Admin: 06/07/17 11:05 Dose: Not Given General: No acute distress HEENT: Atraumatic Cardiovascular: Regular rate, Normal S1, Normal S2 Abdomen: Bowel sounds, Soft Neurological: Other (weak) - Procedures Procedures: Procedures Procedure Code Date BYPASS STOMACH TO JEJUNUM, OPEN APPROACH [id number] 05/28/17 DRAINAGE OF PERITONEAL CAVITY WITH DRAIN DEV, OPEN APPROACH [id number] 01/25/17 FUSION OF STOMACH AND BOWEL [id number] 05/28/17 INSERT INFUSION DEV IN R INT JUGULAR VEIN, PERC [id number] 01/25/17 INSERTION OF INFUSION DEVICE INTO R ATRIUM, PERC APPROACH [id number] 01/25/17 INSPECTION OF GASTROINTESTINAL TRACT, OPEN APPROACH [id number] 01/25/17 REMOVAL OF GALLBLADDER 54897 01/25/17 REOPENING OF ABDOMEN 30180 01/25/17 REPAIR STOMACH, OPEN APPROACH [id number] 01/25/17 RESECTION OF GALLBLADDER, OPEN APPROACH [id number] 01/25/17 RESPIRATORY VENTILATION, 24-96 CONSECUTIVE HOURS [id number] 05/28/17 RESPIRATORY VENTILATION, LESS THAN 24 CONSECUTIVE HOURS [id number] 01/25/17 STOMACH SURGERY PROCEDURE 22937 01/25/17 VENT MGMT INPAT INIT DAY 04763 01/25/17 Assessment/Plan - Problem List Patient Problems: All Active Problems H/O diabetes mellitus (Acute) Z86.39 H/O drug abuse (Acute) Z87.898 H/O: HTN (hypertension) (Acute) Z86.79 POSTCHOLECYSTECTOMY (Acute) UTI (urinary tract infection) (Acute) closeure og gastric perf (Acute) cplacement of new gj (Acute) h/o dementia (Acute) lysisi of adhesions (Acute) r/o sepsis (Acute) s/p surgery (Acute) septic shock (Acute) tachycardia (Acute) Nutritional Asmnt/Malnutr-PDOC - Dietary Evaluation Malnutrition Findings (Please click <Entered> for more info): Nutritional Asmnt/Malnutrition Start: 05/30/17 15: 01 Text: Status: Complete Freq: Document 05/30/17 15:01 GSUN (Rec: 05/30/17 15:47 [id number] [id number]) Nutritional Asmnt/Malnutrition Patient General Information Nutritional Screening High Risk Screening Diagnosis Abd pain, gastrocutaneous fistula, UTI, leukocytosis ( improved) Pertinent Medical Hx/Surgical Hx HTN, DM, cholecystectomy past January 2017 Subjective Information 71 year old female from SNF. Upper GI series today, RN stated possible surgeries pending. Pt was alert and pleasant, appeared anxious, aware of medical condition and TPN/nutrition plan of care. RD explained TPN again, pt has no further questions. Pt reported she has been on TPN since January 2017. Found SNF TPN order in transfer chart, noted under "dosing weight: 134.4lb," pt confirmed wt 130lb measured this month. Questionabled EMR weight, unable to obtain CBW due to bedscale not calibrated. Unable to compelte physical assessment due to heavy blankets. Pt report usual BM pattern once every 2-3 days, given laxative at SNF to promote BM every day. Current Diet Order/ Nutrition Support D25% AA4.25% at 40ml/hr with IL20% 200ml, providing 1359kcal, 40g protein Pertinent Medications Novolog, TPN, Morphine, Multivitamins, Zofran, Protonix, Nacl 0.9% Pertinent Labs 05/29: triglycerides 89 WNL 05/30: BUN 29H (improving), creatinine WNL, glucose 197H, total bilirubin WNL, A1c 6.5H Nutritional Hx/Data Height 1.73 m Height (Calculated Centimeters) 172.7 Current Weight (lbs) 66.678 kg Weight (Calculated Kilograms) 66.7 Weight (Calculated Grams) 09462.1 Usual body Weight (lbs) 130 [place] Body Weight 154 Weight Status Approriate GI Symptoms GI Symptoms Vomitting Cultural/Ethnic/[employer] Belief [facility]: Dextrose 288gm, AA96gm, IL 18g, 2010ml, providing 1525kcal. Skin Integrity/Comment: Asad Eid. [employer]ott[employer] supervisor: abdomen rash/fistula, otherwise skin intact. Estimated Nutritional Goals Calories/Kcals/Kg UBW 130lb/59.1kg Kcals Calculated 1478-1773kcal (25-30kcal/kg) Protein Calculated 59-83g (1-1.4g/kg) Fluid: ml Per MD Nutritional Problem 1. 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 Recommend TPN D19% AA5.5% at 50ml/hr with IL20% 250ml, providing 1539kcal, 66g protein. Dx DM, 50% of total kcal from dextrose. Carb load 2.6mg/kg/min (using SNF weight 134.4lb/61.1kg). Pt has been on TPN since January 2017. 2. Obtain CBW, bedscale inproperly calibrated during visit. Dosing weight 134.4lb noted under SNF TPN order. Pt stated UBW 130lb. Expected Outcomes/Goals Expected Outcomes/Goals 1. Pt to meet 100% of estimated nutritional needs on TPN with tolerance.
[2017-06-07] MEDS ORDERED: Mag Sulfate 2gm/50mL Premix 2 GM/50 ML BAG IV ONE ×2 (12:00→12:26)
[2017-06-07] MEDS: INSULIN ASPART SLIDING SCALE 100 UNITS/ML UNIT SUBQ SCH ×3 (12:05→21:00)
[2017-06-07] MEDS: Meropenem 1 GM in Sodium Chloride 0.9% 100 ML IV SCH (12:06)
[2017-06-07] MEDS: TPN 10%-70% CUSTOM IV SCH (16:31)
[2017-06-07] MEDS: Gentamicin 0.3% Ophth Soln 5mL Bottle EACH EYE SCH (17:16)
--- NOTE | 2017-06-07 23:05 | Infectious Disease Prog Note ---
Infectious Disease Subjective - Review of Systems Service Date: 06/07/17 Subjective: Doing well. Vomited once last night. Infectious Disease Objective - Results Result Diagrams: 06/07/17 06:20 06/07/17 06:20 Recent Labs: Laboratory Last Values WBC 6.8 Th/cmm (4.8-10.8) 06/07/17 06:20 RBC 3.27 Mil/cmm (3.80-5.20) L 06/07/17 06:20 Hgb 10.1 gm/dL (11.7-16.1) L 06/07/17 06:20 Hct 29.5 % (35.0-45.0) L 06/07/17 06:20 MCV 90.3 fl (81-100) 06/07/17 06:20 MCH 30.9 pg (27.0-31.0) 06/07/17 06:20 MCHC Differential 34.2 pg (28.0-36.0) 06/07/17 06:20 RDW 14.4 % (11.5-20.0) 06/07/17 06:20 Plt Count 223 Th/cmm (150-400) 06/07/17 06:20 MPV 7.6 fl 06/07/17 06:20 Neutrophils % 59.1 % (40.0-80.0) 06/07/17 06:20 Band Neutrophils % 2 % (0-10) 06/02/17 07:25 Lymphocytes % 21.9 % (20.0-50.0) 06/07/17 06:20 Monocytes % 11.9 % (2.0-10.0) H 06/07/17 06:20 Eosinophils % 6.7 % (0.0-5.0) H 06/07/17 06:20 Basophils % 0.4 % (0.0-2.0) 06/07/17 06:20 Neutrophils (Manual) 82 % (40-80) H 06/02/17 07:25 Lymphocytes 10 % (20-50) L 06/02/17 07:25 Monocytes 6 % (2-10) 06/02/17 07:25 Platelet Estimate ADEQUATE (NORMAL) 06/02/17 07:25 Platelet Morphology NORMAL (NORMAL) 06/02/17 07:25 Anisocytosis 1+ 06/02/17 07:25 RBC Morph Micro Appear ABNORMAL (NORMAL) 06/02/17 07:25 PT 11.0 SECONDS (9.5-11.5) 05/31/17 05:25 INR 1.06 (0.5-1.4) 05/31/17 05:25 Specimen Source Arterial 06/02/17 09:51 Sample Site Right Radial 06/02/17 09:51 pH 7.39 (7.35-7.45) 06/02/17 09:51 pCO2 43.0 mmHg (35.0-45.0) 06/02/17 09:51 pO2 144.0 mmHg (80.0-100.0) H 06/02/17 09:51 HCO3 25.6 mEq/L (20.0-26.0) 06/02/17 09:51 Base Excess 0.8 mEq/L (-3.0-3.0) 06/02/17 09:51 O2 Saturation 99.0 % (92.0-100.0) 06/02/17 09:51 Luther Test PASS 06/02/17 09:51 Vent Rate 6 06/01/17 08:44 Inspired O2 28 06/02/17 09:51 Tidal Volume 450 06/01/17 08:44 PEEP 5 06/01/17 08:44 Pressure (ins/psv/peep) 15 06/01/17 08:44 Critical Value PW 06/02/17 09:51 Sodium 133 mEq/L (136-145) L 06/07/17 06:20 Potassium 3.9 mEq/L (3.5-5.1) 06/07/17 06:20 Chloride 100 mEq/L (98-107) 06/07/17 06:20 Carbon Dioxide 27.6 mEq/L (21.0-31.0) 06/07/17 06:20 Anion Gap 9.3 (7.0-16.0) 06/07/17 06:20 BUN 18 mg/dL (7-25) 06/07/17 06:20 Creatinine 1.0 mg/dL (0.6-1.2) 06/07/17 06:20 Est GFR ( Amer) > 60.0 ml/min (>90) 06/07/17 06:20 Est GFR (Non-Af Amer) 58.4 ml/min 06/07/17 06:20 BUN/Creatinine Ratio 18.0 06/07/17 06:20 Glucose 174 mg/dL (70-105) H 06/07/17 06:20 POC Glucose 127 MG/DL (70 - 105) H 06/07/17 22:03 Hemoglobin A1c % 6.5 % (4.0-6.0) H 05/30/17 06:16 Whole Bld Lactic Acid 1.25 mmol/L (0.60-1.99) 05/28/17 16:22 Calcium 8.3 mg/dL (8.6-10.3) L 06/07/17 06:20 Phosphorus 4.3 mg/dL (2.5-5.0) 06/07/17 06:20 Magnesium 1.7 mg/dL (1.9-2.7) L 06/07/17 06:20 Total Bilirubin 0.3 mg/dL (0.3-1.0) 06/07/17 06:20 AST 18 U/L (13-39) 06/07/17 06:20 ALT 34 U/L (7-52) 06/07/17 06:20 Alkaline Phosphatase 148 U/L (34-104) H 06/07/17 06:20 Troponin I 0.01 ng/mL (0.01-0.05) 05/28/17 16:22 Total Protein 5.2 gm/dL (6.0-8.3) L 06/07/17 06:20 Albumin 2.4 gm/dL (3.7-5.3) L 06/07/17 06:20 Globulin 2.8 gm/dL 06/07/17 06:20 Albumin/Globulin Ratio 0.9 (1.0-1.8) L 06/07/17 06:20 Prealbumin 11 mg/dL (10-36) 06/04/17 04:39 Triglycerides 79 mg/dL (<150) 05/31/17 05:25 Cholesterol 103 mg/dL (<200) 05/31/17 05:25 LDL Cholesterol Direct 78 mg/dL (75-193) 05/29/17 06:35 HDL Cholesterol 23 mg/dL (23-92) 05/29/17 06:35 Amylase 60 U/L (29-103) 05/28/17 16:22 Lipase 33 U/L (11-82) 05/28/17 16:22 TSH 1.14 uIU/ml (0.34-5.60) 05/29/17 06:35 Urine Source CATH 05/28/17 19:00 Urine Color YELLOW 05/28/17 19:00 Urine Clarity HAZY (CLEAR) 05/28/17 19:00 Urine pH 6.5 05/28/17 19:00 Ur Specific Anderson 1.015 (1.005-1.030) 05/28/17 19:00 Urine Protein TRACE mg/dL (NEGATIVE) 05/28/17 19:00 Urine Glucose (UA) NEGATIVE mg/dL (NEGATIVE) 05/28/17 19:00 Urine Ketones NEGATIVE mg/dL (NEGATIVE) 05/28/17 19:00 Urine Blood TRACE (NEGATIVE) 05/28/17 19:00 Urine Nitrate NEGATIVE (NEGATIVE) 05/28/17 19:00 Urine Bilirubin NEGATIVE (NEGATIVE) 05/28/17 19:00 Urine Urobilinogen 0.2 E.U./dL (0.2 - 1.0) 05/28/17 19:00 Ur Leukocyte Esterase SMALL (NEGATIVE) H 05/28/17 19:00 Urine RBC 2-5 /hpf (0-5) 05/28/17 19:00 Urine WBC 50-100 /hpf (0-5) H 05/28/17 19:00 Ur Epithelial Cells FEW /lpf (FEW) 05/28/17 19:00 Urine Bacteria 1+ /hpf (NONE SEEN) H 05/28/17 19:00 Urine Mucus FEW /lpf (FEW) 05/28/17 19:00 Blood Type O POSITIVE 06/02/17 05:22 Antibody Screen NEGATIVE 06/02/17 05:22 Crossmatch See Detail 06/02/17 05:22 - Physical Exam Vitals and I&O: Vital Signs Temp 98.4 F 06/07/17 16:00 Pulse 97 06/07/17 19:13 Resp 16 06/07/17 19:13 BP 104/56 06/07/17 16:00 Pulse Ox 99 06/07/17 19:13 Intake & Output 06/07/17 06/07/17 06/08/17 06:59 18:59 06:59 Intake Total 1100 1696.667 750 Output Total 4000 2060 Balance -2900 1696.667 -1310 Weight (lbs) 73.936 kg 73.936 kg Intake: Intake, IV Amount 1100 1696.667 Colistimethate 150 mg In 100 Sodium Chloride 0.9% 100 ml @ 100 mls/hr IV Q12H [facility] Rx#:[id number] Linezolid 600mg/300mL 600 300 mg In 300 ml @ 300 mls/ hr IV Q12H [facility] Rx#: [id number] Meropenem 1 gm In Sodium 100 100 Chloride 0.9% 100 ml @ 100 mls/hr IV Q8HR [facility] Rx #:[id number] Multivitamin Inj 10 ml In 1196.667 Dextrose 70% 490 ml In Amino Acids 10% 500 ml In Intralipids 20% 200 ml @ 50 mls/hr IV .Q24H [facility] Rx#:[id number] Sodium Chloride 0.9% 1, 1000 000 ml @ 125 mls/hr IV . Q8H [facility] Rx#:[id number] Oral 750 Output: Urine 4000 2050 Other 10 Other: # Bowel Movements 0 Active Medications: Current Medications Albuterol/Ipratropium (Duoneb Neb) 3 ml HHN Q4HRT [facility] Stop: 07/30/17 18:59 Last Admin: 06/07/17 19:03 Dose: 3 ml Budesonide (Pulmicort) 0.5 mg HHN BIDRT [facility] Stop: 07/30/17 18:59 Last Admin: 06/07/17 19:03 Dose: 0.5 mg Clonidine HCl (Catapres) 0.2 mg PO DAILY [facility] Stop: 07/28/17 08:59 Last Admin: 06/07/17 11:06 Dose: Not Given Diltiazem HCl (Cardizem) 20 mg IVP Q3H PRN PRN Reason: HR => 120 bpm Stop: 07/30/17 21:14 Last Admin: 06/01/17 01:08 Dose: 20 mg Gentamicin Sulfate (Gentak 0.3% [facility]) 1 drop EACH EYE BID [facility] Stop: 08/06/17 16:59 Last Admin: 06/07/17 17:16 Dose: 1 drop Multivitamins/Minerals 10 ml/Dextrose/ Amino Acids/Electrolytes/ Fat Emulsion Intravenous 1,200 mls @ 50 mls/hr IV .Q24H [facility] Stop: 07/29/17 14:59 Last Admin: 06/07/17 16:31 Dose: 50 mls/hr Sodium Chloride (Nacl 0.9%) 1,000 mls @ 125 mls/hr IV .Q8H [facility] Stop: 07/31/17 07:29 Last Admin: 06/07/17 10:15 Dose: 125 mls/hr Colistimethate Sodium 150 mg/ (Sodium Chloride) 100 mls @ 100 mls/hr IV Q12H [facility] Stop: 08/06/17 10:59 Last Infusion: 06/07/17 13:05 Dose: Infused Linezolid (Zyvox) 600 mg in 300 mls @ 300 mls/hr IV Q12H [facility] Stop: 08/06/17 09:59 Last Admin: 06/07/17 22:01 Dose: 300 mls/hr Insulin Aspart (Novolog Insulin Sliding Scale) 0 units SUBQ ACHS [facility] PRN Reason: Protocol Stop: 07/31/17 07:29 Last Admin: 06/07/17 17:16 Dose: Not Given Lactobacillus Rhamnosus (Culturelle) 1 each PO DAILY [facility] Stop: 08/02/17 08:59 Last Admin: 06/07/17 11:05 Dose: Not Given Lorazepam (Ativan) 1 mg IVP Q6HR PRN; Protocol PRN Reason: Anxiety Stop: 07/31/17 07:30 Miscellaneous (Tpn Per Pharmacy) 1 ea [facility] DAILY [facility] Stop: 07/28/17 08:59 Miscellaneous (Probiotic Screen) 1 [facility] PRN PRN PRN Reason: PROTOCOL Stop: 08/01/17 11:22 Morphine Sulfate (Morphine) 2 mg IVP Q4HR PRN PRN Reason: Abdominal Pain Stop: 07/30/17 14:36 Last Admin: 06/07/17 22:48 Dose: 2 mg Morphine Sulfate (Morphine) 2 mg IV Q3HR PRN PRN Reason: Severe Pain Stop: 07/30/17 17:08 Last Admin: 06/05/17 21:22 Dose: 2 mg Ondansetron HCl (Zofran) 4 mg IV Q4H PRN PRN Reason: Nausea / Vomiting Stop: 08/02/17 20:54 Last Admin: 06/07/17 03:52 Dose: 4 mg Pantoprazole Sodium (Protonix) 40 mg PO BID [facility] Stop: 08/04/17 16:59 Last Admin: 06/07/17 16:30 Dose: 40 mg General: no acute distress HEENT: atraumatic, normocephalic, PERRLA, EOMI, moist mucous membrane Neck: supple, no thyromegaly Cardiovascular: S1S2, regular Lungs: clear to auscultation bilaterally, clear to percussion Abdomen: soft, no tender, no distended Extremities: no cyanosis, no clubbing Neurological: awake, alert, oriented - Procedures Procedures: Procedures Procedure Code Date BYPASS STOMACH TO JEJUNUM, OPEN APPROACH [id number] 05/28/17 DRAINAGE OF PERITONEAL CAVITY WITH DRAIN DEV, OPEN APPROACH [id number] 01/25/17 FUSION OF STOMACH AND BOWEL 16361 05/28/17 INSERT INFUSION DEV IN R INT JUGULAR VEIN, PERC [id number] 01/25/17 INSERTION OF INFUSION DEVICE INTO R ATRIUM, PERC APPROACH [id number] 01/25/17 INSPECTION OF GASTROINTESTINAL TRACT, OPEN APPROACH [id number] 01/25/17 REMOVAL OF GALLBLADDER 40934 01/25/17 REOPENING OF ABDOMEN [id number] 01/25/17 REPAIR STOMACH, OPEN APPROACH [id number] 01/25/17 RESECTION OF GALLBLADDER, OPEN APPROACH [id number] 01/25/17 RESPIRATORY VENTILATION, 24-96 CONSECUTIVE HOURS [id number] 05/28/17 RESPIRATORY VENTILATION, LESS THAN 24 CONSECUTIVE HOURS [id number] 01/25/17 STOMACH SURGERY PROCEDURE 76015 01/25/17 VENT MGMT INPAT INIT DAY 71068 01/25/17 Infectious Disease Assmt/Plan - Problem List Patient Problems: All Active Problems H/O diabetes mellitus (Acute) Z86.39 H/O drug abuse (Acute) Z87.898 H/O: HTN (hypertension) (Acute) Z86.79 POSTCHOLECYSTECTOMY (Acute) UTI (urinary tract infection) (Acute) closeure og gastric perf (Acute) cplacement of new gj (Acute) h/o dementia (Acute) lysisi of adhesions (Acute) r/o sepsis (Acute) s/p surgery (Acute) septic shock (Acute) tachycardia (Acute) - Assessment Assessment: 1. Abdominal pain, lively peritonitis. 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 3. UTI. 4. Leukocytosis. Improved. - Plan Plan: DC abx. Nutritional Asmnt/Malnutr-PDOC - Dietary Evaluation Malnutrition Findings (Please click <Entered> for more info): Nutritional Asmnt/Malnutrition Start: 05/30/17 15: 01 Text: Status: Complete Freq: Document 05/30/17 15:01 CHLOE (Rec: 05/30/17 15:47 [id number]) Nutritional Asmnt/Malnutrition Patient General Information Nutritional Screening High Risk Screening Diagnosis Abd pain, gastrocutaneous fistula, UTI, leukocytosis ( improved) Pertinent Medical Hx/Surgical Hx HTN, DM, cholecystectomy past January 2017 Subjective Information 71 year old female from SNF. Upper GI series today, RN stated possible surgeries pending. Pt was alert and pleasant, appeared anxious, aware of medical condition and TPN/nutrition plan of care. RD explained TPN again, pt has no further questions. Pt reported she has been on TPN since January 2017. Found SNF TPN order in transfer chart, noted under "dosing weight: 134.4lb," pt confirmed wt 130lb measured this month. Questionabled EMR weight, unable to obtain CBW due to bedscale not calibrated. Unable to compelte physical assessment due to heavy blankets. Pt report usual BM pattern once every 2-3 days, given laxative at SNF to promote BM every day. Current Diet Order/ Nutrition Support D25% AA4.25% at 40ml/hr with IL20% 200ml, providing 1359kcal, 40g protein Pertinent Medications Novolog, TPN, Morphine, Multivitamins, Zofran, Protonix, Nacl 0.9% Pertinent Labs 05/29: triglycerides 89 WNL 05/30: BUN 29H (improving), creatinine WNL, glucose 197H, total bilirubin WNL, A1c 6.5H Nutritional Hx/Data Height 1.73 m Height (Calculated Centimeters) 172.7 Current Weight (lbs) 66.678 kg Weight (Calculated Kilograms) 66.7 Weight (Calculated Grams) 69506.1 Usual body Weight (lbs) 130 [place] Body Weight 154 Weight Status Approriate GI Symptoms GI Symptoms Vomitting Cultural/Ethnic/Confucianist Belief [facility]: Dextrose 288gm, AA96gm, IL 18g, 2010ml, providing 1525kcal. 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 Estimated Nutritional Goals Calories/Kcals/Kg UBW 130lb/59.1kg Kcals Calculated 1478-1773kcal (25-30kcal/kg) Protein Calculated 59-83g (1-1.4g/kg) Fluid: ml Per MD Nutritional Problem 1. 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 Recommend TPN D19% AA5.5% at 50ml/hr with IL20% 250ml, providing 1539kcal, 66g protein. Dx DM, 50% of total kcal from dextrose. Carb load 2.6mg/kg/min (using SNF weight 134.4lb/61.1kg). Pt has been on TPN since January 2017. 2. Obtain CBW, bedscale inproperly calibrated during visit. Dosing weight 134.4lb noted under SNF TPN order. Pt stated UBW 130lb. Expected Outcomes/Goals Expected Outcomes/Goals 1. Pt to meet 100% of estimated nutritional needs on TPN with tolerance.
--- NOTE | 2017-06-07 23:24 | Progress Notes ---
DATE: 06/07/2017 PULMONARY PROGRESS NOTE PROBLEM LIST: 1. Status post acute respiratory failure. 2. Chronic obstructive pulmonary disease. 3. Pain dependency. 4. Status post fistula dependent. SYMPTOMS: Nil. Feeling okay. Able to eat okay. Very minimal shortness of breath, etc. PHYSICAL EXAMINATION: VITAL SIGNS: Temperature is 97.2, blood pressure 128/69, saturation 99% on room air. ENT: Shows no new changes. CHEST: Shows occasional rhonchi with diminished air entry. HEART: Regular. ABDOMEN: Surgical scar. Otherwise, unremarkable, slightly tender. ASSESSMENT: The patient clinically respiratory lynne improving with chronic obstructive pulmonary disease, status post respiratory failure, suspect obstructive sleep apnea syndrome. PLANS AND SUGGESTIONS: We will go ahead and continue current treatment and will follow through other studies in next 24-48 hours and go from there. JOB# [id number]
[2017-06-08] MEDS: Sodium Chloride 0.9% 1,000 ML IV SCH ×2 (00:23→20:57)
[2017-06-08] MEDS: Albuterol/Ipratropium Neb 3 ML AERS HHN SCH ×6 (03:20→23:45)
[2017-06-08] MEDS: Morphine Sulfate 2 mg/mL 1mL Syr IVP PRN ×4 (05:15→22:04)
[2017-06-08] MEDS: INSULIN ASPART SLIDING SCALE 100 UNITS/ML UNIT SUBQ SCH ×5 (06:37→21:30)
[2017-06-08 07:16] LABS: ANION GAP 6.9 (7.0-16.0); BUN - UREA NITROGEN 19 mg/dL (7-25); CALCIUM SERUM 8.4 mg/dL (8.6-10.3); CARBON DIOXIDE 27.9 mEq/L (21.0-31.0); CHLORIDE 103 mEq/L (98-107); GLUCOSE 145 mg/dL (70-105); MAGNESIUM 1.9 mg/dL (1.9-2.7); PHOSPHOROUS 4.8 mg/dL (2.5-5.0); POTASSIUM SERUM 3.8 mEq/L (3.5-5.1); SODIUM SERUM 134 mEq/L (136-145)
[2017-06-08] MEDS: Budesonide 0.5 Mg/2 mL Ud HHN SCH ×2 (07:45→19:41)
--- NOTE | 2017-06-08 08:12 | General Progress Note ---
Subjective - Review of Systems Events since last encounter: patient with no distress doing well Subjective: awake, alert, tolerating diet Objective - Results Result Diagrams: 06/07/17 06:20 06/08/17 06:21 Recent Labs: Laboratory Last Values WBC 6.8 Th/cmm (4.8-10.8) 06/07/17 06:20 RBC 3.27 Mil/cmm (3.80-5.20) L 06/07/17 06:20 Hgb 10.1 gm/dL (11.7-16.1) L 06/07/17 06:20 Hct 29.5 % (35.0-45.0) L 06/07/17 06:20 MCV 90.3 fl (81-100) 06/07/17 06:20 MCH 30.9 pg (27.0-31.0) 06/07/17 06:20 MCHC Differential 34.2 pg (28.0-36.0) 06/07/17 06:20 RDW 14.4 % (11.5-20.0) 06/07/17 06:20 Plt Count 223 Th/cmm (150-400) 06/07/17 06:20 MPV 7.6 fl 06/07/17 06:20 Neutrophils % 59.1 % (40.0-80.0) 06/07/17 06:20 Band Neutrophils % 2 % (0-10) 06/02/17 07:25 Lymphocytes % 21.9 % (20.0-50.0) 06/07/17 06:20 Monocytes % 11.9 % (2.0-10.0) H 06/07/17 06:20 Eosinophils % 6.7 % (0.0-5.0) H 06/07/17 06:20 Basophils % 0.4 % (0.0-2.0) 06/07/17 06:20 Neutrophils (Manual) 82 % (40-80) H 06/02/17 07:25 Lymphocytes 10 % (20-50) L 06/02/17 07:25 Monocytes 6 % (2-10) 06/02/17 07:25 Platelet Estimate ADEQUATE (NORMAL) 06/02/17 07:25 Platelet Morphology NORMAL (NORMAL) 06/02/17 07:25 Anisocytosis 1+ 06/02/17 07:25 RBC Morph Micro Appear ABNORMAL (NORMAL) 06/02/17 07:25 PT 11.0 SECONDS (9.5-11.5) 05/31/17 05:25 INR 1.06 (0.5-1.4) 05/31/17 05:25 Specimen Source Arterial 06/02/17 09:51 Sample Site Right Radial 06/02/17 09:51 pH 7.39 (7.35-7.45) 06/02/17 09:51 pCO2 43.0 mmHg (35.0-45.0) 06/02/17 09:51 pO2 144.0 mmHg (80.0-100.0) H 06/02/17 09:51 HCO3 25.6 mEq/L (20.0-26.0) 06/02/17 09:51 Base Excess 0.8 mEq/L (-3.0-3.0) 06/02/17 09:51 O2 Saturation 99.0 % (92.0-100.0) 06/02/17 09:51 Luther Test PASS 06/02/17 09:51 Vent Rate 6 06/01/17 08:44 Inspired O2 28 06/02/17 09:51 Tidal Volume 450 06/01/17 08:44 PEEP 5 06/01/17 08:44 Pressure (ins/psv/peep) 15 06/01/17 08:44 Critical Value PW 06/02/17 09:51 Sodium 134 mEq/L (136-145) L 06/08/17 06:21 Potassium 3.8 mEq/L (3.5-5.1) 06/08/17 06:21 Chloride 103 mEq/L (98-107) 06/08/17 06:21 Carbon Dioxide 27.9 mEq/L (21.0-31.0) 06/08/17 06:21 Anion Gap 6.9 (7.0-16.0) L 06/08/17 06:21 BUN 19 mg/dL (7-25) 06/08/17 06:21 Creatinine 1.0 mg/dL (0.6-1.2) 06/08/17 06:21 Est GFR ( Amer) > 60.0 ml/min (>90) 06/08/17 06:21 Est GFR (Non-Af Amer) 58.4 ml/min 06/08/17 06:21 BUN/Creatinine Ratio 19.0 06/08/17 06:21 Glucose 145 mg/dL (70-105) H 06/08/17 06:21 POC Glucose 134 MG/DL (70 - 105) H 06/08/17 06:31 Hemoglobin A1c % 6.5 % (4.0-6.0) H 05/30/17 06:16 Whole Bld Lactic Acid 1.25 mmol/L (0.60-1.99) 05/28/17 16:22 Calcium 8.4 mg/dL (8.6-10.3) L 06/08/17 06:21 Phosphorus 4.8 mg/dL (2.5-5.0) 06/08/17 06:21 Magnesium 1.9 mg/dL (1.9-2.7) 06/08/17 06:21 Total Bilirubin 0.3 mg/dL (0.3-1.0) 06/07/17 06:20 AST 18 U/L (13-39) 06/07/17 06:20 ALT 34 U/L (7-52) 06/07/17 06:20 Alkaline Phosphatase 148 U/L (34-104) H 06/07/17 06:20 Troponin I 0.01 ng/mL (0.01-0.05) 05/28/17 16:22 Total Protein 5.2 gm/dL (6.0-8.3) L 06/07/17 06:20 Albumin 2.4 gm/dL (3.7-5.3) L 06/07/17 06:20 Globulin 2.8 gm/dL 06/07/17 06:20 Albumin/Globulin Ratio 0.9 (1.0-1.8) L 06/07/17 06:20 Prealbumin 11 mg/dL (10-36) 06/04/17 04:39 Triglycerides 79 mg/dL (<150) 05/31/17 05:25 Cholesterol 103 mg/dL (<200) 05/31/17 05:25 LDL Cholesterol Direct 78 mg/dL (75-193) 05/29/17 06:35 HDL Cholesterol 23 mg/dL (23-92) 05/29/17 06:35 Amylase 60 U/L (29-103) 05/28/17 16:22 Lipase 33 U/L (11-82) 05/28/17 16:22 TSH 1.14 uIU/ml (0.34-5.60) 05/29/17 06:35 Urine Source CATH 05/28/17 19:00 Urine Color YELLOW 05/28/17 19:00 Urine Clarity HAZY (CLEAR) 05/28/17 19:00 Urine pH 6.5 05/28/17 19:00 Ur Specific [place] 1.015 (1.005-1.030) 05/28/17 19:00 Urine Protein TRACE mg/dL (NEGATIVE) 05/28/17 19:00 Urine Glucose (UA) NEGATIVE mg/dL (NEGATIVE) 05/28/17 19:00 Urine Ketones NEGATIVE mg/dL (NEGATIVE) 05/28/17 19:00 Urine Blood TRACE (NEGATIVE) 05/28/17 19:00 Urine Nitrate NEGATIVE (NEGATIVE) 05/28/17 19:00 Urine Bilirubin NEGATIVE (NEGATIVE) 05/28/17 19:00 Urine Urobilinogen 0.2 E.U./dL (0.2 - 1.0) 05/28/17 19:00 Ur Leukocyte Esterase SMALL (NEGATIVE) H 05/28/17 19:00 Urine RBC 2-5 /hpf (0-5) 05/28/17 19:00 Urine WBC 50-100 /hpf (0-5) H 05/28/17 19:00 Ur Epithelial Cells FEW /lpf (FEW) 05/28/17 19:00 Urine Bacteria 1+ /hpf (NONE SEEN) H 05/28/17 19:00 Urine Mucus FEW /lpf (FEW) 05/28/17 19:00 Blood Type O POSITIVE 06/02/17 05:22 Antibody Screen NEGATIVE 06/02/17 05:22 Crossmatch See Detail 06/02/17 05:22 - Physical Exam Vitals and I&O: Vital Signs Temp 99.0 F 06/08/17 04:00 Pulse 101 06/08/17 04:00 Resp 18 06/08/17 04:00 BP 126/60 06/08/17 04:00 Pulse Ox 94 06/08/17 04:00 Intake & Output 06/07/17 06/08/17 06/08/17 18:59 06:59 18:59 Intake Total 2696.667 1900 Output Total 7394 Balance 2696.667 -2965 Weight (lbs) 73.936 kg Intake: Intake, IV Amount 2696.667 400 Colistimethate 150 mg In 100 Sodium Chloride 0.9% 100 ml @ 100 mls/hr IV Q12H [facility] Rx#:[id number] Linezolid 600mg/300mL 600 300 mg In 300 ml @ 300 mls/ hr IV Q12H [facility] Rx#: [id number] Meropenem 1 gm In Sodium 100 Chloride 0.9% 100 ml @ 100 mls/hr IV Q8HR [facility] Rx #:[id number] Multivitamin Inj 10 ml In 1196.667 Dextrose 70% 490 ml In Amino Acids 10% 500 ml In Intralipids 20% 200 ml @ 50 mls/hr IV .Q24H [facility] Rx#:[id number] Sodium Chloride 0.9% 1, 1000 000 ml @ 125 mls/hr IV . Q8H [facility] Rx#:[id number] Oral 950 TPN/PPN 550 Output: Drainage 5 Left Lower Abdomen 5 Urine 4850 Other 10 Other: # Bowel Movements 0 Active Medications: Current Medications Albuterol/Ipratropium (Duoneb Neb) 3 ml HHN Q4HRT [facility] Stop: 07/30/17 18:59 Last Admin: 06/08/17 07:45 Dose: Not Given Budesonide (Pulmicort) 0.5 mg HHN BIDRT [facility] Stop: 07/30/17 18:59 Last Admin: 06/08/17 07:45 Dose: Not Given Clonidine HCl (Catapres) 0.2 mg PO DAILY [facility] Stop: 07/28/17 08:59 Last Admin: 06/07/17 11:06 Dose: Not Given Diltiazem HCl (Cardizem) 20 mg IVP Q3H PRN PRN Reason: HR => 120 bpm Stop: 07/30/17 21:14 Last Admin: 06/01/17 01:08 Dose: 20 mg Gentamicin Sulfate (Gentak 0.3% [facility]) 1 drop EACH EYE BID [facility] Stop: 08/06/17 16:59 Last Admin: 06/07/17 17:16 Dose: 1 drop Multivitamins/Minerals 10 ml/Dextrose/ Amino Acids/Electrolytes/ Fat Emulsion Intravenous 1,200 mls @ 50 mls/hr IV .Q24H [facility] Stop: 07/29/17 14:59 Last Admin: 06/07/17 16:31 Dose: 50 mls/hr Sodium Chloride (Nacl 0.9%) 1,000 mls @ 125 mls/hr IV .Q8H [facility] Stop: 07/31/17 07:29 Last Admin: 06/08/17 00:23 Dose: 125 mls/hr Insulin Aspart (Novolog Insulin Sliding Scale) 0 units SUBQ ACHS [facility] PRN Reason: Protocol Stop: 07/31/17 07:29 Last Admin: 06/08/17 06:37 Dose: Not Given Lactobacillus Rhamnosus (Culturelle) 1 each PO DAILY [facility] Stop: 08/02/17 08:59 Last Admin: 06/07/17 11:05 Dose: Not Given Lorazepam (Ativan) 1 mg IVP Q6HR PRN; Protocol PRN Reason: Anxiety Stop: 07/31/17 07:30 Miscellaneous (Tpn Per Pharmacy) 1 ea MC DAILY [facility] Stop: 07/28/17 08:59 Miscellaneous (Probiotic Screen) 1 ea PRN PRN PRN Reason: PROTOCOL Stop: 08/01/17 11:22 Morphine Sulfate (Morphine) 2 mg IVP Q4HR PRN PRN Reason: Abdominal Pain Stop: 07/30/17 14:36 Last Admin: 06/08/17 05:15 Dose: 2 mg Morphine Sulfate (Morphine) 2 mg IV Q3HR PRN PRN Reason: Severe Pain Stop: 07/30/17 17:08 Last Admin: 06/05/17 21:22 Dose: 2 mg Ondansetron HCl (Zofran) 4 mg IV Q4H PRN PRN Reason: Nausea / Vomiting Stop: 08/02/17 20:54 Last Admin: 06/07/17 03:52 Dose: 4 mg Pantoprazole Sodium (Protonix) 40 mg PO BID [facility] Stop: 08/04/17 16:59 Last Admin: 06/07/17 16:30 Dose: 40 mg General: No acute distress HEENT: Atraumatic Cardiovascular: Regular rate, Normal S1, Normal S2 Abdomen: Bowel sounds, Soft Neurological: Other (weak) - Procedures Procedures: Procedures Procedure Code Date BYPASS STOMACH TO JEJUNUM, OPEN APPROACH [id number] 05/28/17 DRAINAGE OF PERITONEAL CAVITY WITH DRAIN DEV, OPEN APPROACH [id number] 01/25/17 FUSION OF STOMACH AND BOWEL [id number] 05/28/17 INSERT INFUSION DEV IN R INT JUGULAR VEIN, PERC [id number] 01/25/17 INSERTION OF INFUSION DEVICE INTO R ATRIUM, PERC APPROACH [id number] 01/25/17 INSPECTION OF GASTROINTESTINAL TRACT, OPEN APPROACH [id number] 01/25/17 REMOVAL OF GALLBLADDER 19636 01/25/17 REOPENING OF ABDOMEN 79762 01/25/17 REPAIR STOMACH, OPEN APPROACH [id number] 01/25/17 RESECTION OF GALLBLADDER, OPEN APPROACH [id number] 01/25/17 RESPIRATORY VENTILATION, 24-96 CONSECUTIVE HOURS [id number] 05/28/17 RESPIRATORY VENTILATION, LESS THAN 24 CONSECUTIVE HOURS [id number] 01/25/17 STOMACH SURGERY PROCEDURE 77041 01/25/17 VENT MGMT INPAT INIT DAY 68951 01/25/17 Assessment/Plan - Problem List Patient Problems: All Active Problems H/O diabetes mellitus (Acute) Z86.39 H/O drug abuse (Acute) Z87.898 H/O: HTN (hypertension) (Acute) Z86.79 POSTCHOLECYSTECTOMY (Acute) UTI (urinary tract infection) (Acute) closeure og gastric perf (Acute) cplacement of new gj (Acute) h/o dementia (Acute) lysisi of adhesions (Acute) r/o sepsis (Acute) s/p surgery (Acute) septic shock (Acute) tachycardia (Acute) - Assessment Assessment: epigastric pain gastritis ostomy hole with discharge s/p cholecystectomy - Plan Plan: continue to ambulate patient empiric ivabx am labs monitor glucose cpm Nutritional Asmnt/Malnutr-PDOC - Dietary Evaluation Malnutrition Findings (Please click <Entered> for more info): Nutritional Asmnt/Malnutrition Start: 05/30/17 15: 01 Text: Status: Complete Freq: Document 05/30/17 15:01 GSUN (Rec: 05/30/17 15:47 [email or web address] [email or web address]) Nutritional Asmnt/Malnutrition Patient General Information Nutritional Screening High Risk Screening Diagnosis Abd pain, gastrocutaneous fistula, UTI, leukocytosis ( improved) Pertinent Medical Hx/Surgical Hx HTN, DM, cholecystectomy past January 2017 Subjective Information 71 year old female from SNF. Upper GI series today, RN stated possible surgeries pending. Pt was alert and pleasant, appeared anxious, aware of medical condition and TPN/nutrition plan of care. RD explained TPN again, pt has no further questions. Pt reported she has been on TPN since January 2017. Found SNF TPN order in transfer chart, noted under "dosing weight: 134.4lb," pt confirmed wt 130lb measured this month. Questionabled EMR weight, unable to obtain CBW due to bedscale not calibrated. Unable to compelte physical assessment due to heavy blankets. Pt report usual BM pattern once every 2-3 days, given laxative at SNF to promote BM every day. Current Diet Order/ Nutrition Support D25% AA4.25% at 40ml/hr with IL20% 200ml, providing 1359kcal, 40g protein Pertinent Medications Novolog, TPN, Morphine, Multivitamins, Zofran, Protonix, Nacl 0.9% Pertinent Labs 05/29: triglycerides 89 WNL 05/30: BUN 29H (improving), creatinine WNL, glucose 197H, total bilirubin WNL, A1c 6.5H Nutritional Hx/Data Height 1.73 m Height (Calculated Centimeters) 172.7 Current Weight (lbs) 66.678 kg Weight (Calculated Kilograms) 66.7 Weight (Calculated Grams) 26239.1 Usual body Weight (lbs) 130 [place] Body Weight 154 Weight Status Approriate GI Symptoms GI Symptoms Vomitting Cultural/Ethnic/[employer] Belief [facility]: Dextrose 288gm, AA96gm, IL 18g, 2010ml, providing 1525kcal. Skin Integrity/Comment: Asad Eid. auto dismantler: abdomen rash/fistula, otherwise skin intact. Estimated Nutritional Goals Calories/Kcals/Kg UBW 130lb/59.1kg Kcals Calculated 1478-1773kcal (25-30kcal/kg) Protein Calculated 59-83g (1-1.4g/kg) Fluid: ml Per MD Nutritional Problem 1. 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 Recommend TPN D19% AA5.5% at 50ml/hr with IL20% 250ml, providing 1539kcal, 66g protein. Dx DM, 50% of total kcal from dextrose. Carb load 2.6mg/kg/min (using SNF weight 134.4lb/61.1kg). Pt has been on TPN since January 2017. 2. Obtain CBW, kenneth inproperly calibrated during visit. Dosing weight 134.4lb noted under SNF TPN order. Pt stated UBW 130lb. Expected Outcomes/Goals Expected Outcomes/Goals 1. Pt to meet 100% of estimated nutritional needs on TPN with tolerance.
[2017-06-08] MEDS: Pantoprazole 40 mg EC Tab PO SCH ×2 (10:01→18:06)
[2017-06-08] MEDS: Lactobacillus Rhamnosus 10 Billion CFU Capsule PO SCH (10:02)
[2017-06-08] MEDS: Gentamicin 0.3% Ophth Soln 5mL Bottle EACH EYE SCH ×2 (10:03→17:08)
--- NOTE | 2017-06-08 10:50 | General Progress Note ---
Subjective - Review of Systems Service Date: 06/08/17 Events since last encounter: labs ok SANCHEZ drain 5 ml tolerating liquids, passing flatus no BM ambulating Objective - Results Result Diagrams: 06/07/17 06:20 06/08/17 06:21 Recent Labs: Laboratory Last Values WBC 6.8 Th/cmm (4.8-10.8) 06/07/17 06:20 RBC 3.27 Mil/cmm (3.80-5.20) L 06/07/17 06:20 Hgb 10.1 gm/dL (11.7-16.1) L 06/07/17 06:20 Hct 29.5 % (35.0-45.0) L 06/07/17 06:20 MCV 90.3 fl (81-100) 06/07/17 06:20 MCH 30.9 pg (27.0-31.0) 06/07/17 06:20 MCHC Differential 34.2 pg (28.0-36.0) 06/07/17 06:20 RDW 14.4 % (11.5-20.0) 06/07/17 06:20 Plt Count 223 Th/cmm (150-400) 06/07/17 06:20 MPV 7.6 fl 06/07/17 06:20 Neutrophils % 59.1 % (40.0-80.0) 06/07/17 06:20 Band Neutrophils % 2 % (0-10) 06/02/17 07:25 Lymphocytes % 21.9 % (20.0-50.0) 06/07/17 06:20 Monocytes % 11.9 % (2.0-10.0) H 06/07/17 06:20 Eosinophils % 6.7 % (0.0-5.0) H 06/07/17 06:20 Basophils % 0.4 % (0.0-2.0) 06/07/17 06:20 Neutrophils (Manual) 82 % (40-80) H 06/02/17 07:25 Lymphocytes 10 % (20-50) L 06/02/17 07:25 Monocytes 6 % (2-10) 06/02/17 07:25 Platelet Estimate ADEQUATE (NORMAL) 06/02/17 07:25 Platelet Morphology NORMAL (NORMAL) 06/02/17 07:25 Anisocytosis 1+ 06/02/17 07:25 RBC Morph Micro Appear ABNORMAL (NORMAL) 06/02/17 07:25 PT 11.0 SECONDS (9.5-11.5) 05/31/17 05:25 INR 1.06 (0.5-1.4) 05/31/17 05:25 Specimen Source Arterial 06/02/17 09:51 Sample Site Right Radial 06/02/17 09:51 pH 7.39 (7.35-7.45) 06/02/17 09:51 pCO2 43.0 mmHg (35.0-45.0) 06/02/17 09:51 pO2 144.0 mmHg (80.0-100.0) H 06/02/17 09:51 HCO3 25.6 mEq/L (20.0-26.0) 06/02/17 09:51 Base Excess 0.8 mEq/L (-3.0-3.0) 06/02/17 09:51 O2 Saturation 99.0 % (92.0-100.0) 06/02/17 09:51 Luther Test PASS 06/02/17 09:51 Vent Rate 6 06/01/17 08:44 Inspired O2 28 06/02/17 09:51 Tidal Volume 450 06/01/17 08:44 PEEP 5 06/01/17 08:44 Pressure (ins/psv/peep) 15 06/01/17 08:44 Critical Value PW 06/02/17 09:51 Sodium 134 mEq/L (136-145) L 06/08/17 06:21 Potassium 3.8 mEq/L (3.5-5.1) 06/08/17 06:21 Chloride 103 mEq/L (98-107) 06/08/17 06:21 Carbon Dioxide 27.9 mEq/L (21.0-31.0) 06/08/17 06:21 Anion Gap 6.9 (7.0-16.0) L 06/08/17 06:21 BUN 19 mg/dL (7-25) 06/08/17 06:21 Creatinine 1.0 mg/dL (0.6-1.2) 06/08/17 06:21 Est GFR ( Amer) > 60.0 ml/min (>90) 06/08/17 06:21 Est GFR (Non-Af Amer) 58.4 ml/min 06/08/17 06:21 BUN/Creatinine Ratio 19.0 06/08/17 06:21 Glucose 145 mg/dL (70-105) H 06/08/17 06:21 POC Glucose 134 MG/DL (70 - 105) H 06/08/17 06:31 Hemoglobin A1c % 6.5 % (4.0-6.0) H 05/30/17 06:16 Whole Bld Lactic Acid 1.25 mmol/L (0.60-1.99) 05/28/17 16:22 Calcium 8.4 mg/dL (8.6-10.3) L 06/08/17 06:21 Phosphorus 4.8 mg/dL (2.5-5.0) 06/08/17 06:21 Magnesium 1.9 mg/dL (1.9-2.7) 06/08/17 06:21 Total Bilirubin 0.3 mg/dL (0.3-1.0) 06/07/17 06:20 AST 18 U/L (13-39) 06/07/17 06:20 ALT 34 U/L (7-52) 06/07/17 06:20 Alkaline Phosphatase 148 U/L (34-104) H 06/07/17 06:20 Troponin I 0.01 ng/mL (0.01-0.05) 05/28/17 16:22 Total Protein 5.2 gm/dL (6.0-8.3) L 06/07/17 06:20 Albumin 2.4 gm/dL (3.7-5.3) L 06/07/17 06:20 Globulin 2.8 gm/dL 06/07/17 06:20 Albumin/Globulin Ratio 0.9 (1.0-1.8) L 06/07/17 06:20 Prealbumin 11 mg/dL (10-36) 06/04/17 04:39 Triglycerides 79 mg/dL (<150) 05/31/17 05:25 Cholesterol 103 mg/dL (<200) 05/31/17 05:25 LDL Cholesterol Direct 78 mg/dL (75-193) 05/29/17 06:35 HDL Cholesterol 23 mg/dL (23-92) 05/29/17 06:35 Amylase 60 U/L (29-103) 05/28/17 16:22 Lipase 33 U/L (11-82) 05/28/17 16:22 TSH 1.14 uIU/ml (0.34-5.60) 05/29/17 06:35 Urine Source CATH 05/28/17 19:00 Urine Color YELLOW 05/28/17 19:00 Urine Clarity HAZY (CLEAR) 05/28/17 19:00 Urine pH 6.5 05/28/17 19:00 Ur Specific [place] 1.015 (1.005-1.030) 05/28/17 19:00 Urine Protein TRACE mg/dL (NEGATIVE) 05/28/17 19:00 Urine Glucose (UA) NEGATIVE mg/dL (NEGATIVE) 05/28/17 19:00 Urine Ketones NEGATIVE mg/dL (NEGATIVE) 05/28/17 19:00 Urine Blood TRACE (NEGATIVE) 05/28/17 19:00 Urine Nitrate NEGATIVE (NEGATIVE) 05/28/17 19:00 Urine Bilirubin NEGATIVE (NEGATIVE) 05/28/17 19:00 Urine Urobilinogen 0.2 E.U./dL (0.2 - 1.0) 05/28/17 19:00 Ur Leukocyte Esterase SMALL (NEGATIVE) H 05/28/17 19:00 Urine RBC 2-5 /hpf (0-5) 05/28/17 19:00 Urine WBC 50-100 /hpf (0-5) H 05/28/17 19:00 Ur Epithelial Cells FEW /lpf (FEW) 05/28/17 19:00 Urine Bacteria 1+ /hpf (NONE SEEN) H 05/28/17 19:00 Urine Mucus FEW /lpf (FEW) 05/28/17 19:00 Blood Type O POSITIVE 06/02/17 05:22 Antibody Screen NEGATIVE 06/02/17 05:22 Crossmatch See Detail 06/02/17 05:22 - Physical Exam Vitals and I&O: Vital Signs Temp 99.0 F 06/08/17 04:00 Pulse 87 06/08/17 10:02 Resp 18 06/08/17 07:47 BP 126/60 06/08/17 04:00 Pulse Ox 96 06/08/17 07:47 Intake & Output 06/07/17 06/08/17 06/08/17 18:59 06:59 18:59 Intake Total 2696.667 1900 Output Total 3485 Balance 2696.667 -2965 Weight (lbs) 73.936 kg Intake: Intake, IV Amount 2696.667 400 Colistimethate 150 mg In 100 Sodium Chloride 0.9% 100 ml @ 100 mls/hr IV Q12H [facility] Rx#:[id number] Linezolid 600mg/300mL 600 300 mg In 300 ml @ 300 mls/ hr IV Q12H [facility] Rx#: [id number] Meropenem 1 gm In Sodium 100 Chloride 0.9% 100 ml @ 100 mls/hr IV Q8HR [facility] Rx #:[id number] Multivitamin Inj 10 ml In 1196.667 Dextrose 70% 490 ml In Amino Acids 10% 500 ml In Intralipids 20% 200 ml @ 50 mls/hr IV .Q24H [facility] Rx#:[id number] Sodium Chloride 0.9% 1, 1000 000 ml @ 125 mls/hr IV . Q8H [facility] Rx#:[id number] Oral 950 TPN/PPN 550 Output: Drainage 5 Left Lower Abdomen 5 Urine 4850 Other 10 Other: # Bowel Movements 0 Active Medications: Current Medications Albuterol/Ipratropium (Duoneb Neb) 3 ml HHN Q4HRT [facility] Stop: 07/30/17 18:59 Last Admin: 06/08/17 07:45 Dose: Not Given Budesonide (Pulmicort) 0.5 mg HHN BIDRT [facility] Stop: 07/30/17 18:59 Last Admin: 06/08/17 07:45 Dose: Not Given Clonidine HCl (Catapres) 0.2 mg PO DAILY [facility] Stop: 07/28/17 08:59 Last Admin: 06/08/17 10:02 Dose: 0.2 mg Diltiazem HCl (Cardizem) 20 mg IVP Q3H PRN PRN Reason: HR => 120 bpm Stop: 07/30/17 21:14 Last Admin: 06/01/17 01:08 Dose: 20 mg Gentamicin Sulfate (Gentak 0.3% [facility]) 1 drop EACH EYE BID [facility] Stop: 08/06/17 16:59 Last Admin: 06/08/17 10:03 Dose: 1 drop Multivitamins/Minerals 10 ml/Dextrose/ Amino Acids/Electrolytes/ Fat Emulsion Intravenous 1,200 mls @ 50 mls/hr IV .Q24H [facility] Stop: 07/29/17 14:59 Last Admin: 06/07/17 16:31 Dose: 50 mls/hr Sodium Chloride (Nacl 0.9%) 1,000 mls @ 125 mls/hr IV .Q8H [facility] Stop: 07/31/17 07:29 Last Admin: 06/08/17 00:23 Dose: 125 mls/hr Insulin Aspart (Novolog Insulin Sliding Scale) 0 units SUBQ ACHS [facility] PRN Reason: Protocol Stop: 07/31/17 07:29 Last Admin: 06/08/17 06:37 Dose: Not Given Lactobacillus Rhamnosus (Culturelle) 1 each PO DAILY [facility] Stop: 08/02/17 08:59 Last Admin: 06/08/17 10:02 Dose: 1 each Lorazepam (Ativan) 1 mg IVP Q6HR PRN; Protocol PRN Reason: Anxiety Stop: 07/31/17 07:30 Miscellaneous (Tpn Per Pharmacy) 1 ea DAILY [facility] Stop: 07/28/17 08:59 Miscellaneous (Probiotic Screen) 1 ea PRN PRN PRN Reason: PROTOCOL Stop: 08/01/17 11:22 Morphine Sulfate (Morphine) 2 mg IVP Q4HR PRN PRN Reason: Abdominal Pain Stop: 07/30/17 14:36 Last Admin: 06/08/17 10:03 Dose: 2 mg Morphine Sulfate (Morphine) 2 mg IV Q3HR PRN PRN Reason: Severe Pain Stop: 07/30/17 17:08 Last Admin: 06/05/17 21:22 Dose: 2 mg Ondansetron HCl (Zofran) 4 mg IV Q4H PRN PRN Reason: Nausea / Vomiting Stop: 08/02/17 20:54 Last Admin: 06/07/17 03:52 Dose: 4 mg Pantoprazole Sodium (Protonix) 40 mg PO BID [facility] Stop: 08/04/17 16:59 Last Admin: 06/08/17 10:01 Dose: 40 mg General: No acute distress HEENT: Atraumatic Cardiovascular: Regular rate, Normal S1, Normal S2 Abdomen: Bowel sounds, Soft Neurological: Other (weak) - Procedures Procedures: Procedures Procedure Code Date BYPASS STOMACH TO JEJUNUM, OPEN APPROACH [id number] 05/28/17 DRAINAGE OF PERITONEAL CAVITY WITH DRAIN DEV, OPEN APPROACH [id number] 01/25/17 FUSION OF STOMACH AND BOWEL [id number] 05/28/17 INSERT INFUSION DEV IN R INT JUGULAR VEIN, PERC [id number] 01/25/17 INSERTION OF INFUSION DEVICE INTO R ATRIUM, PERC APPROACH [id number] 01/25/17 INSPECTION OF GASTROINTESTINAL TRACT, OPEN APPROACH [id number] 01/25/17 REMOVAL OF GALLBLADDER 46763 01/25/17 REOPENING OF ABDOMEN 59345 01/25/17 REPAIR STOMACH, OPEN APPROACH [id number] 01/25/17 RESECTION OF GALLBLADDER, OPEN APPROACH [id number] 01/25/17 RESPIRATORY VENTILATION, 24-96 CONSECUTIVE HOURS [id number] 05/28/17 RESPIRATORY VENTILATION, LESS THAN 24 CONSECUTIVE HOURS [id number] 01/25/17 STOMACH SURGERY PROCEDURE 51089 01/25/17 VENT MGMT INPAT INIT DAY 25239 01/25/17 Assessment/Plan - Problem List Patient Problems: All Active Problems H/O diabetes mellitus (Acute) Z86.39 H/O drug abuse (Acute) Z87.898 H/O: HTN (hypertension) (Acute) Z86.79 POSTCHOLECYSTECTOMY (Acute) UTI (urinary tract infection) (Acute) closeure og gastric perf (Acute) cplacement of new gj (Acute) h/o dementia (Acute) lysisi of adhesions (Acute) r/o sepsis (Acute) s/p surgery (Acute) septic shock (Acute) tachycardia (Acute) Nutritional Asmnt/Malnutr-PDOC - Dietary Evaluation Malnutrition Findings (Please click <Entered> for more info): Nutritional Asmnt/Malnutrition Start: 05/30/17 15: 01 Text: Status: Complete Freq: Document 05/30/17 15:01 GSUN (Rec: 05/30/17 15:47 GSUN [id number]) Nutritional Asmnt/Malnutrition Patient General Information Nutritional Screening High Risk Screening Diagnosis Abd pain, gastrocutaneous fistula, UTI, leukocytosis ( improved) Pertinent Medical Hx/Surgical Hx HTN, DM, cholecystectomy past January 2017 Subjective Information 71 year old female from SNF. Upper GI series today, RN stated possible surgeries pending. Pt was alert and pleasant, appeared anxious, aware of medical condition and TPN/nutrition plan of care. RD explained TPN again, pt has no further questions. Pt reported she has been on TPN since January 2017. Found SNF TPN order in transfer chart, noted under "dosing weight: 134.4lb," pt confirmed wt 130lb measured this month. Questionabled EMR weight, unable to obtain CBW due to bedscale not calibrated. Unable to compelte physical assessment due to heavy blankets. Pt report usual BM pattern once every 2-3 days, given laxative at SNF to promote BM every day. Current Diet Order/ Nutrition Support D25% AA4.25% at 40ml/hr with IL20% 200ml, providing 1359kcal, 40g protein Pertinent Medications Novolog, TPN, Morphine, Multivitamins, Zofran, Protonix, Nacl 0.9% Pertinent Labs 05/29: triglycerides 89 WNL 05/30: BUN 29H (improving), creatinine WNL, glucose 197H, total bilirubin WNL, A1c 6.5H Nutritional Hx/Data Height 1.73 m Height (Calculated Centimeters) 172.7 Current Weight (lbs) 66.678 kg Weight (Calculated Kilograms) 66.7 Weight (Calculated Grams) 75502.1 Usual body Weight (lbs) 130 [place] Body Weight 154 Weight Status Approriate GI Symptoms GI Symptoms Vomitting Cultural/Ethnic/[employer] Belief [facility]: Dextrose 288gm, AA96gm, IL 18g, 2010ml, providing 1525kcal. 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 Estimated Nutritional Goals Calories/Kcals/Kg UBW 130lb/59.1kg Kcals Calculated 1478-1773kcal (25-30kcal/kg) Protein Calculated 59-83g (1-1.4g/kg) Fluid: ml Per MD Nutritional Problem 1. 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 Recommend TPN D19% AA5.5% at 50ml/hr with IL20% 250ml, providing 1539kcal, 66g protein. Dx DM, 50% of total kcal from dextrose. Carb load 2.6mg/kg/min (using SNF weight 134.4lb/61.1kg). Pt has been on TPN since January 2017. 2. Obtain CBW, bedscale inproperly calibrated during visit. Dosing weight 134.4lb noted under SNF TPN order. Pt stated UBW 130lb. Expected Outcomes/Goals Expected Outcomes/Goals 1. Pt to meet 100% of estimated nutritional needs on TPN with tolerance.
--- NOTE | 2017-06-08 14:47 | Infectious Disease Prog Note ---
Infectious Disease Subjective - Review of Systems Service Date: 06/08/17 Subjective: Doing well. Infectious Disease Objective - Results Result Diagrams: 06/07/17 06:20 06/08/17 06:21 Recent Labs: Laboratory Last Values WBC 6.8 Th/cmm (4.8-10.8) 06/07/17 06:20 RBC 3.27 Mil/cmm (3.80-5.20) L 06/07/17 06:20 Hgb 10.1 gm/dL (11.7-16.1) L 06/07/17 06:20 Hct 29.5 % (35.0-45.0) L 06/07/17 06:20 MCV 90.3 fl (81-100) 06/07/17 06:20 MCH 30.9 pg (27.0-31.0) 06/07/17 06:20 MCHC Differential 34.2 pg (28.0-36.0) 06/07/17 06:20 RDW 14.4 % (11.5-20.0) 06/07/17 06:20 Plt Count 223 Th/cmm (150-400) 06/07/17 06:20 MPV 7.6 fl 06/07/17 06:20 Neutrophils % 59.1 % (40.0-80.0) 06/07/17 06:20 Band Neutrophils % 2 % (0-10) 06/02/17 07:25 Lymphocytes % 21.9 % (20.0-50.0) 06/07/17 06:20 Monocytes % 11.9 % (2.0-10.0) H 06/07/17 06:20 Eosinophils % 6.7 % (0.0-5.0) H 06/07/17 06:20 Basophils % 0.4 % (0.0-2.0) 06/07/17 06:20 Neutrophils (Manual) 82 % (40-80) H 06/02/17 07:25 Lymphocytes 10 % (20-50) L 06/02/17 07:25 Monocytes 6 % (2-10) 06/02/17 07:25 Platelet Estimate ADEQUATE (NORMAL) 06/02/17 07:25 Platelet Morphology NORMAL (NORMAL) 06/02/17 07:25 Anisocytosis 1+ 06/02/17 07:25 RBC Morph Micro Appear ABNORMAL (NORMAL) 06/02/17 07:25 PT 11.0 SECONDS (9.5-11.5) 05/31/17 05:25 INR 1.06 (0.5-1.4) 05/31/17 05:25 Specimen Source Arterial 06/02/17 09:51 Sample Site Right Radial 06/02/17 09:51 pH 7.39 (7.35-7.45) 06/02/17 09:51 pCO2 43.0 mmHg (35.0-45.0) 06/02/17 09:51 pO2 144.0 mmHg (80.0-100.0) H 06/02/17 09:51 HCO3 25.6 mEq/L (20.0-26.0) 06/02/17 09:51 Base Excess 0.8 mEq/L (-3.0-3.0) 06/02/17 09:51 O2 Saturation 99.0 % (92.0-100.0) 06/02/17 09:51 Luther Test PASS 06/02/17 09:51 Vent Rate 6 06/01/17 08:44 Inspired O2 28 06/02/17 09:51 Tidal Volume 450 06/01/17 08:44 PEEP 5 06/01/17 08:44 Pressure (ins/psv/peep) 15 06/01/17 08:44 Critical Value PW 06/02/17 09:51 Sodium 134 mEq/L (136-145) L 06/08/17 06:21 Potassium 3.8 mEq/L (3.5-5.1) 06/08/17 06:21 Chloride 103 mEq/L (98-107) 06/08/17 06:21 Carbon Dioxide 27.9 mEq/L (21.0-31.0) 06/08/17 06:21 Anion Gap 6.9 (7.0-16.0) L 06/08/17 06:21 BUN 19 mg/dL (7-25) 06/08/17 06:21 Creatinine 1.0 mg/dL (0.6-1.2) 06/08/17 06:21 Est GFR ( Amer) > 60.0 ml/min (>90) 06/08/17 06:21 Est GFR (Non-Af Amer) 58.4 ml/min 06/08/17 06:21 BUN/Creatinine Ratio 19.0 06/08/17 06:21 Glucose 145 mg/dL (70-105) H 06/08/17 06:21 POC Glucose 167 MG/DL (70 - 105) H 06/08/17 11:09 Hemoglobin A1c % 6.5 % (4.0-6.0) H 05/30/17 06:16 Whole Bld Lactic Acid 1.25 mmol/L (0.60-1.99) 05/28/17 16:22 Calcium 8.4 mg/dL (8.6-10.3) L 06/08/17 06:21 Phosphorus 4.8 mg/dL (2.5-5.0) 06/08/17 06:21 Magnesium 1.9 mg/dL (1.9-2.7) 06/08/17 06:21 Total Bilirubin 0.3 mg/dL (0.3-1.0) 06/07/17 06:20 AST 18 U/L (13-39) 06/07/17 06:20 ALT 34 U/L (7-52) 06/07/17 06:20 Alkaline Phosphatase 148 U/L (34-104) H 06/07/17 06:20 Troponin I 0.01 ng/mL (0.01-0.05) 05/28/17 16:22 Total Protein 5.2 gm/dL (6.0-8.3) L 06/07/17 06:20 Albumin 2.4 gm/dL (3.7-5.3) L 06/07/17 06:20 Globulin 2.8 gm/dL 06/07/17 06:20 Albumin/Globulin Ratio 0.9 (1.0-1.8) L 06/07/17 06:20 Prealbumin 11 mg/dL (10-36) 06/04/17 04:39 Triglycerides 79 mg/dL (<150) 05/31/17 05:25 Cholesterol 103 mg/dL (<200) 05/31/17 05:25 LDL Cholesterol Direct 78 mg/dL (75-193) 05/29/17 06:35 HDL Cholesterol 23 mg/dL (23-92) 05/29/17 06:35 Amylase 60 U/L (29-103) 05/28/17 16:22 Lipase 33 U/L (11-82) 05/28/17 16:22 TSH 1.14 uIU/ml (0.34-5.60) 05/29/17 06:35 Urine Source CATH 05/28/17 19:00 Urine Color YELLOW 05/28/17 19:00 Urine Clarity HAZY (CLEAR) 05/28/17 19:00 Urine pH 6.5 05/28/17 19:00 Ur Specific Prole 1.015 (1.005-1.030) 05/28/17 19:00 Urine Protein TRACE mg/dL (NEGATIVE) 05/28/17 19:00 Urine Glucose (UA) NEGATIVE mg/dL (NEGATIVE) 05/28/17 19:00 Urine Ketones NEGATIVE mg/dL (NEGATIVE) 05/28/17 19:00 Urine Blood TRACE (NEGATIVE) 05/28/17 19:00 Urine Nitrate NEGATIVE (NEGATIVE) 05/28/17 19:00 Urine Bilirubin NEGATIVE (NEGATIVE) 05/28/17 19:00 Urine Urobilinogen 0.2 E.U./dL (0.2 - 1.0) 05/28/17 19:00 Ur Leukocyte Esterase SMALL (NEGATIVE) H 05/28/17 19:00 Urine RBC 2-5 /hpf (0-5) 05/28/17 19:00 Urine WBC 50-100 /hpf (0-5) H 05/28/17 19:00 Ur Epithelial Cells FEW /lpf (FEW) 05/28/17 19:00 Urine Bacteria 1+ /hpf (NONE SEEN) H 05/28/17 19:00 Urine Mucus FEW /lpf (FEW) 05/28/17 19:00 Blood Type O POSITIVE 06/02/17 05:22 Antibody Screen NEGATIVE 06/02/17 05:22 Crossmatch See Detail 06/02/17 05:22 - Physical Exam Vitals and I&O: Vital Signs Temp 99.0 F 06/08/17 04:00 Pulse 90 06/08/17 11:48 Resp 18 06/08/17 11:48 BP 126/93 06/08/17 11:02 Pulse Ox 96 06/08/17 11:48 Intake & Output 06/07/17 06/08/17 06/08/17 18:59 06:59 18:59 Intake Total 2696.667 1900 Output Total 4950 Balance 2696.667 -2965 Weight (lbs) 73.936 kg Intake: Intake, IV Amount 2696.667 400 Colistimethate 150 mg In 100 Sodium Chloride 0.9% 100 ml @ 100 mls/hr IV Q12H [facility] Rx#:[id number] Linezolid 600mg/300mL 600 300 mg In 300 ml @ 300 mls/ hr IV Q12H [facility] Rx#: [id number] Meropenem 1 gm In Sodium 100 Chloride 0.9% 100 ml @ 100 mls/hr IV Q8HR [facility] Rx #:[id number] Multivitamin Inj 10 ml In 1196.667 Dextrose 70% 490 ml In Amino Acids 10% 500 ml In Intralipids 20% 200 ml @ 50 mls/hr IV .Q24H [facility] Rx#:[id number] Sodium Chloride 0.9% 1, 1000 000 ml @ 125 mls/hr IV . Q8H [facility] Rx#:[id number] Oral 950 TPN/PPN 550 Output: Drainage 5 Left Lower Abdomen 5 Urine 4850 Other 10 Other: # Bowel Movements 0 Active Medications: Current Medications Albuterol/Ipratropium (Duoneb Neb) 3 ml HHN Q4HRT [facility] Stop: 07/30/17 18:59 Last Admin: 06/08/17 11:42 Dose: 3 ml Budesonide (Pulmicort) 0.5 mg HHN BIDRT [facility] Stop: 07/30/17 18:59 Last Admin: 06/08/17 07:45 Dose: Not Given Clonidine HCl (Catapres) 0.2 mg PO DAILY [facility] Stop: 07/28/17 08:59 Last Admin: 06/08/17 10:02 Dose: 0.2 mg Diltiazem HCl (Cardizem) 20 mg IVP Q3H PRN PRN Reason: HR => 120 bpm Stop: 07/30/17 21:14 Last Admin: 06/01/17 01:08 Dose: 20 mg Gentamicin Sulfate (Gentak 0.3% [facility]) 1 drop EACH EYE BID [facility] Stop: 08/06/17 16:59 Last Admin: 06/08/17 10:03 Dose: 1 drop Multivitamins/Minerals 10 ml/Dextrose/ Amino Acids/Electrolytes/ Fat Emulsion Intravenous 1,200 mls @ 50 mls/hr IV .Q24H [facility] Stop: 07/29/17 14:59 Last Admin: 06/07/17 16:31 Dose: 50 mls/hr Sodium Chloride (Nacl 0.9%) 1,000 mls @ 125 mls/hr IV .Q8H [facility] Stop: 07/31/17 07:29 Last Admin: 06/08/17 00:23 Dose: 125 mls/hr Insulin Aspart (Novolog Insulin Sliding Scale) 0 units SUBQ ACHS [facility] PRN Reason: Protocol Stop: 07/31/17 07:29 Last Admin: 06/08/17 11:43 Dose: 4 units Lactobacillus Rhamnosus (Culturelle) 1 each PO DAILY [facility] Stop: 08/02/17 08:59 Last Admin: 06/08/17 10:02 Dose: 1 each Lorazepam (Ativan) 1 mg IVP Q6HR PRN; Protocol PRN Reason: Anxiety Stop: 07/31/17 07:30 Miscellaneous (Tpn Per Pharmacy) 1 ea DAILY [facility] Stop: 07/28/17 08:59 Miscellaneous (Probiotic Screen) 1 [facility] PRN PRN PRN Reason: PROTOCOL Stop: 08/01/17 11:22 Morphine Sulfate (Morphine) 2 mg IVP Q4HR PRN PRN Reason: Abdominal Pain Stop: 07/30/17 14:36 Last Admin: 06/08/17 10:03 Dose: 2 mg Morphine Sulfate (Morphine) 2 mg IV Q3HR PRN PRN Reason: Severe Pain Stop: 07/30/17 17:08 Last Admin: 06/05/17 21:22 Dose: 2 mg Ondansetron HCl (Zofran) 4 mg IV Q4H PRN PRN Reason: Nausea / Vomiting Stop: 08/02/17 20:54 Last Admin: 06/07/17 03:52 Dose: 4 mg Pantoprazole Sodium (Protonix) 40 mg PO BID [facility] Stop: 08/04/17 16:59 Last Admin: 06/08/17 10:01 Dose: 40 mg General: no acute distress, well developed, well nourished HEENT: atraumatic, normocephalic, PERRLA, EOMI, moist mucous membrane Neck: supple, no thyromegaly Cardiovascular: S1S2, regular Lungs: clear to auscultation bilaterally, clear to percussion Abdomen: soft, no tender, no distended Extremities: no cyanosis, no clubbing, no edema Neurological: awake, alert, oriented - Procedures Procedures: Procedures Procedure Code Date BYPASS STOMACH TO JEJUNUM, OPEN APPROACH [id number] 05/28/17 DRAINAGE OF PERITONEAL CAVITY WITH DRAIN DEV, OPEN APPROACH [id number] 01/25/17 FUSION OF STOMACH AND BOWEL [id number] 05/28/17 INSERT INFUSION DEV IN R INT JUGULAR VEIN, PERC [id number] 01/25/17 INSERTION OF INFUSION DEVICE INTO R [facility], PERC APPROACH [id number] 01/25/17 INSPECTION OF GASTROINTESTINAL TRACT, OPEN APPROACH [id number] 01/25/17 REMOVAL OF GALLBLADDER [id number] 01/25/17 REOPENING OF ABDOMEN 65180 01/25/17 REPAIR STOMACH, OPEN APPROACH [id number] 01/25/17 RESECTION OF GALLBLADDER, OPEN APPROACH [id number] 01/25/17 RESPIRATORY VENTILATION, 24-96 CONSECUTIVE HOURS [id number] 05/28/17 RESPIRATORY VENTILATION, LESS THAN 24 CONSECUTIVE HOURS [id number] 01/25/17 STOMACH SURGERY PROCEDURE [id number] 01/25/17 VENT MGMT INPAT IN DAY 48300 01/25/17 Infectious Disease Assmt/Plan - Problem List Patient Problems: All Active Problems H/O diabetes mellitus (Acute) Z86.39 H/O drug abuse (Acute) Z87.898 H/O: HTN (hypertension) (Acute) Z86.79 POSTCHOLECYSTECTOMY (Acute) UTI (urinary tract infection) (Acute) closeure og gastric perf (Acute) cplacement of new gj (Acute) h/o dementia (Acute) lysisi of adhesions (Acute) r/o sepsis (Acute) s/p surgery (Acute) septic shock (Acute) tachycardia (Acute) - Assessment Assessment: 1. Abdominal pain, lively peritonitis. treated. 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 3. UTI. 4. Leukocytosis. Improved. - Plan Plan: Off abx. Nutritional Asmnt/Malnutr-PDOC - Dietary Evaluation Malnutrition Findings (Please click <Entered> for more info): Nutritional Asmnt/Malnutrition Start: 05/30/17 15: 01 Text: Status: Complete Freq: Document 05/30/17 15:01 GSUN (Rec: 05/30/17 15:47 GSUN [facility]) Nutritional Asmnt/Malnutrition Patient General Information Nutritional Screening High Risk Screening Diagnosis Abd pain, gastrocutaneous fistula, UTI, leukocytosis ( improved) Pertinent Medical Hx/Surgical Hx HTN, DM, cholecystectomy past January 2017 Subjective Information 71 year old female from SNF. Upper GI series today, RN stated possible surgeries pending. Pt was alert and pleasant, appeared anxious, aware of medical condition and TPN/nutrition plan of care. RD explained TPN again, pt has no further questions. Pt reported she has been on TPN since January 2017. Found SNF TPN order in transfer chart, noted under "dosing weight: 134.4lb," pt confirmed wt 130lb measured this month. Questionabled EMR weight, unable to obtain CBW due to bedscale not calibrated. Unable to compelte physical assessment due to heavy blankets. Pt report usual BM pattern once every 2-3 days, given laxative at SNF to promote BM every day. Current Diet Order/ Nutrition Support D25% AA4.25% at 40ml/hr with IL20% 200ml, providing 1359kcal, 40g protein Pertinent Medications Novolog, TPN, Morphine, Multivitamins, Zofran, Protonix, Nacl 0.9% Pertinent Labs 05/29: triglycerides 89 WNL 05/30: BUN 29H (improving), creatinine WNL, glucose 197H, total bilirubin WNL, A1c 6.5H Nutritional Hx/Data Height 1.73 m Height (Calculated Centimeters) 172.7 Current Weight (lbs) 66.678 kg Weight (Calculated Kilograms) 66.7 Weight (Calculated Grams) 57317.1 Usual body Weight (lbs) 130 [place] Body Weight 154 Weight Status Approriate GI Symptoms GI Symptoms Vomitting Cultural/Ethnic/[employer] [facility]: Dextrose 288gm, AA96gm, IL 18g, 2010ml, providing 1525kcal. Skin Integrity/Comment: Asad Eid. panel cutter: abdomen rash/fistula, otherwise skin intact. Estimated Nutritional Goals Calories/Kcals/Kg UBW 130lb/59.1kg Kcals Calculated 1478-1773kcal (25-30kcal/kg) Protein Calculated 59-83g (1-1.4g/kg) Fluid: ml Per MD Nutritional Problem 1. 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 Recommend TPN D19% AA5.5% at 50ml/hr with IL20% 250ml, providing 1539kcal, 66g protein. Dx DM, 50% of total kcal from dextrose. Carb load 2.6mg/kg/min (using SNF weight 134.4lb/61.1kg). Pt has been on TPN since January 2017. 2. Obtain CBW, bedscale inproperly calibrated during visit. Dosing weight 134.4lb noted under SNF TPN order. Pt stated UBW 130lb. Expected Outcomes/Goals Expected Outcomes/Goals 1. Pt to meet 100% of estimated nutritional needs on TPN with tolerance.
[2017-06-08] MEDS: TPN 10%-70% CUSTOM IV SCH (17:07)
--- NOTE | 2017-06-08 20:32 | Progress Notes ---
DATE: 06/07/2017 PULMONARY PROGRESS NOTE PROBLEM LIST: 1. Chronic obstructive pulmonary disease. 2. Status post abdominal surgery. 3. Opioid dependence. 4. Obstructive sleep apnea syndrome. SYMPTOMS: Nil. Feeling okay. Still pain, no respiratory distress, etc. PHYSICAL EXAMINATION: VITAL SIGNS: The patient is afebrile. Her pulse is 80s, blood pressure 126/90, and saturation 96 on room air. ENT: Shows no new changes. CHEST: Shows diminished air entry. No other adventitious breath sounds. HEART: Regular. LABORATORY DATA: Electrolytes are okay with sodium of 134. ASSESSMENT: The patient is clinically seemingly improving. PLANS AND SUGGESTIONS: We will go ahead and continue current treatment. We will follow through respiratory status periodically and go from there. JOB# [id number]
[2017-06-09] MEDS: Albuterol/Ipratropium Neb 3 ML AERS HHN SCH ×5 (02:55→19:42)
[2017-06-09] MEDS: Morphine Sulfate 2 mg/mL 1mL Syr IVP PRN ×5 (04:06→21:18)
[2017-06-09] MEDS: Sodium Chloride 0.9% 1,000 ML IV SCH ×3 (05:19→22:46)
[2017-06-09] MEDS: INSULIN ASPART SLIDING SCALE 100 UNITS/ML UNIT SUBQ SCH ×5 (07:03→21:25)
[2017-06-09] MEDS: Budesonide 0.5 Mg/2 mL Ud HHN SCH ×2 (07:33→19:42)
[2017-06-09] MEDS: Lactobacillus Rhamnosus 10 Billion CFU Capsule PO SCH (08:32)
[2017-06-09] MEDS: Gentamicin 0.3% Ophth Soln 5mL Bottle EACH EYE SCH ×2 (08:32→16:12)
[2017-06-09] MEDS: Pantoprazole 40 mg EC Tab PO SCH ×2 (08:32→16:12)
--- NOTE | 2017-06-09 09:00 | General Progress Note ---
Subjective - Review of Systems Events since last encounter: no distress patient doing well Subjective: awake, alert, tolerating diet Objective - Results Result Diagrams: 06/07/17 06:20 06/08/17 06:21 Recent Labs: Laboratory Last Values WBC 6.8 Th/cmm (4.8-10.8) 06/07/17 06:20 RBC 3.27 Mil/cmm (3.80-5.20) L 06/07/17 06:20 Hgb 10.1 gm/dL (11.7-16.1) L 06/07/17 06:20 Hct 29.5 % (35.0-45.0) L 06/07/17 06:20 MCV 90.3 fl (81-100) 06/07/17 06:20 MCH 30.9 pg (27.0-31.0) 06/07/17 06:20 MCHC Differential 34.2 pg (28.0-36.0) 06/07/17 06:20 RDW 14.4 % (11.5-20.0) 06/07/17 06:20 Plt Count 223 Th/cmm (150-400) 06/07/17 06:20 MPV 7.6 fl 06/07/17 06:20 Neutrophils % 59.1 % (40.0-80.0) 06/07/17 06:20 Band Neutrophils % 2 % (0-10) 06/02/17 07:25 Lymphocytes % 21.9 % (20.0-50.0) 06/07/17 06:20 Monocytes % 11.9 % (2.0-10.0) H 06/07/17 06:20 Eosinophils % 6.7 % (0.0-5.0) H 06/07/17 06:20 Basophils % 0.4 % (0.0-2.0) 06/07/17 06:20 Neutrophils (Manual) 82 % (40-80) H 06/02/17 07:25 Lymphocytes 10 % (20-50) L 06/02/17 07:25 Monocytes 6 % (2-10) 06/02/17 07:25 Platelet Estimate ADEQUATE (NORMAL) 06/02/17 07:25 Platelet Morphology NORMAL (NORMAL) 06/02/17 07:25 Anisocytosis 1+ 06/02/17 07:25 RBC Morph Micro Appear ABNORMAL (NORMAL) 06/02/17 07:25 PT 11.0 SECONDS (9.5-11.5) 05/31/17 05:25 INR 1.06 (0.5-1.4) 05/31/17 05:25 Specimen Source Arterial 06/02/17 09:51 Sample Site Right Radial 06/02/17 09:51 pH 7.39 (7.35-7.45) 06/02/17 09:51 pCO2 43.0 mmHg (35.0-45.0) 06/02/17 09:51 pO2 144.0 mmHg (80.0-100.0) H 06/02/17 09:51 HCO3 25.6 mEq/L (20.0-26.0) 06/02/17 09:51 Base Excess 0.8 mEq/L (-3.0-3.0) 06/02/17 09:51 O2 Saturation 99.0 % (92.0-100.0) 06/02/17 09:51 Luther Test PASS 06/02/17 09:51 Vent Rate 6 06/01/17 08:44 Inspired O2 28 06/02/17 09:51 Tidal Volume 450 06/01/17 08:44 PEEP 5 06/01/17 08:44 Pressure (ins/psv/peep) 15 06/01/17 08:44 Critical Value PW 06/02/17 09:51 Sodium 134 mEq/L (136-145) L 06/08/17 06:21 Potassium 3.8 mEq/L (3.5-5.1) 06/08/17 06:21 Chloride 103 mEq/L (98-107) 06/08/17 06:21 Carbon Dioxide 27.9 mEq/L (21.0-31.0) 06/08/17 06:21 Anion Gap 6.9 (7.0-16.0) L 06/08/17 06:21 BUN 19 mg/dL (7-25) 06/08/17 06:21 Creatinine 1.0 mg/dL (0.6-1.2) 06/08/17 06:21 Est GFR ( Amer) > 60.0 ml/min (>90) 06/08/17 06:21 Est GFR (Non-Af Amer) 58.4 ml/min 06/08/17 06:21 BUN/Creatinine Ratio 19.0 06/08/17 06:21 Glucose 145 mg/dL (70-105) H 06/08/17 06:21 POC Glucose 158 MG/DL (70 - 105) H 06/09/17 07:01 Hemoglobin A1c % 6.5 % (4.0-6.0) H 05/30/17 06:16 Whole Bld Lactic Acid 1.25 mmol/L (0.60-1.99) 05/28/17 16:22 Calcium 8.4 mg/dL (8.6-10.3) L 06/08/17 06:21 Phosphorus 4.8 mg/dL (2.5-5.0) 06/08/17 06:21 Magnesium 1.9 mg/dL (1.9-2.7) 06/08/17 06:21 Total Bilirubin 0.3 mg/dL (0.3-1.0) 06/07/17 06:20 AST 18 U/L (13-39) 06/07/17 06:20 ALT 34 U/L (7-52) 06/07/17 06:20 Alkaline Phosphatase 148 U/L (34-104) H 06/07/17 06:20 Troponin I 0.01 ng/mL (0.01-0.05) 05/28/17 16:22 Total Protein 5.2 gm/dL (6.0-8.3) L 06/07/17 06:20 Albumin 2.4 gm/dL (3.7-5.3) L 06/07/17 06:20 Globulin 2.8 gm/dL 06/07/17 06:20 Albumin/Globulin Ratio 0.9 (1.0-1.8) L 06/07/17 06:20 Prealbumin 11 mg/dL (10-36) 06/04/17 04:39 Triglycerides 79 mg/dL (<150) 05/31/17 05:25 Cholesterol 103 mg/dL (<200) 05/31/17 05:25 LDL Cholesterol Direct 78 mg/dL (75-193) 05/29/17 06:35 HDL Cholesterol 23 mg/dL (23-92) 05/29/17 06:35 Amylase 60 U/L (29-103) 05/28/17 16:22 Lipase 33 U/L (11-82) 05/28/17 16:22 TSH 1.14 uIU/ml (0.34-5.60) 05/29/17 06:35 Urine Source CATH 05/28/17 19:00 Urine Color YELLOW 05/28/17 19:00 Urine Clarity HAZY (CLEAR) 05/28/17 19:00 Urine pH 6.5 05/28/17 19:00 Ur Specific [place] 1.015 (1.005-1.030) 05/28/17 19:00 Urine Protein TRACE mg/dL (NEGATIVE) 05/28/17 19:00 Urine Glucose (UA) NEGATIVE mg/dL (NEGATIVE) 05/28/17 19:00 Urine Ketones NEGATIVE mg/dL (NEGATIVE) 05/28/17 19:00 Urine Blood TRACE (NEGATIVE) 05/28/17 19:00 Urine Nitrate NEGATIVE (NEGATIVE) 05/28/17 19:00 Urine Bilirubin NEGATIVE (NEGATIVE) 05/28/17 19:00 Urine Urobilinogen 0.2 E.U./dL (0.2 - 1.0) 05/28/17 19:00 Ur Leukocyte Esterase SMALL (NEGATIVE) H 05/28/17 19:00 Urine RBC 2-5 /hpf (0-5) 05/28/17 19:00 Urine WBC 50-100 /hpf (0-5) H 05/28/17 19:00 Ur Epithelial Cells FEW /lpf (FEW) 05/28/17 19:00 Urine Bacteria 1+ /hpf (NONE SEEN) H 05/28/17 19:00 Urine Mucus FEW /lpf (FEW) 05/28/17 19:00 Blood Type O POSITIVE 06/02/17 05:22 Antibody Screen NEGATIVE 06/02/17 05:22 Crossmatch See Detail 06/02/17 05:22 - Physical Exam Vitals and I&O: Vital Signs Temp 99 F 06/09/17 04:00 Pulse 81 06/09/17 08:32 Resp 18 06/09/17 07:34 BP 143/62 06/09/17 04:00 Pulse Ox 96 06/09/17 07:34 Intake & Output 06/08/17 06/09/17 06/09/17 18:59 06:59 18:59 Intake Total 2800 1000 300 Output Total 1855 500 680 Balance 945 500 -380 Weight (lbs) 73.936 kg 69.655 kg 69.808 kg Intake: Intake, IV Amount 2200 1000 Multivitamin Inj 10 ml In 1200 Dextrose 70% 490 ml In Amino Acids 10% 500 ml In Intralipids 20% 200 ml @ 50 mls/hr IV .Q24H [facility] Rx#:[id number] Sodium Chloride 0.9% 1, 1000 1000 000 ml @ 125 mls/hr IV . Q8H [facility] Rx#:[id number] Oral 300 TPN/PPN 600 Output: Urine 1850 500 650 Other 5 30 Other: # Bowel Movements 0 0 0 Active Medications: Current Medications Albuterol/Ipratropium (Duoneb Neb) 3 ml HHN Q4HRT [facility] Stop: 07/30/17 18:59 Last Admin: 06/09/17 07:34 Dose: 3 ml Budesonide (Pulmicort) 0.5 mg HHN BIDRT [facility] Stop: 07/30/17 18:59 Last Admin: 06/09/17 07:33 Dose: 0.5 mg Clonidine HCl (Catapres) 0.2 mg PO DAILY [facility] Stop: 07/28/17 08:59 Last Admin: 06/09/17 08:32 Dose: 0.2 mg Diltiazem HCl (Cardizem) 20 mg IVP Q3H PRN PRN Reason: HR => 120 bpm Stop: 07/30/17 21:14 Last Admin: 06/01/17 01:08 Dose: 20 mg Gentamicin Sulfate (Gentak 0.3% Ophth Soln) 1 drop EACH EYE BID [facility] Stop: 08/06/17 16:59 Last Admin: 06/09/17 08:32 Dose: 1 drop Multivitamins/Minerals 10 ml/Dextrose/ Amino Acids/Electrolytes/ Fat Emulsion Intravenous 1,200 mls @ 50 mls/hr IV .Q24H [facility] Stop: 07/29/17 14:59 Last Admin: 06/08/17 17:07 Dose: 50 mls/hr Sodium Chloride (Nacl 0.9%) 1,000 mls @ 125 mls/hr IV .Q8H [facility] Stop: 07/31/17 07:29 Last Admin: 06/09/17 05:19 Dose: 125 mls/hr Insulin Aspart (Novolog Insulin Sliding Scale) 0 units SUBQ ACHS [facility] PRN Reason: Protocol Stop: 07/31/17 07:29 Last Admin: 06/09/17 07:07 Dose: 4 units Lactobacillus Rhamnosus (Culturelle) 1 each PO DAILY [facility] Stop: 08/02/17 08:59 Last Admin: 06/09/17 08:32 Dose: 1 each Lorazepam (Ativan) 1 mg IVP Q6HR PRN; Protocol PRN Reason: Anxiety Stop: 07/31/17 07:30 Miscellaneous (Tpn Per Pharmacy) 1 ea DAILY [facility] Stop: 07/28/17 08:59 Miscellaneous (Probiotic Screen) 1 [facility] PRN PRN PRN Reason: PROTOCOL Stop: 08/01/17 11:22 Morphine Sulfate (Morphine) 2 mg IVP Q4HR PRN PRN Reason: Abdominal Pain Stop: 07/30/17 14:36 Last Admin: 06/09/17 08:28 Dose: 2 mg Morphine Sulfate (Morphine) 2 mg IV Q3HR PRN PRN Reason: Severe Pain Stop: 07/30/17 17:08 Last Admin: 06/05/17 21:22 Dose: 2 mg Ondansetron HCl (Zofran) 4 mg IV Q4H PRN PRN Reason: Nausea / Vomiting Stop: 08/02/17 20:54 Last Admin: 06/07/17 03:52 Dose: 4 mg Pantoprazole Sodium (Protonix) 40 mg PO BID [facility] Stop: 08/04/17 16:59 Last Admin: 06/09/17 08:32 Dose: 40 mg General: No acute distress HEENT: Atraumatic Cardiovascular: Regular rate, Normal S1, Normal S2 Abdomen: Bowel sounds, Soft Neurological: Other (weak) - Procedures Procedures: Procedures Procedure Code Date BYPASS STOMACH TO JEJUNUM, OPEN APPROACH [id number] 05/28/17 DRAINAGE OF PERITONEAL CAVITY WITH DRAIN DEV, OPEN APPROACH [id number] 01/25/17 FUSION OF STOMACH AND BOWEL 56401 05/28/17 INSERT INFUSION DEV IN R INT JUGULAR VEIN, PERC [id number] 01/25/17 INSERTION OF INFUSION DEVICE INTO R ATRIUM, PERC APPROACH [id number] 01/25/17 INSPECTION OF GASTROINTESTINAL TRACT, OPEN APPROACH [id number] 01/25/17 REMOVAL OF GALLBLADDER 91475 01/25/17 REOPENING OF ABDOMEN 56107 01/25/17 REPAIR STOMACH, OPEN APPROACH [id number] 01/25/17 RESECTION OF GALLBLADDER, OPEN APPROACH [id number] 01/25/17 RESPIRATORY VENTILATION, 24-96 CONSECUTIVE HOURS [id number] 05/28/17 RESPIRATORY VENTILATION, LESS THAN 24 CONSECUTIVE HOURS [id number] 01/25/17 STOMACH SURGERY PROCEDURE 49401 01/25/17 VENT MGMT INPAT INIT DAY 75702 01/25/17 Assessment/Plan - Problem List Patient Problems: All Active Problems H/O diabetes mellitus (Acute) Z86.39 H/O drug abuse (Acute) Z87.898 H/O: HTN (hypertension) (Acute) Z86.79 POSTCHOLECYSTECTOMY (Acute) UTI (urinary tract infection) (Acute) closeure og gastric perf (Acute) cplacement of new gj (Acute) h/o dementia (Acute) lysisi of adhesions (Acute) r/o sepsis (Acute) s/p surgery (Acute) septic shock (Acute) tachycardia (Acute) - Assessment Assessment: epigastric pain gastritis ostomy hole with discharge s/p cholecystectomy - Plan Plan: continue to ambulate patient empiric ivabx am labs monitor glucose cpm Nutritional Asmnt/Malnutr-PDOC - Dietary Evaluation Malnutrition Findings (Please click <Entered> for more info): Nutritional Asmnt/Malnutrition Start: 05/30/17 15: 01 Text: Status: Complete Freq: Document 05/30/17 15:01 GSUN (Rec: 05/30/17 15:47 [email or web address] [id number]) Nutritional Asmnt/Malnutrition Patient General Information Nutritional Screening High Risk Screening Diagnosis Abd pain, gastrocutaneous fistula, UTI, leukocytosis ( improved) Pertinent Medical Hx/Surgical Hx HTN, DM, cholecystectomy past January 2017 Subjective Information 71 year old female from SNF. Upper GI series today, RN stated possible surgeries pending. Pt was alert and pleasant, appeared anxious, aware of medical condition and TPN/nutrition plan of care. RD explained TPN again, pt has no further questions. Pt reported she has been on TPN since January 2017. Found SNF TPN order in transfer chart, noted under "dosing weight: 134.4lb," pt confirmed wt 130lb measured this month. Questionabled EMR weight, unable to obtain CBW due to bedscale not calibrated. Unable to compelte physical assessment due to heavy blankets. Pt report usual BM pattern once every 2-3 days, given laxative at SNF to promote BM every day. Current Diet Order/ Nutrition Support D25% AA4.25% at 40ml/hr with IL20% 200ml, providing 1359kcal, 40g protein Pertinent Medications Novolog, TPN, Morphine, Multivitamins, Zofran, Protonix, Nacl 0.9% Pertinent Labs 05/29: triglycerides 89 WNL 05/30: BUN 29H (improving), creatinine WNL, glucose 197H, total bilirubin WNL, A1c 6.5H Nutritional Hx/Data Height 1.73 m Height (Calculated Centimeters) 172.7 Current Weight (lbs) 66.678 kg Weight (Calculated Kilograms) 66.7 Weight (Calculated Grams) 54975.1 Usual body Weight (lbs) 130 [place] Body Weight 154 Weight Status Approriate GI Symptoms GI Symptoms Vomitting Cultural/Ethnic/Tenriism Belief [facility]: Dextrose 288gm, AA96gm, IL 18g, 2010ml, providing 1525kcal. Skin Integrity/Comment: Asad Eid. cna ltc: abdomen rash/fistula, otherwise skin intact. Estimated Nutritional Goals Calories/Kcals/Kg UBW 130lb/59.1kg Kcals Calculated 1478-1773kcal (25-30kcal/kg) Protein Calculated 59-83g (1-1.4g/kg) Fluid: ml Per MD Nutritional Problem 1. 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 Recommend TPN D19% AA5.5% at 50ml/hr with IL20% 250ml, providing 1539kcal, 66g protein. Dx DM, 50% of total kcal from dextrose. Carb load 2.6mg/kg/min (using SNF weight 134.4lb/61.1kg). Pt has been on TPN since January 2017. 2. Obtain CBW, bedscale inproperly calibrated during visit. Dosing weight 134.4lb noted under SNF TPN order. Pt stated UBW 130lb. Expected Outcomes/Goals Expected Outcomes/Goals 1. Pt to meet 100% of estimated nutritional needs on TPN with tolerance.
[2017-06-09 09:49] LABS: ALB/GLOB RATIO 0.9 (1.0-1.8); ALKALINE PHOSPHATASE 144 U/L (34-104); ANION GAP 9.2 (7.0-16.0); BILIRUBIN,TOTAL 0.3 mg/dL (0.3-1.0); BUN - UREA NITROGEN 19 mg/dL (7-25); CALCIUM SERUM 8.7 mg/dL (8.6-10.3); CARBON DIOXIDE 26.7 mEq/L (21.0-31.0); CHLORIDE 106 mEq/L (98-107); GLUCOSE 99 mg/dL (70-105); MAGNESIUM 1.6 mg/dL (1.9-2.7); PHOSPHOROUS 4.9 mg/dL (2.5-5.0); POTASSIUM SERUM 3.9 mEq/L (3.5-5.1); SGOT 23 U/L (13-39); SGPT/ALT 25 U/L (7-52); SODIUM SERUM 138 mEq/L (136-145)
--- NOTE | 2017-06-09 11:21 | Infectious Disease Prog Note ---
Infectious Disease Subjective - Review of Systems Service Date: 06/09/17 Subjective: Doing well. Infectious Disease Objective - Results Result Diagrams: 06/07/17 06:20 06/09/17 09:00 Recent Labs: Laboratory Last Values WBC 6.8 Th/cmm (4.8-10.8) 06/07/17 06:20 RBC 3.27 Mil/cmm (3.80-5.20) L 06/07/17 06:20 Hgb 10.1 gm/dL (11.7-16.1) L 06/07/17 06:20 Hct 29.5 % (35.0-45.0) L 06/07/17 06:20 MCV 90.3 fl (81-100) 06/07/17 06:20 MCH 30.9 pg (27.0-31.0) 06/07/17 06:20 MCHC Differential 34.2 pg (28.0-36.0) 06/07/17 06:20 RDW 14.4 % (11.5-20.0) 06/07/17 06:20 Plt Count 223 Th/cmm (150-400) 06/07/17 06:20 MPV 7.6 fl 06/07/17 06:20 Neutrophils % 59.1 % (40.0-80.0) 06/07/17 06:20 Band Neutrophils % 2 % (0-10) 06/02/17 07:25 Lymphocytes % 21.9 % (20.0-50.0) 06/07/17 06:20 Monocytes % 11.9 % (2.0-10.0) H 06/07/17 06:20 Eosinophils % 6.7 % (0.0-5.0) H 06/07/17 06:20 Basophils % 0.4 % (0.0-2.0) 06/07/17 06:20 Neutrophils (Manual) 82 % (40-80) H 06/02/17 07:25 Lymphocytes 10 % (20-50) L 06/02/17 07:25 Monocytes 6 % (2-10) 06/02/17 07:25 Platelet Estimate ADEQUATE (NORMAL) 06/02/17 07:25 Platelet Morphology NORMAL (NORMAL) 06/02/17 07:25 Anisocytosis 1+ 06/02/17 07:25 RBC Morph Micro Appear ABNORMAL (NORMAL) 06/02/17 07:25 PT 11.0 SECONDS (9.5-11.5) 05/31/17 05:25 INR 1.06 (0.5-1.4) 05/31/17 05:25 Specimen Source Arterial 06/02/17 09:51 Sample Site Right Radial 06/02/17 09:51 pH 7.39 (7.35-7.45) 06/02/17 09:51 pCO2 43.0 mmHg (35.0-45.0) 06/02/17 09:51 pO2 144.0 mmHg (80.0-100.0) H 06/02/17 09:51 HCO3 25.6 mEq/L (20.0-26.0) 06/02/17 09:51 Base Excess 0.8 mEq/L (-3.0-3.0) 06/02/17 09:51 O2 Saturation 99.0 % (92.0-100.0) 06/02/17 09:51 Luther Test PASS 06/02/17 09:51 Vent Rate 6 06/01/17 08:44 Inspired O2 28 06/02/17 09:51 Tidal Volume 450 06/01/17 08:44 PEEP 5 06/01/17 08:44 Pressure (ins/psv/peep) 15 06/01/17 08:44 Critical Value PW 06/02/17 09:51 Sodium 138 mEq/L (136-145) 06/09/17 09:00 Potassium 3.9 mEq/L (3.5-5.1) 06/09/17 09:00 Chloride 106 mEq/L (98-107) 06/09/17 09:00 Carbon Dioxide 26.7 mEq/L (21.0-31.0) 06/09/17 09:00 Anion Gap 9.2 (7.0-16.0) 06/09/17 09:00 BUN 19 mg/dL (7-25) 06/09/17 09:00 Creatinine 1.0 mg/dL (0.6-1.2) 06/09/17 09:00 Est GFR ( Amer) > 60.0 ml/min (>90) 06/09/17 09:00 Est GFR (Non-Af Amer) 58.4 ml/min 06/09/17 09:00 BUN/Creatinine Ratio 19.0 06/09/17 09:00 Glucose 99 mg/dL (70-105) 06/09/17 09:00 POC Glucose 158 MG/DL (70 - 105) H 06/09/17 07:01 Hemoglobin A1c % 6.5 % (4.0-6.0) H 05/30/17 06:16 Whole Bld Lactic Acid 1.25 mmol/L (0.60-1.99) 05/28/17 16:22 Calcium 8.7 mg/dL (8.6-10.3) 06/09/17 09:00 Phosphorus 4.9 mg/dL (2.5-5.0) 06/09/17 09:00 Magnesium 1.6 mg/dL (1.9-2.7) L 06/09/17 09:00 Total Bilirubin 0.3 mg/dL (0.3-1.0) 06/09/17 09:00 AST 23 U/L (13-39) 06/09/17 09:00 ALT 25 U/L (7-52) 06/09/17 09:00 Alkaline Phosphatase 144 U/L (34-104) H 06/09/17 09:00 Troponin I 0.01 ng/mL (0.01-0.05) 05/28/17 16:22 Total Protein 5.6 gm/dL (6.0-8.3) L 06/09/17 09:00 Albumin 2.6 gm/dL (3.7-5.3) L 06/09/17 09:00 Globulin 3.0 gm/dL 06/09/17 09:00 Albumin/Globulin Ratio 0.9 (1.0-1.8) L 06/09/17 09:00 Prealbumin 11 mg/dL (10-36) 06/04/17 04:39 Triglycerides 79 mg/dL (<150) 05/31/17 05:25 Cholesterol 103 mg/dL (<200) 05/31/17 05:25 LDL Cholesterol Direct 78 mg/dL (75-193) 05/29/17 06:35 HDL Cholesterol 23 mg/dL (23-92) 05/29/17 06:35 Amylase 60 U/L (29-103) 05/28/17 16:22 Lipase 33 U/L (11-82) 05/28/17 16:22 TSH 1.14 uIU/ml (0.34-5.60) 05/29/17 06:35 Urine Source CATH 05/28/17 19:00 Urine Color YELLOW 05/28/17 19:00 Urine Clarity HAZY (CLEAR) 05/28/17 19:00 Urine pH 6.5 05/28/17 19:00 Ur Specific [place] 1.015 (1.005-1.030) 05/28/17 19:00 Urine Protein TRACE mg/dL (NEGATIVE) 05/28/17 19:00 Urine Glucose (UA) NEGATIVE mg/dL (NEGATIVE) 05/28/17 19:00 Urine Ketones NEGATIVE mg/dL (NEGATIVE) 05/28/17 19:00 Urine Blood TRACE (NEGATIVE) 05/28/17 19:00 Urine Nitrate NEGATIVE (NEGATIVE) 05/28/17 19:00 Urine Bilirubin NEGATIVE (NEGATIVE) 05/28/17 19:00 Urine Urobilinogen 0.2 E.U./dL (0.2 - 1.0) 05/28/17 19:00 Ur Leukocyte Esterase SMALL (NEGATIVE) H 05/28/17 19:00 Urine RBC 2-5 /hpf (0-5) 05/28/17 19:00 Urine WBC 50-100 /hpf (0-5) H 05/28/17 19:00 Ur Epithelial Cells FEW /lpf (FEW) 05/28/17 19:00 Urine Bacteria 1+ /hpf (NONE SEEN) H 05/28/17 19:00 Urine Mucus FEW /lpf (FEW) 05/28/17 19:00 Blood Type O POSITIVE 06/02/17 05:22 Antibody Screen NEGATIVE 06/02/17 05:22 Crossmatch See Detail 06/02/17 05:22 - Physical Exam Vitals and I&O: Vital Signs Temp 98.1 F 06/09/17 08:00 Pulse 81 06/09/17 08:32 Resp 19 06/09/17 08:00 BP 111/53 06/09/17 08:00 Pulse Ox 97 06/09/17 08:00 Intake & Output 06/08/17 06/09/17 06/09/17 18:59 06:59 18:59 Intake Total 2800 1000 300 Output Total 1855 500 680 Balance 945 500 -380 Weight (lbs) 73.936 kg 69.655 kg 69.808 kg Intake: Intake, IV Amount 2200 1000 Multivitamin Inj 10 ml In 1200 Dextrose 70% 490 ml In Amino Acids 10% 500 ml In Intralipids 20% 200 ml @ 50 mls/hr IV .Q24H [facility] Rx#:[id number] Sodium Chloride 0.9% 1, 1000 1000 000 ml @ 125 mls/hr IV . Q8H [facility] Rx#:[id number] Oral 300 TPN/PPN 600 Output: Urine 1850 500 650 Other 5 30 Other: # Bowel Movements 0 0 0 Active Medications: Current Medications Albuterol/Ipratropium (Duoneb Neb) 3 ml HHN Q4HRT [facility] Stop: 07/30/17 18:59 Last Admin: 06/09/17 07:34 Dose: 3 ml Budesonide (Pulmicort) 0.5 mg HHN BIDRT [facility] Stop: 07/30/17 18:59 Last Admin: 06/09/17 07:33 Dose: 0.5 mg Clonidine HCl (Catapres) 0.2 mg PO DAILY [facility] Stop: 07/28/17 08:59 Last Admin: 06/09/17 08:32 Dose: 0.2 mg Diltiazem HCl (Cardizem) 20 mg IVP Q3H PRN PRN Reason: HR => 120 bpm Stop: 07/30/17 21:14 Last Admin: 06/01/17 01:08 Dose: 20 mg Gentamicin Sulfate (Gentak 0.3% Oph Soln) 1 drop EACH EYE BID [facility] Stop: 08/06/17 16:59 Last Admin: 06/09/17 08:32 Dose: 1 drop Multivitamins/Minerals 10 ml/Dextrose/ Amino Acids/Electrolytes/ Fat Emulsion Intravenous 1,200 mls @ 50 mls/hr IV .Q24H [facility] Stop: 07/29/17 14:59 Last Admin: 06/08/17 17:07 Dose: 50 mls/hr Sodium Chloride (Nacl 0.9%) 1,000 mls @ 125 mls/hr IV .Q8H [facility] Stop: 07/31/17 07:29 Last Admin: 06/09/17 05:19 Dose: 125 mls/hr Insulin Aspart (Novolog Insulin Sliding Scale) 0 units SUBQ ACHS [facility] PRN Reason: Protocol Stop: 07/31/17 07:29 Last Admin: 06/09/17 07:07 Dose: 4 units Lactobacillus Rhamnosus (Culturelle) 1 each PO DAILY [facility] Stop: 08/02/17 08:59 Last Admin: 06/09/17 08:32 Dose: 1 each Lorazepam (Ativan) 1 mg IVP Q6HR PRN; Protocol PRN Reason: Anxiety Stop: 07/31/17 07:30 Miscellaneous (Tpn Per Pharmacy) 1 ea DAILY [facility] Stop: 07/28/17 08:59 Miscellaneous (Probiotic Screen) 1 ea PRN PRN PRN Reason: PROTOCOL Stop: 08/01/17 11:22 Morphine Sulfate (Morphine) 2 mg IVP Q4HR PRN PRN Reason: Abdominal Pain Stop: 07/30/17 14:36 Last Admin: 06/09/17 08:28 Dose: 2 mg Morphine Sulfate (Morphine) 2 mg IV Q3HR PRN PRN Reason: Severe Pain Stop: 07/30/17 17:08 Last Admin: 06/05/17 21:22 Dose: 2 mg Ondansetron HCl (Zofran) 4 mg IV Q4H PRN PRN Reason: Nausea / Vomiting Stop: 08/02/17 20:54 Last Admin: 06/07/17 03:52 Dose: 4 mg Pantoprazole Sodium (Protonix) 40 mg PO BID [facility] Stop: 08/04/17 16:59 Last Admin: 06/09/17 08:32 Dose: 40 mg General: no acute distress, well developed, well nourished HEENT: atraumatic, normocephalic, EOMI Neck: supple, no thyromegaly, no rigid Cardiovascular: S1S2, regular Lungs: clear to auscultation bilaterally, clear to percussion Abdomen: soft, no tender, no distended Extremities: no cyanosis, no clubbing, no edema Neurological: awake, alert, oriented - Procedures Procedures: Procedures Procedure Code Date BYPASS STOMACH TO JEJUNUM, OPEN APPROACH [id number] 05/28/17 DRAINAGE OF PERITONEAL CAVITY WITH DRAIN DEV, OPEN APPROACH [id number] 01/25/17 FUSION OF STOMACH AND BOWEL 46665 05/28/17 INSERT INFUSION DEV IN R INT JUGULAR VEIN, PERC [id number] 01/25/17 INSERTION OF INFUSION DEVICE INTO R ATRIUM, PERC APPROACH [id number] 01/25/17 INSPECTION OF GASTROINTESTINAL TRACT, OPEN APPROACH [id number] 01/25/17 REMOVAL OF GALLBLADDER [id number] 01/25/17 REOPENING OF ABDOMEN 27411 01/25/17 REPAIR STOMACH, OPEN APPROACH [id number] 01/25/17 RESECTION OF GALLBLADDER, OPEN APPROACH [id number] 01/25/17 RESPIRATORY VENTILATION, 24-96 CONSECUTIVE HOURS [id number] 05/28/17 RESPIRATORY VENTILATION, LESS THAN 24 CONSECUTIVE HOURS [id number] 01/25/17 STOMACH SURGERY PROCEDURE [id number] 01/25/17 VENT MGMT INPAT INIT DAY [id number] 01/25/17 Infectious Disease Assmt/Plan - Problem List Patient Problems: All Active Problems H/O diabetes mellitus (Acute) Z86.39 H/O drug abuse (Acute) Z87.898 H/O: HTN (hypertension) (Acute) Z86.79 POSTCHOLECYSTECTOMY (Acute) UTI (urinary tract infection) (Acute) closeure og gastric perf (Acute) cplacement of new gj (Acute) h/o dementia (Acute) lysisi of adhesions (Acute) r/o sepsis (Acute) s/p surgery (Acute) septic shock (Acute) tachycardia (Acute) - Assessment Assessment: 1. Abdominal pain, likely peritonitis. treated. 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 treated surgically. 3. UTI. treated. 4. Leukocytosis. Improved. - Plan Plan: Off abx. Nutritional Asmnt/Malnutr-PDOC - Dietary Evaluation Malnutrition Findings (Please click <Entered> for more info): Nutritional Asmnt/Malnutrition Start: 05/30/17 15: 01 Text: Status: Complete Freq: Document 05/30/17 15:01 GSUN (Rec: 05/30/17 15:47 GSUN [id number]) Nutritional Asmnt/Malnutrition Patient General Information Nutritional Screening High Risk Screening Diagnosis Abd pain, gastrocutaneous fistula, UTI, leukocytosis ( improved) Pertinent Medical Hx/Surgical Hx HTN, DM, cholecystectomy past January 2017 Subjective Information 71 year old female from [facility]. Upper GI series today, RN stated possible surgeries pending. Pt was alert and pleasant, appeared anxious, aware of medical condition and TPN/nutrition plan of care. RD explained TPN again, pt has no further questions. Pt reported she has been on TPN since January 2017. Found SNF TPN order in transfer chart, noted under "dosing weight: 134.4lb," pt confirmed wt 130lb measured this month. Questionabled EMR weight, unable to obtain CBW due to bedscale not calibrated. Unable to compelte physical assessment due to heavy blankets. Pt report usual BM pattern once every 2-3 days, given laxative at SNF to promote BM every day. Current Diet Order/ Nutrition Support D25% AA4.25% at 40ml/hr with IL20% 200ml, providing 1359kcal, 40g protein Pertinent Medications Novolog, TPN, Morphine, Multivitamins, Zofran, Protonix, Nacl 0.9% Pertinent Labs 05/29: triglycerides 89 WNL 05/30: BUN 29H (improving), creatinine WNL, glucose 197H, total bilirubin WNL, A1c 6.5H Nutritional Hx/Data Height 1.73 m Height (Calculated Centimeters) 172.7 Current Weight (lbs) 66.678 kg Weight (Calculated Kilograms) 66.7 Weight (Calculated Grams) 33651.1 Usual body Weight (lbs) 130 [place] Body Weight 154 Weight Status Approriate GI Symptoms GI Symptoms Vomitting Cultural/Ethnic/[employer] [facility]: Dextrose 288gm, AA96gm, IL 18g, 2010ml, providing 1525kcal. 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 Estimated Nutritional Goals Calories/Kcals/Kg UBW 130lb/59.1kg Kcals Calculated 1478-1773kcal (25-30kcal/kg) Protein Calculated 59-83g (1-1.4g/kg) Fluid: ml Per MD Nutritional Problem 1. 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 Recommend TPN D19% AA5.5% at 50ml/hr with IL20% 250ml, providing 1539kcal, 66g protein. Dx DM, 50% of total kcal from dextrose. Carb load 2.6mg/kg/min (using SNF weight 134.4lb/61.1kg). Pt has been on TPN since January 2017. 2. Obtain CBW, bedscale inproperly calibrated during visit. Dosing weight 134.4lb noted under SNF TPN order. Pt stated UBW 130lb. Expected Outcomes/Goals Expected Outcomes/Goals 1. Pt to meet 100% of estimated nutritional needs on TPN with tolerance.
[2017-06-09] MEDS: TPN 10%-70% CUSTOM IV SCH (15:03)
--- NOTE | 2017-06-09 16:14 | General Progress Note ---
Subjective - Review of Systems Service Date: 06/09/17 Events since last encounter: tolerating oral intake, passing flatus, no BM has been ambulating abdominal incision healing well with 30 overnight drainage Objective - Results Result Diagrams: 06/07/17 06:20 06/09/17 09:00 Recent Labs: Laboratory Last Values WBC 6.8 Th/cmm (4.8-10.8) 06/07/17 06:20 RBC 3.27 Mil/cmm (3.80-5.20) L 06/07/17 06:20 Hgb 10.1 gm/dL (11.7-16.1) L 06/07/17 06:20 Hct 29.5 % (35.0-45.0) L 06/07/17 06:20 MCV 90.3 fl (81-100) 06/07/17 06:20 MCH 30.9 pg (27.0-31.0) 06/07/17 06:20 MCHC Differential 34.2 pg (28.0-36.0) 06/07/17 06:20 RDW 14.4 % (11.5-20.0) 06/07/17 06:20 Plt Count 223 Th/cmm (150-400) 06/07/17 06:20 MPV 7.6 fl 06/07/17 06:20 Neutrophils % 59.1 % (40.0-80.0) 06/07/17 06:20 Band Neutrophils % 2 % (0-10) 06/02/17 07:25 Lymphocytes % 21.9 % (20.0-50.0) 06/07/17 06:20 Monocytes % 11.9 % (2.0-10.0) H 06/07/17 06:20 Eosinophils % 6.7 % (0.0-5.0) H 06/07/17 06:20 Basophils % 0.4 % (0.0-2.0) 06/07/17 06:20 Neutrophils (Manual) 82 % (40-80) H 06/02/17 07:25 Lymphocytes 10 % (20-50) L 06/02/17 07:25 Monocytes 6 % (2-10) 06/02/17 07:25 Platelet Estimate ADEQUATE (NORMAL) 06/02/17 07:25 Platelet Morphology NORMAL (NORMAL) 06/02/17 07:25 Anisocytosis 1+ 06/02/17 07:25 RBC Morph Micro Appear ABNORMAL (NORMAL) 06/02/17 07:25 PT 11.0 SECONDS (9.5-11.5) 05/31/17 05:25 INR 1.06 (0.5-1.4) 05/31/17 05:25 Specimen Source Arterial 06/02/17 09:51 Sample Site Right Radial 06/02/17 09:51 pH 7.39 (7.35-7.45) 06/02/17 09:51 pCO2 43.0 mmHg (35.0-45.0) 06/02/17 09:51 pO2 144.0 mmHg (80.0-100.0) H 06/02/17 09:51 HCO3 25.6 mEq/L (20.0-26.0) 06/02/17 09:51 Base Excess 0.8 mEq/L (-3.0-3.0) 06/02/17 09:51 O2 Saturation 99.0 % (92.0-100.0) 06/02/17 09:51 Luther Test PASS 06/02/17 09:51 Vent Rate 6 06/01/17 08:44 Inspired O2 28 06/02/17 09:51 Tidal Volume 450 06/01/17 08:44 PEEP 5 06/01/17 08:44 Pressure (ins/psv/peep) 15 06/01/17 08:44 Critical Value PW 06/02/17 09:51 Sodium 138 mEq/L (136-145) 06/09/17 09:00 Potassium 3.9 mEq/L (3.5-5.1) 06/09/17 09:00 Chloride 106 mEq/L (98-107) 06/09/17 09:00 Carbon Dioxide 26.7 mEq/L (21.0-31.0) 06/09/17 09:00 Anion Gap 9.2 (7.0-16.0) 06/09/17 09:00 BUN 19 mg/dL (7-25) 06/09/17 09:00 Creatinine 1.0 mg/dL (0.6-1.2) 06/09/17 09:00 Est GFR ( Amer) > 60.0 ml/min (>90) 06/09/17 09:00 Est GFR (Non-Af Amer) 58.4 ml/min 06/09/17 09:00 BUN/Creatinine Ratio 19.0 06/09/17 09:00 Glucose 99 mg/dL (70-105) 06/09/17 09:00 POC Glucose 101 MG/DL (70 - 105) 06/09/17 12:10 Hemoglobin A1c % 6.5 % (4.0-6.0) H 05/30/17 06:16 Whole Bld Lactic Acid 1.25 mmol/L (0.60-1.99) 05/28/17 16:22 Calcium 8.7 mg/dL (8.6-10.3) 06/09/17 09:00 Phosphorus 4.9 mg/dL (2.5-5.0) 06/09/17 09:00 Magnesium 1.6 mg/dL (1.9-2.7) L 06/09/17 09:00 Total Bilirubin 0.3 mg/dL (0.3-1.0) 06/09/17 09:00 AST 23 U/L (13-39) 06/09/17 09:00 ALT 25 U/L (7-52) 06/09/17 09:00 Alkaline Phosphatase 144 U/L (34-104) H 06/09/17 09:00 Troponin I 0.01 ng/mL (0.01-0.05) 05/28/17 16:22 Total Protein 5.6 gm/dL (6.0-8.3) L 06/09/17 09:00 Albumin 2.6 gm/dL (3.7-5.3) L 06/09/17 09:00 Globulin 3.0 gm/dL 06/09/17 09:00 Albumin/Globulin Ratio 0.9 (1.0-1.8) L 06/09/17 09:00 Prealbumin 11 mg/dL (10-36) 06/04/17 04:39 Triglycerides 79 mg/dL (<150) 05/31/17 05:25 Cholesterol 103 mg/dL (<200) 05/31/17 05:25 LDL Cholesterol Direct 78 mg/dL (75-193) 05/29/17 06:35 HDL Cholesterol 23 mg/dL (23-92) 05/29/17 06:35 Amylase 60 U/L (29-103) 05/28/17 16:22 Lipase 33 U/L (11-82) 05/28/17 16:22 TSH 1.14 uIU/ml (0.34-5.60) 05/29/17 06:35 Urine Source CATH 05/28/17 19:00 Urine Color YELLOW 05/28/17 19:00 Urine Clarity HAZY (CLEAR) 05/28/17 19:00 Urine pH 6.5 05/28/17 19:00 Ur Specific [place] 1.015 (1.005-1.030) 05/28/17 19:00 Urine Protein TRACE mg/dL (NEGATIVE) 05/28/17 19:00 Urine Glucose (UA) NEGATIVE mg/dL (NEGATIVE) 05/28/17 19:00 Urine Ketones NEGATIVE mg/dL (NEGATIVE) 05/28/17 19:00 Urine Blood TRACE (NEGATIVE) 05/28/17 19:00 Urine Nitrate NEGATIVE (NEGATIVE) 05/28/17 19:00 Urine Bilirubin NEGATIVE (NEGATIVE) 05/28/17 19:00 Urine Urobilinogen 0.2 E.U./dL (0.2 - 1.0) 05/28/17 19:00 Ur Leukocyte Esterase SMALL (NEGATIVE) H 05/28/17 19:00 Urine RBC 2-5 /hpf (0-5) 05/28/17 19:00 Urine WBC 50-100 /hpf (0-5) H 05/28/17 19:00 Ur Epithelial Cells FEW /lpf (FEW) 05/28/17 19:00 Urine Bacteria 1+ /hpf (NONE SEEN) H 05/28/17 19:00 Urine Mucus FEW /lpf (FEW) 05/28/17 19:00 Blood Type O POSITIVE 06/02/17 05:22 Antibody Screen NEGATIVE 06/02/17 05:22 Crossmatch See Detail 06/02/17 05:22 - Physical Exam Vitals and I&O: Vital Signs Temp 98.3 F 06/09/17 11:47 Pulse 85 06/09/17 12:04 Resp 18 06/09/17 12:04 BP 106/60 06/09/17 11:47 Pulse Ox 96 06/09/17 12:04 Intake & Output 06/08/17 06/09/17 06/09/17 18:59 06:59 18:59 Intake Total 2800 1000 2396.667 Output Total 1855 500 680 Balance 965 082 6102.667 Weight (lbs) 73.936 kg 69.655 kg 69.808 kg Intake: Intake, IV Amount 2200 1000 2096.667 Multivitamin Inj 10 ml In 1200 1096.667 Dextrose 70% 490 ml In Amino Acids 10% 500 ml In Intralipids 20% 200 ml @ 50 mls/hr IV .Q24H [facility] Rx#:[id number] Sodium Chloride 0.9% 1, 1000 1000 1000 000 ml @ 125 mls/hr IV . Q8H [facility] Rx#:[id number] Oral 300 TPN/PPN 600 Output: Urine 1850 500 650 Other 5 30 Other: # Bowel Movements 0 0 0 Active Medications: Current Medications Albuterol/Ipratropium (Duoneb Neb) 3 ml HHN Q4HRT [facility] Stop: 07/30/17 18:59 Last Admin: 06/09/17 12:04 Dose: 3 ml Budesonide (Pulmicort) 0.5 mg HHN BIDRT [facility] Stop: 07/30/17 18:59 Last Admin: 06/09/17 07:33 Dose: 0.5 mg Clonidine HCl (Catapres) 0.2 mg PO DAILY [facility] Stop: 07/28/17 08:59 Last Admin: 06/09/17 08:32 Dose: 0.2 mg Diltiazem HCl (Cardizem) 20 mg IVP Q3H PRN PRN Reason: HR => 120 bpm Stop: 07/30/17 21:14 Last Admin: 06/01/17 01:08 Dose: 20 mg Gentamicin Sulfate (Gentak 0.3% [facility]) 1 drop EACH EYE BID [facility] Stop: 08/06/17 16:59 Last Admin: 06/09/17 16:12 Dose: 1 drop Multivitamins/Minerals 10 ml/Dextrose/ Amino Acids/Electrolytes/ Fat Emulsion Intravenous 1,200 mls @ 50 mls/hr IV .Q24H [facility] Stop: 07/29/17 14:59 Last Admin: 06/09/17 15:03 Dose: 50 mls/hr Sodium Chloride (Nacl 0.9%) 1,000 mls @ 125 mls/hr IV .Q8H [facility] Stop: 07/31/17 07:29 Last Admin: 06/09/17 15:07 Dose: 125 mls/hr Insulin Aspart (Novolog Insulin Sliding Scale) 0 units SUBQ ACHS ANISH PRN Reason: Protocol Stop: 07/31/17 07:29 Last Admin: 06/09/17 12:14 Dose: Not Given Lactobacillus Rhamnosus (Culturelle) 1 each PO DAILY ANISH Stop: 08/02/17 08:59 Last Admin: 06/09/17 08:32 Dose: 1 each Lorazepam (Ativan) 1 mg IVP Q6HR PRN; Protocol PRN Reason: Anxiety Stop: 07/31/17 07:30 Miscellaneous (Tpn Per Pharmacy) 1 ea DAILY ANISH Stop: 07/28/17 08:59 Miscellaneous (Probiotic Screen) 1 [facility] PRN PRN PRN Reason: PROTOCOL Stop: 08/01/17 11:22 Morphine Sulfate (Morphine) 2 mg IVP Q4HR PRN PRN Reason: Abdominal Pain Stop: 07/30/17 14:36 Last Admin: 06/09/17 13:04 Dose: 2 mg Morphine Sulfate (Morphine) 2 mg IV Q3HR PRN PRN Reason: Severe Pain Stop: 07/30/17 17:08 Last Admin: 06/05/17 21:22 Dose: 2 mg Ondansetron HCl (Zofran) 4 mg IV Q4H PRN PRN Reason: Nausea / Vomiting Stop: 08/02/17 20:54 Last Admin: 06/07/17 03:52 Dose: 4 mg Pantoprazole Sodium (Protonix) 40 mg PO BID ANISH Stop: 08/04/17 16:59 Last Admin: 06/09/17 16:12 Dose: 40 mg General: No acute distress HEENT: Atraumatic Cardiovascular: Regular rate, Normal S1, Normal S2 Abdomen: Bowel sounds, Soft Neurological: Other (weak) - Procedures Procedures: Procedures Procedure Code Date BYPASS STOMACH TO JEJUNUM, OPEN APPROACH [id number] 05/28/17 DRAINAGE OF PERITONEAL CAVITY WITH DRAIN DEV, OPEN APPROACH [id number] 01/25/17 FUSION OF STOMACH AND BOWEL 91954 05/28/17 INSERT INFUSION DEV IN R INT JUGULAR VEIN, PERC [id number] 01/25/17 INSERTION OF INFUSION DEVICE INTO R ATRIUM, PERC APPROACH [id number] 01/25/17 INSPECTION OF GASTROINTESTINAL TRACT, OPEN APPROACH [id number] 01/25/17 REMOVAL OF GALLBLADDER 28164 03/21/17 REOPENING OF ABDOMEN 08458 01/25/17 REPAIR STOMACH, OPEN APPROACH [id number] 01/25/17 RESECTION OF GALLBLADDER, OPEN APPROACH [id number] 01/25/17 RESPIRATORY VENTILATION, 24-96 CONSECUTIVE HOURS [id number] 05/28/17 RESPIRATORY VENTILATION, LESS THAN 24 CONSECUTIVE HOURS [id number] 01/25/17 STOMACH SURGERY PROCEDURE 51384 01/25/17 VENT MGMT INPAT IN DAY 24721 01/25/17 Assessment/Plan - Problem List Patient Problems: All Active Problems H/O diabetes mellitus (Acute) Z86.39 H/O drug abuse (Acute) Z87.898 H/O: HTN (hypertension) (Acute) Z86.79 POSTCHOLECYSTECTOMY (Acute) UTI (urinary tract infection) (Acute) closeure og gastric perf (Acute) cplacement of new gj (Acute) h/o dementia (Acute) lysisi of adhesions (Acute) r/o sepsis (Acute) s/p surgery (Acute) septic shock (Acute) tachycardia (Acute) Nutritional Asmnt/Malnutr-PDOC - Dietary Evaluation Malnutrition Findings (Please click <Entered> for more info): Nutritional Asmnt/Malnutrition Start: 05/30/17 15: 01 Text: Status: Complete Freq: Document 05/30/17 15:01 GSUN (Rec: 05/30/17 15:47 GSUN [id number]) Nutritional Asmnt/Malnutrition Patient General Information Nutritional Screening High Risk Screening Diagnosis Abd pain, gastrocutaneous fistula, UTI, leukocytosis ( improved) Pertinent Medical Hx/Surgical Hx HTN, DM, cholecystectomy past January 2017 Subjective Information 71 year old female from SNF. Upper GI series today, RN stated possible surgeries pending. Pt was alert and pleasant, appeared anxious, aware of medical condition and TPN/nutrition plan of care. RD explained TPN again, pt has no further questions. Pt reported she has been on TPN since January 2017. Found SNF TPN order in transfer chart, noted under "dosing weight: 134.4lb," pt confirmed wt 130lb measured this month. Questionabled EMR weight, unable to obtain CBW due to bedscale not calibrated. Unable to compelte physical assessment due to heavy blankets. Pt report usual BM pattern once every 2-3 days, given laxative at SNF to promote BM every day. Current Diet Order/ Nutrition Support D25% AA4.25% at 40ml/hr with IL20% 200ml, providing 1359kcal, 40g protein Pertinent Medications Novolog, TPN, Morphine, Multivitamins, Zofran, Protonix, Nacl 0.9% Pertinent Labs 05/29: triglycerides 89 WNL 05/30: BUN 29H (improving), creatinine WNL, glucose 197H, total bilirubin WNL, A1c 6.5H Nutritional Hx/Data Height 1.73 m Height (Calculated Centimeters) 172.7 Current Weight (lbs) 66.678 kg Weight (Calculated Kilograms) 66.7 Weight (Calculated Grams) 18364.1 Usual body Weight (lbs) 130 [place] Body Weight 154 Weight Status Approriate GI Symptoms GI Symptoms Vomitting Cultural/Ethnic/[employer] [facility]: Dextrose 288gm, AA96gm, IL 18g, 2010ml, providing 1525kcal. Skin Integrity/Comment: Asad Eid. assessment specialist: abdomen rash/fistula, otherwise skin intact. Estimated Nutritional Goals Calories/Kcals/Kg UBW 130lb/59.1kg Kcals Calculated 1478-1773kcal (25-30kcal/kg) Protein Calculated 59-83g (1-1.4g/kg) Fluid: ml Per MD Nutritional Problem 1. 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 Recommend TPN D19% AA5.5% at 50ml/hr with IL20% 250ml, providing 1539kcal, 66g protein. Dx DM, 50% of total kcal from dextrose. Carb load 2.6mg/kg/min (using SNF weight 134.4lb/61.1kg). Pt has been on TPN since January 2017. 2. Obtain CBW, bedscale inproperly calibrated during visit. Dosing weight 134.4lb noted under SNF TPN order. Pt stated UBW 130lb. Expected Outcomes/Goals Expected Outcomes/Goals 1. Pt to meet 100% of estimated nutritional needs on TPN with tolerance.
--- NOTE | 2017-06-09 21:32 | Progress Notes ---
DATE: 06/09/2017 PROBLEM LIST: 1. Chronic obstructive pulmonary disease. 2. Status post abdominal surgery. 2. History of previous opioid dependency. SYMPTOMS: Nil, feeling okay, still taking liquid diet, no much of coughing or wheezing. PHYSICAL EXAMINATION: VITAL SIGNS: Temperature is 98.3, blood pressure 106/60, saturation 96. ENT: Shows no changes. CHEST: Shows diminished air entry with occasional rhonchi. HEART: Regular. ASSESSMENT: The patient is clinically stable respiratory-lynne, chronic obstructive pulmonary disease, opioid dependence, obstructive sleep apnea syndrome. PLANS AND SUGGESTIONS: We will go ahead and continue current treatment. We will follow through other studies in the next few days' time and go from there. JOB# [id number]
[2017-06-09 23:13] LABS: URINE BILIRUBIN NEGATIVE (NEGATIVE); URINE BLOOD MODERATE (NEGATIVE); URINE GLUCOSE (UA) NEGATIVE (NEGATIVE); URINE KETONE NEGATIVE (NEGATIVE); URINE PH 6.5 (4.6 - 8.0); URINE PROTEIN NEGATIVE (NEGATIVE); URINE UROBILINOGEN 0.2 E.U./dL (0.2 - 1.0)
[2017-06-09 23:26] LABS: URINE COLOR STRAW
[2017-06-09 23:29] LABS: URINE BACTERIA FEW /hpf (NONE SEEN); URINE EPITHELIAL CELLS OCCASIONAL /lpf (FEW); URINE WBC 0-2 /hpf (0-5)
[2017-06-10] MEDS: Albuterol/Ipratropium Neb 3 ML AERS HHN SCH ×7 (00:01→22:45)
[2017-06-10 02:05] LABS: AMPHETAMINE URINE NEGATIVE (NEGATIVE); BARBITURATES URINE NEGATIVE (NEGATIVE); METHADONE URINE NEGATIVE (NEGATIVE)
[2017-06-10] MEDS: Morphine Sulfate 2 mg/mL 1mL Syr IVP PRN ×5 (03:56→21:25)
[2017-06-10] MEDS: Sodium Chloride 0.9% 1,000 ML IV SCH ×2 (07:02→19:34)
[2017-06-10] MEDS: Budesonide 0.5 Mg/2 mL Ud HHN SCH ×2 (07:33→18:47)
[2017-06-10 07:44] LABS: ALB/GLOB RATIO 0.9 (1.0-1.8); ALKALINE PHOSPHATASE 127 U/L (34-104); ANION GAP 7.9 (7.0-16.0); BILIRUBIN,TOTAL 0.3 mg/dL (0.3-1.0); BUN - UREA NITROGEN 17 mg/dL (7-25); CALCIUM SERUM 8.3 mg/dL (8.6-10.3); CARBON DIOXIDE 25.4 mEq/L (21.0-31.0); CHLORIDE 108 mEq/L (98-107); GLUCOSE 201 mg/dL (70-105); MAGNESIUM 1.2 mg/dL (1.9-2.7); PHOSPHOROUS 5.1 mg/dL (2.5-5.0); POTASSIUM SERUM 4.3 mEq/L (3.5-5.1); SGOT 25 U/L (13-39); SGPT/ALT 25 U/L (7-52); SODIUM SERUM 137 mEq/L (136-145)
[2017-06-10] MEDS: INSULIN ASPART SLIDING SCALE 100 UNITS/ML UNIT SUBQ SCH ×4 (07:54→20:21)
--- NOTE | 2017-06-10 08:37 | General Progress Note ---
Subjective - Review of Systems Events since last encounter: patient has bee nwalking abdominal incision healing well no distress Subjective: awake, alert, tolerating diet Objective - Results Result Diagrams: 06/07/17 06:20 06/10/17 06:40 Recent Labs: Laboratory Last Values WBC 6.8 Th/cmm (4.8-10.8) 06/07/17 06:20 RBC 3.27 Mil/cmm (3.80-5.20) L 06/07/17 06:20 Hgb 10.1 gm/dL (11.7-16.1) L 06/07/17 06:20 Hct 29.5 % (35.0-45.0) L 06/07/17 06:20 MCV 90.3 fl (81-100) 06/07/17 06:20 MCH 30.9 pg (27.0-31.0) 06/07/17 06:20 MCHC Differential 34.2 pg (28.0-36.0) 06/07/17 06:20 RDW 14.4 % (11.5-20.0) 06/07/17 06:20 Plt Count 223 Th/cmm (150-400) 06/07/17 06:20 MPV 7.6 fl 06/07/17 06:20 Neutrophils % 59.1 % (40.0-80.0) 06/07/17 06:20 Band Neutrophils % 2 % (0-10) 06/02/17 07:25 Lymphocytes % 21.9 % (20.0-50.0) 06/07/17 06:20 Monocytes % 11.9 % (2.0-10.0) H 06/07/17 06:20 Eosinophils % 6.7 % (0.0-5.0) H 06/07/17 06:20 Basophils % 0.4 % (0.0-2.0) 06/07/17 06:20 Neutrophils (Manual) 82 % (40-80) H 06/02/17 07:25 Lymphocytes 10 % (20-50) L 06/02/17 07:25 Monocytes 6 % (2-10) 06/02/17 07:25 Platelet Estimate ADEQUATE (NORMAL) 06/02/17 07:25 Platelet Morphology NORMAL (NORMAL) 06/02/17 07:25 Anisocytosis 1+ 06/02/17 07:25 RBC Morph Micro Appear ABNORMAL (NORMAL) 06/02/17 07:25 PT 11.0 SECONDS (9.5-11.5) 05/31/17 05:25 INR 1.06 (0.5-1.4) 05/31/17 05:25 Specimen Source Arterial 06/02/17 09:51 Sample Site Right Radial 06/02/17 09:51 pH 7.39 (7.35-7.45) 06/02/17 09:51 pCO2 43.0 mmHg (35.0-45.0) 06/02/17 09:51 pO2 144.0 mmHg (80.0-100.0) H 06/02/17 09:51 HCO3 25.6 mEq/L (20.0-26.0) 06/02/17 09:51 Base Excess 0.8 mEq/L (-3.0-3.0) 06/02/17 09:51 O2 Saturation 99.0 % (92.0-100.0) 06/02/17 09:51 Luther Test PASS 06/02/17 09:51 Vent Rate 6 06/01/17 08:44 Inspired O2 28 06/02/17 09:51 Tidal Volume 450 06/01/17 08:44 PEEP 5 06/01/17 08:44 Pressure (ins/psv/peep) 15 06/01/17 08:44 Critical Value PW 06/02/17 09:51 Sodium 137 mEq/L (136-145) 06/10/17 06:40 Potassium 4.3 mEq/L (3.5-5.1) 06/10/17 06:40 Chloride 108 mEq/L (98-107) H 06/10/17 06:40 Carbon Dioxide 25.4 mEq/L (21.0-31.0) 06/10/17 06:40 Anion Gap 7.9 (7.0-16.0) 06/10/17 06:40 BUN 17 mg/dL (7-25) 06/10/17 06:40 Creatinine 1.0 mg/dL (0.6-1.2) 06/10/17 06:40 Est GFR ( Amer) > 60.0 ml/min (>90) 06/10/17 06:40 Est GFR (Non-Af Amer) 58.4 ml/min 06/10/17 06:40 BUN/Creatinine Ratio 17.0 06/10/17 06:40 Glucose 201 mg/dL (70-105) H 06/10/17 06:40 POC Glucose 185 MG/DL (70 - 105) H 06/10/17 06:39 Hemoglobin A1c % 6.5 % (4.0-6.0) H 05/30/17 06:16 Whole Bld Lactic Acid 1.25 mmol/L (0.60-1.99) 05/28/17 16:22 Calcium 8.3 mg/dL (8.6-10.3) L 06/10/17 06:40 Phosphorus 5.1 mg/dL (2.5-5.0) H 06/10/17 06:40 Magnesium 1.2 mg/dL (1.9-2.7) L 06/10/17 06:40 Total Bilirubin 0.3 mg/dL (0.3-1.0) 06/10/17 06:40 AST 25 U/L (13-39) 06/10/17 06:40 ALT 25 U/L (7-52) 06/10/17 06:40 Alkaline Phosphatase 127 U/L (34-104) H 06/10/17 06:40 Troponin I 0.01 ng/mL (0.01-0.05) 05/28/17 16:22 Total Protein 5.1 gm/dL (6.0-8.3) L 06/10/17 06:40 Albumin 2.4 gm/dL (3.7-5.3) L 06/10/17 06:40 Globulin 2.7 gm/dL 06/10/17 06:40 Albumin/Globulin Ratio 0.9 (1.0-1.8) L 06/10/17 06:40 Prealbumin 11 mg/dL (10-36) 06/04/17 04:39 Triglycerides 79 mg/dL (<150) 05/31/17 05:25 Cholesterol 103 mg/dL (<200) 05/31/17 05:25 LDL Cholesterol Direct 78 mg/dL (75-193) 05/29/17 06:35 HDL Cholesterol 23 mg/dL (23-92) 05/29/17 06:35 Amylase 60 U/L (29-103) 05/28/17 16:22 Lipase 33 U/L (11-82) 05/28/17 16:22 TSH 1.14 uIU/ml (0.34-5.60) 05/29/17 06:35 Urine Source [place] 06/09/17 22:35 Urine Color STRAW 06/09/17 22:35 Urine Clarity CLEAR (CLEAR) 06/09/17 22:35 Urine pH 6.5 (4.6 - 8.0) 06/09/17 22:35 Ur Specific Branch 1.010 (1.005-1.030) 06/09/17 22:35 Urine Protein NEGATIVE mg/dL (NEGATIVE) 06/09/17 22:35 Urine Glucose (UA) NEGATIVE mg/dL (NEGATIVE) 06/09/17 22:35 Urine Ketones NEGATIVE mg/dL (NEGATIVE) 06/09/17 22:35 Urine Blood MODERATE (NEGATIVE) H 06/09/17 22:35 Urine Nitrate NEGATIVE (NEGATIVE) 06/09/17 22:35 Urine Bilirubin NEGATIVE (NEGATIVE) 06/09/17 22:35 Urine Urobilinogen 0.2 E.U./dL (0.2 - 1.0) 06/09/17 22:35 Ur Leukocyte Esterase SMALL (NEGATIVE) H 06/09/17 22:35 Urine RBC 2-5 /hpf (0-5) 06/09/17 22:35 Urine WBC 0-2 /hpf (0-5) 06/09/17 22:35 Ur Epithelial Cells OCCASIONAL /lpf (FEW) 06/09/17 22:35 Urine Bacteria FEW /hpf (NONE SEEN) 06/09/17 22:35 Urine Mucus FEW /lpf (FEW) 05/28/17 19:00 Urine Opiates Screen POSITIVE (NEGATIVE) H 06/10/17 00:20 Urine Methadone Screen NEGATIVE (NEGATIVE) 06/10/17 00:20 Ur Barbiturates Screen NEGATIVE (NEGATIVE) 06/10/17 00:20 Ur Tricyclics Screen NEGATIVE (NEGATIVE) 06/10/17 00:20 Ur Phencyclidine Scrn NEGATIVE (NEGATIVE) 06/10/17 00:20 Amphetamines Screen NEGATIVE (NEGATIVE) 06/10/17 00:20 U Methamphetamines Scrn NEGATIVE (NEGATIVE) 06/10/17 00:20 U Benzodiazepines Scrn NEGATIVE (NEGATIVE) 06/10/17 00:20 U Cocaine Metab Screen NEGATIVE (NEGATIVE) 06/10/17 00:20 U Cannabinoids Screen NEGATIVE (NEGATIVE) 06/10/17 00:20 Blood Type O POSITIVE 06/02/17 05:22 Antibody Screen NEGATIVE 06/02/17 05:22 Crossmatch See Detail 06/02/17 05:22 - Physical Exam Vitals and I&O: Vital Signs Temp 97.7 F 06/10/17 08:00 Pulse 94 06/10/17 08:00 Resp 18 06/10/17 08:00 BP 121/56 06/10/17 08:00 Pulse Ox 100 06/10/17 08:00 Intake & Output 06/09/17 06/10/17 06/10/17 18:59 06:59 18:59 Intake Total 2396.667 1956.25 Output Total 680 30 Balance 2653.299 2679.25 -30 Weight (lbs) 69.808 kg 72.529 kg Intake: Intake, IV Amount 2096.667 1956.25 Multivitamin Inj 10 ml In 1096.667 Dextrose 70% 490 ml In Amino Acids 10% 500 ml In Intralipids 20% 200 ml @ 50 mls/hr IV .Q24H COUNTS INCLUDE 234 BEDS AT THE [facility] Rx#:[id number] Sodium Chloride 0.9% 1, 1000 1956.25 000 ml @ 125 mls/hr IV . Q8H COUNTS INCLUDE 234 BEDS AT THE [facility] Rx#:[id number] Oral 300 Output: Drainage 30 Left Lower Abdomen 30 Urine 650 Other 30 Other: # Bowel Movements 0 Active Medications: Current Medications Albuterol/Ipratropium (Duoneb Neb) 3 ml HHN Q4HRT COUNTS INCLUDE 234 BEDS AT THE [facility] Stop: 07/30/17 18:59 Last Admin: 06/10/17 07:33 Dose: 3 ml Budesonide (Pulmicort) 0.5 mg HHN BIDRT ANISH Stop: 07/30/17 18:59 Last Admin: 06/10/17 07:33 Dose: 0.5 mg Clonidine HCl (Catapres) 0.2 mg PO DAILY COUNTS INCLUDE 234 BEDS AT THE [facility] Stop: 07/28/17 08:59 Last Admin: 06/09/17 08:32 Dose: 0.2 mg Diltiazem HCl (Cardizem) 20 mg IVP Q3H PRN PRN Reason: HR => 120 bpm Stop: 07/30/17 21:14 Last Admin: 06/01/17 01:08 Dose: 20 mg Gentamicin Sulfate ([place]entak 0.3% [facility]) 1 drop EACH EYE BID ANISH Stop: 08/06/17 16:59 Last Admin: 06/09/17 16:12 Dose: 1 drop Multivitamins/Minerals 10 ml/Dextrose/ Amino Acids/Electrolytes/ Fat Emulsion Intravenous 1,200 mls @ 50 mls/hr IV .Q24H ANISH Stop: 07/29/17 14:59 Last Admin: 06/09/17 15:03 Dose: 50 mls/hr Sodium Chloride (Nacl 0.9%) 1,000 mls @ 125 mls/hr IV .Q8H ANISH Stop: 07/31/17 07:29 Last Admin: 06/10/17 07:02 Dose: 125 mls/hr Insulin Aspart (Novolog Insulin Sliding Scale) 0 units SUBQ ACHS ANISH PRN Reason: Protocol Stop: 07/31/17 07:29 Last Admin: 06/10/17 07:54 Dose: 4 units Lactobacillus Rhamnosus (Culturelle) 1 each PO DAILY ANISH Stop: 08/02/17 08:59 Last Admin: 06/09/17 08:32 Dose: 1 each Lorazepam (Ativan) 1 mg IVP Q6HR PRN; Protocol PRN Reason: Anxiety Stop: 07/31/17 07:30 Miscellaneous (Tpn Per Pharmacy) 1 ea MC DAILY ANISH Stop: 07/28/17 08:59 Miscellaneous (Probiotic Screen) 1 [facility] PRN PRN PRN Reason: PROTOCOL Stop: 08/01/17 11:22 Morphine Sulfate (Morphine) 2 mg IVP Q4HR PRN PRN Reason: Abdominal Pain Stop: 07/30/17 14:36 Last Admin: 06/10/17 03:56 Dose: 2 mg Morphine Sulfate (Morphine) 2 mg IV Q3HR PRN PRN Reason: Severe Pain Stop: 07/30/17 17:08 Last Admin: 06/05/17 21:22 Dose: 2 mg Ondansetron HCl (Zofran) 4 mg IV Q4H PRN PRN Reason: Nausea / Vomiting Stop: 08/02/17 20:54 Last Admin: 06/07/17 03:52 Dose: 4 mg Pantoprazole Sodium (Protonix) 40 mg PO BID ANISH Stop: 08/04/17 16:59 Last Admin: 06/09/17 16:12 Dose: 40 mg General: No acute distress HEENT: Atraumatic Cardiovascular: Regular rate, Normal S1, Normal S2 Abdomen: Bowel sounds, Soft Neurological: Other (weak) - Procedures Procedures: Procedures Procedure Code Date BYPASS STOMACH TO JEJUNUM, OPEN APPROACH [id number] 05/28/17 DRAINAGE OF PERITONEAL CAVITY WITH DRAIN DEV, OPEN APPROACH [id number] 01/25/17 FUSION OF STOMACH AND BOWEL [id number] 05/28/17 INSERT INFUSION DEV IN R INT JUGULAR VEIN, PERC [id number] 01/25/17 INSERTION OF INFUSION DEVICE INTO R ATRIUM, PERC APPROACH [id number] 01/25/17 INSPECTION OF GASTROINTESTINAL TRACT, OPEN APPROACH [id number] 01/25/17 REMOVAL OF GALLBLADDER [id number] 01/25/17 REOPENING OF ABDOMEN 91893 01/25/17 REPAIR STOMACH, OPEN APPROACH [id number] 01/25/17 RESECTION OF GALLBLADDER, OPEN APPROACH [id number] 01/25/17 RESPIRATORY VENTILATION, 24-96 CONSECUTIVE HOURS [id number] 05/28/17 RESPIRATORY VENTILATION, LESS THAN 24 CONSECUTIVE HOURS [id number] 01/25/17 STOMACH SURGERY PROCEDURE 15535 01/25/17 VENT MGMT INPAT INIT DAY 20409 01/25/17 Assessment/Plan - Problem List Patient Problems: All Active Problems H/O diabetes mellitus (Acute) Z86.39 H/O drug abuse (Acute) Z87.898 H/O: HTN (hypertension) (Acute) Z86.79 POSTCHOLECYSTECTOMY (Acute) UTI (urinary tract infection) (Acute) closeure og gastric perf (Acute) cplacement of new gj (Acute) h/o dementia (Acute) lysisi of adhesions (Acute) r/o sepsis (Acute) s/p surgery (Acute) septic shock (Acute) tachycardia (Acute) - Assessment Assessment: epigastric pain gastritis ostomy hole with discharge s/p cholecystectomy - Plan Plan: continue to ambulate patient empiric ivabx am labs monitor glucose cpm Nutritional Asmnt/Malnutr-PDOC - Dietary Evaluation Malnutrition Findings (Please click <Entered> for more info): Nutritional Asmnt/Malnutrition Start: 05/30/17 15: 01 Text: Status: Complete Freq: Document 05/30/17 15:01 GSUN (Rec: 05/30/17 15:47 GSUN [id number]) Nutritional Asmnt/Malnutrition Patient General Information Nutritional Screening High Risk Screening Diagnosis Abd pain, gastrocutaneous fistula, UTI, leukocytosis ( improved) Pertinent Medical Hx/Surgical Hx HTN, DM, cholecystectomy past January 2017 Subjective Information 71 year old female from SNF. Upper GI series today, RN stated possible surgeries pending. Pt was alert and pleasant, appeared anxious, aware of medical condition and TPN/nutrition plan of care. RD explained TPN again, pt has no further questions. Pt reported she has been on TPN since January 2017. Found SNF TPN order in transfer chart, noted under "dosing weight: 134.4lb," pt confirmed wt 130lb measured this month. Questionabled EMR weight, unable to obtain CBW due to bedscale not calibrated. Unable to compelte physical assessment due to heavy blankets. Pt report usual BM pattern once every 2-3 days, given laxative at SNF to promote BM every day. Current Diet Order/ Nutrition Support D25% AA4.25% at 40ml/hr with IL20% 200ml, providing 1359kcal, 40g protein Pertinent Medications Novolog, TPN, Morphine, Multivitamins, Zofran, Protonix, Nacl 0.9% Pertinent Labs 05/29: triglycerides 89 WNL 05/30: BUN 29H (improving), creatinine WNL, glucose 197H, total bilirubin WNL, A1c 6.5H Nutritional Hx/Data Height 1.73 m Height (Calculated Centimeters) 172.7 Current Weight (lbs) 66.678 kg Weight (Calculated Kilograms) 66.7 Weight (Calculated Grams) 34981.1 Usual body Weight (lbs) 130 [place] Body Weight 154 Weight Status Approriate GI Symptoms GI Symptoms Vomitting Cultural/Ethnic/[employer] [facility]: Dextrose 288gm, AA96gm, IL 18g, 2010ml, providing 1525kcal. 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 Estimated Nutritional Goals Calories/Kcals/Kg UBW 130lb/59.1kg Kcals Calculated 1478-1773kcal (25-30kcal/kg) Protein Calculated 59-83g (1-1.4g/kg) Fluid: ml Per MD Nutritional Problem 1. 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 Recommend TPN D19% AA5.5% at 50ml/hr with IL20% 250ml, providing 1539kcal, 66g protein. Dx DM, 50% of total kcal from dextrose. Carb load 2.6mg/kg/min (using SNF weight 134.4lb/61.1kg). Pt has been on TPN since January 2017. 2. Obtain CBW, bedscale inproperly calibrated during visit. Dosing weight 134.4lb noted under SNF TPN order. Pt stated UBW 130lb. Expected Outcomes/Goals Expected Outcomes/Goals 1. Pt to meet 100% of estimated nutritional needs on TPN with tolerance.
[2017-06-10] MEDS: Lactobacillus Rhamnosus 10 Billion CFU Capsule PO SCH (09:25)
[2017-06-10] MEDS: Gentamicin 0.3% Ophth Soln 5mL Bottle EACH EYE SCH ×2 (09:25→16:24)
[2017-06-10] MEDS: Pantoprazole 40 mg EC Tab PO SCH ×2 (09:25→16:24)
[2017-06-10] MEDS ORDERED: Mag Sulfate 2gm/50mL Premix 2 GM/50 ML BAG IV ONE (09:45)
--- NOTE | 2017-06-10 14:49 | General Progress Note ---
Subjective - Review of Systems Service Date: 06/10/17 Events since last encounter: SANCHEZ drain out tolerating oral intake DC tpn may have Ensure tid passing flatus, no BM except when given Fleet enema may DC Objective - Results Result Diagrams: 06/07/17 06:20 06/10/17 06:40 Recent Labs: Laboratory Last Values WBC 6.8 Th/cmm (4.8-10.8) 06/07/17 06:20 RBC 3.27 Mil/cmm (3.80-5.20) L 06/07/17 06:20 Hgb 10.1 gm/dL (11.7-16.1) L 06/07/17 06:20 Hct 29.5 % (35.0-45.0) L 06/07/17 06:20 MCV 90.3 fl (81-100) 06/07/17 06:20 MCH 30.9 pg (27.0-31.0) 06/07/17 06:20 MCHC Differential 34.2 pg (28.0-36.0) 06/07/17 06:20 RDW 14.4 % (11.5-20.0) 06/07/17 06:20 Plt Count 223 Th/cmm (150-400) 06/07/17 06:20 MPV 7.6 fl 06/07/17 06:20 Neutrophils % 59.1 % (40.0-80.0) 06/07/17 06:20 Band Neutrophils % 2 % (0-10) 06/02/17 07:25 Lymphocytes % 21.9 % (20.0-50.0) 06/07/17 06:20 Monocytes % 11.9 % (2.0-10.0) H 06/07/17 06:20 Eosinophils % 6.7 % (0.0-5.0) H 06/07/17 06:20 Basophils % 0.4 % (0.0-2.0) 06/07/17 06:20 Neutrophils (Manual) 82 % (40-80) H 06/02/17 07:25 Lymphocytes 10 % (20-50) L 06/02/17 07:25 Monocytes 6 % (2-10) 06/02/17 07:25 Platelet Estimate ADEQUATE (NORMAL) 06/02/17 07:25 Platelet Morphology NORMAL (NORMAL) 06/02/17 07:25 Anisocytosis 1+ 06/02/17 07:25 RBC Morph Micro Appear ABNORMAL (NORMAL) 06/02/17 07:25 PT 11.0 SECONDS (9.5-11.5) 05/31/17 05:25 INR 1.06 (0.5-1.4) 05/31/17 05:25 Specimen Source Arterial 06/02/17 09:51 Sample Site Right Radial 06/02/17 09:51 pH 7.39 (7.35-7.45) 06/02/17 09:51 pCO2 43.0 mmHg (35.0-45.0) 06/02/17 09:51 pO2 144.0 mmHg (80.0-100.0) H 06/02/17 09:51 HCO3 25.6 mEq/L (20.0-26.0) 06/02/17 09:51 Base Excess 0.8 mEq/L (-3.0-3.0) 06/02/17 09:51 O2 Saturation 99.0 % (92.0-100.0) 06/02/17 09:51 Luther Test PASS 06/02/17 09:51 Vent Rate 6 06/01/17 08:44 Inspired O2 28 06/02/17 09:51 Tidal Volume 450 06/01/17 08:44 PEEP 5 06/01/17 08:44 Pressure (ins/psv/peep) 15 06/01/17 08:44 Critical Value PW 06/02/17 09:51 Sodium 137 mEq/L (136-145) 06/10/17 06:40 Potassium 4.3 mEq/L (3.5-5.1) 06/10/17 06:40 Chloride 108 mEq/L (98-107) H 06/10/17 06:40 Carbon Dioxide 25.4 mEq/L (21.0-31.0) 06/10/17 06:40 Anion Gap 7.9 (7.0-16.0) 06/10/17 06:40 BUN 17 mg/dL (7-25) 06/10/17 06:40 Creatinine 1.0 mg/dL (0.6-1.2) 06/10/17 06:40 Est GFR ( Amer) > 60.0 ml/min (>90) 06/10/17 06:40 Est GFR (Non-Af Amer) 58.4 ml/min 06/10/17 06:40 BUN/Creatinine Ratio 17.0 06/10/17 06:40 Glucose 201 mg/dL (70-105) H 06/10/17 06:40 POC Glucose 176 MG/DL (70 - 105) H 06/10/17 11:33 Hemoglobin A1c % 6.5 % (4.0-6.0) H 05/30/17 06:16 Whole Bld Lactic Acid 1.25 mmol/L (0.60-1.99) 05/28/17 16:22 Calcium 8.3 mg/dL (8.6-10.3) L 06/10/17 06:40 Phosphorus 5.1 mg/dL (2.5-5.0) H 06/10/17 06:40 Magnesium 1.2 mg/dL (1.9-2.7) L 06/10/17 06:40 Total Bilirubin 0.3 mg/dL (0.3-1.0) 06/10/17 06:40 AST 25 U/L (13-39) 06/10/17 06:40 ALT 25 U/L (7-52) 06/10/17 06:40 Alkaline Phosphatase 127 U/L (34-104) H 06/10/17 06:40 Troponin I 0.01 ng/mL (0.01-0.05) 05/28/17 16:22 Total Protein 5.1 gm/dL (6.0-8.3) L 06/10/17 06:40 Albumin 2.4 gm/dL (3.7-5.3) L 06/10/17 06:40 Globulin 2.7 gm/dL 06/10/17 06:40 Albumin/Globulin Ratio 0.9 (1.0-1.8) L 06/10/17 06:40 Prealbumin 11 mg/dL (10-36) 06/04/17 04:39 Triglycerides 79 mg/dL (<150) 05/31/17 05:25 Cholesterol 103 mg/dL (<200) 05/31/17 05:25 LDL Cholesterol Direct 78 mg/dL (75-193) 05/29/17 06:35 HDL Cholesterol 23 mg/dL (23-92) 05/29/17 06:35 Amylase 60 U/L (29-103) 05/28/17 16:22 Lipase 33 U/L (11-82) 05/28/17 16:22 TSH 1.14 uIU/ml (0.34-5.60) 05/29/17 06:35 Urine Source [place] 06/09/17 22:35 Urine Color STRAW 06/09/17 22:35 Urine Clarity CLEAR (CLEAR) 06/09/17 22:35 Urine pH 6.5 (4.6 - 8.0) 06/09/17 22:35 Ur Specific [place] 1.010 (1.005-1.030) 06/09/17 22:35 Urine Protein NEGATIVE mg/dL (NEGATIVE) 06/09/17 22:35 Urine Glucose (UA) NEGATIVE mg/dL (NEGATIVE) 06/09/17 22:35 Urine Ketones NEGATIVE mg/dL (NEGATIVE) 06/09/17 22:35 Urine Blood MODERATE (NEGATIVE) H 06/09/17 22:35 Urine Nitrate NEGATIVE (NEGATIVE) 06/09/17 22:35 Urine Bilirubin NEGATIVE (NEGATIVE) 06/09/17 22:35 Urine Urobilinogen 0.2 E.U./dL (0.2 - 1.0) 06/09/17 22:35 Ur Leukocyte Esterase SMALL (NEGATIVE) H 06/09/17 22:35 Urine RBC 2-5 /hpf (0-5) 06/09/17 22:35 Urine WBC 0-2 /hpf (0-5) 06/09/17 22:35 Ur Epithelial Cells OCCASIONAL /lpf (FEW) 06/09/17 22:35 Urine Bacteria FEW /hpf (NONE SEEN) 06/09/17 22:35 Urine Mucus FEW /lpf (FEW) 05/28/17 19:00 Urine Opiates Screen POSITIVE (NEGATIVE) H 06/10/17 00:20 Urine Methadone Screen NEGATIVE (NEGATIVE) 06/10/17 00:20 Ur Barbiturates Screen NEGATIVE (NEGATIVE) 06/10/17 00:20 Ur Tricyclics Screen NEGATIVE (NEGATIVE) 06/10/17 00:20 Ur Phencyclidine Scrn NEGATIVE (NEGATIVE) 06/10/17 00:20 Amphetamines Screen NEGATIVE (NEGATIVE) 06/10/17 00:20 U Methamphetamines Scrn NEGATIVE (NEGATIVE) 06/10/17 00:20 U Benzodiazepines Scrn NEGATIVE (NEGATIVE) 06/10/17 00:20 U Cocaine Metab Screen NEGATIVE (NEGATIVE) 06/10/17 00:20 U Cannabinoids Screen NEGATIVE (NEGATIVE) 06/10/17 00:20 Blood Type O POSITIVE 06/02/17 05:22 Antibody Screen NEGATIVE 06/02/17 05:22 Crossmatch See Detail 06/02/17 05:22 - Physical Exam Vitals and I&O: Vital Signs Temp 97.9 F 06/10/17 12:07 Pulse 93 06/10/17 12:45 Resp 18 06/10/17 12:45 BP 117/66 06/10/17 12:07 Pulse Ox 97 06/10/17 12:45 Intake & Output 06/09/17 06/10/17 06/10/17 18:59 06:59 18:59 Intake Total 2396.667 1956.25 Output Total 680 30 Balance 0411.739 2101.25 -30 Weight (lbs) 69.808 kg 72.529 kg Intake: Intake, IV Amount 2096.667 1956.25 Multivitamin Inj 10 ml In 1096.667 Dextrose 70% 490 ml In Amino Acids 10% 500 ml In Intralipids 20% 200 ml @ 50 mls/hr IV .Q24H [facility] Rx#:[id number] Sodium Chloride 0.9% 1, 1000 1956.25 000 ml @ 125 mls/hr IV . Q8H [facility] Rx#:[id number] Oral 300 Output: Drainage 30 Left Lower Abdomen 30 Urine 650 Other 30 Other: # Bowel Movements 0 Active Medications: Current Medications Albuterol/Ipratropium (Duoneb Neb) 3 ml HHN Q4HRT [facility] Stop: 07/30/17 18:59 Last Admin: 06/10/17 12:45 Dose: 3 ml Budesonide (Pulmicort) 0.5 mg HHN BIDRT [facility] Stop: 07/30/17 18:59 Last Admin: 06/10/17 07:33 Dose: 0.5 mg Diltiazem HCl (Cardizem) 20 mg IVP Q3H PRN PRN Reason: HR => 120 bpm Stop: 07/30/17 21:14 Last Admin: 06/01/17 01:08 Dose: 20 mg Gentamicin Sulfate ([place] 0.3% [facility]) 1 drop EACH EYE BID [facility] Stop: 08/06/17 16:59 Last Admin: 06/10/17 09:25 Dose: 1 drop Multivitamins/Minerals 10 ml/Dextrose/ Amino Acids/Electrolytes/ Fat Emulsion Intravenous 1,200 mls @ 50 mls/hr IV .Q24H [facility] Stop: 07/29/17 14:59 Last Admin: 06/09/17 15:03 Dose: 50 mls/hr Sodium Chloride (Nacl 0.9%) 1,000 mls @ 125 mls/hr IV .Q8H ANISH Stop: 07/31/17 07:29 Last Admin: 06/10/17 07:02 Dose: 125 mls/hr Insulin Aspart (Novolog Insulin Sliding Scale) 0 units SUBQ ACHS ANISH PRN Reason: Protocol Stop: 07/31/17 07:29 Last Admin: 06/10/17 12:14 Dose: 4 units Lactobacillus Rhamnosus (Culturelle) 1 each PO DAILY ANISH Stop: 08/02/17 08:59 Last Admin: 06/10/17 09:25 Dose: 1 each Lorazepam (Ativan) 1 mg IVP Q6HR PRN; Protocol PRN Reason: Anxiety Stop: 07/31/17 07:30 Miscellaneous (Tpn Per Pharmacy) 1 ea MC DAILY ANISH Stop: 07/28/17 08:59 Miscellaneous (Probiotic Screen) 1 ea MC PRN PRN PRN Reason: PROTOCOL Stop: 08/01/17 11:22 Morphine Sulfate (Morphine) 2 mg IVP Q4HR PRN PRN Reason: Abdominal Pain Stop: 07/30/17 14:36 Last Admin: 06/10/17 14:06 Dose: 2 mg Morphine Sulfate (Morphine) 2 mg IV Q3HR PRN PRN Reason: Severe Pain Stop: 07/30/17 17:08 Last Admin: 06/05/17 21:22 Dose: 2 mg Ondansetron HCl (Zofran) 4 mg IV Q4H PRN PRN Reason: Nausea / Vomiting Stop: 08/02/17 20:54 Last Admin: 06/07/17 03:52 Dose: 4 mg Pantoprazole Sodium (Protonix) 40 mg PO BID [facility] Stop: 08/04/17 16:59 Last Admin: 06/10/17 09:25 Dose: 40 mg General: No acute distress HEENT: Atraumatic Cardiovascular: Regular rate, Normal S1, Normal S2 Abdomen: Bowel sounds, Soft Neurological: Other (weak) - Procedures Procedures: Procedures Procedure Code Date BYPASS STOMACH TO JEJUNUM, OPEN APPROACH [id number] 05/28/17 DRAINAGE OF PERITONEAL CAVITY WITH DRAIN DEV, OPEN APPROACH [id number] 01/25/17 FUSION OF STOMACH AND BOWEL 93087 05/28/17 INSERT INFUSION DEV IN R INT JUGULAR VEIN, PERC [id number] 01/25/17 INSERTION OF INFUSION DEVICE INTO R ATRIUM, PERC APPROACH [id number] 01/25/17 INSPECTION OF GASTROINTESTINAL TRACT, OPEN APPROACH [id number] 01/25/17 REMOVAL OF GALLBLADDER 06605 01/25/17 REOPENING OF ABDOMEN 42768 01/25/17 REPAIR STOMACH, OPEN APPROACH [id number] 01/25/17 RESECTION OF GALLBLADDER, OPEN APPROACH [id number] 01/25/17 RESPIRATORY VENTILATION, 24-96 CONSECUTIVE HOURS [id number] 05/28/17 RESPIRATORY VENTILATION, LESS THAN 24 CONSECUTIVE HOURS [id number] 01/25/17 STOMACH SURGERY PROCEDURE 09555 01/25/17 VENT MGMT INPAT INIT DAY 41335 01/25/17 Assessment/Plan - Problem List Patient Problems: All Active Problems H/O diabetes mellitus (Acute) Z86.39 H/O drug abuse (Acute) Z87.898 H/O: HTN (hypertension) (Acute) Z86.79 POSTCHOLECYSTECTOMY (Acute) UTI (urinary tract infection) (Acute) closeure og gastric perf (Acute) cplacement of new gj (Acute) h/o dementia (Acute) lysisi of adhesions (Acute) r/o sepsis (Acute) s/p surgery (Acute) septic shock (Acute) tachycardia (Acute) Nutritional Asmnt/Malnutr-PDOC - Dietary Evaluation Malnutrition Findings (Please click <Entered> for more info): Nutritional Asmnt/Malnutrition Start: 05/30/17 15: 01 Text: Status: Complete Freq: Document 05/30/17 15:01 GSUN (Rec: 05/30/17 15:47 [email or web address] [id number]) Nutritional Asmnt/Malnutrition Patient General Information Nutritional Screening High Risk Screening Diagnosis Abd pain, gastrocutaneous fistula, UTI, leukocytosis ( improved) Pertinent Medical Hx/Surgical Hx HTN, DM, cholecystectomy past January 2017 Subjective Information 71 year old female from SNF. Upper GI series today, RN stated possible surgeries pending. Pt was alert and pleasant, appeared anxious, aware of medical condition and TPN/nutrition plan of care. RD explained TPN again, pt has no further questions. Pt reported she has been on TPN since January 2017. Found SNF TPN order in transfer chart, noted under "dosing weight: 134.4lb," pt confirmed wt 130lb measured this month. Questionabled EMR weight, unable to obtain CBW due to bedscale not calibrated. Unable to compelte physical assessment due to heavy blankets. Pt report usual BM pattern once every 2-3 days, given laxative at [facility] to promote BM every day. Current Diet Order/ Nutrition Support D25% AA4.25% at 40ml/hr with IL20% 200ml, providing 1359kcal, 40g protein Pertinent Medications Novolog, TPN, Morphine, Multivitamins, Zofran, Protonix, Nacl 0.9% Pertinent Labs 05/29: triglycerides 89 WNL 05/30: BUN 29H (improving), creatinine WNL, glucose 197H, total bilirubin WNL, A1c 6.5H Nutritional Hx/Data Height 1.73 m Height (Calculated Centimeters) 172.7 Current Weight (lbs) 66.678 kg Weight (Calculated Kilograms) 66.7 Weight (Calculated Grams) 28585.1 Usual body Weight (lbs) 130 [place] Body Weight 154 Weight Status Approriate GI Symptoms GI Symptoms Vomitting Cultural/Ethnic/[employer] Belief [facility]: Dextrose 288gm, AA96gm, IL 18g, 2010ml, providing 1525kcal. Skin Integrity/Comment: Asad Eid. air saw operator: abdomen rash/fistula, otherwise skin intact. Estimated Nutritional Goals Calories/Kcals/Kg UBW 130lb/59.1kg Kcals Calculated 1478-1773kcal (25-30kcal/kg) Protein Calculated 59-83g (1-1.4g/kg) Fluid: ml Per MD Nutritional Problem 1. 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 Recommend TPN D19% AA5.5% at 50ml/hr with IL20% 250ml, providing 1539kcal, 66g protein. Dx DM, 50% of total kcal from dextrose. Carb load 2.6mg/kg/min (using SNF weight 134.4lb/61.1kg). Pt has been on TPN since January 2017. 2. Obtain CBW, bedscale inproperly calibrated during visit. Dosing weight 134.4lb noted under [facility] TPN order. Pt stated UBW 130lb. Expected Outcomes/Goals Expected Outcomes/Goals 1. Pt to meet 100% of estimated nutritional needs on TPN with tolerance.
--- NOTE | 2017-06-10 15:54 | Infectious Disease Prog Note ---
Infectious Disease Subjective - Review of Systems Service Date: 06/10/17 Subjective: Doing well. Infectious Disease Objective - Results Result Diagrams: 06/07/17 06:20 06/10/17 06:40 Recent Labs: Laboratory Last Values WBC 6.8 Th/cmm (4.8-10.8) 06/07/17 06:20 RBC 3.27 Mil/cmm (3.80-5.20) L 06/07/17 06:20 Hgb 10.1 gm/dL (11.7-16.1) L 06/07/17 06:20 Hct 29.5 % (35.0-45.0) L 06/07/17 06:20 MCV 90.3 fl (81-100) 06/07/17 06:20 MCH 30.9 pg (27.0-31.0) 06/07/17 06:20 MCHC Differential 34.2 pg (28.0-36.0) 06/07/17 06:20 RDW 14.4 % (11.5-20.0) 06/07/17 06:20 Plt Count 223 Th/cmm (150-400) 06/07/17 06:20 MPV 7.6 fl 06/07/17 06:20 Neutrophils % 59.1 % (40.0-80.0) 06/07/17 06:20 Band Neutrophils % 2 % (0-10) 06/02/17 07:25 Lymphocytes % 21.9 % (20.0-50.0) 06/07/17 06:20 Monocytes % 11.9 % (2.0-10.0) H 06/07/17 06:20 Eosinophils % 6.7 % (0.0-5.0) H 06/07/17 06:20 Basophils % 0.4 % (0.0-2.0) 06/07/17 06:20 Neutrophils (Manual) 82 % (40-80) H 06/02/17 07:25 Lymphocytes 10 % (20-50) L 06/02/17 07:25 Monocytes 6 % (2-10) 06/02/17 07:25 Platelet Estimate ADEQUATE (NORMAL) 06/02/17 07:25 Platelet Morphology NORMAL (NORMAL) 06/02/17 07:25 Anisocytosis 1+ 06/02/17 07:25 RBC Morph Micro Appear ABNORMAL (NORMAL) 06/02/17 07:25 PT 11.0 SECONDS (9.5-11.5) 05/31/17 05:25 INR 1.06 (0.5-1.4) 05/31/17 05:25 Specimen Source Arterial 06/02/17 09:51 Sample Site Right Radial 06/02/17 09:51 pH 7.39 (7.35-7.45) 06/02/17 09:51 pCO2 43.0 mmHg (35.0-45.0) 06/02/17 09:51 pO2 144.0 mmHg (80.0-100.0) H 06/02/17 09:51 HCO3 25.6 mEq/L (20.0-26.0) 06/02/17 09:51 Base Excess 0.8 mEq/L (-3.0-3.0) 06/02/17 09:51 O2 Saturation 99.0 % (92.0-100.0) 06/02/17 09:51 Luther Test PASS 06/02/17 09:51 Vent Rate 6 06/01/17 08:44 Inspired O2 28 06/02/17 09:51 Tidal Volume 450 06/01/17 08:44 PEEP 5 06/01/17 08:44 Pressure (ins/psv/peep) 15 06/01/17 08:44 Critical Value PW 06/02/17 09:51 Sodium 137 mEq/L (136-145) 06/10/17 06:40 Potassium 4.3 mEq/L (3.5-5.1) 06/10/17 06:40 Chloride 108 mEq/L (98-107) H 06/10/17 06:40 Carbon Dioxide 25.4 mEq/L (21.0-31.0) 06/10/17 06:40 Anion Gap 7.9 (7.0-16.0) 06/10/17 06:40 BUN 17 mg/dL (7-25) 06/10/17 06:40 Creatinine 1.0 mg/dL (0.6-1.2) 06/10/17 06:40 Est GFR ( Amer) > 60.0 ml/min (>90) 06/10/17 06:40 Est GFR (Non-Af Amer) 58.4 ml/min 06/10/17 06:40 BUN/Creatinine Ratio 17.0 08/04/17 06:40 Glucose 201 mg/dL (70-105) H 06/10/17 06:40 POC Glucose 176 MG/DL (70 - 105) H 06/10/17 11:33 Hemoglobin A1c % 6.5 % (4.0-6.0) H 05/30/17 06:16 Whole Bld Lactic Acid 1.25 mmol/L (0.60-1.99) 05/28/17 16:22 Calcium 8.3 mg/dL (8.6-10.3) L 06/10/17 06:40 Phosphorus 5.1 mg/dL (2.5-5.0) H 06/10/17 06:40 Magnesium 1.2 mg/dL (1.9-2.7) L 06/10/17 06:40 Total Bilirubin 0.3 mg/dL (0.3-1.0) 06/10/17 06:40 AST 25 U/L (13-39) 06/10/17 06:40 ALT 25 U/L (7-52) 06/10/17 06:40 Alkaline Phosphatase 127 U/L (34-104) H 06/10/17 06:40 Troponin I 0.01 ng/mL (0.01-0.05) 05/28/17 16:22 C-Reactive Protein 5.4 mg/dL (0.0-0.9) H 06/10/17 06:40 Total Protein 5.1 gm/dL (6.0-8.3) L 06/10/17 06:40 Albumin 2.4 gm/dL (3.7-5.3) L 06/10/17 06:40 Globulin 2.7 gm/dL 06/10/17 06:40 Albumin/Globulin Ratio 0.9 (1.0-1.8) L 06/10/17 06:40 Prealbumin 11 mg/dL (10-36) 06/04/17 04:39 Triglycerides 79 mg/dL (<150) 05/31/17 05:25 Cholesterol 103 mg/dL (<200) 05/31/17 05:25 LDL Cholesterol Direct 78 mg/dL (75-193) 05/29/17 06:35 HDL Cholesterol 23 mg/dL (23-92) 05/29/17 06:35 Amylase 60 U/L (29-103) 05/28/17 16:22 Lipase 33 U/L (11-82) 05/28/17 16:22 TSH 1.14 uIU/ml (0.34-5.60) 05/29/17 06:35 Urine Source [place] 06/09/17 22:35 Urine Color STRAW 06/09/17 22:35 Urine Clarity CLEAR (CLEAR) 06/09/17 22:35 Urine pH 6.5 (4.6 - 8.0) 06/09/17 22:35 Ur Specific [place] 1.010 (1.005-1.030) 06/09/17 22:35 Urine Protein NEGATIVE mg/dL (NEGATIVE) 06/09/17 22:35 Urine Glucose (UA) NEGATIVE mg/dL (NEGATIVE) 06/09/17 22:35 Urine Ketones NEGATIVE mg/dL (NEGATIVE) 06/09/17 22:35 Urine Blood MODERATE (NEGATIVE) H 06/09/17 22:35 Urine Nitrate NEGATIVE (NEGATIVE) 06/09/17 22:35 Urine Bilirubin NEGATIVE (NEGATIVE) 06/09/17 22:35 Urine Urobilinogen 0.2 E.U./dL (0.2 - 1.0) 06/09/17 22:35 Ur Leukocyte Esterase SMALL (NEGATIVE) H 06/09/17 22:35 Urine RBC 2-5 /hpf (0-5) 06/09/17 22:35 Urine WBC 0-2 /hpf (0-5) 06/09/17 22:35 Ur Epithelial Cells OCCASIONAL /lpf (FEW) 06/09/17 22:35 Urine Bacteria FEW /hpf (NONE SEEN) 06/09/17 22:35 Urine Mucus FEW /lpf (FEW) 05/28/17 19:00 Urine Opiates Screen POSITIVE (NEGATIVE) H 06/10/17 00:20 Urine Methadone Screen NEGATIVE (NEGATIVE) 06/10/17 00:20 Ur Barbiturates Screen NEGATIVE (NEGATIVE) 06/10/17 00:20 Ur Tricyclics Screen NEGATIVE (NEGATIVE) 06/10/17 00:20 Ur Phencyclidine Scrn NEGATIVE (NEGATIVE) 06/10/17 00:20 Amphetamines Screen NEGATIVE (NEGATIVE) 06/10/17 00:20 U Methamphetamines Scrn NEGATIVE (NEGATIVE) 06/10/17 00:20 U Benzodiazepines Scrn NEGATIVE (NEGATIVE) 06/10/17 00:20 U Cocaine Metab Screen NEGATIVE (NEGATIVE) 06/10/17 00:20 U Cannabinoids Screen NEGATIVE (NEGATIVE) 06/10/17 00:20 Blood Type O POSITIVE 06/02/17 05:22 Antibody Screen NEGATIVE 06/02/17 05:22 Crossmatch See Detail 06/02/17 05:22 - Physical Exam Vitals and I&O: Vital Signs Temp 97.4 F 06/10/17 15:29 Pulse 88 06/10/17 15:43 Resp 18 06/10/17 15:43 BP 118/61 06/10/17 15:29 Pulse Ox 97 06/10/17 15:43 Intake & Output 06/09/17 06/10/17 06/10/17 18:59 06:59 18:59 Intake Total 2396.667 1956.25 Output Total 680 30 Balance 2667.677 8511.25 -30 Weight (lbs) 69.808 kg 72.529 kg Intake: Intake, IV Amount 2096.667 1956.25 Multivitamin Inj 10 ml In 1096.667 Dextrose 70% 490 ml In Amino Acids 10% 500 ml In Intralipids 20% 200 ml @ 50 mls/hr IV .Q24H [facility] Rx#:[id number] Sodium Chloride 0.9% 1, 1000 1956.25 000 ml @ 125 mls/hr IV . Q8H [facility] Rx#:[id number] Oral 300 Output: Drainage 30 Left Lower Abdomen 30 Urine 650 Other 30 Other: # Bowel Movements 0 Active Medications: Current Medications Albuterol/Ipratropium (Duoneb Neb) 3 ml HHN Q4HRT [facility] Stop: 07/30/17 18:59 Last Admin: 06/10/17 15:42 Dose: 3 ml Budesonide (Pulmicort) 0.5 mg HHN BIDRT [facility] Stop: 07/30/17 18:59 Last Admin: 06/10/17 07:33 Dose: 0.5 mg Diltiazem HCl (Cardizem) 20 mg IVP Q3H PRN PRN Reason: HR => 120 bpm Stop: 07/30/17 21:14 Last Admin: 06/01/17 01:08 Dose: 20 mg Gentamicin Sulfate (Gentak 0.3% Ophth Soln) 1 drop EACH EYE BID [facility] Stop: 08/06/17 16:59 Last Admin: 06/10/17 09:25 Dose: 1 drop Multivitamins/Minerals 10 ml/Dextrose/ Amino Acids/Electrolytes/ Fat Emulsion Intravenous 1,200 mls @ 50 mls/hr IV .Q24H [facility] Stop: 07/29/17 14:59 Last Admin: 06/09/17 15:03 Dose: 50 mls/hr Sodium Chloride (Nacl 0.9%) 1,000 mls @ 125 mls/hr IV .Q8H [facility] Stop: 07/31/17 07:29 Last Admin: 06/10/17 07:02 Dose: 125 mls/hr Insulin Aspart (Novolog Insulin Sliding Scale) 0 units SUBQ ACHS ANISH PRN Reason: Protocol Stop: 07/31/17 07:29 Last Admin: 06/10/17 12:14 Dose: 4 units Lactobacillus Rhamnosus (Culturelle) 1 each PO DAILY [facility] Stop: 08/02/17 08:59 Last Admin: 06/10/17 09:25 Dose: 1 each Lorazepam (Ativan) 1 mg IVP Q6HR PRN; Protocol PRN Reason: Anxiety Stop: 07/31/17 07:30 Miscellaneous (Probiotic Screen) 1 ea MC PRN PRN PRN Reason: PROTOCOL Stop: 08/01/17 11:22 Morphine Sulfate (Morphine) 2 mg IVP Q4HR PRN PRN Reason: Abdominal Pain Stop: 07/30/17 14:36 Last Admin: 06/10/17 14:06 Dose: 2 mg Morphine Sulfate (Morphine) 2 mg IV Q3HR PRN PRN Reason: Severe Pain Stop: 07/30/17 17:08 Last Admin: 06/05/17 21:22 Dose: 2 mg Ondansetron HCl (Zofran) 4 mg IV Q4H PRN PRN Reason: Nausea / Vomiting Stop: 08/02/17 20:54 Last Admin: 06/07/17 03:52 Dose: 4 mg Pantoprazole Sodium (Protonix) 40 mg PO BID [facility] Stop: 08/04/17 16:59 Last Admin: 06/10/17 09:25 Dose: 40 mg General: no acute distress, well developed, well nourished HEENT: atraumatic, normocephalic, PERRLA, EOMI, moist mucous membrane Neck: supple, no thyromegaly Cardiovascular: S1S2, regular Lungs: clear to auscultation bilaterally, clear to percussion, no crackles Abdomen: soft, bowel sounds, other (yue drain was removed.), no tender, no distended, no mass Extremities: no cyanosis, no clubbing, no edema Neurological: awake, alert, oriented, CN 2-12 intact, focal findings Skin: intact - Procedures Procedures: Procedures Procedure Code Date BYPASS STOMACH TO JEJUNUM, OPEN APPROACH [id number] 05/28/17 DRAINAGE OF PERITONEAL CAVITY WITH DRAIN DEV, OPEN APPROACH [id number] 01/25/17 FUSION OF STOMACH AND BOWEL 21354 05/28/17 INSERT INFUSION DEV IN R INT JUGULAR VEIN, PERC [id number] 01/25/17 INSERTION OF INFUSION DEVICE INTO R ATRIUM, PERC APPROACH [id number] 01/25/17 INSPECTION OF GASTROINTESTINAL TRACT, OPEN APPROACH [id number] 01/25/17 REMOVAL OF GALLBLADDER 16851 01/25/17 REOPENING OF ABDOMEN 58571 01/25/17 REPAIR STOMACH, OPEN APPROACH [id number] 01/25/17 RESECTION OF GALLBLADDER, OPEN APPROACH [id number] 01/25/17 RESPIRATORY VENTILATION, 24-96 CONSECUTIVE HOURS [id number] 05/28/17 RESPIRATORY VENTILATION, LESS THAN 24 CONSECUTIVE HOURS [id number] 01/25/17 STOMACH SURGERY PROCEDURE 77323 01/25/17 VENT MGMT INPAT INIT DAY 66839 01/25/17 Infectious Disease Assmt/Plan - Problem List Patient Problems: All Active Problems H/O diabetes mellitus (Acute) Z86.39 H/O drug abuse (Acute) Z87.898 H/O: HTN (hypertension) (Acute) Z86.79 POSTCHOLECYSTECTOMY (Acute) UTI (urinary tract infection) (Acute) closeure og gastric perf (Acute) cplacement of new gj (Acute) h/o dementia (Acute) lysisi of adhesions (Acute) r/o sepsis (Acute) s/p surgery (Acute) septic shock (Acute) tachycardia (Acute) - Assessment Assessment: 1. Abdominal pain, likely peritonitis. treated. 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 treated surgically. 3. UTI. treated. 4. Leukocytosis. Improved. - Plan Plan: Off abx. Nutritional Asmnt/Malnutr-PDOC - Dietary Evaluation Malnutrition Findings (Please click <Entered> for more info): Nutritional Asmnt/Malnutrition Start: 05/30/17 15: 01 Text: Status: Complete Freq: Document 05/30/17 15:01 CHLOE (Rec: 05/30/17 15:47 [email or web address]) Nutritional Asmnt/Malnutrition Patient General Information Nutritional Screening High Risk Screening Diagnosis Abd pain, gastrocutaneous fistula, UTI, leukocytosis ( improved) Pertinent Medical Hx/Surgical Hx HTN, DM, cholecystectomy past January 2017 Subjective Information 71 year old female from SNF. Upper GI series today, RN stated possible surgeries pending. Pt was alert and pleasant, appeared anxious, aware of medical condition and TPN/nutrition plan of care. RD explained TPN again, pt has no further questions. Pt reported she has been on TPN since January 2017. Found SNF TPN order in transfer chart, noted under "dosing weight: 134.4lb," pt confirmed wt 130lb measured this month. Questionabled EMR weight, unable to obtain CBW due to bedscale not calibrated. Unable to compelte physical assessment due to heavy blankets. Pt report usual BM pattern once every 2-3 days, given laxative at SNF to promote BM every day. Current Diet Order/ Nutrition Support D25% AA4.25% at 40ml/hr with IL20% 200ml, providing 1359kcal, 40g protein Pertinent Medications Novolog, TPN, Morphine, Multivitamins, Zofran, Protonix, Nacl 0.9% Pertinent Labs 05/29: triglycerides 89 WNL 05/30: BUN 29H (improving), creatinine WNL, glucose 197H, total bilirubin WNL, A1c 6.5H Nutritional Hx/Data Height 1.73 m Height (Calculated Centimeters) 172.7 Current Weight (lbs) 66.678 kg Weight (Calculated Kilograms) 66.7 Weight (Calculated Grams) 18722.1 Usual body Weight (lbs) 130 [place] Body Weight 154 Weight Status Approriate GI Symptoms GI Symptoms Vomitting Cultural/Ethnic/[employer] [facility]: Dextrose 288gm, AA96gm, IL 18g, 2010ml, providing 1525kcal. Skin Integrity/Comment: Asad Eid. assessment manager: abdomen rash/fistula, otherwise skin intact. Estimated Nutritional Goals Calories/Kcals/Kg UBW 130lb/59.1kg Kcals Calculated 1478-1773kcal (25-30kcal/kg) Protein Calculated 59-83g (1-1.4g/kg) Fluid: ml Per MD Nutritional Problem 1. 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 Recommend TPN D19% AA5.5% at 50ml/hr with IL20% 250ml, providing 1539kcal, 66g protein. Dx DM, 50% of total kcal from dextrose. Carb load 2.6mg/kg/min (using SNF weight 134.4lb/61.1kg). Pt has been on TPN since January 2017. 2. Obtain CBW, bedscale inproperly calibrated during visit. Dosing weight 134.4lb noted under SNF TPN order. Pt stated UBW 130lb. Expected Outcomes/Goals Expected Outcomes/Goals 1. Pt to meet 100% of estimated nutritional needs on TPN with tolerance.
[2017-06-11] MEDS: Morphine Sulfate 2 mg/mL 1mL Syr IVP PRN ×3 (01:50→14:43)
--- NOTE | 2017-06-11 02:39 | Progress Notes ---
DATE: 06/10/2017 PROBLEM LIST: 1. Chronic obstructive pulmonary disease. 2. Status post respiratory failure. 3. Abdominal surgery. 4. Fistulectomy. SYMPTOMS: Nil, she says frustrated, wants to eat more, wants to go home. No specific new symptoms otherwise. PHYSICAL EXAMINATION: VITAL SIGNS: Temperature is 97.9, blood pressure 117/66. NECK: Veins not visualized. CHEST: Shows diminished air entry with occasional rhonchi. HEART: Regular. ABDOMEN: Soft, nontender. LABORATORY DATA: Electrolytes are okay. Glucose is 201 and leukocyte esterase is positive, opioids is positive for urine. ASSESSMENT: The patient clinically ____ respiratory-lynne stable, improving, still getting PPN versus liquid diet. PLANS AND SUGGESTIONS: We will continue other treatment per Dr. Coyne. Consider increase mobilization treatment, etc., and go from there. JOB# [id number]
[2017-06-11] MEDS: Albuterol/Ipratropium Neb 3 ML AERS HHN SCH ×4 (02:55→14:36)
[2017-06-11] MEDS: Sodium Chloride 0.9% 1,000 ML IV SCH (04:02)
[2017-06-11 06:56] LABS: ALB/GLOB RATIO 0.9 (1.0-1.8); ALKALINE PHOSPHATASE 140 U/L (34-104); ANION GAP 6.9 (7.0-16.0); BILIRUBIN,TOTAL 0.4 mg/dL (0.3-1.0); BUN - UREA NITROGEN 13 mg/dL (7-25); BUN/CREATININE RATIO 14.4; CALCIUM SERUM 8.9 mg/dL (8.6-10.3); CARBON DIOXIDE 27.8 mEq/L (21.0-31.0); CHLORIDE 103 mEq/L (98-107); CREATININE - SERUM 0.9 mg/dL (0.6-1.2); GLUCOSE 118 mg/dL (70-105); MAGNESIUM 1.3 mg/dL (1.9-2.7); PHOSPHOROUS 5.8 mg/dL (2.5-5.0); POTASSIUM SERUM 3.7 mEq/L (3.5-5.1); SGOT 25 U/L (13-39); SGPT/ALT 26 U/L (7-52); SODIUM SERUM 134 mEq/L (136-145); TRIGLYCERIDES 122 mg/dL (<150)
[2017-06-11] MEDS: INSULIN ASPART SLIDING SCALE 100 UNITS/ML UNIT SUBQ SCH ×2 (06:59→11:27)
[2017-06-11] MEDS: Budesonide 0.5 Mg/2 mL Ud HHN SCH (07:00)
[2017-06-11] MEDS: Lactobacillus Rhamnosus 10 Billion CFU Capsule PO SCH (08:28)
[2017-06-11] MEDS: Pantoprazole 40 mg EC Tab PO SCH (08:29)
[2017-06-11] MEDS: Gentamicin 0.3% Ophth Soln 5mL Bottle EACH EYE SCH (09:23)
[2017-06-11] MEDS ORDERED: Fleet Enema 135 mL RC ONE (10:33)
[2017-06-11] MEDS: Morphine Sulfate 2 mg/mL 1mL Syr IV PRN (11:25)
--- NOTE | 2017-06-11 12:28 | Progress Notes ---
DATE: 06/11/2017 SUBJECTIVE: The patient was seen in her room, lying in the bed. Per patient, she is feeling better and pain is in the tolerable level. No shortness of breath, otherwise the patient is comfortable, in no acute distress. OBJECTIVE: VITAL SIGNS: Temperature 98, heart rate of 87, blood pressure 143/68, respiration of 14, 99% on room air. HEENT: Head is atraumatic and normocephalic. Eyes: Bilateral conjunctivae are clear. Bilateral pupils are equally round and reactive. NECK: Supple. No JVD. CARDIOVASCULAR: S1 and S2, without murmur. PULMONARY: Clear to auscultation. GASTROINTESTINAL: Soft and nontender. Positive bowel sounds. MUSCULOSKELETAL: No clubbing. No cyanosis noted. ASSESSMENT: 1. Gastrocutaneous fistula. 2. Status post cholecystectomy. 3. Gastritis. 4. Urinary tract infection. 5. Dementia. 6. Epigastric pain. 7. Sepsis. PLAN: We will continue the diet as tolerated. The patient will be discharged to nursing home facility today, going to [place]. Dr. Aggarwal will follow the patient in nursing facility. Treatment plans were discussed with the patient's nurse. Treatment plans were also discussed with Dr. Aggarwal. JOB# [id number]
--- NOTE | 2017-06-11 22:18 | Progress Notes ---
DATE: 06/11/2017 PULMONARY PROGRESS NOTE PROBLEM LIST: 1. Chronic obstructive pulmonary disease. 2. Status post extubation. 3. Abdominal major surgery. SYMPTOMS: Nil. Wants to eat. Wants to go home. Breathing seems to be okay. No respiratory distress, etc. PHYSICAL EXAMINATION: VITAL SIGNS: Temperature is 97.3, blood pressure 123/61, and saturation is in 90s on 2 liters. NECK: Veins not visualized. Good bilateral carotid upstroke. CHEST: Shows occasional rhonchi with diminished air entry. HEART: Regular. ABDOMEN: Soft and nontender. LABORATORY DATA: Electrolytes are okay with albumin of 3.1. ASSESSMENT: The patient is clinically stable, not significantly changed with status post fistulectomy in the abdomen with previous history of abscess, history of narcotic dependence as well as history suspect of obstructive sleep apnea syndrome with chronic obstructive pulmonary disease. PLANS AND SUGGESTIONS: We will continue current care. We will follow through pending her oral feeding, etc., and go from there. JOB# [id number]
--- NOTE | 2017-06-14 01:31 | Discharge Summary ---
DATE OF DISCHARGE: 06/11/2017 The patient is a very well known patient to me. She was at [facility]. Apparently, she had some increasing pus coming out of her fistula. She had percutaneous fistula. The patient was admitted to [facility] wherein the patient was given antibiotics and was treated. The patient previously had multiple abscesses which had a couple of laparotomy down of these fistulas and she also had a problem with fistula bleeding, and the patient is known to have some hypertension, and the patient was treated. At this time, Dr. Coyne decided to go ahead and do the fistulectomy . The patient improved and was able to take food orally. The patient was stable condition on 06/11/2017, admitted on 05/28/2017. The patient was discharged to [facility], where I will be following the patient. CONDITION ON DISCHARGE: Stable. MEDICATION: See medication reconciliation sheet. JOB# [id number]
== END 2017-06-11 15:30 | DRG 853 ==
LOC: ER 15:40 → MSI 18:48 → ICU 05-31 14:50 → TELE 06-04 12:32 → MSI 06-06 12:03
PROVIDERS: ADMIT Internal Medicine; ATTEND Internal Medicine
PROC: 0D160ZA Bypass Stomach to Jejunum, Open Approach (ICD-10-PCS; principal; 2017-05-31)
PROC: 5A1935Z Respiratory Ventilation, Less than 24 Consecutive Hours (ICD-10-PCS; 2017-05-31)
PROC: 0DNW0ZZ Release Peritoneum, Open Approach (ICD-10-PCS; 2017-05-31)
PROC: 30233N1 Transfusion of Nonautologous Red Blood Cells into Peripheral Vein, Percutaneous Approach (ICD-10-PCS; 2017-06-02)
PROC: 3E0336Z Introduction of Nutritional Substance into Peripheral Vein, Percutaneous Approach (ICD-10-PCS; 2017-06-04)
DX: A41.9 Sepsis, unspecified organism (principal); E43 Unspecified severe protein-calorie malnutrition; J96.00 Acute respiratory failure, unspecified whether with hypoxia or hypercapnia; E41 Nutritional marasmus; K31.6 Fistula of stomach and duodenum; K65.9 Peritonitis, unspecified; F03.90 Unspecified dementia, unspecified severity, without behavioral disturbance, psychotic disturbance, mood disturbance, and anxiety; J44.9 Chronic obstructive pulmonary disease, unspecified; I47.1 Supraventricular tachycardia; F11.20 Opioid dependence, uncomplicated; N39.0 Urinary tract infection, site not specified; I97.89 Other postprocedural complications and disorders of the circulatory system, not elsewhere classified; K56.7 Ileus, unspecified; E66.9 Obesity, unspecified; I10 Essential (primary) hypertension; E11.9 Type 2 diabetes mellitus without complications; R51 Headache; D25.9 Leiomyoma of uterus, unspecified; D64.9 Anemia, unspecified; K29.00 Acute gastritis without bleeding; B95.62 Methicillin resistant Staphylococcus aureus infection as the cause of diseases classified elsewhere; G47.33 Obstructive sleep apnea (adult) (pediatric); Z68.23 Body mass index [BMI] 23.0-23.9, adult; Z90.49 Acquired absence of other specified parts of digestive tract; Z88.0 Allergy status to penicillin; Z88.2 Allergy status to sulfonamides; Z79.4 Long term (current) use of insulin; Z88.8 Allergy status to other drugs, medicaments and biological substances; Z83.3 Family history of diabetes mellitus
CPT/HCPCS: 36415-UA; 36600-90; 71010-TC; 74000-TC; 80048-TC; 80053-TC; 80061-TC; 80307; 81001-TC; 82150-TC; 82465-TC; 82803-TC; 82947-TC; 82948-90; 83036-90; 83605; 83690-TC; 83735-TC; 84100-TC; 84134-90; 84443-TC; 84478-TC; 84484-TC; 85007-TC; 85025-TC; 85027-TC; 85610-TC; 86141-TC; 86850-TC; 86900-TC; 86901-TC; 86922-TC; 87070-90; 87075-90; 87086-90; 87205-90; 90779; 90799; 93005; 94002; 94003; 94660; 94760; 96372; 96374; 96375; 96376; 97530; 99201; C9113; J0696; J0770; J1815; J2001; J2020; J2185; J2250; J2270; J2405; J2704; J3475; J3480; J7030; P9016; Q0162; V2790; X3904; X6024; X6598; Z7610